=== PATIENT | male | born 1955 | race Caucasian/White ===

== ENCOUNTER 2023-07-23 12:24 | Observation (INO) | payer OTHER, MEDICARE, SELFPAY ==
[2023-07-23] VITALS (8 sets, daily range): BP systolic 114–172; BP diastolic 63–91; PULSE 67–80; RESP 16–20; TEMP 36.4–36.8; O2SAT 95–98; BMI 24.4; BMI 25.0
--- NOTE | 2023-07-23 12:41 | ECG_ITS ---
[facility] Test Date: 2023-07-23 Pat Name: ELSA RUTHERFORD Department: Room: - Gender: Male [employer]: : 1955 Requested By: YOANA MARI Order Number: [id number] Reading MD: SHILOH PATTERSON Measurements Intervals [place] Rate: 59 P: 52 IA: 160 QRS: 37 QRSD: 106 T: 73 QT: 430 QTc: 430 Interpretive Statements 1100 Sinus rhythm 4068 Nonspecific Twave abnormality 9130 borderline ECG No previous ECG available for comparison Electronically Signed On 07-24-2023 6:55:44 EST by SHILOH PATTERSON
--- NOTE | 2023-07-23 12:42 | ED_ITS ---
HPI - Abdominal Pain General Chief Complaint: Abdominal Pain Stated Complaint: CONSTIPATION Time Seen by Provider: 07/23/23 12:26 Source: patient Mode of arrival: walk-in History of Present Illness HPI narrative: 68-year-old male presents for abdominal pain. He thinks he may be getting another small bowel obstruction. Symptoms began within the last half a day and had a small bowel movement this morning. He is nauseous but has had no vomiting or fever. His pain is moderate and continuous. Related Data Home Medications Medication Instructions Recorded Confirmed gabapentin 300 mg capsule 300 mg PO Q12H 07/23/23 07/23/23 lisinopril 5 mg tablet 5 mg PO DAILY 07/23/23 07/23/23 metoprolol succinate 25 mg 25 mg PO DAILY 07/23/23 07/23/23 tablet,extended release 24 hr pantoprazole 20 mg tablet,delayed 20 mg PO DAILY 07/23/23 07/23/23 release ranolazine 500 mg tablet,extended 500 mg PO Q12H 07/23/23 07/23/23 release,12 hr sitagliptin phosphate 100 mg 100 mg PO DAILY 07/23/23 07/23/23 tablet (Januvia) tamsulosin 0.4 mg capsule 0.4 mg PO Q24H 07/23/23 07/23/23 venlafaxine 150 mg 150 mg PO DAILY 07/23/23 07/23/23 capsule,extended release 24 hr Allergies Allergy/AdvReac Type Severity Reaction Status Date / Time hydromorphone [From Dilaudid] AdvReac Unknown Anaphylaxis Verified 07/23/23 12:33 Review of Systems ROS Narrative A ten point review of systems is negative except as noted above. Exam Narrative Exam Narrative: Nurses note and vital signs reviewed and patient is not hypoxic. General: The patient appears well and in no apparent distress. Patient is resting comfortably on cart. Skin: Warm, dry, no pallor noted. There is no rash noted. Head: Normocephalic, atraumatic Eye: Normal conjunctiva, no drainage Ears, Nose, Mouth, and Throat: oral mucosa is moist. Nares patent. Cardiovascular: Regular Rate and Rhythm Respiratory: Patient is in no distress, no accessory muscle use, lungs are clear to auscultation, no wheezing, rales or rhonchi Back: non-tender GI: bowel sounds are hypoactive. He has numerous old healed surgical scars present. He has mild diffuse tenderness. Musculoskeletal: The patient has no evidence of calf tenderness, no pitting edema, symmetrical pulses noted bilaterally Neurological: A&O, normal speech Psychiatric: Cooperative Constitutional Vital Signs, click to edit/add: Last Vital Signs Temp 97.8 F 07/23/23 12:27 Pulse 67 07/23/23 12:27 Resp 16 07/23/23 12:27 BP 172/91 H 07/23/23 12:27 Pulse Ox 98 07/23/23 12:27 O2 Del Method Room Air 07/23/23 12:27 Course Vital Signs Vital signs: Vital Signs Temperature 97.8 F 07/23/23 12:27 Pulse Rate 67 07/23/23 12:27 Respiratory Rate 16 07/23/23 12:27 Blood Pressure 172/91 H 07/23/23 12:27 Pulse Oximetry 98 07/23/23 12:27 Oxygen Delivery Method Room Air 07/23/23 12:27 Temperature 97.8 F 07/23/23 12:27 Pulse Rate 67 07/23/23 12:27 Respiratory Rate 16 07/23/23 12:27 Blood Pressure 172/91 H 07/23/23 12:27 Pulse Oximetry 98 07/23/23 12:27 Oxygen Delivery Method Room Air 07/23/23 12:27 MDM - Abdominal Pain MDM Narrative Medical decision making narrative: abnormal CAT scan is noted with small bowel fluid-filled and dilated but no definite obstruction or stricture. I've spoken to Dr. Dunn and the patient is being admitted for observation. Treatment diagnosis and disposition were discussed with the patient and his . Differential Diagnosis Differential diagnosis: Likely abdominal pain, constipation, diverticulitis, gastroenteritis, pancreatitis and small bowel obstruction Lab Data Attestation: I reviewed the patient's lab results. Labs: Lab Results 07/23/23 Range/Units 12:41 WBC 9.1 (4.0-11.0) 10^3/uL RBC 5.08 (4.70-6.10) 10^6/uL Hgb 14.3 (14.0-18.0) g/dL Hct 43.7 (42.0-54.0) % MCV 86.0 (80.0-94.0) fL MCH 28.1 (25.9-34.0) pg MCHC 32.7 (29.9-35.2) g/dL RDW 13.0 (11.0-15.0) % Plt Count 140 L (150-450) 10^3/uL MPV 9.9 (9.5-13.5) fL Neut % (Auto) 84.4 H (43.0-75.0) % Lymph % (Auto) 8.3 L (20.5-60.0) % Garrard % (Auto) 6.2 (1.7-12.0) % Eos % (Auto) 0.8 L (0.9-7.0) % Baso % (Auto) 0.1 L (0.2-2.0) % Neut # (Auto) 7.7 H (1.4-6.5) 10^3/uL Lymph # (Auto) 0.8 L (1.2-3.8) 10^3/uL Garrard # (Auto) 0.6 (0.3-0.8) 10^3/uL Eos # (Auto) 0.1 (0.0-0.7) 10^3/uL Baso # (Auto) 0.0 (0.0-0.1) 10^3/uL Abs Immat Gran (auto) 0.02 (0.00-0.03) 10^3/uL Imm/Tot Granulo (auto) 0.2 (0.0-0.5) % Sodium 133 L (136-145) mmol/L Potassium 4.2 (3.5-5.1) mmol/L Chloride 96 L (98-107) mmol/L Carbon Dioxide 29.4 (21.0-32.0) mmol/L Anion Gap 11.8 BUN 14.0 (7.0-18.0) mg/dL Creatinine 1.21 (0.70-1.30) mg/dL Est GFR ( Amer) >60 (>=60) Est GFR (Non-Af Amer) 60 (>=60) BUN/Creatinine Ratio 11.6 Glucose 198 H (74-106) mg/dL Calcium 9.6 (8.5-10.1) mg/dL Total Bilirubin 0.6 (0.2-1.0) mg/dL Direct Bilirubin 0.1 (0.0-0.2) mg/dL AST 39 H (15-37) U/L ALT 31 (16-63) U/L Alkaline Phosphatase 60 (46-116) U/L Total Protein 7.8 (6.4-8.2) g/dL Albumin 4.1 (3.4-5.0) g/dL Globulin 3.7 g/dL Albumin/Globulin Ratio 1.1 Amylase 46 (25-115) U/L Lipase 35.0 (16.0-77.0) U/L Imaging Data CT scan - abdomen: Radiologist's impression: Procedure: CT abdomen pelvis w con EXAMINATION: CT abdomen pelvis w con HISTORY: diffuse abdominal pain, possible bowel obstruction COMPARISON: CT abdomen pelvis 01/03/2023 TECHNIQUE: Axial, Coronal, and Sagittal images were obtained without and/or with IV contrast as indicated by examination type. Dose reduction techniques were achieved by using automated exposure control and/or adjustment of mA and/or kV according to patient size and/or use of iterative reconstruction technique. FINDINGS: LUNG BASES: Stable trainee shaped opacity within posterior left lung base suspected represent scarring or atelectasis. LIVER: Stable small cysts or hemangiomas. No enlargement, atrophy, suspicious density, or significant focal lesion. BILIARY: Cholecystectomy. PANCREAS: No lesion, fluid collection, or abnormal duct dilatation. Partial pancreatectomy; no appreciable body or tail. SPLEEN: No enlargement or focal lesion. ADRENALS: No mass or enlargement. KIDNEYS: Stable small hypodense lesion within right and left kidney suspected represent cysts. Multiple nonobstructing stones bilaterally. BOWEL/MESENTERY: Fluid-filled distended loops of mid and distal small bowel up to point of anastomosis with the proximal transverse colon; no appreciable obstruction or stricture at site of anastomosis. No abnormal bowel wall thickening or appreciable mass. No free air or free fluid. AORTA/VASCULAR: Atherosclerotic disease. No aneurysm or dissection. RETROPERITONEUM: No mass or adenopathy. LYMPH NODES: No adenopathy. URINARY BLADDER: Mild circumferential wall thickening, likely muscular hypertrophy. PELVIC ORGANS: No visible mass. Pelvic organs appropriate for patient age. ABDOMINAL WALL: No mass or hernia. BONES: No bony lesion or fracture. Moderate disc space narrowing L4-5. OTHER: Negative. IMPRESSION: 1. Abnormal dilation of mid and distal small bowel which is fluid-filled. This was seen on prior studies well, and it extends to its anastomosis with the proximal transverse colon. No identifiable reason for change in caliber at the anastomosis. Electronically authenticated by: SHAUNA REYES Date: 07/23/2023 14:43 Discharge Plan Discharge Chief Complaint: Abdominal Pain Time of Disposition Decision: 16:11 Prescriptions / Home Meds: No Action gabapentin 300 mg capsule 300 mg PO Q12H lisinopril 5 mg tablet 5 mg PO DAILY metoprolol succinate 25 mg tablet extended release 24 hr 25 mg PO DAILY ranolazine 500 mg tablet extended release 12 hr 500 mg PO Q12H Januvia 100 mg tablet 100 mg PO DAILY tamsulosin 0.4 mg capsule 0.4 mg PO Q24H venlafaxine 150 mg capsule,extended release 24hr 150 mg PO DAILY pantoprazole 20 mg tablet,delayed release (DR/EC) 20 mg PO DAILY
[2023-07-23 12:50] LABS: Basophils Percent Auto 0.1 % (0.2-2.0); Eosinophils Absolute Auto 0.1 10^3/uL (0.0-0.7); Eosinophils Percent Auto 0.8 % (0.9-7.0); Hematocrit 43.7 % (42.0-54.0); Hemoglobin 14.3 g/dL (14.0-18.0); Immature Granulocytes Abs Auto 0.02 10^3/uL (0.00-0.03); Immature Granulocytes Pct Auto 0.2 % (0.0-0.5); Lymphocytes Absolute Auto 0.8 10^3/uL (1.2-3.8); Lymphocytes Percent Auto 8.3 % (20.5-60.0); Mean Corpuscular HGB Conc 32.7 g/dL (29.9-35.2); Mean Corpuscular Hemoglobin 28.1 pg (25.9-34.0); Mean Platelet Volume 9.9 fL (9.5-13.5); Monocytes Absolute Auto 0.6 10^3/uL (0.3-0.8); Monocytes Percent Auto 6.2 % (1.7-12.0); Neutrophils Absolute Auto 7.7 10^3/uL (1.4-6.5); Neutrophils Percent Auto 84.4 % (43.0-75.0); Platelet Count 140 10^3/uL (150-450); Red Blood Count 5.08 10^6/uL (4.70-6.10); White Blood Count 9.1 10^3/uL (4.0-11.0)
[2023-07-23 13:04] LABS: Alanine Aminotransferase 31 U/L (16-63); Albumin Globulin Ratio 1.1; Albumin Level 4.1 g/dL (3.4-5.0); Alkaline Phosphatase 60 U/L (46-116); Amylase 46 U/L (25-115); Anion Gap 11.8; Aspartate Amino Transferase 39 U/L (15-37); BUN Creatinine Ratio 11.6; Bilirubin Direct 0.1 mg/dL (0.0-0.2); Bilirubin Total 0.6 mg/dL (0.2-1.0); Calcium 9.6 mg/dL (8.5-10.1); Carbon Dioxide 29.4 mmol/L (21.0-32.0); Chloride 96 mmol/L (98-107); Estimated GFR (African America >60 (>=60); Estimated GFR (Non-African Ame 60 (>=60); Globulin 3.7 g/dL; Glucose 198 mg/dL (74-106); Potassium 4.2 mmol/L (3.5-5.1); Sodium 133 mmol/L (136-145); Total Protein 7.8 g/dL (6.4-8.2)
[2023-07-23] MEDS: ONDANSETRON PF 4 MG/2 ML VIAL IV ×3 (13:07→19:33)
[2023-07-23] MEDS: MORPHINE SULFATE 4 MG/ML VIAL IV ×2 (13:07→15:12)
[2023-07-23] MEDS: 0.9 % SODIUM CHLORIDE 500 ML IV (13:07)
[2023-07-23] MEDS: 0.9 % SODIUM CHLORIDE 1,000 ML 125 ML IV (16:01)
--- NOTE | 2023-07-23 16:13 | PM.HP ---
H&P: HPI History of Present Illness Chief complaint: CONSTIPATION ADB PAIN ABNORMAL CT SCAN Narrative: Patient is a 68 y.o White male with past medical history of Type 2 diabetes, non-insulin dependent, GERD, HTN, Depression, BPH, and diabetic neuropathy who presents with 2 day history of abdominal pain. He has history of bowel obstructions. He had a Gallbladder removal and colon resection in the past with anastomosis. He did have small BM this morning. Some nausea, no vomiting or fever. CT scan showed dilated Bowel but no definite obstruction. Dr. Dunn of was notified and recommended admission for observation, pain control, NPO and IVF. Patient will be admitted to [facility] for further plan of care. At the time of admission exam he notes diffuse abdominal pain, some nausea, no fevers or chills, no n/v. Review of Systems ROS Narrative ROS: a complete review of systems were reviewed with patient and are positive as below or listed in History of Chief Complaint. General: no fever, chills, night sweats Head: no headache, trauma, visual changes, nausea or vomiting Skin: no reported rashes, itching or sores Eyes: no blurriness of vision Ears: no reported hearing loss, vertigo, earache, or tinnitus Throat: no sore throat, hoarseness, swelling of neck, or tongue pain Heart: no chest pain Lungs: no shortness of breath or cough GI: no diarrhea or vomiting but nausea Urinary: no urinary urgency, frequency or pain Neuro: no numbness or tingling HEM: no bleeding issues or bruising ENDO: no thyroid problems Psych: no anxiety or depression PFSH PFSH Medical History BPH (benign prostatic hyperplasia) ?N40.0 - Benign prostatic hyperplasia without lower urinary tract symptoms (ICD-10) Diabetic neuropathic arthropathy ?E11.610 - Type 2 diabetes mellitus with diabetic neuropathic arthropathy (ICD-10) GERD (gastroesophageal reflux disease) ?K21.9 - Gastro-esophageal reflux disease without esophagitis (ICD-10) Hypertension ?I10 - Essential (primary) hypertension (ICD-10) Type 2 diabetes mellitus ?E11.9 - Type 2 diabetes mellitus without complications (ICD-10) Surgical History (Updated 07/23/23 @ 17:00 by Amy Espinoza, [employer]) H/O heart bypass surgery ?Z95.1 - Presence of aortocoronary bypass graft (ICD-10) History of bowel resection ?Z90.49 - Acquired absence of other specified parts of digestive tract (ICD-10) Meds Home Medications and Allergies Home Medications Medication Instructions Recorded Confirmed Type atorvastatin 10 mg tablet (Lipitor) 10 mg PO QPM 07/23/23 07/23/23 History ferrous sulfate 325 mg (65 mg 325 mg PO DAILY 07/23/23 07/23/23 History iron) tablet (FeroSul) gabapentin 300 mg capsule 300 mg PO Q12H 07/23/23 07/23/23 History insulin degludec 200 unit/mL (3 40 unit subcut DAILY 07/23/23 07/23/23 History mL) subcutaneous pen (Tresiba FlexTouch U-200 insulin) isosorbide mononitrate 60 mg 60 mg PO DAILY 07/23/23 07/23/23 History tablet,extended release 24 hr lisinopril 5 mg tablet 5 mg PO DAILY 07/23/23 07/23/23 History metformin 1,000 mg tablet 1,000 mg PO BID 07/23/23 07/23/23 History metoprolol succinate 25 mg 25 mg PO DAILY 07/23/23 07/23/23 History tablet,extended release 24 hr pantoprazole 20 mg tablet,delayed 20 mg PO DAILY 07/23/23 07/23/23 History release polyethylene glycol 3350 17 gram 17 g PO DAILY 07/23/23 07/23/23 History oral powder packet (Miralax) ranolazine 500 mg tablet,extended 500 mg PO Q12H 07/23/23 07/23/23 History release,12 hr sitagliptin phosphate 100 mg 100 mg PO DAILY 07/23/23 07/23/23 History tablet (Januvia) sucralfate 1 gram tablet (Carafate) 1 g PO ACHS 07/23/23 07/23/23 History tamsulosin 0.4 mg capsule 0.4 mg PO Q24H 07/23/23 07/23/23 History venlafaxine 150 mg 150 mg PO DAILY 07/23/23 07/23/23 History capsule,extended release 24 hr Allergies Allergy/AdvReac Type Severity Reaction Status Date / Time hydromorphone [From Dilaudid] AdvReac Unknown Anaphylaxis Verified 07/23/23 12:33 Exam Narrative Exam Narrative: General: Patient is alert, and oriented to person, place and time with normal affect, proper hygiene Skin: no visible rashes, or ulcers Head: atraumatic, acephalic Eyes: PERRLA, no nystagmus present, conjunctiva clear, no scleral icterus Ears: normal gross auditory acuity Nose: symmetric, no discharge, no maxillary or frontal sinus tenderness Mouth/Throat: no erythema, exudate, or tonsillar enlargement, normal dentition Neck: no masses palpated, normal thyroid, no JVD or audible carotid bruits Heart: Normal rate and rhythm, holosystolic murmur no rubs or gallops Lungs: no audible wheezes, crackles and normal breath sounds all lung goodson Abdomen: diminished bowel sounds but present x 4 quadrants, mild distension, incisional/reducible hernia Musculoskeletal: no swelling bilateral lower extremities Neuro: CN II-X grossly intact Constitutional Vital Signs, click to edit/add: Last Vital Signs Temp 97.8 F 07/23/23 12:27 Pulse 67 07/23/23 12:27 Resp 16 07/23/23 12:27 BP 172/91 H 07/23/23 12:27 Pulse Ox 98 07/23/23 12:27 O2 Del Method Room Air 07/23/23 12:27 Results Labs Labs: Short CBC 07/23/23 Range/Units 12:41 WBC 9.1 (4.0-11.0) 10^3/uL Hgb 14.3 (14.0-18.0) g/dL Hct 43.7 (42.0-54.0) % Plt Count 140 L (150-450) 10^3/uL BMP 07/23/23 12:41 Sodium 133 L Potassium 4.2 Chloride 96 L Carbon Dioxide 29.4 BUN 14.0 Creatinine 1.21 Glucose 198 H Calcium 9.6 Liver Function 07/23/23 Range/Units 12:41 Total Bilirubin 0.6 (0.2-1.0) mg/dL Direct Bilirubin 0.1 (0.0-0.2) mg/dL AST 39 H (15-37) U/L ALT 31 (16-63) U/L Alkaline Phosphatase 60 (46-116) U/L Albumin 4.1 (3.4-5.0) g/dL Assessment and Plan Assessment and Plan (1) Intestinal adhesions with partial obstruction: Assessment and Plan: dilated bowel seen on CT, history of abdominal surgery, WBC's normal; NPO, IVF with NS @125, pain control but narcotics can slow functioning; may benefit from prokinetic agent like Reglan in the future, consult General Surgery. No need for NG unless vomiting occurs. (2) Abdominal pain: Assessment and Plan: see #1 (3) Hypertension: Assessment and Plan: resume home medications (4) Type 2 diabetes mellitus: Assessment and Plan: SSI, monitor glucose 6 hours (5) Diabetic neuropathic arthropathy: Assessment and Plan: continue gabapentin (6) GERD (gastroesophageal reflux disease): Assessment and Plan: continue protonix (7) BPH (benign prostatic hyperplasia): Assessment and Plan: continue flomax Plan patient is a full code lovenox for dvt prophylaxis patient is observation status and is not expected to stay more than 2 midnights
[2023-07-23 17:05] LABS: Bilirubin Urine NEGATIVE (NEGATIVE); Blood Urine NEGATIVE (NEGATIVE); Clarity Urine CLEAR (CLEAR); Color Urine YELLOW (YELLOW); Glucose Urine UA NEGATIVE (NEGATIVE); Ketones Urine NEGATIVE (NEGATIVE); Leukocyte Esterase Urine NEGATIVE (NEGATIVE); Nitrite Urine NEGATIVE (NEGATIVE); Protein Urine NEGATIVE (NEG/TRACE); Urobilinogen Urine 0.2 EU/dL (0.2-1.0); pH Urine 5.5 (5.0-9.0)
[2023-07-23 17:15] LABS: Bacteria Urine NONE SEEN #/HPF (NONE SEEN); Cast Seen? NONE SEEN #/LPF (NONE SEEN); Crystals Seen? None Seen #/HPF (None Seen); Mucus Urine NONE SEEN (NONE SEEN); RBC Urine NONE SEEN #/HPF (0-2); Squamous Epithelial Cell Urine RARE #/LPF (NONE/RARE); WBC Urine NONE SEEN #/HPF (NONE SEEN)
[2023-07-23 18:11] LABS: Glucometer 194 mg/dL (74-106)
[2023-07-23] MEDS: MORPHINE SULFATE 2 MG/ML SYRINGE IV (19:34)
[2023-07-23] MEDS: ENOXAPARIN SODIUM 40 MG/0.4 ML SYRINGE SUBQ (22:07)
[2023-07-23] MEDS: PANTOPRAZOLE SODIUM 40 MG VIAL IV (22:08)
[2023-07-24] VITALS (11 sets, daily range): BP systolic 111–117; BP diastolic 61–75; PULSE 73–101; RESP 18; TEMP 36.6–36.8; O2SAT 90–93
[2023-07-24 00:04] LABS: Glucometer 186 mg/dL (74-106)
--- NOTE | 2023-07-24 04:06 | PC.NURSE ---
Patient had a medium loose BM with large amount of undigested corn noted. Strong odor. pain level was a 0-10 and no nausea reported after BM
[2023-07-24 05:39] LABS: Alanine Aminotransferase 95 U/L (16-63); Albumin Globulin Ratio 0.9; Albumin Level 3.2 g/dL (3.4-5.0); Alkaline Phosphatase 65 U/L (46-116); Anion Gap 13.2; Aspartate Amino Transferase 60 U/L (15-37); Bilirubin Total 0.8 mg/dL (0.2-1.0); Calcium 8.6 mg/dL (8.5-10.1); Carbon Dioxide 26.9 mmol/L (21.0-32.0); Chloride 99 mmol/L (98-107); Estimated GFR (African America >60 (>=60); Estimated GFR (Non-African Ame >60 (>=60); Globulin 3.5 g/dL; Glucose 189 mg/dL (74-106); Magnesium 1.6 mg/dL (1.8-2.4); Potassium 4.1 mmol/L (3.5-5.1); Sodium 135 mmol/L (136-145); Total Protein 6.7 g/dL (6.4-8.2)
[2023-07-24 05:47] LABS: Basophils Percent Auto 0.3 % (0.2-2.0); Eosinophils Absolute Auto 0.1 10^3/uL (0.0-0.7); Eosinophils Percent Auto 2.1 % (0.9-7.0); Hematocrit 42.3 % (42.0-54.0); Hemoglobin 13.9 g/dL (14.0-18.0); Lymphocytes Absolute Auto 0.3 10^3/uL (1.2-3.8); Mean Corpuscular HGB Conc 32.9 g/dL (29.9-35.2); Mean Corpuscular Hemoglobin 28.4 pg (25.9-34.0); Mean Corpuscular Volume 86.5 fL (80.0-94.0); Mean Platelet Volume 10.5 fL (9.5-13.5); Monocytes Absolute Auto 0.6 10^3/uL (0.3-0.8); Monocytes Percent Auto 18.2 % (1.7-12.0); Neutrophils Absolute Auto 2.4 10^3/uL (1.4-6.5); Neutrophils Percent Auto 71.4 % (43.0-75.0); Platelet Count 127 10^3/uL (150-450); Red Blood Count 4.89 10^6/uL (4.70-6.10); Red Cell Distribution Width 13.2 % (11.0-15.0); White Blood Count 3.4 10^3/uL (4.0-11.0)
[2023-07-24 06:21] LABS: Glucometer 176 mg/dL (74-106)
--- NOTE | 2023-07-24 07:04 | PM.GSCN ---
History of Present Illness Consult details Consult date: 07/24/23 Reason for consult: abdominal pain Requesting physician: Franklin Madera Narrative: Zach Espinoza is a 68-year-old male seen on the [facility] floor for abdominal pain, nausea, and vomiting. Patient presented to the Emergency Department on 07/23 due to abdominal pain and nausea. The pain started on the morning of the and progressively got worse requiring him to seek treatment. Patient states these symptoms started in the right lower quadrant and spread throughout the entire abdomen. The pain is continuous and progressed quickly. He describes it as a tightness/pressure and rated it a 10/10 upon arrival to the Emergency Department. Patient has experienced these symptoms before, as he has had multiple small bowel obstructions in the past. Today, patient feels a lot better. His abdominal pain has almost completely subsided but he still feels some soreness. He vomited multiple times late last night which helped reduce his pain. Patient has an extensive history of multiple abdominal surgeries. He stated back in 2012 he had a gallbladder leak/rupture which resulted in multiple surgeries and an extensive hospital stay. He said these procedures were performed by Dr. Umanzor at [facility]. Review of Systems ROS Status of ROS 10 or more systems reviewed and unremarkable except as noted in history and below [facility] Medical History BPH (benign prostatic hyperplasia) ?N40.0 - Benign prostatic hyperplasia without lower urinary tract symptoms (ICD-10) Diabetic neuropathic arthropathy ?E11.610 - Type 2 diabetes mellitus with diabetic neuropathic arthropathy (ICD-10) GERD (gastroesophageal reflux disease) ?K21.9 - Gastro-esophageal reflux disease without esophagitis (ICD-10) Hypertension ?I10 - Essential (primary) hypertension (ICD-10) Type 2 diabetes mellitus ?E11.9 - Type 2 diabetes mellitus without complications (ICD-10) Surgical History H/O heart bypass surgery ?Z95.1 - Presence of aortocoronary bypass graft (ICD-10) History of bowel resection ?Z90.49 - Acquired absence of other specified parts of digestive tract (ICD-10) Hx of cholecystectomy ?Z90.49 - Acquired absence of other specified parts of digestive tract (ICD-10) Family History Father Family history of CHF (congestive heart failure) Family history of COPD (chronic obstructive pulmonary disease) Family history of cancer Family history of hypertension Grandfather Family history of diabetes mellitus Family history of myocardial infarction Mother Family history of hypertension Family history of stroke Social History Within the past year, how often did you have a drink containing alcohol: 4 or more times a week Within the past year, how many standard drinks containing alcohol did you have on a typical day: 1 or 2 Within the past year, how often did you have six or more drinks on one occasion: never Total score: 0 Score interpretation: Questions 2 and 3 are 0. It can be assumed that the patient's drinking is below the recommended limits. However, please confirm the accuracy of the patient's alcohol intake over the last few months. 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 Known occupational exposures/hazards: No Highest level of school completed/degree received: high school graduate Do you want help with school or training: No Are you now , , , , never or living with a partner: In a typical week, how many times do you talk on the telephone with family, friends, or neighbors: 3 or more times per week How often do you get together with friends or relatives: 3 or more times per week How often do you attend judaism or anabaptist services: never Do you belong to any clubs or organizations such as judaism groups unions, fraternal or athletic groups, or school groups: no Total score: 2 Score interpretation: A score of greater than or equal to 2 indicates the lowest level of social isolation. Little interest or pleasure in doing things: not at all Feeling down, depressed, or hopeless: not at all Feel stressed/tense/nervous/anxious/difficulty sleeping: not at all Due to disability, difficulty making decisions: No Do you think of yourself as: straight/heterosexual Gender Identity: male Meds Home Medications and Allergies Home Medications Medication Instructions Recorded Confirmed Type atorvastatin 10 mg tablet (Lipitor) 10 mg PO QPM 07/23/23 07/23/23 History ferrous sulfate 325 mg (65 mg 325 mg PO DAILY 07/23/23 07/23/23 History iron) tablet (FeroSul) gabapentin 300 mg capsule 300 mg PO Q12H 07/23/23 07/23/23 History insulin degludec 200 unit/mL (3 40 unit subcut DAILY 07/23/23 07/23/23 History mL) subcutaneous pen (Tresiba FlexTouch U-200 insulin) isosorbide mononitrate 60 mg 60 mg PO DAILY 07/23/23 07/23/23 History tablet,extended release 24 hr lisinopril 5 mg tablet 5 mg PO DAILY 07/23/23 07/23/23 History metformin 1,000 mg tablet 1,000 mg PO BID 07/23/23 07/23/23 History metoprolol succinate 25 mg 25 mg PO DAILY 07/23/23 07/23/23 History tablet,extended release 24 hr pantoprazole 20 mg tablet,delayed 20 mg PO DAILY 07/23/23 07/23/23 History release polyethylene glycol 3350 17 gram 17 g PO DAILY 07/23/23 07/23/23 History oral powder packet (Miralax) ranolazine 500 mg tablet,extended 500 mg PO Q12H 07/23/23 07/23/23 History release,12 hr sitagliptin phosphate 100 mg 100 mg PO DAILY 07/23/23 07/23/23 History tablet (Januvia) sucralfate 1 gram tablet (Carafate) 1 g PO ACHS 07/23/23 07/23/23 History tamsulosin 0.4 mg capsule 0.4 mg PO Q24H 07/23/23 07/23/23 History venlafaxine 150 mg 150 mg PO DAILY 07/23/23 07/23/23 History capsule,extended release 24 hr Allergies Allergy/AdvReac Type Severity Reaction Status Date / Time hydromorphone [From Dilaudid] AdvReac Unknown Anaphylaxis Verified 07/23/23 12:33 Exam Constitutional Vital Signs, click to edit/add: Last Vital Signs Temp 97.8 F 07/24/23 05:09 Pulse 97 H 07/24/23 05:09 Resp 18 07/24/23 05:09 BP 111/75 07/24/23 05:09 Pulse Ox 93 L 07/24/23 05:09 O2 Del Method Room Air 07/24/23 05:09 Respiratory Common normals: normal respiratory effort and clear to auscultation bilaterally Cardio Common normals: regular rate and regular rhythm Heart sounds: murmur GI Common normals: soft to palpation Auscultation: hypoactive bowel sounds (x4) Palpation: tender Results Labs Labs: Abnormal lab results 07/23/23 07/23/23 07/24/23 Range/Units 12:41 18:10 00:02 WBC (4.0-11.0) 10^3/uL Hgb (14.0-18.0) g/dL Plt Count 140 L (150-450) 10^3/uL Neut % (Auto) 84.4 H (43.0-75.0) % Lymph % (Auto) 8.3 L (20.5-60.0) % [place] % (Auto) (1.7-12.0) % Eos % (Auto) 0.8 L (0.9-7.0) % Baso % (Auto) 0.1 L (0.2-2.0) % Neut # (Auto) 7.7 H (1.4-6.5) 10^3/uL Lymph # (Auto) 0.8 L (1.2-3.8) 10^3/uL Sodium 133 L (136-145) mmol/L Chloride 96 L (98-107) mmol/L BUN (7.0-18.0) mg/dL Glucose 198 H (74-106) mg/dL Magnesium (1.8-2.4) mg/dL AST 39 H (15-37) U/L ALT (16-63) U/L Albumin (3.4-5.0) g/dL POC Glucose 194 H 186 H (74-106) mg/dL 07/24/23 07/24/23 Range/Units 04:51 06:17 WBC 3.4 L (4.0-11.0) 10^3/uL Hgb 13.9 L (14.0-18.0) g/dL Plt Count 127 L (150-450) 10^3/uL Neut % (Auto) (43.0-75.0) % Lymph % (Auto) 8.0 L (20.5-60.0) % [place] % (Auto) 18.2 H (1.7-12.0) % Eos % (Auto) (0.9-7.0) % Baso % (Auto) (0.2-2.0) % Neut # (Auto) (1.4-6.5) 10^3/uL Lymph # (Auto) 0.3 L (1.2-3.8) 10^3/uL Sodium 135 L (136-145) mmol/L [place] (98-107) mmol/L BUN 20.0 H (7.0-18.0) mg/dL Glucose 189 H (74-106) mg/dL Magnesium 1.6 L (1.8-2.4) mg/dL AST 60 H (15-37) U/L ALT 95 H (16-63) U/L Albumin 3.2 L (3.4-5.0) g/dL POC Glucose 176 H (74-106) mg/dL Diabetes panel 07/23/23 07/24/23 Range/Units 12:41 04:51 Sodium 133 L 135 L (136-145) mmol/L Potassium 4.2 4.1 (3.5-5.1) mmol/L Chloride 96 L 99 (98-107) mmol/L Carbon Dioxide 29.4 26.9 (21.0-32.0) mmol/L BUN 14.0 20.0 H (7.0-18.0) mg/dL Creatinine 1.21 1.11 (0.70-1.30) mg/dL Glucose 198 H 189 H (74-106) mg/dL Calcium 9.6 8.6 (8.5-10.1) mg/dL AST 39 H 60 H (15-37) U/L ALT 31 95 H (16-63) U/L Alkaline Phosphatase 60 65 (46-116) U/L Total Protein 7.8 6.7 (6.4-8.2) g/dL Albumin 4.1 3.2 L (3.4-5.0) g/dL Calcium panel 07/23/23 07/24/23 Range/Units 12:41 04:51 Calcium 9.6 8.6 (8.5-10.1) mg/dL Albumin 4.1 3.2 L (3.4-5.0) g/dL Pituitary panel 07/23/23 07/24/23 Range/Units 12:41 04:51 Sodium 133 L 135 L (136-145) mmol/L Potassium 4.2 4.1 (3.5-5.1) mmol/L Chloride 96 L 99 (98-107) mmol/L Carbon Dioxide 29.4 26.9 (21.0-32.0) mmol/L BUN 14.0 20.0 H (7.0-18.0) mg/dL Creatinine 1.21 1.11 (0.70-1.30) mg/dL Glucose 198 H 189 H (74-106) mg/dL Calcium 9.6 8.6 (8.5-10.1) mg/dL Adrenal panel 07/23/23 07/24/23 Range/Units 12:41 04:51 Sodium 133 L 135 L (136-145) mmol/L Potassium 4.2 4.1 (3.5-5.1) mmol/L Chloride 96 L 99 (98-107) mmol/L Carbon Dioxide 29.4 26.9 (21.0-32.0) mmol/L BUN 14.0 20.0 H (7.0-18.0) mg/dL Creatinine 1.21 1.11 (0.70-1.30) mg/dL Glucose 198 H 189 H (74-106) mg/dL Calcium 9.6 8.6 (8.5-10.1) mg/dL Total Bilirubin 0.6 0.8 (0.2-1.0) mg/dL AST 39 H 60 H (15-37) U/L ALT 31 95 H (16-63) U/L Alkaline Phosphatase 60 65 (46-116) U/L Total Protein 7.8 6.7 (6.4-8.2) g/dL Albumin 4.1 3.2 L (3.4-5.0) g/dL All other labs normal. Imaging Abdominal x-ray: report reviewed Abdomen CT scan report/results: report reviewed Assessment and Plan Assessment and Plan (1) Intestinal adhesions with partial obstruction: (2) Abdominal pain: (3) Hypertension: (4) Type 2 diabetes mellitus: (5) Diabetic neuropathic arthropathy: (6) GERD (gastroesophageal reflux disease): (7) BPH (benign prostatic hyperplasia): Plan Clinically, patient appears well no distress. Order small bowel series to investigate if obstruction is present.
--- NOTE | 2023-07-24 07:19 | FL_ITS ---
[address] [address] Patient Name: ELSA RUTHERFORD MRN: [id number] date: 1955 Sex: M Assigned Patient Location: [place] Current Patient Location: [place] Accession/Order Number: [id number] Exam Date: 07/24/2023 08:00 Report Date: 07/24/2023 10:06 At the request of: MARTA MARTINEZ Procedure: FL small bowel EXAM: EXAMINATION: FL small bowel HISTORY: abdominal pain COMPARISON: 07/23/2023 FLUOROSCOPY TIME: Fluoroscopy was not utilized TECHNIQUE: Small bowel series was performed in the usual manner. [employer] abdominal radiograph was performed. Standard level fluoroscopic mode of operation utilized. FINDINGS: DUODENUM: Normal. No ulceration or diverticulum. JEJUNUM: Normal. Normal motility. No obstruction or visible lesion. ILEUM: Normal. Normal motility. No obstruction or visible lesion. OTHER: Right nephrolithiasis measuring up to 10 mm in the lower pole. Degenerative changes of the spine and hips. Small bowel transit time of 30 minutes FL/FL small bowel IMPRESSION: Normal exam with a nonobstructive bowel gas pattern Electronically authenticated by: MARY LOPES Date: 07/24/2023 10:06
[2023-07-24] MEDS: 0.9 % SODIUM CHLORIDE 1,000 ML 125 ML IV (08:17)
--- NOTE | 2023-07-24 09:12 | CM.NOTE ---
Medicare Outpatient Observation Notice discussed with pt, pt verbalizes understanding and signs paper. Original given to pt and copy placed on pt's chart.
--- NOTE | 2023-07-24 09:21 | PM.PN ---
Progress Note: Subjective Subjective Interval history: The Patient is feeling much improved this morning. He had 2 episodes of vomiting and 2 BM's this morning. Had small bowel follow through and was normal today. He is eager to start eating, no fevers or chills. abdominal pain is improved. Exam Narrative Exam Narrative: General: Patient is alert, and oriented to person, place and time with normal affect, proper hygiene Skin: no visible rashes, or ulcers Head: atraumatic, acephalic Heart: Normal rate and rhythm, holosystolic murmur no rubs or gallops Lungs: no audible wheezes, crackles and normal breath sounds all lung [place]son Abdomen: audible bowel sounds x 4 quadrants, no distension, incisional/reducible hernia Musculoskeletal: no swelling bilateral lower extremities Neuro: CN II-X grossly intact Constitutional Vital Signs, click to edit/add: Last Vital Signs Temp 97.8 F 07/24/23 05:09 Pulse 90 07/24/23 07:58 Resp 18 07/24/23 05:09 BP 111/75 07/24/23 05:09 Pulse Ox 93 L 07/24/23 05:09 O2 Del Method Room Air 07/24/23 05:09 Progress Note: Objective Labs Labs: Short CBC 07/23/23 07/24/23 Range/Units 12:41 04:51 WBC 9.1 3.4 L (4.0-11.0) 10^3/uL Hgb 14.3 13.9 L (14.0-18.0) g/dL Hct 43.7 42.3 (42.0-54.0) % Plt Count 140 L 127 L (150-450) 10^3/uL BMP 07/23/23 07/24/23 12:41 04:51 Sodium 133 L 135 L Potassium 4.2 4.1 Chloride 96 L 99 Carbon Dioxide 29.4 26.9 BUN 14.0 20.0 H Creatinine 1.21 1.11 Glucose 198 H 189 H Calcium 9.6 8.6 Liver Function 07/23/23 07/24/23 Range/Units 12:41 04:51 Total Bilirubin 0.6 0.8 (0.2-1.0) mg/dL Direct Bilirubin 0.1 (0.0-0.2) mg/dL AST 39 H 60 H (15-37) U/L ALT 31 95 H (16-63) U/L Alkaline Phosphatase 60 65 (46-116) U/L Albumin 4.1 3.2 L (3.4-5.0) g/dL Urine 07/23/23 Range/Units 16:49 Urine Color Yellow (YELLOW) Urine Clarity Clear (CLEAR) Urine pH 5.5 (5.0-9.0) Ur Specific [place] 1.010 (1.005-1.025) Urine Protein Negative (NEG/TRACE) mg/dL Urine Glucose (UA) Negative (NEGATIVE) mg/dL Progress Note: A&P Assessment and Plan (1) Intestinal adhesions with partial obstruction: Assessment and Plan: dilated bowel seen on CT, history of abdominal surgery, WBC's normal; consult General Surgery. symptoms improved with small bowel follow through study today, had a few BM's, will advance diet and may discharge home this evening. (2) Abdominal pain: Assessment and Plan: improved. (3) Hypertension: Assessment and Plan: resume home medications (4) Type 2 diabetes mellitus: Assessment and Plan: SSI, monitor glucose 6 hours (5) Diabetic neuropathic arthropathy: Assessment and Plan: continue gabapentin (6) GERD (gastroesophageal reflux disease): Assessment and Plan: continue protonix (7) BPH (benign prostatic hyperplasia): Assessment and Plan: continue flomax Plan patient is a full code lovenox for dvt prophylaxis patient is observation status and is not expected to stay more than 2 midnights
--- NOTE | 2023-07-24 10:51 | CM.NOTE ---
Rounds made with Dr. Zafar, will advance pt diet today.
[2023-07-24] MEDS: TAMSULOSIN HCL 0.4 MG CAPSULE PO (12:10)
[2023-07-24] MEDS: RANOLAZINE 500 MG TAB.ER.12H PO (12:10)
[2023-07-24] MEDS: LISINOPRIL 5 MG TABLET PO (12:10)
[2023-07-24] MEDS: ISOSORBIDE MONONITRATE 60 MG TAB.ER.24H PO (12:10)
[2023-07-24] MEDS: VENLAFAXINE HCL ER 150 MG CAPSULE PO (12:10)
[2023-07-24] MEDS: METOPROLOL SUCCINATE 25 MG TAB.ER.24H PO (12:10)
[2023-07-24] MEDS: GABAPENTIN 300 MG CAPSULE PO (12:10)
--- NOTE | 2023-07-24 16:40 | PM.DS1 ---
DS: Providers Provider Date of admission: 07/23/23 16:41 Primary care physician: Nikunj Ireland MD Admitting clinician: Emili Zafar Consults: 07/23/23 15:59 Consult to General Surgeon Routine Consulting Provider: Donato Dunn Reason for consultation: partial SBO Has provider been notified: Yes Occupational Therapy Eval and Treat Routine Reason for consultation: weakness Has provider been notified: No Physical Therapy Eval and Treat Routine Reason for consultation: weakness Has provider been notified: No Attending physician on discharge: Emili Zafar DS: Diagnosis Discharge Diagnosis (1) Intestinal adhesions with partial obstruction: (2) Abdominal pain: (3) Hypertension: (4) Type 2 diabetes mellitus: (5) Diabetic neuropathic arthropathy: (6) GERD (gastroesophageal reflux disease): (7) BPH (benign prostatic hyperplasia): DS: Summary Hospital Course Hospital Course: dilated bowel seen on CT, history of abdominal surgery, WBC's normal; NPO, IVF with NS @125, pain control but narcotics can slow functioning; consult General Surgery. No need for NG. Patient had small bowel follow through study, started passing stool. Feels much better. Normal study. advanced diet and doing great. Discharge home tonight. close follow up with PCP. Return to ER with worsening symptoms. Status at Discharge Functional status at discharge: independent ambulation Overall status at discharge: patient is back to baseline Time Spent with Patient Time attestation: Total time spent providing and/or coordinating discharge services: Time spent: less than 30 minutes Exam Narrative Exam Narrative: No changes to discharge exam from the progress note dated 07/24/23 Constitutional Vital Signs, click to edit/add: Last Vital Signs Temp 98.2 F 07/24/23 14:15 Pulse 84 07/24/23 16:24 Resp 18 07/24/23 14:15 BP 117/61 07/24/23 14:15 Pulse Ox 90 L 07/24/23 14:15 O2 Del Method Room Air 07/24/23 14:15 DS: Data Data Completed and Pending Labs on day of discharge: Labs from last 24 hours 07/24/23 07/24/23 07/24/23 06:17 04:51 00:02 WBC 3.4 L RBC 4.89 Hgb 13.9 L Hct 42.3 MCV 86.5 MCH 28.4 MCHC 32.9 RDW 13.2 Plt Count 127 L MPV 10.5 Neut % (Auto) 71.4 Lymph % (Auto) 8.0 L [place] % (Auto) 18.2 H Eos % (Auto) 2.1 Baso % (Auto) 0.3 Neut # (Auto) 2.4 Lymph # (Auto) 0.3 L [place] # (Auto) 0.6 Eos # (Auto) 0.1 Baso # (Auto) 0.0 Abs Immat Gran (auto) 0.00 Imm/Tot Granulo (auto) 0.0 Sodium 135 L Potassium 4.1 Chloride 99 Carbon Dioxide 26.9 Anion Gap 13.2 BUN 20.0 H Creatinine 1.11 Est GFR ( Amer) >60 Est GFR (Non-Af Amer) >60 BUN/Creatinine Ratio 18.0 Glucose 189 H Calcium 8.6 Magnesium 1.6 L Total Bilirubin 0.8 AST 60 H ALT 95 H Alkaline Phosphatase 65 Total Protein 6.7 Albumin 3.2 L Globulin 3.5 Albumin/Globulin Ratio 0.9 Urine Color Urine Clarity Urine pH Ur Specific [place] Urine Protein Urine Glucose (UA) Urine Ketones Urine Occult Blood Urine Nitrite Urine Bilirubin Urine Urobilinogen Ur Leukocyte Esterase Urine RBC Urine WBC Ur Squamous Epith Cells Urine Crystals Urine Bacteria Urine Casts Urine Mucus POC Glucose 176 H 186 H 07/23/23 07/23/23 18:10 16:49 WBC RBC Hgb Hct MCV MCH MCHC RDW Plt Count MPV Neut % (Auto) Lymph % (Auto) [place] % (Auto) Eos % (Auto) Baso % (Auto) Neut # (Auto) Lymph # (Auto) [place] # (Auto) Eos # (Auto) Baso # (Auto) Abs Immat Gran (auto) Imm/Tot Granulo (auto) Sodium Potassium Chloride Carbon Dioxide Anion Gap BUN Creatinine Est GFR ( Amer) Est GFR (Non-Af Amer) BUN/Creatinine Ratio Glucose Calcium Magnesium Total Bilirubin AST ALT Alkaline Phosphatase Total Protein Albumin Globulin Albumin/Globulin Ratio Urine Color Yellow Urine Clarity Clear Urine pH 5.5 Ur Specific [place] 1.010 Urine Protein Negative Urine Glucose (UA) Negative Urine Ketones Negative Urine Occult Blood Negative Urine Nitrite Negative Urine Bilirubin Negative Urine Urobilinogen 0.2 Ur Leukocyte Esterase Negative Urine RBC None seen Urine WBC None seen Ur Squamous Epith Cells Rare Urine Crystals None seen Urine Bacteria None seen Urine Casts None seen Urine Mucus None seen POC Glucose 194 H Discharge Plan Discharge Disposition: (FBC OBS) Home, Self-Care Condition: Good Discharge Medications: Continued gabapentin 300 mg capsule 300 mg PO Q12H lisinopril 5 mg tablet 5 mg PO DAILY metoprolol succinate 25 mg tablet extended release 24 hr 25 mg PO DAILY ranolazine 500 mg tablet extended release 12 hr 500 mg PO Q12H Januvia 100 mg tablet 100 mg PO DAILY tamsulosin 0.4 mg capsule 0.4 mg PO Q24H venlafaxine 150 mg capsule,extended release 24hr 150 mg PO DAILY pantoprazole 20 mg tablet,delayed release (DR/EC) 20 mg PO DAILY insulin degludec [Tresiba FlexTouch U-200] 200 unit/mL (3 mL) insulin pen 40 unit subcut DAILY atorvastatin [Lipitor] 10 mg tablet 10 mg PO QPM metformin 1,000 mg tablet 1,000 mg PO BID ferrous sulfate [FeroSul] 325 mg (65 mg iron) tablet 325 mg PO DAILY sucralfate [Carafate] 1 gram tablet 1 g PO ACHS polyethylene glycol 3350 [Miralax] 17 gram powder in packet 17 g PO DAILY isosorbide mononitrate 60 mg tablet extended release 24 hr 60 mg PO DAILY Activity: increase activity as tolerated Diet: advance to your usual diet Follow Up Appointments: follow up with pcp 5-7 days
--- NOTE | 2023-07-25 12:16 | CM.DCFOLLOWU ---
Person spoke with: Yolanda-stated patient was out running an errand How are you feeling? he has been doing ok and easing back into foods How is your pain? none Did you understand your discharge instructions? yes Do you have any questions about your discharge instructions? no Were you given any prescriptions at discharge? n/a Were you able to get your prescriptions filled? n/a Do you understand how to take your medications as ordered? yes Do you have any questions about your follow up appointment and do you plan to keep your follow up appointment? No. Has a follow up appointment with Dr. Ireland 07/31/2023 Is there anything else that you would like to discuss? no Questions/Comments/Concerns/Other:
== END 2023-07-24 17:45 | disposition home or self-care (01) ==
LOC: ER 16:13 → MS 17:01
PROVIDERS: Admitting Provider Family Medicine; Emergency Provider Emergency Medicine; PCP Family Medicine; Visit Provider Internal Medicine
DX: K56.51 Intestinal adhesions [bands], with partial obstruction (principal); R10.9 Unspecified abdominal pain; I10 Essential (primary) hypertension; E11.610 Type 2 diabetes mellitus with diabetic neuropathic arthropathy; K21.9 Gastro-esophageal reflux disease without esophagitis; N40.0 Benign prostatic hyperplasia without lower urinary tract symptoms; Z79.899 Other long term (current) drug therapy; Z90.49 Acquired absence of other specified parts of digestive tract; Z95.1 Presence of aortocoronary bypass graft; Z79.84 Long term (current) use of oral hypoglycemic drugs; Z79.4 Long term (current) use of insulin
CPT/HCPCS: 36415; 74177; 74250; 80048; 80053; 80076; 81001; 82150; 82948; 83690; 83735; 85025; 93005; 96372; 96374; 96375; 96376; 97165; 99285; G0378; Q9963; Q9967

== ENCOUNTER 2023-12-08 03:10 | Inpatient (IN) | payer MEDICARE, SELFPAY ==
[2023-12-08] VITALS (13 sets, daily range): BP systolic 131–202; BP diastolic 69–100; PULSE 69–77; TEMP 36.3–36.6; O2SAT 91–96; BMI 25.1; BMI 24.9
--- NOTE | 2023-12-08 03:19 | CT_ITS ---
The [address] [address] Patient Name: ELSA RUTHERFORD MRN: [id number] date: 1955 Sex: M Assigned Patient Location: ER Current Patient Location: ER Accession/Order Number: [id number] Exam Date: 12/08/2023 04:25 Report Date: 12/08/2023 05:09 At the request of: NIGEL DIAZ Procedure: CT abdomen pelvis w con CT OF THE ABDOMEN AND PELVIS WITH CONTRAST: 12/08/2023 4:25 AM EDT CLINICAL HISTORY: Lower abdominal pain. History of previous bowel obstruction. COMPARISONS: CT abdomen and pelvis with contrast 07/23/2023 TECHNIQUE: Thin section axial CT images were obtained from the lung bases to the pubis symphysis. This CT exam was performed using one or more of the following dose reduction techniques: Automated exposure control, adjustment of the mA and/or kV according to patient size, or use of iterative reconstruction technique. Thin section coronal and sagittal images were reconstructed from the axial data set. All images were reviewed and interpreted. CONTRAST: 100 mL Omnipaque 300 IV. FINDINGS: LUNG BASES: Dependent bibasilar atelectasis greater on the left. Cardiac chambers are normal in size. Mitral and aortic valvular calcifications are suggested. No basilar pleural fluid. Normal GE junction. Gastric fluid otherwise normal stomach. LIVER: A simple inferior right hepatic lobe cyst measures almost 1.5 cm x 1.4 cm. Mean attenuation values less than 4 Hounsfield units postcontrast consistent with a simple cyst. No other liver lesion. Moderate to severe diffuse hepatic steatosis. Normal portal vein enhancement. GALLBLADDER: Not visualized. Presumed surgically absent. Correlate with history. BILIARY TREE: No ductal dilatation. PANCREAS: Head and uncinate process of pancreas are visualized. No duct dilation and region. The body and tail are either atrophied or absent. There is some linear stranding along the ventral margin of the SMV. SPLEEN: Normal appearance of the spleen. No splenomegaly, mass or cyst. Trace of stranding and fluid along the inferior margin. There is some prominent veins at the hilum. Gastrosplenic varices suggested. ADRENALS: Normal. KIDNEYS: Stable nonobstructing calculi in mid pole calyx right kidney, too noted, larger more lateral measures 6 mm more medial 4 mm. Stable simple cortical cyst right kidney less than 1 cm. Stable large right lower pole nonobstructing calculus measuring 7 mm. No right hydronephrosis or ureteral calculus. There is a persistent mildly complex cyst with overlying cortical scarring at lower pole left kidney. Unchanged from 07/23/2023 measuring 2.1 cm. There are some tiny scattered cortical cysts at upper pole unchanged. Punctate calculus anterior mid upper pole calyx left kidney measuring 1 mm. URINARY BLADDER: Grossly unremarkable. PELVIC STRUCTURES: Unremarkable. BOWEL: Stomach is distended with fluid and debris. Changes of prior right hemicolectomy with ileocolic anastomosis in the right upper quadrant. There is recurrent at least partial if not early complete small bowel obstruction multiple dilated air-fluid filled loops of small bowel throughout the abdomen centrally and extending into the pelvis. More prominent distention of the bowel loops in the right upper quadrant. There is some stranding along the mesentery with mesenteric inflammation and vascular engorgement in this area. Trace fluid along the right paracolic gutter. Exact cause of obstruction and clear obstruction not clearly identified with suspected seizure related given extensive postoperative changes in the right upper quadrant. It appears to be somewhere in the region of the anastomosis where the bowel loops coalesce and are matted together. There is some fecalization of small bowel loops in the right lower quadrant consistent with suspected complete obstruction. Distal large bowel loops are decompressed and unremarkable other than some scattered diverticulosis. No acute colitis. APPENDIX: Surgically absent resected along with right hemicolectomy. LYMPH NODES: No pathologically enlarged lymph nodes identified. PERITONEUM: No intraperitoneal free air. No free intraperitoneal fluid. MESENTERY: Unremarkable. RETROPERITONEUM: The retroperitoneum is unremarkable. AORTA: Normal aorta and iliac arteries. Scattered atherosclerotic calcific plaque throughout the wall of the aorta. BODY WALL: No body wall mass. OSSEOUS STRUCTURES: No destructive osseous lesion or displaced fracture. CT/CT abdomen pelvis w con IMPRESSION: 1. Recurrent small bowel obstruction presumably from adhesions right upper quadrant with multiple dilated air and fluid-filled small bowel loops throughout the mid and right lower quadrant of abdomen. Maximum dilation of bowel at the right lower quadrant. Recommend NG tube placement and surgical consult and follow-up. Gastric distention with debris. 2. Changes of previous right hemicolectomy and ileocolic anastomosis the right upper quadrant. 3. Stable nonobstructing calculi right kidney with stable scattered cysts. 4. Complex cyst in the lower pole left kidney with overlying cortical scarring again noted. Scattered punctate nonobstructing left renal calculi. No hydronephrosis. Electronically authenticated by: ALENA TALBERT Date: 12/08/2023 05:09
--- NOTE | 2023-12-08 03:19 | ED.ABDPAIN1 ---
HPI - Abdominal Pain General Chief Complaint: Abdominal Pain Stated Complaint: Nausea Time Seen by Provider: 12/08/23 03:16 History of Present Illness HPI narrative: 68-year-old male presents for abdominal pain. It is across the mid abdomen and he thinks he might have a bowel obstruction, he has had them previously. No fever. He has not been vomiting or having diarrhea. The pain is moderate and continuous. Related Data Home Medications ?Medication ?Instructions ?Recorded ?Confirmed atorvastatin 10 mg tablet (Lipitor) 10 mg PO QPM 07/23/23 12/08/23 ferrous sulfate 325 mg (65 mg 325 mg PO DAILY 07/23/23 12/08/23 iron) tablet (FeroSul) gabapentin 300 mg capsule 300 mg PO Q12H 07/23/23 12/08/23 insulin degludec 200 unit/mL (3 40 unit subcut DAILY 07/23/23 12/08/23 mL) subcutaneous pen (Tresiba FlexTouch U-200 insulin) isosorbide mononitrate 60 mg 60 mg PO DAILY 07/23/23 12/08/23 tablet,extended release 24 hr metformin 1,000 mg tablet 1,000 mg PO BID 07/23/23 12/08/23 metoprolol succinate 25 mg 25 mg PO DAILY 07/23/23 12/08/23 tablet,extended release 24 hr pantoprazole 20 mg tablet,delayed 20 mg PO Q12H 07/23/23 12/08/23 release polyethylene glycol 3350 17 gram 17 g PO DAILY 07/23/23 12/08/23 oral powder packet (Miralax) ranolazine 500 mg tablet,extended 500 mg PO Q12H 07/23/23 12/08/23 release,12 hr sitagliptin phosphate 100 mg 100 mg PO DAILY 07/23/23 12/08/23 tablet (Januvia) sucralfate 1 gram tablet (Carafate) 1 g PO ACHS 07/23/23 12/08/23 tamsulosin 0.4 mg capsule 0.4 mg PO Q24H 07/23/23 12/08/23 venlafaxine 150 mg 150 mg PO DAILY 07/23/23 12/08/23 capsule,extended release 24 hr losartan 50 mg tablet mg 12/08/23 naproxen 500 mg tablet mg 12/08/23 Allergies Allergy/AdvReac Type Severity Reaction Status Date / Time dronabinol [From Marinol] Allergy Severe Hallucinati Verified 12/08/23 03:29 ng hydromorphone [From Dilaudid] AdvReac Unknown Anaphylaxis Verified 12/08/23 03:29 Review of Systems ROS Narrative A ten point review of systems is negative except as noted above. [facility] Medical History (Updated 12/08/23 @ 05:27 by Franklin Madera MD) BPH (benign prostatic hyperplasia) ?N40.0 - Benign prostatic hyperplasia without lower urinary tract symptoms (ICD-10) GERD (gastroesophageal reflux disease) ?K21.9 - Gastro-esophageal reflux disease without esophagitis (ICD-10) Diabetic neuropathic arthropathy ?E11.610 - Type 2 diabetes mellitus with diabetic neuropathic arthropathy (ICD-10) Type 2 diabetes mellitus ?E11.9 - Type 2 diabetes mellitus without complications (ICD-10) Hypertension ?I10 - Essential (primary) hypertension (ICD-10) Surgical History H/O heart bypass surgery ?Z95.1 - Presence of aortocoronary bypass graft (ICD-10) History of bowel resection ?Z90.49 - Acquired absence of other specified parts of digestive tract (ICD-10) Hx of cholecystectomy ?Z90.49 - Acquired absence of other specified parts of digestive tract (ICD-10) Family History Father Family history of CHF (congestive heart failure) Family history of COPD (chronic obstructive pulmonary disease) Family history of cancer Family history of hypertension Grandfather Family history of diabetes mellitus Family history of myocardial infarction Mother Family history of hypertension Family history of stroke Social History Within the past year, how often did you have a drink containing alcohol: 4 or more times a week Within the past year, how many standard drinks containing alcohol did you have on a typical day: 1 or 2 Within the past year, how often did you have six or more drinks on one occasion: never Total score: 0 Score interpretation: Questions 2 and 3 are 0. It can be assumed that the patient's drinking is below the recommended limits. However, please confirm the accuracy of the patient's alcohol intake over the last few months. 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 Known occupational exposures/hazards: No Highest level of school completed/degree received: high school graduate Do you want help with school or training: No Are you now , , , , never or living with a partner: In a typical week, how many times do you talk on the telephone with family, friends, or neighbors: 3 or more times per week How often do you get together with friends or relatives: 3 or more times per week How often do you attend bahai or congregation services: never Do you belong to any clubs or organizations such as bahai groups unions, fraternal or athletic groups, or school groups: no Total score: 2 Score interpretation: A score of greater than or equal to 2 indicates the lowest level of social isolation. Little interest or pleasure in doing things: not at all Feeling down, depressed, or hopeless: not at all Feel stressed/tense/nervous/anxious/difficulty sleeping: not at all Due to disability, difficulty making decisions: No Do you think of yourself as: straight/heterosexual Gender Identity: male Exam Narrative Exam Narrative: Nurses note and vital signs reviewed and patient is not hypoxic. General: The patient appears well and in no apparent distress. Patient is resting comfortably on cart. Skin: Warm, dry, no pallor noted. There is no rash noted. Head: Normocephalic, atraumatic Eye: Normal conjunctiva, no drainage Ears, Nose, Mouth, and Throat: oral mucosa is moist. Nares patent. Cardiovascular: Regular Rate and Rhythm Respiratory: Patient is in no distress, no accessory muscle use, lungs are clear to auscultation, no wheezing, rales or rhonchi Back: non-tender GI: Bowel sounds are increased, she has some mild tenderness but no distention. Remote vertical midline scar present, well-healed Musculoskeletal: The patient has no evidence of calf tenderness, no pitting edema, symmetrical pulses noted bilaterally Neurological: A&O, normal speech Psychiatric: Cooperative Constitutional Vital Signs, click to edit/add: Last Vital Signs Temp 97.6 F 12/08/23 03:15 Pulse 69 12/08/23 03:15 Resp 17 12/08/23 03:15 BP 169/97 H 12/08/23 03:15 Pulse Ox 96 12/08/23 03:54 O2 Del Method Room Air 12/08/23 03:54 Course Vital Signs Vital signs: Vital Signs Temperature 97.6 F 12/08/23 03:15 Pulse Rate 69 12/08/23 03:15 Respiratory Rate 17 12/08/23 03:15 Blood Pressure 169/97 H 12/08/23 03:15 Pulse Oximetry 96 12/08/23 03:15 Oxygen Delivery Method Room Air 12/08/23 03:15 Temperature 97.6 F 12/08/23 03:15 Pulse Rate 69 12/08/23 03:15 Respiratory Rate 17 12/08/23 03:15 Blood Pressure 169/97 H 12/08/23 03:15 Pulse Oximetry 96 12/08/23 03:54 Oxygen Delivery Method Room Air 12/08/23 03:54 MDM - Abdominal Pain MDM Narrative Medical decision making narrative: Small bowel obstruction identified on the CAT scan. NG tube ordered and he is being admitted. Findings were discussed with the patient. Differential Diagnosis Differential diagnosis: Likely abdominal pain, constipation, diverticulitis, gastroenteritis, pancreatitis and small bowel obstruction Lab Data Attestation: I reviewed the patient's lab results. Labs: Lab Results 12/08/23 Range/Units 03:40 WBC 6.5 (4.0-11.0) 10^3/uL RBC 4.64 L (4.70-6.10) 10^6/uL Hgb 13.1 L (14.0-18.0) g/dL Hct 39.4 L (42.0-54.0) % MCV 84.9 (80.0-94.0) fL MCH 28.2 (25.9-34.0) pg MCHC 33.2 (29.9-35.2) g/dL RDW 13.0 (11.0-15.0) % Plt Count 114 L (150-450) 10^3/uL MPV 10.4 (9.5-13.5) fL Neut % (Auto) 79.6 H (43.0-75.0) % Lymph % (Auto) 10.3 L (20.5-60.0) % [place] % (Auto) 6.8 (1.7-12.0) % Eos % (Auto) 2.5 (0.9-7.0) % Baso % (Auto) 0.3 (0.2-2.0) % Neut # (Auto) 5.2 (1.4-6.5) 10^3/uL Lymph # (Auto) 0.7 L (1.2-3.8) 10^3/uL [place] # (Auto) 0.4 (0.3-0.8) 10^3/uL Eos # (Auto) 0.2 (0.0-0.7) 10^3/uL Baso # (Auto) 0.0 (0.0-0.1) 10^3/uL Abs Immat Gran (auto) 0.03 (0.00-0.03) 10^3/uL Imm/Tot Granulo (auto) 0.5 (0.0-0.5) % Sodium 136 (136-145) mmol/L Potassium 4.0 (3.5-5.1) mmol/L Chloride 99 (98-107) mmol/L Carbon Dioxide 29.1 (21.0-32.0) mmol/L Anion Gap 11.9 BUN 12.0 (7.0-18.0) mg/dL Creatinine 0.98 (0.70-1.30) mg/dL Est GFR ( Amer) >60 (>=60) Est GFR (Non-Af Amer) >60 (>=60) BUN/Creatinine Ratio 12.2 Glucose 268 H (74-106) mg/dL Calcium 9.0 (8.5-10.1) mg/dL Total Bilirubin 0.6 (0.2-1.0) mg/dL Direct Bilirubin 0.2 (0.0-0.2) mg/dL AST 15 (15-37) U/L ALT 22 (16-63) U/L Alkaline Phosphatase 61 (46-116) U/L Total Protein 6.6 (6.4-8.2) g/dL Albumin 3.7 (3.4-5.0) g/dL Globulin 2.9 g/dL Albumin/Globulin Ratio 1.3 Amylase 36 (25-115) U/L Lipase 72.0 (16.0-77.0) U/L Imaging Data CT scan - abdomen: Radiologist's impression: ITS Impressions Abdomen/Pelvis CT 12/08/23 03:19 IMPRESSION: 1. Recurrent small bowel obstruction presumably from adhesions right upper quadrant with multiple dilated air and fluid-filled small bowel loops throughout the mid and right lower quadrant of abdomen. Maximum dilation of bowel at the right lower quadrant. Recommend NG tube placement and surgical consult and follow-up. Gastric distention with debris. 2. Changes of previous right hemicolectomy and ileocolic anastomosis the right upper quadrant. 3. Stable nonobstructing calculi right kidney with stable scattered cysts. 4. Complex cyst in the lower pole left kidney with overlying cortical scarring again noted. Scattered punctate nonobstructing left renal calculi. No hydronephrosis. Electronically authenticated by: ALENA TALBERT Date: 12/08/2023 05:09 Discharge Plan Discharge Chief Complaint: Abdominal Pain Clinical Impression: Small bowel obstruction Patient Disposition: Admitted As Inpatient Time of Disposition Decision: 05:27 Condition: Good
--- OUTSIDE RECORDS SUMMARY | 2023-12-08 03:23 | XMS_ITS | CCD ---
Author Organization [facility] Care Team Providers Care Administrative Secretary Name Role Phone COOPERRIDER II, JATIN H Unavailable Unavailabl e COOPERRIDER II, JATIN H Unavailable Unavailguzman e Nikunj Mari Unavailable Unavailable Unavailable PERICO ADAM Admitting Unavailable PERICO ADAM Attending Unavailable NIKUNJ MAIR Referring Unavailable KAMALJIT, NIKUNJ Primary Care Unavailable PERICO ADAM Admitting Unavailable PERICO ADAM Attending Unavailable NIKUNJ MARI Referring Unavailable NIKUNJ MARI Primary Care Unavailable ESE KELLER Admitting Unavailable NIKUNJ MARI Primary Care Unavailable SELF, REFERRED Referring Unavailable ASHLEE ARMIJO Attending Unavailable NEHEMIAS LINCOLN Admitting Unavailable KAMALJIT, NIKUNJ Primary Care Unavailable VINCENT DIAZ Referring Unavailable LAZARO PICKARD Attending Unavailable LAZARO PICKARD Attending Unavailable LAZARO PICKARD Admitting Unavailable LAZARO PICKARD Referring Unavailable KOURTNEY ., DR MILLAN Consulting Unavailable KAMALJIT, DR NIKUNJ Fuentes Attending Unavailable KAMALJIT, DR NIKUNJ Fuentes Primary Care Unavailable KAMALJIT, DR NIKUNJ Fuentes Admitting Unavailable KAMALJIT, DR NIKUNJ Fuentes Consulting Unavailable GRECHNY ., JUAN MIGUEL MOCK Consulting Unavailguzman e RYLAN YADAV Consulting Unavailable MARY RODRIGUEZ Consulting Unavailable GRISEL LOU Consulting Unavailable MARTA COLEMAN Consulting Unavailable TAMLYArnold .NATO Consulting Unavailable SHAIKH Lincoln ROMAN Attending Unavailable SHAIKH Lincoln ROMAN Admitting Unavailable AMY, DR SHAUNA Avalos Consulting Unavailable KAMALJIT, DR NIKUNJ Fuentes Primary Care Unavailable MARKER ., DR NAIDU Consulting Unavailable NILL .DR LOZANO Consulting Unavailable SHAIKH Lincoln ROMAN Consulting Unavailable CRISTAL MI Consulting Unavailable CHANO ALFARO Consulting Unavailab MONTY Canchola Consulting Unavailable MELISSA ., ROBBY Consulting Unavailable CLARIBEL, LYLY Consulting Unavailable CONSTANTINO HILL Consulting Unavailable RASTESE, JESSE Consulting Unavailable KAMALJIT, DR NIKUNJ Fuentes Primary Care Unavailable TAIWO, DR DESTINY Doyle Attending Unavailguzman MARAVILLA, DR DESTINY Doyle Consulting Unavailguzman MARAVILLA, DR DESTINY Doyle Admitting UnavailMARY Ng Consulting Unavailable Marta ZULUAGA Attending Unavailable Nikunj Mari MD Primary Care Provider NISH POLLACK Attending Unavailable Nikunj Mari MD Primary Care Provider LEO CHAVARRIA Attending Unavailable NIKUNJ MARI Primary Care UnavailFred Nettles Attending Unavailable Fred Chao Admitting Unavailable Nikunj Mari Primary Care Unavailable Allergies Allergy Classification Reported Allergen(s) Allergy Type Date of Onset Reaction(s) Facility (2 sources) HYDROmorphone; Translations: [HYDROMORPHONE (BULK)] Drug Allergy 06-19-20 17 [facility] Repository (7 sources) tetrahydrocannabi nol; Translations: [DRONABINOL] Drug Allergy 08-27-20 14 Hallucinations , Unknown [facility] Repository (6 sources) dronabinol; Translations: [Marinol] Drug Allergy [facility] [address] DO Work Phone: (9 sources) HYDROmorphone; Translations: [Dilaudid] Drug Allergy 06-19-20 17 Anaphylaxis, Unknown [facility] DO Work Phone: (2 sources) dronabinol Drug Allergy 10-04-19 14 [facility] Repository (3 sources) HYDROmorphone; Translations: [HYDROMORPHONE] Drug Allergy 12-21-19 16 [facility] Rep[facility] (1 source) HYDROmorphone Drug Allergy 12-28-19 16 [facility] Repository (2 sources) Angiotensin-conve rting enzyme inhibitor agent; Translations: [JACKI INHIBITORS] Drug Intolerance 11-06-19 24 [facility] Work Phone: (1 source) HYDROmorphone Drug Allergy 11-18-19 [facility] Repository Medications Current Medications Medication Drug Class(es) Dates Sig (Normalized) Sig (Original) ascorbic acid 500 mg oral tablet (8 sources) Vitamin C take 1 tablet by mouth once daily ascorbic acid (Vitamin C) 500 mg tablet Take 1 tablet (500 mg) by mouth once daily. 0 Active aspirin 81 mg delayed release oral tablet (7 sources) Platelet Aggregation Inhibitor, Nonsteroidal Anti-inflammatory Drug take 1 tablet by mouth once daily aspirin 81 mg EC tablet Take 1 tablet (81 mg) by mouth once daily. 0 Active atorvastatin 10 mg oral tablet (9 sources) HMG-CoA Reductase Inhibitor Start: 08-08-2023 atorvastatin (Lipitor) 10 MG tablet Indications: Dyslipidemia (CMS/HCC) TAKE 1 TABLET AT BEDTIME 90 tablet 3 08/08/2023 Active cholecalciferol 0.05 mg oral tablet (7 sources) Vitamin D Start: 01-20-2023 take 1 tablet by mouth once daily Vitamin D3 50 mcg (2,000 unit) tablet Take 1 tablet (2,000 Units) by mouth once daily. 0 01/20/2023 Active take 1 tablet by mouth once miller y Vitamin D3 50 MCG (2000 UT) Oral Tablet Take 1 tablet daily Quantity: 0 Refills: 0 Ordered: 11-Oct-2021 DO Active docosahexaenoic acid 120 mg / eicosapentaenoic acid 180 mg oral capsule (2 sources) take 1 capsule by mouth twice daily omega-3 (Fish Oil) 1000 MG capsule omega-3 acid ethyl esters 1 gram capsule TAKE 1 CAPSULE BY MOUTH TWICE A DAY 0 Active ferrous sulfate 325 mg oral tablet (9 sources) End: take 1 tablet by mouth once daily ferrous sulfate, 325 mg ferrous sulfate, tablet Take 1 tablet by mouth once daily. 0 Active folic acid 0.4 mg oral tablet (7 sources) take 1 tablet by mouth once daily folic acid (Folvite) 400 mcg tablet Take 1 tablet (0.4 mg) by mouth once daily. 0 Active gabapentin 300 mg oral capsule (9 sources) Anti-epileptic Agent take 1 capsule by mouth twice daily gabapentin (Neurontin) 300 mg capsule Take 1 capsule (300 mg) by mouth 2 times a day. 0 Active insulin degludec 100 unt/ml injectable solution (7 sources) Insulin Analog insulin degludec (Tresiba U-100 Insulin) 100 unit/mL injection Inject under the skin. As directed. 0 Active Tresiba 100 UNIT /ML Subcutaneous Solution as directed Quantity: 0 Refills: 0 Ordered: 11-Oct-2021 DO Active 24 hr isosorbide mononitrate 60 mg extended release oral tablet (8 sources) Nitrate Vasodilator Start: 11-05-2023 take 1 tablet by mouth once daily isosorbide mononitrate ER (Imdur) 60 mg 24 hr tablet Indications: Atherosclerosis of coronary artery bypass graft(s) without angina pectoris TAKE 1 TABLET BY MOUTH EVERY DAY 90 tablet 3 11/05/2023 Active Start: 11-09-2021 take 1 tablet by edil th once daily Isosorbide Mononitrate ER 60 MG Oral Tablet Extended Release 24 Hour TAKE 1 TABLET BY MOUTH EVERY DAY Quantity: 90 Refills: 3 Ordered: 27-Aug-2022 Laura Ferrer Start : 09-Nov-2021 Active Start: 10-11-2021 take 1 tablet by edil th once daily Isosorbide Mononitrate ER 30 MG Oral Tablet Extended Release 24 Hour TAKE 1 TABLET DAILY DIRECTED. Quantity: 30 Refills: 6 Ordered: 11-Oct-2021 Laura Ferrer Start : 11-Oct-2021 Active lisinopril 5 mg oral tablet (9 sources) Angiotensin Converting Enzyme Inhibitor Start: 10-07-2023 End: 11-06-2023 lisinopril 5 MG tablet Indications: Benign essential hypertension (CMS/HCC) TAKE 1 TABLET DAILY 90 tablet 3 10/07/2023 Active losartan potassium 50 mg oral tablet (4 sources) Angiotensin 2 Receptor Michael Start: 11-06-2023 take 1 tablet by mouth once daily losartan (Cozaar) 50 mg tablet Indications: Essential hypertension Take 1 tablet (50 mg) by mouth once daily. 90 tablet 3 11/06/2023 Active Start: 08-21-2023 End: 11-06-2023 take 1 tablet by mouth in the morning losartan (Cozaar) 25 MG tablet Indications: Benign essential hypertension (CMS/HCC) Take 1 tablet (25 mg) by mouth in the morning. 90 tablet 3 08/21/2023 Active magnesium oxide 400 mg oral capsule (7 sources) take 1 capsule by mouth once daily magnesium oxide 400 mg magnesium capsule Take 1 capsule (400 mg) by mouth once daily. 0 Active meclizine hydrochloride 12.5 mg oral tablet (7 sources) Antiemetic take 1 tablet by mouth three times daily as needed meclizine (Antivert) 12.5 mg tablet Take 1 tablet (12.5 mg) by mouth 3 times a day as needed. 0 Active metFORMIN hydrochloride 1000 mg oral tablet (9 sources) Biguanide Start: 08-08-2023 metFORMIN (Glucophage) 1000 MG tablet Indications: Type 2 diabetes mellitus without complication, with long-term current use of insulin ([facility]) TAKE 1 TABLET TWICE A DAY 180 tablet 3 08/08/2023 Active take 1 tablet by edil th every twelve hours metFORMIN (Glucophage) 1,000 mg tablet T kamlesh 1 tablet (1,000 mg) by mouth every 12 hours. 0 Active take 1 tablet by mouth once miller y metFORMIN HCl - 1000 MG Oral Tablet TAKE 1 TABLET EVERY 12 HOURS DAILY. Quantity: 0 Refills: 0 Ordered: 11-Oct-2021 DO Active 24 hr metoprolol succinate 25 mg extended release oral tablet (7 sources) beta-Adrenergic Michael take 1 tablet by mouth once daily Toprol XL 25 mg 24 hr tablet Take 1 tablet (25 mg) by mouth once daily. 0 Active multivit-min/ferrous fumarate (MULTI VITAMIN ORAL) (1 source) take 1 tablet by mouth once daily multivit-min/ferrous fumarate (MULTI VITAMIN ORAL) Take 1 tablet by mouth once daily. 0 Active nitroglycerin 0.4 mg sublingual tablet (7 sources) Nitrate Vasodilator Start: 10-11-19 nitroglycerin (Nitrostat) 0.[address] 1 tablet (0.4 mg) under the tongue every 5 minutes if needed for chest pain (Report to the ER or call 911 after third dose.). 0 10/11/2021 Active omega-3 fatty acids-fish oil (One-Per-Day Naoma-3) 684-1,200 mg capsule (1 source) omega-3 fatty acids-fish oil (One-Per-Day Naoma-3) 684-1,200 mg capsule Take 1 capsule (1,200 mg) by mouth 2 times a day. 0 Active pantoprazole 20 mg delayed release oral tablet (9 sources) Proton Pump Inhibitor take 1 tablet by mouth twice daily pantoprazole (ProtoNix) 20 mg EC tablet Take 1 tablet (20 mg) by mouth 2 times a day. 0 Active take 2 tablets by mouth once dannielle ly pantoprazole (ProtoNix) 20 MG EC tablet pantoprazole 20 mg tablet,delayed release Take 2 tablets by mouth daily 0 Active 12 hr ranolazine 500 mg extended release oral tablet (9 sources) Anti-anginal take 1 tablet by mouth every twelve hours Ranexa 500 mg 12 hr tablet Take 1 tablet (500 mg) by mouth every 12 hours. 0 Active SITagliptin 100 mg oral tablet (9 sources) Dipeptidyl Peptidase 4 Inhibitor take 1 tablet by mouth once daily Januvia 100 mg tablet Take 1 tablet (100 mg) by mouth once daily. 0 Active sucralfate 1000 mg oral tablet (9 sources) Aluminum Complex take 1 tablet by mouth every twelve hours sucralfate (Carafate) 1 gram tablet Take 1 tablet (1 g) by mouth every 12 hours. 0 Active take 1 tablet by mouth four time s daily sucralfate (Carafate) 1 g tablet sucralfate 1 gram tablet TAKE 1 TABLET BY MOUTH FOUR TIMES A DAY 0 Active take 1 tablet by mouth once miller y Sucralfate 1 GM Oral Tablet TAKE 1 TABLET EVERY 12 HOURS DAILY. Quantity: 0 Refills: 0 Ordered: 11-Oct-2021 DO Active tamsulosin hydrochloride 0.4 mg oral capsule (9 sources) alpha-Adrenergic Michael Start: 08-16-2023 tamsu losin (Flomax) 0.4 MG 24 hr capsule Indications: BPH without urinary obstruction TAKE 1 CAPSULE DAILY 90 capsule 3 08/16/2023 Active 24 hr venlafaxine 75 mg extended release oral capsule (11 sources) Serotonin and Norepinephrine Reuptake Inhibitor Start: 09-10-2023 venlafaxine XR (Effexor XR) 75 MG 24 hr capsule Indications: Mild recurrent major depression (HCC) (CMS/HCC) TAKE 1 CAPSULE DAILY 90 capsule 3 09/10/2023 Active Start: 08-16-2023 venlafaxine XR (Effexor XR) 150 MG 24 hr capsule Indications: Mild recurrent major depression (HCC) (CMS/HCC) TAKE 1 CAPSULE DAILY 90 capsule 3 08/16/2023 Active vit A/vit C/vit E/zinc/coppe r (PRESERVISION AREDS ORAL) (1 source) take 1 tablet by edil th once daily at bedtime vit A/vit C/vit E/zinc/copper (PRESERVISION AREDS ORAL) Take 1 tablet by mouth once daily at bedtime. 0 Active Completed/Discontinued Medications Medication Drug Class(es) Dates Sig (Normalized) Sig (Original) Multi Vitamin Oral Tablet (6 sources) take 1 tablet by edil th once daily Multi Vitamin Oral Tablet TAKE 1 TABLET DAILY. Quantity: 0 Refills: 0 Ordered: 11-Oct-2021 DO Active Naoma 3 CAPS (6 sources) Naoma 3 CAPS Maxwell e 1 capsule twice daily Quantity: 0 Refills: 0 Ordered: 11-Oct-2021 DO Active Vitamin B Complex TABS (6 sources) Vitamin B Comple x TABS TAKE 1 TABLET DAILY. Quantity: 0 Refills: 0 Ordered: 11-Oct-2021 DO Active Problems Active Problems Problem Classification Problem Date Documented Da te Episodic/Chronic Abdominal pain (3 sources) Unspecified abdominal pain; Translations: [UNSPECIFIED ABDOMINAL PAIN] Onset: 3 Episodic Calculus of urinary tract (2 sources) Calculus of kidney; Translations: [Personal history of urinary calculi] Onset: 3 Episodic Cardiac dysrhythmias (1 source) Unspecified atrial fibrillation; Translations: [UNSPECIFIED ATRIAL FIBRILLATION] Onset: 3 Chronic Complication of device; implant or graft (10 sources) Arteriosclerosis of coronary artery bypass graft; Translations: [Coronary atherosclerosis of unspecified bypass graft] Onset: 4 11-06-2023 Chronic Coronary atherosclerosis and other heart disease (2 sources) Atherosclerotic heart disease of tangirnaq coronary artery without angina pectoris; Translations: [Old myocardial infarction] Onset: 3 Chronic Coronary atherosclerosis and other heart disease (5 sources) Presence of aortocoronary bypass graft; Translations: [Coronary angioplasty status] Onset: 3 Episodic Deficiency and other anemia (1 source) Other pancytopenia; Translations: [OTHER PANCYTOPENIA] Onset: 3 Chronic Deficiency and other anemia (7 sources) Anemia; Translations: [Anemia, unspecified] Onset: 4 11-04-2023 Episodic Deficiency and other anemia (1 source) Iron deficiency anemia, unspecified; Translations: [IRON DEFICIENCY ANEMIA UNSPECIFIED] Onset: 3 Episodic Diabetes mellitus with complications (1 source) Type 2 diabetes mellitus with diabetic neuropathy, unspecified; Translations: [TYPE 2 DM W/DIABETIC NEUROPATHY UNS] Onset: 3 Chronic Diabetes mellitus without complication (11 sources) Diabetes mellitus; Translations: [Diabetes mellitus without mention of complication, type II or unspecified type, not stated as uncontrolled] Onset: 3 11-06-2023 Chronic Disorders of lipid metabolism (12 sources) Hyperlipidemia; Translations: [Other and unspecified hyperlipidemia] Onset: 3 11-06-2023 Chronic Esophageal disorders (8 sources) Gastroesophageal reflux disease; Translations: [Esophageal reflux] Onset: 3 11-04-2023 Chronic Essential hypertension (13 sources) Essential hypertension; Translations: [Unspecified essential hypertension] Onset: 3 08-21-2023 Chronic Gastrointestinal hemorrhage (7 sources) Gastrointestinal hemorrhage; Translations: [Hemorrhage of gastrointestinal tract, unspecified] Onset: 4 11-04-2023 Episodic Heart valve disorders (13 sources) Aortic valve stenosis; Translations: [Aortic valve disorders] Onset: 4 11-04-2023 Chronic Hyperplasia of prostate (2 sources) Benign prostatic hypertrophy without outflow obstruction; Translations: [Benign prostatic hyperplasia without lower urinary tract symptoms] Onset: 3 08-16-2023 Chronic Intestinal obstruction without hernia (10 sources) Unspecified intestinal obstruction, unspecified as to partial versus complete obstruction; Translations: [Intestinal adhesions [bands], unspecified as to partial versus complete obstruction] Onset: 2 Episodic Malaise and fatigue (7 sources) Fatigue; Translations: [Other malaise and fatigue] Onset: 4 11-04-2023 Episodic Mood disorders (2 sources) Recurrent major depressive episodes, mild ; Translations: [Major depressive disorder, recurrent, mild] Onset: 3 08-16-2023 Chronic Mood disorders (1 source) Mood disorders; Translations: [DEPRESSION UNSPECIFIED] Onset: 3 Other aftercare (1 source) retirement (current) use of aspirin; Translations: [FCI 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 ASPIRIN] Onset: 3 Episodic Other aftercare (1 source) Other chcf (current) drug therapy; Translations: [OTH FCI CURRENT DRUG THERAPY] Onset: 3 Episodic Other aftercare (1 source) retirement (current) use of insulin; 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] Onset: 3 Episodic Other aftercare (1 source) retirement (current) use of oral hypoglycemic drugs; Translations: [ASSET PROTECTION ASSOCIATE USE ORAL HYPOGLYCEMIC DX] Onset: 3 Episodic Other and unspecified benign neoplasm (2 sources) Benign neoplasm of soft tissue; Translations: [Melanocytic nevi, unspecified] 10-21-2023 Episodic Other liver diseases (1 source) Abnormal levels of other serum enzymes; Translations: [ABNORMAL LEVELS OTHER SERUM ENZYMES] Onset: 3 Episodic Other lower respiratory disease (7 sources) Dyspnea on exertion; Translations: [Other respiratory abnormalities] Onset: 4 11-04-2023 Episodic Other nutritional; endocrine; and metabolic disorders (1 source) Hypomagnesemia; Translations: [HYPOMAGNESEMIA] Onset: 3 Chronic Other nutritional; endocrine; and metabolic disorders (5 sources) Body mass index 25-29 - overweight; Translations: [Body Mass Index 26.0-26.9, adult] Episodic Other nutritional; endocrine; and metabolic disorders (6 sources) Overweight; Translations: [Overweight] Episodic Other nutritional; endocrine; and metabolic disorders (9 sources) Overweight in adulthood with body mass index of 25 or more but less than 30; Translations: [Overweight] Onset: 4 11-06-2023 Episodic Other nutritional; endocrine; and metabolic disorders (2 sources) Body mass index (BMI) 25.0-25.9, adult; Translations: [Body mass index (BMI) 25.0-25.9, adult] Onset: 4 Episodic Other screening for suspected conditions (not mental disorders or infectious disease) (16 sources) Echocardiogram abnormal; Translations: [Nonspecific (abnormal) findings on radiological and other examination of other intrathoracic organs] Onset: 4 11-06-2023 Episodic Other skin disorders (2 sources) Seborrheic keratosis; Translations: [Other seborrheic keratosis] 10-21-2023 Episodic Other skin disorders (2 sources) Lentiginosis; Translations: [Other melanin hyperpigmentation] 10-21-2023 Episodic Other skin disorders (2 sources) Actinic keratosis; Translations: [Actinic keratosis] 10-21-2023 Episodic Other skin disorders (2 sources) Inflamed seborrheic keratosis; Translations: [Inflamed seborrheic keratosis] 10-21-2023 Episodic Residual codes; unclassified (1 source) Acquired absence of other specified parts of digestive tract; Translations: [ACQ ABSENCE OTH PART DIGESTV TRACT] Onset: 3 Episodic Unclassified (1 source) ACIDOSIS UNSPECIFIED; Translations: [ACIDOSIS UNSPECIFIED] Onset: 3 Unclassified (1 source) CONTACT W/AND (SUSP) EXPOS COVID-19; Translations: [CONTACT W/AND (SUSP) EXPOS COVID-19] Onset: 3 Unclassified (1 source) Pain in right shoulder; Translations: [Pain in right shoulder] Onset: 4 Viral infection (2 sources) Verruca vulgaris; Translations: [Other viral warts] 10-21-2023 Episodic Past or Other Problems Problem Classification Problem Date Documented Da te Episodic/Chronic Blindness and vision defects (1 source) Hypermetropia, bilateral; Translations: [Hypermetropia, bilateral] Onset: 09-12-2017 Episodic Medical examination/evaluation (1 source) Encounter for general adult medical examination without abnormal findings; Translations: [Encounter for general adult medical examination without abnormal findings] Onset: 06-19-2017 Episodic Unclassified (6 sources) Never smoked tobacco; Translations: [Never a smoker] Unclassified (1 source) Onset: 11-06-2023 11-06-2023 Results Test Name Value Interpretation Reference Range Facility XR shoulder RT min 2V*on XR shoulder RT min 2V* [facility] [place] [address] XRay Report Signed Patient: Elsa Espinoza MR#: [id number] : 1955 Acct:[id number] Age/Sex: 68 / M ADM Date: 11/18/23 Loc: [facility] Room: Type: [facility] Attending Dr: Fred Chao DO Copies to: Fred Chao DO Ordering Provider: Fred Chao DO Date of Service: 11/18/23 XR/XR shoulder RT min 2V*: M25.511 - Pain in right shoulder RIGHT SHOULDER - - 4 views CLINICAL HISTORY: Right anterolateral shoulder pain for one month COMPARISON: None FINDINGS: Minimal degenerative change without acute bony process. XR/XR shoulder RT min 2V* IMPRESSION: MINIMAL DEGENERATIVE CHANGE OF THE RIGHT SHOULDER WITHOUT ACUTE BONY PROCESS. Impression dictated by: Amaury Deshpande Jr., AloOElinor11/18/2023 4:35 PM Dictation Location: [place] [address] Transcribed By: [facility] 11/18/23 163 Dictated By: Amaury Deshpande Jr, DO 11/18/23 163 Signed By: 11/18/23 1635 [facility] No Panel Informationon 10-21 [facility] Consultation Noteon 01-11-20 Consultation Note [id number]:[id number] [facility] CBC AUTO DIFFon 01-05-2023 BASO # 0.0 103/ul Normal 0.0-0.1 [facility] Comment on above: Performed By: #### C VDTBH #### [facility] [address] [place] [address] Dr. Miladys Samuel Basophils/100 WBC (Bld) 0.6 % Normal 0.2-2.0 [facility] Comment on above: Performed By: #### C VDTBH #### [facility] [address] [place] [address] Dr. Miladys Samuel EO # 0.2 103/ul Normal 0.0-0.7 [facility] Comment on above: Performed By: #### C VDTBH #### [facility] [address] [place] [address] Dr. Miladys Samuel Eosinophils/100 WBC (Bld) 4.2 % Normal 0.9-7.0 [facility] Comment on above: Performed By: #### C VDTBH #### [facility] [address] [place] [address] Dr. Miladys Samuel Erythrocyte distribution width (RBC) [Ratio] 13.5 % Normal 11.0-15.0 [facility] Comment on above: Performed By: #### C VDTBH #### [facility] [address] [place] [address] Dr. Miladys Samuel Hematocrit (Bld) [Volume fraction] 40.0 % Critically low 42.0-54.0 [facility] Comment on above: Performed By: #### C VDTBH #### [facility] [address] [place] [address] Dr. Miladys Samuel Hemoglobin (Bld) [Mass/Vol] 12.9 g/dL Critically low 14.0-18.0 [facility] Comment on above: Performed By: #### C VDTBH #### [facility] [address] [place] [address] Dr. Miladys Samuel IG # 0.01 10e3/ul Normal 0.00-0.03 [facility] Comment on above: Performed By: #### C VDTBH #### [facility] [address] [place] [address] Dr. Miladys Samuel IG % 0.3 % Normal 0.0-0.5 [facility] Comment on above: Performed By: #### C VDTBH #### [facility] [address] [place] [address] Dr. Miladys Samuel LYMPH # 0.7 103/ul Critically low 1.2-3.8 [facility] Comment on above: Performed By: #### C VDTBH #### [facility] [address] [place] [address] Dr. Miladys Samuel Lymphocytes/100 WBC (Bld) 19.5 % Critically low 20.5-60.0 [facility] Comment on above: Performed By: #### C VDTBH #### [facility] [address] [place] [address] Dr. Miladys Samuel MANUAL DIFF REQ NO Normal [facility] Comment on above: Performed By: #### C VDTBH #### [facility] [address] [place] [address] Dr. Miladys Samuel MCH (RBC) [Entitic mass] 27.6 pg Normal 25.9-34.0 [facility] Comment on above: Performed By: #### C VDTBH #### [facility] [address] [place] [address] Dr. Miladys Samuel MCHC (RBC) [Mass/Vol] 32.3 g/dL Normal 29.9-35.2 [facility] Comment on above: Performed By: #### C VDTBH #### [facility] [address] [place] [address] Dr. Miladys Samuel MCV (RBC) [Entitic vol] 85.7 fL Normal 80.0-94.0 [facility] Comment on above: Performed By: #### C VDTBH #### [facility] [address] [place] [address] Dr. Miladys Samuel MONO # 0.4 103/ul Normal 0.3-0.8 [facility] Comment on above: Performed By: #### C VDTBH #### [facility] [address] [place] [address] Dr. Miladys Samuel Monocytes/100 WBC (Bld) 10.3 % Normal 1.7-12.0 [facility] Comment on above: Performed By: #### C VDTBH #### [facility] [address] [place] [address] Dr. Miladys Samuel NEUT # 2.3 103/ul Normal 1.4-6.5 [facility] Comment on above: Performed By: #### C VDTBH #### [facility] [address] [place] [address] Dr. Miladys Samuel Neutrophils/100 WBC (Bld) 65.1 % Normal 43.0-75.0 [facility] Comment on above: Performed By: #### C VDTBH #### [facility] [address] [address] [address] Miladys Samuel Platelet mean volume (Bld) [Entitic vol] 10.1 fL Normal 9.5-13.5 [facility] Comment on above: Performed By: #### C VDTBH #### [facility] [address] [address] [address] Miladys Samuel PLT 103 103/ul Critically low 150-450 [facility] Comment on above: Performed By: #### C VDTBH #### [facility] [address] [address] [address] Miladys Samuel RBC 4.67 106/ul Critically low 4.70-6.10 [facility] Comment on above: Performed By: #### C VDTBH #### [facility] [address] [place] [address] Dr. Miladys Samuel WBC 3.6 103/ul Critically low 4.0-11.0 [facility] Comment on above: Performed By: #### C VDTBH #### [facility] [address] [place] [address] Dr. Miladys Samuel GLYCOHEMOGLOBIN A1Con 2022 ADA RECOMMENDATION SEE BELOW Normal [facility] Comment on above: Result Comment: ADA RECOMMENDED LIMIT 4.0 - 6.0 ADA THERAPEUTIC TARGET < 7.0 ACTION SUGGESTED > 7.0 Performed By: #### C VDTBH #### [facility] [address] [address] [address] Miladys Samuel Glucose [Mass/Vol] 194 mg/dL Normal [facility] Comment on above: Performed By: #### C VDTBH #### [facility] [address] [address] [address] Miladys Samuel HbA1c (Bld) [Mass fraction] 8.4 % Critically high 4.5-6.2 [facility] Comment on above: Performed By: #### C VDTBH #### [facility] [address] [address] [address] Miladys Samuel MAGNESIUMon 01-05-2023 Magnesium [Mass/Vol] 1.8 mg/dL Normal 1.8-2.4 [facility] Comment on above: Performed By: #### A MY #### [facility] [address] [place] [address] Dr. Miladys Samuel POINT OF CARE GLUCOSEon 12-09 Glucose [Mass/Vol] 253 mg/dL Critically high 74-106 [facility] Comment on above: Performed By: #### A MY #### [facility] [address] [place] [address] Dr. Miladys Samuel PROF CHEM 8 (BAS METB)on Anion gap [Moles/Vol] 9.1 mmol/L Normal [facility] Comment on above: Performed By: #### A MY #### [facility] [address] [place] [address] Dr. Miladys Samuel Calcium [Mass/Vol] 8.2 mg/dL Critically low 8.5-10.1 [facility] Comment on above: Performed By: #### A MY #### [facility] [address] [place] [address] Dr. Miladys Samuel Chloride [Moles/Vol] 106 mmol/L Normal 98-107 [facility] Comment on above: Performed By: #### A MY #### [facility] [address] [place] [address] Dr. Miladys Samuel CO2 [Moles/Vol] 30.1 mmol/L Normal 21.0-32.0 [facility] Comment on above: Performed By: #### A MY #### [facility] [address] [place] [address] Dr. Miladys Samuel Creatinine [Mass/Vol] 1.00 mg/dL Normal 0.70-1.30 [facility] Comment on above: Performed By: #### A MY #### [facility] [address] [place] [address] Dr. Miladys Samuel EGFR-AF TAIWANESE >60 Normal >=60 [facility] Comment on above: Performed By: #### A MY #### [facility] [address] [place] [address] Dr. Miladys Samuel EGFR-NON AF TAIWANESE >60 Normal >=60 [facility] Comment on above: Performed By: #### A MY #### [facility] [address] [address] [address] Miladys Samuel Glucose [Mass/Vol] 117 mg/dL Critically high 74-106 [facility] Comment on above: Performed By: #### A MY #### [facility] [address] [address] [address] Miladys Samuel Potassium [Moles/Vol] 4.2 mmol/L Normal 3.5-5.1 [facility] Comment on above: Performed By: #### A MY #### [facility] [address] [address] [address] Miladys Samuel Sodium [Moles/Vol] 141 mmol/L Normal 136-145 [facility] Comment on above: Performed By: #### A MY #### [facility] [address] [address] [address] Miladys Samuel Urea nitrogen [Mass/Vol] 9.0 mg/dL Normal 7.0-18.0 [facility] Comment on above: Performed By: #### A MY #### [facility] [address] [address] [address] Miladys Samuel Urea nitrogen/Creatinine [Mass ratio] 9.0 mg/mg Normal [facility] Comment on above: Performed By: #### A MY #### [facility] [address] [address] [address] Miladys Samuel XR ABD FLAT UP_PA Bird 01-05 XR ABD FLAT UP_PA CH EXAM: XR ABD FLAT UP_PA CH 01/05/2023. HISTORY: Abdominal pain. Small bowel obstruction COMPARISON: CT scan abdomen and pelvis 01/03/2023 and small bowel follow-through 01/04/2023. TECHNIQUE: Upright view of the chest and 2 views of the abdomen were obtained. FINDINGS: CHEST: The tip of a nasogastric tube projects in the mid thoracic esophagus. Median sternotomy wires are noted. Elevation of the left hemidiaphragm is again seen. There again appears to be subsegmental atelectasis in the left lung base. The lungs otherwise appear clear. No congestive heart failure or pleural effusion is seen. No pneumothorax. ABDOMEN: There are multiple enterotomy suture row is again seen in the right side of the abdomen. There are multiple renal calculi are again seen bilaterally. There has been interval passage of contrast from the bowel since the prior study. There is a single persistent distended air-filled loop of small bowel in the left side of the mid abdomen measuring partially 3.5 cm in diameter. No other dilated air-filled loops of small bowel are seen. There is air within the transverse colon and the rectosigmoid region. IMPRESSION: 1. There has been interval passage of contrast from the bowel and there is now only a single loop of moderately distended air-filled loop of small bowel in the left side of the mid abdomen compatible with an improving/resolving partial small bowel obstruction. 2. The tip of a nasogastric tube projects in the expected location of the mid thoracic esophagus. This should be advanced approximately 30 cm to position the sidehole of the tube into the body of the stomach if clinically indicated. 3. Persistent mild subsegmental atelectasis and mild elevation of the left hemidiaphragm. Electronically authenticated by: MONTY CHANEL Date: 2023-01-05 07:10 Normal [facility] CBC AUTO DIFFon 01-04-2023 BASO # 0.0 103/ul Normal 0.0-0.1 [facility] Comment on above: Performed By: #### L ACT #### [facility] [address] [place] [address] Dr. Miladys Samuel Basophils/100 WBC (Bld) 0.3 % Normal 0.2-2.0 [facility] Comment on above: Performed By: #### L ACT #### [facility] [address] [address] [address] Miladys Samuel EO # 0.1 103/ul Normal 0.0-0.7 [facility] Comment on above: Performed By: #### L ACT #### [facility] [address] [place] [address] Dr. Miladys Samuel Eosinophils/100 WBC (Bld) 0.9 % Normal 0.9-7.0 [facility] Comment on above: Performed By: #### L ACT #### [facility] [address] [address] [address] Miladys Samuel Erythrocyte distribution width (RBC) [Ratio] 13.7 % Normal 11.0-15.0 [facility] Comment on above: Performed By: #### L ACT #### [facility] [address] [address] [address] Miladys Samuel Hematocrit (Bld) [Volume fraction] 41.2 % Critically low 42.0-54.0 [facility] Comment on above: Performed By: #### L ACT #### [facility] [address] [place] [address] Dr. Miladys Samuel Hemoglobin (Bld) [Mass/Vol] 13.7 g/dL Critically low 14.0-18.0 [facility] Comment on above: Performed By: #### L ACT #### [facility] [address] [place] [address] Dr. Miladys Samuel IG # 0.02 10e3/ul Normal 0.00-0.03 [facility] Comment on above: Performed By: #### L ACT #### [facility] [address] [place] [address] Dr. Miladys Samuel IG % 0.3 % Normal 0.0-0.5 [facility] Comment on above: Performed By: #### L ACT #### [facility] [address] [place] [address] Dr. Miladys Samuel LYMPH # 0.6 103/ul Critically low 1.2-3.8 [facility] Comment on above: Performed By: #### L ACT #### [facility] [address] [place] [address] Dr. Miladys Samuel Lymphocytes/100 WBC (Bld) 9.9 % Critically low 20.5-60.0 [facility] Comment on above: Performed By: #### L ACT #### [facility] [address] [place] [address] Dr. Miladys Samuel MANUAL DIFF REQ NO Normal [facility] Comment on above: Performed By: #### L ACT #### [facility] [address] [place], [place] [id number] Dr. Miladys Samuel MCH (RBC) [Entitic mass] 28.0 pg Normal 25.9-34.0 [facility] Comment on above: Performed By: #### L ACT #### [facility] [address] [place] [address] Dr. Miladys Samuel MCHC (RBC) [Mass/Vol] 33.3 g/dL Normal 29.9-35.2 [facility] Comment on above: Performed By: #### L ACT #### [facility] [address] [place] [address] Dr. Miladys Samuel MCV (RBC) [Entitic vol] 84.1 fL Normal 80.0-94.0 [facility] Comment on above: Performed By: #### L ACT #### [facility] [address] [place] [address] Dr. Miladys Samuel MONO # 0.6 103/ul Normal 0.3-0.8 [facility] Comment on above: Performed By: #### L ACT #### [facility] [address] [place] [address] Dr. Miladys Samuel Monocytes/100 WBC (Bld) 9.3 % Normal 1.7-12.0 [facility] Comment on above: Performed By: #### L ACT #### [facility] [address] [place] [address] Dr. Miladys Samuel NEUT # 5.1 103/ul Normal 1.4-6.5 [facility] Comment on above: Performed By: #### L ACT #### [facility] [address] [place] [address] Dr. Miladys Samuel Neutrophils/100 WBC (Bld) 79.3 % Critically high 43.0-75.0 [facility] Comment on above: Performed By: #### L ACT #### [facility] [address] [place] [address] Dr. Miladys Samuel Platelet mean volume (Bld) [Entitic vol] 9.9 fL Normal 9.5-13.5 [facility] Comment on above: Performed By: #### L ACT #### [facility] [address] [address] [address] Miladys Samuel PLT 126 103/ul Critically low 150-450 [facility] Comment on above: Performed By: #### L ACT #### [facility] [address] [address] [address] Miladys Samuel RBC 4.90 106/ul Normal 4.70-6.10 [facility] Comment on above: Performed By: #### L ACT #### [facility] [address] [address] [address] Miladys Samuel WBC 6.5 103/ul Normal 4.0-11.0 [facility] Comment on above: Performed By: #### L ACT #### [facility] [address] [address] [address] Miladys Samuel MAGNESIUMon 01-04-2023 Magnesium [Mass/Vol] 2.6 mg/dL Critically high 1.8-2.4 [facility] Comment on above: Performed By: #### M OTTONIEL Doyle, PHOS ####[facility] [address] [address]DrElinor Samuel PHOSPHORUSon 01-04-2023 Phosphate [Mass/Vol] 5.5 mg/dL Critically high 2.6-4.7 [facility] Comment on above: Performed By: #### M Yanira BMP, PHOS ####[facility] [address] [address]DrElinor Samuel POINT OF CARE GLUCOSEon 12-09 Glucose [Mass/Vol] 167 mg/dL Critically high 74-106 [facility] Comment on above: Performed By: #### P OCGLUC ####[facility] [address] [address]Dr[address] Miladys Samuel Glucose [Mass/Vol] 118 mg/dL Critically high 74-106 [facility] Comment on above: Performed By: #### P OCGLUC ####[facility] [address] [address]DrElinor Samuel PROF CHEM 8 (BAS METB)on Anion gap [Moles/Vol] 15.7 mmol/L Normal [facility] Comment on above: Performed By: #### OTTONIEL Blanco, PHOS ####[facility] [address] [address]Dr. Miladys Samuel Calcium [Mass/Vol] 8.8 mg/dL Normal 8.5-10.1 [facility] Comment on above: Performed By: #### OTTONIEL Blanco, PHOS ####[facility] [address] [address]Dr. Miladys Samuel Chloride [Moles/Vol] 99 mmol/L Normal 98-107 [facility] Comment on above: Performed By: #### OTTONIEL Blanco, PHOS ####[facility] [address] [place], [place] [address]Dr. Miladys Samuel CO2 [Moles/Vol] 28.8 mmol/L Normal 21.0-32.0 [facility] Comment on above: Performed By: #### OTTONIEL Blanco, PHOS ####[facility] [address] [place], [place] [address]Dr. Miladys Samuel Creatinine [Mass/Vol] 0.98 mg/dL Normal 0.70-1.30 [facility] Comment on above: Performed By: #### OTTONIEL Blanco, PHOS ####[facility] [address] [place], [place] [address]Dr. Miladys Samuel EGFR-AF TAIWANESE >60 Normal >=60 [facility] Comment on above: Performed By: #### OTTONIEL Blanco, PHOS ####[facility] [address] [address]Dr. Miladys Samuel EGFR-NON AF TAIWANESE >60 Normal >=60 [facility] Comment on above: Performed By: #### OTTONIEL Blanco, PHOS ####[facility] [address] [address]Dr. Miladys Samuel Glucose [Mass/Vol] 153 mg/dL Critically high 74-106 [facility] Comment on above: Performed By: #### OTTONIEL Blanco, PHOS ####[facility] [address] [id number]. Miladys Samuel Potassium [Moles/Vol] 4.5 mmol/L Normal 3.5-5.1 [facility] Comment on above: Performed By: #### M OTTONIEL Doyle, PHOS ####[facility] [address] [id number]. Miladys Samuel Sodium [Moles/Vol] 139 mmol/L Normal 136-145 [facility] Comment on above: Performed By: #### OTTONIEL Blanco, PHOS ####[facility] [address] [place], [place] [address]Fs. Miladys Samuel Urea nitrogen [Mass/Vol] 15.0 mg/dL Normal 7.0-18.0 [facility] Comment on above: Performed By: #### OTTONIEL Blanco, PHOS ####[facility] [address] [address]Dr. Miladys Samuel Urea nitrogen/Creatinine [Mass ratio] 15.3 mg/mg Normal [facility] Comment on above: Performed By: #### OTTONIEL Blanco, PHOS ####[facility] [address] [id number]. Miladys Samuel XR ABD FLAT UP_PA Bird 01-04 XR ABD FLAT UP_PA CH EXAMINATION: XR ABD FLAT UP_PA CH HISTORY: Small bowel obstruction COMPARISON: XR KUB 01/03/2023, XR abdomen with PA chest 09/09/2018 FINDINGS: LUNGS: Chronic elevation of left hemidiaphragm. No convincing infiltrates. MEDIASTINUM: No abnormal widening. BOWEL GAS PATTERN: Air and fluid-filled mildly distended loops of small bowel within the abdomen and pelvis. Bowel sutures within lower right abdomen. FREE AIR: None. CALCIFICATIONS: Bilateral kidney stones. BONES: No fracture or visible bone lesion. OTHER: Oral contrast from prior CT study within bladder. IMPRESSION: 1. Ileus versus distal small bowel bowel obstruction; ileus is favored. Electronically authenticated by: SHAUNA REYES Date: 2023-01-04 08:37 Normal [facility] XR KUB 1 VIEWon 01-04-2023 XR KUB 1 VIEW EXAM: XR KUB 1 VIEW HISTORY: Small bowel obstruction COMPARISON: CT abdomen pelvis 01/03/2023 TECHNIQUE: Single frontal view abdominal x-ray FINDINGS: Enteric tube distal tip at the gastric cardia. The sidehole is above the diaphragm at the lower esophagus, above the gastric body by at least 6 cm. Contrast within the bilateral renal collecting pelvic system. Bilateral renal calculi are seen by prior exam. No dilated small bowel silhouettes or air-fluid levels. IMPRESSION: Enteric tube as above. No dilated small bowel silhouette or air-fluid levels by current radiographic exam although abdominal x-ray is not sensitive to detect and evaluate for fluid filled small bowel obstruction. Electronically authenticated by: CRISTAL MI Date: 2023-01-04 00:40 Normal [facility] XR SMALL BOWELon 01-04-2023 XR SMALL BOWEL EXAM: XR SMALL BOWEL HISTORY: Small bowel obstruction COMPARISON: 01/04/2023 TECHNIQUE: 3 views of the abdomen FINDINGS and impression: Oral contrast is seen in the small and large bowel loops and the rectum. Small bowel loops are dilated measuring up to 3.6 cm. No significant change in the extent of the dilatation. Findings are likely representing ileus. Continued follow-up to evaluate stability. Electronically authenticated by: JESSE VO Date: 2023-01-04 17:36 Normal [facility] CBC AUTO DIFFon 01-03-2023 BASO # 0.0 103/ul Normal 0.0-0.1 [facility] Comment on above: Performed By: #### C BC ####[facility] [address] [id number]. Miladys Samuel Basophils/100 WBC (Bld) 0.1 % Critically low 0.2-2.0 [facility] Comment on above: Performed By: #### C BC ####[facility] [address] [id number]. Miladys Samuel EO # 0.0 103/ul Normal 0.0-0.7 [facility] Comment on above: Performed By: #### C BC ####[facility] [address] [id number]. Miladys Samuel Eosinophils/100 WBC (Bld) 0.5 % Critically low 0.9-7.0 [facility] Comment on above: Performed By: #### C BC ####[facility] [address] [address]Dr. Miladys Samuel Erythrocyte distribution width (RBC) [Ratio] 13.3 % Normal 11.0-15.0 [facility] Comment on above: Performed By: #### C BC ####[facility] [address] [place], [place] [address]Dr. Miladys Samuel Hematocrit (Bld) [Volume fraction] 41.3 % Critically low 42.0-54.0 [facility] Comment on above: Performed By: #### C BC ####[facility] [address] [place], [place] [address]Dr. Miladys Samuel Hemoglobin (Bld) [Mass/Vol] 13.8 g/dL Critically low 14.0-18.0 [facility] Comment on above: Performed By: #### C BC ####[facility] [address] [place], [place] [address]Dr. Miladys Samuel IG # 0.03 10e3/ul Normal 0.00-0.03 [facility] Comment on above: Performed By: #### C BC ####[facility] [address] [place], [place] [address]Dr. Miladys Samuel IG % 0.4 % Normal 0.0-0.5 [facility] Comment on above: Performed By: #### C BC ####[facility] [address] [place], [place] [address]Dr. Miladys Samuel LYMPH # 0.7 103/ul Critically low 1.2-3.8 [facility] Comment on above: Performed By: #### C BC ####[facility] [address] [place], [place] [address]Dr. Miladys Samuel Lymphocytes/100 WBC (Bld) 9.2 % Critically low 20.5-60.0 [facility] Comment on above: Performed By: #### C BC ####[facility] [address] [place], [place] [address]Dr. Miladys Samuel MANUAL DIFF REQ NO Normal [facility] Comment on above: Performed By: #### C BC ####[facility] [address] [id number]. Miladys Jimmie MCH (RBC) [Entitic mass] 27.9 pg Normal 25.9-34.0 [facility] Comment on above: Performed By: #### C BC ####[facility] [address] [address]Dr. Miladys Jimmie MCHC (RBC) [Mass/Vol] 33.4 g/dL Normal 29.9-35.2 [facility] Comment on above: Performed By: #### C BC ####[facility] [address] [address]Dr. Miladys Jimmie MCV (RBC) [Entitic vol] 83.6 fL Normal 80.0-94.0 [facility] Comment on above: Performed By: #### C BC ####[facility] [address] [place], [place] [address]Dr. Miladys Samuel MONO # 0.4 103/ul Normal 0.3-0.8 [facility] Comment on above: Performed By: #### C BC ####[facility] [address] [place], [place] [address]Dr. Cecilleearnest Samuel Monocytes/100 WBC (Bld) 5.7 % Normal 1.7-12.0 [facility] Comment on above: Performed By: #### C BC ####[facility] [address] [place], [place] [address]Dr. Cecilleearnest Jimmie NEUT # 6.5 103/ul Normal 1.4-6.5 [facility] Comment on above: Performed By: #### C BC ####[facility] [address] [place], [place] [id number]. Miladys Samuel Neutrophils/100 WBC (Bld) 84.1 % Critically high 43.0-75.0 [facility] Comment on above: Performed By: #### C BC ####[facility] [address] [place], [place] [address]Dr. Miladys Samuel Platelet mean volume (Bld) [Entitic vol] 9.9 fL Normal 9.5-13.5 [facility] Comment on above: Performed By: #### C BC ####[facility] [address] [place], [place] [address]Ph. Miladys Samuel PLT 130 103/ul Critically low 150-450 [facility] Comment on above: Performed By: #### C BC ####[facility] [address] [place], [place] [address]Ab. Miladys Samuel RBC 4.94 106/ul Normal 4.70-6.10 [facility] Comment on above: Performed By: #### C BC ####[facility] [address] [place], [place] [address]Xo. Miladys Samuel WBC 7.7 103/ul Normal 4.0-11.0 [facility] Comment on above: Performed By: #### C BC ####[facility] [address] [place], [place] [address]Rq. Mil[address] Samuel CT ABD/PELV W CONon 01-04-20 CT ABD/PELV W CON EXAMINATION: CT ABDO MEN AND PELVIS WITH IV CONTRAST CLINICAL HISTORY: Right lower quadrant pain and tenderness, with nausea. TECHNIQUE: CT of the abdomen and pelvis was performed using standard technique, scanning from just above the dome of the diaphragm to the symphysis pubis. All CT scans at this facility use dose modulation, iterative reconstruction, and/or weight based dosing when appropriate to reduce radiation dose to as low as reasonably achievable. Contrast: IV: 100 ml of Omnipaque 300 COMPARISON: CT abdomen and pelvis 11/02/2022. RESULT: Liver: Liver demonstrates homogenous attenuation. Unchanged 12 mm x 10 mm inferior right hepatic lobe simple cyst. Biliary: No bile duct dilation. Gallbladder is absent. Spleen: No mass. No splenomegaly. Pancreas: No mass or duct dilation. Adrenals: No mass. Kidneys: Multiple bilateral simple renal cysts the largest in the left inferior pole measures 13 mm. Multiple bilateral nonobstructing renal calculi largest in the right inferior pole measures 11 mm and the largest in the left inferior pole measures 4 mm. No hydronephrosis. GI tract: Small hiatal hernia. The stomach is otherwise unremarkable. Status post partial colectomy with colocolic anastomosis. Multiple fluid-filled dilated small bowel loops measuring up to 4.1 cm, with transition point near an anastomosis. No pneumoperitoneum or drainable fluid collection to suggest viscus perforation. Moderate colonic stool. Lymph nodes: No abdominal or pelvic lymphadenopathy. Mesentery/Peritoneum: Stable mesenteric soft tissue stranding around the right paracolic region (series 5 image 42), unchanged since 2021. Trace ascites in the right lower quadrant (series 3 image 85). No pneumoperitoneum or drainable fluid collection. Retroperitoneum: No mass. Vasculature: The celiac axis and SMA are patent. The portal vein and branches, splenic vein, SMV, and hepatic veins are patent. Abdominal aortic atherosclerotic disease without aneurysm. Pelvis: No mass, ascites or fluid collection. Urinary bladder is unremarkable. Bones/Soft Tissues: Degenerative changes. Lower thorax: Bibasilar atelectasis, worse on the left. IMPRESSION: 1. Status post partial colectomy with colocolic anastomosis. Multiple dilated small bowel loops measuring up to 4.1 cm, with transition point about the anastomosis compatible with small bowel obstruction. No pneumoperitoneum or drainable fluid collection. 2. Multiple bilateral nonobstructing renal calculi. Electronically authenticated by: CONSTANTINO HILL Date: 2023-01-03 21:05 Normal [facility] LIPASEon 01-03-2023 Lipase [Catalytic activity/Vol] 80.0 U/L Normal 73.0-393.0 [facility] Comment on above: Performed By: #### C VDTBH #### [facility] [address] [address] [address] Miladys Samuel LIVER PROFILEon 01-03-2023 Albumin [Mass/Vol] 4.1 g/dL Normal 3.4-5.0 [facility] Comment on above: Performed By: #### C VDTBH #### [facility] [address], [place] [address] Dr. Miladys Samuel Albumin/Globulin [Mass ratio] 1.3 {ratio} Normal [facility] Comment on above: Performed By: #### C VDTBH #### [facility] [address], [place] [address] Dr. Miladys Samuel ALP [Catalytic activity/Vol] 61 U/L Normal 46-116 [facility] Comment on above: Performed By: #### C VDTBH #### [facility] [address] [address] [address] Miladys Samuel ALT [Catalytic activity/Vol] 35 U/L Normal 16-63 [facility] Comment on above: Performed By: #### C VDTBH #### [facility] [address] [address] [address] Miladys Samuel AST [Catalytic activity/Vol] 28 U/L Normal 15-37 [facility] Comment on above: Performed By: #### C VDTBH #### [facility] [address] [address] [address] Miladys Samuel BILI, CONJUGATED 0.1 mg/dL Normal 0.0-0.2 [facility] Comment on above: Performed By: #### C VDTBH #### [facility] [address] [address] [address] Miladys Samuel Bilirubin [Mass/Vol] 0.5 mg/dL Normal 0.2-1.0 [facility] Comment on above: Performed By: #### C VDTBH #### [facility] [address] [address] [address] Miladys Samuel Globulin (S) [Mass/Vol] 3.2 g/dL Normal [facility] Comment on above: Performed By: #### C VDTBH #### [facility] [address] [address] [address] Miladys Samuel Protein [Mass/Vol] 7.3 g/dL Normal 6.4-8.2 [facility] Comment on above: Performed By: #### C VDTBH #### [facility] [address] [address] [address] Miladys Samuel MAGNESIUMon 01-03-2023 Magnesium [Mass/Vol] 1.4 mg/dL Critically low 1.8-2.4 [facility] Comment on above: Performed By: #### M G ####[facility] [address] [address]Dr. Miladys Samuel PROF CHEM 8 (BAS METB)on Anion gap [Moles/Vol] 12.9 mmol/L Normal [facility] Comment on above: Performed By: #### C VDTBH #### [facility] [address] [place] [address] Dr. Miladys Samuel Calcium [Mass/Vol] 9.7 mg/dL Normal 8.5-10.1 [facility] Comment on above: Performed By: #### C VDTBH #### [facility] [address] [place] [address] Dr. Miladys Samuel Chloride [Moles/Vol] 99 mmol/L Normal 98-107 [facility] Comment on above: Performed By: #### C VDTBH #### [facility] [address] [place] [address] Dr. Miladys Samuel CO2 [Moles/Vol] 28.3 mmol/L Normal 21.0-32.0 [facility] Comment on above: Performed By: #### C VDTBH #### [facility] [address] [place] [address] Dr. Miladys Samuel Creatinine [Mass/Vol] 1.10 mg/dL Normal 0.70-1.30 [facility] Comment on above: Performed By: #### C VDTBH #### [facility] [address] [place] [address] Dr. Miladys Samuel EGFR-AF TAIWANESE >60 Normal >=60 [facility] Comment on above: Performed By: #### C VDTBH #### [facility] [address] [place] [address] Dr. Miladys Samuel EGFR-NON AF TAIWANESE >60 Normal >=60 [facility] Comment on above: Performed By: #### C VDTBH #### [facility] [address] [place] [address] Dr. Miladys Samuel Glucose [Mass/Vol] 155 mg/dL Critically high 74-106 [facility] Comment on above: Performed By: #### C VDTBH #### [facility] [address] [place] [address] Dr. Miladys Samuel Potassium [Moles/Vol] 4.2 mmol/L Normal 3.5-5.1 [facility] Comment on above: Performed By: #### C VDTBH #### [facility] [address] [place] [address] Dr. Miladys Samuel Sodium [Moles/Vol] 136 mmol/L Normal 136-145 [facility] Comment on above: Performed By: #### C VDTBH #### [facility] [address] [place] [address] Dr. Miladys Samuel Urea nitrogen [Mass/Vol] 13.0 mg/dL Normal 7.0-18.0 [facility] Comment on above: Performed By: #### C VDTBH #### [facility] [address] [place] [address] Dr. Miladys Samuel Urea nitrogen/Creatinine [Mass ratio] 11.8 mg/mg Normal [facility] Comment on above: Performed By: #### C VDTBH #### [facility] [address] [place] [address] Dr. Miladys Samuel PROTIMEon 01-03-2023 INR Coag (PPP) [Relative time] 1.04 {INR} Normal [facility] Comment on above: Performed By: #### P TT, PT #### [facility] [address] [place] [address] Dr. Miladys Samuel INR GUIDELINES SEE BELOW Normal [facility] Comment on above: Result Comment: BRITTA RED INR: 2.0 - 3.0 CONDITIONS NOT LISTED BELOW 2.5 - 3.5 FOR PROSTHETIC HEART VALVE REPLACEMENT 2.5 - 3.5 RECURRENT THROMBOSIS Performed By: #### P TT, PT #### [facility] [address] [place] [address] Dr. Miladys Samuel PT Coag (PPP) [Time] 11.0 s Normal 9.0-11.6 [facility] Comment on above: Performed By: #### P TT, PT #### [facility] [address] [place] [address] Dr. Miladys Samuel PTTon 01-03-2023 aPTT Coag (Bld) [Time] 28.3 s Normal 22.3-36.2 [facility] Comment on above: Performed By: #### P TT, PT #### [facility] [address] [place] [address] Dr. Miladys Samuel TROPONIN, HIGH SENSITIVITYon 01-03-2023 HSTROP 8.0 pg/mL Normal 4.0-76.1 [facility] Comment on above: Result Comment: CUT- OFF POINTS HAVE BEEN ESTABLISHED BASED ON THE FOURTH UNIVERSAL DEFINITIONS OF MYOCARDIAL INFARCTION. THE UPPER REFERENCE LIMIT (URL) OF TROPONIN, DEFINED THE 99TH PERCENTILE OF cTnI DISTRIBUTION IN A REFERENCE POPULATION, HAS BEEN CONFIRMED THE DECISION THRESHOLD FOR RI DIAGNOSIS. Performed By: #### C VDTBH #### [facility] [address] [place] [address] Dr. Miladys Samuel AMYLASEon 11-04-2022 Amylase [Catalytic activity/Vol] 28 U/L Normal 25-115 [facility] Comment on above: Performed By: #### L IPA, NOHELIA #### [facility] [address] [place] [address] Dr. Miladys Samuel CBC AUTO DIFFon 11-04-2022 BASO # 0.0 103/ul Normal 0.0-0.1 [facility] Comment on above: Performed By: #### C VDTBH #### [facility] [address] [place] [address] Dr. Miladys Samuel Basophils/100 WBC (Bld) 0.2 % Normal 0.2-2.0 [facility] Comment on above: Performed By: #### C VDTBH #### [facility] [address] [place] [address] Dr. Miladys Samuel EO # 0.1 103/ul Normal 0.0-0.7 [facility] Comment on above: Performed By: #### C VDTBH #### [facility] [address] [place] [address] Dr. Miladys Samuel Eosinophils/100 WBC (Bld) 2.0 % Normal 0.9-7.0 [facility] Comment on above: Performed By: #### C VDTBH #### [facility] [address] [place] [address] Dr. Miladys Samuel Erythrocyte distribution width (RBC) [Ratio] 14.4 % Normal 11.0-15.0 [facility] Comment on above: Performed By: #### C VDTBH #### [facility] [address] [place] [address] Dr. Miladys Samuel Hematocrit (Bld) [Volume fraction] 42.0 % Normal 42.0-54.0 [facility] Comment on above: Performed By: #### C VDTBH #### [facility] [address] [place] [address] Dr. Miladys Samuel Hemoglobin (Bld) [Mass/Vol] 14.0 g/dL Normal 14.0-18.0 [facility] Comment on above: Performed By: #### C VDTBH #### [facility] [address] [place] [address] Dr. Miladys Samuel IG # 0.03 10e3/ul Normal 0.00-0.03 [facility] Comment on above: Performed By: #### C VDTBH #### [facility] [address] [place] [address] Dr. Miladys Samuel IG % 0.5 % Normal 0.0-0.5 [facility] Comment on above: Performed By: #### C VDTBH #### [facility] [address] [place] [address] Dr. Miladys Samuel LYMPH # 0.6 103/ul Critically low 1.2-3.8 [facility] Comment on above: Performed By: #### C VDTBH #### [facility] [address] [place] [address] Dr. Miladys Samuel Lymphocytes/100 WBC (Bld) 10.2 % Critically low 20.5-60.0 [facility] Comment on above: Performed By: #### C VDTBH #### [facility] [address] [place] [address] Dr. Miladys Samuel MANUAL DIFF REQ NO Normal [facility] Comment on above: Performed By: #### C VDTBH #### [facility] [address] [place] [address] Dr. Miladys Samuel MCH (RBC) [Entitic mass] 27.8 pg Normal 25.9-34.0 [facility] Comment on above: Performed By: #### C VDTBH #### [facility] [address] [place] [address] Dr. Miladys Samuel MCHC (RBC) [Mass/Vol] 33.3 g/dL Normal 29.9-35.2 [facility] Comment on above: Performed By: #### C VDTBH #### [facility] [address] [place] [address] Dr. Miladys Samuel MCV (RBC) [Entitic vol] 83.3 fL Normal 80.0-94.0 [facility] Comment on above: Performed By: #### C VDTBH #### [facility] [address] [place] [address] Dr. Miladys Samuel MONO # 0.5 103/ul Normal 0.3-0.8 [facility] Comment on above: Performed By: #### C VDTBH #### [facility] [address] [place] [address] Dr. Miladys Samuel Monocytes/100 WBC (Bld) 8.0 % Normal 1.7-12.0 [facility] Comment on above: Performed By: #### C VDTBH #### [facility] [address] [place] [address] Dr. Miladys Samuel NEUT # 4.8 103/ul Normal 1.4-6.5 [facility] Comment on above: Performed By: #### C VDTBH #### [facility] [address] [place] [address] Dr. Miladys Samuel Neutrophils/100 WBC (Bld) 79.1 % Critically high 43.0-75.0 [facility] Comment on above: Performed By: #### C VDTBH #### [facility] [address] [place] [address] Dr. Miladys Samuel Platelet mean volume (Bld) [Entitic vol] 9.8 fL Normal 9.5-13.5 [facility] Comment on above: Performed By: #### C VDTBH #### [facility] [address] [address] [address] Miladys Samuel PLT 111 103/ul Critically low 150-450 [facility] Comment on above: Performed By: #### C VDTBH #### [facility] [address] [address] [address] Miladys Samuel RBC 5.04 106/ul Normal 4.70-6.10 [facility] Comment on above: Performed By: #### C VDTBH #### [facility] [address] [address] [address] Miladys Samuel WBC 6.0 103/ul Normal 4.0-11.0 [facility] Comment on above: Performed By: #### C VDTBH #### [facility] [address] [place] [address] Dr. Miladys Samuel LIPASEon 11-04-2022 Lipase [Catalytic activity/Vol] 73.0 U/L Normal 73.0-393.0 [facility] Comment on above: Performed By: #### L IPA, NOHELIA ####[facility] [address] [place], [place] [address]Dr. Miladys Samuel POINT OF CARE GLUCOSEon 10-11 Glucose [Mass/Vol] 222 mg/dL Critically high 74-106 [facility] Comment on above: Performed By: #### A MY #### [facility] [address] [address] [address] Miladys Samuel PROF 14(COMP METB)on 023 Albumin [Mass/Vol] 3.7 g/dL Normal 3.4-5.0 [facility] Comment on above: Performed By: #### C MP ####[facility] [address] [address]Dr. Miladys Samuel Albumin/Globulin [Mass ratio] 1.4 {ratio} Normal [facility] Comment on above: Performed By: #### C MP ####[facility] [address] [address]Dr. Miladys Samuel ALP [Catalytic activity/Vol] 77 U/L Normal 46-116 [facility] Comment on above: Performed By: #### C MP ####[facility] [address] [id number]. Miladys Smauel ALT [Catalytic activity/Vol] 116 U/L Critically high 16-63 [facility] Comment on above: Performed By: #### C MP ####[facility] [address] [id number]. Miladys Samuel Anion gap [Moles/Vol] 14.1 mmol/L Normal [facility] Comment on above: Performed By: #### C MP ####[facility] [address] [address]Dr. Miladys Samuel AST [Catalytic activity/Vol] 54 U/L Critically high 15-37 [facility] Comment on above: Performed By: #### C MP ####[facility] [address] [place], [place] [address]Dr. Miladys Samuel Bilirubin [Mass/Vol] 0.6 mg/dL Normal 0.2-1.0 [facility] Comment on above: Performed By: #### C MP ####[facility] [address] [place], [place] [address]Dr. Miladys Samuel Calcium [Mass/Vol] 8.8 mg/dL Normal 8.5-10.1 [facility] Comment on above: Performed By: #### C MP ####[facility] [address] [place], [place] [address]Dr. Miladys Samuel Chloride [Moles/Vol] 101 mmol/L Normal 98-107 [facility] Comment on above: Performed By: #### C MP ####[facility] [address] [id number]. Miladys Samuel CO2 [Moles/Vol] 27.8 mmol/L Normal 21.0-32.0 [facility] Comment on above: Performed By: #### C MP ####[facility] [address] [place], [place] [address]Dr. Miladys Samuel Creatinine [Mass/Vol] 0.79 mg/dL Normal 0.70-1.30 [facility] Comment on above: Performed By: #### C MP ####[facility] [address] [address]Dr. Miladys Jimmie EGFR-AF TAIWANESE >60 Normal >=60 [facility] Comment on above: Performed By: #### C MP ####[facility] [address] [id number]. Miladys Jimmie EGFR-NON AF TAIWANESE >60 Normal >=60 [facility] Comment on above: Performed By: #### C MP ####[facility] [address] [id number]. Miladys Jimmie Globulin (S) [Mass/Vol] 2.7 g/dL Normal [facility] Comment on above: Performed By: #### C MP ####[facility] [address] [address]Dr. Cecilleearnest Jimmie Glucose [Mass/Vol] 153 mg/dL Critically high 74-106 [facility] Comment on above: Performed By: #### C MP ####[facility] [address] [id number]. Miladys Jimmie Potassium [Moles/Vol] 3.9 mmol/L Normal 3.5-5.1 [facility] Comment on above: Performed By: #### C MP ####[facility] [address] [address]. Cecilleearnest Jimmie Protein [Mass/Vol] 6.4 g/dL Normal 6.4-8.2 [facility] Comment on above: Performed By: #### C MP ####[facility] [address] [id number]. Cecilleearnest Samuel Sodium [Moles/Vol] 139 mmol/L Normal 136-145 [facility] Comment on above: Performed By: #### C MP ####[facility] [address] [address]Dr. Miladys Samuel Urea nitrogen [Mass/Vol] 9.0 mg/dL Normal 7.0-18.0 [facility] Comment on above: Performed By: #### C MP ####[facility] [address] [id number]. Miladys Samuel Urea nitrogen/Creatinine [Mass ratio] 11.4 mg/mg Normal [facility] Comment on above: Performed By: #### C MP ####[facility] [address] [id number]. Miladys Samuel XR KUB 1 VIEWon 11-04-2022 XR KUB 1 VIEW EXAM: XR KUB 1 VIEW HISTORY: Intestinal obstruction COMPARISON: 11/02/2022 and before TECHNIQUE: Supine views of the abdomen and pelvis. FINDINGS: NG tube again seen with the sidehole near the level of the GE junction and tip over the fundus. Essentially stable bowel gas pattern, with gas seen in nondistended colon and some gas in small bowel loops. Anastomotic sutures noted on the right. Several bilateral renal calculi, largest 6.7 mm in the inferior right kidney. Visualized osseous structures appear grossly unchanged. Residual contrast seen in the bladder. IMPRESSION: 1. NG tube again seen with the sidehole near the level of the GE junction and tip over the fundus. Recommend advancement. 2. Essentially stable nonspecific bowel gas pattern. 3. Renal calculi. Electronically authenticated by: MARTA COLEMAN Date: 2022-11-04 02:22 Normal [facility] AMYLASEon 11-03-2022 Amylase [Catalytic activity/Vol] 31 U/L Normal 25-115 [facility] Comment on above: Performed By: #### A MY #### [facility] [address] [place] [address] Dr. Miladys Samuel CBC AUTO DIFFon 11-03-2022 BASO # 0.0 103/ul Normal 0.0-0.1 [facility] Comment on above: Performed By: #### A MY #### [facility] [address] [place] [address] Dr. Miladys Samuel Basophils/100 WBC (Bld) 0.2 % Normal 0.2-2.0 [facility] Comment on above: Performed By: #### A MY #### [facility] [address] [place] [address] Dr. Miladys Samuel EO # 0.1 103/ul Normal 0.0-0.7 [facility] Comment on above: Performed By: #### A MY #### [facility] [address] [place] [address] Dr. Miladys Samuel Eosinophils/100 WBC (Bld) 1.5 % Normal 0.9-7.0 [facility] Comment on above: Performed By: #### A MY #### [facility] [address] [place] [address] Dr. Miladys Samuel Erythrocyte distribution width (RBC) [Ratio] 14.0 % Normal 11.0-15.0 [facility] Comment on above: Performed By: #### A MY #### [facility] [address] [place] [address] Dr. Miladys Samuel Hematocrit (Bld) [Volume fraction] 40.0 % Critically low 42.0-54.0 [facility] Comment on above: Performed By: #### A MY #### [facility] [address] [place] [address] Dr. Miladys Samuel Hemoglobin (Bld) [Mass/Vol] 13.4 g/dL Critically low 14.0-18.0 [facility] Comment on above: Performed By: #### A MY #### [facility] [address] [place] [address] Dr. Miladys Samuel IG # 0.02 10e3/ul Normal 0.00-0.03 [facility] Comment on above: Performed By: #### A MY #### [facility] [address] [place] [address] Dr. Miladys Samuel IG % 0.4 % Normal 0.0-0.5 [facility] Comment on above: Performed By: #### A MY #### [facility] [address] [place] [address] Dr. Miladys Samuel LYMPH # 0.8 103/ul Critically low 1.2-3.8 [facility] Comment on above: Performed By: #### A MY #### [facility] [address] [place] [address] Dr. Miladys Samuel Lymphocytes/100 WBC (Bld) 14.2 % Critically low 20.5-60.0 [facility] Comment on above: Performed By: #### A MY #### [facility] [address] [place] [address] Dr. Miladys Samuel MANUAL DIFF REQ NO Normal [facility] Comment on above: Performed By: #### A MY #### [facility] [address] [place] [address] Dr. Miladys Samuel MCH (RBC) [Entitic mass] 27.7 pg Normal 25.9-34.0 [facility] Comment on above: Performed By: #### A MY #### [facility] [address] [place] [address] Dr. Miladys Samuel MCHC (RBC) [Mass/Vol] 33.5 g/dL Normal 29.9-35.2 [facility] Comment on above: Performed By: #### A MY #### [facility] [address] [place] [address] Dr. Miladys Samuel MCV (RBC) [Entitic vol] 82.6 fL Normal 80.0-94.0 [facility] Comment on above: Performed By: #### A MY #### [facility] [address] [place] [address] Dr. Miladys Samuel MONO # 0.6 103/ul Normal 0.3-0.8 [facility] Comment on above: Performed By: #### A MY #### [facility] [address] [place] [address] Dr. Miladys Samuel Monocytes/100 WBC (Bld) 10.9 % Normal 1.7-12.0 [facility] Comment on above: Performed By: #### A MY #### [facility] [address] [place] [address] Dr. Miladys Samuel NEUT # 3.9 103/ul Normal 1.4-6.5 [facility] Comment on above: Performed By: #### A MY #### [facility] [address] [place] [address] Dr. Miladys Samuel Neutrophils/100 WBC (Bld) 72.8 % Normal 43.0-75.0 [facility] Comment on above: Performed By: #### A MY #### [facility] [address] [address] [address] Miladys Samuel Platelet mean volume (Bld) [Entitic vol] 9.6 fL Normal 9.5-13.5 [facility] Comment on above: Performed By: #### A MY #### [facility] [address] [address] [address] Miladys Samuel PLT 121 103/ul Critically low 150-450 [facility] Comment on above: Performed By: #### A MY #### [facility] [address] [address] [address] Miladys Samuel RBC 4.84 106/ul Normal 4.70-6.10 [facility] Comment on above: Performed By: #### A MY #### [facility] [address] [address] [address] Miladys Samuel WBC 5.3 103/ul Normal 4.0-11.0 [facility] Comment on above: Performed By: #### A MY #### [facility] Laboratory [address] [place] [address] Dr. Miladys Samuel ER URINE PROFILEon 3 Bilirubin Ql (U) Negative Normal NEGATIVE [facility] Comment on above: Performed By: #### SAUMEL RODRIGUEZRO ####[facility] [address] [address]DrElinor Samuel Clarity (U) CLEAR Normal CLEAR [facility] Comment on above: Performed By: #### SAMUEL RODRIGUEZRO ####[facility] [address] [address]DrElinor Samuel Color (U) YELLOW Normal YELLOW [facility] Comment on above: Performed By: #### SAMUEL RODRIGUEZRO ####[facility] [address] [address]DrElinor Samuel ERURAMONAD A micrscopic examina tion will be performed if indicated. Normal [facility] Comment on above: Performed By: #### GUIDO RODRIGUEZ ####[facility] [address] [address]Dr. Miladys Samuel Glucose Ql (U) Negative Normal NEGATIVE [facility] Comment on above: Performed By: #### GUIDO RODRIGUEZ ####[facility] [address]aduchc[address] [address]Dr. Miladys Samuel Hemoglobin Ql (U) LARGE Abnormal NEGATIVE [facility] Comment on above: Performed By: #### GUIDO RODRIGUEZ ####[facility] [address] [place], [place] [address]Dr. Miladys Samuel Ketones Ql (U) TRACE Abnormal NEGATIVE [facility] Comment on above: Performed By: #### GUIDO RODRIGUEZ ####[facility] Oor[address]mys[address] [place], [place] [address]Dr. Miladys Samuel LEUKOCYTES Negative Normal NEGATIVE [facility] Comment on above: Performed By: #### GUIDO RODRIGUEZ ####[facility] [address] [place], [place] [address]Dr. Miladys Samuel Nitrite Ql (U) Negative Normal NEGATIVE [facility] Comment on above: Performed By: #### GUIDO RODRIGUEZ ####[facility] [address] [place], [place] [address]Dr. Miladys Samuel pH (U) 6.0 [pH] Normal 5-9 [facility] Comment on above: Performed By: #### GUIDO RODRIGUEZ ####[facility] Aardduaykw[address] [place], [place] [address]Dr. Miladys Samuel SPEC GRAVITY 1.010 Normal 1.005-<=1.0 25 [facility] Comment on above: Performed By: #### GUIDO RODRIGUEZ ####[facility] Ng[address]xfsy[address] [place], [place] [address]Dr. Miladys Samuel UA PROTEIN Negative Normal NEGATIVE/ TRACE [facility] Comment on above: Performed By: #### GUIDO RODRIGUEZ ####[facility] Dbvzgmtpso[address] [place], [place] [address]Dr. Miladys Samuel UR MICRO IND INDICATED Normal [facility] Comment on above: Performed By: #### E GUIDO FORRESTER ####[facility] [address] [address]Dr. Miladys Samuel Urobilinogen Qn (U) 0.2 {Kathie'U}/dL Normal 0.2 - 1. 0 [facility] Comment on above: Performed By: #### E SAMUEL FORRESTERRO ####[facility] [address] [address]Dr. Miladys Samuel LACTATE/LACTIC ACIDon 2022 Lactate [Moles/Vol] 1.9 mmol/L Normal 0.4-1.9 [facility] Comment on above: Performed By: #### A MY #### [facility] Laboratory [address] [place] [address] Dr. Miladys Samuel LIPASEon 11-03-2022 Lipase [Catalytic activity/Vol] 106.0 U/L Normal 73.0-393.0 [facility] Comment on above: Performed By: #### A MY #### [facility] Laboratory [address] [place] [address] Dr. Miladys Samuel POINT OF CARE GLUCOSEon 10-11 Glucose [Mass/Vol] 190 mg/dL Critically high [address] [place] [address] Comment on above: Performed By: #### L ACT #### [facility] Laboratory [address] [place] [address] Dr. Miladys Samuel Glucose [Mass/Vol] 115 mg/dL Critically high -106 [facility] Comment on above: Performed By: #### P OCGLUC ####[facility] [address] [address]Dr. Miladys Samuel Glucose [Mass/Vol] 134 mg/dL Critically high -106 [facility] Comment on above: Performed By: #### P OCGLUC #### [facility] Laboratory [address] [place] [address] Dr. Miladys Samuel Glucose [Mass/Vol] 153 mg/dL Critically high -106 [facility] Comment on above: Performed By: #### P OCGLUC ####[facility] [address]gstt[address] [address]Dr. Miladys aSmuel PROF CHEM 8 (BAS METB)on Anion gap [Moles/Vol] 11.0 mmol/L Normal [facility] Comment on above: Performed By: #### B MP ####[facility] [address]rhuw[address] [address]Dr. Miladys Samuel Calcium [Mass/Vol] 8.5 mg/dL Normal 8.5-10.1 [facility] Comment on above: Performed By: #### B MP ####[facility] [address]howdss[address] [place], [place] [address]Dr. Miladys Samuel Chloride [Moles/Vol] 101 mmol/L Normal 98-107 [facility] Comment on above: Performed By: #### B MP ####[facility] Cfxgnsra[address] [place], [place] [address]Dr. Miladys Samuel CO2 [Moles/Vol] 31.3 mmol/L Normal 21.0-32.0 [facility] Comment on above: Performed By: #### B MP ####[facility] Ltohyktkjy[address] [place], [place] [address]Dr. Miladys Samuel Creatinine [Mass/Vol] 0.95 mg/dL Normal 0.70-1.30 [facility] Comment on above: Performed By: #### B MP ####[facility] Bosgfrc[address] [place], [place] [address]Dr. Miladys Samuel EGFR-AF TAIWANESE >60 Normal >=60 [facility] Comment on above: Performed By: #### B MP ####[facility] I[address]tuvqyer[address] [place], [place] [address]Dr. Miladys Samuel EGFR-NON AF TAIWANESE >60 Normal >=60 [facility] Comment on above: Performed By: #### B MP ####[facility] [address]uxv[address]lymc[address] [place], [place] [address]Dr. Miladys Samuel Glucose [Mass/Vol] 140 mg/dL Critically high 74-106 [facility] Comment on above: Performed By: #### B MP ####[facility] [address] [address]Dr. Miladys Samuel Potassium [Moles/Vol] 4.3 mmol/L Normal 3.5-5.1 [facility] Comment on above: Performed By: #### B MP ####[facility] [address]lamnxee[address] [address]Dr. Miladys Samuel Sodium [Moles/Vol] 139 mmol/L Normal 136-145 [facility] Comment on above: Performed By: #### B MP ####[facility] Xcdkulgmul[address] [place], [place] [address]Dr. Miladys Samuel Urea nitrogen [Mass/Vol] 12.0 mg/dL Normal 7.0-18.0 [facility] Comment on above: Performed By: #### B MP ####[facility] Bzjpx[address] [place], [place] [address]Dr. Miladys Samuel Urea nitrogen/Creatinine [Mass ratio] 12.6 mg/mg Normal [facility] Comment on above: Performed By: #### B MP ####[facility] Qhw[address]ortbni[address] [place], [place] [address]Dr. Miladys Samuel URINE MICROSCOPIC ONLYon BACTERIA TRACE Abnormal NONE SEEN [facility] Comment on above: Performed By: #### SAMUEL RODRIGUEZRO ####[facility] [address] [place], [place] [address]Dr. Miladys Samuel Bacteria identified Cx Nom (U) NOT INDICATED Normal [facility] Comment on above: Performed By: #### SAMUEL RODRIGUEZRO ####[facility] [address] [place], [place] [address]Dr. Miladys Samuel CAST NONE SEEN Normal NONE SEEN [facility] Comment on above: Performed By: #### SAMUEL RODRIGUEZRO ####[facility] Yfobcuobji[address] [place], [place] [address]Dr. Miladys Samuel Crystals LM Nom (Urine sed) NONE SEEN Normal NONE SEEN [facility] Comment on above: Performed By: #### SAMUEL RODRIGUEZRO ####[facility] [address] [address]Dr. Miladys Samuel Epithelial cells LM Ql (Urine sed) RARE Normal NONE SEEN /RARE [facility] Comment on above: Performed By: #### GUIDO RODRIGUEZ ####[facility] [address] [address]Dr. Miladys Samuel MUCOUS NONE SEEN Normal NONE SEEN [facility] Comment on above: Performed By: #### GUIDO RODRIGUEZ ####[facility] [address] [address]Dr. Miladys Samuel RBC 2-5 Abnormal 0-2 [facility] Comment on above: Performed By: #### GUIDO RODRIGUEZ ####[facility] [address] [address]Dr. Miladys Samuel WBC 0-2 Abnormal NONE SEEN [facility] Comment on above: Performed By: #### GUIDO RODRIGUEZ ####[facility] [address] [address]Dr. Miladys Samuel XR KUB 1 VIEWon 11-03-2022 XR KUB 1 VIEW EXAM: XR KUB 1 VIEW HISTORY: Enteric tube placement COMPARISON: 8:31 PM x-ray TECHNIQUE: Single view FINDINGS: IMPRESSION: Enteric tube is visualized with tip below the diaphragm. The sidehole is at the level of the GE junction. Tube needs to be advanced. Again demonstrated is contrast within the stomach and renal collecting systems. Electronically authenticated by: MARY RODRIGUEZ Date: 2022-11-02 22:41 Normal [facility] CBC AUTO DIFFon 11-02-2022 BASO # 0.0 103/ul Normal 0.0-0.1 [facility] Comment on above: Performed By: #### C VDTB #### [facility] Laboratory [address] [address] [address] Miladys Samuel Basophils/100 WBC (Bld) 0.3 % Normal 0.2-2.0 [facility] Comment on above: Performed By: #### C VDTBH #### [facility] [address] [address] [address] Miladys Samuel EO # 0.1 103/ul Normal 0.0-0.7 [facility] Comment on above: Performed By: #### C VDTBH #### [facility] Laboratory [address] [place] [address] Dr. Miladys Samuel Eosinophils/100 WBC (Bld) 1.8 % Normal 0.9-7.0 [facility] Comment on above: Performed By: #### C VDTBH #### [facility] [address] [place] [address] Dr. Miladys Samuel Erythrocyte distribution width (RBC) [Ratio] 14.0 % Normal 11.0-15.0 [facility] Comment on above: Performed By: #### C VDTBH #### [facility] Laboratory [address] [place] [address] Dr. Miladys Samuel Hematocrit (Bld) [Volume fraction] 44.1 % Normal 42.0-54.0 [facility] Comment on above: Performed By: #### C VDTB #### [facility] [address] [place] [address] Dr. Miladys Samuel Hemoglobin (Bld) [Mass/Vol] 14.6 g/dL Normal 14.0-18.0 [facility] Comment on above: Performed By: #### C VDTBH #### [facility] [address] [place] [address] Dr. Miladys Samuel IG # 0.02 10e3/ul Normal 0.00-0.03 [facility] Comment on above: Performed By: #### C VDTBH #### [facility] [address] [place] [address] Dr. Miladys Samuel IG % 0.3 % Normal 0.0-0.5 [facility] Comment on above: Performed By: #### C VDTBH #### [facility] [address] [place] [address] Dr. Miladys Samuel LYMPH # 1.2 103/ul Normal 1.2-3.8 [facility] Comment on above: Performed By: #### C VDTBH #### [facility] Laboratory [address] [place] [address] Dr. Miladys Samuel Lymphocytes/100 WBC (Bld) 16.1 % Critically low 20.5-60.0 [facility] Comment on above: Performed By: #### C VDTBH #### [facility] [address] [place] [address] Dr. Miladys Samuel MANUAL DIFF REQ NO Normal [facility] Comment on above: Performed By: #### C VDTBH #### [facility] [address] [place] [address] Dr. Miladys Samuel MCH (RBC) [Entitic mass] 27.3 pg Normal 25.9-34.0 [facility] Comment on above: Performed By: #### C VDTBH #### [facility] [address] [place] [address] Dr. Miladys Samuel MCHC (RBC) [Mass/Vol] 33.1 g/dL Normal 29.9-35.2 [facility] Comment on above: Performed By: #### C VDTBH #### [facility] [address] [place] [address] Dr. Miladys Samuel MCV (RBC) [Entitic vol] 82.4 fL Normal 80.0-94.0 [facility] Comment on above: Performed By: #### C VDTBH #### [facility] [address] [place] [address] Dr. Miladys Samuel MONO # 0.4 103/ul Normal 0.3-0.8 [facility] Comment on above: Performed By: #### C VDTBH #### [facility] [address] [place] [address] Dr. Miladys Samuel Monocytes/100 WBC (Bld) 5.3 % Normal 1.7-12.0 [facility] Comment on above: Performed By: #### C VDTBH #### [facility] [address] [place] [address] Dr. Miladys Samuel NEUT # 5.8 103/ul Normal 1.4-6.5 [facility] Comment on above: Performed By: #### C VDTBH #### [facility] Laboratory [address] [place], [place] [address] Dr. Miladys Samuel Neutrophils/100 WBC (Bld) 76.2 % Critically high 43.0-75.0 [facility] Comment on above: Performed By: #### C VDTBH #### [facility] [address] [place] [address] Dr. Miladys Samuel Platelet mean volume (Bld) [Entitic vol] 10.0 fL Normal 9.5-13.5 [facility] Comment on above: Performed By: #### C VDTBH #### [facility] [address] [place] [address] Dr. Miladys Samuel PLT 160 103/ul Normal 150-450 [facility] Comment on above: Performed By: #### C VDTBH #### [facility] [address] [place] [address] Dr. Miladys Samuel RBC 5.35 106/ul Normal 4.70-6.10 [facility] Comment on above: Performed By: #### C VDTBH #### [facility] [address] [place] [address] Dr. Miladys Samuel WBC 7.6 103/ul Normal 4.0-11.0 [facility] Comment on above: Performed By: #### C VDTBH #### [facility] [address] [place] [address] ABD/PELV W CONon 11-02-[address] ABD/PELV W CON CT ABDOMEN AND PELVI S WITH CONTRAST: INDICATION: Intestinal obstruction. COMPARISON: 08/18/2022. TECHNIQUE:Multiple thin section transaxial slices were acquired through the abdomen and pelvis with intravenous contrast. Coronal and sagittal reconstructed images were reviewed. Oral contrastWas not administered. FINDINGS: LOWER CHEST: There is chronic scarring or atelectasis in the lung bases, left greater than right. LIVER: There is similar hypodensities in the anterior liver. There is a stable hepatic cyst in the right lobe measuring 1.9 cm. GALLBLADDER AND BILIARY SYSTEM: No obvious ductal dilation. The gallbladder is absent. SPLEEN: The spleen is unremarkable. PANCREAS: There is stable atrophy of the body and tail of the pancreas. ADRENAL GLANDS: The adrenal glands are unremarkable. KIDNEYS AND URETERS: There is no hydronephrosis of the kidneys.There are nonobstructive bilateral intrarenal calculi. There are several tiny hypodensities in the kidneys are too small to optimally characterize. There is a stable cortical cyst in the left kidney. The ureters are within normal limits without obstructing urologic calcifications. VASCULATURE: There is atherosclerotic plaque abdominal aorta without aneurysm. PERITONEUM/RETROPERITONEUM : There is edema traversing along each paracolic gutter, right greater than left. There is some mesenteric fluid. This is located in the right mid to lower abdomen. There is no free intraperitoneal air. LYMPH NODES: No suspicious lymphadenopathy. GASTROINTESTINAL TRACT: There are abnormally distended small bowel loops in the right abdomen concerning for developing small bowel obstruction. A potential transition point may be in the anterior right mid abdomen with beaking of the small bowel based on series 3 image 81.The colonic bowel loops are decompressed. There are postsurgical changes from right hemicolectomy. BLADDER: The urinary bladder is unremarkable. REPRODUCTIVE SYSTEM: Reproductive system is unremarkable. BODY WALL: There are postsurgical changes along the anterior abdominal wall. BONES: Osseous structures are unremarkable. IMPRESSION: 1. Abnormally distended small bowel loops in the right abdomen concerning for a small bowel obstruction. Possible transition point may be in the anterior right mid abdomen as discussed above. 2. Additional stable chronic/postsurgical findings elsewhere as discussed above. Electronically authenticated by: RYLAN YADAV Date: 2022-11-02 19:32 Normal [facility] Covid-19 PCR (CVDTBH)on 10-11 SARS-CoV-2 (COVID-19) RNA FELY+probe Ql (Unsp spec) Not detected Normal NOT DETECTED [facility] Comment on above: Result Comment: When diagnostic testing is negative, the possibility of a false negative should be considered in the context of a patient's recent exposures and the presence of clinical signs and symptoms consistent with SARS-CoV-2. This test is not yet approved or cleared by the [place] FDA. When there are no FDA-approved or cleared tests available, and other criteria are met, FDA can make tests available under an emergency access mechanism called an Emergency Use Authorization (EUA). The EUA for this test is supported by the Speed of Health and Human Service's declaration that circumstances exist to justify the emergency use of in vitro diagnostics for the detection and/or diagnosis of the virus that causes COVID-19. This EUA will remain in effect for the duration of the COVID-19 declaration justifying emergency of IVDs, unless it is terminated or revoked by the FDA (after which the test may no longer be used). Performed By: #### C VDTB #### [facility] [address] [place] [address] Dr. Miladys Samuel LACTATE/LACTIC ACIDon 2022 Lactate [Moles/Vol] 3.1 mmol/L Critically high 0.4-1.9 [facility] Comment on above: Performed By: #### L ACT ####[facility] [address] [address]Dr. Miladys Samuel Lactate [Moles/Vol] 3.0 mmol/L Critically high 0.4-1.9 [facility] Comment on above: Performed By: #### L ACT #### [facility] Laboratory [address] [place] [address] Dr. Miladys Samuel LIPASEon 11-02-2022 Lipase [Catalytic activity/Vol] 573.0 U/L Critically high 73.0-393.0 [facility] Comment on above: Performed By: #### A MY #### [facility] [address] [place] [address] Dr. Miladys Samuel PROF 14(COMP METB)on 023 Albumin [Mass/Vol] 4.2 g/dL Normal 3.4-5.0 [facility] Comment on above: Performed By: #### A MY #### [facility] [address] [place] [address] Dr. Miladys Samuel Albumin/Globulin [Mass ratio] 1.3 {ratio} Normal [facility] Comment on above: Performed By: #### A MY #### [facility] [address] [place] [address] Dr. Miladys Samuel ALP [Catalytic activity/Vol] 65 U/L Normal 46-116 [facility] Comment on above: Performed By: #### A MY #### [facility] [address] [place] [address] Dr. Miladys Samuel ALT [Catalytic activity/Vol] 37 U/L Normal 16-63 [facility] Comment on above: Performed By: #### A MY #### [facility] [address] [place] [address] Dr. Miladys Samuel Anion gap [Moles/Vol] 12.6 mmol/L Normal [facility] Comment on above: Performed By: #### A MY #### [facility] [address] [address] [address] Miladys Samuel AST [Catalytic activity/Vol] 45 U/L Critically high 15-37 [facility] Comment on above: Performed By: #### A MY #### [facility] [address] [place] [address] Dr. Miladys Samuel Bilirubin [Mass/Vol] 0.5 mg/dL Normal 0.2-1.0 [facility] Comment on above: Performed By: #### A MY #### [facility] [address] [place] [address] Dr. Miladys Samuel Calcium [Mass/Vol] 9.5 mg/dL Normal 8.5-10.1 [facility] Comment on above: Performed By: #### A MY #### [facility] [address] [place] [address] Dr. Miladys Samuel Chloride [Moles/Vol] 98 mmol/L Normal 98-107 [facility] Comment on above: Performed By: #### A MY #### [facility] [address] [place] [address] Dr. Miladys Samuel CO2 [Moles/Vol] 29.9 mmol/L Normal 21.0-32.0 [facility] Comment on above: Performed By: #### A MY #### [facility] [address] [place] [address] Dr. Miladys Samuel Creatinine [Mass/Vol] 0.97 mg/dL Normal 0.70-1.30 [facility] Comment on above: Performed By: #### A MY #### [facility] [address] [place] [address] Dr. Miladys Samuel EGFR-AF TAIWANESE >60 Normal >=60 [facility] Comment on above: Performed By: #### A MY #### [facility] [address] [address] [address] Miladys Samuel EGFR-NON AF TAIWANESE >60 Normal >=60 [facility] Comment on above: Performed By: #### A MY #### [facility] [address] [place] [address] Dr. Miladys Samuel Globulin (S) [Mass/Vol] 3.2 g/dL Normal [facility] Comment on above: Performed By: #### A MY #### [facility] [address] [place] [address] Dr. Miladys Samuel Glucose [Mass/Vol] 154 mg/dL Critically high 74-106 [facility] Comment on above: Performed By: #### A MY #### [facility] [address] [place] [address] Dr. Miladys Samuel Potassium [Moles/Vol] 4.5 mmol/L Normal 3.5-5.1 [facility] Comment on above: Performed By: #### A MY #### [facility] [address] [place] [address] Dr. Miladys Samuel Protein [Mass/Vol] 7.4 g/dL Normal 6.4-8.2 [facility] Comment on above: Performed By: #### A MY #### [facility] [address] [place] [address] Dr. Miladys Samuel Sodium [Moles/Vol] 136 mmol/L Normal 136-145 [facility] Comment on above: Performed By: #### A MY #### [facility] [address] [place] [address] Dr. Miladys Samuel Urea nitrogen [Mass/Vol] 7.0 mg/dL Normal 7.0-18.0 [facility] Comment on above: Performed By: #### A MY #### [facility] [address] [place] [address] Dr. Miladys Samuel Urea nitrogen/Creatinine [Mass ratio] 7.2 mg/mg Normal [facility] Comment on above: Performed By: #### A MY #### [facility] [address] [place], [place] [address] Dr. Miladys Samuel PROTIMEon 11-02-2022 INR Coag (PPP) [Relative time] 1.02 {INR} Normal [facility] Comment on above: Performed By: #### P TT, PT ####[facility] [address] [id number]. Miladys Samuel INR GUIDELINES SEE BELOW Normal [facility] Comment on above: Result Comment: BRITTA RED INR: 2.0 - 3.0 CONDITIONS NOT LISTED BELOW 2.5 - 3.5 FOR PROSTHETIC HEART VALVE REPLACEMENT 2.5 - 3.5 RECURRENT THROMBOSIS Performed By: #### P TT, PT ####[facility] [address] [address]DrElinor Samuel PT Coag (PPP) [Time] 10.8 s Normal 9.0-11.6 [facility] Comment on above: Performed By: #### P TT, PT ####[facility] [address] [address]Dr. Miladys Samuel PTTon 11-02-2022 aPTT Coag (Bld) [Time] 24.6 s Normal 22.3-36.2 [facility] Comment on above: Performed By: #### P TT, PT ####[facility] [address] [address]Dr. Miladys Samuel XR KUB 1 VIEWon 11-02-2022 XR KUB 1 VIEW EXAM: XR KUB 1 VIEW HISTORY: Enteric tube placement COMPARISON: Abdomen and pelvic CT earlier in the day TECHNIQUE: Single view FINDINGS: IMPRESSION: Bowel gas pattern no gross free peritoneal air. Contrast within the bladder, renal collecting system and stomach. No visualized enteric tube. Electronically authenticated by: MARY RODRIGUEZ Date: 2022-11-02 21:33 Normal [facility] 30on 08-20-2022 30 The patient is Moder ately Stable - Low risk of patient condition declining or worsening The patient's goals for the shift include comfort The clinical goals for the shift include comfort Over the shift, the patient did not make progress toward the following goals. Barriers to progression include pain. Recommendations to address these barriers include goo pain relief. Normal [facility] BASIC METABOLIC PANELon 12- Anion gap [Moles/Vol] 3 mmol/L Low 7-20 [facility] Comment on above: Performed By: #### L [id number] #### [facility] ([facility]) [address] [place] [address] Calcium [Mass/Vol] 8.0 mg/dL Low 8.6-10.3 [facility] Comment on above: Performed By: #### L [id number] #### [facility] ([facility]) [address] [place] [address] Chloride [Moles/Vol] 101 mmol/L Normal 98-107 [facility] Comment on above: Performed By: #### L [id number] #### [facility] ([facility]) [address] [place] [address] CO2 [Moles/Vol] 33 mmol/L High 21-31 [facility] Comment on above: Performed By: #### L [id number] #### [facility] ([facility]) [address] [place] [address] Creatinine [Mass/Vol] 0.83 mg/dL Normal 0.70-1.30 [facility] Comment on above: Performed By: #### L [id number] #### [facility] ([facility]) [address] [place] [address] GLOMERULAR FILTRATION RATE ML/MIN/1.73 SQ M.PREDICTED 91.7 mL/min/1.73m*2 Normal >60.0 [facility] Comment on above: Result Comment: The [facility]???s estimated glomerular filtration rate (eGFR) will no longer include consideration of race in its calculation. The National Kidney Foundation???s eGFR Task Force developed new recommendations for the estimation of the glomerular filtration rate in the [place] They recommend immediate implementation of the new equation refit without the race variable in all laboratories because the calculation does not include race. In addition to not including race in the calculation and reporting, it included diversity in its development, and has acceptable performance characteristics and potential consequences that do not disproportionately affect any one group of individuals. Performed By: #### L [id number] #### [facility] ([facility]) [address] [place] [address] Glucose [Mass/Vol] 163 mg/dL High 70-100 [facility] Comment on above: Performed By: #### L [id number] #### [facility] ([facility]) [address] [place] [address] Potassium [Moles/Vol] 3.9 mmol/L Normal 3.5-5.1 [facility] Comment on above: Performed By: #### L [id number] #### [facility] ([facility]) [address] [place] [address] Sodium [Moles/Vol] 137 mmol/L Normal 136-145 [facility] Comment on above: Performed By: #### L [id number] #### [facility] ([facility]) [address] [place] [address] Urea nitrogen [Mass/Vol] 14 mg/dL Normal 7-25 [facility] Comment on above: Performed By: #### L [id number] #### [facility] ([facility]) [address] [place] [address] UREA NITROGEN/CREATININE (MASS RATIO) IN SER/PLAS 16.87 Normal [facility] Comment on above: Performed By: #### L [id number] #### [facility] ([facility]) [address] [place] [address] CBC WITH AUTO DIFFERENTIALon 08-20-2022 ERYTHROCYTE DISTRIBUTION WIDTH (RATIO) STANDARD DEVIATION 43.4 Normal [facility] Comment on above: Performed By: #### L [id number] #### [facility] ([facility]) [address] [place] [address] Erythrocyte distribution width (RBC) [Ratio] 13.6 % Normal 11.5-15.0 [facility] Comment on above: Performed By: #### L [id number] #### [facility] ([facility]) [address] [place] [address] ERYTHROCYTE MEAN CORPUSCULAR HEMOGLOBIN CONCENTRATION (G/DL) BY AUTOMATED 32.5 g/dL Normal 32.0-35.0 [facility] Comment on above: Performed By: #### L [id number] #### [facility] ([facility]) [address] [place] [address] Hematocrit (Bld) [Volume fraction] 36.0 % Low 39.0-55.0 [facility] Comment on above: Performed By: #### L [id number] #### [facility] ([facility]) [address] [place] [place] [address] Hemoglobin (Bld) [Mass/Vol] 11.7 g/dL Low 13.0-17.0 [facility] Comment on above: Performed By: #### L [id number] #### [facility] ([facility]) [address] [place] [place] [address] MCH (RBC) [Entitic mass] 28.3 pg Normal 27.0-33.0 [facility] Comment on above: Performed By: #### L [id number] #### [facility] ([facility]) [address] [place] [address] MCV (RBC) [Entitic vol] 87.2 fL Normal 82.0-98.0 [facility] Comment on above: Performed By: #### L [id number] #### [facility] ([facility]) [address] [place] [address] NRBC (PER 100 WBCS) BY AUTOMATED COUNT 0.0 % Normal 0.0-0.0 [facility] Comment on above: Performed By: #### L [id number] #### [facility] ([facility]) [address] [place] [place] [address] PLATELETS (10*3/UL) IN BLOOD AUTOMATED COUNT 98 10*3/uL Low 150-400 [facility] Comment on above: Performed By: #### L [id number] #### [facility] [address] [place] [address] RBC (Bld) [#/Vol] 4.13 10*6/uL Low 4.20-5.70 [facility] Comment on above: Performed By: #### L [id number] #### [facility] ([facility]) [address] [place] [address] WBC (Bld) [#/Vol] 3.69 10*3/uL Low 4.00-10.60 [facility] Comment on above: Performed By: #### L [id number] #### [facility] ([facility]) [address] [place] [address] DSon 08-20-2022 DS ------ -- Attestation signed by Lazaro Pickard MD at 09/03/2022 6:07 PM Attending Physician Statement I have discussed the case, including pertinent history and exam findings with Dr. Covarrubias, surgical processor and have personally seen the patient. I agree with the assessment, plan and orders as documented. [phone] pager [phone] phone -- [facility] General Surgery DISCHARGE SUMMARY Admission Admitted 08/18/2022 for bowel obstruction Discharge Diagnosis SBO (small bowel obstruction) ([facility]) Discharge Disposition Home or Self Care Discharge Medications Your medication list START taking these medications Instructions Last Dose Given Next Dose Due acetaminophen 325 mg tablet Commonly known as: Tylenol Take 1.5 tablets (487.5 mg) by mouth every 6 (six) hours if needed for mild pain (1-3 pain score) or moderate pain (4-7 pain score) for up to 5 days. CONTINUE taking these medications Instructions Last Dose Given Next Dose Due aspirin 81 mg EC tablet atorvastatin 10 mg tablet Commonly known as: Lipitor B complex-vitamin C-folic acid 1 mg capsule Commonly known as: Nephrocaps D3-5000 125 MCG (5000 UT) capsule Generic drug: cholecalciferol ferrous sulfate 325 (65 Fe) MG tablet folic acid 1 mg tablet Commonly known as: Folvite gabapentin 300 mg capsule Commonly known as: Neurontin ibuprofen 800 mg tablet isosorbide mononitrate ER 60 mg 24 hr tablet Commonly known as: Imdur lisinopril 5 mg tablet magnesium oxide 400 mg tablet Commonly known as: Mag-Ox metFORMIN (MOD) 1,000 mg 24 hr tablet Commonly known as: Glumetza metoprolol succinate XL 25 mg 24 hr tablet Commonly known as: Toprol-XL multivitamin tablet multivitamin with minerals tablet naproxen 250 mg tablet Commonly known as: Naprosyn [facility] ORAL omega-3 acid ethyl esters 1 gram capsule Commonly known as: Lovaza ondansetron 4 mg tablet Commonly known as: Zofran pantoprazole 20 mg EC tablet Commonly known as: ProtoNix ranolazine 500 mg 12 hr tablet Commonly known as: Ranexa SITagliptin phosphate 100 mg tablet Commonly known as: Januvia sucralfate 1 gram tablet Commonly known as: Carafate TAMSULOSIN ORAL Tresiba FlexTouch U-200 200 unit/mL (3 mL) injection Generic drug: insulin degludec venlafaxine XR 150 mg 24 hr capsule Commonly known as: Effexor-XR Where to Get Your Medications You can get these medications from any pharmacy Bring a paper prescription for each of these medications acetaminophen 325 mg tablet Activity Showering instructions: Okay for showering Diet Low fiber diet until follow-up Allergies Hydromorphone, Dronabinol, and Hydromorphone (bulk) Hospital Course Elsa Espinoza is a 67 y.o. male w/ PMH of h/o CAD s/p CABG, DM, HTN, HLD, pancreatitis who presents to [facility] as a transfer from [facility] for evaluation of SBO on 08/18. CT abdomen and pelvis revealed moderate to high-grade small bowel obstruction just proximal to the level of the ileocolic anastomosis in the right anterior abdomen. On admission, patient was managed conservatively with NPO, IVF, pain/antiemetic control, and NGT placement. On inpatient day 2, patient's NGT was clamped and he was started on CLD. NGT was eventually removed. On IP 3, patient had multiple bowel movements and was tolerating a regular diet. He did not have any abdominal pain. Patient was discharged on 08/20 to home with follow-up with Dr. Pickard in 1 week. Pertinent Physical Exam At Time of Discharge Physical Exam General Appearance: Awake, Alert & Oriented x3, No Acute Distress Neck: Trachea Midline, No jugular venous distension Pulmonary: Unlabored breathing on room air. No expiratory wheeze. Cardiac: Regular rate Abdomen: Soft, non-tender, minimally distension, no guarding, no rebound tenderness Extremity: No edema Bilateral Upper and lower Extremities Skin: warm and dry without rash Eyes: no scleral icterus Lines, Drains, Tubes: NG tube removed, PIV Lab Results Labs Reviewed BASIC METABOLIC PANEL - Abnormal Result Value Sodium 138 Potassium 4.4 Chloride 99 CO2 31 BUN 16 Creatinine 0.91 Glucose 139 (*) Calcium 8.9 Anion Gap 8 eGFR 87.5 BUN/Creatinine Ratio 17.58 MAGNESIUM - Abnormal Magnesium 1.6 (*) CBC WITH AUTO DIFFERENTIAL - Abnormal Auto WBC 5.95 RBC 5.04 Hemoglobin 14.5 Hematocrit 43.3 MCV 85.9 MCH 28.8 MCHC 33.5 RDW 14.0 Neutrophils Relative 84.9 (*) Lymphocytes Relative 6.7 (*) Monocytes Relative 7.7 Eosinophils Relative 0.2 Basophils Relative 0.2 Neutrophils Absolute 5.05 Lymphocytes Absolute 0.40 (*) Monocytes Absolute 0.46 Eosinophils Absolute 0.01 Basophils Absolute 0.01 Platel (more content not included)... Normal [facility] MAGNESIUMon 08-20-2022 Magnesium [Mass/Vol] 1.9 mg/dL Normal 1.9-2.7 [facility] Comment on above: Performed By: #### L [id number] #### [facility] ([facility]) [address] [place] [address] MANUAL DIFFERENTIALon 2021 BASOPHILS (10*3/UL) IN BLOOD BY CALCULATION 0.01 10*3/uL Normal [facility] Comment on above: Performed By: #### L [id number] #### [facility] ([facility]) [address] [place] [address] BASOPHILS/100 LEUKOCYTES IN BLOOD BY AUTOMATED COUNT 0.3 % Normal 0.0-1.0 [facility] Comment on above: Performed By: #### L [id number] #### [facility] ([facility]) [address] [place] [address] EOSINOPHILS (10*3/UL) IN BLOOD BY CALCULATION 0.13 10*3/uL Normal [facility] Comment on above: Performed By: #### L [id number] #### [facility] ([facility]) [address] [place] [address] EOSINOPHILS/100 LEUKOCYTES IN BLOOD BY AUTOMATED COUNT 3.5 % Normal 0.0-6.0 [facility] Comment on above: Performed By: #### L [id number] #### [facility] ([facility]) [address] [place] [address] IMMATURE GRANULOCYTES (10*3/UL) IN BLOOD BY CALCULATION 0.01 Normal [facility] Comment on above: Performed By: #### L [id number] #### [facility] ([facility]) [address] [place] [address] IMMATURE GRANULOCYTES/100 LEUKOCYTES IN BLOOD BY AUTOMATED COUNT 0.3 % Normal 0.0-1.0 [facility] Comment on above: Performed By: #### L [id number] #### [facility] ([facility]) [address] [place] [address] LYMPHOCYTES (10*3/UL) IN BLOOD BY CALCULATION 0.41 10*3/uL Low 1.20-4.00 [facility] Comment on above: Performed By: #### L [id number] #### [facility] ([facility]) [address] [place] [address] LYMPHOCYTES/100 LEUKOCYTES IN BLOOD BY AUTOMATED COUNT 11.1 % Low 20.0-45.0 [facility] Comment on above: Performed By: #### L [id number] #### [facility] [address] [place] [address] MONOCYTES (10*3/UL) IN BLOOD BY CALCUATION 0.44 10*3/uL Normal [facility] Comment on above: Performed By: #### L [id number] #### [facility] [address] [place] [address] MONOCYTES/100 LEUKOCYTES IN BLOOD BY AUTOMATED COUNT 11.9 % Normal 5.0-12.0 [facility] Comment on above: Performed By: #### L [id number] #### [facility] ([facility]) [address] [place] [address] NEUTROPHILS (10*3/UL) IN BLOOD BY CALCULATION 2.7 10*3/uL Normal 1.6-7.6 [facility] Comment on above: Performed By: #### L [id number] #### [facility] ([facility]) [address] [place] [address] NEUTROPHILS/100 LEUKOCYTES IN BLOOD BY AUTOMATED COUNT 72.9 % High 40.0-72.0 [facility] Comment on above: Performed By: #### L [id number] #### [facility] ([facility] [address] [place] [address] PHOSPHORUSon 08-20-2022 Magnesium [Mass/Vol] 1.8 mg/dL Low 2.5-5.0 [facility] Comment on above: Performed By: #### L [id number] #### [facility] ([facility] [address] [place] [address] 30on 08-19-2022 30 The patient is Moder ately Stable - Low risk of patient condition declining or worsening Problem: Pain - Adult Goal: Verbalizes/displays adequate comfort level or baseline comfort level Outcome: Progressing Problem: Safety - Adult Goal: Free from fall injury Outcome: Progressing Problem: Discharge Planning Goal: Discharge to home or other facility with appropriate resources Outcome: Progressing Problem: Chronic Conditions and Co-morbidities Goal: Patient's chronic conditions and co-morbidity symptoms are monitored and maintained or improved Outcome: Progressing The patient's goals for the shift include comfort The clinical goals for the shift include comfort Normal [facility] 30 Problem: Pain - Adul t Goal: Verbalizes/displays adequate comfort level or baseline comfort level Outcome: Progressing Problem: Safety - Adult Goal: Free from fall injury Outcome: Progressing Problem: Chronic Conditions and Co-morbidities Goal: Patient's chronic conditions and co-morbidity symptoms are monitored and maintained or improved Outcome: Progressing The patient is Moderately Stable - Low risk of patient condition declining or worsening The patient's goals for the shift include comfort The clinical goals for the shift include comfort Over the shift, the patient did not make progress toward the following goals. Barriers to progression include nausea. Recommendations to address these barriers include monitor I&O, manage nausea. Normal [facility] BASIC METABOLIC PANELon 12-1 Anion gap [Moles/Vol] 8 mmol/L Normal 7-20 [facility] Comment on above: Performed By: #### L [id number] ####[facility] ([facility])[address] [place] [address] Calcium [Mass/Vol] 8.9 mg/dL Normal 8.6-10.3 [facility] Comment on above: Performed By: #### L [id number] ####[facility] (BEAKER)[address] [place] [address] Chloride [Moles/Vol] 99 mmol/L Normal 98-107 [facility] Comment on above: Performed By: #### L [id number] ####[facility] (BEAKER)[address] [place] [address] CO2 [Moles/Vol] 31 mmol/L Normal 21-31 [facility] Comment on above: Performed By: #### L [id number] ####[facility] (BEAKER)[address] [place] [address] Creatinine [Mass/Vol] 0.91 mg/dL Normal 0.70-1.30 [facility] Comment on above: Performed By: #### L [id number] ####[facility] ([facility])[address] [place] [address] GLOMERULAR FILTRATION RATE ML/MIN/1.73 SQ M.PREDICTED 87.5 mL/min/1.73m*2 Normal >60.0 [facility] Comment on above: Result Comment: The [facility]???s estimated glomerular filtration rate (eGFR) will no longer include consideration of race in its calculation. The National Kidney Foundation???s eGFR Task Force developed new recommendations for the estimation of the glomerular filtration rate in the [place] They recommend immediate implementation of the new equation refit without the race variable in all laboratories because the calculation does not include race. In addition to not including race in the calculation and reporting, it included diversity in its development, and has acceptable performance characteristics and potential consequences that do not disproportionately affect any one group of individuals. Performed By: #### L [id number] ####[facility] ([facility])[address] [place] [address] Glucose [Mass/Vol] 139 mg/dL High 70-100 [facility] Comment on above: Performed By: #### L [id number] ####[facility] ([facility])[address] [place] [address] Potassium [Moles/Vol] 4.4 mmol/L Normal 3.5-5.1 [facility] Comment on above: Performed By: #### L [id number] ####[facility] ([facility])[address] [place] [address] Sodium [Moles/Vol] 138 mmol/L Normal 136-145 [facility] Comment on above: Performed By: #### L [id number] ####[facility] ([facility] [place] [address] Urea nitrogen [Mass/Vol] 16 mg/dL Normal 7-25 [facility] Comment on above: Performed By: #### L [id number] ####[facility] ([facility])[address] [place] [address] UREA NITROGEN/CREATININE (MASS RATIO) IN SER/PLAS 17.58 Normal [facility] Comment on above: Performed By: #### L [id number] ####[facility] ([facility]ER)[address] [place] [address] CBC WITH AUTO DIFFERENTIALon 08-19-2022 Basophils (Bld) [#/Vol] 0.01 10*3/uL Normal 0.00-0.20 [facility] Comment on above: Performed By: #### L [id number] ####[facility] ([facility]AKER)[address] [place] [address] Basophils/100 WBC (Bld) 0.2 % Normal 0.0-1.0 [facility] Comment on above: Performed By: #### L [id number] ####[facility] (BEAKER)[address] [place] [address] Eosinophils (Bld) [#/Vol] 0.01 10*3/uL Normal 0.00-0.50 [facility] Comment on above: Performed By: #### L [id number] ####[facility] (BEAKER)[address] [place] [address] Eosinophils/100 WBC (Bld) 0.2 % Normal 0.0-6.0 [facility] Comment on above: Performed By: #### L [id number] ####[facility] (BEAKER)[address] [place] [address] ERYTHROCYTE DISTRIBUTION WIDTH (RATIO) STANDARD DEVIATION 43.2 Normal [facility] Comment on above: Performed By: #### L [id number] ####[facility] (BEAKER)[address] [place] [address] Erythrocyte distribution width (RBC) [Ratio] 14.0 % Normal 11.5-15.0 [facility] Comment on above: Performed By: #### L [id number] ####[facility] (BEAKER)[address] [place] [address] ERYTHROCYTE MEAN CORPUSCULAR HEMOGLOBIN CONCENTRATION (G/DL) BY AUTOMATED 33.5 g/dL Normal 32.0-35.0 [facility] Comment on above: Performed By: #### L [id number] ####[facility] (BEAKER)[address] [place] [address] Hematocrit (Bld) [Volume fraction] 43.3 % Normal 39.0-55.0 [facility] Comment on above: Performed By: #### L [id number] ####[facility] (BEAKER)[address] [place] [address] Hemoglobin (Bld) [Mass/Vol] 14.5 g/dL Normal 13.0-17.0 [facility] Comment on above: Performed By: #### L [id number] ####[facility] (BEAKER)[address] [place] [address] Immature granulocytes (Bld) [#/Vol] 0.02 10*3/uL Normal 0.00-0.20 [facility] Comment on above: Performed By: #### L [id number] ####[facility] (BEAKER)[address] [place] [address] Immature granulocytes/100 WBC (Bld) 0.3 % Normal 0.0-1.0 [facility] Comment on above: Performed By: #### L [id number] ####[facility] (BEAKER)[address] [place] [address] Lymphocytes (Bld) [#/Vol] 0.40 10*3/uL Low 1.20-4.00 [facility] Comment on above: Performed By: #### L [id number] ####[facility] (BEAKER)[address] [place] [address] Lymphocytes/100 WBC (Bld) 6.7 % Low 20.0-45.0 [facility] Comment on above: Performed By: #### L [id number] ####[facility] (BEAKER)[address] [place] [address] MCH (RBC) [Entitic mass] 28.8 pg Normal 27.0-33.0 [facility] Comment on above: Performed By: #### L [id number] ####[facility] (BEAKER)[address] [place] [address] MCV (RBC) [Entitic vol] 85.9 fL Normal 82.0-98.0 [facility] Comment on above: Performed By: #### L [id number] ####[facility] [place] [address] Monocytes (Bld) [#/Vol] 0.46 10*3/uL Normal 0.10-1.00 [facility] Comment on above: Performed By: #### L [id number] ####[facility] ([facility])[address] [place] [address] Monocytes/100 WBC (Bld) 7.7 % Normal 5.0-12.0 [facility] Comment on above: Performed By: #### L [id number] ####[facility] ([facility])[address] [place] [address] Neutrophils (Bld) [#/Vol] 5.05 10*3/uL Normal 1.60-7.60 [facility] Comment on above: Performed By: #### L [id number] ####[facility] ([facility])[address] [place] [address] Neutrophils/100 WBC (Bld) 84.9 % High 40.0-72.0 [facility] Comment on above: Performed By: #### L [id number] ####[facility] ([facility])[address] [place] [address] NRBC (PER 100 WBCS) BY AUTOMATED COUNT 0.0 % Normal 0.0-0.0 [facility] Comment on above: Performed By: #### L [id number] ####[facility] [place] [address] PLATELETS (10*3/UL) IN BLOOD AUTOMATED COUNT 134 10*3/uL Low 150-400 [facility] Comment on above: Performed By: #### L [id number] ####[facility] ([facility] [place] [address] RBC (Bld) [#/Vol] 5.04 10*6/uL Normal 4.20-5.70 [facility] Comment on above: Performed By: #### L [id number] ####[facility] (BEAKER)[address] [place] [address] WBC (Bld) [#/Vol] 5.95 10*3/uL Normal 4.00-10.60 [facility] Comment on above: Performed By: #### L [id number] ####[facility] ([facility])[address] [place] [address] MAGNESIUMon 08-19-2022 Magnesium [Mass/Vol] 1.6 mg/dL Low 1.9-2.7 [facility] Comment on above: Performed By: #### L [id number] #### [facility] ([facility]) [address] [place] [address] PHOSPHORUSon 08-19-2022 Magnesium [Mass/Vol] 4.7 mg/dL Normal 2.5-5.0 [facility] Comment on above: Performed By: #### L [id number] #### [facility] ([facility]) [address] [place] [address] CBC AUTO DIFFon 08-18-2022 BASO # 0.0 103/ul Normal 0.0-0.1 [facility] Comment on above: Performed By: #### C VDTBH #### [facility] [address] [place] [address] Dr. Miladys Samuel Basophils/100 WBC (Bld) 0.2 % Normal 0.2-2.0 [facility] Comment on above: Performed By: #### C VDTBH #### [facility] [address] [address] [address] Miladys Samuel EO # 0.1 103/ul Normal 0.0-0.7 [facility] Comment on above: Performed By: #### C VDTBH #### [facility] [address] [place] [address] Dr. Miladys Samuel Eosinophils/100 WBC (Bld) 1.2 % Normal 0.9-7.0 [facility] Comment on above: Performed By: #### C VDTBH #### [facility] [address] [place] [address] Dr. Miladys Samuel Erythrocyte distribution width (RBC) [Ratio] 13.5 % Normal 11.0-15.0 [facility] Comment on above: Performed By: #### C VDTBH #### [facility] [address] [place] [address] Dr. Miladys Samuel Hematocrit (Bld) [Volume fraction] 46.0 % Normal 42.0-54.0 [facility] Comment on above: Performed By: #### C VDTBH #### [facility] [address] [place] [address] Dr. Miladys Samuel Hemoglobin (Bld) [Mass/Vol] 15.3 g/dL Normal 14.0-18.0 [facility] Comment on above: Performed By: #### C VDTBH #### [facility] [address] [place] [address] Dr. Miladys Samuel IG # 0.02 10e3/ul Normal 0.00-0.03 [facility] Comment on above: Performed By: #### C VDTBH #### [facility] [address] [place] [address] Dr. Miladys Samuel IG % 0.2 % Normal 0.0-0.5 [facility] Comment on above: Performed By: #### C VDTBH #### [facility] [address] [place] [address] Dr. Miladys Samuel LYMPH # 0.7 103/ul Critically low 1.2-3.8 [facility] Comment on above: Performed By: #### C VDTBH #### [facility] [address] [place] [address] Dr. Miladys Samuel Lymphocytes/100 WBC (Bld) 8.0 % Critically low 20.5-60.0 [facility] Comment on above: Performed By: #### C VDTBH #### [facility] [address] [place] [address] Dr. Miladys Samuel MANUAL DIFF REQ NO Normal [facility] Comment on above: Performed By: #### C VDTBH #### [facility] [address] [address] [address] Miladys Samuel MCH (RBC) [Entitic mass] 27.9 pg Normal 25.9-34.0 [facility] Comment on above: Performed By: #### C VDTBH #### [facility] [address] [address] [address] Miladys Samuel MCHC (RBC) [Mass/Vol] 33.3 g/dL Normal 29.9-35.2 [facility] Comment on above: Performed By: #### C VDTBH #### [facility] [address] [place] [address] Dr. Miladys Samuel MCV (RBC) [Entitic vol] 83.9 fL Normal 80.0-94.0 [facility] Comment on above: Performed By: #### C VDTBH #### [facility] [address] [place] [address] Dr. Miladys Samuel MONO # 0.5 103/ul Normal 0.3-0.8 [facility] Comment on above: Performed By: #### C VDTBH #### [facility] [address] [address] [address] Miladys Samuel Monocytes/100 WBC (Bld) 5.5 % Normal 1.7-12.0 [facility] Comment on above: Performed By: #### C VDTBH #### [facility] [address] [place] [address] Dr. Miladys Samuel NEUT # 7.1 103/ul Critically high 1.4-6.5 [facility] Comment on above: Performed By: #### C VDTBH #### [facility] [address] [address] [address] Miladys Samuel Neutrophils/100 WBC (Bld) 84.9 % Critically high 43.0-75.0 [facility] Comment on above: Performed By: #### C VDTBH #### [facility] [address] [place] [address] Dr. Miladys Samuel Platelet mean volume (Bld) [Entitic vol] 10.1 fL Normal 9.5-13.5 [facility] Comment on above: Performed By: #### C VDTBH #### [facility] [address] [place], [place] [address] Dr. Miladys Samuel PLT 154 103/ul Normal 150-450 [facility] Comment on above: Performed By: #### C VDTBH #### [facility] [address] [place], [place] [address] Dr. Miladys Samuel RBC 5.48 106/ul Normal 4.70-6.10 [facility] Comment on above: Performed By: #### C VDTBH #### [facility] [address] [place], [place] [address] Dr. Miladys Samuel WBC 8.4 103/ul Normal 4.0-11.0 [facility] Comment on above: Performed By: #### C VDTBH #### [facility] [address] [place], [place] [address] ABD/PELV W CONon 08-18-[address] ABD/PELV W CON CT ABD/PELV W CON CLINICAL: Generalized abdominal pain for 2 days. Concern for possible bowel obstruction. Prior history of surgery for obstruction per prior radiographic report COMPARISON: 06/14/2021 and 12/17/2020 TECHNIQUE: High-resolution axial images were obtained from diaphragms to pubic symphysis after administration of IV contrast. Dose reduction: mA and/or kV are were adjusted by automated exposure control software based upon patients height and weight. FINDINGS: Lung bases show pleural based densities consistent with atelectasis or scarring, most prominent at the posterior left base and similar to 06/14/2021. No significant pleural effusion. The liver shows a benign-appearing cyst of 1.5 cm at the inferomedial right hepatic lobe. Gallbladder is absent. No acute biliary obstruction is seen. Spleen is unremarkable. As on the prior study, there is atrophy of the pancreatic body and tail with mild associated pancreatic ductal dilation up to 3 mm, not significantly changed. Adrenal glands are unremarkable. Both kidneys show punctate nonobstructing calculi in the renal sinuses, largest on the right measuring 8 mm, with additional low density renal cortical lesions consistent with cysts. A septated cyst of 2.1 cm in the mid left renal cortex is not significantly changed. No hydroureteronephrosis, urinary bladder or ureteral calculus on either side. Consistent with clinical suspicion and similar to the prior study of 06/14/2021, there are dilated small bowel loops extending from the jejunum to what appears to be an ileocolic anastomosis in the anterior right abdomen status post right hemicolectomy, with relative decompression of the large bowel distal to the anastomosis. Focal narrowing of the distal small bowel just proximal to the anastomosis is seen on axial series 4 image 84, and there is fecalization of small bowel contents proximal to this level, consistent with delayed transit. Small bowel loops show mucosal enhancement and mild thickening with surrounding edema and a small amount of fluid along the central mesenteric peritoneal reflections. Right lower quadrant bowel loops are dilated up to 4 cm. No evidence of loculated fluid collection to indicate an abscess. Prior right-sided iliacus abscess seen on the study of 06/14/2021 no longer shows a central fluid component, however there is asymmetric thickening of the iliacus muscle at this level (series 4 image 104). Osseous structures show no acute traumatic or destructive lesion. IMPRESSION: 1. Findings consistent with moderate to high-grade small bowel obstruction just proximal to the level of the ileocolic anastomosis in the right anterior abdomen. There is focal narrowing of the bowel just proximal to the anastomosis (axial series 4 image 84) in a location similar to prior study of 06/14/2021, which may reflect an adhesion in this location. The upstream small bowel loops are dilated up to 4 cm and show edematous mucosa and fecalization of small bowel contents, with surrounding fluid and induration in the central mesentery. 2. No evidence of free air or extraluminal gas to indicate perforation. No loculated fluid collection to indicate an abscess. Prior right iliacus abscess seen on the study of 06/14/2021 now shows thickening of the iliacus muscle and adjacent peritoneal reflections without discrete fluid collection. 3. Stable atrophy of the pancreatic tail with mild distal pancreatic ductal dilation. Stable benign-appearing hepatic cyst. Stable nonobstructing renal calculi and benign-appearing renal cysts. Electronically authenticated by: MARY HOGAN Date: 2022-08-18 12:02 Normal [facility] EDNURSon 08-18-2022 EDNURS Pt here from [facility] for SBO. Pt has IV. Normal [facility] EDPROVon 08-18-2022 EDPROV [facility] [id number] EMERGENCY DEPARTMENT ENCOUNTER CHIEF COMPLAINT Chief Complaint Patient presents with Abdominal Pain GI Problem HISTORY OF PRESENT ILLNESS 67 y/o male with a h/o CAD s/p CABG, DM, HTN, HLD, pancreatitis presents to the ED as a transfer from [facility] for evaluation of SBO. Pt reports he began having diffuse abd pain last night. Pt denies nausea, vomiting, diarrhea. Pt reports his last BM was around 1999 last night. Pt denies fevers, chills, CP, SOB. Pt admits to h/o prior SBO and many abdominal surgeries. REVIEW OF SYSTEMS Review of Systems Constitutional: Negative for chills and fever. HENT: Negative for congestion and sore throat. Eyes: Negative for redness. Respiratory: Negative for cough and shortness of breath. Cardiovascular: Negative for chest pain and palpitations. Gastrointestinal: Negative for abdominal pain, diarrhea, nausea and vomiting. Genitourinary: Negative for dysuria and frequency. Musculoskeletal: Negative for back pain and neck pain. Skin: Negative for rash. Neurological: Negative for syncope and headaches. Psychiatric/Behavioral: Negative for confusion and hallucinations. All other systems reviewed and are negative. PAST MEDICAL HISTORY has no past medical history on file. SURGICAL HISTORY has a past surgical history that includes CT guided percutaneous peritoneal or retroperitoneal fluid collection drainage (08/22/2018). CURRENT MEDICATIONS Previous Medications No medications on file ALLERGIES is allergic to hydromorphone, dronabinol, and hydromorphone (bulk). FAMILY HISTORY has no family status information on file. family history is not on file. SOCIAL HISTORY reports that he has never smoked. He has never used smokeless tobacco. He reports current alcohol use. He reports that he does not use drugs. PHYSICIAL EXAM INITIAL VITALS: height is 1.803 m (5' 11 ) and weight is 77.1 kg (170 lb). His temperature is 36.8 ???C (98.2 ???F). His blood pressure is 135/71 and his pulse is 68. His respiration is 18 and oxygen saturation is 93%. Physical Exam Vitals reviewed. Constitutional: General: He is not in acute distress. Appearance: Normal appearance. He is not ill-appearing or toxic-appearing. HENT: Head: Normocephalic and atraumatic. Mouth/Throat: Mouth: Mucous membranes are moist. Eyes: Conjunctiva/sclera: Conjunctivae normal. Cardiovascular: Rate and Rhythm: Normal rate and regular rhythm. Heart sounds: Normal heart sounds. Pulmonary: Effort: Pulmonary effort is normal. No respiratory distress. Breath sounds: Normal breath sounds. Chest: Chest wall: No tenderness. Abdominal: General: Bowel sounds are decreased. Palpations: Abdomen is soft. Tenderness: There is abdominal tenderness (diffusely). Musculoskeletal: General: No tenderness. Normal range of motion. Cervical back: Normal range of motion and neck supple. No tenderness. Skin: General: Skin is warm and dry. Neurological: General: No focal deficit present. Mental Status: He is alert and oriented to person, place, and time. Gait: Gait is intact. Gait normal. Psychiatric: Mood and Affect: Mood normal. Behavior: Behavior normal. DIAGNOSTIC RESULTS EKG: Not indicated RADIOLOGY: Reviewed CTAP from OSH LABS: Reviewed labs from OSH Labs Reviewed LACTIC ACID WITH 4 HOUR REFLEX POCT SARS COV2 ANTIGEN EMERGENCY DEPARMENT COURSE Vitals: Vitals: 08/18/22 1710 08/18/22 1725 08/18/22 1857 08/18/22 1927 BP: 124/66 129/69 131/70 135/71 BP Location: Patient Position: Pulse: Resp: Temp: SpO2: 95% 97% 95% 93% Weight: Height: BP: 135/71, Temp: 36.8 ???C (98.2 ???F), , Heart Rate: 68, Resp: 18 ED Course as of 08/18/222021 Sat Aug 18, 2022 1610 Sent by [facility] [place] [facility] accepted by Dr. Pickard for general surgery admission. [WS] 5448 Reviewed records sent with patient from outside facility. CT abdomen and pelvis revealed moderate to high-grade small bowel obstruction just proximal to the level of the ileocolic anastomosis in the right anterior abdomen, no free air or extraluminal gas to indicate perforation. Lipase within normal limits. CMP with slightly elevated ALT and AST. CBC unremarkable. [JS] 1797 Discussed the case with gen surg who will evaluate the pt [JS] 1757 Surg reports they will be admitting the pt [JS] ED Course User Index [JS] JUAN MIGUEL Ramos [WS] Leo Allred MD Diagnoses as of 08/18/222021 SBO (small bowel obstruction) (CMS/HCC) CONSULTS: General surgery PROCEDURES: NG tube placement per RN DIFFERENTIAL DIAGNOSIS / MDM / DISPOSITION / PLAN This patient is a 67-year-old male who presented to the emergency department as a transfer from outside hospital for small bowel obstruction. This patient was accepted in transfer by general surgeon Dr. Pickard. Labs and imag (more content not included)... Normal [facility] EDPROV HPI Chief Complaint Patient presents with Abdominal Pain GI Problem Patient sent by [facility] for admission to general surgery for SBO. Pt accepted by Dr. Pickard [place] Coma Scale Score: 15 Patient History History reviewed. No pertinent past medical history. Past Surgical History: Procedure Laterality Date CT GUIDED PERCUTANEOUS PERITONEAL OR RETROPERITONEAL FLUID COLLECTION DRAINAGE 08/22/2018 CT GUIDED PERCUTANEOUS PERITONEAL OR RETROPERITONEAL FLUID COLLECTION DRAINAGE VARMA CONVERSION No family history on file. Social History Tobacco Use Smoking status: Never Smokeless tobacco: Never Vaping Use Vaping Use: Never used Substance Use Topics Alcohol use: Yes Drug use: Never Review of Systems Review of Systems Constitutional: Negative. HENT: Negative. Eyes: Negative. Respiratory: Negative. Cardiovascular: Negative. Gastrointestinal: Positive for abdominal pain, nausea and vomiting. Endocrine: Negative. Genitourinary: Negative. Musculoskeletal: Negative. Skin: Negative. Allergic/Immunologic: Negative. Neurological: Negative. Hematological: Negative. Psychiatric/Behavioral: Negative. All other systems reviewed and are negative. Physical Exam ED Triage Vitals [08/18/22 1605] Temp Heart Rate Resp BP 36.8 ???C (98.2 ???F) 68 18 112/63 SpO2 Temp src Heart Rate Source Patient Position 97 % -- Monitor Sitting BP Location FiO2 (%) Left arm -- Physical Exam Constitutional: Appearance: He is well-developed. HENT: Head: Normocephalic and atraumatic. Nose: Nose normal. Mouth/Throat: Mouth: Mucous membranes are moist. Eyes: Conjunctiva/sclera: Conjunctivae normal. Pupils: Pupils are equal, round, and reactive to light. Neck: Thyroid: No thyromegaly. Vascular: No JVD. Cardiovascular: Rate and Rhythm: Normal rate and regular rhythm. Pulmonary: Effort: Pulmonary effort is normal. Breath sounds: Normal breath sounds. Abdominal: Palpations: Abdomen is soft. Tenderness: There is abdominal tenderness. Musculoskeletal: General: Normal range of motion. Cervical back: Normal range of motion and neck supple. Skin: General: Skin is warm. Neurological: General: No focal deficit present. Mental Status: He is alert and oriented to person, place, and time. Mental status is at baseline. Procedures ED Course & MDM ED Course as of 08/20/22 0958 Sat Aug 18, 2022 1610 Sent by [facility] accepted by Dr. Pickard for general surgery admission. [WS] 1628 Reviewed records sent with patient from outside facility. CT abdomen and pelvis revealed moderate to high-grade small bowel obstruction just proximal to the level of the ileocolic anastomosis in the right anterior abdomen, no free air or extraluminal gas to indicate perforation. Lipase within normal limits. CMP with slightly elevated ALT and AST. CBC unremarkable. [JS] 1629 Discussed the case with gen surg who will evaluate the pt [JS] 1757 Surg reports they will be admitting the pt [JS] ED Course User Index [JS] JUAN MIGUEL Ramos [WS] Leo Allred MD Diagnoses as of 08/20/22957 SBO (small bowel obstruction) ([facility]) [facility] Attestion Leo Allred MD 08/20/22958 Normal [facility] HPon 08-18-2022 ------ -- Attestation signed by Lazaro Pickard MD at 08/22/2022 1:27 PM Attending Physician Statement I have discussed the case, including pertinent history and exam findings with Dr. Covarrubias, surgical processor and have personally seen the patient. I agree with the assessment, plan and orders as documented. [phone] pager [phone] phone -- [facility] General Surgery HISTORY & PHYSICAL Reason for Admission: SBO History of Present Illness: Elsa Espinoza is a 67 y.o. male w/ PMH of h/o CAD s/p CABG, DM, HTN, HLD, pancreatitis who presents to [facility] as a transfer from [facility] for evaluation of SBO. atient has a surgical history of cholecystectomy, appendectomy, CABG, small bowel resection w/ ileosotomy, and subsequent ileostomy reversal. Patient has had multiple prior episodes of SBO most recently 2 years ago which was managed non-conservatively. This episode began late last night. Patient states that he was having loose stools and passing gas yesterday night. He denies any nausea or vomiting. He was tolerating a diet yesterday night. CT abdomen and pelvis revealed moderate to high-grade small bowel obstruction just proximal to the level of the ileocolic anastomosis in the right anterior abdomen. Review of Systems Constitutional: Negative for chills and fever. Respiratory: Negative for chest tightness and shortness of breath. Cardiovascular: Negative for chest pain. Gastrointestinal: Positive for abdominal pain. Negative for abdominal distention, constipation, diarrhea, nausea and vomiting. Genitourinary: Negative for difficulty urinating. Musculoskeletal: Negative for arthralgias and myalgias. Skin: Negative. Neurological: Negative for dizziness and headaches. Hematological: Negative. Psychiatric/Behavioral: Negative for agitation and confusion. History reviewed. No pertinent past medical history. Past Surgical History: Procedure Laterality Date CT GUIDED PERCUTANEOUS PERITONEAL OR RETROPERITONEAL FLUID COLLECTION DRAINAGE 08/22/2018 CT GUIDED PERCUTANEOUS PERITONEAL OR RETROPERITONEAL FLUID COLLECTION DRAINAGE VARMA CONVERSION Allergies Allergen Reactions Hydromorphone Anaphylaxis Dronabinol Hallucinations and Other Other reaction(s): Mental Status Change Confused Hydromorphone (Bulk) Other reaction(s): Other: See Comments Patient says he coded Current Facility-Administered Medications: [START ON 08/19/2022] enoxaparin (Lovenox) syringe 40 mg, 40 mg, subcutaneous, Daily, JUAN MIGUEL Patel lactated Ringer's infusion, 100 mL/hr, intravenous, Continuous, JUAN MIGUEL Patel ondansetron ODT (Zofran-ODT) disintegrating tablet 4 mg, 4 mg, oral, q8h PRN OR ondansetron HCl (PF) (Zofran) injection 4 mg, 4 mg, intravenous, q6h PRN, JUAN MIGUEL Patel [COMPLETED] Insert peripheral IV, , , Once AND [COMPLETED] Saline lock IV, , , Once AND sodium chloride flush 10 mL, 10 mL, intravenous, q8h PRN, JUAN MIGUEL Patel No current outpatient medications on file. Social History Socioeconomic History Marital status: Spouse name: Not on file Number of children: Not on file Years of education: Not on file Highest education level: Not on file Occupational History Not on file Tobacco Use Smoking status: Never Smokeless tobacco: Never Vaping Use Vaping Use: Never used Substance and Sexual Activity Alcohol use: Yes Drug use: Never Sexual activity: Not on file Other Topics Concern Not on file Social History Narrative Not on file Social Determinants of Health Financial Resource Strain: Not on file Food Insecurity: Not on file Transportation Needs: Not on file Physical Activity: Not on file Stress: Not on file Social Connections: Not on file Intimate Partner Violence: Not on file Housing Stability: Not on file No family history on file. Physical Exam Constitutional: General: He is not in acute distress. HENT: Head: Normocephalic and atraumatic. Eyes: Conjunctiva/sclera: Conjunctivae normal. Cardiovascular: Rate and Rhythm: Normal rate and regular rhythm. Pulses: Normal pulses. Pulmonary: Effort: Pulmonary effort is normal. No respiratory distress. Abdominal: General: Abdomen is flat. There is no distension. Palpations: Abdomen is soft. Tenderness: There is abdominal tenderness. Musculoskeletal: General: Normal range of motion. Skin: General: Skin is warm and dry. Neurological: General: No focal deficit present. Mental Status: He is alert and oriented to person, place, and time. Psychiatric: Mood and Affect: Mood normal. Behavior: Behavior normal. Vital Signs: Blood pressure 135/71, pulse 68, temperature 36.8 ???C (98.2 ???F), resp. rate 18, hei (more content not included)... Normal [facility] LACTIC ACID WITH 4 HOUR REFL EXon 08-18-2022 LACTATE (MMOL/L) IN SER/PLAS 1.0 mmol/L Normal 0.5-2.2 [facility] Comment on above: Performed By: #### L [id number] #### [facility] ([facility]) [address] [place] [address] LIPASEon 08-18-2022 Lipase [Catalytic activity/Vol] 290.0 U/L Normal 73.0-393.0 [facility] Comment on above: Performed By: #### A MY #### [facility] [address] [place] [address] Dr. Miladys Samuel PROF 14(COMP METB)on 022 Albumin [Mass/Vol] 4.2 g/dL Normal 3.4-5.0 [facility] Comment on above: Performed By: #### C VDTBH #### [facility] [address] [place] [address] Dr. Miladys Samuel Albumin/Globulin [Mass ratio] 1.2 {ratio} Normal [facility] Comment on above: Performed By: #### C VDTBH #### [facility] [address] [place] [address] Dr. Miladys Samuel ALP [Catalytic activity/Vol] 82 U/L Normal 46-116 [facility] Comment on above: Performed By: #### C VDTBH #### [facility] [address] [place] [address] Dr. Miladys Samuel ALT [Catalytic activity/Vol] 75 U/L Critically high 16-63 [facility] Comment on above: Performed By: #### C VDTBH #### [facility] [address] [place] [address] Dr. Miladys Samuel Anion gap [Moles/Vol] 10.9 mmol/L Normal [facility] Comment on above: Performed By: #### C VDTBH #### [facility] [address] [address] [address] Miladys Samuel AST [Catalytic activity/Vol] 116 U/L Critically high 15-37 [facility] Comment on above: Performed By: #### C VDTBH #### [facility] [address] [place] [address] Dr. Miladys Samuel Bilirubin [Mass/Vol] 0.7 mg/dL Normal 0.2-1.0 [facility] Comment on above: Performed By: #### C VDTBH #### [facility] [address] [place] [address] Dr. Miladys Samuel Calcium [Mass/Vol] 9.5 mg/dL Normal 8.5-10.1 [facility] Comment on above: Performed By: #### C VDTBH #### [facility] [address] [place] [address] Dr. Miladys Samuel Chloride [Moles/Vol] 98 mmol/L Normal 98-107 [facility] Comment on above: Performed By: #### C VDTBH #### [facility] [address] [place] [address] Dr. Miladys Samuel CO2 [Moles/Vol] 31.4 mmol/L Normal 21.0-32.0 [facility] Comment on above: Performed By: #### C VDTBH #### [facility] [address] [place] [address] Dr. Miladys Samuel Creatinine [Mass/Vol] 1.04 mg/dL Normal 0.70-1.30 [facility] Comment on above: Performed By: #### C VDTBH #### [facility] [address] [place] [address] Dr. Miladys Samuel EGFR-AF TAIWANESE >60 Normal >=60 [facility] Comment on above: Performed By: #### C VDTBH #### [facility] [address] [place] [address] Dr. Miladys Samuel EGFR-NON AF TAIWANESE >60 Normal >=60 [facility] Comment on above: Performed By: #### C VDTBH #### [facility] [address] [place] [address] Dr. Miladys Samuel Globulin (S) [Mass/Vol] 3.5 g/dL Normal [facility] Comment on above: Performed By: #### C VDTBH #### [facility] [address] [place] [address] Dr. Miladys Samuel Glucose [Mass/Vol] 181 mg/dL Critically high 74-106 [facility] Comment on above: Performed By: #### C VDTBH #### [facility] [address] [place] [address] Dr. Miladys Samuel Potassium [Moles/Vol] 4.3 mmol/L Normal 3.5-5.1 [facility] Comment on above: Performed By: #### C VDTBH #### [facility] [address] [place] [address] Dr. Miladys Samuel Protein [Mass/Vol] 7.7 g/dL Normal 6.4-8.2 [facility] Comment on above: Performed By: #### C VDTBH #### [facility] [address] [place] [address] Dr. Miladys Samuel Sodium [Moles/Vol] 136 mmol/L Normal 136-145 [facility] Comment on above: Performed By: #### C VDTBH #### [facility] [address] [place] [address] Dr. Miladys Samuel Urea nitrogen [Mass/Vol] 15.0 mg/dL Normal 7.0-18.0 [facility] Comment on above: Performed By: #### C VDTBH #### [facility] [address] [place] [address] Dr. Miladys Samuel Urea nitrogen/Creatinine [Mass ratio] 14.4 mg/mg Normal [facility] Comment on above: Performed By: #### C VDTBH #### [facility] [address] [place] [address] Dr. Miladys Samuel XR Knee Complete Left*on XR Knee Complete Left* HISTORY: Log versus left knee. Generalized pain and swelling. COMPARISON: None RESULT: No acute fracture. No dislocation. No distinct joint effusion. Joint spaces appear maintained. Nonspecific soft tissue edema. Diffuse vascular calcifications. Extensive surgical clips in the medial soft tissues. No other significant abnormality. IMPRESSION: No acute osseous findings. Report reported and signed by Justo Vidal on 02/08/2022 1442 Normal [facility] - Chemistry and C hemistry - challengeon 11-14-2021 Cholesterol [Mass/Vol] 118\S\118 below low threshold 140-200 [facility] 250 DO Work Phone: Comment on above: Chol less than 200 m g/dl low risk Chol 201-239 mg/dl borderline risk Chol 240 mg/dl and greater high risk Cholesterol in LDL [Mass/Vol] 65\S\65 Normal 0-100 [facility] 250 DO Work Phone: Comment on above: LDL ATP III CLASSIFI CATION LDL less than 100 mg/dL Optimal LDL 100-129 mg/dL Near or above optimal LDL 130-159 mg/dL Borderline high LDL 160-189 mg/dL High LDL greater than 189 mg/dL Very high Laboratory - Microbiology an d Antimicrobial susceptibilityon 11-14-2021 SARS-CoV-2 (COVID-19) RNA FELY+probe Ql (Unsp spec) [facility] 250 DO Work Phone: No Panel Informationon 11-14 39.3\S\39.3 above high threshold 25.1-36.5 [facility] 250 DO Work Phone: Comment on above: PERFORMED BY:[place] [address] [address] [place], [place] [phone] MEDICAL DIRECTORJORDANA THACKER M.D. 1.0\S\1.0 Normal [facility] 250 DO Work Phone: Comment on above: INR Therapeutic Rang e A) Pre- and Peroperative OAT started two weeks before surgery. NOT HIP SURGERY: 1.5 - 2.5 HIP SURGERY: 2 - 3 B) Primary and secondary prevention of venous THROMBOSIS: 2 - 3 C) Active venous thrombosis, pulmonary embolism and prevention of recurrent venous thrombosis: 2 - 3 D) Prevention of arterial thromboembolism including patients with mechanical heart valves: 3 - 4.5 11.5\S\11.5 Normal 9.0-12.9 [facility] 250 DO Work Phone: [phone] 0.0\S\0.0 Normal 0-0.5 [facility] 250 DO Work Phone: [phone] Comment on above: PERFORMED BY:[place] [address] [address] [place], [place] [phone] MEDICAL DIRECTORJORDANA THACKER M.D. 0.2\S\0.2 Normal 0.0-0.45 [facility] 250 DO Work Phone: [phone] 0.4\S\0.4 Normal 0.0-0.8 [facility] 250 DO Work Phone: [phone] 0.7\S\0.7 below low threshold 1.00-4.8 [facility] 250 DO Work Phone: 2.5\S\2.5 Normal 1.8-7.7 [facility] 250 DO Work Phone: 0.6\S\0.6 Normal . [facility] 250 DO Work Phone: 4.5\S\4.5 Normal . [facility] 250 DO Work Phone: 10.0\S\10.0 Normal . [facility] 250 DO Work Phone: 18.3\S\18.3 Normal . [facility] 250 DO Work Phone: 66.6\S\66.6 Normal . [facility] 250 DO Work Phone: 7.5\S\7.5 Normal 6.6-10.1 [facility] 250 DO Work Phone: 185\S\185 Normal 150-450 [facility] 250 DO Work Phone: [phone] 14.7\S\14.7 Normal 12.0-14.8 [facility] 250 DO Work Phone: 32.4\S\32.4 below low threshold 32.5-35.6 [facility] 250 DO Work Phone: 26.0\S\26.0 below low threshold 27.5-35.2 [facility] 250 DO Work Phone: [phone] 80.3\S\80.3 below low threshold 83.5-101 [facility] 250 DO Work Phone: [phone] 34.2\S\34.2 below low threshold 38.8-50.0 [facility] 250 DO Work Phone: 11.1\S\11.1 below low threshold 13.0-17.0 [facility] 250 DO Work Phone: 4.26\S\4.26 Normal 3.90-5.60 [facility] Catia y 250 DO Work Phone: 3.7\S\3.7 below low threshold 4.1-10.5 [facility] Heart[facility] y 250 DO Work Phone: 27.9\S\27.9 Normal 22.0-30.0 [facility] 250 DO Work Phone: [phone] 101\S\101 Normal 95-114 [facility] 250 DO Work Phone: 4.4\S\4.4 Normal 3.5-5.1 [facility] 250 DO Work Phone: [phone] 138\S\138 Normal 136-146 [facility] marino 250 DO Work Phone: [phone] 6\S\6 below low threshold 9-23 [place] Sandra marino 250 DO Work Phone: > 60 Normal Darren Melendez 250 DO Work Phone: Comment on above: GFR estimated refere nce range: According to KDOQI guidelines, <60 ml/min/1.73m2 is sufficient to diagnose a patient with chronic kidney disease. 0.99\S\0.99 Normal 0.64-1.27 [facility] Melendez 250 DO Work Phone: 3.3\S\3.3 Normal <5.0 Darren Melendez 250 DO Work Phone: Comment on above: PERFORMED BY:[place] [address] [address] [place], [place] [phone] MEDICAL DIRECTORJORDANA THACKER M.D. 17\S\17 Normal [facility] Catia Monreal DO Work Phone: 86\S\86 Normal 35-149 [facility] [place] Catia Monreal DO Work Phone: Comment on above: TRIG ATP III CLASSIF ICATION TRIG less than 150 mg/dL Normal TRIG 150-199 mg/dL Borderline high TRIG 200-500 mg/dL High TRIG greater than 500 mg/dL Very high Standard traceable to the Center for Disease Conrtrol and Prevention (CDC) test method. 36\S\36 Normal 29-71 [facility] Catia Monreal DO Work Phone: Comment on above: HDL CHOL ATP-III CLA SSIFICATION Cardiovascular Risk HDL > or equal to 60 mg/dL LOW HDL < 40 mg/dL HIGH Negative Normal Negative [place] [place] Catia Monreal DO Work Phone: Comment on above: This is a duplicate Daphnie SARS Antigen (ESTELA) result to be used for statistical tracking purpose only.PERFORMED BY:[place] [address] [address] [place], [place] [phone] MEDICAL DIRECTORJORDANA THACKER M.D. CT ABDOMEN AND PELVIS W ORAL CONTRASTon 11-09-2021 CT ABDOMEN AND PELVIS W ORAL CONTRAST [facility] Department of Radiology [address] [place] [id number] Patient Name: ELSA ESPINOZA : 1955 Sex: M Age: Race: White Pt. Location: 85 Patient Status: O Ordered Date: 11/07/2021 3:05:00 PM Completed Date: 11/09/2021 12:18 PM Requesting Provider: LAZARO PICKARD Attending Provider: LAZARO PICKARD Report Copy To: NIKUNJ MARI Signs & Symptoms: R10.31 Right lower quadrant pain I10 History: [place] needs to come early to drink Comments: Exam: CT ABDOMEN AND PELVIS W ORAL CONTRAST CT ABDOMEN AND PELVIS W ORAL CONTRAST 11/09/2021 12:18 PM CLINICAL INDICATIONS: R10.31 Right lower quadrant pain I10 TECHNOLOGIST COMMENTS: Right lower quadrant pain and rt sided pouching QUESTION FOR THE RADIOLOGIST: PROTOCOL: Axial CT images of the abdomen and pelvis were obtained without IV contrast. TECHNIQUE: Multidetector CT axial slices of the abdomen and pelvis without IV contrast. Multiplanar reformats were performed and viewed on a separate workstation and reviewed to further define anatomy and possible pathology. All CT scans at this facility use dose modulation, iterative reconstruction, and/or weight based dosing when appropriate to reduce radiation dose to as low as reasonably achievable COMPARISON: CT abdomen and pelvis February 07, 2021. FINDINGS: Scarring present in the left lower lobe unchanged. A small cyst is noted in segment 5 of the liver, unchanged. Spleen, and adrenals appear unremarkable. The gallbladder is absent. The pancreas is atrophic and unchanged from the prior study. Nonobstructing calculi noted in both kidneys. Interval development of left-sided hydronephrosis and left hydroureter with a 4 mm calculus present at the left UVJ. The seminal vesicles and prostate appear unremarkable. Oral contrast is reached the ileum. Wire anastomotic suture line noted in the mid to distal ileum. Subcutaneous scarring appreciated in the right lateral anterior abdominal wall. No free intraperitoneal air or free fluid identified. The aorta is diffusely calcified but nonaneurysmal. No retroperitoneal adenopathy or hematoma. The study viewed at bone window shows the presence of sternotomy wires. No acute or aggressive bony lesions identified. IMPRESSION: 1. Bilateral nonobstructive renal calculi. 2. 4 mm obstructing calculus at the left UVJ with resultant left-sided hydronephrosis and hydroureter. 3. Small hepatic cyst, absent gallbladder. 4. Anastomotic suture line in mid to distal ileum. 5. Subcutaneous scarring overlying the right lateral anterior abdominal wall. Electronically signed: Cristal Fernandes. Transcribed by: [email or web address], User Resident: Electronically Signed by: CRISTAL FERNANDES @ 11/09/2021 01:09 PM Normal [facility] CARDIAC STRESS/REST INJE CTIONon 11-06-2021 [facility] CARDIAC STRESS/REST INJECTION Patient Name: ELSA ESPINOZA STUDY: MYOCARDIAL PERFUSION STRESS TEST WITH EXERCISE CONVERTED TO LEXISCAN Performing facility: [facility], [address] [place] [address], [address], [place], [place] [address] Provider: Ivanna Chavarria DO, [facility] PCP: Dr. 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 HISTORY: Gender: M; Age: 66 y/o ; Height: 180.34 cm; Weight: 82.1097828 kg. HIGH CHOLESTEROL; DIABETES; HTN; MILD ; FATIGE. Denies smoking. S/P PTCA CABG on 2001. COMPARISON: No comparison. ACCESSION NUMBER(S): [id number]; [id number]; [id number] ORDERING CLINICIAN: LAURA BALDERAS TECHNIQUE: ONE DAY protocol. Stress injection: Date: 11/06/2021, 35.7 mCi of Myoview IV at 20 seconds after rapid injection of Lexiscan. Rest injection: Date: 11/06/2021, 10.4 mCi of Myoview IV at rest. The patient had a rapid injection of 0.4mg of Lexiscan IV over 10 seconds. Imaging was performed by gated tomographic technique. STRESS TEST DATA: Resting heart rate was 69 BPM. Resting blood pressure was 142/88 mmHg. The patient exercised using a Chon exercise protocol. 7:44 minutes exercised. 78% of MPHR achieved for age. 9.6 METS achieved. Maximum heart rate was 121 BPM. Maximum blood pressure was 166/88 mmHg. DTS -3. TREADMILL TEST TERMINATED DUE TO: FATUGUE. Test converted to Lexiscan. TEST TERMINATED DUE TO: Protocol completed. FINDINGS: STRESS TEST RESULTS: Resting electrocardiogram revealed normal sinus rhythm. There were significant ischemic ECG changes. Consistent with exercise-induced ischemia There were no dysrhythmias. The patient did not have chest pains/symptoms during the procedure. There was a normal recovery phase. Patient did not achieve 85% HR so test was immediately converted to Lexiscan. LEXISCAN INFUSION: The patient had a rapid injection of 0.4 mg of Lexiscan IV over 10 seconds. Resting electrocardiogram revealed normal sinus rhythm nonspecific ST-T changes. The patient had no significant ECG changes with maximal stress. The patient did not have chest pains/symptoms during the procedure. There was a normal recovery phase. There were no significant dysrhythmias. IMAGING RESULTS: Image quality was good. Rest and stress tomographic images were reviewed and revealed abnormal perfusion. There was evidence of perfusion abnormality with moderate area of moderate which is reversible on rest images consistent with anterior ischemia. There was no evidence myocardial infarction . There was not left ventricular dilatation with stress. Overall left ventricular systolic function appeared to be normal. LVEF was 58%. TID is 1.23 and is normal. There were no evidence of attenuation artifact. IMPRESSION: Abnormal Lexiscan Myoview cardiac perfusion stress test. Moderate anterior myocardial ischemia by perfusion imaging. No myocardial infarction by perfusion imaging. Normal left ventricular systolic function. Left ventricular ejection fraction 58 %. No previous study available for comparison. 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) 2001 CABG March 2017: PCI/PALMA to SVG- [id number] HONG-LAD patent Radial-dRCA patent SVG-Diag CLIENT SPECIALIST March [address] depression at 10 METs (treated conservatively) Essential hypertension (401.9) (I10) optimal in office monitors at home Hyperlipidemia (272.4) (E78.5) Moderate intensity statin Aug 2021 LDL 79, HDL 47 Mild aortic stenosis (424.1) (I35.0) Apr 2021 Echo Mild peak 21 mean 12 +MERIDA, no dizziness or angina Echocardiogram abnormal (793.2) (R93.1) Apr 2021 Echo LVEF 55-60% Mild Diabetes mellitus (250.00) (E11.9) On statin/JACKI reports 'good' control Overweight with body mass index (BMI) of 25 to 25.9 in adult (278.02,V85.21) (E66.3,Z68.25) Reviewed the merits of healthy lifestyle choices on overall cardiovascular health. 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 : MERIDA, fatigue Start: Nitroglycerin 0.4 MG Sublingual Tablet Sublingual; PLACE 1 TABLET UNDER THE TONGUE EVERY 5 MINUTES FOR UP TO 3 DOSES NEEDED FOR CHEST PAIN.CALL 911 IF PAIN PERSISTS Patient Instructions Please bring all medicines, vitamins, and herbal supplements with you when you come to the office. Prescriptions will not be filled unless you are compliant with your follow up appointments or have a follow up appointment scheduled as per instruction of your physician. Refills should be requested at the time of your visit. PLAN: Through informed decision making process incorporating patients unique circumstances, the following treatment plan will be initiated: 1. Prescription drug management of cardiovascular medication for efficacy, adherence to treatment, side effect assessment and polypharmacy. Current treatment clinically warranted and to continue with following modifications: - Add imdur 30mg po daily - NTG sl as needed 2. Treadmill MPI (MERIDA, change in exercise capacity) 3. Return for follow-up; in the interim, contact the office if new symptoms arise. Dr. Chavarria after testing Encourage healthy lifestyle choices including: - Heart Health Diet: eat plenty of nutrient-rich foods (fruits and veggies, whole grains, lean poultry and fish). Avoid saturated fats, trans fats and excess sodium and sugar. - Get at least 150 minutes per week of moderate-intensity aerobic activity. Brisk walking (at least 2.5 miles per hour), water aerobics, gardening, biking slower than 10 miles per hours. Any amount of movement is better than none. The simplest way to get moving and improve your health is to start walking. It's free, easy and can be done just about anywhere, even in place. Even if you have been sedentary for years, today is the day you can begin to make healthy changes in your life. Chief Complaint I am getting more SOB ELSA ESPINOZA is being seen for dyspnea. Patient is ambulatory with steady gait. Accompanied by his . Last evaluated in clinic by Dr. Chavarria March 2021. Compared to last cardiovascular evaluation, patient reports increasing MERIDA over last 2 months, increased fatigue and change in exercise capacity and functional capacity Patient denies any hospitalizations since last office follow-up. No COVID. Prior to 2016 PCI: no real chest pain, 'feel bad' No NTG use Had labs in Aug 2021 without anemia (had MERIDA at that time) History of Present Illness The patient states he has been generally stable since the last visit. Comorbid Illnesses: diabetes mellitus, hypertension and hyperlipidemia. Symptoms: denies chest pain at rest, denies exertional chest pain, worsened dyspnea, worsened fatigue, worsened exercise intolerance, denies palpitations, denies edema, denies orthopnea, denies dizziness and denies orthostatic dizziness. Associated symptoms: no syncope. His symptoms limit his activities. Disease Monitoring: The patient has had a stable weight. Medications: the patient is adherent with his medication regimen. He denies medication side effects. 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 Normal [facility] Tobacco Screening.on 022 Fall risk assessment a) No falls within the last year [facility] 250 DO Work Phone: Tobacco use status CPHS b) No [facility] 250 DO Work Phone: Basic Metabolic Panelon 12- Anion gap [Moles/Vol] 17 mmol/L Normal 12-20 [facility] Comment on above: Result Comment: Lyndsey wadsworthive 09/14/2019 reference range changed. Performed By: #### L IPD, CBCAD, HEP, TSH, VITD, BMP #### [facility] [address] [place], [place] [id number] Calcium [Mass/Vol] 9.9 mg/dL Normal 8.6-10.2 [facility] Comment on above: Performed By: #### L IPD, CBCAD, HEP, TSH, VITD, BMP #### [facility] [address] [place], [place] [id number] Chloride [Moles/Vol] 101 mmol/L Normal 98-107 [facility] Specialist Comment on above: Performed By: #### L IPD, CBCAD, HEP, TSH, VITD, BMP #### [facility] [address] [place], [place] [id number] CO2 [Moles/Vol] 28 mmol/L Normal 20-31 [facility] Comment on above: Performed By: #### L IPD, CBCAD, HEP, TSH, VITD, BMP #### [facility] [address] [place], [place] [id number] Creatinine [Mass/Vol] 0.9 mg/dL Normal 0.7-1.4 [facility] Comment on above: Performed By: #### L IPD, CBCAD, HEP, TSH, VITD, BMP #### [facility] [address] [place], [place] [id number] eGFRAA 107 mL/min/1.73m2 Normal >60 [facility] Specialist Comment on above: Performed By: #### L IPD, CBCAD, HEP, TSH, VITD, BMP #### [facility] [address] [place], [place] [id number] eGFRNAA 88 mL/min/1.73m2 Normal >60 [facility] Comment on above: Performed By: #### L IPD, CBCAD, HEP, TSH, VITD, BMP #### [facility] [address] [place], [place] [id number] Glucose [Mass/Vol] 116 mg/dL High 65-99 [facility] [place] [facility] Comment on above: Result Comment: For FASTING Glucose --- ADA reference ranges: Normal 65-99 mg/dl Prediabetes 100-125 Diabetes >/= 126 Performed By: #### L IPD, CBCAD, HEP, TSH, VITD, BMP #### [facility] [address] [place], [place] [id number] Potassium [Moles/Vol] 4.2 mmol/L Normal 3.5-5.5 [facility] Comment on above: Performed By: #### L IPD, CBCAD, HEP, TSH, VITD, BMP #### [facility] [address] [place], [place] [id number] Sodium [Moles/Vol] 142 mmol/L Normal 135-146 [facility] [place] [facility] Tender Comment on above: Performed By: #### L IPD, CBCAD, HEP, TSH, VITD, BMP #### [facility] [address] [place], [place] [id number] Urea nitrogen [Mass/Vol] 11 mg/dL Normal 7-25 [facility] Comment on above: Performed By: #### L IPD, CBCAD, HEP, TSH, VITD, BMP #### [facility] [address] [place], [place] [id number] Complete Blood Count with Au to Diffon 08-25-2021 Basophils (Bld) [#/Vol] 0.02 10*3/uL Normal 0.00-0.20 [facility] Comment on above: Performed By: #### L IPD, CBCAD, HEP, TSH, VITD, BMP #### [facility] [address] [place], [place] [id number] Basophils/100 WBC (Bld) 0.4 % Normal [facility] Specialist Comment on above: Performed By: #### L IPD, CBCAD, HEP, TSH, VITD, BMP #### [facility] [address] [place], [place] [id number] Eosinophils (Bld) [#/Vol] 0.16 10*3/uL Normal 0.02-0.50 [facility] Specialist Comment on above: Performed By: #### L IPD, CBCAD, HEP, TSH, VITD, BMP #### [facility] [address] [place], [place] [id number] Eosinophils/100 WBC (Bld) 3.4 % Normal [facility] Comment on above: Performed By: #### L IPD, CBCAD, HEP, TSH, VITD, BMP #### [facility] [address] [place], [place] [id number] Erythrocyte distribution width (RBC) [Ratio] 13.7 % Normal 11.0-15.0 [facility] Specialist Comment on above: Performed By: #### L IPD, CBCAD, HEP, TSH, VITD, BMP #### [facility] [address] [place], [place] [id number] Hematocrit (Bld) [Volume fraction] 42.5 % Normal 38.5-50.0 [facility] Specialist Comment on above: Performed By: #### L IPD, CBCAD, HEP, TSH, VITD, BMP #### [facility] [address] [place] [place], [place] [id number] Hemoglobin (Bld) [Mass/Vol] 13.7 g/dL Normal 13.0-17.1 [facility] Specialist Comment on above: Performed By: #### L IPD, CBCAD, HEP, TSH, VITD, BMP #### [facility] [address] [place], [place] [id number] Lymphocytes (Bld) [#/Vol] 1.1 10*3/uL Normal 0.9-3.9 [facility] Specialist Comment on above: Performed By: #### L IPD, CBCAD, HEP, TSH, VITD, BMP #### [facility] [address] [place], [place] [id number] Lymphocytes/100 WBC (Bld) 23.9 % Normal [facility] Specialist Comment on above: Performed By: #### L IPD, CBCAD, HEP, TSH, VITD, BMP #### [facility] [address] [place], [place] [id number] MCH (RBC) [Entitic mass] 27.5 pg Normal 27.0-33.0 [facility] Specialist Comment on above: Performed By: #### L IPD, CBCAD, HEP, TSH, VITD, BMP #### [facility] [address] [place], [place] [id number] MCHC (RBC) [Mass/Vol] 32.2 g/dL Normal 32.0-36.0 [facility] Specialist Comment on above: Performed By: #### L IPD, CBCAD, HEP, TSH, VITD, BMP #### [facility] [address] [place], [place] [id number] MCV (RBC) [Entitic vol] 85 fL Normal 80-100 [facility] Specialist Comment on above: Performed By: #### L IPD, CBCAD, HEP, TSH, VITD, BMP #### [facility] [address] [place], [place] [id number] Monocytes (Bld) [#/Vol] 0.5 10*3/uL Normal 0.2-0.9 [facility] Specialist Comment on above: Performed By: #### L IPD, CBCAD, HEP, TSH, VITD, BMP #### [facility] [address] [place], [place] [id number] Monocytes/100 WBC (Bld) 10.7 % Normal [facility] Comment on above: Performed By: #### L IPD, CBCAD, HEP, TSH, VITD, BMP #### [facility] [address] [place], [place] [id number] Neutrophils (Bld) [#/Vol] 2.9 10*3/uL Normal 1.5-7.8 [facility] Comment on above: Performed By: #### L IPD, CBCAD, HEP, TSH, VITD, BMP #### [facility] [address] [place], [place] [id number] Neutrophils/100 WBC (Bld) 61.2 % Normal [facility] Comment on above: Performed By: #### L IPD, CBCAD, HEP, TSH, VITD, BMP #### [facility] [address] [place], [place] [id number] Platelet mean volume (Bld) [Entitic vol] 10.30 fL Normal 7.50-12.50 [facility] Specialist Comment on above: Performed By: #### L IPD, CBCAD, HEP, TSH, VITD, BMP #### [facility] [address] [place], [place] [id number] Platelets (Bld) [#/Vol] 157 10*3/uL Normal 140-400 [facility] Specialist Comment on above: Performed By: #### L IPD, CBCAD, HEP, TSH, VITD, BMP #### [facility] [address] [place], [place] [id number] RBC (Bld) [#/Vol] 4.98 10*6/uL Normal 4.20-5.80 [facility] Specialist Comment on above: Performed By: #### L IPD, CBCAD, HEP, TSH, VITD, BMP #### [facility] [address] [place], [place] [id number] RDW-SD 42.2 fL Normal 37.0-50.0 [facility] Specialist Comment on above: Performed By: #### L IPD, CBCAD, HEP, TSH, VITD, BMP #### [facility] [address] [place], [place] [id number] WBC (Bld) [#/Vol] 4.8 10*3/uL Normal 3.8-11.0 [facility] [place] [facility] Comment on above: Performed By: #### L IPD, CBCAD, HEP, TSH, VITD, BMP #### [facility] [address] [place], [place] [id number] Hemoglobin A1Con 08-25-2021 EAG 208.73 Normal [facility] Specialist Comment on above: Performed By: #### A 1C #### [facility] [address] [place], [place] [id number] HbA1c (Bld) [Mass fraction] 8.9 % High 4.0-6.0 [facility] Comment on above: Performed By: #### A 1C #### [facility] [address] [place], [place] [id number] Hepatic Function Panelon Albumin [Mass/Vol] 4.7 g/dL Normal 3.6-5.[address] [facility] [employer] Comment on above: Performed By: #### L IPD, CBCAD, HEP, TSH, VITD, BMP #### [facility] [address] [place], [place] [id number] Albumin/Globulin [Mass ratio] 2.2 {ratio} Normal 1.0-2.5 [facility] [employer] Comment on above: Performed By: #### L IPD, CBCAD, HEP, TSH, VITD, BMP #### [facility] [address] [place], [place] [id number] ALP [Catalytic activity/Vol] 60 U/L Normal 40-129 [facility] [employer] Comment on above: Performed By: #### L IPD, CBCAD, HEP, TSH, VITD, BMP #### [facility] [address] [place], [place] [id number] ALT [Catalytic activity/Vol] 20 U/L Normal 9-46 [facility] Comment on above: Result Comment: 08/09 Female reference range changed. Performed By: #### L IPD, CBCAD, HEP, TSH, VITD, BMP #### [facility] [address] [place], [place] [id number] AST [Catalytic activity/Vol] 24 U/L Normal 10-40 [facility] [employer] Comment on above: Performed By: #### L IPD, CBCAD, HEP, TSH, VITD, BMP #### [facility] [address] [place], [place] [id number] Bilirubin [Mass/Vol] 0.48 mg/dL Normal 0.30-1.20 [facility] Comment on above: Performed By: #### L IPD, CBCAD, HEP, TSH, VITD, BMP #### [facility] [address] [place], [place] [id number] DBIL <0.2 Normal [facility] Comment on above: Result Comment: Refe rence range change 07/26/2017. Prior reference range 0.1-0.3 mg/dL. Performed By: #### L IPD, CBCAD, HEP, TSH, VITD, BMP #### [facility] [address] [place], [place] [id number] Globulin (S) [Mass/Vol] 2.1 g/dL Normal 1.9-3.7 [facility] Comment on above: Performed By: #### L IPD, CBCAD, HEP, TSH, VITD, BMP #### [facility] [address] [place], [place] [id number] Protein [Mass/Vol] 6.8 g/dL Normal 6.1-8.1 [facility] Comment on above: Performed By: #### L IPD, CBCAD, HEP, TSH, VITD, BMP #### [facility] [address] [place], [place] [id number] Lipid Panelon 08-25-2021 Cholesterol [Mass/Vol] 172 mg/dL Normal 125-200 [facility] Specialist Comment on above: Result Comment: Low risk < 200mg/dL Borderline risk 201-239 mg/dl High risk > or equal to 240 Performed By: #### L IPD, CBCAD, HEP, TSH, VITD, BMP #### [facility] [address] [place], [place] [id number] Cholesterol in HDL [Mass/Vol] 47 mg/dL Normal >40 [facility] Comment on above: Result Comment: High Cardiovascular Risk HDL <40 mg/dL Low Cardiovascular Risk HDL > or equal to 60 mg/dl Performed By: #### L IPD, CBCAD, HEP, TSH, VITD, BMP #### [facility] [address] [place], [place] [id number] Cholesterol in LDL [Mass/Vol] 79 mg/dL Normal [facility] Specialist Comment on above: Result Comment: LDL ATP III CLASSIFICATION LDL less than 100 mg/dl Optimal LDL 100-129 mg/dl Near or above optimal LDL 130-159 Borderline high LDL 160-189 High LDL greater than 189 mg/dl Very High Performed By: #### L IPD, CBCAD, HEP, TSH, VITD, BMP #### [facility] [address] [place], [place] [id number] Cholesterol in VLDL [Mass/Vol] 46 mg/dL Normal [facility] Comment on above: Performed By: #### L IPD, CBCAD, HEP, TSH, VITD, BMP #### [facility] [address] [place], [place] [id number] Cholesterol.total/C holesterol in HDL [Mass ratio] 4 {ratio} Normal [facility] Comment on above: Performed By: #### L IPD, CBCAD, HEP, TSH, VITD, BMP #### [facility] [address] [place], [place] [id number] Triglyceride [Mass/Vol] 231 mg/dL High 30-150 [facility] Specialist Comment on above: Result Comment: TRIG ATPIII CLASSIFICATIONS TRIG less than 150 mg/dl Normal TRIG 150-199 mg/dl Borderline High TRIG 200-500 mg/dl High TRIG greather than 500 mg/dl Very High Performed By: #### L IPD, CBCAD, HEP, TSH, VITD, BMP #### [facility] [address] [place], [place] [id number] Prostatic Specific Antigen, Totalon 08-25-2021 TPSA 1.270 ng/mL Normal <4.000 [facility] Specialist Comment on above: Result Comment: PSA Test Method: ECLIA/Alda e 601 Performed By: #### P SA #### [facility] [address] [place], [place] [id number] TSHon 08-25-2021 TSH 1.520 uIU/mL Normal 0.400-4.500 [facility] Specialist Comment on above: Performed By: #### L IPD, CBCAD, HEP, TSH, VITD, BMP #### [facility] [address] [place], [place] [id number] Vitamin D 25-OHon 08-25-2021 VIT D 25 OH 22 ng/ml Low >29 [facility] [employer] Comment on above: Result Comment: Anayeli min D Status Deficiency <20 ng/mL Insufficiency 20-29 ng/mL Optimal 30-100 ng/mL Possible Toxicity >=150 ng/mL Performed By: #### L IPD, CBCAD, HEP, TSH, VITD, BMP #### [facility] [address] [place], [place] [id number] Echocardiogramon 05-03-[address], [address], [place] [address] TRANSTHORACIC ECHOCARDIOGRAM REPORT Patient Name: ELSA Evangelina Physician: [id number] Leo ESPINOZA MD Study Date: 05/03/2021 Referring [id number] LEO CHAVARRIA Physician: MRN/PID: [id number] PCP: Nikunj Mari Accession/Order#: [id number] Department [facility] Location: Date of : 1955 Fellow: Gender: M Nurse: Admit Date: Senior Gis Analyst: Jamila Obrien RD, [facility] Height: 180.34 cm CC Report to: Weight: 84.82 kg Study Type: Echocardiogram BSA: 2.05 m2 Blood Pressure: 156 /80 mmHg Diagnosis/ICD: I35.0-Nonrheumatic aortic (valve) stenosis Indication: CAD, Diabetes, HTN, Hyperlipidemia, RI and PTCA-2017, CABG Procedure/CPT: Echo Complete w Full [id number] Study Detail: The following Echo studies were performed: 2D, M-Mode, Doppler and color flow. PHYSICIAN INTERPRETATION: Left Ventricle: The left ventricular systolic function is normal, with an estimated ejection fraction of 55-60%. There are no regional wall motion abnormalities. The left ventricular cavity size is normal. Spectral Doppler shows a normal pattern of left ventricular diastolic filling. Left Atrium: The left atrium is mildly dilated. Right Ventricle: The right ventricle is slightly enlarged. There is normal right ventricular global systolic function. Right Atrium: The right atrium is normal in size. Aortic Valve: The aortic valve is trileaflet. There is evidence of mild aortic valve stenosis. There is no evidence of aortic valve regurgitation. The peak instantaneous gradient of the aortic valve is 21.5 mmHg. The mean gradient of the aortic valve is 12.0 mmHg. Mitral Valve: The mitral valve is normal in structure. There is trace mitral valve regurgitation. Tricuspid Valve: The tricuspid valve is structurally normal. There is trace tricuspid regurgitation. Pulmonic Valve: The pulmonic valve is not well visualized. There is trace pulmonic valve regurgitation. Pericardium: There is no pericardial effusion noted. Aorta: The aortic root is normal. CONCLUSIONS: 1. The left ventricular systolic function is normal with a 55-60% estimated ejection fraction. 2. Mild aortic valve stenosis. QUANTITATIVE DATA SUMMARY: 2D MEASUREMENTS: Normal Ranges: Ao Root d: 3.70 cm (2.0-3.7cm) LAs: 4.10 cm (2.7-4.0cm) RVIDd: 3.60 cm (0.9-3.6cm) IVSd: 1.10 cm (0.6-1.1cm) LVPWd: 1.00 cm (0.6-1.1cm) LVIDd: 5.80 cm (3.9-5.9cm) LVIDs: 3.90 cm LV Mass Index: 121.2 g/m2 LV % FS 32.8 % LV SYSTOLIC FUNCTION BY 2D PLANIMETRY (MOD): Normal Ranges: EF-A4C View: 53.7 % (>55%) LV DIASTOLIC FUNCTION: Normal Ranges: MV Peak E: 0.90 m/s (0.7-1.2 m/s) MV Peak A: 1.08 m/s (0.42-0.7 m/s) E/A Ratio: 0.83 (1.0-2.2) MV lateral e' 0.08 m/s MV medial e' 0.07 m/s E/e' Ratio: 10.60 (<8.0) MITRAL VALVE: Normal Ranges: MV Vmax: 1.11 m/s (<1.3m/s) MV peak P.9 mmHg (<5mmHg) MV mean P.0 mmHg (<48mmHg) MITRAL INSUFFICIENCY: Normal Ranges: MR Vmax: 441.00 cm/s AORTIC VALVE: Normal Ranges: AoV Vmax: 2.32 m/s (<1.7m/s) AoV Peak P.5 mmHg (<20mmHg) AoV Mean P.0 mmHg (1.7-11.5mmHg) LVOT Max Kyler: 0.78 m/s (<1.1m/s) AoV VTI: 50.30 cm (18-25cm) LVOT VTI: 15.70 cm LVOT Diameter: 2.30 cm (1.8-2.4cm) AoV Area, VTI: 1.30 cm2 (2.5-5.5cm2) AoV Area,Vmax: 1.39 cm2 (2.5-4.5cm2) AoV Dimensionless Index: 0.31 PULMONIC VALVE: Normal Ranges: PV Max Kyler: 0.6 m/s (0.6-0.9m/s) PV Max P.6 mmHg [id number] Leo Graves MD Electronically signed on 05/04/2021 at 6:20:39 PM Final Normal [facility] 04-18-2021 ALT [Catalytic activity/Vol] 24 U/L Normal 9-46 [facility] Comment on above: Result Comment: NO C OLLECTION DATE RECEIVED. WE HAVE USED THE DATE THE SPECIMEN WAS RECEIVED BY THIS LABORATORY THE COLLECTION DATE. IF THIS IS INCORRECT, PLEASE CONTACT CLIENT SERVICES. PHONE NUMBER: [phone] Performed By: #### 0 90, 380, 53722 #### [facility] [place] [id number] Electroencephalographic Technician: Ck Jarvis MD [place] 04-18-2021 AST [Catalytic activity/Vol] 26 U/L Normal 10-35 [facility] Comment on above: Performed By: #### 8 24, 281, 06345 #### [facility] [address] Electroencephalographic Technician: Ck Jarvis MD LIPID PANEL WITH REFLEX TO D IRECT LDLon 04-18-2021 Cholesterol [Mass/Vol] 151 mg/dL Normal <200 [facility] Comment on above: Order Comment: FASTI NG: UNKNOWN Performed By: #### 8 00, 372, 51112 #### [facility] [place] [address] Electroencephalographic Technician: Ck Jarvis MD Cholesterol in HDL [Mass/Vol] 40 mg/dL Normal > OR = 40 [facility] Comment on above: Order Comment: FASTI NG: UNKNOWN Performed By: #### 8 , 82, 88651 #### [facility] [place] [address] Electroencephalographic Technician: Ck Jarvis MD Cholesterol in LDL [Mass/Vol] 80 mg/dL Normal [facility] Comment on above: Order Comment: FASTI NG: UNKNOWN Result Comment: Refe rence range: <100 Desirable range <100 mg/dL for primary prevention; <70 mg/dL for patients with CHD or diabetic patients with > or = 2 CHD risk factors. LDL-C is now calculated using the Wang calculation, which is a validated novel method providing better accuracy than the Friedewald equation in the estimation of LDL-C. Ramy HERNANDEZ et al. GENIA. 2013;310(19): 2507-3348 (http://education.PredictionIO.GenArts/faq/FSE855) Performed By: #### 8 , 82, 41009 #### [facility] [place] [address] Electroencephalographic Technician: Ck Jarvis MD Cholesterol.total/C holesterol in HDL [Mass ratio] 3.8 {ratio} Normal <5.0 [facility] Comment on above: Order Comment: FASTI NG: UNKNOWN Performed By: #### 8 , 82, 88950 #### [facility] [place] [address] Electroencephalographic Technician: Ck Jarvis MD NON HDL CHOLESTEROL 111 mg/dL (calc) Normal <130 [facility] Comment on above: Order Comment: FASTI NG: UNKNOWN Result Comment: For patients with diabetes plus 1 major ASCVD risk factor, treating to a non-HDL-C goal of <100 mg/dL (LDL-C of <70 mg/dL) is considered a therapeutic option. Performed By: #### 8 , 822, 58445 #### [facility] [address], [address] [place] [address] Electroencephalographic Technician: Ck Jarvis MD Triglyceride [Mass/Vol] 216 mg/dL High <150 [facility] Comment on above: Order Comment: FASTI NG: UNKNOWN Result Comment: If a non-fasting specimen was collected, consider repeat triglyceride testing on a fasting specimen if clinically indicated. Yumiko et al. J. of Clin. Lipidol. 2015;9:129-169. Performed By: #### 8 23, 822, 35588 #### [facility] [address], [address] [place] [address] Electroencephalographic Technician: Ck Jarvis MD RENALon 03-20-2021 RENAL [facility] Department of Radiology [address] [place] [id number] Patient Name: ELSA ESPINOZA : 1955 Sex: M Age: Race: White Pt. Location: [facility] Patient Status: D Ordered Date: 03/01/2021 9:55:00 AM Completed Date: 03/20/2021 04:00 PM Requesting Provider: PERICO ADAM Attending Provider: PERICO ADAM Report Copy To: Signs & Symptoms: N13.30 Unspecified hydronephrosis I10 History: [place] [address] / per cigna/ passed med nec *er Comments: Exam: US RENAL US RENAL 03/20/2021 4:00 PM SIGNS AND SYMPTOMS: N13.30 Unspecified hydronephrosis I10 TECHNOLOGIST COMMENTS: hydronephrosis QUESTION FOR THE RADIOLOGIST: TECHNIQUE: Limited retroperitoneal ultrasound. COMPARISON: CT abdomen and pelvis February 07, 2021. Renal ultrasound November 09, 2013. FINDINGS: The right kidney measures 13.8 x 6.5 x 6.2 cm and the left kidney 13.9 x 6.5 x 5.4 cm. Echogenic foci with twinkle artifact were present bilaterally. Small cysts are noted in the right kidney, the largest measuring 1.2 x 1.1 x 1.1 cm. A cyst is present in the left lower pole measuring 4.1 x 4.2 x 4.3 cm. The bladder initially contained 150 mL of urine which diminished to 11 mL post void. A cyst was noted in the liver measuring 1.9 x 1.5 x 1.9 cm. IMPRESSION: * Bilateral renal calculi redemonstrated. * Cyst noted in the left lower pole. No hydronephrosis appreciated. * Insignificant post void bladder residual. * Hepatic cysts redemonstrated. Electronically signed: Cristal Fernandes. Transcribed by: [email or web address], User Resident: Electronically Signed by: CRISTAL FERNANDES @ 03/21/2021 06:44 AM Normal [facility] *URINE CULTUREon 02-07-2021 *URINE CULTURE Clinical Report: (D) Specimen/Source: URINE/CLEAN VOID URINE Collected: 02/07/2021 20:35 Status: Final Last Updated: 02/10/2021 08:00 CULT RES (Final) <10,000 Cfu/Ml No Significant Growth Normal [facility] Comment on above: Performed By: #### 3 0339 #### [facility] [address] [place] [address], [facility] BASIC METABOLIC PANELon 06-0 Calcium [Mass/Vol] 9.4 mg/dL Normal 8.6-10.3 [facility] Comment on above: Performed By: #### 0 0071 #### [facility] [address] [place] [address], [facility] Chloride [Moles/Vol] 96 mmol/L Low 98-107 [facility] Comment on above: Performed By: #### 0 0071 #### [facility] [address] [place] [address], [facility] CO2 [Moles/Vol] 28 mmol/L Normal 21-31 [facility] Comment on above: Performed By: #### 0 0071 #### [facility] [address] [place] [address], [facility] Creatinine [Mass/Vol] 0.87 mg/dL Normal 0.70-1.30 [facility] Comment on above: Performed By: #### 0 0071 #### [facility] [address] [place] [address], [facility] GFR/1.73 sq M.predicted among blacks MDRD (S/P/Bld) [Vol rate/Area] mL/min/{1.73_m2} Normal >60 [facility] Comment on above: Performed By: #### 0 0071 #### [facility] [address] [facility] [place] [address], [facility] GFR/1.73 sq M.predicted among non-blacks MDRD (S/P/Bld) [Vol rate/Area] mL/min/{1.73_m2} Normal >60 [facility] Comment on above: Performed By: #### 0 0071 #### [facility] [address] [place] [address], [facility] Glucose [Mass/Vol] 220 mg/dL High 70-100 [facility] Comment on above: Performed By: #### 0 0071 #### [facility] [address] [place] [address], [facility] Potassium [Moles/Vol] 4.1 mmol/L Normal 3.5-5.1 [facility] Comment on above: Performed By: #### 0 0071 #### [facility] [address] Sodium [Moles/Vol] 135 mmol/L Low 136-145 [facility] Comment on above: Performed By: #### 0 0071 #### [facility] [address] Urea nitrogen [Mass/Vol] 9 mg/dL Normal 7-25 [facility] Comment on above: Performed By: #### 0 0071 #### [facility] [address] CBC W/DIFFon 02-07-2021 ABS IMM GRANS 0.0 10*3/uL Normal 0.0-0.2 [facility] Comment on above: Performed By: #### 5 3 #### [facility] [address] ABS NEUTROPHILS 3.1 10*3/uL Normal 1.6-7.6 [facility] Comment on above: Performed By: #### 5 102 #### [facility] [address] Basophils (Bld) [#/Vol] 0.0 10*3/uL Normal 0.0-0.2 [facility] Comment on above: Performed By: #### 5 102 #### [facility] [address] Basophils/100 WBC (Bld) 0.4 % Normal 0.0-1.0 [facility] Comment on above: Performed By: #### 5 102 #### [facility] [address] [place] [address], [facility] Eosinophils (Bld) [#/Vol] 0.1 10*3/uL Normal 0.0-0.5 [facility] Comment on above: Performed By: #### 5 102 #### [facility] [address] [place] [address], [facility] Eosinophils/100 WBC (Bld) 2.2 % Normal 0.0-6.0 [facility] Comment on above: Performed By: #### 5 0103 #### [facility] [address] [facility]. [address] Erythrocyte distribution width (RBC) [Ratio] 15.0 % Normal 11.5-15.0 [facility] Comment on above: Performed By: #### 5 0103 #### [facility] [address] [facility]. [address] Hematocrit (Bld) [Volume fraction] 40.2 % Normal 39.0-50.0 [facility] Comment on above: Performed By: #### 5 0103 #### [facility] [address] [facility]. [address] Hemoglobin (Bld) [Mass/Vol] 13.0 g/dL Normal 13.0-17.0 [facility] Comment on above: Performed By: #### 5 0103 #### [facility] [address] IMMATURE GRANS 0.4 % Normal 0.0-1.0 [facility] Comment on above: Performed By: #### 5 0103 #### [facility] [address] [facility] [place] [address], [facility] Lymphocytes (Bld) [#/Vol] 0.9 10*3/uL Low 1.2-4.0 [facility] Comment on above: Performed By: #### 5 0103 #### [facility] [address] [place] [address], [facility] Lymphocytes/100 WBC (Bld) 19.9 % Low 20.0-45.0 [facility] Comment on above: Performed By: #### 5 3 #### [facility] [address] [place] [address], [facility] MCH (RBC) [Entitic mass] 25.9 pg Low 27.0-33.0 [facility] Comment on above: Performed By: #### 5 0103 #### [facility] [address] [place] [address], [facility] MCHC (RBC) [Mass/Vol] 32.3 g/dL Normal 32.0-35.0 [facility] Comment on above: Performed By: #### 0103 #### [facility] [address] [place] [address], [facility] MCV (RBC) [Entitic vol] 80.2 fL Low 82.0-98.0 [facility] Comment on above: Performed By: #### 102 #### [facility] [address] [place] [address], [facility] Monocytes (Bld) [#/Vol] 0.5 10*3/uL Normal 0.1-1.0 [facility] Comment on above: Performed By: #### 5 102 #### [facility] [address] [place] [address], [facility] MONOS 10.3 % Normal 5.0-12.0 [facility] Comment on above: Performed By: #### 5 102 #### [facility] [address] [place] [address], [facility] Neutrophils/100 WBC (Bld) 66.8 % Normal 40.0-72.0 [facility] Comment on above: Performed By: #### 102 #### [facility] [address] [place] [address], [facility] Nucleated RBC/100 WBC (Bld) [Ratio] 0 % Normal 0-0 [facility] Comment on above: Performed By: #### 102 #### [facility] [address] [place] [address], [facility] PLAT CNT 147 10*3/uL Low 150-400 [facility] Comment on above: Performed By: #### 5 0103 #### [facility] [address] [facility] [place] [address], [facility] RBC (Bld) [#/Vol] 5.01 10*6/uL Normal 4.20-5.70 [facility] Comment on above: Performed By: #### 5 0103 #### [facility] [address] [place] [address], [facility] WBC (Bld) [#/Vol] 4.58 10*3/uL Normal 4.00-10.60 [facility] Comment on above: Performed By: #### 5 0103 #### [facility] [address] [place] [address], [facility] CT ABDOMEN AND PELVIS WO CON TRASTon 02-07-2021 CT ABDOMEN AND PELVIS WO CONTRAST [facility] Department of Radiology [address] [place] [id number] Patient Name: ELSA ESPINOZA : 1955 Sex: M Age: Race: White Pt. Location: [facility] Patient Status: E Ordered Date: 02/07/2021 9:25:00 PM Completed Date: 02/07/2021 09:51 PM Requesting Provider: ASHLEE ARMIJO Attending Provider: ESE KELLER Report Copy To: Signs & Symptoms: Abnormal Bleeding History: See Comments Comments: Renal Stones Exam: CT ABDOMEN AND PELVIS WO CONTRAST CT ABDOMEN AND PELVIS WO CONTRAST 02/07/2021 9:52 PM CLINICAL INDICATIONS: Abnormal Bleeding TECHNOLOGIST COMMENTS: pt states having blood in urine x 2 days and hx of kidney stones QUESTION FOR THE RADIOLOGIST: Renal Stones PROTOCOL: Axial CT images of the abdomen and pelvis were obtained without IV contrast. TECHNIQUE: Multidetector CT axial slices of the without IV contrast. Multiplanar reformats were performed and viewed on a separate workstation and reviewed to further define anatomy and possible pathology. All CT scans at this facility use dose modulation, iterative reconstruction, and/or weight based dosing when appropriate to reduce radiation dose to as low as reasonably achievable COMPARISON: 10/29/2018 FINDINGS: CT abdomen: Previously seen 3 mm stone lower pole the left kidney has migrated to the UPJ causing low-grade hydronephrosis. Additional nonobstructing stones upper pole left kidney up to 2 mm, upper, mid and lower pole right kidney, largest stone lower pole right kidney 6 mm. No free air or free fluid. No enlarged abdominal lymph nodes. Minimal scarring lung bases again noted. Absent gallbladder. Stable 1.5 cm cyst in the posterior segment right liver lobe. No enlarged lymph nodes. No abdominal aortic aneurysm. CT PELVIS: Intact anastomosis from right hemicolectomy. Moderate amount of stool throughout the colon without bowel obstruction. No free fluid. No enlarged pelvic or inguinal lymph nodes. No osseous lesions. IMPRESSION: Low-grade left hydronephrosis from a 3 mm UPJ stone. Bilateral nephrolithiasis. Electronically signed: Shauna Green. Transcribed by: [email or web address], User Resident: Electronically Signed by: SHAUNA GREEN @ 02/07/2021 10:10 PM Normal [facility] Comment on above: Order Comment: Renal Stones URINALYSIS REFLEXon 02-08-20 21 Appearance (U) CLOUDY Abnormal CLEAR [facility] Comment on above: Order Comment: Crite farhan for reflexing a culture was not met. Please call the lab at [phone] within 24 hours of collection time if culture is needed Performed By: #### 3 0965 #### [address] [place] [address], [facility] Bilirubin Ql (U) Negative Normal NEGATIVE [facility] Comment on above: Order Comment: Crite farhan for reflexing a culture was not met. Please call the lab at 7668 within 24 hours of collection time if culture is needed Performed By: #### 3 0965 #### [facility] [address] [facility] [place] [address], [facility] Color (U) MARA Abnormal YELLOW [facility] Comment on above: Order Comment: Crite farhan for reflexing a culture was not met. Please call the lab at 7668 within 24 hours of collection time if culture is needed Performed By: #### 3 0965 #### [facility] [address] [facility] [place] [address], [facility] EPIS NONE SEEN Normal FEW,OCC,NON E SEEN [facility] Comment on above: Order Comment: Crite farhan for reflexing a culture was not met. Please call the lab at 7668 within 24 hours of collection time if culture is needed Performed By: #### 3 0965 #### [facility] [address] [facility] [place] [address], [facility] Glucose Ql (U) >=500 Abnormal NEGATIVE [facility] Comment on above: Order Comment: Crite farhan for reflexing a culture was not met. Please call the lab at 7668 within 24 hours of collection time if culture is needed Performed By: #### 3 0965 #### [facility] [address] [facility] [place] [address], [facility] Hemoglobin Ql (U) LARGE Abnormal NEGATIVE [facility] Comment on above: Order Comment: Crite farhan for reflexing a culture was not met. Please call the lab at 7668 within 24 hours of collection time if culture is needed Performed By: #### 3 0965 #### [facility] [address] [facility] [place] [address], [facility] KETONE Negative Normal NEGATIVE [facility] Comment on above: Order Comment: Crite farhan for reflexing a culture was not met. Please call the lab at 7668 within 24 hours of collection time if culture is needed Performed By: #### 3 0965 #### [facility] [address] [facility] [address], [facility] LEUK SUSU Negative Normal NEGATIVE [facility] Comment on above: Order Comment: Crite farhan for reflexing a culture was not met. Please call the lab at 7668 within 24 hours of collection time if culture is needed Performed By: #### 3 0965 #### [facility] [address] [facility] [place] [address], [facility] Nitrite Ql (U) Negative Normal NEGATIVE [facility] Comment on above: Order Comment: Crite farhan for reflexing a culture was not met. Please call the lab at 7668 within 24 hours of collection time if culture is needed Performed By: #### 3 0965 #### [place] [address], [facility] pH (U) 7.0 [pH] Normal 5.0-8.0 [facility] Comment on above: Order Comment: Crite farhan for reflexing a culture was not met. Please call the lab at 7668 within 24 hours of collection time if culture is needed Performed By: #### 3 0965 #### [facility] [address] [facility] [place] [address], [facility] Protein Ql (U) 30 mg/dL Abnormal NEGATIVE [facility] Comment on above: Order Comment: Crite farhan for reflexing a culture was not met. Please call the lab at 7668 within 24 hours of collection time if culture is needed Performed By: #### 3 0965 #### [facility] [address] [facility] [place] [address], [facility] RBC (U) [#/Vol] /uL Abnormal NONE SEEN [facility] Comment on above: Order Comment: Crite farhan for reflexing a culture was not met. Please call the lab at 7668 within 24 hours of collection time if culture is needed Performed By: #### 3 0965 #### [facility] [address] [place] [address], [facility] SPEC GRAV 1.023 High 1.015-1.020 [facility] Comment on above: Order Comment: Crite farhan for reflexing a culture was not met. Please call the lab at 7668 within 24 hours of collection time if culture is needed Performed By: #### 3 0965 #### [facility] [address] [place] [address], [facility] WBC UA NONE SEEN Normal NONE SEEN [facility] Comment on above: Order Comment: Crite farhan for reflexing a culture was not met. Please call the lab at 7668 within 24 hours of collection time if culture is needed Performed By: #### 3 0965 #### [facility] [address] [place] [address], [facility] *ENTERIC BACTERIAL DNA PANEL on 12-18-2020 *ENTERIC BACTERIAL DNA PANEL Clinical Report: (D) Specimen: STOOL Collected: 12/18/2020 11:45 Status: Final Last Updated: 12/19/2020 13:34 Shigella (Final) Negative Campy (Final) Negative Vibrio (Final) Negative ETEC (Final) Negative ShigaTox (Final) Negative SALM (Final) Negative Plesiom (Final) Negative Yersinia (Final) Negative Normal [facility] Comment on above: Performed By: #### 3 1598 #### [facility] [address] [facility] [place] [address], [facility] BASIC METABOLIC PANELon 12-08 Calcium [Mass/Vol] 8.5 mg/dL Low 8.6-10.3 [facility] Comment on above: Order Comment: No: D o not add to previous draw Performed By: #### 1 69, 12735 #### [facility] [address] [place] [address], [place] Chloride [Moles/Vol] 102 mmol/L Normal 98-107 [facility] Comment on above: Order Comment: No: D o not add to previous draw Performed By: #### 1 69, [id number] #### [facility] [address] [place] [address], [place] CO2 [Moles/Vol] 29 mmol/L Normal 21-31 [facility] Comment on above: Order Comment: No: D o not add to previous draw Performed By: #### 1 69, 02705 #### [facility] [address] [place] [address], [place] Creatinine [Mass/Vol] 1.01 mg/dL Normal 0.70-1.30 [facility] Comment on above: Order Comment: No: D o not add to previous draw Performed By: #### 1 69, 48102 #### [facility] [address] [place] [address], [place] GFR/1.73 sq M.predicted among blacks MDRD (S/P/Bld) [Vol rate/Area] mL/min/{1.73_m2} Normal >60 [facility] Comment on above: Order Comment: No: D o not add to previous draw Performed By: #### 1 69, 07945 #### [facility] [address] [place] [address], [place] GFR/1.73 sq M.predicted among non-blacks MDRD (S/P/Bld) [Vol rate/Area] mL/min/{1.73_m2} Normal >60 [facility] Comment on above: Order Comment: No: D o not add to previous draw Performed By: #### 1 69, 29030 #### [facility] [address] [place] [address], [place] Glucose [Mass/Vol] 168 mg/dL High 70-100 [facility] Comment on above: Order Comment: No: D o not add to previous draw Performed By: #### 1 69, 92773 #### [facility] [address] [place] [address], [place] Potassium [Moles/Vol] 3.8 mmol/L Normal 3.5-5.1 [facility] Comment on above: Order Comment: No: D o not add to previous draw Performed By: #### 1 69, 69128 #### [facility] [address] [place] [address], [facility] Sodium [Moles/Vol] 140 mmol/L Normal 136-145 [facility] Comment on above: Order Comment: No: D o not add to previous draw Performed By: #### 1 69, 30036 #### [facility] [address] [place] [address], [facility] Urea nitrogen [Mass/Vol] 19 mg/dL Normal 7-25 [facility] Comment on above: Order Comment: No: D o not add to previous draw Performed By: #### 1 69, 40359 #### [facility] [address] [place] [address], [facility] CBC COMPLETE BLOOD COUNTon 0 - Erythrocyte distribution width (RBC) [Ratio] 15.0 % Normal 11.5-15.0 [facility] Comment on above: Order Comment: No: D o not add to previous draw Performed By: #### 5 0608 #### [facility] [address] [place] [address], [facility] Hematocrit (Bld) [Volume fraction] 40.8 % Normal 39.0-50.0 [facility] Comment on above: Order Comment: No: D o not add to previous draw Performed By: #### 5 0608 #### [facility] [address] [place] [address], [facility] Hemoglobin (Bld) [Mass/Vol] 12.7 g/dL Low 13.0-17.0 [facility] Comment on above: Order Comment: No: D o not add to previous draw Performed By: #### 5 0608 #### [facility] [address] [place] [address], [facility] MCH (RBC) [Entitic mass] 25.4 pg Low 27.0-33.0 [facility] Comment on above: Order Comment: No: D o not add to previous draw Performed By: #### 5 0608 #### [facility] [address] [place] [address], [facility] MCHC (RBC) [Mass/Vol] 31.1 g/dL Low 32.0-35.0 [facility] Comment on above: Order Comment: No: D o not add to previous draw Performed By: #### 5 0608 #### [facility] [address] [place] [address], [facility] MCV (RBC) [Entitic vol] 81.6 fL Low 82.0-98.0 [facility] Comment on above: Order Comment: No: D o not add to previous draw Performed By: #### 5 0608 #### [facility] [address] [place] [address], [facility] Nucleated RBC/100 WBC (Bld) [Ratio] 0 % Normal 0-0 [facility] Comment on above: Order Comment: No: D o not add to previous draw Performed By: #### 5 0608 #### [facility] [address] [place] [address], [facility] PLAT CNT 130 10*3/uL Low 150-400 [facility] Comment on above: Order Comment: No: D o not add to previous draw Performed By: #### 5 0608 #### [facility] [address] [place] [id number], [facility] RBC (Bld) [#/Vol] 5.00 10*6/uL Normal 4.20-5.70 [facility] Comment on above: Order Comment: No: D o not add to previous draw Performed By: #### 5 0608 #### [facility] [address] [place] [id number], [facility] WBC (Bld) [#/Vol] 4.18 10*3/uL Normal 4.00-10.60 [facility] Comment on above: Order Comment: No: D o not add to previous draw Performed By: #### 5 0608 #### [facility] [address] [place] [address], [facility] MAGNESIUM BLOODon 12-18-2020 Magnesium [Mass/Vol] 1.8 mg/dL Low 1.9-2.7 [facility] Comment on above: Order Comment: No: D o not add to previous draw Performed By: #### 1 0070, 28945 #### [facility] [address] POC GLUCOSE EDon 12-18-2020 Glucose [Mass/Vol] 174 mg/dL High 70-100 [facility] Comment on above: Performed By: #### 0 0071 #### [facility] [address] [facility] [place] [address], [facility] Glucose [Mass/Vol] 134 mg/dL High 70-100 [facility] Comment on above: Performed By: #### 0 0071 #### [facility] [address] [facility]. [address] POC SARS COV2 ANTIGEN NEGATI VEon 12-17-2020 POC SARS COV2 ANTIGEN NEG Negative Normal NEGATIVE [facility] Comment on above: Result Comment: Nega tive Results are presumptive and confirmation with a molecular assay, if necessary, for patient management may be performed. Negative results do not rule out SARS-CoV-2 infection and should not be used as the sole basis for treatment or patient management decisions, including infection control decisions. Negative results should be considered in the context of a patient?s recent exposures, history and the presence of clinical signs and symptoms consistent with COVID-19. The [employer] COVID-19 Antigen test is a lateral flow immunochromatographic assay intended for the qualitative detection of the nucleocapsid protein antigen from SARS-CoV-2 in nasopharyngeal or anterior nasal swab specimens directly collected from individuals suspected of COVID-19 by their healthcare provider within five days of symptom onset. Testing is limited to laboratories certified under the Clinical Laboratory Improvement Amendments of 1988 (CLIA), 42 U.S.C. ???262a, that meet the requirements to perform moderate, high or waved complexity tests. This test is authorized for use at the Point of Care (POC), i.e., in patient care settings operating under a CLIA Certificate of Waiver, Certificate of Compliance, or Certificate of Accreditation. Performed By: #### 3 1944 #### [facility] [place] [address], [facility] HOSPon 06-19-2017 HOSP Office Visit OPHT (OPTMAN) ELSA ESPINOZA ([id number]) 1955 [facility] Time Provider Ambjkgzxxk48/11/17 1:00 PM JATIN RICHMOND II During your visit today, we recorded the following information about you:Jatin Richmond II, OD 06/19/2017 3:09 PM SignedASSESSMENT/PLAN:1. Disability examination - ICD9: V68.01, ICD10: Z02.71 (primary diagnosis)Patient understands that today's examination is for purposes of disabilitydetermination only. Patient will continue all ongoing care with previouslyestablished care givers.2. 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 Visual field loss following cerebrovascular accident - ICD9: 438.7, ICD10:I69.398, H54.7Inferior optic nerve pallor OU corresponds to bilateral superior field loss.Foveal sparing both eyes.4. Controlled type 2 diabetes mellitus without complication, without long-termcurrent use of insulin (HCC) - ICD9: 250.00, ICD10: E11.9Examination shows no ocular diabetic complications today.5. Vitreous floaters of both eyes - ICD9: 379.24, ICD10: H43.393Vitreal floaters stable both eyes. Retinas flat and intact with no apparentretinal tear or traction.6. Hyperopia, bilateral - ICD9: 367.0, ICD10: H52.037. Regular astigmatism, bilateral - ICD9: 367.21, ICD10: H52.2238. Presbyopia - ICD9: 367.4, ICD10: H52.4Glasses power stable.I have confirmed and edited as necessary the relevant ophthalmic history,review of systems, surgical history, and ophthalmological examination findingsas obtained by the ophthalmic technical staff. I have seen and examinedElsa Espinoza. I have discussed the examination findings and diagnosis withthe patient and/or the patient's family. I have also reviewed and agree withthe assessment and plan as stated above and agree with all its relevantcomponents. I gave the patient the opportunity to ask questions about thefindings, diagnosis, and treatment options.Jatin Richmond, II, ODReferring Provider: SELF [200]Allergies As of Date: 06/19/2017 Noted Allergy ReactionDILAUDID (HYDROMORPHONE (BULK)) 06/19/2017 14 - Other: See Comments Comments: Patient says he codedMARINOL (DRONABINOL) 06/19/2017 1 - Mental Status Change Comments: ConfusedDate Reviewed: 06/19/2017Reviewed by: Jatin Richmond II - Fully AssessedReason for Visit: Vision Loss [2068] Cmt: [place] Disability Exam Diabetes [34]Reason For Visit History RecordedPrimary Visit Diagnosis:Disability examination [Z02.71] Other Visit Diagnoses: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 [H47.013] Visual field loss following cerebrovascular accident [I69.398, H54.7] Controlled type 2 diabetes mellitus without complication, without long-term current use of insulin (HCC) [E11.9] Vitreous floaters of both eyes [H43.393] Hyperopia, bilateral [H52.03] Regular astigmatism, bilateral [H52.223] Presbyopia [H52.4]Order(s):VISUAL FIELD 30-2 OU (BOTH EYES) [[id number]] Order #: [id number]: 1 VISUAL FIELD WRIGHT OU (BOTH EYES) [[id number]] Order #: [id number]: 1 OCT OPTIC NERVE CIRRUS OU (BOTH EYES) [[id number]] Order #: [id number]: 1Prescriptions as of 06/19/2017 Sig: ATORVASTATIN 10 MG TABLET CLOPIDOGREL 75 MG TABLET MECLIZINE 25 MG TABLET EFFEXOR ORAL Take by mouth. LISINOPRIL ORAL Take by mouth. JANUVIA ORAL Take by mouth. TAMSULOSIN ORAL Take by mouth. SUPER B COMPLEX ORAL Take by mouth. LENKA MULTIVITAMIN FOR MEN ORAL Take by mouth. CINNAMON ORAL Take by mouth. RANEXA ORAL Take by mouth. METFORMIN ORAL Take by mouth. OMEGA 3 ORAL Take by mouth. METOPROLOL SUCCINATE ORAL Take by mouth. PANTOPRAZOLE 40 MG TABLET,DEL* MAGNESIUM ORAL Take by mouth. FOLIC ACID ORAL Take by mouth. IRON ORAL Take by mouth. LUTEIN ORAL Take by mouth. PROBIOTIC ORAL Take by mouth. 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 Disability examination - ICD9: V68.01, ICD10: Z02.71 (primarydiagnosis)Patient understands that today's examination is for purposes of disabilitydetermination only. Patient will continue all ongoing care withpreviously established care givers.2. 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 Visual field loss following cerebrovascular accident - ICD9: 438.7,ICD10: I69.398, H54.7Inferior optic nerve pallor OU corresponds to bilateral superior fieldloss. Foveal sparing both eyes.4. Controlled type 2 diabetes mellitus without complication, withoutlong-term current use of insulin (HCC) - ICD9: 250.00, ICD10: E11.9Examination shows no ocular diabetic complications today.5. Vitreous floaters of both eyes - ICD9: 379.24, ICD10: H43.393Vitreal floaters stable both eyes. Retinas flat and intact with noapparent retinal tear or traction.6. Hyperopia, bilateral - ICD9: 367.0, ICD10: H52.037. Regular astigmatism, bilateral - ICD9: 367.21, ICD10: H52.2238. Presbyopia - ICD9: 367.4, ICD10: H52.4Glasses power stable.I have confirmed and edited as necessary the relevant ophthalmic history,review of systems, surgical history, and ophthalmological examinationfindings as obtained by the ophthalmic technical staff. I have seen andexamined Elsa Espinoza. I have discussed the examination findings anddiagnosis with the patient and/or the patient's family. I have alsoreviewed and agree with the assessment and plan as stated above and agreewith all its relevant components. I gave the patient the opportunity toask questions about the findings, diagnosis, and treatment options.Jatin Richmond, II, OD Normal [facility] Vital Signs Date Time Vital Sign Value Performing Clinician Facility 11-06-2023 10:45-0500 Body height 180.3 cm Leo Chavarria DO Work Phone: [facility] 11-06-2023 10:45-0500 Body mass index (BMI) [Ratio] 25.52 kg/m2 Leo Chavarria DO Work Phone: [facility] 11-06-2023 10:45-0500 Body weight 83.01 kg Leo Chavarria DO Work Phone: [facility] 11-06-2023 10:45-0500 Diastolic blood pressure 94 mm[Hg] Leo Chavarria DO Work Phone: [facility] 11-06-2023 10:45-0500 Heart rate 78 /min Leo Chavarria DO Work Phone: [facility] 11-06-2023 10:45-0500 Systolic blood pressure 160 mm[Hg] Leo Chavarria DO Work Phone: [facility] 11-06-2021 07:30-0500 58 1 Nikunj A Naderer Work Phone: [facility] [place] Work Phone: Comment on above: [id number] 10-11-2021 09:12-0500 Body height 180.34 cm Nikunj Fuentes Naderer Work Phone: [facility] 250 DO Work Phone: 10-11-2021 09:12-0500 Body mass index (BMI) [Ratio] 25.38 kg/m2 Nikunj Fuentes Naderer Work Phone: [facility] 250 DO Work Phone: 10-11-2021 09:12-0500 Body surface area Derived from formula 2.03 m2 Nikunj Fuentes Naderer Work Phone: [facility] 250 DO Work Phone: 10-11-2021 09:12-0500 Body weight 82.56 kg Nikunj Fuentes Naderer Work Phone: [facility] 250 DO Work Phone: 10-11-2021 09:12-0500 Diastolic blood pressure 74 mm[Hg] Nikunj Fuentes Naderer Work Phone: [facility] 250 DO Work Phone: 10-11-2021 09:12-0500 Heart rate 65 /min Nikunj Fuentes Naderer Work Phone: [facility] 250 DO Work Phone: 10-11-2021 09:12-0500 Systolic blood pressure 134 mm[Hg] Nikunj A Naderer Work Phone: [facility] 250 DO Work Phone: Encounters Encounter Date Encounter Type Care Provider Facility Start: 11-18-2023 End: 11-18-2023 ambulatory Fred Chao Facility:[facility] Start: 11-06-2023 End: 11-06-2023 ambulatory [facility] Start: 11-06-2023 End: 11-06-2023 Office outpatient visit 25 minutes Leo Niyah Deon DO Work Phone: [facility] Comment on above: Echocardiogram abnor mal; Essential hypertension; 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; History of PTCA; Mixed hyperlipidemia; S/P CABG (coronary artery bypass graft); Small bowel obstruction ([facility]); BMI 25.0-25.9,adult; Type 2 diabetes mellitus without complication, without long-term current use of insulin ([facility]) Start: 10-21-2023 End: 10-21-2023 ambulatory NISH POLLACK Not Available Start: 10-21-2023 End: 10-21-2023 Office outpatient new 30 minutes Nish Pollack 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-FAMILY SERVICE WORKER Work Phone: [facility] Comment on above: Seborrheic keratosis ; Lentigines; Nevus; Actinic keratosis; Common wart; Inflamed seborrheic keratosis Start: 01-08-2023 ambulatory Marta ZULUAGA Facility:[facility] Betancourt Start: 01-04-2023 End: 01-05-2023 ambulatory Marta ZULUAGA Facility:CD:[id number] Start: 01-04-2023 End: 01-05-2023 Evaluation and management of inpatient SHAIKH Lincoln ABEL Facility:H1 Start: 11-03-2022 End: 11-04-[address] MONTY OCONNELL . Facility:H1 Start: 08-27-2022 Rx Renewal Nikunj Mari Work Phone: [facility] 250 DO Work Phone: Start: 08-19-2022 [facility] Start: 08-18-2022 End: 08-20-2022 [facility] Start: 08-18-2022 End: 08-18-[address] NIKUNJ MARI Facility:H1 Start: 11-20-2021 Chart Update Nikunj A Naderer Work Phone: [facility] 250 DO Work Phone: Start: 11-15-2021 [facility], Provider: Leo Chavarria, Status: Pen, Time: 1:00 PM Nikunj Fuentes Naderer Work Phone: [facility] 250 DO Work Phone: Start: 11-09-2021 Telephone encounter Nikunj Fuentes Nad erer Work Phone: [facility] 250 DO Work Phone: Start: 11-06-2021 Chart Update Nikunj Fuentes Naderer Work Phone: [facility] 250 DO Work Phone: Start: 11-06-2021 Patient encounter procedure Nikunj Fuentes Naderer Work Phone: [facility] Work Phone: Start: 10-25-2021 AUDIT Nikunj A Naderer Work Phone: [facility] 250 DO Work Phone: Start: 03-20-2021 End: 03-21-2021 ambulatory AHMED EL-LEOPOLDOWAHRY Facility:[facility] Start: 03-09-2021 End: 04-03-2021 [facility] Start: 02-07-2021 End: 02-08-2021 Emergency department patient visit ESE KELLER Facility:[facility] Start: 12-17-2020 End: 12-18-2020 Evaluation and management of inpatient SILASJESSICA SALAZAR Facility:[facility] Start: 09-12-2017 End: 09-13-2017 [facility]ulatory [facility] Start: 06-19-2017 End: 06-20-2017 Ambulatory [facility] Procedures Date Procedure Procedure Detail Performing Clinician Start: 11-06-2023 Lipid panel LEO DUMONT Start: 11-04-2023 History of coronary artery bypass grafting S/P CABG (coronary artery bypass graft) Leo Deon WATTS Work Phone: Start: 11-04-2023 History of percutane ous transluminal coronary angioplasty History of PTCA Leo Rolonelie WATTS Work Phone: Start: 10-21-2023 End: 10-21-2023 CRYOTHERAPY SKIN LESION Nish Pollack 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-FAMILY SERVICE WORKER Work Phone: Appendectomy Nikunj Fuentes Naderer Work Phone: Cardiac catheterization Nikunj Alfredo Naderer Work Phone: Cholecystectomy Nikunj Daleyer er Work Phone: Colonoscopy Nikunj Alfredo Naderer Work Phone: Comment on above: [id number] Mary Rodriguez kes; Coronary artery bypa ss graft Nikunj A Naderer Work Phone: History of coronary artery bypass grafting S/P CABG (coronary artery bypass graft) Nikunj Alfredo Naderer Work Phone: Comment on above: 2001 x5; History of coronary artery bypass grafting S/P CABG (coronary artery bypass graft) Leo Niyah Chavarria DO Work Phone: History of percutane ous transluminal coronary angioplasty History of PTCA Nikunj Alfredo Naderer Work Phone: History of percutane ous transluminal coronary angioplasty History of PTCA Leo Chavarria DO Work Phone: Operation on colon Nikunj Fuentes Na derer Work Phone: Plan of Treatment Date Care Activity Detail Author Start: 07-31-2025 Glaucoma screening Diabetes: R etinopathy Screening [facility] Start: 10-22-2024 End: 10-22-2024 Patient encounter procedure 10/22/2024 10:25 AM EST Office Visit [facility] [address] [place] [phone] Nish Pollack APRN-FAMILY SERVICE WORKER [address] [place] [address] [facility] Start: 10-22-2024 End: 10-22-2024 Patient encounter procedure 10/22/2024 9:10 AM EST Office Visit [facility] [address] [place] [address] [address] [place] [phone] Leo Chavarria, DO [address] [facility] [address] [place] [address] [facility] Start: 01-09-2024 End: 01-09-2024 Clinical Support 01/09/2024 8:30 AM EDT Clinical Support [address] [phone] [facility] Start: 01-08-2024 End: 01-08-2024 Patient encounter procedure 01/08/2024 7:00 AM EDT Office Visit [facility] [address] [place] [phone] Nikunj Mari MD [address] [place] [address] [facility] Start: 11-06-2023 End: 11-06-2024 Lipid 1996 panel - Serum or Plasma Lipid Panel Lab Routine Mixed hyperlipidemia Expected: 11/06/2023 (Approximate), Expires: 11/06/2024 [facility] Work Phone: Comment on above: Expected: 11/06/2023 (Approximate), Expires: 11/06/2024 Start: 05-10-2023 Influenza vaccination Influenza Vacc ine (#1) [facility] Start: 04-04-2022 FUV, Provider: Leo Chavarria, Status: Pen, Time: 9:00 AM [facility]UV, Provider: Leo Chavarria, Status: Pen, Time: 9:00 AM [facility] 250 DO Work Phone: Start: 11-23-2021 Hemoglobin A1c measurement Diabetes: Hemoglobin A1C [facility] Start: 11-13-2021 FUV, Provider: Leo Chavarria, Status: Pen, Time: 10:20 AM FUV, Provider: Leo Chavarria, Status: Pen, Time: 10:20 AM [facility] 250 DO Work Phone: Start: 11-06-2021 STRESS NUC, Provider : [place] CAMPOSI NUCLEAR 01,[id number], Status: Pen, Time: 7:30 AM STRESS NUC, Provider: [place] HHVI NUCLEAR 01,[id number], Status: Pen, Time: 7:30 AM [facility] 250 DO Work Phone: Start: 11-16-2018 Screening for malign ant neoplasm of colon [facility] Start: 09-09-2014 Pneumococcal Vaccine : 65+ Years (2 - PCV) Pneumococcal Vaccine: 65+ Years (2 - PCV) [facility] Start: 2006 Zoster Vaccines (1 o f 2) Zoster Vaccines (1 of 2) [facility] Start: 1978 DTaP/Tdap/Td Vaccine s (1 - Tdap) DTaP/Tdap/Td Vaccines (1 - Tdap) [facility] Start: 1975 Urine screening for protein Diabetes: Urine Protein Screening [facility] Start: 1974 Hepatitis C screening Hepatitis C Sc [facility] Start: 1966 Diabetic foot examination Diabetes: Foot Exam [facility] Start: 1966 Glaucoma screening Diabetes: R etinopathy Screening [facility] Start: 1962 Pneumococcal Vaccine : 65+ Years (1 - PCV) Pneumococcal Vaccine: 65+ Years (1 - PCV) [facility] Start: 1956 COVID-19 Vaccine (#1) COVID-19 Vacci ne (#1) [facility] Start: 1956 Hemoglobin A1c measurement Diabetes: Hemoglobin A1C [facility] Start: 1956 Lipid panel Lipid Panel [facility] Start: 1956 Medicare Annual Wellness Visit Medicare Annual Wellness Visit (AWV) [facility] Start: 1956 Screening for malign ant neoplasm of colon [facility] Immunizations Immunization Date Immunization Notes Care Provider Fa cility 06-05-2022 influenza virus vacc ine, unspecified formulation Nish Pollack 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-[facility] Work Phone: [facility] 06-15-2021 influenza, high dose seasonal, preservative-free Nikunj A Naderer Work Phone: [facility] [employer] DO Work Phone: 07-31-2020 Influenza, injectabl e, Madin Kamla Canine Kidney, preservative free, quadrivalent Nikunj A Naderer [facility] Work Phone: 06-09-2020 influenza virus vacc ine, unspecified formulation Nikunj A Naderer Work [facility] Work Phone: 07-06-2019 Influenza, injectabl e, Madin Kamla Canine Kidney, preservative free, quadrivalent Nikunj A Naderer Work Phone: [facility] Work Phone: 06-09-2019 influenza virus vacc ine, unspecified formulation Nikunj A Naderer [facility] Work Phone: 06-09-2018 influenza virus vacc ine, unspecified formulation [facility]unj A Naderer [facility] Work Phone: 06-25-2017 influenza virus vacc ine, unspecified formulation Nikunj A Naderer [facility] Work Phone: 06-09-2017 influenza, injectabl e, quadrivalent, preservative free Nikunj A Naderer Work Phone: [facility] Work Phone: 06-09-2016 influenza virus vacc ine, unspecified formulation Nikunj A Naderer Work Phone: [facility] 250 DO Work Phone: 09-09-2013 pneumococcal polysaccharide vaccine, 23 valent Nikunj Mari Work Phone: [facility] 250 DO Work Phone: Payers Date Payer Category Payer Self-pay 2023 Unknown [id number] 2019 Medicare [id number] 2016 Unknown 2016 Unknown [id number] 1959 Medicare [id number] 1959 Unknown [id number] 1956 Unknown [id number] 2.16.8 [id number] 1956 Unknown [id number] 2.16.8 [id number] 1956 Unknown [id number] 2.16.8 [id number] 1956 Unknown [id number] 2.16.8 [id number] 1956 Unknown [id number] 2.16.84 [id number] 1956 Unknown [id number] 2.16.84 [id number] 1956 Unknown [id number] 2.16.84 [id number] 1956 Unknown [id number] 2.16.8 [id number] 1956 Unknown [id number] 2.16.8 [id number] 1956 Unknown [id number] 2.16.84 [id number] 1956 Unknown [id number] 2.16.8 [id number] Private Health Insurance [id number] Unknown [id number] 2.16.8 [id number] Social History Date Type Detail Facility Start: 10-21-2023 End: 11-06-2023 No illicit drug use No illicit drug use [facility] 250 DO Work Phone: Comment on above: 1 cup of coffee miller y and 1-2 20oz pop; 1 beer every night; Start: 07-10-2023 End: 11-04-2023 Tobacco smoking status NJIS Never smoked tobacco [facility] Start: 10-21-2023 Alcohol intake Lifetime non-d barry (finding) [facility] Start: 10-21-2023 End: 11-06-2023 Tobacco use panel [facility] Start: 07-10-2023 Alcohol Comment caffeine: 1-2 cups per day [facility] Start: 1955 Sex Assigned At Not on file N [facility] Start: 11-06-2023 Alcohol intake Ex-drinker (finding) [facility] Work Phone: Start: 10-27-2023 End: 11-06-2023 Exposure to SARS-CoV-2 (event) Not sure [facility] Clinical Notes 12-19-2020 to 11-06-2023 Leo Chavarria DO - 11/06/2023 10:30 AM ESTPatient InstructionsNish Pollack, MARIELLE-MARY LOU - 10/21/2023 9:50 AM EST Note Date & Type Note Facility 11-06-2023 History of Present illness Narrative Subjective Elsa Espinoza is a 68 y.o. male Chief Complaint Annual Exam 68-year-old gentleman here for follow-up and doing well. He was recently evaluated at [facility] for small bowel obstruction. He historically had complicated multiple bowel surgeries in the remote past now with residual scar tissue leading to multiple SBO's within the last couple years he has been stable for the last 6 months. Last time I saw him was November 2021 for elective heart catheterization. He has a history of CABG; SVG to the RCA, sequential SVG to the first and second OM and a HONG to the LAD were patent the SVG to the diagonal was occluded and he has normal left ventricular function. He has no current angina, heart failure or nitrate usage or hospitalizations. He is slightly hypertensive on today's exam. He has underlying diabetes, essential hypertension and hyperlipidemia the above-mentioned ASHD with revascularization and previous pancreatitis complicated by bowel surgeries and SBO's. Will continue current therapies obtain appropriate laboratories, follow-up with blood pressure check, see him again in 1 year Review of Systems All other systems reviewed and are negative. Vitals: 11/06/23 1045 BP: (!) 160/94 BP Location: Left arm Patient Position: Sitting Pulse: 78 Weight: 83 kg (183 lb) Height: 1.803 m (5' 11 ) Objective Physical Exam Constitutional: Appearance: Normal appearance. HENT: Nose: Nose normal. Neck: Vascular: No carotid bruit. Cardiovascular: Rate and Rhythm: Normal rate. Pulses: Normal pulses. Heart sounds: Normal heart sounds. Pulmonary: Effort: Pulmonary effort is normal. Abdominal: General: Bowel sounds are normal. Palpations: Abdomen is soft. Musculoskeletal: General: Normal range of motion. Cervical back: Normal range of motion. Right lower leg: No edema. Left lower leg: No edema. Skin: General: Skin is warm and dry. Neurological: General: No focal deficit present. Mental Status: He is alert. Psychiatric: Mood and Affect: Mood normal. Behavior: Behavior normal. Thought Content: Thought content normal. Judgment: Judgment normal. Allergies Jacki inhibitors, Dronabinol, and Hydromorphone Current Medications Current Outpatient Medications: ascorbic acid (Vitamin C) 500 mg tablet, Take 1 tablet (500 mg) by mouth once daily., Disp: , Rfl: ascorbic acid (Vitamin C) 500 mg tablet, Take 1 tablet (500 mg) by mouth once daily., Disp: , Rfl: aspirin 81 mg EC tablet, Take 1 tablet (81 mg) by mouth once daily., Disp: , Rfl: Effexor XR 150 mg 24 hr capsule, Take 1 capsule (150 mg) by mouth once daily., Disp: , Rfl: ferrous sulfate, 325 mg ferrous sulfate, tablet, Take 1 tablet by mouth once daily., Disp: , Rfl: folic acid (Folvite) 400 mcg tablet, Take 1 tablet (0.4 mg) by mouth once daily., Disp: , Rfl: gabapentin (Neurontin) 300 mg capsule, Take 1 capsule (300 mg) by mouth 2 times a day., Disp: , Rfl: insulin degludec (Tresiba U-100 Insulin) 100 unit/mL injection, Inject under the skin. As directed., Disp: , Rfl: isosorbide mononitrate ER (Imdur) 60 mg 24 hr tablet, TAKE 1 TABLET BY MOUTH EVERY DAY, Disp: 90 tablet, Rfl: 3 isosorbide mononitrate ER (Imdur) 60 mg 24 hr tablet, Take 1 tablet (60 mg) by mouth once daily., Disp: , Rfl: Januvia 100 mg tablet, Take 1 tablet (100 mg) by mouth once daily., Disp: , Rfl: Lipitor 10 mg tablet, Take 1 tablet (10 mg) by mouth once daily at bedtime., Disp: , Rfl: losartan (Cozaar) 25 mg tablet, Take 1 tablet (25 mg) by mouth once daily., Disp: , Rfl: magnesium oxide 400 mg magnesium capsule, Take 1 capsule (400 mg) by mouth once daily., Disp: , Rfl: meclizine (Antivert) 12.5 mg tablet, Take 1 tablet (12.5 mg) by mouth 3 times a day as needed., Disp: , Rfl: metFORMIN (Glucophage) 1,000 mg tablet, Take 1 tablet (1,000 mg) by mouth every 12 hours., Disp: , Rfl: multivit-min/ferrous fumarate (MULTI VITAMIN ORAL), Take 1 tablet by mouth once daily., Disp: , Rfl: nitroglycerin (Nitrostat) 0.4 mg SL tablet, Place 1 tablet (0.4 mg) under the tongue every 5 minutes if needed for chest pain (Report to the ER or call 911 after third dose.)., Disp: , Rfl: omega-3 fatty acids-fish oil (One-Per-Day Naoma-3) 684-1,200 mg capsule, Take 1 capsule (1,200 mg) by mouth 2 times a day., Disp: , Rfl: pantoprazole (ProtoNix) 20 mg EC tablet, Take 1 tablet (20 mg) by mouth 2 times a day., Disp: , Rfl: Ranexa 500 mg 12 hr tablet, Take 1 tablet (500 mg) by mouth every 12 hours., Disp: , Rfl: sucralfate (Carafate) 1 gram tablet, Take 1 tablet (1 g) by mouth every 12 hours., Disp: , Rfl: tamsulosin (Flomax) 0.4 mg 24 hr capsule, Take 1 capsule (0.4 mg) by mouth once daily., Disp: , Rfl: Toprol XL 25 mg 24 hr tablet, Take 1 tablet (25 mg) by mouth once daily., Disp: , Rfl: vit A/vit C/vit E/zinc/copper (PRESERVISION AREDS ORAL), Take 1 tablet by mouth once daily at bedtime., Disp: , Rfl: Vitamin D3 50 mcg (2,000 unit) tablet, Take 1 tablet (2,000 Units) by mouth once daily., Disp: , Rfl: Assessment/Plan 1. Echocardiogram abnormal 2. Essential hypertension 3. 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 4. History of PTCA 5. Mixed hyperlipidemia 6. S/P CABG (coronary artery bypass graft) 7. Small bowel obstruction (CMS/HCC) 8. BMI 25.0-25.9,adult 9. Type 2 diabetes mellitus without complication, without long-term current use of insulin (CMS/HCC) Scribe Attestation By signing my name below, I, Ignacio Mederos LPN attest that this documentation has been prepared under the direction and in the presence of Leo Chavarria DO. Provider Attestation - Scribe documentation All medical record entries made by the Scribe were at my direction and personally dictated by me. I have reviewed the chart and agree that the record accurately reflects my personal performance of the history, physical exam, discussion and plan. documented in this encounter [facility] Work Phone: 11-06-2023 Instructions Anjali Hicks LPN - 11/06/2023 10:30 AM EST Please bring all medicines, vitamins, and herbal supplements with you when you come to the office. Prescriptions will not be filled unless you are compliant with your follow up appointments or have a follow up appointment scheduled as per instruction of your physician. Refills should be requested at the time of your visit. BMI was above normal measurement. Current weight: 83 kg (183 lb) Weight change since last visit (-) denotes wt loss 1 lbs Weight loss needed to achieve BMI 25: 4.1 Lbs Weight loss needed to achieve BMI 30: -31.6 Lbs Provided instructions on dietary changes Provided instructions on exercise. documented in this encounter [facility] Work Phone: 10-21-2023 History of Present illness Narrative Skin Check Location: Patient requests a skin examination from the waist up Dermatologic history: no history of skin cancer, no history of atypical moles, no family history of melanoma Last visit: New patient Lesion(s) Location: Back Duration: Years Quality: Denies itch, bleeding, and drainage Modifying factors: None Associated symptoms: Rough bump Treatments: None All pertinent medical history, medications, and allergies were reviewed. General Exam: alert , oriented to person, place, and time , normal affect, well appearing, Accompanied by spouse A complete skin exam was offered, pt declined. Areas not examined despite medical recommendation: From the waist down Scalp, Examined Head, Face Examined Neck Examined Chest Examined Back Examined Abdomen Examined Right arm Examined Left arm Examined Hands Examined Digits,nails: Examined 1. Seborrheic keratosis Stuck on verrucous, variably pigmented papules and plaques. Patient was counseled regarding these benign growths. Removal is normally not necessary, but they may be removed if they are symptomatic or for cosmetic reasons. 2. Lentigines Scattered engel macules in sun-exposed areas. The patient was informed that lentigines are benign pigmented lesions that occur on sun-exposed and sun-damaged skin. No treatment is necessary. Recommended regular use of broad spectrum sunscreen SPF 30 or higher 3. Nevus Engel to brown macules and papules with similar morphologic features Counseled regarding these benign growths. Rarely a nevus can develop into malignant melanoma, so any changing nevi should be promptly re-evaluated 4. Actinic keratosis (15) Left Preauricular Area, Left Presybeterian, Mid Frontal Scalp, Mid Lower Vermilion Lip (3), Mid Occipital Scalp (3), Mid Parietal Scalp (4), Right Inferior [place], Right Mid [place] Erythematous scaly papules Patient was counseled regarding these sun-induced growths that can develop into squamous cell carcinoma if left untreated. Discussed treatment with cryotherapy. It was emphasized that any treated lesions that fail to resolve should be re-evaluated. Cryotherapy performed today; see procedure note Diagnosis: Actinic keratosis Indication: Precancerous Location: see skin exam Consent: Verbal consent was obtained and risks were discussed, including, but not limited to risks of scarring, darker or range aid pigmentary changes, recurrence, incomplete removal and infection. Method: Liquid nitrogen was used to treat the lesion(s) with two 5-10 second freeze-thaw cycles. Number of lesions treated: 15 Post-procedure instructions: Instructions were given orally and in writing. The office will be contacted if the lesion fails to resolve despite treatment, or if a side effect develops such as abnormal crusting, scabbing, redness or tenderness Cryotherapy, skin lesion - Left Preauricular Area, Left Presybeterian, Mid Frontal Scalp, Mid Lower Vermilion Lip (3), Mid Occipital Scalp (3), Mid Parietal Scalp (4), Right Inferior [place], Right Mid [place] 5. Common wart Left [place] Middle 5th Finger Erythematous verrucous papule Patient and/or family member was counseled regarding warts. Treatment options were discussed including cryotherapy, micha antigen injections, and topical Cantharidin. It was explained that it typically requires multiple treatments before the wart(s) completely resolve. The importance of following up every 3-4 weeks was emphasized. Encouraged OTC wart removers in between appointments to hasten resolution. Declines treatment. 6. Inflamed seborrheic keratosis Right Upper Back Inflamed seborrheic keratoses: pink and brown stuck on verrucous scaly papule with surrounding erythema and bloody crust. The patient was informed that symptomatic seborrheic keratoses are benign growths that become inflamed, itchy, tender, traumatized, caught on clothing, or bleed. Symptomatic lesions can be treated with cryotherapy or curretage. Thicker lesions treated with cryotherapy may require more than one treatment. The patient was instructed to notify the office if abnormal redness or tenderness develops at the treatment site. Cryotherapy today, see procedure note. Diagnosis: Inflamed seborrheic keratosis Indication: Inflamed Consent: Verbal consent was obtained and risks were discussed, including, but not limited to risks of scarring, darker or range aid pigmentary changes, recurrence, incomplete removal and infection. Method: Liquid nitrogen was used to treat the lesion(s) with two 5-10 second freeze-thaw cycles Number of lesions treated: 1 Post-procedure instructions: Instructions were given orally and in writing. The office will be contacted if the lesion fails to resolve despite treatment, or if a side effect develops such as abnormal crusting, scabbing, redness or tenderness Cryotherapy, skin lesion - Right Upper Back Next Visit: 1 year, skin check documented in this encounter [facility] 11-03-2022 Note CONSULTATION CONSULTATION DATE: 01/04/2023 REASON FOR CONSULTATION: Partial small bowel obstruction. HISTORY OF PRESENT ILLNESS: Patient is a 67-year-old male, who presented to the emergency room with a one day history of abdominal bloating, pain and nausea. No emesis. He has an extensive history of previous abdominal surgeries, which began in 2012, with gallstone pancreatitis. Sounds like this was a severe case of pancreatitis, resulting in necrosis of the right colon. He did end up requiring a right hemicolectomy with ileostomy, as well as cholecystectomy. Had a prolonged course at [facility] by Dr. Pickard with temporary tracheostomy. In 2014, he underwent reversal of the ileostomy. He has had multiple episodes of small bowel obstructions since that time, including several in 2017, one in 2020, last one was in October. These have all resolved with conservative management with NG decompression and bowel rest. He did have an NG tube placed last night, after CT scan reveal dilated loops of small bowel, up to the area of hi ileocolic anastomosis. He had no free fluid or free air. He does report resolution of his pain this morning. Has had no pain medication overnight. Has had some bilious drainage from the NG tube. He is passing flatus. Denies any nausea. Patient's laboratory values were unremarkable as well. PAST MEDICAL HISTORY: Patient's past medical history is also significant for coronary disease. He has had open heart surgery in 2002, as well as angioplasty with stenting in 2017. He does have type 2 diabetes, hypertension, hypercholesterolemia and history of nephrolithiasis. ALLERGIES: He does report sensitivities to Dilaudid and Marinol, which causes confusion. HOME MEDICATIONS: Include aspirin 81 mg a day, pravastatin, vitamins, ferrous sulfate, folic acid, Neurontin, insulin, isosorbide mononitrate, lisinopril, magnesium oxide, metformin, metoprolol, pantoprazole, Ranexa, Januvia, Carafate, venlafaxine. PAST SURGICAL HISTORY: As noted in the HPI. REVIEW OF SYSTEMS: Ten system review of systems is negative for recent weight loss or weight gain. Denies increased fatigue or light-headedness. Has had no earache or tinnitus. No sinus congestion. No sore throat or hoarseness. No chest pain, palpitations or syncope. No chronic cough, shortness of breath or hemoptysis. He has had the abdominal pain, bloating and nausea. No vomiting. No change in bowel habits. No melena, hematochezia or bright red blood per rectum. No dysuria, frequency, urgency or hematuria. No headaches, seizures or tremors. No easy bruising or bleeding. No heat or cold intolerance. No polydipsia, polyphagia or polyuria. PHYSICAL EXAM: VITAL SIGNS: He is afebrile. Blood pressure is 130/70. Pulse is 67 and regular. Respiratory rate is 18. O2 saturation is 95% on room air. GENERAL: He currently denies pain. HEENT: Normocephalic, atraumatic. Sclerae anicteric. Conjunctiva not injected. Oral mucosa is moist, without lesions. He does have an NG tube in place. NECK: Supple. There is well healed tracheostomy scar. No adenopathy. LUNGS: Clear bilaterally. CARDIAC EXAM: Regular rhythm and rate without appreciable murmurs, rubs or gallops. ABDOMEN: Soft. There are some hypoactive bowel sounds. It is non-distended. There are multiple well healed scars, including a wide midline scar. It is non- tender. There are no masses, hepatosplenomegaly or hernias appreciated. No CVA tenderness. SKIN: Warm and dry without lesions, rashes or ulcers. NEURO EXAM: Non-focal. Non-lateralized. Patient is awake, alert, oriented with appropriate affect. LABORATORY VALUES: Unremarkable. IMAGING: CT scan images were personally reviewed. ASSESSMENT: That of a 67-year-old male with multiple previous abdominal surgeries, now with recurrent small bowel obstruction with dilated loops of small bowel with air/fluid levels in the distal small bowel. Patient appears to be improving with conservative management. RECOMMENDATIONS: I would recommend continued bowel rest and NG tube decompression. Will repeat acute abdominal series today. He may require a small bowel follow through via the NG tube, in order to assess for patency of the small bowel or degree of obstruction at the anastomosis. Currently, there is no indication for any surgical intervention. Thank you for allowing me to participate in his care. I would be happy to follow along with you during his hospital course. CC: Nikunj Mari M.D. [facility] 08-20-2022 Note SW met with pt and h is at bedside. Pt states he is feeling well and hoping to go home today. He states he is independent has no dme or HHC needs at home. His will transport him home. Patient denies any discharge needs. [facility] 08-20-2022 Note Attestation signed by Georgi Harvey MD at 09/19/2022 3:04 PM Teaching Physician's Revisions: None I reviewed the patient's events and examined the patient. I viewed the relevant imaging and reviewed recent laboratory results. Co-morbidities addressed and medications reconciled. The plan of care reviewed with the team. I agree with the findings and the plan of care as documented in the note with the following points of emphasis: Patient condition serious at the time of examination on 2021. Georgi Harvey MD PhD Is a 67-year-old male who presented with a small bowel obstruction, past medical history include coronary artery disease s/p CABG, diabetes mellitus, hypertension, hyperlipidemia, pancreatitis, patient was treated conservatively with NG suction and IV fluid hydration and n.p.o. and he improved clinically, he had 4 bowel movements yesterday and tolerated clear liquids well will advance to regular diet, will replete electrolytes and magnesium, give pain and antiemetics medications, patient given incentive spirometry ambulated and out of bed, Lovenox for DVT prophylaxis and plan for discharge [facility] General Surgery DAILY PROGRESS NOTE Subjective No acute events overnight. Tolerated CLD well. Patient states they had 4 bowel movements yesterday. No issues ambulating. Objective Vitals: Vitals: 08/19/222034 BP: 120/66 Pulse: 72 Resp: 16 Temp: 36.6 ???C (97.8 ???F) SpO2: 94% I/O last 3 completed shifts: In: 2781.7 (34.1 mL/kg) [P.O.:1050; I.V.:1731.7 (21.2 mL/kg)] Out: 850 (10.4 mL/kg) [Urine:425 (0.1 mL/kg/hr); Emesis/NG output:425] Weight: 81.5 kg No intake/output data recorded. Physical Exam General Appearance: Awake, Alert & Oriented x3, No Acute Distress Neck: Trachea Midline, No jugular venous distension Pulmonary: Unlabored breathing on room air. No expiratory wheeze. Cardiac: Regular rate Abdomen: Soft, non-tender, minimally distension, no guarding, no rebound tenderness Extremity: No edema Bilateral Upper and lower Extremities Skin: warm and dry without rash Eyes: no scleral icterus Lines, Drains, Tubes: NG tube removed yesterday Labs: Results from last 7 days Lab Units 08/19/22 0432 WBC AUTO 10*3/uL 5.95 HEMOGLOBIN g/dL 14.5 HEMATOCRIT % 43.3 PLATELETS AUTO 10*3/uL 134* Results from last 7 days Lab Units 08/19/22 0432 SODIUM mmol/L 138 POTASSIUM mmol/L 4.4 CO2 mmol/L 31 BUN mg/dL 16 CREATININE mg/dL 0.91 Medications: atorvastatin, 10 mg, oral, Nightly enoxaparin, 40 mg, subcutaneous, Daily gabapentin, 300 mg, oral, BID isosorbide mononitrate ER, 60 mg, oral, Daily magnesium sulfate, 4 g, intravenous, Once metoprolol succinate XL, 25 mg, oral, Nightly pantoprazole, 20 mg, oral, BID ranolazine, 500 mg, oral, BID tamsulosin, 0.4 mg, oral, Daily venlafaxine XR, 150 mg, oral, Daily lactated Ringer's, 100 mL/hr, Last Rate: 100 mL/hr (08/20/22 0456) Imaging: XR abdomen 1 view Narrative: HISTORY: NG tube placement TECHNIQUE: A portable supine view the abdomen was obtained. COMPARISON: 12/25/2017. FINDINGS: There is nasogastric place with its tip in the stomach. There are dilated loops of small bowel in the left upper abdomen with a paucity of gas in the more distal small bowel raising the possibility of a small bowel obstruction. No free peritoneal air is seen. There are now slightly renal calculi. There is partial demonstration of contrast material in the urinary bladder the source of which is uncertain. Impression: 1. Nasogastric tube in stomach. 2. Gaseous distended loops of small bowel left aspect of the abdomen with a paucity of gas distally suggestive of a mid small bowel obstruction. 3. Nonobstructing right renal calculi. Electronically signed: Mary Bobo. Assessment/Plan Elsa Espinoza is a 67 y.o.male with PMH of h/o CAD s/p CABG, DM, HTN, HLD, pancreatitis who presents to [facility] as a transfer from [facility] for evaluation of SBO. Advance to regular diet today Replete electrolytes to keep K>4 and Mg>2; Mg bolus given this morning Pain and antiemetic control Incentive spirometry Ambulate/OOB DVT ppx: Lovenox Possible discharge if tolerates regular diet well Alfonso Covarrubias MD General Surgery PGY1 Vince Sweeney [address] 08-19-2022 Note Attestation signed by Lazaro Pickard MD at 08/23/2022 12:10 PM Attending Physician Statement I have discussed the case, including pertinent history and exam findings with Dr. Covarrubias, surgical processor and have personally seen the patient. I agree with the assessment, plan and orders as documented. [phone] pager [phone] phone [facility] General Surgery DAILY PROGRESS NOTE Subjective No acute overnight event. Patient does not feel bloated. His pain has improved. He has not passed gas or had a bowel movement. Ambulating with no problems. No leukocytosis. Objective Vitals: Vitals: 08/18/22 2137 BP: 154/83 Pulse: 71 Resp: 18 Temp: 36.5 ???C (97.7 ???F) SpO2: 94% I/O last 3 completed shifts: In: 1800 (22.5 mL/kg) [I.V.:800 (10 mL/kg); IV Piggyback:1000] Out: 850 (10.6 mL/kg) [Urine:425 (0.1 mL/kg/hr); Emesis/NG output:425] Weight: 80.1 kg No intake/output data recorded. Physical Exam General Appearance: AAOx3, NAD Neck: trachea midline, no JVD Pulmonary: good respiratory effort on RA, no audible wheezing Cardiac: RRR Abdomen: soft, non-distended, non-tender, no guarding, no rebound tenderness Extremity: no edema bilateral upper and lower extremities Skin: warm and dry without rash Eyes: no scleral icterus Lines, Drains, Tubes: NGT in place with 425 ml of bilious output overnight Labs: Results from last 7 days Lab Units 08/19/22 0432 WBC AUTO 10*3/uL 5.95 HEMOGLOBIN g/dL 14.5 HEMATOCRIT % 43.3 PLATELETS AUTO 10*3/uL 134* Results from last 7 days Lab Units 08/19/22 0432 SODIUM mmol/L 138 POTASSIUM mmol/L 4.4 CO2 mmol/L 31 BUN mg/dL 16 CREATININE mg/dL 0.91 Medications: atorvastatin, 10 mg, oral, Nightly enoxaparin, 40 mg, subcutaneous, Daily gabapentin, 300 mg, oral, BID isosorbide mononitrate ER, 60 mg, oral, Daily metoprolol succinate XL, 25 mg, oral, Nightly pantoprazole, 20 mg, oral, BID ranolazine, 500 mg, oral, BID tamsulosin, 0.4 mg, oral, Daily venlafaxine XR, 150 mg, oral, Daily lactated Ringer's, 100 mL/hr, Last Rate: 100 mL/hr (08/19/22 0658) Imaging: XR abdomen 1 view Narrative: HISTORY: NG tube placement TECHNIQUE: A portable supine view the abdomen was obtained. COMPARISON: 12/25/2017. FINDINGS: There is nasogastric place with its tip in the stomach. There are dilated loops of small bowel in the left upper abdomen with a paucity of gas in the more distal small bowel raising the possibility of a small bowel obstruction. No free peritoneal air is seen. There are now slightly renal calculi. There is partial demonstration of contrast material in the urinary bladder the source of which is uncertain. Impression: 1. Nasogastric tube in stomach. 2. Gaseous distended loops of small bowel left aspect of the abdomen with a paucity of gas distally suggestive of a mid small bowel obstruction. 3. Nonobstructing right renal calculi. Electronically signed: Mary Bobo. Assessment/Plan Elsa Espinoza is a 67 y.o.male with PMH of h/o CAD s/p CABG, DM, HTN, HLD, pancreatitis who presents to [facility] as a transfer from [facility] for evaluation of SBO. Patient with abdominal pain and concern for SBO on CT. No distention noted. States that pain is improving. Continue NPO Continue NGT to LIS, possible clamping trial later today Continue IVF Pain and antiemetic control Replete electrolytes to keep K>4 and Mg>2 Incentive spirometry Ambulate/OOB DVT ppx: Lovenox Alfonso Covarrubias MD General Surgery Resident, PGY-8 I can be reached via [email or web address] [id number] [facility] 08-19-2022 Note You WILDER [facility] 12-19-2020 Note MR#: [id number] I [facility] Pt. Name: Elsa Espinoza Admitted: 12/17/2020 Discharged: 12/18/2020 Date of : 1955 Physician: Lazaro Pickard M.D. DISCHARGE SUMMARY PRINCIPAL DIAGNOSIS: Small bowel obstruction. SECONDARY DIAGNOSES: Coronary artery disease, status post coronary artery bypass grafting in 2001, diabetes. HOSPITAL COURSE: The patient is a 65-year-old male, who presented to [facility] for complaints of increased abdominal pain with nausea. CT abdomen and pelvis showed a high-grade partial versus complete bowel obstruction. He was transferred to [facility] for further evaluation by Dr. Pickard, who has done multiple abdominal surgeries on the patient. NG was placed at [facility] and had 300 mL of bilious drainage out. The patient overnight had multiple bowel movements. NG tube was discontinued on the . He was tolerating clear liquid diet. He was discharged with instructions to increase diet as tolerated and to follow up with Dr. Pickard in 10 to 14 days. The patient agreed on discharge instructions and was discharged in stable condition. Electronically Signed by: Lazaro Pickard M.D. 12/19/2020 11:25 A ___ Lazaro Pickard M.D. I personally saw this patient on the day of the encounter, performed the boggs portion(s) of the service and participated in the management and confirm the resident's documentation. Please note there may be an additional personal documentation from me. Date Dict: 12/18/2020/02:27 P/Gloria Resendez, FAMILY SERVICE WORKER Date Trans: 12/18/2020 10:36 P/renetta [id number] cc: Nikunj Mari M.D. [address] [place] [id number] [facility] Evaluation note Diagnosis Seborrheic keratosis Lentigines Nevus Benign neoplasm of skin, site unspecified Actinic keratosis Common wart Other specified viral warts Inflamed seborrheic keratosis documented in this encounter [facility] Diagnosis Echocardiogram abnormal Nonspecific (abnormal) findings on radiological and other examination of other intrathoracic organs Essential hypertension Unspecified essential hypertension 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 History of PTCA Postsurgical percutaneous transluminal coronary angioplasty status Mixed hyperlipidemia S/P CABG (coronary artery bypass graft) Postsurgical aortocoronary bypass status Small bowel obstruction (CMS/HCC) Unspecified intestinal obstruction BMI 25.0-25.9,adult Type 2 diabetes mellitus without complication, without long-term current use of insulin (CMS/HCC) documented in this encounter [facility] Work Phone: Reason for referral (narrative)* Consultation (Routine) - Authorized Specialty Diagnoses / Procedures Referred By Contac t Referred To Contact Cardiology Diagnoses Essential hypertension Procedures Follow Up In Cardiology Leo Chavarria DO [address] [facility] [address], [place] [id number] Referral ID Status Reason Start Date Expiration Date V isits Requested Visits Authorized [id number] Authorized 11/06/2023 11/05/2024 1 1 * Consultation (Routine) - Authorized Specialty Diagnoses / Procedures Referred By Contac t Referred To Contact Cardiology Diagnoses 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 Procedures Follow Up In Cardiology Leo Chavarria DO [address] [facility] [address], [address] [address] Leo Chavarria DO [address] [facility] [address], [address] [address] Referral ID Status Reason Start Date Expiration Date V isits Requested Visits Authorized [id number] Authorized 11/06/2023 11/05/2024 1 1 [facility] Work Phone: Summary Purpose Family History No Family History Records FoundUnknown Family Member Name Dates Details Family history of cardiac pa cemaker: Mother(V17.49, Z82.49) Status:Active Family history of myocardial infarction: Father(V17.3, Z82.49) Status:Active Unknown Family Member Name Dates Details Family history of myocardial infarction: Father(V17.3, Z82.49) Status:Active Family history of cardiac pa cemaker: Mother(V17.49, Z82.49) Status:Active Unknown Family Member Name Dates Details Family history of myocardial infarction: Father(V17.3, Z82.49) Status:Active Family history of cardiac pa cemaker: Mother(V17.49, Z82.49) Status:Active Unknown Family Member Name Dates Details Family history of myocardial infarction: Father(V17.3, Z82.49) Status:Active Family history of cardiac pa cemaker: Mother(V17.49, Z82.49) Status:Active Unknown Family Member Name Dates Details Family history of myocardial infarction: Father(V17.3, Z82.49) Status:Active Family history of cardiac pa cemaker: Mother(V17.49, Z82.49) Status:Active Unknown Family Member Name Dates Details Family history of cardiac pa cemaker: Mother(V17.49, Z82.49) Status:Active Family history of myocardial infarction: Father(V17.3, Z82.49) Status:Active Advance Directives No Advanced Directives Records FoundNo Advanced Directives Records FoundNo Advanced Directives Records FoundNo Advanced Directives Records FoundNo Advanced Directives Records FoundNo Advanced Directives Records FoundNo Advanced Directives Records FoundNo Advanced Directives Records FoundNo Advanced Directives Records FoundNo Advanced Directives Records FoundNo Advanced Directives Records FoundNo Advanced Directives Records Found Additional Source Comments INFORMATION SOURCE (unrecogn ized section and content) DATE CREATED AUTHOR 03/04/2018 [facility] DATE CREATED AUTHOR AUTHOR'S ORGANIZ ATION 07/09/2021 [facility] DATE CREATED AUTHOR AUTHOR'S ORGANIZ ATION 10/12/2021 [facility] DATE CREATED AUTHOR AUTHOR'S ORGANIZ ATION 11/13/2021 [facility] DATE CREATED AUTHOR AUTHOR'S ORGANIZ ATION 11/22/2021 [facility] DATE CREATED AUTHOR AUTHOR'S ORGANIZ ATION 02/09/2022 [facility] DATE CREATED AUTHOR AUTHOR'S ORGANIZ ATION 09/20/2022 [facility] DATE CREATED AUTHOR AUTHOR'S ORGANIZ ATION 01/11/2023 [facility] DATE CREATED AUTHOR AUTHOR'S ORGANIZ ATION 01/16/2023 [facility] DATE CREATED AUTHOR AUTHOR'S ORGANIZ ATION 10/22/2023 [facility] d[facility] Specialists EPIC DATE CREATED AUTHOR AUTHOR'S ORGANIZ ATION 11/09/2023 [facility] DATE CREATED AUTHOR AUTHOR'S ORGANIZ ATION 11/22/2023 [facility] (unrecognized sect ion and content) No Status Records FoundNo Status Records FoundNo Status Records FoundNo Status Records FoundNo Status Records FoundNo Status Records FoundNo Status Records FoundNo Status Records FoundNo Status Records FoundNo Status Records FoundNo Status Records Found Care Teams (unrecognized sec tion and content) Administrative Secretary Relationship Specialty Start Date End Date Nikunj Mari MD [address] [place] [address] PCP - General Cardiology 01/18/23 Administrative Secretary Relationship Specialty Start Date End Date Nikunj Mari MD PCP - General 03/22/20 Reason for Visit (unrecogniz ed section and content) Reason Comments Annual Exam FOR RECORDS PERTAINING TO PATIENTS WHO ARE OR HAVE BEEN ENROLLED IN A CHEMICAL DEPENDENCY/SUBSTANCEABUSE PROGRAM, SOME INFORMATION MAY BE OMITTED. This clinical summary was aggregated from multiple sources. Caution should be exercised in using it in the provision of clinical care. This summary normalizes information from multiple sources, and as a consequence, information in this document may materially change the coding, format and clinical context of patient data. In addition, data may be omitted in some cases. CLINICAL DECISIONS SHOULD BE BASED ON THE PRIMARY CLINICAL RECORDS. [facility]. provides no warranty or guarantee of the accuracy or completeness of information in this document.
[2023-12-08 03:51] LABS: Basophils Percent Auto 0.3 % (0.2-2.0); Eosinophils Absolute Auto 0.2 10^3/uL (0.0-0.7); Eosinophils Percent Auto 2.5 % (0.9-7.0); Hematocrit 39.4 % (42.0-54.0); Hemoglobin 13.1 g/dL (14.0-18.0); Immature Granulocytes Abs Auto 0.03 10^3/uL (0.00-0.03); Immature Granulocytes Pct Auto 0.5 % (0.0-0.5); Lymphocytes Absolute Auto 0.7 10^3/uL (1.2-3.8); Lymphocytes Percent Auto 10.3 % (20.5-60.0); Mean Corpuscular HGB Conc 33.2 g/dL (29.9-35.2); Mean Corpuscular Hemoglobin 28.2 pg (25.9-34.0); Mean Corpuscular Volume 84.9 fL (80.0-94.0); Mean Platelet Volume 10.4 fL (9.5-13.5); Monocytes Absolute Auto 0.4 10^3/uL (0.3-0.8); Monocytes Percent Auto 6.8 % (1.7-12.0); Neutrophils Absolute Auto 5.2 10^3/uL (1.4-6.5); Neutrophils Percent Auto 79.6 % (43.0-75.0); Platelet Count 114 10^3/uL (150-450); Red Blood Count 4.64 10^6/uL (4.70-6.10); White Blood Count 6.5 10^3/uL (4.0-11.0)
[2023-12-08 04:13] LABS: Alanine Aminotransferase 22 U/L (16-63); Albumin Globulin Ratio 1.3; Albumin Level 3.7 g/dL (3.4-5.0); Alkaline Phosphatase 61 U/L (46-116); Amylase 36 U/L (25-115); Anion Gap 11.9; Aspartate Amino Transferase 15 U/L (15-37); BUN Creatinine Ratio 12.2; Bilirubin Direct 0.2 mg/dL (0.0-0.2); Bilirubin Total 0.6 mg/dL (0.2-1.0); Carbon Dioxide 29.1 mmol/L (21.0-32.0); Chloride 99 mmol/L (98-107); Estimated GFR (African America >60 (>=60); Estimated GFR (Non-African Ame >60 (>=60); Globulin 2.9 g/dL; Glucose 268 mg/dL (74-106); Sodium 136 mmol/L (136-145); Total Protein 6.6 g/dL (6.4-8.2)
--- NOTE | 2023-12-08 05:37 | XR_ITS ---
The [address] [address] Patient Name: ELSA RUTHERFORD MRN: [id number] date: 1955 Sex: M Assigned Patient Location: ER Current Patient Location: ED.MAIN Accession/Order Number: [id number] Exam Date: 12/08/2023 05:45 Report Date: 12/08/2023 06:19 At the request of: NIGEL DIAZ Procedure: XR chest 1V EXAM: XR chest 1V HISTORY: Nasogastric tube placement. COMPARISON: CT abdomen/pelvis dated 12/08/2023. TECHNIQUE: AP view of the chest and upper abdomen. FINDINGS: Esophageal tube extending into the stomach with the distal tip within the region of the gastric fundus. Sternotomy wires. Mild enlargement of the cardiac silhouette. Mild atheromatous calcification at the aortic arch. Low lung volumes with mild elevation of the left hemidiaphragm. Atelectatic densities at the left lung base. XR/XR chest 1V IMPRESSION: The esophageal tube extending into the stomach with the distal tip within the region of the gastric fundus. Low lung volumes with mild elevation of the left hemidiaphragm and atelectatic density at the left lung base. Electronically authenticated by: ZOLTAN CAMP Date: 12/08/2023 06:19
--- NOTE | 2023-12-08 05:37 | PC.NURSE ---
16f ng tube placed at 55 in left nare pt tolerated well
[2023-12-08] MEDS: MORPHINE SULFATE 4 MG/ML VIAL IV (05:41)
--- NOTE | 2023-12-08 05:50 | PC.NURSE ---
xray obtained to verify placement of ng tube
--- NOTE | 2023-12-08 06:10 | PC.NURSE ---
report called to tamika BEE
--- OUTSIDE RECORDS SUMMARY | 2023-12-08 06:27 | XMS_ITS | CCD ---
Author Organization [facility] Care Team Providers Care Supervisor Cytogenetic Laboratory Name Role Phone COOPERRIDER II, JATIN H Unavailable Unavailabl e COOPERRIDER II, JATIN H Unavailable Unavailguzman e Nikunj Mari Unavailable Unavailable Unavailable PERICO ADAM Admitting Unavailable PERICO ADAM Attending Unavailable NIKUNJ MARI Referring Unavailable KAMALJIT, NIKUNJ Primary Care Unavailable [...] Lincoln ROMAN Admitting Unavailable AMY, DR SHAUNA [employer] Consulting Unavailable KAMALJIT, DR NIKUNJ Fuentes Primary [...] Unavailable Nikunj Mari MD Primary Care Provider [phone] NISH POLLACK Attending Unavailable Nikunj Mari MD Primary Care Provider LEO CHAVARRIA Attending Unavailable NIKUNJ MARI Primary Care UnavailFred Nettles Attending Unavailable Fred Chao Admitting Unavailable Nikunj Mari Primary Care Unavailable Allergies Allergy Classification Reported Allergen(s) Allergy Type Date of Onset Reaction(s) Facility (2 sources) HYDROmorphone; Translations: [HYDROMORPHONE (BULK)] Drug Allergy 06-19-20 17 [facility] Repository (7 sources) tetrahydrocannabi nol; Translations: [DRONABINOL] Drug Allergy 08-27-20 14 Hallucinations , Unknown [facility] Repository (6 sources) dronabinol; Translations: [Marinol] Drug Allergy [facility] [place] [facility] DO Work Phone: (9 sources) HYDROmorphone; Translations: [Dilaudid] Drug Allergy 06-19-20 17 Anaphylaxis, Unknown [facility] [facility] 250 DO Work Phone: (2 sources) dronabinol Drug Allergy 10-04-[address] [facility] Repository (3 sources) HYDROmorphone; Translations: [HYDROMORPHONE] Drug Allergy 12-21-[address] [facility] Repository (1 source) HYDROmorphone Drug Allergy 12-28-19 16 [facility] Repository (2 sources) Angiotensin-conve rting enzyme inhibitor agent; Translations: [JACKI INHIBITORS] Drug Intolerance 11-06-19 24 [facility] Work Phone: (1 source) HYDROmorphone Drug Allergy 11-18-19 [facility] Repository Medications Current Medications Medication Drug [...] complication, with long-term current use of insulin ([facility]) TAKE 1 TABLET TWICE A DAY 180 [...] 10/11/2021 Active omega-3 fatty acids-fish oil (One-Per-Day Melrude-3) 684-1,200 mg capsule (1 source) omega-3 fatty acids-fish oil (One-Per-Day Melrude-3) 684-1,200 mg capsule Take 1 capsule (1,200 [...] 0 Refills: 0 Ordered: 11-Oct-2021 DO Active Melrude 3 CAPS (6 sources) Melrude 3 CAPS Maxwell e 1 capsule twice [...] disease (2 sources) Atherosclerotic heart disease of [place] coronary artery without angina pectoris; Translations: [Old [...] UNSPECIFIED] Onset: 3 Other aftercare (1 source) alf (current) use of aspirin; Translations: [SENIOR LIVING 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 ASPIRIN] Onset: 3 Episodic Other aftercare (1 source) Other nursing home (current) drug therapy; Translations: [OTH SENIOR LIVING CURRENT DRUG THERAPY] Onset: 3 Episodic Other aftercare (1 source) alf (current) use of insulin; Translations: [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 INSULIN] Onset: 3 Episodic Other aftercare (1 source) alf (current) use of oral hypoglycemic drugs; Translations: [TRIAGE TECHNICIAN USE ORAL HYPOGLYCEMIC DX] Onset: 3 Episodic [...] min 2V*on XR shoulder RT min 2V* [facility] [place] [address] XRay Report Signed Patient: Elsa Espinoza MR#: [id number] : 1955 Acct:[id number] Age/Sex: 68 / M ADM Date: 11/18/23 Loc: [facility] Room: Type: [facility] Attending Dr: Fred Chao DO Copies to: [...] Deshpande Jr., AloOElinor11/18/2023 4:35 PM Dictation Location: [place] [address] Transcribed By: [facility] 11/18/23 163 Dictated By: Amaury Deshpande Jr, DO 11/18/23 163 Signed By: 11/18/23 1635 [facility] No Panel Informationon 10-21 [facility] Consultation Noteon 01-11-20 Consultation Note [id number]:127 Normal [facility] CBC AUTO DIFFon 01-05-2023 BASO # 0.0 103/ul Normal 0.0-0.1 [facility] Comment on above: Performed By: #### C VDTBH #### [facility] [address] [place] [address] Dr. Miladys Samuel Basophils/100 WBC (Bld) 0.6 % Normal 0.2-2.0 [facility] Comment on above: Performed By: #### C VDTBH #### [facility] [address] [place] [address] Dr. Miladys Samuel EO # 0.2 103/ul Normal 0.0-0.7 [facility] Comment on above: Performed By: #### C VDTBH #### [facility] [address] [place] [address] Dr. Miladys Samuel Eosinophils/100 WBC (Bld) 4.2 % Normal 0.9-7.0 [facility] Comment on above: Performed By: #### C VDTBH #### [facility] [address] [place] [address] Dr. Miladys Samuel Erythrocyte distribution width (RBC) [Ratio] 13.5 % Normal 11.0-15.0 [facility] Comment on above: Performed By: #### C VDTBH #### [facility] [address] [place] [address] Dr. Miladys Samuel Hematocrit (Bld) [Volume fraction] 40.0 % Critically low 42.0-54.0 [facility] Comment on above: Performed By: #### C VDTBH #### [facility] [address] [place] [address] Dr. Miladys Samuel Hemoglobin (Bld) [Mass/Vol] 12.9 g/dL Critically low 14.0-18.0 [facility] Comment on above: Performed By: #### C VDTBH #### [facility] [address] [place] [address] Dr. Miladys Samuel IG # 0.01 10e3/ul Normal 0.00-0.03 [facility] Comment on above: Performed By: #### C VDTBH #### [facility] [address] [place] [address] Dr. Miladys Samuel IG % 0.3 % Normal 0.0-0.5 [facility] Comment on above: Performed By: #### C VDTBH #### [facility] [address] [place] [address] Dr. Miladys Samuel LYMPH # 0.7 103/ul Critically low 1.2-3.8 [facility] Comment on above: Performed By: #### C VDTBH #### [facility] [address] [place] [address] Dr. Miladys Samuel Lymphocytes/100 WBC (Bld) 19.5 % Critically low 20.5-60.0 [facility] Comment on above: Performed By: #### C VDTBH #### [facility] [address] [place] [address] Dr. Miladys Samuel MANUAL DIFF REQ NO Normal [facility] Comment on above: Performed By: #### C VDTBH #### [facility] [address] [place] [address] Dr. Miladys Samuel MCH (RBC) [Entitic mass] 27.6 pg Normal 25.9-34.0 [facility] Comment on above: Performed By: #### C VDTBH #### [facility] [address] [place] [address] Dr. Miladys Samuel MCHC (RBC) [Mass/Vol] 32.3 g/dL Normal 29.9-35.2 [facility] Comment on above: Performed By: #### C VDTBH #### [facility] [address] [place] [address] Dr. Miladys Samuel MCV (RBC) [Entitic vol] 85.7 fL Normal 80.0-94.0 [facility] Comment on above: Performed By: #### C VDTBH #### [facility] [address] [place] [address] Dr. Miladys Samuel MONO # 0.4 103/ul Normal 0.3-0.8 [facility] Comment on above: Performed By: #### C VDTBH #### [facility] [address] [place] [address] Dr. Miladys Samuel Monocytes/100 WBC (Bld) 10.3 % Normal 1.7-12.0 [facility] Comment on above: Performed By: #### C VDTBH #### [facility] [address] [place] [address] Dr. Miladys Samuel NEUT # 2.3 103/ul Normal 1.4-6.5 [facility] Comment on above: Performed By: #### C VDTBH #### [facility] [address] [place] [address] Dr. Miladys Samuel Neutrophils/100 WBC (Bld) 65.1 % Normal 43.0-75.0 [facility] Comment on above: Performed By: #### C VDTBH #### [facility] [address] [address] [address] Miladys Samuel Platelet mean volume (Bld) [Entitic vol] 10.1 fL Normal 9.5-13.5 [facility] Comment on above: Performed By: #### C VDTBH #### [facility] [address] [address] [address] Miladys Samuel PLT 103 103/ul Critically low 150-450 [facility] Comment on above: Performed By: #### C VDTBH #### [facility] [address] [address] [address] Miladys Samuel RBC 4.67 106/ul Critically low 4.70-6.10 [facility] Comment on above: Performed By: #### C VDTBH #### [facility] [address] [place] [address] Dr. Miladys Samuel WBC 3.6 103/ul Critically low 4.0-11.0 [facility] Comment on above: Performed By: #### C VDTBH #### [facility] [address] [place] [address] Dr. Miladys Samuel GLYCOHEMOGLOBIN A1Con 2022 ADA RECOMMENDATION SEE BELOW Normal [facility] Comment on above: Result Comment: ADA RECOMMENDED LIMIT 4.0 - 6.0 ADA THERAPEUTIC TARGET < 7.0 ACTION SUGGESTED > 7.0 Performed By: #### C VDTBH #### [facility] [address] [address] [address] Miladys Samuel Glucose [Mass/Vol] 194 mg/dL Normal [facility] Comment on above: Performed By: #### C VDTBH #### [facility] [address] [address] [address] Miladys Samuel HbA1c (Bld) [Mass fraction] 8.4 % Critically high 4.5-6.2 [facility] Comment on above: Performed By: #### C VDTBH #### [facility] [address] [address] [address] Miladys Samuel MAGNESIUMon 01-05-2023 Magnesium [Mass/Vol] 1.8 mg/dL Normal 1.8-2.4 [facility] Comment on above: Performed By: #### A MY #### [facility] [address] [place] [address] Dr. Miladys Samuel POINT OF CARE GLUCOSEon 12-09 Glucose [Mass/Vol] 253 mg/dL Critically high 74-106 T [facility] [place] Comment on above: Performed By: #### A MY #### [facility] [address] [place] [address] Dr. Miladys Samuel PROF CHEM 8 (BAS METB)on Anion gap [Moles/Vol] 9.1 mmol/L Normal [facility] Comment on above: Performed By: #### A MY #### [facility] [address] [place] [address] Dr. Miladys Samuel Calcium [Mass/Vol] 8.2 mg/dL Critically low 8.5-10.1 Th [facility] Comment on above: Performed By: #### A MY #### [facility] [address] [place] [address] Dr. Miladys Samuel Chloride [Moles/Vol] 106 mmol/L Normal 98-107 [facility] Comment on above: Performed By: #### A MY #### [facility] [address] [place] [address] Dr. Miladys Samuel CO2 [Moles/Vol] 30.1 mmol/L Normal 21.0-32.0 [facility] Comment on above: Performed By: #### A MY #### [facility] [address] [place] [address] Dr. Miladys Samuel Creatinine [Mass/Vol] 1.00 mg/dL Normal 0.70-1.30 [facility] Comment on above: Performed By: #### A MY #### [facility] [address] [place] [address] Dr. Miladys Samuel EGFR-AF MALAYSIAN >60 Normal >=60 [facility] Comment on above: Performed By: #### A MY #### [facility] [address] [place] [address] Dr. Miladys Samuel EGFR-NON AF MALAYSIAN >60 Normal >=60 [facility] Comment on above: Performed By: #### A MY #### [facility] [address] [address] [address] Miladys Samuel Glucose [Mass/Vol] 117 mg/dL Critically high 74-106 T [facility] [place] Comment on above: Performed By: #### A MY #### [facility] [address] [address] [address] Miladys Samuel Potassium [Moles/Vol] 4.2 mmol/L Normal 3.5-5.1 [facility] Comment on above: Performed By: #### A MY #### [facility] [address] [address] [address] Miladys Samuel Sodium [Moles/Vol] 141 mmol/L Normal 136-145 [facility] Comment on above: Performed By: #### A MY #### [facility] [address] [address] [address] Miladys Samuel Urea nitrogen [Mass/Vol] 9.0 mg/dL Normal 7.0-18.0 [facility] Comment on above: Performed By: #### A MY #### [facility] [address] [address] [address] Miladys Samuel Urea nitrogen/Creatinine [Mass ratio] 9.0 mg/mg Normal [facility] Comment on above: Performed By: #### A MY #### [facility] [address] [address] [address] Miladys Samuel XR ABD FLAT UP_PA [...] MONTY CHANEL Date: 2023-01-05 07:10 Normal [facility] CBC AUTO DIFFon 01-04-2023 BASO # 0.0 103/ul Normal 0.0-0.1 [facility] Comment on above: Performed By: #### L ACT #### [facility] [address] [place] [address] Dr. Miladys Samuel Basophils/100 WBC (Bld) 0.3 % Normal 0.2-2.0 [facility] Comment on above: Performed By: #### L ACT #### [facility] [address] [address] [address] Miladys Samuel EO # 0.1 103/ul Normal 0.0-0.7 [facility] Comment on above: Performed By: #### L ACT #### [facility] [address] [place] [address] Dr. Miladys Samuel Eosinophils/100 WBC (Bld) 0.9 % Normal 0.9-7.0 [facility] Comment on above: Performed By: #### L ACT #### [facility] [address] [address] [address] Miladys Samuel Erythrocyte distribution width (RBC) [Ratio] 13.7 % Normal 11.0-15.0 [facility] Comment on above: Performed By: #### L ACT #### [facility] [address] [address] [address] Miladys Samuel Hematocrit (Bld) [Volume fraction] 41.2 % Critically low 42.0-54.0 [facility] Comment on above: Performed By: #### L ACT #### [facility] [address] [place] [address] Dr. Miladys Samuel Hemoglobin (Bld) [Mass/Vol] 13.7 g/dL Critically low 14.0-18.0 [facility] Comment on above: Performed By: #### L ACT #### [facility] [address] [place] [address] Dr. Miladys Samuel IG # 0.02 10e3/ul Normal 0.00-0.03 [facility] Comment on above: Performed By: #### L ACT #### [facility] [address] [place] [address] Dr. Miladys Samuel IG % 0.3 % Normal 0.0-0.5 [facility] Comment on above: Performed By: #### L ACT #### [facility] [address] [place] [address] Dr. Miladys Samuel LYMPH # 0.6 103/ul Critically low 1.2-3.8 [facility] Comment on above: Performed By: #### L ACT #### [facility] [address] [place] [address] Dr. Miladys Samuel Lymphocytes/100 WBC (Bld) 9.9 % Critically low 20.5-60.0 [facility] Comment on above: Performed By: #### L ACT #### [facility] [address] [place] [address] Dr. Miladys Samuel MANUAL DIFF REQ NO Normal [facility] Comment on above: Performed By: #### L ACT #### [facility] [address] [place], [place] [id number] Dr. Miladys Samuel MCH (RBC) [Entitic mass] 28.0 pg Normal 25.9-34.0 [facility] Comment on above: Performed By: #### L ACT #### [facility] [address] [place] [address] Dr. Miladys Samuel MCHC (RBC) [Mass/Vol] 33.3 g/dL Normal 29.9-35.2 [facility] Comment on above: Performed By: #### L ACT #### [facility] [address] [place] [address] Dr. Miladys Samuel MCV (RBC) [Entitic vol] 84.1 fL Normal 80.0-94.0 [facility] Comment on above: Performed By: #### L ACT #### [facility] [address] [place] [address] Dr. Miladys Samuel MONO # 0.6 103/ul Normal 0.3-0.8 [facility] Comment on above: Performed By: #### L ACT #### [facility] [address] [place] [address] Dr. Miladys Samuel Monocytes/100 WBC (Bld) 9.3 % Normal 1.7-12.0 [facility] Comment on above: Performed By: #### L ACT #### [facility] [address] [place] [address] Dr. Miladys Samuel NEUT # 5.1 103/ul Normal 1.4-6.5 [facility] Comment on above: Performed By: #### L ACT #### [facility] [address] [place] [address] Dr. Miladys Samuel Neutrophils/100 WBC (Bld) 79.3 % Critically high 43.0-75.0 [facility] Comment on above: Performed By: #### L ACT #### [facility] [address] [place] [address] Dr. Miladys Samuel Platelet mean volume (Bld) [Entitic vol] 9.9 fL Normal 9.5-13.5 [facility] Comment on above: Performed By: #### L ACT #### [facility] [address] [address] [address] Miladys Samuel PLT 126 103/ul Critically low 150-450 [facility] Comment on above: Performed By: #### L ACT #### [facility] [address] [address] [address] Miladys Samuel RBC 4.90 106/ul Normal 4.70-6.10 [facility] Comment on above: Performed By: #### L ACT #### [facility] [address] [address] [address] Miladys Samuel WBC 6.5 103/ul Normal 4.0-11.0 [facility] Comment on above: Performed By: #### L ACT #### [facility] [address] [address] [address] Miladys Samuel MAGNESIUMon 01-04-2023 Magnesium [Mass/Vol] 2.6 mg/dL Critically high 1.8-2.4 [facility] Comment on above: Performed By: #### M OTTONIEL Doyle, PHOS ####[facility] [address] [place] [address]DrElinor Samuel PHOSPHORUSon 01-04-2023 Phosphate [Mass/Vol] 5.5 mg/dL Critically high 2.6-4.7 [facility] Comment on above: Performed By: #### M Yanira BMP, PHOS ####[facility] [address] [place] [address]DrElinor Samuel POINT OF CARE GLUCOSEon 12-09 Glucose [Mass/Vol] 167 mg/dL Critically high 74-106 [facility] Comment on above: Performed By: #### P OCGLUC ####[facility] [address] [place] [address]Dr. Miladys Samuel Glucose [Mass/Vol] 118 mg/dL Critically high 74-106 [facility] Comment on above: Performed By: #### P OCGLUC ####[facility] [address] [place] [address]DrElinor Samuel PROF CHEM 8 (BAS METB)on Anion gap [Moles/Vol] 15.7 mmol/L Normal [facility] Comment on above: Performed By: #### OTTONIEL Blanco, PHOS ####[facility] [address] [place] [address]Dr. Miladys Samuel Calcium [Mass/Vol] 8.8 mg/dL Normal 8.5-10.1 [facility] Comment on above: Performed By: #### OTTONIEL Blanco, PHOS ####[facility] [address] [place] [address]Dr. Miladys Samuel Chloride [Moles/Vol] 99 mmol/L Normal 98-107 [facility] Comment on above: Performed By: #### OTTONIEL Blanco, PHOS ####[facility] [address] [place], [place] [address]Dr. Miladys Samuel CO2 [Moles/Vol] 28.8 mmol/L Normal 21.0-32.0 [facility] Comment on above: Performed By: #### OTTONIEL Blanco, PHOS ####[facility] [address] [place], [place] [address]Dr. Miladys Samuel Creatinine [Mass/Vol] 0.98 mg/dL Normal 0.70-1.30 [facility] Comment on above: Performed By: #### OTTONIEL Blanco, PHOS ####[facility] [address] [place], [place] [address]Dr. Miladys Samuel EGFR-AF MALAYSIAN >60 Normal >=60 [facility] Comment on above: Performed By: #### OTTONIEL Blanco, PHOS ####[facility] [address] [place] [address]Dr. Miladys Samuel EGFR-NON AF MALAYSIAN >60 Normal >=60 [facility] Comment on above: Performed By: #### OTTONIEL Blanco, PHOS ####[facility] [address] [place] [address]Dr. Miladys Samuel Glucose [Mass/Vol] 153 mg/dL Critically high 74-106 T [facility] [place] Comment on above: Performed By: #### OTTONIEL Blanco, PHOS ####[facility] [address] [place] [id number]. Miladys Samuel Potassium [Moles/Vol] 4.5 mmol/L Normal 3.5-5.1 [facility] Comment on above: Performed By: #### M OTTONIEL Doyle, PHOS ####[facility] [address] [place] [id number]. Miladys Samuel Sodium [Moles/Vol] 139 mmol/L Normal 136-145 [facility] Comment on above: Performed By: #### OTTONIEL Blanco, PHOS ####[facility] [address] [place], [place] [address]Zb. Miladys Samuel Urea nitrogen [Mass/Vol] 15.0 mg/dL Normal 7.0-18.0 [facility] Comment on above: Performed By: #### OTTONIEL Blanco, PHOS ####[facility] [address] [address]Dr. Miladys Samuel Urea nitrogen/Creatinine [Mass ratio] 15.3 mg/mg Normal [facility] Comment on above: Performed By: #### OTTONIEL Blanco, PHOS ####[facility] [address] [place] [id number]. Miladys Samuel XR ABD FLAT UP_PA Bird [...] SHAUNA REYES Date: 2023-01-04 08:37 Normal [facility] XR KUB 1 VIEWon 01-04-2023 XR KUB [...] CRISTAL MI Date: 2023-01-04 00:40 Normal [facility] XR SMALL BOWELon 01-04-2023 XR SMALL BOWEL [...] JESSE VO Date: 2023-01-04 17:36 Normal [facility] CBC AUTO DIFFon 01-03-2023 BASO # 0.0 103/ul Normal 0.0-0.1 [facility] Comment on above: Performed By: #### C BC ####[facility] [address] [place] [id number]. Miladys Samuel Basophils/100 WBC (Bld) 0.1 % Critically low 0.2-2.0 [facility] Comment on above: Performed By: #### C BC ####[facility] [address] [place] [id number]. Miladys Samuel EO # 0.0 103/ul Normal 0.0-0.7 [facility] Comment on above: Performed By: #### C BC ####[facility] [address] [place] [id number]. Miladys Samuel Eosinophils/100 WBC (Bld) 0.5 % Critically low 0.9-7.0 [facility] Comment on above: Performed By: #### C BC ####[facility] [address] [place] [address]Dr. Miladys Samuel Erythrocyte distribution width (RBC) [Ratio] 13.3 % Normal 11.0-15.0 [facility] Comment on above: Performed By: #### C BC ####[facility] [address] [place], [place] [address]Dr. Miladys Samuel Hematocrit (Bld) [Volume fraction] 41.3 % Critically low 42.0-54.0 [facility] Comment on above: Performed By: #### C BC ####[facility] [address] [place], [place] [address]Dr. Miladys Samuel Hemoglobin (Bld) [Mass/Vol] 13.8 g/dL Critically low 14.0-18.0 [facility] Comment on above: Performed By: #### C BC ####[facility] [address] [place], [place] [address]Dr. Miladys Samuel IG # 0.03 10e3/ul Normal 0.00-0.03 [facility] Comment on above: Performed By: #### C BC ####[facility] [address] [place], [place] [address]Dr. Miladys Samuel IG % 0.4 % Normal 0.0-0.5 [facility] Comment on above: Performed By: #### C BC ####[facility] [address] [place], [place] [address]Dr. Miladys Samuel LYMPH # 0.7 103/ul Critically low 1.2-3.8 [facility] Comment on above: Performed By: #### C BC ####[facility] [address] [place], [place] [address]Dr. Miladys Samuel Lymphocytes/100 WBC (Bld) 9.2 % Critically low 20.5-60.0 [facility] Comment on above: Performed By: #### C BC ####[facility] [address] [place], [place] [address]Dr. Miladys Samuel MANUAL DIFF REQ NO Normal [facility] Comment on above: Performed By: #### C BC ####[facility] [address] [place] [id number]. Miladys Jimmie MCH (RBC) [Entitic mass] 27.9 pg Normal 25.9-34.0 [facility] Comment on above: Performed By: #### C BC ####[facility] [address] [address]Dr. Miladys Jimmie MCHC (RBC) [Mass/Vol] 33.4 g/dL Normal 29.9-35.2 [facility] Comment on above: Performed By: #### C BC ####[facility] [address] [address]Dr. Miladys Jimmie MCV (RBC) [Entitic vol] 83.6 fL Normal 80.0-94.0 [facility] Comment on above: Performed By: #### C BC ####[facility] [address] [place], [place] [address]Dr. Miladys Samuel MONO # 0.4 103/ul Normal 0.3-0.8 [facility] Comment on above: Performed By: #### C BC ####[facility] Clhygtkvq[address] [place], [place] [address]Dr. Cecilleearnest Samuel Monocytes/100 WBC (Bld) 5.7 % Normal 1.7-12.0 [facility] Comment on above: Performed By: #### C BC ####[facility] [address]av[address] [place], [place] [address]Dr. Cecilleearnest Jimmie NEUT # 6.5 103/ul Normal 1.4-6.5 [facility] Comment on above: Performed By: #### C BC ####[facility] [address] [place], [place] [address]Dr. Miladys Samuel Neutrophils/100 WBC (Bld) 84.1 % Critically high 43.0-75.0 [facility] Comment on above: Performed By: #### C BC ####[facility] [address] [place], [place] [address]Dr. Miladys Samuel Platelet mean volume (Bld) [Entitic vol] 9.9 fL Normal 9.5-13.5 [facility] Comment on above: Performed By: #### C BC ####[facility] [address] [place], [place] [address]Gv. Miladys Samuel PLT 130 103/ul Critically low 150-450 [facility] Comment on above: Performed By: #### C BC ####[facility] [address] [place], [place] [address]Pu. Miladys Samuel RBC 4.94 106/ul Normal 4.70-6.10 [facility] Comment on above: Performed By: #### C BC ####[facility] [address] [place], [place] [address]Rq. Miladys Samuel WBC 7.7 103/ul Normal 4.0-11.0 [facility] Comment on above: Performed By: #### C BC ####[facility] [address] [place], [place] [address] ABD/PELV W CONon 01-04-20 [...] by: CONSTANTINO HILL Date: 2023-01-03 21:05 Normal [facility] LIPASEon 01-03-2023 Lipase [Catalytic activity/Vol] 80.0 U/L Normal 73.0-393.0 [facility] Comment on above: Performed By: #### C VDTBH #### [facility] [address] [address] [address] Miladys Samuel LIVER PROFILEon 01-03-2023 Albumin [Mass/Vol] 4.1 g/dL Normal 3.4-5.0 [facility] Comment on above: Performed By: #### C VDTBH #### [facility] [address] [place], [place] [address] Dr. Miladys Samuel Albumin/Globulin [Mass ratio] 1.3 {ratio} Normal [facility] Comment on above: Performed By: #### C VDTBH #### [facility] [address] [place], [place] [address] Dr. Miladys Samuel ALP [Catalytic activity/Vol] 61 U/L Normal 46-116 [facility] Comment on above: Performed By: #### C VDTBH #### [facility] [address] [address] [address] Miladys Samuel ALT [Catalytic activity/Vol] 35 U/L Normal 16-63 [facility] Comment on above: Performed By: #### C VDTBH #### [facility] [address] [address] [address] Miladys Samuel AST [Catalytic activity/Vol] 28 U/L Normal 15-37 [facility] Comment on above: Performed By: #### C VDTBH #### [facility] [address] [address] [address] Miladys Samuel BILI, CONJUGATED 0.1 mg/dL Normal 0.0-0.2 [facility] Comment on above: Performed By: #### C VDTBH #### [facility] [address] [address] [address] Miladys Samuel Bilirubin [Mass/Vol] 0.5 mg/dL Normal 0.2-1.0 [facility] Comment on above: Performed By: #### C VDTBH #### [facility] [address] [address] [address] Miladys Samuel Globulin (S) [Mass/Vol] 3.2 g/dL Normal [facility] Comment on above: Performed By: #### C VDTBH #### [facility] [address] [address] [address] Miladys Samuel Protein [Mass/Vol] 7.3 g/dL Normal 6.4-8.2 [facility] Comment on above: Performed By: #### C VDTBH #### [facility] [address] [address] [address] Miladys Samuel MAGNESIUMon 01-03-2023 Magnesium [Mass/Vol] 1.4 mg/dL Critically low 1.8-2.4 [facility] Comment on above: Performed By: #### M G ####[facility] [address] [address]Dr. Miladys Samuel PROF CHEM 8 (BAS METB)on Anion gap [Moles/Vol] 12.9 mmol/L Normal [facility] Comment on above: Performed By: #### C VDTBH #### [facility] [address] [place] [address] Dr. Miladys Samuel Calcium [Mass/Vol] 9.7 mg/dL Normal 8.5-10.1 [facility] Comment on above: Performed By: #### C VDTBH #### [facility] [address] [place] [address] Dr. Miladys Samuel Chloride [Moles/Vol] 99 mmol/L Normal 98-107 [facility] Comment on above: Performed By: #### C VDTBH #### [facility] [address] [place] [address] Dr. Miladys Samuel CO2 [Moles/Vol] 28.3 mmol/L Normal 21.0-32.0 [facility] Comment on above: Performed By: #### C VDTBH #### [facility] [address] [place] [address] Dr. Miladys Samuel Creatinine [Mass/Vol] 1.10 mg/dL Normal 0.70-1.30 [facility] Comment on above: Performed By: #### C VDTBH #### [facility] [address] [place] [address] Dr. Miladys Samuel EGFR-AF MALAYSIAN >60 Normal >=60 [facility] Comment on above: Performed By: #### C VDTBH #### [facility] [address] [place] [address] Dr. Miladys Samuel EGFR-NON AF MALAYSIAN >60 Normal >=60 [facility] Comment on above: Performed By: #### C VDTBH #### [facility] [address] [place] [address] Dr. Miladys Samuel Glucose [Mass/Vol] 155 mg/dL Critically high 74-106 T [facility] [place] Comment on above: Performed By: #### C VDTBH #### [facility] [address] [place] [address] Dr. Miladys Samuel Potassium [Moles/Vol] 4.2 mmol/L Normal 3.5-5.1 [facility] Comment on above: Performed By: #### C VDTBH #### [facility] [address] [place] [address] Dr. Miladys Samuel Sodium [Moles/Vol] 136 mmol/L Normal 136-145 [facility] Comment on above: Performed By: #### C VDTBH #### [facility] [address] [place] [address] Dr. Miladys Smauel Urea nitrogen [Mass/Vol] 13.0 mg/dL Normal 7.0-18.0 [facility] Comment on above: Performed By: #### C VDTBH #### [facility] [address] [place] [address] Dr. Miladys Samuel Urea nitrogen/Creatinine [Mass ratio] 11.8 mg/mg Normal [facility] Comment on above: Performed By: #### C VDTBH #### [facility] [address] [place] [address] Dr. Miladys Samuel PROTIMEon 01-03-2023 INR Coag (PPP) [Relative time] 1.04 {INR} Normal [facility] Comment on above: Performed By: #### P TT, PT #### [facility] [address] [place] [address] Dr. Miladys Samuel INR GUIDELINES SEE BELOW Normal [facility] Comment on above: Result Comment: BRITTA RED INR: 2.0 - 3.0 CONDITIONS NOT LISTED BELOW 2.5 - 3.5 FOR PROSTHETIC HEART VALVE REPLACEMENT 2.5 - 3.5 RECURRENT THROMBOSIS Performed By: #### P TT, PT #### [facility] [address] [place] [address] Dr. Miladys Samuel PT Coag (PPP) [Time] 11.0 s Normal 9.0-11.6 [facility] Comment on above: Performed By: #### P TT, PT #### [facility] [address] [place] [address] Dr. Miladys Samuel PTTon 01-03-2023 aPTT Coag (Bld) [Time] 28.3 s Normal 22.3-36.2 [facility] Comment on above: Performed By: #### P TT, PT #### [facility] [address] [place] [address] Dr. Miladys Samuel TROPONIN, HIGH SENSITIVITYon 01-03-2023 HSTROP 8.0 pg/mL Normal 4.0-76.1 [facility] Comment on above: Result Comment: CUT- OFF POINTS HAVE BEEN ESTABLISHED BASED ON THE FOURTH UNIVERSAL DEFINITIONS OF MYOCARDIAL INFARCTION. THE UPPER REFERENCE LIMIT (URL) OF TROPONIN, DEFINED THE 99TH PERCENTILE OF cTnI DISTRIBUTION IN A REFERENCE POPULATION, HAS BEEN CONFIRMED THE DECISION THRESHOLD FOR [place] DIAGNOSIS. Performed By: #### C VDTBH #### [facility] [address] [place] [address] Dr. Miladys Samuel AMYLASEon 11-04-2022 Amylase [Catalytic activity/Vol] 28 U/L Normal 25-115 [facility] Comment on above: Performed By: #### L IPA, NOHELIA #### [facility] [address] [place] [address] Dr. Miladys Samuel CBC AUTO DIFFon 11-04-2022 BASO # 0.0 103/ul Normal 0.0-0.1 [facility] Comment on above: Performed By: #### C VDTBH #### [facility] [address] [place] [address] Dr. Miladys Samuel Basophils/100 WBC (Bld) 0.2 % Normal 0.2-2.0 [facility] Comment on above: Performed By: #### C VDTBH #### [facility] [address] [place] [address] Dr. Miladys Samuel EO # 0.1 103/ul Normal 0.0-0.7 [facility] Comment on above: Performed By: #### C VDTBH #### [facility] [address] [place] [address] Dr. Miladys Samuel Eosinophils/100 WBC (Bld) 2.0 % Normal 0.9-7.0 [facility] Comment on above: Performed By: #### C VDTBH #### [facility] [address] [place] [address] Dr. Miladys Samuel Erythrocyte distribution width (RBC) [Ratio] 14.4 % Normal 11.0-15.0 [facility] Comment on above: Performed By: #### C VDTBH #### [facility] [address] [place] [address] Dr. Miladys Samuel Hematocrit (Bld) [Volume fraction] 42.0 % Normal 42.0-54.0 [facility] Comment on above: Performed By: #### C VDTBH #### [facility] [address] [place] [address] Dr. Miladys Samuel Hemoglobin (Bld) [Mass/Vol] 14.0 g/dL Normal 14.0-18.0 [facility] Comment on above: Performed By: #### C VDTBH #### [facility] [address] [place] [address] Dr. Miladys Samuel IG # 0.03 10e3/ul Normal 0.00-0.03 [facility] Comment on above: Performed By: #### C VDTBH #### [facility] [address] [place] [address] Dr. Miladys Samuel IG % 0.5 % Normal 0.0-0.5 [facility] Comment on above: Performed By: #### C VDTBH #### [facility] [address] [place] [address] Dr. Miladys Samuel LYMPH # 0.6 103/ul Critically low 1.2-3.8 [facility] Comment on above: Performed By: #### C VDTBH #### [facility] [address] [place] [address] Dr. Miladys Samuel Lymphocytes/100 WBC (Bld) 10.2 % Critically low 20.5-60.0 [facility] Comment on above: Performed By: #### C VDTBH #### [facility] [address] [place] [address] Dr. Miladys Samuel MANUAL DIFF REQ NO Normal [facility] Comment on above: Performed By: #### C VDTBH #### [facility] [address] [place] [address] Dr. Miladys Samuel MCH (RBC) [Entitic mass] 27.8 pg Normal 25.9-34.0 [facility] Comment on above: Performed By: #### C VDTBH #### [facility] [address] [place] [address] Dr. Miladys Samuel MCHC (RBC) [Mass/Vol] 33.3 g/dL Normal 29.9-35.2 [facility] Comment on above: Performed By: #### C VDTBH #### [facility] [address] [place] [address] Dr. Miladys Samuel MCV (RBC) [Entitic vol] 83.3 fL Normal 80.0-94.0 [facility] Comment on above: Performed By: #### C VDTBH #### [facility] [address] [place] [address] Dr. Miladys Samuel MONO # 0.5 103/ul Normal 0.3-0.8 [facility] Comment on above: Performed By: #### C VDTBH #### [facility] [address] [place] [address] Dr. Miladys Samuel Monocytes/100 WBC (Bld) 8.0 % Normal 1.7-12.0 [facility] Comment on above: Performed By: #### C VDTBH #### [facility] [address] [place] [address] Dr. Miladys Samuel NEUT # 4.8 103/ul Normal 1.4-6.5 [facility] Comment on above: Performed By: #### C VDTBH #### [facility] [address] [place] [address] Dr. Miladys Samuel Neutrophils/100 WBC (Bld) 79.1 % Critically high 43.0-75.0 [facility] Comment on above: Performed By: #### C VDTBH #### [facility] [address] [place] [address] Dr. Miladys Samuel Platelet mean volume (Bld) [Entitic vol] 9.8 fL Normal 9.5-13.5 [facility] Comment on above: Performed By: #### C VDTBH #### [facility] [address] [address] [address] Miladys Samuel PLT 111 103/ul Critically low 150-450 [facility] Comment on above: Performed By: #### C VDTBH #### [facility] [address] [address] [address] Miladys Samuel RBC 5.04 106/ul Normal 4.70-6.10 [facility] Comment on above: Performed By: #### C VDTBH #### [facility] [address] [address] [address] Miladys Samuel WBC 6.0 103/ul Normal 4.0-11.0 [facility] Comment on above: Performed By: #### C VDTBH #### [facility] [address] [place] [address] Dr. Miladys Samuel LIPASEon 11-04-2022 Lipase [Catalytic activity/Vol] 73.0 U/L Normal 73.0-393.0 [facility] Comment on above: Performed By: #### L IPA, NOHELIA ####[facility] [address] [place], [place] [address]Dr. Miladys Samuel POINT OF CARE GLUCOSEon 10-11 Glucose [Mass/Vol] 222 mg/dL Critically high 74-106 T [facility] [place] Comment on above: Performed By: #### A MY #### [facility] [address] [address] [address] Miladys Samuel PROF 14(COMP METB)on 023 Albumin [Mass/Vol] 3.7 g/dL Normal 3.4-5.0 [facility] Comment on above: Performed By: #### C MP ####[facility] [address] [address]Dr. Miladys Samuel Albumin/Globulin [Mass ratio] 1.4 {ratio} Normal [facility] Comment on above: Performed By: #### C MP ####[facility] [address] [address]Dr. Miladys Samuel ALP [Catalytic activity/Vol] 77 U/L Normal 46-116 [facility] Comment on above: Performed By: #### C MP ####[facility] [address] [address]Dr. Miladys Samuel ALT [Catalytic activity/Vol] 116 U/L Critically high 16-63 [facility] Comment on above: Performed By: #### C MP ####[facility] [address] [place] [address]Dr. Miladys Samuel Anion gap [Moles/Vol] 14.1 mmol/L Normal [facility] Comment on above: Performed By: #### C MP ####[facility] [address] [address]Dr. Miladys Samuel AST [Catalytic activity/Vol] 54 U/L Critically high 15-37 [facility] Comment on above: Performed By: #### C MP ####[facility] [address] [place], [place] [address]Dr. Miladys Samuel Bilirubin [Mass/Vol] 0.6 mg/dL Normal 0.2-1.0 [facility] Comment on above: Performed By: #### C MP ####[facility] [address] [place], [place] [address]Dr. Miladys Samuel Calcium [Mass/Vol] 8.8 mg/dL Normal 8.5-10.1 [facility] Comment on above: Performed By: #### C MP ####[facility] [address] [place], [place] [address]Dr. Miladys Samuel Chloride [Moles/Vol] 101 mmol/L Normal 98-107 [facility] Comment on above: Performed By: #### C MP ####[facility] [address] [address]Dr. Miladys Samuel CO2 [Moles/Vol] 27.8 mmol/L Normal 21.0-32.0 [facility] Comment on above: Performed By: #### C MP ####[facility] [address] [place], [place] [address]Dr. Miladys Samuel Creatinine [Mass/Vol] 0.79 mg/dL Normal 0.70-1.30 [facility] Comment on above: Performed By: #### C MP ####[facility] [address] [address]Dr. Miladys Jimmie EGFR-AF MALAYSIAN >60 Normal >=60 [facility] Comment on above: Performed By: #### C MP ####[facility] [address] [address]Dr. Miladys Jimmie EGFR-NON AF MALAYSIAN >60 Normal >=60 [facility] Comment on above: Performed By: #### C MP ####[facility] [address] [id number]. Miladys Jimmie Globulin (S) [Mass/Vol] 2.7 g/dL Normal [facility] Comment on above: Performed By: #### C MP ####[facility] [address] [address]Dr. Cecilleearnest Jimmie Glucose [Mass/Vol] 153 mg/dL Critically high 74-106 [facility] Comment on above: Performed By: #### C MP ####[facility] [address] [address]Dr. Miladys Jimmie Potassium [Moles/Vol] 3.9 mmol/L Normal 3.5-5.1 [facility] Comment on above: Performed By: #### C MP ####[facility] [address] [address]Dr. Cecilleearnest Jimmie Protein [Mass/Vol] 6.4 g/dL Normal 6.4-8.2 [facility] Comment on above: Performed By: #### C MP ####[facility] [address] [id number]. Cecilleearnest Samuel Sodium [Moles/Vol] 139 mmol/L Normal 136-145 [facility] Comment on above: Performed By: #### C MP ####[facility] [address] [address]Dr. Miladys Samuel Urea nitrogen [Mass/Vol] 9.0 mg/dL Normal 7.0-18.0 [facility] Comment on above: Performed By: #### C MP ####[facility] [address] [place] [id number]. Miladys Samuel Urea nitrogen/Creatinine [Mass ratio] 11.4 mg/mg Normal [facility] Comment on above: Performed By: #### C MP ####[facility] [address] [place] [id number]. Miladys Samuel XR KUB 1 VIEWon 11-04-2022 [...] MARTA COLEMAN Date: 2022-11-04 02:22 Normal [facility] AMYLASEon 11-03-2022 Amylase [Catalytic activity/Vol] 31 U/L Normal 25-115 [facility] Comment on above: Performed By: #### A MY #### [facility] [address] [place] [address] Dr. Miladys Samuel CBC AUTO DIFFon 11-03-2022 BASO # 0.0 103/ul Normal 0.0-0.1 [facility] Comment on above: Performed By: #### A MY #### [facility] [address] [place] [address] Dr. Miladys Samuel Basophils/100 WBC (Bld) 0.2 % Normal 0.2-2.0 [facility] Comment on above: Performed By: #### A MY #### [facility] [address] [place] [address] Dr. Miladys Samuel EO # 0.1 103/ul Normal 0.0-0.7 [facility] Comment on above: Performed By: #### A MY #### [facility] [address] [place] [address] Dr. Miladys Samuel Eosinophils/100 WBC (Bld) 1.5 % Normal 0.9-7.0 [facility] Comment on above: Performed By: #### A MY #### [facility] [address] [place] [address] Dr. Miladys Samuel Erythrocyte distribution width (RBC) [Ratio] 14.0 % Normal 11.0-15.0 [facility] Comment on above: Performed By: #### A MY #### [facility] [address] [place] [address] Dr. Miladys Samuel Hematocrit (Bld) [Volume fraction] 40.0 % Critically low 42.0-54.0 [facility] Comment on above: Performed By: #### A MY #### [facility] [address] [place] [address] Dr. Miladys Samuel Hemoglobin (Bld) [Mass/Vol] 13.4 g/dL Critically low 14.0-18.0 [facility] Comment on above: Performed By: #### A MY #### [facility] [address] [place] [address] Dr. Miladys Samuel IG # 0.02 10e3/ul Normal 0.00-0.03 [facility] Comment on above: Performed By: #### A MY #### [facility] [address] [place] [address] Dr. Miladys Samuel IG % 0.4 % Normal 0.0-0.5 [facility] Comment on above: Performed By: #### A MY #### [facility] [address] [place] [address] Dr. Miladys Samuel LYMPH # 0.8 103/ul Critically low 1.2-3.8 [facility] Comment on above: Performed By: #### A MY #### [facility] [address] [place] [address] Dr. Miladys Samuel Lymphocytes/100 WBC (Bld) 14.2 % Critically low 20.5-60.0 [facility] Comment on above: Performed By: #### A MY #### [facility] [address] [place] [address] Dr. Miladys Samuel MANUAL DIFF REQ NO Normal [facility] Comment on above: Performed By: #### A MY #### [facility] [address] [place] [address] Dr. Miladys Samuel MCH (RBC) [Entitic mass] 27.7 pg Normal 25.9-34.0 [facility] Comment on above: Performed By: #### A MY #### [facility] [address] [place] [address] Dr. Miladys Samuel MCHC (RBC) [Mass/Vol] 33.5 g/dL Normal 29.9-35.2 [facility] Comment on above: Performed By: #### A MY #### [facility] [address] [place] [address] Dr. Miladys Samuel MCV (RBC) [Entitic vol] 82.6 fL Normal 80.0-94.0 [facility] Comment on above: Performed By: #### A MY #### [facility] [address] [place] [address] Dr. Miladys Samuel MONO # 0.6 103/ul Normal 0.3-0.8 [facility] Comment on above: Performed By: #### A MY #### [facility] [address] [place] [address] Dr. Miladys Samuel Monocytes/100 WBC (Bld) 10.9 % Normal 1.7-12.0 [facility] Comment on above: Performed By: #### A MY #### [facility] [address] [place] [address] Dr. Miladys Samuel NEUT # 3.9 103/ul Normal 1.4-6.5 [facility] Comment on above: Performed By: #### A MY #### [facility] [address] [place] [address] Dr. Miladys Samuel Neutrophils/100 WBC (Bld) 72.8 % Normal 43.0-75.0 [facility] Comment on above: Performed By: #### A MY #### [facility] [address] [address] [address] Miladys Samuel Platelet mean volume (Bld) [Entitic vol] 9.6 fL Normal 9.5-13.5 [facility] Comment on above: Performed By: #### A MY #### [facility] [address] [address] [address] Miladys Samuel PLT 121 103/ul Critically low 150-450 [facility] Comment on above: Performed By: #### A MY #### [facility] [address] [address] [address] Miladys Samuel RBC 4.84 106/ul Normal 4.70-6.10 [facility] Comment on above: Performed By: #### A MY #### [facility] [address] [address] [address] Miladys Samuel WBC 5.3 103/ul Normal 4.0-11.0 [facility] Comment on above: Performed By: #### A MY #### [facility] [address] [place] [address] Dr. Miladys Samuel ER URINE PROFILEon 3 Bilirubin Ql (U) Negative Normal NEGATIVE [facility] Comment on above: Performed By: #### SAMUEL RODRIGUEZRO ####[facility] [address] [address]DrElinor Samuel Clarity (U) CLEAR Normal CLEAR [facility] Comment on above: Performed By: #### SAMUEL RODRIGUEZRO ####[facility] [address] [address]DrElinor Samuel Color (U) YELLOW Normal YELLOW [facility] Comment on above: Performed By: #### SAMUEL RODRIGUEZRO ####[facility] [address] [address]DrElinor Samuel ERURAMONAD A micrscopic examina tion will be performed if indicated. Normal [facility] Comment on above: Performed By: #### GUIDO RODRIGUEZ ####[facility] [address] [address]Dr. Miladys Samuel Glucose Ql (U) Negative Normal NEGATIVE [facility] Comment on above: Performed By: #### GUIDO RODRIGUEZ ####[facility] [address] [address]Dr. Miladys Samuel Hemoglobin Ql (U) LARGE Abnormal NEGATIVE [facility] Comment on above: Performed By: #### GUIDO RODRIGUEZ ####[facility] Tluzwpnatz[address] [place], [place] [address]Dr. Miladys Samuel Ketones Ql (U) TRACE Abnormal NEGATIVE [facility] Comment on above: Performed By: #### GUIDO RODRIGUEZ ####[facility] [address]sfq[address] [place], [place] [address]Dr. Miladys Samuel LEUKOCYTES Negative Normal NEGATIVE [facility] Comment on above: Performed By: #### GUIDO RODRIGUEZ ####[facility] Gkpduvkmlz[address] [place], [place] [address]Dr. Miladys Samuel Nitrite Ql (U) Negative Normal NEGATIVE [facility] Comment on above: Performed By: #### GUIDO RODRIGUEZ ####[facility] Ajiogxkdgm[address] [place], [place] [address]Dr. Miladys Samuel pH (U) 6.0 [pH] Normal 5-9 [facility] Comment on above: Performed By: #### GUIDO RODRIGUEZ ####[facility] Zlnmcneqxe[address] [place], [place] [address]Dr. Miladys Samuel SPEC GRAVITY 1.010 Normal 1.005-<=1.0 25 [facility] Comment on above: Performed By: #### GUIDO RODRIGUEZ ####[facility] Ceitdmespi[address] [place], [place] [address]Dr. Miladys Samuel UA PROTEIN Negative Normal NEGATIVE/ TRACE [facility] Comment on above: Performed By: #### GUIDO RODRIGUEZ ####[facility] Edppuumnpt[address] [place], [place] [address]Dr. Miladys Samuel UR MICRO IND INDICATED Normal [facility] Comment on above: Performed By: #### E GUIDO FORRESTER ####[facility] [address] [address]Dr. Miladys Samuel Urobilinogen Qn (U) 0.2 {Kathie'U}/dL Normal 0.2 - 1. 0 [facility] Comment on above: Performed By: #### E SAMUEL FORRESTERRO ####[facility] [address] [address]Dr. Miladys Samuel LACTATE/LACTIC ACIDon 2022 Lactate [Moles/Vol] 1.9 mmol/L Normal 0.4-1.9 [facility] Comment on above: Performed By: #### A MY #### [facility] [address] [place] [address] Dr. Miladys Samuel LIPASEon 11-03-2022 Lipase [Catalytic activity/Vol] 106.0 U/L Normal 73.0-393.0 [facility] Comment on above: Performed By: #### A MY #### [facility] [address] [place] [address] Dr. Miladys Samuel POINT OF CARE GLUCOSEon 10-11 Glucose [Mass/Vol] 190 mg/dL Critically high [address] [place] [address] Comment on above: Performed By: #### L ACT #### [facility] [address] [place] [address] Dr. Miladys Samuel Glucose [Mass/Vol] 115 mg/dL Critically high -106 [facility] Comment on above: Performed By: #### P OCGLUC ####[facility] [address] [address]Dr. Miladys Samuel Glucose [Mass/Vol] 134 mg/dL Critically high -106 [facility] Comment on above: Performed By: #### P OCGLUC #### [facility] [address] [place] [address] Dr. Miladys Samuel Glucose [Mass/Vol] 153 mg/dL Critically high -106 [facility] Comment on above: Performed By: #### P OCGLUC ####[facility] [address] [address]Dr. Miladys Samuel PROF CHEM 8 (BAS METB)on Anion gap [Moles/Vol] 11.0 mmol/L Normal [facility] Comment on above: Performed By: #### B MP ####[facility] [address] [address]Dr. Miladys Samuel Calcium [Mass/Vol] 8.5 mg/dL Normal 8.5-10.1 [facility] Comment on above: Performed By: #### B MP ####[facility] Quqoihktdk[address] [place], [place] [address]Dr. Miladys Samuel Chloride [Moles/Vol] 101 mmol/L Normal 98-107 [facility] Comment on above: Performed By: #### B MP ####[facility] Y[address]vzxtvxe[address] [place], [place] [address]Dr. Miladys Samuel CO2 [Moles/Vol] 31.3 mmol/L Normal 21.0-32.0 [facility] Comment on above: Performed By: #### B MP ####[facility] Fekyxomsbk[address] [place], [place] [address]Dr. Miladys Samuel Creatinine [Mass/Vol] 0.95 mg/dL Normal 0.70-1.30 [facility] Comment on above: Performed By: #### B MP ####[facility] Nbxfqysmet[address] [place], [place] [address]Dr. Miladys Samuel EGFR-AF MALAYSIAN >60 Normal >=60 [facility] Comment on above: Performed By: #### B MP ####[facility] Fiknbumacj[address] [place], [place] [address]Dr. Miladys Samuel EGFR-NON AF MALAYSIAN >60 Normal >=60 [facility] Comment on above: Performed By: #### B MP ####[facility] Gpfymndein[address] [place], [place] [address]Dr. Miladys Samuel Glucose [Mass/Vol] 140 mg/dL Critically high 74-106 [facility] Comment on above: Performed By: #### B MP ####[facility] [address] [address]Dr. Miladys Samuel Potassium [Moles/Vol] 4.3 mmol/L Normal 3.5-5.1 [facility] Comment on above: Performed By: #### B MP ####[facility] [address] [address]Dr. Miladys Samuel Sodium [Moles/Vol] 139 mmol/L Normal 136-145 [facility] Comment on above: Performed By: #### B MP ####[facility] [address]rs[address]dyuhye[address] [place], [place] [address]Dr. Miladys Samuel Urea nitrogen [Mass/Vol] 12.0 mg/dL Normal 7.0-18.0 [facility] Comment on above: Performed By: #### B MP ####[facility] [address]fal[address] [place], [place] [address]Dr. Miladys Samuel Urea nitrogen/Creatinine [Mass ratio] 12.6 mg/mg Normal [facility] Comment on above: Performed By: #### B MP ####[facility] Fsamnrkvov[address] [place], [place] [address]Dr. Miladys Samuel URINE MICROSCOPIC ONLYon BACTERIA TRACE Abnormal NONE SEEN [facility] Comment on above: Performed By: #### SAMUEL RODRIGUEZRO ####[facility] Cnarsqxdwo[address] [place], [place] [address]Dr. Miladys Samuel Bacteria identified Cx Nom (U) NOT INDICATED Normal [facility] Comment on above: Performed By: #### SAMUEL RODRIGUEZRO ####[facility] W[address]pxsgdhy[address] [place], [place] [address]Dr. Miladys Samuel CAST NONE SEEN Normal NONE SEEN [facility] Comment on above: Performed By: #### SAMUEL RODRIGUEZRO ####[facility] Mbewmjemsg[address] [place], [place] [address]Dr. Miladys Samuel Crystals LM Nom (Urine sed) NONE SEEN Normal NONE SEEN [facility] Comment on above: Performed By: #### SAMUEL RODRIGUEZRO ####[facility] [address] [address]Dr. Miladys Samuel Epithelial cells LM Ql (Urine sed) RARE Normal NONE SEEN /RARE [facility] Comment on above: Performed By: #### GUIDO RODRIGUEZ ####[facility] [address] [address]Dr. Miladys Samuel MUCOUS NONE SEEN Normal NONE SEEN [facility] Comment on above: Performed By: #### UGIDO RODRIGUEZ ####[facility] [address] [address]Dr. Miladys Samuel RBC 2-5 Abnormal 0-2 [facility] Comment on above: Performed By: #### GUIDO RODRIGUEZ ####[facility] [address] [address]Dr. Miladys Samuel WBC 0-2 Abnormal NONE SEEN [facility] Comment on above: Performed By: #### GUIDO RODRIGUEZ ####[facility] [address] [address]Dr. Miladys Samuel XR KUB 1 VIEWon 11-03-2022 [...] MARY RODRIGUEZ Date: 2022-11-02 22:41 Normal [facility] CBC AUTO DIFFon 11-02-2022 BASO # 0.0 103/ul Normal 0.0-0.1 [facility] Comment on above: Performed By: #### C VDTB #### [facility] [address] [address] [address] Miladys Samuel Basophils/100 WBC (Bld) 0.3 % Normal 0.2-2.0 [facility] Comment on above: Performed By: #### C VDTBH #### [facility] [address] [address] [address] Miladys Samuel EO # 0.1 103/ul Normal 0.0-0.7 [facility] Comment on above: Performed By: #### C VDTBH #### [facility] [address] [place] [address] Dr. Miladys Samuel Eosinophils/100 WBC (Bld) 1.8 % Normal 0.9-7.0 [facility] Comment on above: Performed By: #### C VDTBH #### [facility] [address] [place] [address] Dr. Miladys Samuel Erythrocyte distribution width (RBC) [Ratio] 14.0 % Normal 11.0-15.0 [facility] Comment on above: Performed By: #### C VDTBH #### [facility] [address] [place] [address] Dr. Miladys Samuel Hematocrit (Bld) [Volume fraction] 44.1 % Normal 42.0-54.0 [facility] Comment on above: Performed By: #### C VDTB #### [facility] [address] [place] [address] Dr. Miladys Samuel Hemoglobin (Bld) [Mass/Vol] 14.6 g/dL Normal 14.0-18.0 [facility] Comment on above: Performed By: #### C VDTBH #### [facility] [address] [place] [address] Dr. Miladys Samuel IG # 0.02 10e3/ul Normal 0.00-0.03 [facility] Comment on above: Performed By: #### C VDTBH #### [facility] [address] [place] [address] Dr. Miladys Samuel IG % 0.3 % Normal 0.0-0.5 [facility] Comment on above: Performed By: #### C VDTBH #### [facility] [address] [place] [address] Dr. Miladys Samuel LYMPH # 1.2 103/ul Normal 1.2-3.8 [facility] Comment on above: Performed By: #### C VDTBH #### [facility] [address] [place] [address] Dr. Miladys Samuel Lymphocytes/100 WBC (Bld) 16.1 % Critically low 20.5-60.0 [facility] Comment on above: Performed By: #### C VDTBH #### [facility] [address] [place] [address] Dr. Miladys Samuel MANUAL DIFF REQ NO Normal [facility] Comment on above: Performed By: #### C VDTBH #### [facility] [address] [place] [address] Dr. Miladys Samuel MCH (RBC) [Entitic mass] 27.3 pg Normal 25.9-34.0 [facility] Comment on above: Performed By: #### C VDTBH #### [facility] [address] [place] [address] Dr. Miladys Samuel MCHC (RBC) [Mass/Vol] 33.1 g/dL Normal 29.9-35.2 [facility] Comment on above: Performed By: #### C VDTBH #### [facility] [address] [place] [address] Dr. Miladys Samuel MCV (RBC) [Entitic vol] 82.4 fL Normal 80.0-94.0 [facility] Comment on above: Performed By: #### C VDTBH #### [facility] [address] [place] [address] Dr. Miladys Samuel MONO # 0.4 103/ul Normal 0.3-0.8 [facility] Comment on above: Performed By: #### C VDTBH #### [facility] [address] [place] [address] Dr. Miladys Samuel Monocytes/100 WBC (Bld) 5.3 % Normal 1.7-12.0 [facility] Comment on above: Performed By: #### C VDTBH #### [facility] [address] [place] [address] Dr. Miladys Samuel NEUT # 5.8 103/ul Normal 1.4-6.5 [facility] Comment on above: Performed By: #### C VDTBH #### [facility] [address] [place], [place] [address] Dr. Miladys Samuel Neutrophils/100 WBC (Bld) 76.2 % Critically high 43.0-75.0 [facility] Comment on above: Performed By: #### C VDTBH #### [facility] [address] [place] [address] Dr. Miladys Samuel Platelet mean volume (Bld) [Entitic vol] 10.0 fL Normal 9.5-13.5 [facility] Comment on above: Performed By: #### C VDTBH #### [facility] [address] [place] [address] Dr. Miladys Samuel PLT 160 103/ul Normal 150-450 [facility] Comment on above: Performed By: #### C VDTBH #### [facility] [address] [place] [address] Dr. Miladys Samuel RBC 5.35 106/ul Normal 4.70-6.10 [facility] Comment on above: Performed By: #### C VDTBH #### [facility] [address] [place] [address] Dr. Miladys Samuel WBC 7.6 103/ul Normal 4.0-11.0 [facility] Comment on above: Performed By: #### C VDTBH #### [facility] [address] [place] [address] ABD/PELV W CONon [...] RYLAN YADAV Date: 2022-11-02 19:32 Normal [facility] Covid-19 PCR (CVDTBH)on 10-11 SARS-CoV-2 (COVID-19) RNA FELY+probe Ql (Unsp spec) Not detected Normal NOT DETECTED [facility] Comment on above: Result Comment: When diagnostic [...] for this test is supported by the [place] of Health and Human Service's declaration that [...] used). Performed By: #### C VDTB #### [facility] [address] [place] [address] Dr. Miladys Samuel LACTATE/LACTIC ACIDon 2022 Lactate [Moles/Vol] 3.1 mmol/L Critically high 0.4-1.9 [facility] Comment on above: Performed By: #### L ACT ####[facility] [address] [address]Dr. Miladys Samuel Lactate [Moles/Vol] 3.0 mmol/L Critically high 0.4-1.9 [facility] Comment on above: Performed By: #### L ACT #### [facility] [address] [place] [address] Dr. Miladys Samuel LIPASEon 11-02-2022 Lipase [Catalytic activity/Vol] 573.0 U/L Critically high 73.0-393.0 [facility] Comment on above: Performed By: #### A MY #### [facility] [address] [place] [address] Dr. Miladys Samuel PROF 14(COMP METB)on 023 Albumin [Mass/Vol] 4.2 g/dL Normal 3.4-5.0 [facility] Comment on above: Performed By: #### A MY #### [facility] [address] [place] [address] Dr. Miladys Samuel Albumin/Globulin [Mass ratio] 1.3 {ratio} Normal [facility] Comment on above: Performed By: #### A MY #### [facility] [address] [place] [address] Dr. Miladys Samuel ALP [Catalytic activity/Vol] 65 U/L Normal 46-116 [facility] Comment on above: Performed By: #### A MY #### [facility] [address] [place] [address] Dr. Miladys Samuel ALT [Catalytic activity/Vol] 37 U/L Normal 16-63 [facility] Comment on above: Performed By: #### A MY #### [facility] [address] [place] [address] Dr. Miladys Samuel Anion gap [Moles/Vol] 12.6 mmol/L Normal [facility] Comment on above: Performed By: #### A MY #### [facility] [address] [address] [address] Miladys Samuel AST [Catalytic activity/Vol] 45 U/L Critically high 15-37 [facility] Comment on above: Performed By: #### A MY #### [facility] [address] [place] [address] Dr. Miladys Samuel Bilirubin [Mass/Vol] 0.5 mg/dL Normal 0.2-1.0 [facility] Comment on above: Performed By: #### A MY #### [facility] [address] [place] [address] Dr. Miladys Samuel Calcium [Mass/Vol] 9.5 mg/dL Normal 8.5-10.1 [facility] Comment on above: Performed By: #### A MY #### [facility] [address] [place] [address] Dr. Miladys Samuel Chloride [Moles/Vol] 98 mmol/L Normal 98-107 [facility] Comment on above: Performed By: #### A MY #### [facility] [address] [place] [address] Dr. Miladys Samuel CO2 [Moles/Vol] 29.9 mmol/L Normal 21.0-32.0 [facility] Comment on above: Performed By: #### A MY #### [facility] [address] [place] [address] Dr. Miladys Samuel Creatinine [Mass/Vol] 0.97 mg/dL Normal 0.70-1.30 [facility] Comment on above: Performed By: #### A MY #### [facility] [address] [place] [address] Dr. Miladys Samuel EGFR-AF MALAYSIAN >60 Normal >=60 [facility] Comment on above: Performed By: #### A MY #### [facility] [address] [address] [address] Miladys Samuel EGFR-NON AF MALAYSIAN >60 Normal >=60 [facility] Comment on above: Performed By: #### A MY #### [facility] [address] [place] [address] Dr. Miladys Samuel Globulin (S) [Mass/Vol] 3.2 g/dL Normal [facility] Comment on above: Performed By: #### A MY #### [facility] [address] [place] [address] Dr. Miladys Samuel Glucose [Mass/Vol] 154 mg/dL Critically high 74-106 [facility] [place] Comment on above: Performed By: #### A MY #### [facility] [address] [place] [address] Dr. Miladys Samuel Potassium [Moles/Vol] 4.5 mmol/L Normal 3.5-5.1 [facility] Comment on above: Performed By: #### A MY #### [facility] [address] [place] [address] Dr. Miladys Samuel Protein [Mass/Vol] 7.4 g/dL Normal 6.4-8.2 [facility] Comment on above: Performed By: #### A MY #### [facility] [address] [place] [address] Dr. Miladys Samuel Sodium [Moles/Vol] 136 mmol/L Normal 136-145 [facility] Comment on above: Performed By: #### A MY #### [facility] [address] [place] [address] Dr. Miladys Samuel Urea nitrogen [Mass/Vol] 7.0 mg/dL Normal 7.0-18.0 [facility] Comment on above: Performed By: #### A MY #### [facility] [address] [place] [address] Dr. Miladys Samuel Urea nitrogen/Creatinine [Mass ratio] 7.2 mg/mg Normal [facility] Comment on above: Performed By: #### A MY #### [facility] [address] [place], [place] [address] Dr. Miladys Samuel PROTIMEon 11-02-2022 INR Coag (PPP) [Relative time] 1.02 {INR} Normal [facility] Comment on above: Performed By: #### P TT, PT ####[facility] [address] [id number]. Miladys Samuel INR GUIDELINES SEE BELOW Normal [facility] Comment on above: Result Comment: BRITTA RED INR: 2.0 - 3.0 CONDITIONS NOT LISTED BELOW 2.5 - 3.5 FOR PROSTHETIC HEART VALVE REPLACEMENT 2.5 - 3.5 RECURRENT THROMBOSIS Performed By: #### P TT, PT ####[facility] [address] [address]DrElinor Samuel PT Coag (PPP) [Time] 10.8 s Normal 9.0-11.6 [facility] Comment on above: Performed By: #### P TT, PT ####[facility] [address] [address]Dr. Miladys Samuel PTTon 11-02-2022 aPTT Coag (Bld) [Time] 24.6 s Normal 22.3-36.2 [facility] Comment on above: Performed By: #### P TT, PT ####[facility] [address] [address]Dr. Miladys Samuel XR KUB 1 VIEWon 11-02-2022 [...] MARY RODRIGUEZ Date: 2022-11-02 21:33 Normal [facility] 30on 08-20-2022 30 The patient is Moder ately Stable - Low risk of patient condition declining or worsening The patient's goals for the shift include comfort The clinical goals for the shift include comfort Over the shift, the patient did not make progress toward the following goals. Barriers to progression include pain. Recommendations to address these barriers include goo pain relief. Normal [facility] BASIC METABOLIC PANELon 12- Anion gap [Moles/Vol] 3 mmol/L Low 7-20 [facility] Comment on above: Performed By: #### L [id number] #### [facility] ([facility]) [address] [place] [address] Calcium [Mass/Vol] 8.0 mg/dL Low 8.6-10.3 [facility] Comment on above: Performed By: #### L [id number] #### [facility] ([facility]) [address] [place] [address] Chloride [Moles/Vol] 101 mmol/L Normal 98-107 [facility] Comment on above: Performed By: #### L [id number] #### [facility] ([facility]) [address] [place] [address] CO2 [Moles/Vol] 33 mmol/L High 21-31 [facility] Comment on above: Performed By: #### L [id number] #### [facility] ([facility]) [address] [place] [address] Creatinine [Mass/Vol] 0.83 mg/dL Normal 0.70-1.30 [facility] Comment on above: Performed By: #### L [id number] #### [facility] ([facility]) [address] [place] [address] GLOMERULAR FILTRATION RATE ML/MIN/1.73 SQ M.PREDICTED 91.7 mL/min/1.73m*2 Normal >60.0 [facility] Comment on above: Result Comment: The [facility]???s estimated glomerular filtration rate (eGFR) will no [...] group of individuals. Performed By: #### L [id number] #### [facility] ([facility]) [address] [place] [address] Glucose [Mass/Vol] 163 mg/dL High 70-100 [facility] Comment on above: Performed By: #### L [id number] #### [facility] ([facility]) [address] [place] [address] Potassium [Moles/Vol] 3.9 mmol/L Normal 3.5-5.1 [facility] Comment on above: Performed By: #### L [id number] #### [facility] ([facility]) [address] [place] [address] Sodium [Moles/Vol] 137 mmol/L Normal 136-145 [facility] Comment on above: Performed By: #### L [id number] #### [facility] ([facility]) [address] [place] [address] Urea nitrogen [Mass/Vol] 14 mg/dL Normal 7-25 [facility] Comment on above: Performed By: #### L [id number] #### [facility] ([facility]) [address] [place] [address] UREA NITROGEN/CREATININE (MASS RATIO) IN SER/PLAS 16.[address] [facility] Comment on above: Performed By: #### L [id number] #### [facility] ([facility]) [address] [place] [address] CBC WITH AUTO DIFFERENTIALon 08-20-2022 ERYTHROCYTE DISTRIBUTION WIDTH (RATIO) STANDARD DEVIATION 43.[address] [facility] Comment on above: Performed By: #### L [id number] #### [facility] ([facility]) [address] [place] [address] Erythrocyte distribution width (RBC) [Ratio] 13.6 % Normal 11.5-15.0 [facility] Comment on above: Performed By: #### L [id number] #### [facility] ([facility]ER) [address] [place] [address] ERYTHROCYTE MEAN CORPUSCULAR HEMOGLOBIN CONCENTRATION (G/DL) BY AUTOMATED 32.5 g/dL Normal 32.0-35.0 [facility] Comment on above: Performed By: #### L [id number] #### [facility] ([facility]) [address] [place] [address] Hematocrit (Bld) [Volume fraction] 36.0 % Low 39.0-55.0 [facility] Comment on above: Performed By: #### L [id number] #### [facility] ([facility]) [address] [place] [address] Hemoglobin (Bld) [Mass/Vol] 11.7 g/dL Low 13.0-17.0 [facility] Comment on above: Performed By: #### L [id number] #### [facility] ([facility]) [address] [place] [address] MCH (RBC) [Entitic mass] 28.3 pg Normal 27.0-33.0 [facility] [facility] Comment on above: Performed By: #### L [id number] #### [facility] ([facility]) [address] [place] [address] MCV (RBC) [Entitic vol] 87.2 fL Normal 82.0-98.0 [facility] Comment on above: Performed By: #### L [id number] #### [facility] ([facility]) [address] [place] [address] NRBC (PER 100 WBCS) BY AUTOMATED COUNT 0.0 % Normal 0.0-0.0 [facility] Comment on above: Performed By: #### L [id number] #### [facility] ([facility]) [address] [address] PLATELETS (10*3/UL) IN BLOOD AUTOMATED COUNT 98 10*3/uL Low 150-400 [facility] Comment on above: Performed By: #### L [id number] #### [facility] ([facility] [address] [place] [address] RBC (Bld) [#/Vol] 4.13 10*6/uL Low 4.20-5.70 [facility] Comment on above: Performed By: #### L [id number] #### [facility] ([facility]) [address] [place] [address] WBC (Bld) [#/Vol] 3.69 10*3/uL Low 4.00-10.60 [facility] Comment on above: Performed By: #### L [id number] #### [facility] ([facility]) [address] [place] [address] DSon 08-20-2022 DS ------ -- Attestation signed by Lazaro Pickard MD at 09/03/2022 6:07 PM Attending Physician Statement I have discussed the case, including pertinent history and exam findings with Dr. Covarrubias, surgical nurse and have personally seen the patient. I agree with the assessment, plan and orders as documented. [phone] pager [phone] phone -- [facility] DISCHARGE SUMMARY Admission Admitted 08/18/2022 for bowel obstruction Discharge Diagnosis SBO (small bowel obstruction) ([facility] Discharge Disposition Home or Self Care Discharge [...] DM, HTN, HLD, pancreatitis who presents to [facility] as a transfer from [facility] for evaluation of SBO on 08/18. [...] 0.01 Platel (more content not included)... Normal [facility] MAGNESIUMon 08-20-2022 Magnesium [Mass/Vol] 1.9 mg/dL Normal 1.9-2.7 [facility] Comment on above: Performed By: #### L [id number] #### [facility] ([facility]) [address] [place] [address] MANUAL DIFFERENTIALon 2021 BASOPHILS (10*3/UL) IN BLOOD BY CALCULATION 0.01 10*3/uL Normal [facility] Comment on above: Performed By: #### L [id number] #### [facility] ([facility]) [address] [place] [address] BASOPHILS/100 LEUKOCYTES IN BLOOD BY AUTOMATED COUNT 0.3 % Normal 0.0-1.0 [facility] Comment on above: Performed By: #### L [id number] #### [facility] ([facility]) [address] [place] [address] EOSINOPHILS (10*3/UL) IN BLOOD BY CALCULATION 0.13 10*3/uL Normal [facility] Comment on above: Performed By: #### L [id number] #### [facility] ([facility]) [address] [place] [address] EOSINOPHILS/100 LEUKOCYTES IN BLOOD BY AUTOMATED COUNT 3.5 % Normal 0.0-6.0 [facility] Comment on above: Performed By: #### L [id number] #### [facility] ([facility]) [address] [place] [address] IMMATURE GRANULOCYTES (10*3/UL) IN BLOOD BY CALCULATION 0.[address] [facility] Comment on above: Performed By: #### L [id number] #### [facility] ([facility]) [address] [place] [address] IMMATURE GRANULOCYTES/100 LEUKOCYTES IN BLOOD BY AUTOMATED COUNT 0.3 % Normal 0.0-1.0 [facility] Comment on above: Performed By: #### L [id number] #### [facility] ([facility]) [address] [place] [address] LYMPHOCYTES (10*3/UL) IN BLOOD BY CALCULATION 0.41 10*3/uL Low 1.20-4.00 [facility] Comment on above: Performed By: #### L [id number] #### [facility] ([facility]) [address] [place] [address] LYMPHOCYTES/100 LEUKOCYTES IN BLOOD BY AUTOMATED COUNT 11.1 % Low 20.0-45.0 [facility] Comment on above: Performed By: #### L [id number] #### [facility] ([facility] [address] [place] [address] MONOCYTES (10*3/UL) IN BLOOD BY CALCUATION 0.44 10*3/uL Normal [facility] Comment on above: Performed By: #### L [id number] #### [facility] ([facility] [address] [place] [address] MONOCYTES/100 LEUKOCYTES IN BLOOD BY AUTOMATED COUNT 11.9 % Normal 5.0-12.0 [facility] Comment on above: Performed By: #### L [id number] #### [facility] ([facility]) [address] [place] [address] NEUTROPHILS (10*3/UL) IN BLOOD BY CALCULATION 2.7 10*3/uL Normal 1.6-7.6 [facility] Comment on above: Performed By: #### L [id number] #### [facility] ([facility]) [address] [place] [address] NEUTROPHILS/100 LEUKOCYTES IN BLOOD BY AUTOMATED COUNT 72.9 % High 40.0-72.0 [facility] Comment on above: Performed By: #### L [id number] #### [facility] ([facility] [address] [place] [address] PHOSPHORUSon 08-20-2022 Magnesium [Mass/Vol] 1.8 mg/dL Low 2.5-5.0 [facility] Comment on above: Performed By: #### L [id number] #### [facility] ([facility] [address] [place] [address] 30on 08-19-2022 30 The patient is Moder [...] goals for the shift include comfort Normal [facility] 30 Problem: Pain - Adul t Goal: [...] barriers include monitor I&O, manage nausea. Normal [facility] BASIC METABOLIC PANELon 12-1 Anion gap [Moles/Vol] 8 mmol/L Normal 7-20 [facility] Comment on above: Performed By: #### L [id number] ####[facility] ([facility])[address] [place] [address] Calcium [Mass/Vol] 8.9 mg/dL Normal 8.6-10.3 [facility] Comment on above: Performed By: #### L [id number] ####[facility] ([facility])[address] [place] [address] Chloride [Moles/Vol] 99 mmol/L Normal 98-107 [facility] Comment on above: Performed By: #### L [id number] ####[facility] ([facility])[address] [place] [address] CO2 [Moles/Vol] 31 mmol/L Normal 21-31 [facility] Comment on above: Performed By: #### L [id number] ####[facility] ([facility])[address] [place] [address] Creatinine [Mass/Vol] 0.91 mg/dL Normal 0.70-1.30 [facility] Comment on above: Performed By: #### L [id number] ####[facility] ([facility])[address] [place] [address] GLOMERULAR FILTRATION RATE ML/MIN/1.73 SQ M.PREDICTED 87.5 mL/min/1.73m*2 Normal >60.0 [facility] Comment on above: Result Comment: The [facility]???s estimated glomerular filtration rate (eGFR) will no [...] of individuals. Performed By: #### L [id number] ####[facility] ([facility])[address] [place] [address] Glucose [Mass/Vol] 139 mg/dL High 70-100 [facility] Comment on above: Performed By: #### L [id number] ####[facility] ([facility])[address] [place] [address] Potassium [Moles/Vol] 4.4 mmol/L Normal 3.5-5.1 [facility] Comment on above: Performed By: #### L [id number] ####[facility] ([facility])[address] [place] [address] Sodium [Moles/Vol] 138 mmol/L Normal 136-145 [facility] Comment on above: Performed By: #### L [id number] ####[facility] ([facility] [place] [address] Urea nitrogen [Mass/Vol] 16 mg/dL Normal 7-25 [facility] Comment on above: Performed By: #### L [id number] ####[facility] ([facility])[address] [place] [address] UREA NITROGEN/CREATININE (MASS RATIO) IN SER/PLAS 17.[address] [facility] Comment on above: Performed By: #### L [id number] ####[facility] ([facility])[address] [place] [address] CBC WITH AUTO DIFFERENTIALon 08-19-2022 Basophils (Bld) [#/Vol] 0.01 10*3/uL Normal 0.00-0.20 [facility] Comment on above: Performed By: #### L [id number] ####[facility] ([facility])[address] [place] [address] Basophils/100 WBC (Bld) 0.2 % Normal 0.0-1.0 [facility] Comment on above: Performed By: #### L [id number] ####[facility] ([facility])[address] [place] [address] Eosinophils (Bld) [#/Vol] 0.01 10*3/uL Normal 0.00-0.50 [facility] Comment on above: Performed By: #### L [id number] ####[facility] ([facility])[address] [place] [address] Eosinophils/100 WBC (Bld) 0.2 % Normal 0.0-6.0 [facility] Comment on above: Performed By: #### L [id number] ####[facility] ([facility])[address] [place] [address] ERYTHROCYTE DISTRIBUTION WIDTH (RATIO) STANDARD DEVIATION 43.[address] [facility] Comment on above: Performed By: #### L [id number] ####[facility] ([facility])[address] [place] [address] Erythrocyte distribution width (RBC) [Ratio] 14.0 % Normal 11.5-15.0 [facility] Comment on above: Performed By: #### L [id number] ####[facility] ([facility])[address] [place] [address] ERYTHROCYTE MEAN CORPUSCULAR HEMOGLOBIN CONCENTRATION (G/DL) BY AUTOMATED 33.5 g/dL Normal 32.0-35.0 [facility] Comment on above: Performed By: #### L [id number] ####[facility] ([facility])[address] [place] [address] Hematocrit (Bld) [Volume fraction] 43.3 % Normal 39.0-55.0 [facility] Comment on above: Performed By: #### L [id number] ####[facility] ([facility])[address] [place] [address] Hemoglobin (Bld) [Mass/Vol] 14.5 g/dL Normal 13.0-17.0 [facility] Comment on above: Performed By: #### L [id number] ####[facility] ([facility])[address] [place] [address] Immature granulocytes (Bld) [#/Vol] 0.02 10*3/uL Normal 0.00-0.20 [facility] Comment on above: Performed By: #### L [id number] ####[facility] ([facility])[address] [place] [address] Immature granulocytes/100 WBC (Bld) 0.3 % Normal 0.0-1.0 [facility] Comment on above: Performed By: #### L [id number] ####[facility] ([facility])[address] [place] [address] Lymphocytes (Bld) [#/Vol] 0.40 10*3/uL Low 1.20-4.00 [facility] Comment on above: Performed By: #### L [id number] ####[facility] ([facility])[address] [place] [address] Lymphocytes/100 WBC (Bld) 6.7 % Low 20.0-45.0 [facility] Comment on above: Performed By: #### L [id number] ####[facility] ([facility])[address] [place] [address] MCH (RBC) [Entitic mass] 28.8 pg Normal 27.0-33.0 [facility] Comment on above: Performed By: #### L [id number] ####[facility] ([facility])[address] [place] [address] MCV (RBC) [Entitic vol] 85.9 fL Normal 82.0-98.0 [facility] Comment on above: Performed By: #### L [id number] ####[facility] ([facility] [place] [address] Monocytes (Bld) [#/Vol] 0.46 10*3/uL Normal 0.10-1.00 [facility] Comment on above: Performed By: #### L [id number] ####[facility] ([facility])[address] [place] [address] Monocytes/100 WBC (Bld) 7.7 % Normal 5.0-12.0 [facility] Comment on above: Performed By: #### L [id number] ####[facility] ([facility])[address] [place] [address] Neutrophils (Bld) [#/Vol] 5.05 10*3/uL Normal 1.60-7.60 [facility] Comment on above: Performed By: #### L [id number] ####[facility] ([facility])[address] [place] [address] Neutrophils/100 WBC (Bld) 84.9 % High 40.0-72.0 [facility] Comment on above: Performed By: #### L [id number] ####[facility] ([facility])[address] [place] [address] NRBC (PER 100 WBCS) BY AUTOMATED COUNT 0.0 % Normal 0.0-0.0 [facility] Comment on above: Performed By: #### L [id number] ####[facility] ([facility] [place] [address] PLATELETS (10*3/UL) IN BLOOD AUTOMATED COUNT 134 10*3/uL Low 150-400 [facility] Comment on above: Performed By: #### L [id number] ####[facility] ([facility] [place] [address] RBC (Bld) [#/Vol] 5.04 10*6/uL Normal 4.20-5.70 [facility] Comment on above: Performed By: #### L [id number] ####[facility] ([facility])[address] [place] [address] WBC (Bld) [#/Vol] 5.95 10*3/uL Normal 4.00-10.60 [facility] Comment on above: Performed By: #### L [id number] ####[facility] ([facility])[address] [place] [address] MAGNESIUMon 08-19-2022 Magnesium [Mass/Vol] 1.6 mg/dL Low 1.9-2.7 [facility] Comment on above: Performed By: #### L [id number] #### [facility] ([facility]) [address] [place] [address] PHOSPHORUSon 08-19-2022 Magnesium [Mass/Vol] 4.7 mg/dL Normal 2.5-5.0 [facility] Comment on above: Performed By: #### L [id number] #### [facility] ([facility]) [address] [place] [address] CBC AUTO DIFFon 08-18-2022 BASO # 0.0 103/ul Normal 0.0-0.1 [facility] Comment on above: Performed By: #### C VDTBH #### [facility] [address] [place] [address] Dr. Miladys Samuel Basophils/100 WBC (Bld) 0.2 % Normal 0.2-2.0 [facility] Comment on above: Performed By: #### C VDTBH #### [facility] [address] [place] [address] [address] Miladys Samuel EO # 0.1 103/ul Normal 0.0-0.7 [facility] Comment on above: Performed By: #### C VDTBH #### [facility] [address] [place] [address] Dr. Miladys Samuel Eosinophils/100 WBC (Bld) 1.2 % Normal 0.9-7.0 [facility] Comment on above: Performed By: #### C VDTBH #### [facility] [address] [place] [address] Dr. Miladys Samuel Erythrocyte distribution width (RBC) [Ratio] 13.5 % Normal 11.0-15.0 [facility] Comment on above: Performed By: #### C VDTBH #### [facility] [address] [place] [address] Dr. Miladys Samuel Hematocrit (Bld) [Volume fraction] 46.0 % Normal 42.0-54.0 [facility] Comment on above: Performed By: #### C VDTBH #### [facility] [address] [place] [address] Dr. Miladys Samuel Hemoglobin (Bld) [Mass/Vol] 15.3 g/dL Normal 14.0-18.0 [facility] Comment on above: Performed By: #### C VDTBH #### [facility] [address] [place] [address] Dr. Miladys Samuel IG # 0.02 10e3/ul Normal 0.00-0.03 [facility] Comment on above: Performed By: #### C VDTBH #### [facility] [address] [place] [address] Dr. Miladys Samuel IG % 0.2 % Normal 0.0-0.5 [facility] Comment on above: Performed By: #### C VDTBH #### [facility] [address] [place] [address] Dr. Miladys Samuel LYMPH # 0.7 103/ul Critically low 1.2-3.8 [facility] Comment on above: Performed By: #### C VDTBH #### [facility] [address] [place] [address] Dr. Miladys Samuel Lymphocytes/100 WBC (Bld) 8.0 % Critically low 20.5-60.0 [facility] Comment on above: Performed By: #### C VDTBH #### [facility] [address] [place] [address] Dr. Miladys Samuel MANUAL DIFF REQ NO Normal [facility] Comment on above: Performed By: #### C VDTBH #### [facility] [address] [address] [address] Miladys Samuel MCH (RBC) [Entitic mass] 27.9 pg Normal 25.9-34.0 [facility] Comment on above: Performed By: #### C VDTBH #### [facility] [address] [address] [address] Miladys Samuel MCHC (RBC) [Mass/Vol] 33.3 g/dL Normal 29.9-35.2 [facility] Comment on above: Performed By: #### C VDTBH #### [facility] [address] [place] [address] Dr. Miladys Samuel MCV (RBC) [Entitic vol] 83.9 fL Normal 80.0-94.0 [facility] Comment on above: Performed By: #### C VDTBH #### [facility] [address] [place] [address] Dr. Miladys Samuel MONO # 0.5 103/ul Normal 0.3-0.8 [facility] Comment on above: Performed By: #### C VDTBH #### [facility] [address] [address] [address] Miladys Samuel Monocytes/100 WBC (Bld) 5.5 % Normal 1.7-12.0 [facility] Comment on above: Performed By: #### C VDTBH #### [facility] [address] [place] [address] Dr. Miladys Samuel NEUT # 7.1 103/ul Critically high 1.4-6.5 [facility] Comment on above: Performed By: #### C VDTBH #### [facility] [address] [address] [address] Miladys Samuel Neutrophils/100 WBC (Bld) 84.9 % Critically high 43.0-75.0 [facility] Comment on above: Performed By: #### C VDTBH #### [facility] [address] [place] [address] Dr. Miladys Samuel Platelet mean volume (Bld) [Entitic vol] 10.1 fL Normal 9.5-13.5 [facility] Comment on above: Performed By: #### C VDTBH #### [facility] [address] [place], [place] [address] Dr. Miladys Samuel PLT 154 103/ul Normal 150-450 [facility] Comment on above: Performed By: #### C VDTBH #### [facility] [address] [place], [place] [address] Dr. Miladys Samuel RBC 5.48 106/ul Normal 4.70-6.10 [facility] Comment on above: Performed By: #### C VDTBH #### [facility] [address] [place], [place] [address] Dr. Miladys Samuel WBC 8.4 103/ul Normal 4.0-11.0 [facility] Comment on above: Performed By: #### C VDTBH #### [facility] [address] [place], [place] [address] ABD/PELV W CONon [...] MARY HOGAN Date: 2022-08-18 12:02 Normal [facility] EDNURSon 08-18-2022 EDNURS Pt here from [place] for SBO. Pt has IV. Normal [facility] EDPROVon 08-18-[address] [facility] Fe [facility] [id number] EMERGENCY DEPARTMENT ENCOUNTER CHIEF COMPLAINT Chief Complaint Patient presents with Abdominal Pain GI Problem HISTORY OF PRESENT ILLNESS 67 y/o male with a h/o CAD s/p CABG, DM, HTN, HLD, pancreatitis presents to the ED as a transfer from [facility] for evaluation of SBO. Pt reports [...] Sat Aug 18, 2022 1610 Sent by [facility] accepted by Dr. Pickard for general surgery admission. [WS] [id number] Reviewed records sent with patient from outside facility. CT abdomen and pelvis revealed moderate to high-grade small bowel obstruction just proximal to the level of the ileocolic anastomosis in the right anterior abdomen, no free air or extraluminal gas to indicate perforation. Lipase within normal limits. CMP with slightly elevated ALT and AST. CBC unremarkable. [JS] [id number] Discussed the case with gen surg who [...] and imag (more content not included)... Normal [facility] EDPROV HPI Chief Complaint Patient presents with Abdominal Pain GI Problem Patient sent by [facility] for admission to general surgery for SBO. Pt accepted by Dr. Pickard [place] Coma Scale Score: 15 Patient History History [...] Sat Aug 18, 2022 1610 Sent by [facility] accepted by Dr. Pickard [...] as of 08/20/22957 SBO (small bowel obstruction) ([facility] Attestion Leo Allred MD 08/20/[address] [facility] HPon 08-18-2022 ------ -- Attestation signed by Lazaro Pickard MD at 08/22/2022 1:27 PM Attending Physician Statement I have discussed the case, including pertinent history and exam findings with Dr. Covarrubias, surgical nurse and have personally seen the patient. I agree with the assessment, plan and orders as documented. [phone] pager [phone] phone -- [facility] HISTORY & PHYSICAL Reason for Admission: SBO History of Present Illness: Elsa Espinoza is a 67 y.o. male w/ PMH of h/o CAD s/p CABG, DM, HTN, HLD, pancreatitis who presents to [facility] as a transfer from [facility] for evaluation of SBO. atient has [...] 19, hei (more content not included)... Normal [facility] LACTIC ACID WITH 4 HOUR REFL EXon 08-18-2022 LACTATE (MMOL/L) IN SER/PLAS 1.0 mmol/L Normal 0.5-2.2 [facility] Comment on above: Performed By: #### L [id number] #### [facility] ([facility]) [address] [place] [address] LIPASEon 08-18-2022 Lipase [Catalytic activity/Vol] 290.0 U/L Normal 73.0-393.0 [facility] Comment on above: Performed By: #### A MY #### [facility] [address] [place] [address] Dr. Miladys Samuel PROF 14(COMP METB)on 022 Albumin [Mass/Vol] 4.2 g/dL Normal 3.4-5.0 [facility] Comment on above: Performed By: #### C VDTBH #### [facility] [address] [place] [address] Dr. Miladys Samuel Albumin/Globulin [Mass ratio] 1.2 {ratio} Normal [facility] Comment on above: Performed By: #### C VDTBH #### [facility] [address] [place] [address] Dr. Miladys Samuel ALP [Catalytic activity/Vol] 82 U/L Normal 46-116 [facility] Comment on above: Performed By: #### C VDTBH #### [facility] [address] [place] [address] Dr. Miladys Samuel ALT [Catalytic activity/Vol] 75 U/L Critically high 16-63 [facility] Comment on above: Performed By: #### C VDTBH #### [facility] [address] [place] [address] Dr. Miladys Samuel Anion gap [Moles/Vol] 10.9 mmol/L Normal [facility] Comment on above: Performed By: #### C VDTBH #### [facility] [address] [address] [address] Miladys Samuel AST [Catalytic activity/Vol] 116 U/L Critically high 15-37 [facility] Comment on above: Performed By: #### C VDTBH #### [facility] [address] [place] [address] Dr. Miladys Samuel Bilirubin [Mass/Vol] 0.7 mg/dL Normal 0.2-1.0 [facility] Comment on above: Performed By: #### C VDTBH #### [facility] [address] [place] [address] Dr. Miladys Samuel Calcium [Mass/Vol] 9.5 mg/dL Normal 8.5-10.1 [facility] Comment on above: Performed By: #### C VDTBH #### [facility] [address] [place] [address] Dr. Miladys Samuel Chloride [Moles/Vol] 98 mmol/L Normal 98-107 [facility] Comment on above: Performed By: #### C VDTBH #### [facility] [address] [place] [address] Dr. Miladys Samuel CO2 [Moles/Vol] 31.4 mmol/L Normal 21.0-32.0 [facility] Comment on above: Performed By: #### C VDTBH #### [facility] [address] [place] [address] Dr. Miladys Samuel Creatinine [Mass/Vol] 1.04 mg/dL Normal 0.70-1.30 [facility] Comment on above: Performed By: #### C VDTBH #### [facility] [address] [place] [address] Dr. Miladys Samuel EGFR-AF MALAYSIAN >60 Normal >=60 [facility] Comment on above: Performed By: #### C VDTBH #### [facility] [address] [place] [address] Dr. Miladys Samuel EGFR-NON AF MALAYSIAN >60 Normal >=60 [facility] Comment on above: Performed By: #### C VDTBH #### [facility] [address] [place] [address] Dr. Miladys Samuel Globulin (S) [Mass/Vol] 3.5 g/dL Normal [facility] Comment on above: Performed By: #### C VDTBH #### [facility] [address] [place] [address] Dr. Miladys Samuel Glucose [Mass/Vol] 181 mg/dL Critically high 74-106 T [facility] Comment on above: Performed By: #### C VDTBH #### [facility] [address] [place] [address] Dr. Miladys Samuel Potassium [Moles/Vol] 4.3 mmol/L Normal 3.5-5.1 [facility] Comment on above: Performed By: #### C VDTBH #### [facility] [address] [place] [address] Dr. Miladys Samuel Protein [Mass/Vol] 7.7 g/dL Normal 6.4-8.2 [facility] Comment on above: Performed By: #### C VDTBH #### [facility] [address] [place] [address] Dr. Miladys Samuel Sodium [Moles/Vol] 136 mmol/L Normal 136-145 [facility] Comment on above: Performed By: #### C VDTBH #### [facility] [address] [place] [address] Dr. Miladys Samuel Urea nitrogen [Mass/Vol] 15.0 mg/dL Normal 7.0-18.0 [facility] Comment on above: Performed By: #### C VDTBH #### [facility] [address] [place] [address] Dr. Miladys Samuel Urea nitrogen/Creatinine [Mass ratio] 14.4 mg/mg Normal [facility] Comment on above: Performed By: #### C VDTBH #### [facility] [address] [place] [address] Dr. Miladys Samuel XR Knee Complete Left*on [...] by Justo Vidal on 02/08/2022 1442 Normal [facility] Assistant Laboratory - Chemistry and C hemistry - challengeon 11-14-2021 Cholesterol [Mass/Vol] 118\S\118 below low threshold 140-200 [facility] 250 DO Work Phone: Comment on above: Chol less than 200 m g/dl low risk Chol 201-239 mg/dl borderline risk Chol 240 mg/dl and greater high risk Cholesterol in LDL [Mass/Vol] 65\S\65 Normal 0-100 [facility] 250 DO Work Phone: Comment on above: LDL ATP III CLASSIFI CATION LDL less than 100 mg/dL Optimal LDL 100-129 mg/dL Near or above optimal LDL 130-159 mg/dL Borderline high LDL 160-189 mg/dL High LDL greater than 189 mg/dL Very high Laboratory - Microbiology an d Antimicrobial susceptibilityon 11-14-2021 SARS-CoV-2 (COVID-19) RNA FELY+probe Ql (Unsp spec) [facility] 250 DO Work Phone: No Panel Informationon 11-14 39.3\S\39.3 above high threshold 25.1-36.5 [facility] 250 DO Work Phone: Comment on above: PERFORMED BY:[address] [place] [address] [address] [place], [place] [phone] MEDICAL DIRECTORJORDANA THACKER M.D. 1.0\S\1.0 Normal [facility] 250 DO Work Phone: Comment on above: [...] valves: 3 - 4.5 11.5\S\11.5 Normal 9.0-12.9 [facility] 250 DO Work Phone: [phone] 0.0\S\0.0 Normal 0-0.5 [facility] 250 DO Work Phone: [phone] Comment on above: PERFORMED BY:[address] [address] [address] [place], [place] [phone] MEDICAL DIRECTORJORDANA THACKER M.D. 0.2\S\0.2 Normal 0.0-0.45 [facility] 250 DO Work Phone: [phone] 0.4\S\0.4 Normal 0.0-0.8 [facility] 250 DO Work Phone: [phone] 0.7\S\0.7 below low threshold 1.00-4.8 [facility] 250 DO Work Phone: 2.5\S\2.5 Normal 1.8-7.7 [facility] 250 DO Work Phone: 0.6\S\0.6 Normal . [facility] 250 DO Work Phone: 4.5\S\4.5 Normal . [facility] 250 DO Work Phone: 10.0\S\10.0 Normal . [facility] 250 DO Work Phone: 18.3\S\18.3 Normal . [facility] 250 DO Work Phone: 66.6\S\66.6 Normal . [facility] 250 DO Work Phone: 7.5\S\7.5 Normal 6.6-10.1 [facility] 250 DO Work Phone: 185\S\185 Normal 150-450 [facility] 250 DO Work Phone: [phone] 14.7\S\14.7 Normal 12.0-14.8 [facility] 250 DO Work Phone: 32.4\S\32.4 below low threshold 32.5-35.6 [facility] 250 DO Work Phone: 26.0\S\26.0 below low threshold 27.5-35.2 [facility] 250 DO Work Phone: [phone] 80.3\S\80.3 below low threshold 83.5-101 [facility] 250 DO Work Phone: [phone] 34.2\S\34.2 below low threshold 38.8-50.0 [facility] 250 DO Work Phone: 11.1\S\11.1 below low threshold 13.0-17.0 [facility] 250 DO Work Phone: 4.26\S\4.26 Normal 3.90-5.60 [facility] 250 DO Work Phone: 3.7\S\3.7 below low threshold 4.1-10.5 [facility] 250 DO Work Phone: 27.9\S\27.9 Normal 22.0-30.0 [facility] 250 DO Work Phone: [phone] 101\S\101 Normal 95-114 [facility] 250 DO Work Phone: 4.4\S\4.4 Normal 3.5-5.1 [facility] 250 DO Work Phone: [phone] 138\S\138 Normal 136-146 [facility] marino 250 DO Work Phone: [phone] 6\S\6 below low threshold 9-23 [facility] Sandra marino 250 DO Work Phone: > 60 Normal Darren Melendez 250 DO Work Phone: Comment on above: GFR estimated refere nce range: According to KDOQI guidelines, <60 ml/min/1.73m2 is sufficient to diagnose a patient with chronic kidney disease. 0.99\S\0.99 Normal 0.64-1.27 [facility] Melendez 250 DO Work Phone: 3.3\S\3.3 Normal <5.0 Darren Melendez 250 DO Work Phone: Comment on above: PERFORMED BY:[address] [place] [address] [address] [place], [place] [phone] MEDICAL DIRECTORJORDANA THACKER M.D. 17\S\17 Normal [facility] Catia Monreal DO Work Phone: 86\S\86 Normal 35-149 [facility] [place] Catia Monreal DO Work Phone: Comment on above: TRIG ATP III CLASSIF ICATION TRIG less than 150 mg/dL Normal TRIG 150-199 mg/dL Borderline high TRIG 200-500 mg/dL High TRIG greater than 500 mg/dL Very high Standard traceable to the Center for Disease Conrtrol and Prevention (CDC) test method. 36\S\36 Normal 29-71 [facility] Catia Monreal DO Work Phone: Comment on above: HDL CHOL ATP-III CLA SSIFICATION Cardiovascular Risk HDL > or equal to 60 mg/dL LOW HDL < 40 mg/dL HIGH Negative Normal Negative [facility] [place] Catia Monreal DO Work Phone: Comment on above: This is a duplicate Daphnie SARS Antigen (ESTELA) result to be used for statistical tracking purpose only.PERFORMED BY:[place] [place] [address] [place], [place] [phone] MEDICAL DIRECTORJORDANA THACKER M.D. CT ABDOMEN AND PELVIS W ORAL CONTRASTon 11-09-2021 CT ABDOMEN AND PELVIS W ORAL CONTRAST [facility] Department of Radiology [address] [place] [id number] Patient Name: ELSA ESPINOZA : 1955 Sex: M Age: Race: White Pt. Location: 85 Patient Status: O Ordered Date: 11/07/2021 3:05:00 PM Completed Date: 11/09/2021 12:18 PM Requesting Provider: LAZARO PICKARD Attending Provider: LAZARO PICKARD Report Copy To: NIKUNJ MARI Signs & Symptoms: R10.31 Right lower quadrant pain I10 History: [place] needs to come early to drink Comments: [...] wall. Electronically signed: Cristal Fernandes. Transcribed by: [email or web address], User Resident: Electronically Signed by: CRISTAL FERNANDES @ 11/09/2021 01:09 PM Normal [facility] CARDIAC STRESS/REST INJE CTIONon 11-06-2021 [facility] CARDIAC STRESS/REST INJECTION Patient Name: ELSA ESPINOZA STUDY: MYOCARDIAL PERFUSION STRESS TEST WITH EXERCISE CONVERTED TO LEXISCAN Performing facility: [facility], [address] [place] [address], [address], [place], [place] [address] Provider: Ivanna Chavarria DO, [facility] PCP: Dr. MARI Supervising provider: Ivanna Graves MD, [facility] INDICATION: AORTIC STENOSIS; ATHEROSCLEROSIS OF CABG OF [place] HEART WITHOUT ANGINA PECTORIS; MERIDA; ESSENTIAL HTN; HYPERLIPIDEMIA. HISTORY: Gender: M; Age: 66 y/o ; Height: 180.34 cm; Weight: 82.0609205 kg. HIGH CHOLESTEROL; DIABETES; HTN; MILD ; FATIGE. Denies smoking. S/P PTCA CABG on 2001. COMPARISON: No comparison. ACCESSION NUMBER(S): [id number]; [id number]; [id number] ORDERING CLINICIAN: LAURA BALDERAS TECHNIQUE: ONE DAY [...] Electronically signed by: AVERY LEMON MD Normal [facility] No Panel Informationon 11-06 Normal [facility] 250 DO Work Phone: Office Visit (Cardiology)on 10-11-2021 Follow-up visit Diagnoses/Problems Assessed Dyspnea on exertion (786.09) (R06.00) 2 month progressive worsening with change in exercise capacity Comfortable at rest No pulmonary history Atherosclerosis of coronary artery bypass graft of [place] heart without angina pectoris (414.05) (I25.810) 2001 CABG March 2017: PCI/PALMA to SVG- [id number] HONG-LAD patent Radial-dRCA patent SVG-Diag NEMATOLOGIST March [address] depression [...] Atherosclerosis of coronary artery bypass graft of [place] heart without angina pectoris, Dyspnea on exertion [...] Atherosclerosis of coronary artery bypass graft of [place] heart without angina pectoris (414.05) (I25.810) BMI 26.0-26.9,adult (V85.22) (Z68.26) Diabetes mellitus (250.00) (E11.9) Essential hypertension (401.9) (I10) Fatigue (780.79) (R53.83) GERD (gastroesophageal reflux disease) (530.81 (more content not included)... Normal [employer] Tobacco Screening.on 022 Fall risk assessment a) No falls within the last year [facility] 250 DO Work Phone: Tobacco use status CPHS b) No [facility] 250 DO Work Phone: Basic Metabolic Panelon 12- Anion gap [Moles/Vol] 17 mmol/L Normal 12-20 [facility] Comment on above: Result Comment: Lyndsey wadsworthive 09/14/2019 reference range changed. Performed By: #### L IPD, CBCAD, HEP, TSH, VITD, BMP #### [facility] [address], [place] [id number] Calcium [Mass/Vol] 9.9 mg/dL Normal 8.6-10.2 [facility] Comment on above: Performed By: #### L IPD, CBCAD, HEP, TSH, VITD, BMP #### [facility] [address], [place] [id number] Chloride [Moles/Vol] 101 mmol/L Normal 98-107 [facility] Comment on above: Performed By: #### L IPD, CBCAD, HEP, TSH, VITD, BMP #### [facility] [address], [place] [id number] CO2 [Moles/Vol] 28 mmol/L Normal 20-31 [facility] Comment on above: Performed By: #### L IPD, CBCAD, HEP, TSH, VITD, BMP #### [facility] [address], [place] [id number] Creatinine [Mass/Vol] 0.9 mg/dL Normal 0.7-1.4 [facility] Comment on above: Performed By: #### L IPD, CBCAD, HEP, TSH, VITD, BMP #### [facility] [address], [place] [id number] eGFRAA 107 mL/min/1.73m2 Normal >60 [facility] Specialist Comment on above: Performed By: #### L IPD, CBCAD, HEP, TSH, VITD, BMP #### [facility] [address], [place] [id number] eGFRNAA 88 mL/min/1.73m2 Normal >60 [facility] Comment on above: Performed By: #### L IPD, CBCAD, HEP, TSH, VITD, BMP #### [facility] [address], [place] [id number] Glucose [Mass/Vol] 116 mg/dL High 65-99 [facility] [place] [facility] Assistant Comment on above: Result Comment: For FASTING Glucose --- ADA reference ranges: Normal 65-99 mg/dl Prediabetes 100-125 Diabetes >/= 126 Performed By: #### L IPD, CBCAD, HEP, TSH, VITD, BMP #### [facility] [address], [place] [id number] Potassium [Moles/Vol] 4.2 mmol/L Normal 3.5-5.5 [facility] Comment on above: Performed By: #### L IPD, CBCAD, HEP, TSH, VITD, BMP #### [facility] [address], [place] [id number] Sodium [Moles/Vol] 142 mmol/L Normal 135-146 Gamaliel cason [place] [facility] Assistant Comment on above: Performed By: #### L IPD, CBCAD, HEP, TSH, VITD, BMP #### [facility] [address], [place] [id number] Urea nitrogen [Mass/Vol] 11 mg/dL Normal 7-25 [facility] Comment on above: Performed By: #### L IPD, CBCAD, HEP, TSH, VITD, BMP #### [facility] [address], [place] [id number] Complete Blood Count with Au to Diffon 08-25-2021 Basophils (Bld) [#/Vol] 0.02 10*3/uL Normal 0.00-0.20 [facility] Comment on above: Performed By: #### L IPD, CBCAD, HEP, TSH, VITD, BMP #### [facility] [address], [place] [id number] Basophils/100 WBC (Bld) 0.4 % Normal [facility] Comment on above: Performed By: #### L IPD, CBCAD, HEP, TSH, VITD, BMP #### [facility] [address], [place] [id number] Eosinophils (Bld) [#/Vol] 0.16 10*3/uL Normal 0.02-0.50 [facility] Comment on above: Performed By: #### L IPD, CBCAD, HEP, TSH, VITD, BMP #### [facility] [address], [place] [id number] Eosinophils/100 WBC (Bld) 3.4 % Normal [facility] Comment on above: Performed By: #### L IPD, CBCAD, HEP, TSH, VITD, BMP #### [facility] [address], [place] [id number] Erythrocyte distribution width (RBC) [Ratio] 13.7 % Normal 11.0-15.0 [facility] Comment on above: Performed By: #### L IPD, CBCAD, HEP, TSH, VITD, BMP #### [facility] [address], [place] [id number] Hematocrit (Bld) [Volume fraction] 42.5 % Normal 38.5-50.0 [facility] Comment on above: Performed By: #### L IPD, CBCAD, HEP, TSH, VITD, BMP #### [facility] [address], [place] [id number] Hemoglobin (Bld) [Mass/Vol] 13.7 g/dL Normal 13.0-17.1 [facility] Comment on above: Performed By: #### L IPD, CBCAD, HEP, TSH, VITD, BMP #### [facility] [address], [place] [id number] Lymphocytes (Bld) [#/Vol] 1.1 10*3/uL Normal 0.9-3.9 [facility] Comment on above: Performed By: #### L IPD, CBCAD, HEP, TSH, VITD, BMP #### [facility] [address], [place] [id number] Lymphocytes/100 WBC (Bld) 23.9 % Normal [facility] Comment on above: Performed By: #### L IPD, CBCAD, HEP, TSH, VITD, BMP #### [facility] [address], [place] [id number] MCH (RBC) [Entitic mass] 27.5 pg Normal 27.0-33.0 [facility] Comment on above: Performed By: #### L IPD, CBCAD, HEP, TSH, VITD, BMP #### [facility] [address], [place] [id number] MCHC (RBC) [Mass/Vol] 32.2 g/dL Normal 32.0-36.0 [facility] Comment on above: Performed By: #### L IPD, CBCAD, HEP, TSH, VITD, BMP #### [facility] [address], [place] [id number] MCV (RBC) [Entitic vol] 85 fL Normal 80-100 [facility] Comment on above: Performed By: #### L IPD, CBCAD, HEP, TSH, VITD, BMP #### [facility] [address], [place] [id number] Monocytes (Bld) [#/Vol] 0.5 10*3/uL Normal 0.2-0.9 [facility] Comment on above: Performed By: #### L IPD, CBCAD, HEP, TSH, VITD, BMP #### [facility] [address], [place] [id number] Monocytes/100 WBC (Bld) 10.7 % Normal [facility] Comment on above: Performed By: #### L IPD, CBCAD, HEP, TSH, VITD, BMP #### [facility] [address], [place] [id number] Neutrophils (Bld) [#/Vol] 2.9 10*3/uL Normal 1.5-7.8 [facility] Comment on above: Performed By: #### L IPD, CBCAD, HEP, TSH, VITD, BMP #### [facility] [address], [place] [id number] Neutrophils/100 WBC (Bld) 61.2 % Normal [facility] Comment on above: Performed By: #### L IPD, CBCAD, HEP, TSH, VITD, BMP #### [facility] [address], [place] [id number] Platelet mean volume (Bld) [Entitic vol] 10.30 fL Normal 7.50-12.50 [facility] Comment on above: Performed By: #### L IPD, CBCAD, HEP, TSH, VITD, BMP #### [facility] [address], [place] [id number] Platelets (Bld) [#/Vol] 157 10*3/uL Normal 140-400 [facility] Comment on above: Performed By: #### L IPD, CBCAD, HEP, TSH, VITD, BMP #### [facility] [address], [place] [id number] RBC (Bld) [#/Vol] 4.98 10*6/uL Normal 4.20-5.80 [facility] Specialist Comment on above: Performed By: #### L IPD, CBCAD, HEP, TSH, VITD, BMP #### [facility] [address], [place] [id number] RDW-SD 42.2 fL Normal 37.0-50.0 [facility] Comment on above: Performed By: #### L IPD, CBCAD, HEP, TSH, VITD, BMP #### [facility] [address], [place] [id number] WBC (Bld) [#/Vol] 4.8 10*3/uL Normal 3.8-11.0 [facility]iel rn [place] [facility] Assistant Comment on above: Performed By: #### L IPD, CBCAD, HEP, TSH, VITD, BMP #### [facility] [address], [place] [id number] Hemoglobin A1Con 08-25-2021 EAG 208.73 Normal [facility] Comment on above: Performed By: #### A 1C #### [facility] [address], [place] [id number] HbA1c (Bld) [Mass fraction] 8.9 % High 4.0-6.0 [facility] Comment on above: Performed By: #### A 1C #### [facility] [address], [place] [id number] Hepatic Function Panelon Albumin [Mass/Vol] 4.7 g/dL Normal 3.6-5.1 [facility] Assistant Comment on above: Performed By: #### L IPD, CBCAD, HEP, TSH, VITD, BMP #### [facility] [address], [place] [id number] Albumin/Globulin [Mass ratio] 2.2 {ratio} Normal 1.0-2.5 [facility] Comment on above: Performed By: #### L IPD, CBCAD, HEP, TSH, VITD, BMP #### [facility] [address], [place] [id number] ALP [Catalytic activity/Vol] 60 U/L Normal 40-129 [facility] Comment on above: Performed By: #### L IPD, CBCAD, HEP, TSH, VITD, BMP #### [facility] [address], [place] [id number] ALT [Catalytic activity/Vol] 20 U/L Normal 9-46 [facility] Comment on above: Result Comment: 08/09 Female reference range changed. Performed By: #### L IPD, CBCAD, HEP, TSH, VITD, BMP #### [facility] [address], [place] [id number] AST [Catalytic activity/Vol] 24 U/L Normal 10-40 [facility] Comment on above: Performed By: #### L IPD, CBCAD, HEP, TSH, VITD, BMP #### [facility] [address], [place] [id number] Bilirubin [Mass/Vol] 0.48 mg/dL Normal 0.30-1.20 [facility] Comment on above: Performed By: #### L IPD, CBCAD, HEP, TSH, VITD, BMP #### [facility] [address], [place] [id number] DBIL <0.2 Normal [facility] Comment on above: Result Comment: Refe rence range change 07/26/2017. Prior reference range 0.1-0.3 mg/dL. Performed By: #### L IPD, CBCAD, HEP, TSH, VITD, BMP #### [facility] [address], [place] [id number] Globulin (S) [Mass/Vol] 2.1 g/dL Normal 1.9-3.7 [facility] Comment on above: Performed By: #### L IPD, CBCAD, HEP, TSH, VITD, BMP #### [facility] [address], [place] [id number] Protein [Mass/Vol] 6.8 g/dL Normal 6.1-8.1 [facility] Comment on above: Performed By: #### L IPD, CBCAD, HEP, TSH, VITD, BMP #### [facility] [address], [place] [id number] Lipid Panelon 08-25-2021 Cholesterol [Mass/Vol] 172 mg/dL Normal 125-200 [facility] Comment on above: Result Comment: Low risk < 200mg/dL Borderline risk 201-239 mg/dl High risk > or equal to 240 Performed By: #### L IPD, CBCAD, HEP, TSH, VITD, BMP #### [facility] [address], [place] [id number] Cholesterol in HDL [Mass/Vol] 47 mg/dL Normal >40 [facility] Comment on above: Result Comment: High Cardiovascular Risk HDL <40 mg/dL Low Cardiovascular Risk HDL > or equal to 60 mg/dl Performed By: #### L IPD, CBCAD, HEP, TSH, VITD, BMP #### [facility] [address], [place] [id number] Cholesterol in LDL [Mass/Vol] 79 mg/dL Normal [facility] Comment on above: Result Comment: LDL ATP III CLASSIFICATION LDL less than 100 mg/dl Optimal LDL 100-129 mg/dl Near or above optimal LDL 130-159 Borderline high LDL 160-189 High LDL greater than 189 mg/dl Very High Performed By: #### L IPD, CBCAD, HEP, TSH, VITD, BMP #### [facility] [address], [place] [id number] Cholesterol in VLDL [Mass/Vol] 46 mg/dL Normal [facility] Comment on above: Performed By: #### L IPD, CBCAD, HEP, TSH, VITD, BMP #### [facility] [address], [place] [id number] Cholesterol.total/C holesterol in HDL [Mass ratio] 4 {ratio} Normal [facility] Comment on above: Performed By: #### L IPD, CBCAD, HEP, TSH, VITD, BMP #### [facility] [address], [place] [id number] Triglyceride [Mass/Vol] 231 mg/dL High 30-150 [facility] Comment on above: Result Comment: TRIG ATPIII CLASSIFICATIONS TRIG less than 150 mg/dl Normal TRIG 150-199 mg/dl Borderline High TRIG 200-500 mg/dl High TRIG greather than 500 mg/dl Very High Performed By: #### L IPD, CBCAD, HEP, TSH, VITD, BMP #### [facility] [address], [place] [id number] Prostatic Specific Antigen, Totalon 08-25-2021 TPSA 1.270 ng/mL Normal <4.000 [facility] Comment on above: Result Comment: PSA Test Method: ECLIA/Alda e 601 Performed By: #### P SA #### [facility] [address], [place] [id number] TSHon 08-25-2021 TSH 1.520 uIU/mL Normal 0.400-4.500 [facility] Specialist Comment on above: Performed By: #### L IPD, CBCAD, HEP, TSH, VITD, BMP #### [facility] [address], [place] [id number] Vitamin D 25-OHon 08-25-2021 VIT D 25 OH 22 ng/ml Low >29 [facility] Comment on above: Result Comment: Anayeli min D Status Deficiency <20 ng/mL Insufficiency 20-29 ng/mL Optimal 30-100 ng/mL Possible Toxicity >=150 ng/mL Performed By: #### L IPD, CBCAD, HEP, TSH, VITD, BMP #### [facility] [address], [place] [id number] Echocardiogramon 05-03-[address], [address], [place] [address] TRANSTHORACIC ECHOCARDIOGRAM REPORT Patient Name: ELSA Evangelina Physician: [id number] Leo ESPINOZA MD Study Date: 05/03/2021 Referring [id number] LEO CHAVARRIA Physician: MRN/PID: [id number] PCP: Nikunj Mari Accession/Order#: [id number] Department [facility] Location: Date of : 1955 Fellow: Gender: M Nurse: Admit Date: Lawn Specialist: Jamila Obrien [address], [facility] Height: 180.34 cm CC Report to: Weight: 84.82 kg Study Type: Echocardiogram BSA: 2.05 m2 Blood Pressure: 156 /80 mmHg Diagnosis/ICD: I35.0-Nonrheumatic aortic (valve) stenosis Indication: CAD, Diabetes, HTN, Hyperlipidemia, [place] and PTCA-2017, CABG Procedure/CPT: Echo Complete w Full [id number] Study Detail: The following Echo studies were [...] 0.6 m/s (0.6-0.9m/s) PV Max P.6 mmHg [id number] Leo Graves MD Electronically signed on 05/04/2021 at 6:20:39 PM Final Normal [facility] 04-18-2021 ALT [Catalytic activity/Vol] 24 U/L Normal 9-46 [facility] Comment on above: Result Comment: NO C OLLECTION DATE RECEIVED. WE HAVE USED THE DATE THE SPECIMEN WAS RECEIVED BY THIS LABORATORY THE COLLECTION DATE. IF THIS IS INCORRECT, PLEASE CONTACT CLIENT SERVICES. PHONE NUMBER: [phone] Performed By: #### 2 36, 908, [id number] #### [facility] [place] [id number] Clinical Quality Analyst: Ck Jarvis MD [place] 04-18-2021 AST [Catalytic activity/Vol] 26 U/L Normal 10-35 [facility] Comment on above: Performed By: #### 8 10, 957, [id number] #### [facility] [address] Clinical Quality Analyst: Ck Jarvis MD LIPID PANEL WITH REFLEX TO D IRECT LDLon 04-18-2021 Cholesterol [Mass/Vol] 151 mg/dL Normal <200 [facility] Comment on above: Order Comment: FASTI NG: UNKNOWN Performed By: #### 8 55, 482, 83826 #### [facility] [place] [address] Clinical Quality Analyst: Ck Jarvis MD Cholesterol in HDL [Mass/Vol] 40 mg/dL Normal > OR = 40 [facility] Comment on above: Order Comment: FASTI NG: UNKNOWN Performed By: #### 8 , 82, 25224 #### [facility] [place] [address] Clinical Quality Analyst: Ck Jarvis MD Cholesterol in LDL [Mass/Vol] [...] LDL-C. Ramy HERNANDEZ et al. GENIA. 2013;310(19): 0809-7929 (http://[email or web address]/faq/[email or web address]) Performed By: #### 8 , 82, 82644 #### [facility] [place] [address] Clinical Quality Analyst: Ck Jarvis MD Cholesterol.total/C holesterol in HDL [Mass ratio] 3.8 {ratio} Normal <5.0 [facility] Comment on above: Order Comment: FASTI NG: UNKNOWN Performed By: #### 8 , 82, 56485 #### [facility] [place] [address] Clinical Quality Analyst: Ck Jarvis MD NON HDL CHOLESTEROL 111 mg/dL (calc) Normal <130 [facility] Comment on above: Order Comment: FASTI NG: UNKNOWN Result Comment: For patients with diabetes plus 1 major ASCVD risk factor, treating to a non-HDL-C goal of <100 mg/dL (LDL-C of <70 mg/dL) is considered a therapeutic option. Performed By: #### 8 , 822, 24429 #### [facility] [address], [address] [place] [address] Clinical Quality Analyst: Ck Jarvis MD Triglyceride [Mass/Vol] 216 mg/dL High <150 [facility] Comment on above: Order Comment: FASTI NG: UNKNOWN Result Comment: If a non-fasting specimen was collected, consider repeat triglyceride testing on a fasting specimen if clinically indicated. Yumiko et al. J. of Clin. Lipidol. 2015;9:129-169. Performed By: #### 8 23, 822, 21188 #### [facility] [address], [address] [place] [address] Clinical Quality Analyst: Ck Jarvis MD RENALon 03-20-[address] [facility] Department of Radiology [address] [place] [id number] Patient Name: ELSA ESPINOZA : 1955 Sex: M Age: Race: White Pt. Location: Count includes the [facility] Patient Status: D Ordered Date: 03/01/2021 9:55:00 AM Completed Date: 03/20/2021 04:00 PM Requesting Provider: PERICO ADAM Attending Provider: PERICO ADAM Report Copy To: Signs & Symptoms: N13.30 Unspecified hydronephrosis I10 History: [place] [facility] [place] [id number] / per cigna/ passed med nec *er [...] redemonstrated. Electronically signed: Cristal Fernandes. Transcribed by: [email or web address], User Resident: Electronically Signed by: CRISTAL FERNANDES @ 03/21/2021 06:[address] [facility] *URINE CULTUREon 02-07-2021 *URINE CULTURE Clinical Report: (D) Specimen/Source: URINE/CLEAN VOID URINE Collected: 02/07/2021 20:35 Status: Final Last Updated: 02/10/2021 08:00 CULT RES (Final) <10,000 Cfu/Ml No Significant Growth Normal [facility] Comment on above: Performed By: #### 3 0339 #### [facility] [address] [place] [address], [facility] BASIC METABOLIC PANELon 06-0 Calcium [Mass/Vol] 9.4 mg/dL Normal 8.6-10.[address] [facility] Comment on above: Performed By: #### 0 0071 #### [facility] [address] [place] [address], [facility] Chloride [Moles/Vol] 96 mmol/L Low 98-[address] [facility] Comment on above: Performed By: #### 0 0071 #### [facility] [address] [place] [address], [facility] CO2 [Moles/Vol] 28 mmol/L Normal 21-[address] [facility] Comment on above: Performed By: #### 0 0071 #### [facility] [address] [place] [address], [facility] Creatinine [Mass/Vol] 0.87 mg/dL Normal 0.70-1.[address] [facility] Comment on above: Performed By: #### 0 0071 #### [facility] [address] [facility] [place] [address], [facility] GFR/1.73 sq M.predicted among blacks MDRD (S/P/Bld) [Vol rate/Area] mL/min/{1.73_m2} Normal >[address] [facility] Comment on above: Performed By: #### 0 0071 #### [facility] [address] [facility] [address], [facility] GFR/1.73 sq M.predicted among non-blacks MDRD (S/P/Bld) [Vol rate/Area] mL/min/{1.73_m2} Normal >[address] [facility] Comment on above: Performed By: #### 0 0071 #### [facility] [address] [place] [address], [facility] Glucose [Mass/Vol] 220 mg/dL High 70-[address] [facility] Comment on above: Performed By: #### 0 0071 #### [facility] [address] [place] [address], [facility] Potassium [Moles/Vol] 4.1 mmol/L Normal 3.5-5.[address] [facility] Comment on above: Performed By: #### 0 0071 #### [facility] [address] Sodium [Moles/Vol] 135 mmol/L Low 136-[address] [facility] Comment on above: Performed By: #### 0 0071 #### [facility] [address] Urea nitrogen [Mass/Vol] 9 mg/dL Normal 7-[address] [facility] Comment on above: Performed By: #### 0 0071 #### [facility] [address] CBC W/DIFFon 02-07-2021 ABS IMM GRANS 0.0 10*3/uL Normal 0.0-0.[address] [facility] Comment on above: Performed By: #### 5 3 #### [facility] [address] ABS NEUTROPHILS 3.1 10*3/uL Normal 1.6-7.[address] [facility] Comment on above: Performed By: #### 5 102 #### [facility] [address] Basophils (Bld) [#/Vol] 0.0 10*3/uL Normal 0.0-0.[address] [facility] Comment on above: Performed By: #### 5 102 #### [facility] [address] Basophils/100 WBC (Bld) 0.4 % Normal 0.0-1.[address] [facility] Comment on above: Performed By: #### 5 102 #### [facility] [address] [place] [address], [facility] Eosinophils (Bld) [#/Vol] 0.1 10*3/uL Normal 0.0-0.[address] [facility] Comment on above: Performed By: #### 5 102 #### [facility] [address] [place] [address], [facility] Eosinophils/100 WBC (Bld) 2.2 % Normal 0.0-6.[address] [facility] Comment on above: Performed By: #### 5 0103 #### [facility] [address] [facility]. [address] Erythrocyte distribution width (RBC) [Ratio] 15.0 % Normal 11.5-15.[address] [facility] Comment on above: Performed By: #### 5 0103 #### [facility] [address] [facility]. [address] Hematocrit (Bld) [Volume fraction] 40.2 % Normal 39.0-50.[address] [facility] Comment on above: Performed By: #### 5 0103 #### [facility] [address] [facility]. [address] Hemoglobin (Bld) [Mass/Vol] 13.0 g/dL Normal 13.0-17.[address] [facility] Comment on above: Performed By: #### 5 0103 #### [facility] [address] IMMATURE GRANS 0.4 % Normal 0.0-1.[address] [facility] Comment on above: Performed By: #### 5 0103 #### [facility] [address] [facility] [place] [address], [facility] Lymphocytes (Bld) [#/Vol] 0.9 10*3/uL Low 1.2-4.[address] [facility] Comment on above: Performed By: #### 5 0103 #### [facility] [address] [place] [address], [facility] Lymphocytes/100 WBC (Bld) 19.9 % Low 20.0-45.[address] [facility] Comment on above: Performed By: #### 5 3 #### [facility] [address] [facility] [place] [address], [facility] MCH (RBC) [Entitic mass] 25.9 pg Low 27.0-33.[address] [facility] Comment on above: Performed By: #### 5 0103 #### [facility] [address] [place] [address], [facility] MCHC (RBC) [Mass/Vol] 32.3 g/dL Normal 32.0-35.[address] [facility] Comment on above: Performed By: #### 0103 #### [facility] [address] [place] [address], [facility] MCV (RBC) [Entitic vol] 80.2 fL Low 82.0-98.[address] [facility] Comment on above: Performed By: #### 102 #### [facility] [address] [place] [address], [facility] Monocytes (Bld) [#/Vol] 0.5 10*3/uL Normal 0.1-1.[address] [facility] Comment on above: Performed By: #### 5 102 #### [facility] [address] [place] [address], [facility] MONOS 10.3 % Normal 5.0-12.[address] [facility] Comment on above: Performed By: #### 5 102 #### [facility] [address] [place] [address], [facility] Neutrophils/100 WBC (Bld) 66.8 % Normal 40.0-72.[address] [facility] Comment on above: Performed By: #### 102 #### [facility] [address] [place] [address], [facility] Nucleated RBC/100 WBC (Bld) [Ratio] 0 % Normal 0-[address] [facility] Comment on above: Performed By: #### 102 #### [facility] [address] [facility] [place] [address], [facility] PLAT CNT 147 10*3/uL Low 150-[address] [facility] Comment on above: Performed By: #### 5 0103 #### [facility] [address] [facility] [place] [address], [facility] RBC (Bld) [#/Vol] 5.01 10*6/uL Normal 4.20-5.[address] [facility] Comment on above: Performed By: #### 5 0103 #### [facility] [address] [facility] [place] [address], [facility] WBC (Bld) [#/Vol] 4.58 10*3/uL Normal 4.00-10.[address] [facility] Comment on above: Performed By: #### 5 0103 #### [facility] [address] [place] [address], [facility] CT ABDOMEN AND PELVIS WO CON TRASTon 02-07-2021 CT ABDOMEN AND PELVIS WO CONTRAST [facility] Department of Radiology [address] [place] [id number] Patient Name: ELSA ESPINOZA : 1955 Sex: M Age: Race: White Pt. Location: [facility] Patient Status: E Ordered Date: 02/07/2021 9:25:00 [...] nephrolithiasis. Electronically signed: Shauna Green. Transcribed by: [email or web address], User Resident: Electronically Signed by: SHAUNA GREEN @ 02/07/2021 10:[address] [facility] Comment on above: Order Comment: Renal Stones URINALYSIS REFLEXon 02-08-20 21 Appearance (U) CLOUDY Abnormal CLEAR [facility] Comment on above: Order Comment: Crite farhan for reflexing a culture was not met. Please call the lab at [phone] within 24 hours of collection time if culture is needed Performed By: #### 3 0965 #### [address] [place] [place] [address], [facility] Bilirubin Ql (U) Negative Normal NEGATIVE [facility] Comment on above: Order Comment: Crite farhan for reflexing a culture was not met. Please call the lab at [phone] within 24 hours of collection time if culture is needed Performed By: #### 3 0965 #### [facility] [address] [facility] [place] [address], [facility] Color (U) MARA Abnormal YELLOW [facility] Comment on above: Order Comment: Crite farhan for reflexing a culture was not met. Please call the lab at [phone] within 24 hours of collection time if culture is needed Performed By: #### 3 0965 #### [facility] [address] [facility] [place] [address], [facility] EPIS NONE SEEN Normal FEW,OCC,NON E SEEN [facility] Comment on above: Order Comment: Crite farhan for reflexing a culture was not met. Please call the lab at [phone] within 24 hours of collection time if culture is needed Performed By: #### 3 0965 #### [facility] [address] [facility] [place] [address], [facility] Glucose Ql (U) >=[address] [facility] Comment on above: Order Comment: Crite farhan for reflexing a culture was not met. Please call the lab at [phone] within 24 hours of collection time if culture is needed Performed By: #### 3 0965 #### [facility] [address] [facility] [place] [address], [facility] Hemoglobin Ql (U) LARGE Abnormal NEGATIVE [facility] Comment on above: Order Comment: Crite farhan for reflexing a culture was not met. Please call the lab at [phone] within 24 hours of collection time if culture is needed Performed By: #### 3 0965 #### [facility] [address] [facility] [place] [address], [facility] KETONE Negative Normal NEGATIVE [facility] Comment on above: Order Comment: Crite farhan for reflexing a culture was not met. Please call the lab at [phone] within 24 hours of collection time if culture is needed Performed By: #### 3 0965 #### [facility] [address] [facility] [place] [address], [facility] LEUK SUSU Negative Normal NEGATIVE [facility] Comment on above: Order Comment: Crite farhan for reflexing a culture was not met. Please call the lab at [phone] within 24 hours of collection time if culture is needed Performed By: #### 3 0965 #### [facility] [address] [facility] [place] [address], [facility] Nitrite Ql (U) Negative Normal NEGATIVE [facility] Comment on above: Order Comment: Crite farhan for reflexing a culture was not met. Please call the lab at [phone] within 24 hours of collection time if culture is needed Performed By: #### 3 0965 #### [place] [address], [facility] pH (U) 7.0 [pH] Normal 5.0-8.[address] [facility] Comment on above: Order Comment: Crite farhan for reflexing a culture was not met. Please call the lab at [phone] within 24 hours of collection time if culture is needed Performed By: #### 3 0965 #### [facility] [address] [facility] [place] [address], [facility] Protein Ql (U) 30 mg/dL Abnormal NEGATIVE [facility] Comment on above: Order Comment: Crite farhan for reflexing a culture was not met. Please call the lab at [phone] within 24 hours of collection time if culture is needed Performed By: #### 3 0965 #### [facility] [address] [facility] [place] [address], [facility] RBC (U) [#/Vol] /uL Abnormal NONE SEEN [facility] Comment on above: Order Comment: Crite farhan for reflexing a culture was not met. Please call the lab at [phone] within 24 hours of collection time if culture is needed Performed By: #### 3 0965 #### [facility] [address] [place] [address], [facility] SPEC GRAV 1.023 High 1.015-1.[address] [facility] Comment on above: Order Comment: Crite farhan for reflexing a culture was not met. Please call the lab at [phone] within 24 hours of collection time if culture is needed Performed By: #### 3 0965 #### [facility] [address] [place] [address], [facility] WBC UA NONE SEEN Normal NONE SEEN [facility] Comment on above: Order Comment: Crite farhan for reflexing a culture was not met. Please call the lab at [phone] within 24 hours of collection time if culture is needed Performed By: #### 3 0965 #### [facility] [address] [facility] [place] [address], [facility] *ENTERIC BACTERIAL DNA PANEL on 12-18-2020 *ENTERIC BACTERIAL DNA PANEL Clinical Report: (D) Specimen: STOOL Collected: 12/18/2020 11:45 Status: Final Last Updated: 12/19/2020 13:34 Shigella (Final) Negative Campy (Final) Negative Vibrio (Final) Negative ETEC (Final) Negative ShigaTox (Final) Negative SALM (Final) Negative Plesiom (Final) Negative Yersinia (Final) Negative Normal [facility] Comment on above: Performed By: #### 3 1598 #### [facility] [address] [facility] [place] [address], [facility] BASIC METABOLIC PANELon 12-08 Calcium [Mass/Vol] 8.5 mg/dL Low 8.6-10.[address] [facility] Comment on above: Order Comment: No: D o not add to previous draw Performed By: #### 1 69, 36483 #### [facility] [address] [place] [address], [place] Chloride [Moles/Vol] 102 mmol/L Normal 98-[address] [facility] Comment on above: Order Comment: No: D o not add to previous draw Performed By: #### 1 69, [address]07[address] #### [facility] [address] [place] [address], [place] CO2 [Moles/Vol] 29 mmol/L Normal 21-[address] [facility] Comment on above: Order Comment: No: D o not add to previous draw Performed By: #### 1 69, 83180 #### [facility] [address] [place] [address], [place] Creatinine [Mass/Vol] 1.01 mg/dL Normal 0.70-1.[address] [facility] Comment on above: Order Comment: No: D o not add to previous draw Performed By: #### 1 69, 92418 #### [facility] [address] [place] [address], [place] GFR/1.73 sq M.predicted among blacks MDRD (S/P/Bld) [Vol rate/Area] mL/min/{1.73_m2} Normal >[address] [facility] Comment on above: Order Comment: No: D o not add to previous draw Performed By: #### 1 69, 61090 #### [facility] [address] [place] [address], [place] GFR/1.73 sq M.predicted among non-blacks MDRD (S/P/Bld) [Vol rate/Area] mL/min/{1.73_m2} Normal >[address] [facility] Comment on above: Order Comment: No: D o not add to previous draw Performed By: #### 1 69, 89887 #### [facility] [address] [place] [address], [place] Glucose [Mass/Vol] 168 mg/dL High 70-[address] [facility] Comment on above: Order Comment: No: D o not add to previous draw Performed By: #### 1 69, 41833 #### [facility] [address] [place] [address], [place] Potassium [Moles/Vol] 3.8 mmol/L Normal 3.5-5.[address] [facility] Comment on above: Order Comment: No: D o not add to previous draw Performed By: #### 1 69, 22388 #### [facility] [address] [place] [address], [facility] Sodium [Moles/Vol] 140 mmol/L Normal 136-[address] [facility] Comment on above: Order Comment: No: D o not add to previous draw Performed By: #### 1 69, 69163 #### [facility] [address] [place] [address], [facility] Urea nitrogen [Mass/Vol] 19 mg/dL Normal 7-[address] [facility] Comment on above: Order Comment: No: D o not add to previous draw Performed By: #### 1 69, 46085 #### [facility] [address] [place] [address], [facility] CBC COMPLETE BLOOD COUNTon 0 - Erythrocyte distribution width (RBC) [Ratio] 15.0 % Normal 11.5-15.[address] [facility] Comment on above: Order Comment: No: D o not add to previous draw Performed By: #### 5 0608 #### [facility] [address] [place] [address], [facility] Hematocrit (Bld) [Volume fraction] 40.8 % Normal 39.0-50.[address] [facility] Comment on above: Order Comment: No: D o not add to previous draw Performed By: #### 5 0608 #### [facility] [address] [place] [address], [facility] Hemoglobin (Bld) [Mass/Vol] 12.7 g/dL Low 13.0-17.[address] [facility] Comment on above: Order Comment: No: D o not add to previous draw Performed By: #### 5 0608 #### [facility] [address] [place] [address], [facility] MCH (RBC) [Entitic mass] 25.4 pg Low 27.0-33.[address] [facility] Comment on above: Order Comment: No: D o not add to previous draw Performed By: #### 5 0608 #### [facility] [address] [place] [address], [facility] MCHC (RBC) [Mass/Vol] 31.1 g/dL Low 32.0-35.[address] [facility] Comment on above: Order Comment: No: D o not add to previous draw Performed By: #### 5 0608 #### [facility] [address] [place] [address], [facility] MCV (RBC) [Entitic vol] 81.6 fL Low 82.0-98.[address] [facility] Comment on above: Order Comment: No: D o not add to previous draw Performed By: #### 5 0608 #### [facility] [address] [facility] [place] [address], [facility] Nucleated RBC/100 WBC (Bld) [Ratio] 0 % Normal 0-[address] [facility] Comment on above: Order Comment: No: D o not add to previous draw Performed By: #### 5 0608 #### [facility] [address] [place] [address], [facility] PLAT CNT 130 10*3/uL Low 150-[address] [facility] Comment on above: Order Comment: No: D o not add to previous draw Performed By: #### 5 0608 #### [facility] [address] [facility] [place] [id number], [facility] RBC (Bld) [#/Vol] 5.00 10*6/uL Normal 4.20-5.[address] [facility] Comment on above: Order Comment: No: D o not add to previous draw Performed By: #### 5 0608 #### [facility] [address] [place] [id number], [facility] WBC (Bld) [#/Vol] 4.18 10*3/uL Normal 4.00-10.[address] [facility] Comment on above: Order Comment: No: D o not add to previous draw Performed By: #### 5 0608 #### [facility] [address] [facility] [place] [address], [facility] MAGNESIUM BLOODon 12-18-2020 Magnesium [Mass/Vol] 1.8 mg/dL Low 1.9-2.[address] [facility] Comment on above: Order Comment: No: D o not add to previous draw Performed By: #### 1 0070, [id number] #### [facility] [address] [facility] POC GLUCOSE EDon 12-18-2020 Glucose [Mass/Vol] 174 mg/dL High 70-[address] [facility] Comment on above: Performed By: #### 0 0071 #### [facility] [address] [facility] [place] [address], [facility] Glucose [Mass/Vol] 134 mg/dL High 70-[address] [facility] Comment on above: Performed By: #### 0 0071 #### [facility] [address] [facility]. [address] POC SARS COV2 ANTIGEN NEGATI VEon 12-17-2020 POC SARS COV2 ANTIGEN NEG Negative Normal NEGATIVE [facility] Comment on above: Result Comment: Nega tive [...] Accreditation. Performed By: #### 3 1944 #### [facility] [place] [address], [facility] HOSPon 06-19-2017 HOSP Office Visit OPHT (OPTMAN) ELSA ESPINOZA ([id number]) 1955 [facility] Time Provider [id number]/11/17 1:00 PM JATIN RICHMOND II During your [...] AssessedReason for Visit: Vision Loss [2068] Cmt: [place] Disability Exam Diabetes [34]Reason For Visit History [...] Presbyopia [H52.4]Order(s):VISUAL FIELD 30-2 OU (BOTH EYES) [7165816] Order #: [id number]: 1 VISUAL FIELD WRIGHT OU (BOTH EYES) [[id number]] Order #: [id number]: 1 OCT OPTIC NERVE CIRRUS OU (BOTH EYES) [[id number]] Order #: [id number]: 1Prescriptions as of 06/19/2017 Sig: ATORVASTATIN 10 [...] JATIN RICHMOND II OD on 06/19/17 Normal [facility] PROGRESSon 06-19-2017 PROGRESS HNO ID: [id number] thor: Jatin Richmond IIService: (none)Author Type: OPTOMETRISTType: [...] and treatment options.Jatin Richmond, II, OD Normal [facility] Vital Signs Date Time Vital Sign Value Performing Clinician Facility 11-06-2023 10:45-0500 Body height 180.3 cm Leo Chavarria DO Work Phone: [facility] 11-06-2023 10:45-0500 Body mass index (BMI) [Ratio] 25.52 kg/m2 Leo Chavarria DO Work Phone: [facility] 11-06-2023 10:45-0500 Body weight 83.01 kg Leo Chavarria DO Work Phone: [facility] 11-06-2023 10:45-0500 Diastolic blood pressure 94 mm[Hg] Leo Chavarria DO Work Phone: [facility] 11-06-2023 10:45-0500 Heart rate 78 /min Leo Chavarria DO Work Phone: [facility] 11-06-2023 10:45-0500 Systolic blood pressure 160 mm[Hg] Leo Chavarria DO Work Phone: [facility] 11-06-2021 07:30-0500 58 1 Nikunj A Naderer Work Phone: [facility] Work Phone: Comment on above: [id number] 10-11-2021 09:12-0500 Body height 180.34 cm Nikunj Fuentes Naderer Work Phone: [facility] [address] DO Work Phone: 10-11-2021 09:12-0500 Body mass index (BMI) [Ratio] 25.38 kg/m2 Nikunj Fuentes Naderer Work Phone: [facility] [facility] DO Work Phone: 10-11-2021 09:12-0500 Body surface area Derived from formula 2.03 m2 Nikunj Fuentes Naderer Work Phone: [facility] [facility] DO Work Phone: 10-11-2021 09:12-0500 Body weight 82.56 kg Nikunj Fuentes Naderer Work Phone: [facility] [facility] DO Work Phone: 10-11-2021 09:12-0500 Diastolic blood pressure 74 mm[Hg] Nikunj Fuentes Naderer Work Phone: [facility] [facility] DO Work Phone: 10-11-2021 09:12-0500 Heart rate 65 /min Nikunj Fuentes Naderer Work Phone: [facility] [facility] DO Work Phone: 10-11-2021 09:12-0500 Systolic blood pressure 134 mm[Hg] Nikunj A Naderer Work Phone: [facility] [facility] DO Work Phone: Encounters Encounter Date Encounter Type Care Provider Facility Start: 11-18-2023 End: 11-18-2023 ambulatory Fred Chao Facility:[facility] Start: 11-06-2023 End: 11-06-2023 ambulatory [facility] Start: 11-06-2023 End: 11-06-2023 Office outpatient visit 25 minutes Leo Niyah Deon DO Work Phone: [facility] Comment on above: Echocardiogram abnor mal; Essential hypertension; Atherosclerosis of coronary artery bypass graft of [place] heart without angina pectoris; History of PTCA; Mixed hyperlipidemia; S/P CABG (coronary artery bypass graft); Small bowel obstruction ([facility] BMI 25.0-25.9,adult; Type 2 diabetes mellitus without complication, without long-term current use of insulin ([facility]) Start: 10-21-2023 End: 10-21-2023 ambulatory NISH POLLACK Not Available Start: 10-21-2023 End: 10-21-2023 Office outpatient new 30 minutes Nish Pollack BLADE CHANGER-COMMUNITY SPORTS COORDINATOR Work Phone: [facility] Comment on above: Seborrheic keratosis ; Lentigines; Nevus; Actinic keratosis; Common wart; Inflamed seborrheic keratosis Start: 01-08-2023 ambulatory Marta ZUULAGA Facility:[facility]anc[facility] Start: 01-04-2023 End: 01-05-2023 ambulatory Marta ZULUAGA Facility:CD:[id number] Start: 01-04-2023 End: 01-05-2023 Evaluation and management of inpatient SHAIKH Lincoln ABEL Facility:[facility] Start: 11-03-2022 End: 11-04-[address] MONTY OCONNELL . Facility:[facility] Start: 08-27-2022 Rx Renewal Nikunj Mari Work Phone: [facility] 250 DO Work Phone: Start: 08-19-2022 [facility] Start: 08-18-2022 End: 08-20-2022 [facility] Start: 08-18-2022 End: 08-18-[address] NIKUNJ MARI Facility:[facility] Start: 11-20-2021 Chart Update Nikunj A Naderer Work Phone: [facility] [facility] DO Work Phone: Start: 11-15-[address] [facility], Provider: Leo Chavarria, Status: Pen, Time: 1:00 PM Nikunj Fuentes Naderer Work Phone: [facility] [facility] DO Work Phone: Start: 11-09-2021 Telephone encounter Nikunj Fuentes Nad erer Work Phone: [facility] [facility] DO Work Phone: Start: 11-06-2021 Chart Update Nikunj Fuentes Naderer Work Phone: [facility] [facility] DO Work Phone: Start: 11-06-2021 Patient encounter procedure Nikunj Fuentes Naderer Work Phone: [facility] Work Phone: Start: 10-25-2021 AUDIT Nikunj A Naderer Work Phone: [facility] [facility] DO Work Phone: Start: 03-20-2021 End: 03-21-2021 ambulatory AHMED EL-LEOPOLDOWAHRY Facility:[facility] Start: 03-09-2021 End: 04-03-2021 [facility] Start: 02-07-2021 End: 02-08-2021 Emergency department patient visit ESE KELLER Facility:[facility] Start: 12-17-2020 End: 12-18-2020 Evaluation and management of inpatient SILASJESSICA SALAZAR Facility:[facility] Start: 09-12-2017 End: 09-13-2017 [facility] Start: 06-19-2017 End: 06-20-2017 Ambulatory [facility] Procedures Date Procedure Procedure Detail Performing Clinician Start: 11-06-2023 Lipid panel LEO DUMONT Start: 11-04-2023 History of coronary artery bypass grafting S/P CABG (coronary artery bypass graft) Leo Deon WATTS Work Phone: Start: 11-04-2023 History of percutane ous transluminal coronary angioplasty History of PTCA Leo Rolonelie WATTS Work Phone: Start: 10-21-2023 End: 10-21-2023 CRYOTHERAPY SKIN LESION Nish Pollack BLADE CHANGER-COMMUNITY SPORTS COORDINATOR Work Phone: Appendectomy Nikunj Fuentes Naderer Work Phone: Cardiac catheterization Nikunj Alfredo Naderer Work Phone: Cholecystectomy Nikunj Daleyer er Work Phone: Colonoscopy Nikunj Alfredo Naderer Work Phone: Comment on above: [id number] Mary Rodriguez kes; Coronary artery bypa ss [...] [address] [place] [id number] Nish Pollack APRN-COMMUNITY SPORTS COORDINATOR [address] [place] [address] [facility] Start: 10-22-2024 End: 10-22-2024 Patient encounter procedure 10/22/2024 9:10 AM EST Office Visit [facility] [address] [place] [address] [address] [place] [phone] Leo Chavarria, DO [address] [facility] [address] [place] [address] [facility] Start: 01-09-2024 End: 01-09-2024 Clinical Support 01/09/2024 8:30 AM EDT Clinical Support [address] [address] [facility] Start: 01-08-2024 End: 01-08-2024 Patient encounter procedure 01/08/2024 7:00 AM EDT Office Visit [facility] [address] [place] [id number] Nikunj Mari MD [address] [place] [address] [facility] Start: 11-06-2023 End: 11-06-2024 Lipid 1996 panel - Serum or Plasma Lipid Panel Lab Routine Mixed hyperlipidemia Expected: 11/06/2023 (Approximate), Expires: 11/06/2024 [facility] Work Phone: Comment on above: Expected: 11/06/2023 (Approximate), Expires: 11/06/2024 Start: 05-10-2023 Influenza vaccination Influenza Vacc ine (#1) [facility] Start: 04-04-2022 FUV, Provider: Leo Chavarria, Status: Pen, Time: 9:00 AM FUV, Provider: Leo Chavarria, Status: Pen, Time: 9:00 AM [facility] [facility] DO Work Phone: Start: 11-23-2021 Hemoglobin A1c measurement Diabetes: Hemoglobin A1C [facility] Start: 11-13-2021 FUV, Provider: Leo Chavarria, Status: Pen, Time: 10:20 AM FUV, Provider: Leo Chavarria, Status: Pen, Time: 10:20 AM [facility] [place] [facility] DO Work Phone: Start: 11-06-2021 STRESS NUC, Provider : [place] CAMPOSI NUCLEAR 01,[id number], Status: Pen, Time: 7:30 AM STRESS NUC, Provider: [place] HHVI NUCLEAR 01,[id number], Status: Pen, Time: 7:30 AM [facility] [place] [facility] DO Work Phone: Start: 11-16-2018 Screening for malign ant neoplasm of colon [facility] Start: 09-09-2014 Pneumococcal Vaccine : 65+ Years (2 - PCV) Pneumococcal Vaccine: 65+ Years (2 - PCV) [facility] Start: 2006 Zoster Vaccines (1 o f 2) Zoster Vaccines (1 of 2) [facility] Start: 1978 DTaP/Tdap/Td Vaccine s (1 - Tdap) DTaP/Tdap/Td Vaccines (1 - Tdap) [facility] Start: 1975 Urine screening for protein Diabetes: Urine Protein Screening [facility] Start: 1974 Hepatitis C screening Hepatitis C Sc [facility] Start: 1966 Diabetic foot examination Diabetes: Foot Exam [facility] Start: 1966 Glaucoma screening Diabetes: R etinopathy Screening [facility] Start: 1962 Pneumococcal Vaccine : 65+ Years (1 - PCV) Pneumococcal Vaccine: 65+ Years (1 - PCV) [facility] Start: 1956 COVID-19 Vaccine (#1) COVID-19 Vacci ne (#1) [facility] Start: 1956 Hemoglobin A1c measurement Diabetes: Hemoglobin A1C [facility] Start: 1956 Lipid panel Lipid Panel [facility] Start: 1955 Medicare Annual Wellness Visit Medicare Annual Wellness Visit (AWV) [facility] Start: 1955 Screening for malign ant neoplasm of colon [facility] Immunizations Immunization Date Immunization Notes Care Provider Fa cility 06-05-2022 influenza virus vacc ine, unspecified formulation Nish Pollack BLADE CHANGER-[facility] Work Phone: [facility] 06-15-2021 influenza, high dose seasonal, preservative-free Nikunj A Naderer Work Phone: [facility] [employer] DO Work Phone: 07-31-2020 Influenza, injectabl e, Madin Kamla Canine Kidney, preservative free, quadrivalent Nikunj A Naderer [facility] Work Phone: 06-09-2020 influenza virus vacc ine, unspecified formulation Nikunj A Naderer [facility] Work Phone: 07-06-2019 Influenza, injectabl e, Madin Kamla Canine Kidney, preservative free, quadrivalent Nikunj A Naderer Work Phone: [facility] Work Phone: 06-09-2019 influenza virus vacc ine, unspecified formulation Nikunj A Naderer Work Phone: [facility] [facility] Work Phone: 06-09-2018 influenza virus vacc ine, unspecified formulation Nikunj A Naderer Work Phone: [facility] Work Phone: 06-25-2017 influenza virus vacc ine, unspecified formulation Nikunj A Naderer [facility]: [facility] Work Phone: 06-09-2017 influenza, injectabl e, quadrivalent, preservative free Nikunj A Naderer Work Phone: [facility] [facility] DO Work Phone: 06-09-2016 influenza virus vacc ine, unspecified formulation Nikunj A Naderer Work Phone: [facility] 250 DO Work Phone: 09-09-2013 pneumococcal polysaccharide vaccine, 23 valent Nikunj Mari Work Phone: [facility] 250 DO Work Phone: Payers Date Payer Category Payer Self-pay 2023 Unknown [id number] 2019 Medicare [id number] 2016 Unknown 2016 Unknown [id number] 1959 Medicare [id number] 1959 Unknown [id number] 1956 Unknown [id number] 2.16.8 [id number] 1956 Unknown [id number] 2.16.8 [id number] 1956 Unknown [id number] 2.16.8 [id number] 1956 Unknown [id number] 2.16.8 [id number] 1956 Unknown [id number] 2.16.84 [id number] 1956 Unknown [id number] 2.16.84 [id number] 1956 Unknown [id number] 2.16.84 [id number] 1956 Unknown [id number] 2.16.8 [id number] 1956 Unknown [id number] 2.16.8 [id number] 1956 Unknown [id number] 2.16.84 [id number] 1956 Unknown [id number] 2.16.8 [id number] Private Health Insurance [id number] Unknown [id number] 2.16.8 [id number] Social History Date Type Detail Facility Start: 10-21-2023 End: 11-06-2023 No illicit drug use No illicit drug use [facility] [facility] DO Work Phone: Comment on above: 1 cup of coffee miller y and 1-2 20oz pop; 1 beer every night; Start: 07-10-2023 End: 11-04-2023 Tobacco smoking status CTIS Never smoked tobacco [facility] Start: 10-21-2023 Alcohol intake Lifetime non-d barry (finding) [facility] Start: 10-21-2023 End: 11-06-2023 Tobacco use panel [facility] Start: 07-10-2023 Alcohol Comment caffeine: 1-2 cups per day [facility] Start: 1955 Sex Assigned At Not on file N [facility] Start: 11-06-2023 Alcohol intake Ex-drinker (finding) [facility] Work Phone: Start: 10-27-2023 End: 11-06-2023 Exposure to SARS-CoV-2 (event) Not sure [facility] Clinical Notes 12-19-2020 to 11-06-2023 Leo Chavarria DO - 11/06/2023 10:30 AM ESTPatient InstructionsNish Pollack, MARIELLE-MARY LOU - 10/21/2023 9:50 AM EST Note Date & Type Note Facility 11-06-2023 History of Present illness Narrative Subjective Elsa Espinoza is a 68 y.o. male Chief Complaint Annual Exam 68-year-old gentleman here for follow-up and doing well. He was recently evaluated at [place] for small bowel obstruction. He historically had [...] , Rfl: omega-3 fatty acids-fish oil (One-Per-Day Melrude-3) 684-1,200 mg capsule, Take 1 capsule (1,200 [...] Atherosclerosis of coronary artery bypass graft of [place] heart without angina pectoris 4. History of [...] discussion and plan. documented in this encounter [facility] Work Phone: 11-06-2023 Instructions Anjali Hicks LPN [...] instructions on exercise. documented in this encounter [facility] Work Phone: 10-21-2023 History of Present illness [...] sunscreen SPF 30 or higher 3. Nevus Engle to brown macules and papules with similar morphologic features Counseled regarding these benign growths. Rarely a nevus can develop into malignant melanoma, so any changing nevi should be promptly re-evaluated 4. Actinic keratosis (15) Left Preauricular Area, Left Protestant, Mid Frontal Scalp, Mid Lower Vermilion Lip (3), Mid Occipital Scalp (3), Mid Parietal Scalp (4), Right Inferior Manheim, Right Mid Manheim Erythematous scaly papules Patient was counseled regarding [...] limited to risks of scarring, darker or instructional technology teacher pigmentary changes, recurrence, incomplete removal and infection. [...] skin lesion - Left Preauricular Area, Left Protestant, Mid Frontal Scalp, Mid Lower Vermilion Lip (3), Mid Occipital Scalp (3), Mid Parietal Scalp (4), Right Inferior Manheim, Right Mid Manheim 5. Common wart Left [place] Middle 5th [...] limited to risks of scarring, darker or instructional technology teacher pigmentary changes, recurrence, incomplete removal and infection. [...] year, skin check documented in this encounter [facility] 11-03-2022 Note CONSULTATION CONSULTATION DATE: 01/04/2023 REASON [...] as cholecystectomy. Had a prolonged course at [facility] by Dr. Pickard with temporary tracheostomy. [...] hospital course. CC: Nikunj Mari M.D. [facility] 08-20-2022 Note SW met with pt and h is at bedside. Pt states he is feeling well and hoping to go home today. He states he is independent has no dme or HHC needs at home. His will transport him home. Patient denies any discharge needs. [facility] 08-20-2022 Note Attestation signed by Georgi Harvey [...] for DVT prophylaxis and plan for discharge [facility] DAILY PROGRESS NOTE Subjective No [...] DM, HTN, HLD, pancreatitis who presents to [facility] as a transfer from [facility] for evaluation of SBO. Advance to regular diet today Replete electrolytes to keep K>4 and Mg>2; Mg bolus given this morning Pain and antiemetic control Incentive spirometry Ambulate/OOB DVT ppx: Lovenox Possible discharge if tolerates regular diet well Alfonso Covarrubias MD General Surgery PGY1 Vince Sweeney [address] 08-19-2022 Note Attestation signed by Lazaro Pickard MD at 08/23/2022 12:10 PM Attending Physician Statement I have discussed the case, including pertinent history and exam findings with Dr. Covarrubias, surgical nurse and have personally seen the patient. I agree with the assessment, plan and orders as documented. [phone] pager [phone] phone [facility] DA[facility] PROGRESS NOTE Subjective No [...] DM, HTN, HLD, pancreatitis who presents to [facility] as a transfer from [facility] for evaluation of SBO. Patient with abdominal pain and concern for SBO on CT. No distention noted. States that pain is improving. Continue NPO Continue NGT to LIS, possible clamping trial later today Continue IVF Pain and antiemetic control Replete electrolytes to keep K>4 and Mg>2 Incentive spirometry Ambulate/OOB DVT ppx: Lovenox Alfonso oCvarrubias MD General Surgery Resident, PGY-9 I can be reached via [employer] Liaison 6a6c [facility] 08-19-[address] [facility] 12-19-2020 Note MR#: [id number] [facility] Pt. Name: Elsa Espinoza Admitted: 12/17/2020 Discharged: 12/18/2020 Date of : 1955 Physician: Lazaro Pickard M.D. DISCHARGE SUMMARY PRINCIPAL DIAGNOSIS: Small bowel obstruction. SECONDARY DIAGNOSES: Coronary artery disease, status post coronary artery bypass grafting in 2001, diabetes. HOSPITAL COURSE: The patient is a 65-year-old male, who presented to [facility] for complaints of increased abdominal pain with nausea. CT abdomen and pelvis showed a high-grade partial versus complete bowel obstruction. He was transferred to [facility] Department for further evaluation by Dr. Pickard, who has done multiple abdominal surgeries on the patient. NG was placed at [facility] and had 300 mL of bilious drainage [...] from me. Date Dict: 12/18/2020/02:27 P/Gloria Resendez, COMMUNITY SPORTS COORDINATOR Date Trans: 12/18/2020 10:36 P/renetta [id number] cc: Nikunj Mari M.D. [address] [place] [address] [facility] Evaluation note Diagnosis Seborrheic keratosis Lentigines Nevus Benign neoplasm of skin, site unspecified Actinic keratosis Common wart Other specified viral warts Inflamed seborrheic keratosis documented in this encounter [facility] Diagnosis Echocardiogram abnormal Nonspecific (abnormal) findings on radiological and other examination of other intrathoracic organs Essential hypertension Unspecified essential hypertension Atherosclerosis of coronary artery bypass graft of [place] heart without angina pectoris History of PTCA Postsurgical percutaneous transluminal coronary angioplasty status Mixed hyperlipidemia S/P CABG (coronary artery bypass graft) Postsurgical aortocoronary bypass status Small bowel obstruction (CMS/HCC) Unspecified intestinal obstruction BMI 25.0-25.9,adult Type 2 diabetes mellitus without complication, without long-term current use of insulin (CMS/HCC) documented in this encounter [facility] Work Phone: Reason for referral (narrative)* Consultation (Routine) - Authorized Specialty Diagnoses / Procedures Referred By Contac t Referred To Contact Cardiology Diagnoses Essential hypertension Procedures Follow Up In Cardiology Leo Chavarria DO [address] [facility], [place] [id number] Referral ID Status Reason Start Date Expiration Date V isits Requested Visits Authorized [id number] Authorized 11/06/2023 11/05/2024 1 1 * Consultation (Routine) - Authorized Specialty Diagnoses / Procedures Referred By Contac t Referred To Contact Cardiology Diagnoses Atherosclerosis of coronary artery bypass graft of [place] heart without angina pectoris Procedures Follow Up In Cardiology Leo Chavarria DO [address] [facility], [address] [address] Leo Chavarria DO [address] [facility], [address] [address] Referral ID Status Reason Start Date Expiration Date V isits Requested Visits Authorized [id number] Authorized 11/06/2023 11/05/2024 1 1 [facility] Work Phone: Summary Purpose Family History No [...] section and content) DATE CREATED AUTHOR 03/04/2018 [facility] DATE CREATED AUTHOR AUTHOR'S ORGANIZ ATION 07/09/2021 [facility] DATE CREATED AUTHOR AUTHOR'S ORGANIZ ATION 10/12/2021 [employer] DATE CREATED AUTHOR AUTHOR'S ORGANIZ ATION 11/13/2021 [facility] DATE CREATED AUTHOR AUTHOR'S ORGANIZ ATION 11/22/2021 [facility] DATE CREATED AUTHOR AUTHOR'S ORGANIZ ATION 02/09/2022 [facility] dical Specialist DATE CREATED AUTHOR AUTHOR'S ORGANIZ ATION 09/20/2022 [facility] DATE CREATED AUTHOR AUTHOR'S ORGANIZ ATION 01/11/2023 [facility] DATE CREATED AUTHOR AUTHOR'S ORGANIZ ATION 01/16/2023 [facility] DATE CREATED AUTHOR AUTHOR'S ORGANIZ ATION 10/22/2023 [facility] dical Specialists EPIC DATE CREATED AUTHOR AUTHOR'S ORGANIZ ATION 11/09/2023 [facility] DATE CREATED AUTHOR AUTHOR'S ORGANIZ ATION 11/22/2023 [facility] (unrecognized sect ion and content) No Status Records FoundNo Status Records FoundNo Status Records FoundNo Status Records FoundNo Status Records FoundNo Status Records FoundNo Status Records FoundNo Status Records FoundNo Status Records FoundNo Status Records FoundNo Status Records Found Care Teams (unrecognized sec tion and content) Supervisor Cytogenetic Laboratory Relationship Specialty Start Date End Date Nikunj Mari MD [address] [place] [address] PCP - General Cardiology 01/18/23 Supervisor Cytogenetic Laboratory Relationship Specialty Start Date End Date Nikunj [...] BE BASED ON THE PRIMARY CLINICAL RECORDS. [facility]. provides no warranty or guarantee of the accuracy or completeness of information in this document.
[2023-12-08 07:28] LABS: Glucometer 250 mg/dL (74-106)
[2023-12-08] MEDS: 0.9 % SODIUM CHLORIDE 1,000 ML 75 ML IV (08:58)
[2023-12-08] MEDS: KETOROLAC TROMETHAMINE 30 MG/ML VIAL IVP ×3 (09:03→21:34)
--- NOTE | 2023-12-08 10:01 | PM.GSCN ---
History of Present Illness Consult details Consult date: 12/08/23 Reason for consult: abdominal pain Narrative: 68 yo M admitted for SBO. Pt had onset of abd pain mid day yesterday into the late night. The pt has been admitted before with similar pain. He denies any emesis and last BM was around 11 pm last night. He has not been passing any flatus since. He had extensive abdominal surgery [place] [address] Umanzor in 2012 for what sounds like a gallstone ileus requiring a right hemicolectomy and a prolonged hospital stay. He has had SBOs that have resolved with conservative measures multiples times since 2012 and has not required any surgeries since then. He denies any current f/c/n/v. He states he is feeling much better since the NGT was placed. He's had about 400-500ml out since placement. Review of Systems ROS Status of ROS 10 or more systems reviewed and unremarkable except as noted in history and below [facility] Medical History (Updated 12/08/23 @ 05:27 by Franklin Madera MD) BPH (benign prostatic hyperplasia) ?N40.0 - Benign prostatic hyperplasia without lower urinary tract symptoms (ICD-10) GERD (gastroesophageal reflux disease) ?K21.9 - Gastro-esophageal reflux disease without esophagitis (ICD-10) Diabetic neuropathic arthropathy ?E11.610 - Type 2 diabetes mellitus with diabetic neuropathic arthropathy (ICD-10) Type 2 diabetes mellitus ?E11.9 - Type 2 diabetes mellitus without complications (ICD-10) Hypertension ?I10 - Essential (primary) hypertension (ICD-10) Surgical History H/O heart bypass surgery ?Z95.1 - Presence of aortocoronary bypass graft (ICD-10) History of bowel resection ?Z90.49 - Acquired absence of other specified parts of digestive tract (ICD-10) Hx of cholecystectomy ?Z90.49 - Acquired absence of other specified parts of digestive tract (ICD-10) Family History Father Family history of CHF (congestive heart failure) Family history of COPD (chronic obstructive pulmonary disease) Family history of cancer Family history of hypertension Grandfather Family history of diabetes mellitus Family history of myocardial infarction Mother Family history of hypertension Family history of stroke Social History Within the past year, how often did you have a drink containing alcohol: 4 or more times a week Within the past year, how many standard drinks containing alcohol did you have on a typical day: 1 or 2 Within the past year, how often did you have six or more drinks on one occasion: never Total score: 0 Score interpretation: Questions 2 and 3 are 0. It can be assumed that the patient's drinking is below the recommended limits. However, please confirm the accuracy of the patient's alcohol intake over the last few months. 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 Known occupational exposures/hazards: No Highest level of school completed/degree received: high school graduate Do you want help with school or training: No Are you now , , , , never or living with a partner: In a typical week, how many times do you talk on the telephone with family, friends, or neighbors: 3 or more times per week How often do you get together with friends or relatives: 3 or more times per week How often do you attend shinto or jew services: never Do you belong to any clubs or organizations such as shinto groups unions, fraternal or athletic groups, or school groups: no Total score: 2 Score interpretation: A score of greater than or equal to 2 indicates the lowest level of social isolation. Little interest or pleasure in doing things: not at all Feeling down, depressed, or hopeless: not at all Feel stressed/tense/nervous/anxious/difficulty sleeping: not at all Due to disability, difficulty making decisions: No Do you think of yourself as: straight/heterosexual Gender Identity: male Meds Home Medications and Allergies Home Medications ?Medication ?Instructions ?Recorded ?Confirmed ?Type atorvastatin 10 mg tablet (Lipitor) 10 mg PO QPM 07/23/23 12/08/23 History ferrous sulfate 325 mg (65 mg 325 mg PO DAILY 07/23/23 12/08/23 History iron) tablet (FeroSul) gabapentin 300 mg capsule 300 mg PO Q12H 07/23/23 12/08/23 History isosorbide mononitrate 60 mg 60 mg PO DAILY 07/23/23 12/08/23 History tablet,extended release 24 hr metformin 1,000 mg tablet 1,000 mg PO BID 07/23/23 12/08/23 History metoprolol succinate 25 mg 25 mg PO DAILY 07/23/23 12/08/23 History tablet,extended release 24 hr pantoprazole 20 mg tablet,delayed 20 mg PO Q12H 07/23/23 12/08/23 History release polyethylene glycol 3350 17 gram 17 g PO DAILY 07/23/23 12/08/23 History oral powder packet (Miralax) ranolazine 500 mg tablet,extended 500 mg PO Q12H 07/23/23 12/08/23 History release,12 hr sucralfate 1 gram tablet (Carafate) 1 g PO ACHS 07/23/23 12/08/23 History tamsulosin 0.4 mg capsule 0.4 mg PO Q24H 07/23/23 12/08/23 History venlafaxine 150 mg 150 mg PO DAILY 07/23/23 12/08/23 History capsule,extended release 24 hr insulin degludec 200 unit/mL (3 40 unit subcut .QD 12/08/23 12/08/23 History mL) subcutaneous pen (Tresiba FlexTouch U-200 insulin) lisinopril 5 mg tablet 5 mg PO DAILY 12/08/23 12/08/23 History losartan 50 mg tablet 50 mg PO .QD 12/08/23 12/08/23 History naproxen 500 mg tablet 500 mg PO BID 12/08/23 12/08/23 History sitagliptin phosphate 100 mg 100 mg PO .QD 12/08/23 12/08/23 History tablet (Januvia) Allergies Allergy/AdvReac Type Severity Reaction Status Date / Time dronabinol [From Marinol] Allergy Severe Hallucinati Verified 12/08/23 03:29 ng hydromorphone [From Dilaudid] AdvReac Unknown Anaphylaxis Verified 12/08/23 03:29 Exam Constitutional Vital Signs, click to edit/add: Last Vital Signs Temp 97.8 F 12/08/23 06:30 Pulse 72 12/08/23 06:30 Resp 18 12/08/23 06:30 BP 178/85 H 12/08/23 06:30 Pulse Ox 92 L 12/08/23 06:30 O2 Del Method Room Air 12/08/23 06:30 Common normals: no apparent distress, average body habitus and oriented x3 HENMT Common normals: normocephalic Head and scalp: normal to inspection Eye Common normals: PERRL and EOMs intact bilaterally Respiratory Common normals: normal respiratory effort and no retractions GI Common normals: soft to palpation and non-tender Palpation: guarding and rigid Other: scars consitent with Sx HX, no pain to palpation, non peritoneal Extremity Common normals: normal to inspection Neuro Common normals: oriented x3 Speech: speech normal Psych Appearance: grossly normal and well kempt Results Labs Labs: Abnormal lab results 12/08/23 12/08/23 Range/Units 03:40 07:26 RBC 4.64 L (4.70-6.10) 10^6/uL Hgb 13.1 L (14.0-18.0) g/dL Hct 39.4 L (42.0-54.0) % Plt Count 114 L (150-450) 10^3/uL Neut % (Auto) 79.6 H (43.0-75.0) % Lymph % (Auto) 10.3 L (20.5-60.0) % Lymph # (Auto) 0.7 L (1.2-3.8) 10^3/uL Glucose 268 H (74-106) mg/dL POC Glucose 250 H (74-106) mg/dL Diabetes panel 12/08/23 Range/Units 03:40 Sodium 136 (136-145) mmol/L Potassium 4.0 (3.5-5.1) mmol/L Chloride 99 (98-107) mmol/L Carbon Dioxide 29.1 (21.0-32.0) mmol/L BUN 12.0 (7.0-18.0) mg/dL Creatinine 0.98 (0.70-1.30) mg/dL Glucose 268 H (74-106) mg/dL Calcium 9.0 (8.5-10.1) mg/dL AST 15 (15-37) U/L ALT 22 (16-63) U/L Alkaline Phosphatase 61 (46-116) U/L Total Protein 6.6 (6.4-8.2) g/dL Albumin 3.7 (3.4-5.0) g/dL Calcium panel 12/08/23 Range/Units 03:40 Calcium 9.0 (8.5-10.1) mg/dL Albumin 3.7 (3.4-5.0) g/dL Pituitary panel 12/08/23 Range/Units 03:40 Sodium 136 (136-145) mmol/L Potassium 4.0 (3.5-5.1) mmol/L Chloride 99 (98-107) mmol/L Carbon Dioxide 29.1 (21.0-32.0) mmol/L BUN 12.0 (7.0-18.0) mg/dL Creatinine 0.98 (0.70-1.30) mg/dL Glucose 268 H (74-106) mg/dL Calcium 9.0 (8.5-10.1) mg/dL Adrenal panel 12/08/23 Range/Units 03:40 Sodium 136 (136-145) mmol/L Potassium 4.0 (3.5-5.1) mmol/L Chloride 99 (98-107) mmol/L Carbon Dioxide 29.1 (21.0-32.0) mmol/L BUN 12.0 (7.0-18.0) mg/dL Creatinine 0.98 (0.70-1.30) mg/dL Glucose 268 H (74-106) mg/dL Calcium 9.0 (8.5-10.1) mg/dL Total Bilirubin 0.6 (0.2-1.0) mg/dL AST 15 (15-37) U/L ALT 22 (16-63) U/L Alkaline Phosphatase 61 (46-116) U/L Total Protein 6.6 (6.4-8.2) g/dL Albumin 3.7 (3.4-5.0) g/dL All other labs normal. Assessment and Plan Assessment and Plan (1) Small bowel obstruction: Plan NGT LIWS, monitor for bowel function, ok for seldom ice chips Encourage ambulation, ok to clamp NGT for walking Goal K 4.0, Mg 2.0, continue IVF hydration KUB tomorrow am (12/08)
[2023-12-08 10:08] LABS: Magnesium 1.6 mg/dL (1.8-2.4)
[2023-12-08 10:16] LABS: Lactate/Lactic Acid 2.1 mmol/L (0.4-2.0)
[2023-12-08] MEDS: PANTOPRAZOLE SODIUM 40 MG VIAL IV (10:28)
[2023-12-08 11:25] LABS: Lactate/Lactic Acid 2.3 mmol/L (0.4-2.0)
[2023-12-08 11:38] LABS: Glucometer 225 mg/dL (74-106)
--- NOTE | 2023-12-08 12:30 | P.HP_ITS ---
HPI H&P: HPI History of Present Illness Chief complaint: Nausea Narrative: Patient presented to the emergency room with increasing abdominal pain. He has a history of bowel obstruction in the past. In the emergency room the CT scan did confirm this. NG tube was placed. Admitted for same. When I saw patient up on the medical surgical floor, his pain is improved, he did receive Toradol. Opioid HPI Opioid Management Most Recent Opioid Data: Last Pain Scale 1 12/08/23 10:25 Last Pain Assessment 12/08/23 13:00 Last ED Pain Assessment 12/08/23 03:55 Last MAR Pain Assessment 12/08/23 10:25 Last ORT Total Score 0 12/08/23 06:30 Last ORT Risk Category Low Risk 12/08/23 06:30 PFSH PFSH Medical History (Updated 12/08/23 @ 05:27 by Franklin Madera MD) BPH (benign prostatic hyperplasia) ?N40.0 - Benign prostatic hyperplasia without lower urinary tract symptoms (ICD-10) GERD (gastroesophageal reflux disease) ?K21.9 - Gastro-esophageal reflux disease without esophagitis (ICD-10) Diabetic neuropathic arthropathy ?E11.610 - Type 2 diabetes mellitus with diabetic neuropathic arthropathy (ICD-10) Type 2 diabetes mellitus ?E11.9 - Type 2 diabetes mellitus without complications (ICD-10) Hypertension ?I10 - Essential (primary) hypertension (ICD-10) Surgical History H/O heart bypass surgery ?Z95.1 - Presence of aortocoronary bypass graft (ICD-10) History of bowel resection ?Z90.49 - Acquired absence of other specified parts of digestive tract (ICD- 10) Hx of cholecystectomy ?Z90.49 - Acquired absence of other specified parts of digestive tract (ICD- 10) Family History Father Family history of CHF (congestive heart failure) Family history of COPD (chronic obstructive pulmonary disease) Family history of cancer Family history of hypertension Grandfather Family history of diabetes mellitus Family history of myocardial infarction Mother Family history of hypertension Family history of stroke Social History Within the past year, how often did you have a drink containing alcohol: 4 or more times a week Within the past year, how many standard drinks containing alcohol did you have on a typical day: 1 or 2 Within the past year, how often did you have six or more drinks on one occasion: never Total score: 0 Score interpretation: Questions 2 and 3 are 0. It can be assumed that the patient's drinking is below the recommended limits. However, please confirm the accuracy of the patient's alcohol intake over the last few months. 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 Known occupational exposures/hazards: No Highest level of school completed/degree received: high school graduate Do you want help with school or training: No Are you now , , , , never or living with a partner: In a typical week, how many times do you talk on the telephone with family, friends, or neighbors: 3 or more times per week How often do you get together with friends or relatives: 3 or more times per week How often do you attend moravian or cheondoism services: never Do you belong to any clubs or organizations such as moravian groups unions, [employer] or athletic groups, or school groups: no Total score: 2 Score interpretation: A score of greater than or equal to 2 indicates the lowest level of social isolation. Little interest or pleasure in doing things: not at all Feeling down, depressed, or hopeless: not at all Feel stressed/tense/nervous/anxious/difficulty sleeping: not at all Due to disability, difficulty making decisions: No Do you think of yourself as: straight/heterosexual Gender Identity: male Meds Home Medications and Allergies Home Medications ?Medication ?Instructions ?Recorded ?Confirmed ?Type atorvastatin 10 mg tablet (Lipitor) 10 mg PO QPM 07/23/23 12/08/23 History ferrous sulfate 325 mg (65 mg 325 mg PO DAILY 07/23/23 12/08/23 History iron) tablet (FeroSul) gabapentin 300 mg capsule 300 mg PO Q12H 07/23/23 12/08/23 History isosorbide mononitrate 60 mg 60 mg PO DAILY 07/23/23 12/08/23 History tablet,extended release 24 hr metformin 1,000 mg tablet 1,000 mg PO BID 07/23/23 12/08/23 History metoprolol succinate 25 mg 25 mg PO DAILY 07/23/23 12/08/23 History tablet,extended release 24 hr pantoprazole 20 mg tablet,delayed 20 mg PO Q12H 07/23/23 12/08/23 History release polyethylene glycol 3350 17 gram 17 g PO DAILY 07/23/23 12/08/23 History oral powder packet (Miralax) ranolazine 500 mg tablet,extended 500 mg PO Q12H 07/23/23 12/08/23 History release,12 hr sucralfate 1 gram tablet (Carafate) 1 g PO ACHS 07/23/23 12/08/23 History tamsulosin 0.4 mg capsule 0.4 mg PO Q24H 07/23/23 12/08/23 History venlafaxine 150 mg 150 mg PO DAILY 07/23/23 12/08/23 History capsule,extended release 24 hr insulin degludec 200 unit/mL (3 40 unit subcut .QD 12/08/23 12/08/23 History mL) subcutaneous pen (Tresiba FlexTouch U-200 insulin) lisinopril 5 mg tablet 5 mg PO DAILY 12/08/23 12/08/23 History losartan 50 mg tablet 50 mg PO .QD 12/08/23 12/08/23 History naproxen 500 mg tablet 500 mg PO BID 12/08/23 12/08/23 History sitagliptin phosphate 100 mg 100 mg PO .QD 12/08/23 12/08/23 History tablet (Januvia) Allergies Allergy/AdvReac Type Severity Reaction Status Date / Time dronabinol [From Marinol] Allergy Severe Hallucinati Verified 12/08/23 03:29 ng hydromorphone [From Dilaudid] AdvReac Unknown Anaphylaxis Verified 12/08/23 03:29 Exam Constitutional Vital Signs, click to edit/add: Last Vital Signs Temp 97.8 F 12/08/23 06:30 Pulse 77 12/08/23 11:34 Resp 20 12/08/23 11:34 BP 172/85 H 12/08/23 11:34 Pulse Ox 95 12/08/23 11:42 O2 Del Method Room Air 12/08/23 11:42 Documenting provider has reviewed patient's vital signs: yes Common normals: no apparent distress Chest Common normals: inspection of chest normal Respiratory Common normals: normal respiratory effort and no retractions Cardio Common normals: regular rate and regular rhythm GI Common normals: negative for soft to palpation Palpation: firm and guarding; no rebound tenderness present Results Labs Labs: Short CBC 12/08/23 Range/Units 03:40 WBC 6.5 (4.0-11.0) 10^3/uL Hgb 13.1 L (14.0-18.0) g/dL Hct 39.4 L (42.0-54.0) % Plt Count 114 L (150-450) 10^3/uL BMP 12/08/23 03:40 Sodium 136 Potassium 4.0 Chloride 99 Carbon Dioxide 29.1 BUN 12.0 Creatinine 0.98 Glucose 268 H Calcium 9.0 Liver Function 12/08/23 Range/Units 03:40 Total Bilirubin 0.6 (0.2-1.0) mg/dL Direct Bilirubin 0.2 (0.0-0.2) mg/dL AST 15 (15-37) U/L ALT 22 (16-63) U/L Alkaline Phosphatase 61 (46-116) U/L Albumin 3.7 (3.4-5.0) g/dL Assessment and Plan Assessment and Plan (1) Small bowel obstruction: Plan Uncontrolled hypertension, uncontrolled diabetes, positive lactate, thrombocythemia, left shift on his white blood cell count consistent with possible acute abdomen. This is secondary to small bowel obstruction. Unable to get extensive fluid resuscitation secondary to fluid overload in the past. Continue with current fluid resuscitation, adjust oral medications to IV and topical. Start IV antibiotics. Check acute abdominal series in a.m. Uncontrolled hypertension with a history of coronary artery disease-secondary to above-will use topical nitrates and IV Vasotec. As well as as needed hydralazine Insulin-dependent diabetes mellitus-insulin sliding scale. Hypomagnesemia-we will supplement once taking oral Iron deficiency anemia-monitor daily Thrombocytopenia likely secondary to stress reaction secondary to the above GERD-IV Protonix Inpatient criteria: Patient admitted inpatient status. Patient with small bowel obstruction. Patient highly likely to have a 2 midnight stay for medically necessary treatment for small bowel obstruction with possible acute abdomen with positive lactate and left shift on blood cell count consistent with bacterial process.
[2023-12-08] MEDS: ENALAPRILAT DIHYDRATE 1.25 MG/ML VIAL IV (13:49)
[2023-12-08] MEDS: MAGNESIUM SULFATE IN WATER 2 GM/50 ML PREMIX IV (13:49)
[2023-12-08] MEDS: METOPROLOL TARTRATE 5 MG/5 ML VIAL IVP ×2 (15:01→21:34)
[2023-12-08] MEDS: PIPERACILLIN SODIUM/TAZOBACTAM 3.375 GM in 0.9 % SODIUM CHLORIDE 50 ML IV ×2 (15:25→21:33)
[2023-12-08] MEDS: NITROGLYCERIN 2% 1 GRAM PACKET 1 GM TD (15:26)
[2023-12-08 17:03] LABS: Glucometer 172 mg/dL (74-106)
[2023-12-08 20:32] LABS: Glucometer 189 mg/dL (74-106)
--- NOTE | 2023-12-08 20:55 | PC.NURSE ---
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 Asking about pain meds, if its too early. pt states that he has abd pain #2-3 on scale. Pt made aware that he will be due to have pain meds in about 35-40 min. Pt's primary nurse also aware
[2023-12-08] MEDS: ONDANSETRON PF 4 MG/2 ML VIAL IV (21:42)
[2023-12-09] VITALS (8 sets, daily range): BP systolic 113–150; BP diastolic 63–80; PULSE 67–75; TEMP 36.4–37; O2SAT 92–96
[2023-12-09] MEDS: 0.9 % SODIUM CHLORIDE 1,000 ML 75 ML IV ×3 (01:45→15:51)
[2023-12-09] MEDS: PIPERACILLIN SODIUM/TAZOBACTAM 3.375 GM in 0.9 % SODIUM CHLORIDE 50 ML IV (05:21)
[2023-12-09] MEDS: METOPROLOL TARTRATE 5 MG/5 ML VIAL IVP (05:22)
--- NOTE | 2023-12-09 06:00 | XR_ITS ---
The [address] [address] Patient Name: ELSA RUTHERFORD MRN: [id number] date: 1955 Sex: M Assigned Patient Location: [place] Current Patient Location: [place] Accession/Order Number: [id number] Exam Date: 12/09/2023 06:15 Report Date: 12/09/2023 07:45 At the request of: MONTY OCONNELL Procedure: XR abdomen min 2V EXAM: XR ABDOMEN MIN 2V 12/09/2023 COMPARISON STUDY: CT of the abdomen and pelvis 12/08/2023. FINDINGS: A total of 2 images were obtained. HISTORY: SBO. XR/XR abdomen min 2V IMPRESSION: 1. Prior median sternotomy presumably from CABG. Bibasilar atelectatic/fibrotic opacities are asymmetrically greater toward the left. 2. NG tube extends below the diaphragm with the tip in the distribution of the proximal gastric lumen. 3. Suture material overlapping right abdomen from prior partial bowel resection noted. Subcentimeter bilateral renal calculi are identified. One of the larger stones at the inferior pole of the right kidney for example measures 8 mm superior to inferior. 4. On the upright image there are scattered air-fluid levels within bowel segments about the abdomen and pelvis. No obvious free air. Increased haziness about the abdomen and pelvis related to known ascites noted. 5. There is abnormal similar distention of the small bowel raising concern for persistent partial small bowel obstruction and/or ileus. There is a small volume of gas within the large bowel more distally which has partially collapsed appearance. 6. Changes from atherosclerosis with peripheral vascular arterial disease. The osseous structures are stable. Electronically authenticated by: CHATA STERLING Date: 12/09/2023 07:45
[2023-12-09 06:55] LABS: Basophils Percent Auto 0.3 % (0.2-2.0); Eosinophils Absolute Auto 0.1 10^3/uL (0.0-0.7); Eosinophils Percent Auto 3.7 % (0.9-7.0); Hematocrit 43.2 % (42.0-54.0); Hemoglobin 13.9 g/dL (14.0-18.0); Immature Granulocytes Abs Auto 0.01 10^3/uL (0.00-0.03); Immature Granulocytes Pct Auto 0.3 % (0.0-0.5); Lymphocytes Absolute Auto 0.3 10^3/uL (1.2-3.8); Lymphocytes Percent Auto 8.8 % (20.5-60.0); Mean Corpuscular HGB Conc 32.2 g/dL (29.9-35.2); Mean Corpuscular Hemoglobin 27.9 pg (25.9-34.0); Mean Corpuscular Volume 86.7 fL (80.0-94.0); Mean Platelet Volume 10.7 fL (9.5-13.5); Monocytes Absolute Auto 0.6 10^3/uL (0.3-0.8); Monocytes Percent Auto 15.2 % (1.7-12.0); Neutrophils Absolute Auto 2.7 10^3/uL (1.4-6.5); Neutrophils Percent Auto 71.7 % (43.0-75.0); Platelet Count 125 10^3/uL (150-450); Red Blood Count 4.98 10^6/uL (4.70-6.10); Red Cell Distribution Width 13.4 % (11.0-15.0); White Blood Count 3.8 10^3/uL (4.0-11.0)
[2023-12-09 06:56] LABS: Alanine Aminotransferase 124 U/L (16-63); Albumin Level 3.2 g/dL (3.4-5.0); Alkaline Phosphatase 98 U/L (46-116); Anion Gap 11.7; Aspartate Amino Transferase 70 U/L (15-37); Bilirubin Total 0.7 mg/dL (0.2-1.0); Calcium 8.5 mg/dL (8.5-10.1); Carbon Dioxide 29.6 mmol/L (21.0-32.0); Chloride 101 mmol/L (98-107); Estimated GFR (African America >60 (>=60); Estimated GFR (Non-African Ame 57 (>=60); Globulin 3.2 g/dL; Glucose 213 mg/dL (74-106); Potassium 4.3 mmol/L (3.5-5.1); Sodium 138 mmol/L (136-145); Total Protein 6.4 g/dL (6.4-8.2)
--- NOTE | 2023-12-09 08:19 | FL_ITS ---
The [address] [address] Patient Name: ELSA RUTHERFORD MRN: [id number] date: 1955 Sex: M Assigned Patient Location: [place] Current Patient Location: [place] Accession/Order Number: [id number] Exam Date: 12/09/2023 12:05 Report Date: 12/09/2023 12:52 At the request of: AMARIS KNOWLES Procedure: FL small bowel follow through EXAMINATION: FL small bowel follow through HISTORY: SBO COMPARISON: XR abdomen 12/09/2023 TECHNIQUE: Small bowel series was performed in the usual manner. No eviscerator abdominal radiograph was performed. Standard level fluoroscopic mode of operation utilized. FINDINGS: At 1 hour, oral contrast has passed through the entire small bowel and colon and is present within the rectum. No abnormal bowel dilation or obstruction. FL/FL small bowel follow through IMPRESSION: 1. Oral contrast has passed through the entire bowel within 1 hour. No obstruction or ileus. Electronically authenticated by: SHAUNA REYES Date: 12/09/2023 12:52
--- NOTE | 2023-12-09 08:25 | PM.GSPN ---
Progress Note: A&P Assessment and Plan (1) Small bowel obstruction: Assessment and Plan: SBFT negative, contrast reached the colon, no concerns for complete SBO at this time Can remove NGT after trial of sips of clears Encourage ambulation goal K+ 4.0, Mg 2 Adv to CLD and if doing well FLD later this PM or in am. Pt to remain on FLD for next couple days. Pt to f/u with Dr. Umanzor. Ok for d/c if tolerates PO intake Subjective Subjective Interval history: Pt with 1650 NGT/emesis output. Had one episode of emesis overnight. Had 2 BMs overnight. Had another BM this morning. He states that he is feeling well and no nausea. He has had all of the contrast for the small bowel follow-through and has not gotten nauseous. The NG tube has been clamped since approximately 9 AM. X-ray was at bedside taking an image and I reviewed them he has contrast to his colon and rectum, no concerns for small bowel obstruction at this time. I told him that we will remove the NG tube and see how he does with clears. He is to advance slowly to full liquids and home by either late tonight or early tomorrow a.m. if continues to do well. I discussed with him and his he should follow-up with Dr. Umanzor here soon given the extensive surgeries had with him. Exam Constitutional Vital Signs, click to edit/add: Last Vital Signs Temp 98.6 F 12/09/23 08:06 Pulse 67 12/09/23 08:06 Resp 16 12/09/23 08:06 BP 150/77 H 12/09/23 08:06 Pulse Ox 95 12/09/23 08:06 O2 Del Method Room Air 12/09/23 08:06 Common normals: no apparent distress and oriented x3 HENMT Common normals: normocephalic Head and scalp: normal to inspection Cardio Common normals: regular rate and regular rhythm GI Common normals: soft to palpation and non-tender Inspection: normal to inspection Palpation: guarding and rigid Extremity Common normals: normal to inspection and full ROM Neuro Common normals: oriented x3 Speech: speech normal Psych Appearance: grossly normal
--- NOTE | 2023-12-09 09:33 | CM.NOTE ---
Rounds made with Dr. Maxwell, general surgery consult today for further recommendations.
--- NOTE | 2023-12-09 10:09 | P.PN_ITS ---
Exam Constitutional Vital Signs, click to edit/add: Last Vital Signs Temp 98.6 F 12/09/23 08:06 Pulse 67 12/09/23 08:06 Resp 16 12/09/23 08:06 BP 150/77 H 12/09/23 08:06 Pulse Ox 95 12/09/23 08:06 O2 Del Method Room Air 12/09/23 08:06 Progress Note: Objective Labs Labs: Short CBC 12/09/23 Range/Units 06:27 WBC 3.8 L (4.0-11.0) 10^3/uL Hgb 13.9 L (14.0-18.0) g/dL Hct 43.2 (42.0-54.0) % Plt Count 125 L (150-450) 10^3/uL BMP 12/09/23 06:27 Sodium 138 Potassium 4.3 Chloride 101 Carbon Dioxide 29.6 BUN 24.0 H Creatinine 1.26 Glucose 213 H Calcium 8.5 Liver Function 12/09/23 Range/Units 06:27 Total Bilirubin 0.7 (0.2-1.0) mg/dL AST 70 H (15-37) U/L ALT 124 H (16-63) U/L Alkaline Phosphatase 98 (46-116) U/L Albumin 3.2 L (3.4-5.0) g/dL Progress Note: A&P Assessment and Plan (1) Small bowel obstruction: Plan Uncontrolled hypertension, uncontrolled diabetes, positive lactate, thrombocythemia, left shift on his white blood cell count consistent with possible acute abdomen. This is secondary to small bowel obstruction. Unable to get extensive fluid resuscitation secondary to fluid overload in the past. Continue with current fluid resuscitation, adjust oral medications to IV and topical. Start IV antibiotics. Check acute abdominal series in a.m. Uncontrolled hypertension with a history of coronary artery disease-secondary to above-will use topical nitrates and IV Vasotec. As well as as needed hydralazine Insulin-dependent diabetes mellitus-insulin sliding scale. Hypomagnesemia-we will supplement once taking oral Iron deficiency anemia-monitor daily Thrombocytopenia likely secondary to stress reaction secondary to the above GERD-IV Protonix Inpatient criteria: Patient admitted inpatient status. Patient with small bowel obstruction. Patient highly likely to have a 2 midnight stay for medically necessary treatment for small bowel obstruction with possible acute abdomen with positive lactate and left shift on blood cell count consistent with bacterial process.
[2023-12-09] MEDS: ENALAPRILAT DIHYDRATE 1.25 MG/ML VIAL IV (10:20)
[2023-12-09] MEDS: PANTOPRAZOLE SODIUM 40 MG VIAL IV (10:21)
[2023-12-09 12:00] LABS: Glucometer 185 mg/dL (74-106)
[2023-12-09 16:21] LABS: Glucometer 252 mg/dL (74-106)
[2023-12-09] MEDS: SUCRALFATE 1 GM TABLET PO (17:19)
--- NOTE | 2023-12-09 20:37 | P.DS_ITS ---
DS: Providers Provider Date of admission: 12/08/23 06:21 Primary care physician: Nikunj Ireland MD Consults: 12/08/23 06:13 Consult to General Surgeon Routine Consulting Provider: Isacc Ramirez Reason for consultation: SBO 12/08/23 09:31 Consult to Pharmacy Routine Consulting Provider: Reason for consultation: Please [place] me when Med Rec is Updated Has provider been notified: No Occupational Therapy Eval and Treat Routine Reason for consultation: Only if needed for Rehab Has provider been notified: No Physical Therapy Eval and Treat Routine Reason for consultation: Eval and Treat Has provider been notified: No DS: Diagnosis Discharge Diagnosis (1) Small bowel obstruction: Plan Uncontrolled hypertension, uncontrolled diabetes, positive lactate, thrombocythemia, left shift on his white blood cell count consistent with possible acute abdomen. This is secondary to small bowel obstruction. Unable to get extensive fluid resuscitation secondary to fluid overload in the past. Continue with current fluid resuscitation, adjust oral medications to IV and topical. Start IV antibiotics. Check acute abdominal series in a.m. Uncontrolled hypertension with a history of coronary artery disease-secondary to above-will use topical nitrates and IV Vasotec. As well as as needed hydralazine Insulin-dependent diabetes mellitus-insulin sliding scale. Hypomagnesemia-we will supplement once taking oral Iron deficiency anemia-monitor daily Thrombocytopenia likely secondary to stress reaction secondary to the above GERD-IV Protonix Inpatient criteria: Patient admitted inpatient status. Patient with small bowel obstruction. Patient highly likely to have a 2 midnight stay for medically necessary treatment for small bowel obstruction with possible acute abdomen with positive lactate and left shift on blood cell count consistent with bacterial process. DS: Summary Hospital Course Hospital Course: Patient was admitted with nausea and vomiting, has a history of small bowel obstruction, CT scan confirmed a small bowel obstruction. Patient was placed n.p.o., NG placed with suction, he did well over the first night. But then this morning had emesis. Check placement and acute abdominal series was still showed some air-fluid levels but NG tube is in the superior portion of the stomach. The NG tube was advanced with good increasing drainage of fluids. NG tube was clamped, with no increase in fluid after clamping NG tube was removed, his diet was advanced slowly. Although it was recommended that he stay 1 additional day to make sure the small bowel obstruction was not going to recur or ileus which she would be at high risk for, patient felt improved enough to the point that he can be discharged home. Medications see list. Follow-up with his PCP within the next week. Follow-up with surgery for possible further evaluation for recurrence of his small bowel obstructions. Time Spent with Patient Time attestation: Total time spent providing and/or coordinating discharge services: Exam Constitutional Vital Signs, click to edit/add: Last Vital Signs Temp 98.4 F 12/09/23 16:23 Pulse 75 12/09/23 16:23 Resp 16 12/09/23 16:23 BP 150/80 H 12/09/23 16:23 Pulse Ox 94 L 12/09/23 16:23 O2 Del Method Room Air 12/09/23 14:00 Documenting provider has reviewed patient's vital signs: yes Common normals: no apparent distress Chest Common normals: inspection of chest normal Respiratory Common normals: normal respiratory effort and no retractions Cardio Common normals: regular rate and regular rhythm GI Common normals: soft to palpation Palpation: not firm (Much improved from admission), no guarding and no rebound tenderness present DS: Data Data Completed and Pending Labs on day of discharge: Labs from last 24 hours 12/09/23 12/09/23 12/09/23 16:20 12:00 06:27 WBC 3.8 L RBC 4.98 Hgb 13.9 L Hct 43.2 MCV 86.7 MCH 27.9 MCHC 32.2 RDW 13.4 Plt Count 125 L MPV 10.7 Neut % (Auto) 71.7 Lymph % (Auto) 8.8 L [place] % (Auto) 15.2 H Eos % (Auto) 3.7 Baso % (Auto) 0.3 Neut # (Auto) 2.7 Lymph # (Auto) 0.3 L [place] # (Auto) 0.6 Eos # (Auto) 0.1 Baso # (Auto) 0.0 Abs Immat Gran (auto) 0.01 Imm/Tot Granulo (auto) 0.3 Sodium 138 Potassium 4.3 Chloride 101 Carbon Dioxide 29.6 Anion Gap 11.7 BUN 24.0 H Creatinine 1.26 Est GFR ( Amer) >60 Est GFR (Non-Af Amer) 57 L BUN/Creatinine Ratio 19.0 Glucose 213 H Calcium 8.5 Total Bilirubin 0.7 AST 70 H ALT 124 H Alkaline Phosphatase 98 Total Protein 6.4 Albumin 3.2 L Globulin 3.2 Albumin/Globulin Ratio 1.0 POC Glucose 252 H 185 H Discharge Plan Discharge Disposition: Home, Self-Care Condition: Good Discharge Medications: Continued gabapentin 300 mg capsule 300 mg PO Q12H metoprolol succinate 25 mg tablet extended release 24 hr 25 mg PO DAILY ranolazine 500 mg tablet extended release 12 hr 500 mg PO Q12H tamsulosin 0.4 mg capsule 0.4 mg PO Q24H venlafaxine 150 mg capsule,extended release 24hr 150 mg PO DAILY pantoprazole 20 mg tablet,delayed release (DR/EC) 20 mg PO Q12H atorvastatin [Lipitor] 10 mg tablet 10 mg PO QPM metformin 1,000 mg tablet 1,000 mg PO BID ferrous sulfate [FeroSul] 325 mg (65 mg iron) tablet 325 mg PO DAILY sucralfate [Carafate] 1 gram tablet 1 g PO ACHS polyethylene glycol 3350 [Miralax] 17 gram powder in packet 17 g PO DAILY isosorbide mononitrate 60 mg tablet extended release 24 hr 60 mg PO DAILY losartan 50 mg tablet 50 mg PO .QD naproxen 500 mg tablet 500 mg PO BID insulin degludec [Tresiba FlexTouch U-200] 200 unit/mL (3 mL) insulin pen 40 unit SUBCUT .QD Januvia 100 mg tablet 100 mg PO .QD lisinopril 5 mg tablet 5 mg PO DAILY Activity: increase activity as tolerated Diet: advance to your usual diet Diet Detail: Full liquid Print Language: Wolof Patient Instructions: Barium Enema (DC), Acute Nausea and Vomiting (DC), Bowel Obstruction (DC), Full Liquid Diet (DC) Forms: Portal Instructions Follow Up Appointments: Call Dr. Mix for follow up tomorrow Discharge Date/Time: 12/09/23 18:50 Discharge location: home
--- NOTE | 2023-12-10 15:48 | CM.DCFOLLOWU ---
1st attempt. No answer
--- NOTE | 2023-12-12 14:38 | CM.DCFOLLOWU ---
12/11- 2nd attempt. No answer
== END 2023-12-09 18:50 | disposition home or self-care (01) | DRG 390 ==
LOC: ER 05:27 → MS 06:24
PROVIDERS: Admitting Provider Family Medicine; Emergency Provider Emergency Medicine; PCP Family Medicine; Visit Provider Family Medicine
DX: K56.609 Unspecified intestinal obstruction, unspecified as to partial versus complete obstruction (principal); I10 Essential (primary) hypertension; E11.65 Type 2 diabetes mellitus with hyperglycemia; D75.839 Thrombocytosis, unspecified; E83.42 Hypomagnesemia; D50.9 Iron deficiency anemia, unspecified; I25.10 Atherosclerotic heart disease of native coronary artery without angina pectoris; K21.9 Gastro-esophageal reflux disease without esophagitis; E11.610 Type 2 diabetes mellitus with diabetic neuropathic arthropathy; N40.0 Benign prostatic hyperplasia without lower urinary tract symptoms; Z79.899 Other long term (current) drug therapy; Z79.4 Long term (current) use of insulin; Z90.49 Acquired absence of other specified parts of digestive tract; Z95.1 Presence of aortocoronary bypass graft; Z87.19 Personal history of other diseases of the digestive system; Z79.84 Long term (current) use of oral hypoglycemic drugs; Z79.1 Long term (current) use of non-steroidal anti-inflammatories (NSAID); Z88.5 Allergy status to narcotic agent; Z88.8 Allergy status to other drugs, medicaments and biological substances
CPT/HCPCS: 36415; 71045; 74019; 74177; 74248; 80048; 80053; 80076; 82150; 82948; 83605; 83690; 83735; 85025; 94667; 94668; 94761; 96365; 96366; 96367; 96375; 96376; 97165; 99285; Q9963; Q9967

== ENCOUNTER 2024-02-06 19:33 | Inpatient (IN) | payer MEDICARE, OTHER, SELFPAY ==
[2024-02-06] VITALS (23 sets, daily range): BP systolic 130–159; BP diastolic 74–90; PULSE 68–78; TEMP 36.4–36.6; O2SAT 92–98; BMI 24.4; BMI 24.1
--- NOTE | 2024-02-06 19:46 | ED.ABDPAIN1 ---
Documented by User: JUAN MIGUEL Ruiz 02/06/24 20:59 HPI - Abdominal Pain General Chief Complaint: Abdominal Pain Stated Complaint: poss bowel obstruction Time Seen by Provider: 02/06/24 19:34 Source: patient and family Mode of arrival: walk-in Limitations: no limitations History of Present Illness HPI narrative: And is a 68-year-old male with a history of recurrent small bowel obstructions presents to the ER with concern he may be developing another obstruction. Pain began today, generalized in the central abdomen. He denies fevers, chills, vomiting. He did feel nauseous earlier today. He had a small bowel movement this morning. He was last treated for a small bowel obstruction in November of this year. He was treated conservatively at this facility. He has not required surgery for recurrent bowel obstructions. He initially had surgery with Dr. Umanzor at [facility] about 9 years ago. He had a cholecystectomy with right hemicolectomy and adhesion removal 1 year later. He has not had any abdominal surgeries since that time. He denies urinary symptoms or flank pain. Related Data Home Medications ?Medication ?Instructions ?Recorded ?Confirmed atorvastatin 10 mg tablet (Lipitor) 10 mg PO QPM 07/23/23 12/08/23 ferrous sulfate 325 mg (65 mg 325 mg PO DAILY 07/23/23 12/08/23 iron) tablet (FeroSul) gabapentin 300 mg capsule 300 mg PO Q12H 07/23/23 02/06/24 isosorbide mononitrate 60 mg 60 mg PO DAILY 07/23/23 02/06/24 tablet,extended release 24 hr metformin 1,000 mg tablet 1,000 mg PO BID 07/23/23 02/06/24 metoprolol succinate 25 mg 25 mg PO DAILY 07/23/23 02/06/24 tablet,extended release 24 hr pantoprazole 20 mg tablet,delayed 20 mg PO Q12H 07/23/23 02/06/24 release polyethylene glycol 3350 17 gram 17 g PO DAILY 07/23/23 02/06/24 oral powder packet (Miralax) ranolazine 500 mg tablet,extended 500 mg PO Q12H 07/23/23 02/06/24 release,12 hr sucralfate 1 gram tablet (Carafate) 1 g PO ACHS 07/23/23 02/06/24 tamsulosin 0.4 mg capsule 0.4 mg PO Q24H 07/23/23 02/06/24 venlafaxine 150 mg 150 mg PO DAILY 07/23/23 02/06/24 capsule,extended release 24 hr insulin degludec 200 unit/mL (3 40 unit subcut .QD 12/08/23 02/06/24 mL) subcutaneous pen (Tresiba FlexTouch U-200 insulin) lisinopril 5 mg tablet 5 mg PO DAILY 12/08/23 02/06/24 losartan 50 mg tablet 50 mg PO .QD 12/08/23 02/06/24 naproxen 500 mg tablet 500 mg PO BID 12/08/23 02/06/24 sitagliptin phosphate 100 mg 100 mg PO .QD 12/08/23 02/06/24 tablet (Januvia) Allergies Allergy/AdvReac Type Severity Reaction Status Date / Time dronabinol [From Marinol] Allergy Severe Hallucinati Verified 02/06/24 19:43 ng hydromorphone [From Dilaudid] AdvReac Unknown Anaphylaxis Verified 02/06/24 19:43 Review of Systems ROS Constitutional Denies: fever or chills Ears, nose, mouth, and throat Denies: throat pain or nasal congestion Respiratory Denies: shortness of breath Gastrointestinal Reports: abdominal pain and nausea; Denies: vomiting or diarrhea Genitourinary Denies: painful urination Musculoskeletal Denies: back pain Integumentary/Breast Denies: rash Neurological Denies: headache Hematologic/Lymphatic Denies: easy bruising or easy bleeding [facility] Medical History (Updated 02/06/24 @ 22:20 by Franklin Madera MD) Small bowel obstruction ?K56.609 - Unspecified intestinal obstruction, unspecified as to partial versus complete obstruction (ICD-10) BPH (benign prostatic hyperplasia) ?N40.0 - Benign prostatic hyperplasia without lower urinary tract symptoms (ICD-10) GERD (gastroesophageal reflux disease) ?K21.9 - Gastro-esophageal reflux disease without esophagitis (ICD-10) Diabetic neuropathic arthropathy ?E11.610 - Type 2 diabetes mellitus with diabetic neuropathic arthropathy (ICD-10) Type 2 diabetes mellitus ?E11.9 - Type 2 diabetes mellitus without complications (ICD-10) Hypertension ?I10 - Essential (primary) hypertension (ICD-10) Surgical History H/O heart bypass surgery ?Z95.1 - Presence of aortocoronary bypass graft (ICD-10) History of bowel resection ?Z90.49 - Acquired absence of other specified parts of digestive tract (ICD-10) Hx of cholecystectomy ?Z90.49 - Acquired absence of other specified parts of digestive tract (ICD-10) Family History Father Family history of CHF (congestive heart failure) Family history of COPD (chronic obstructive pulmonary disease) Family history of cancer Family history of hypertension Grandfather Family history of diabetes mellitus Family history of myocardial infarction Mother Family history of hypertension Family history of stroke Social History Within the past year, how often did you have a drink containing alcohol: 4 or more times a week Within the past year, how many standard drinks containing alcohol did you have on a typical day: 1 or 2 Within the past year, how often did you have six or more drinks on one occasion: never Total score: 0 Score interpretation: Questions 2 and 3 are 0. It can be assumed that the patient's drinking is below the recommended limits. However, please confirm the accuracy of the patient's alcohol intake over the last few months. 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 Known occupational exposures/hazards: No Highest level of school completed/degree received: high school graduate Do you want help with school or training: No Are you now , , , , never or living with a partner: In a typical week, how many times do you talk on the telephone with family, friends, or neighbors: 3 or more times per week How often do you get together with friends or relatives: 3 or more times per week How often do you attend anabaptist or roman catholic services: never Do you belong to any clubs or organizations such as anabaptist groups unions, fraternal or athletic groups, or school groups: no Total score: 2 Score interpretation: A score of greater than or equal to 2 indicates the lowest level of social isolation. Little interest or pleasure in doing things: not at all Feeling down, depressed, or hopeless: not at all Feel stressed/tense/nervous/anxious/difficulty sleeping: not at all Due to disability, difficulty making decisions: No Do you think of yourself as: straight/heterosexual Gender Identity: male Exam Narrative Exam Narrative: Gen.: Awake, alert, in no distress Head: Normocephalic, atraumatic ENT: Moist mucous membranes Respiratory: No respiratory distress, lungs clear bilaterally Cardio: Regular rate and rhythm Gastrointestinal: Abdomen is soft, nondistended, diffusely minimally tender to palpation with well-healed surgical incision of the midline low abdomen. Extremities: Moves extremities equally Psych: Normal mood and affect Neuro: No focal neuro deficit Skin: Warm, dry, intact Constitutional Vital Signs, click to edit/add: Last Vital Signs Temp 97.5 F L 02/06/24 19:39 Pulse 68 02/06/24 19:39 Resp 16 02/06/24 19:39 BP 152/90 H 02/06/24 22:09 Pulse Ox 95 02/06/24 22:10 O2 Del Method Room Air 02/06/24 19:39 Course Vital Signs Vital signs: Vital Signs Temperature 97.5 F L 02/06/24 19:39 Pulse Rate 68 02/06/24 19:39 Respiratory Rate 16 02/06/24 19:39 Blood Pressure 157/89 H 02/06/24 19:39 Pulse Oximetry 97 02/06/24 19:39 Oxygen Delivery Method Room Air 02/06/24 19:39 Temperature 97.5 F L 02/06/24 19:39 Pulse Rate 68 02/06/24 19:39 Respiratory Rate 16 02/06/24 19:39 Blood Pressure 152/90 H 02/06/24 22:09 Pulse Oximetry 95 02/06/24 22:10 Oxygen Delivery Method Room Air 02/06/24 19:39 MDM - Abdominal Pain MDM Narrative Medical decision making narrative: 2100: Patient was medicated with IV fluids, Toradol, Zofran. Vital signs are stable in the ER. Laboratory studies were obtained, urine specimen obtained and patient was found to have elevated lipase. CT of the abdomen and pelvis with IV contrast is pending. Case is turned over to attending physician at this time for disposition. Medical Records Attestation: I reviewed the patient's medical records. Lab Data Attestation: I reviewed the patient's lab results. Labs: Lab Results 02/06/24 02/06/24 02/06/24 Range/Units 19:44 21:14 21:36 WBC 8.0 (4.0-11.0) 10^3/uL RBC 5.26 (4.70-6.10) 10^6/uL Hgb 14.4 (14.0-18.0) g/dL Hct 44.3 (42.0-54.0) % MCV 84.2 (80.0-94.0) fL MCH 27.4 (25.9-34.0) pg MCHC 32.5 (29.9-35.2) g/dL RDW 13.2 (11.0-15.0) % Plt Count 133 L (150-450) 10^3/uL MPV 9.7 (9.5-13.5) fL Neut % (Auto) 79.5 H (43.0-75.0) % Lymph % (Auto) 13.2 L (20.5-60.0) % [place] % (Auto) 5.5 (1.7-12.0) % Eos % (Auto) 1.5 (0.9-7.0) % Baso % (Auto) 0.2 (0.2-2.0) % Neut # (Auto) 6.4 (1.4-6.5) 10^3/uL Lymph # (Auto) 1.1 L (1.2-3.8) 10^3/uL [place] # (Auto) 0.4 (0.3-0.8) 10^3/uL Eos # (Auto) 0.1 (0.0-0.7) 10^3/uL Baso # (Auto) 0.0 (0.0-0.1) 10^3/uL Abs Immat Gran (auto) 0.01 (0.00-0.03) 10^3/uL Imm/Tot Granulo (auto) 0.1 (0.0-0.5) % Sodium 133 L (136-145) mmol/L Potassium 4.0 (3.5-5.1) mmol/L Chloride 95 L (98-107) mmol/L Carbon Dioxide 29.1 (21.0-32.0) mmol/L Anion Gap 12.9 BUN 10.0 (7.0-18.0) mg/dL Creatinine 1.02 (0.70-1.30) mg/dL Est GFR ( Amer) >60 (>=60) Est GFR (Non-Af Amer) >60 (>=60) BUN/Creatinine Ratio 9.8 Glucose 198 H (74-106) mg/dL Lactate 2.6 H* 1.9 (0.4-2.0) mmol/L Calcium 9.2 (8.5-10.1) mg/dL Total Bilirubin 0.5 (0.2-1.0) mg/dL AST 31 (15-37) U/L ALT 32 (16-63) U/L Alkaline Phosphatase 69 (46-116) U/L Total Protein 7.4 (6.4-8.2) g/dL Albumin 4.0 (3.4-5.0) g/dL Globulin 3.4 g/dL Albumin/Globulin Ratio 1.2 Lipase 502.0 H (16.0-77.0) U/L Urine Color Yellow (YELLOW) Urine Clarity Clear (CLEAR) Urine pH 5.5 (5.0-9.0) Ur Specific [place] 1.020 (1.005-1.025) Urine Protein Trace (NEG/TRACE) mg/dL Urine Glucose (UA) Negative (NEGATIVE) mg/dL Urine Ketones Trace A (NEGATIVE) mg/dL Urine Occult Blood Negative (NEGATIVE) Urine Nitrite Negative (NEGATIVE) Urine Bilirubin Negative (NEGATIVE) Urine Urobilinogen 0.2 (0.2-1.0) EU/dL Ur Leukocyte Esterase Negative (NEGATIVE) Imaging Data CT scan - abdomen: Radiologist's impression: ITS Impressions Abdomen/Pelvis CT 02/06/24 20:25 IMPRESSION: 1. Dilation of the small bowel loops of the right lower quadrant, consistent with small bowel obstruction. The small bowel bowel loops are dilated up to 3.4 cm. 2. Right hemicolectomy. 3. Nonobstructive stones of the bilateral kidneys. 4. Cholecystectomy. Electronically authenticated by: LISA WORRELL Date: 02/06/2024 22:11 Discharge Plan Discharge Chief Complaint: Abdominal Pain Clinical Impression: Small bowel obstruction Patient Disposition: Admitted As Inpatient Time of Disposition Decision: 22:20 Condition: Good Documented by User: Franklin Madera MD 02/06/24 22:31 HPI - Abdominal Pain General Chief Complaint: Abdominal Pain Stated Complaint: poss bowel obstruction Time Seen by Provider: 02/06/24 19:34 Related Data Home Medications ?Medication ?Instructions ?Recorded ?Confirmed atorvastatin 10 mg tablet (Lipitor) 10 mg PO QPM 07/23/23 12/08/23 ferrous sulfate 325 mg (65 mg 325 mg PO DAILY 07/23/23 12/08/23 iron) tablet (FeroSul) gabapentin 300 mg capsule 300 mg PO Q12H 07/23/23 02/06/24 isosorbide mononitrate 60 mg 60 mg PO DAILY 07/23/23 02/06/24 tablet,extended release 24 hr metformin 1,000 mg tablet 1,000 mg PO BID 07/23/23 02/06/24 metoprolol succinate 25 mg 25 mg PO DAILY 07/23/23 02/06/24 tablet,extended release 24 hr pantoprazole 20 mg tablet,delayed 20 mg PO Q12H 07/23/23 02/06/24 release polyethylene glycol 3350 17 gram 17 g PO DAILY 07/23/23 02/06/24 oral powder packet (Miralax) ranolazine 500 mg tablet,extended 500 mg PO Q12H 07/23/23 02/06/24 release,12 hr sucralfate 1 gram tablet (Carafate) 1 g PO ACHS 07/23/23 02/06/24 tamsulosin 0.4 mg capsule 0.4 mg PO Q24H 07/23/23 02/06/24 venlafaxine 150 mg 150 mg PO DAILY 07/23/23 02/06/24 capsule,extended release 24 hr insulin degludec 200 unit/mL (3 40 unit subcut .QD 12/08/23 02/06/24 mL) subcutaneous pen (Tresiba FlexTouch U-200 insulin) lisinopril 5 mg tablet 5 mg PO DAILY 12/08/23 02/06/24 losartan 50 mg tablet 50 mg PO .QD 12/08/23 02/06/24 naproxen 500 mg tablet 500 mg PO BID 12/08/23 02/06/24 sitagliptin phosphate 100 mg 100 mg PO .QD 12/08/23 02/06/24 tablet (Januvia) Allergies Allergy/AdvReac Type Severity Reaction Status Date / Time dronabinol [From Marinol] Allergy Severe Hallucinati Verified 02/06/24 19:43 ng hydromorphone [From Dilaudid] AdvReac Unknown Anaphylaxis Verified 02/06/24 19:43 [facility] Medical History (Updated 02/06/24 @ 22:20 by Franklin Madera MD) Small bowel obstruction ?K56.609 - Unspecified intestinal obstruction, unspecified as to partial versus complete obstruction (ICD-10) BPH (benign prostatic hyperplasia) ?N40.0 - Benign prostatic hyperplasia without lower urinary tract symptoms (ICD-10) GERD (gastroesophageal reflux disease) ?K21.9 - Gastro-esophageal reflux disease without esophagitis (ICD-10) Diabetic neuropathic arthropathy ?E11.610 - Type 2 diabetes mellitus with diabetic neuropathic arthropathy (ICD-10) Type 2 diabetes mellitus ?E11.9 - Type 2 diabetes mellitus without complications (ICD-10) Hypertension ?I10 - Essential (primary) hypertension (ICD-10) Surgical History H/O heart bypass surgery ?Z95.1 - Presence of aortocoronary bypass graft (ICD-10) History of bowel resection ?Z90.49 - Acquired absence of other specified parts of digestive tract (ICD-10) Hx of cholecystectomy ?Z90.49 - Acquired absence of other specified parts of digestive tract (ICD-10) Family History Father Family history of CHF (congestive heart failure) Family history of COPD (chronic obstructive pulmonary disease) Family history of cancer Family history of hypertension Grandfather Family history of diabetes mellitus Family history of myocardial infarction Mother Family history of hypertension Family history of stroke Social History Within the past year, how often did you have a drink containing alcohol: 4 or more times a week Within the past year, how many standard drinks containing alcohol did you have on a typical day: 1 or 2 Within the past year, how often did you have six or more drinks on one occasion: never Total score: 0 Score interpretation: Questions 2 and 3 are 0. It can be assumed that the patient's drinking is below the recommended limits. However, please confirm the accuracy of the patient's alcohol intake over the last few months. 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 Known occupational exposures/hazards: No Highest level of school completed/degree received: high school graduate Do you want help with school or training: No Are you now , , , , never or living with a partner: In a typical week, how many times do you talk on the telephone with family, friends, or neighbors: 3 or more times per week How often do you get together with friends or relatives: 3 or more times per week How often do you attend anabaptist or roman catholic services: never Do you belong to any clubs or organizations such as anabaptist groups unions, [employer] or athletic groups, or school groups: no Total score: 2 Score interpretation: A score of greater than or equal to 2 indicates the lowest level of social isolation. Little interest or pleasure in doing things: not at all Feeling down, depressed, or hopeless: not at all Feel stressed/tense/nervous/anxious/difficulty sleeping: not at all Due to disability, difficulty making decisions: No Do you think of yourself as: straight/heterosexual Gender Identity: male Exam Constitutional Vital Signs, click to edit/add: Last Vital Signs Temp 97.5 F L 02/06/24 19:39 Pulse 68 02/06/24 19:39 Resp 16 02/06/24 19:39 BP 152/90 H 02/06/24 22:09 Pulse Ox 95 02/06/24 22:10 O2 Del Method Room Air 02/06/24 19:39 Course Vital Signs Vital signs: Vital Signs Temperature 97.5 F L 02/06/24 19:39 Pulse Rate 68 02/06/24 19:39 Respiratory Rate 16 02/06/24 19:39 Blood Pressure 157/89 H 02/06/24 19:39 Pulse Oximetry 97 02/06/24 19:39 Oxygen Delivery Method Room Air 02/06/24 19:39 Temperature 97.5 F L 02/06/24 19:39 Pulse Rate 68 02/06/24 19:39 Respiratory Rate 16 02/06/24 19:39 Blood Pressure 152/90 H 02/06/24 22:09 Pulse Oximetry 95 02/06/24 22:10 Oxygen Delivery Method Room Air 02/06/24 19:39 MDM - Abdominal Pain MDM Narrative Medical decision making narrative: 2100: Patient was medicated with IV fluids, Toradol, Zofran. Vital signs are stable in the ER. Laboratory studies were obtained, urine specimen obtained and patient was found to have elevated lipase. CT of the abdomen and pelvis with IV contrast is pending. Case is turned over to attending physician at this time for disposition. JK 10:30pm CT scan shows small bowel obstruction. Case discussed with Dr. Ramirez. Option was given to the patient to be transferred to [facility] where his surgeon Dr. Umanzor is. The patient does not want to be transferred and prefers to be admitted here. Initially he did not want to have the NG tube placed but then change his mind and is willing to have it placed. Findings are discussed with the patient and his . Patient also has incidental noted elevated lipase of 502. Differential Diagnosis Differential diagnosis: Likely abdominal pain, constipation, diverticulitis, gastroenteritis, pancreatitis and small bowel obstruction Lab Data Labs: Lab Results 02/06/24 02/06/24 02/06/24 Range/Units 19:44 21:14 21:36 WBC 8.0 (4.0-11.0) 10^3/uL RBC 5.26 (4.70-6.10) 10^6/uL Hgb 14.4 (14.0-18.0) g/dL Hct 44.3 (42.0-54.0) % MCV 84.2 (80.0-94.0) fL MCH 27.4 (25.9-34.0) pg MCHC 32.5 (29.9-35.2) g/dL RDW 13.2 (11.0-15.0) % Plt Count 133 L (150-450) 10^3/uL MPV 9.7 (9.5-13.5) fL Neut % (Auto) 79.5 H (43.0-75.0) % Lymph % (Auto) 13.2 L (20.5-60.0) % [place] % (Auto) 5.5 (1.7-12.0) % Eos % (Auto) 1.5 (0.9-7.0) % Baso % (Auto) 0.2 (0.2-2.0) % Neut # (Auto) 6.4 (1.4-6.5) 10^3/uL Lymph # (Auto) 1.1 L (1.2-3.8) 10^3/uL [place] # (Auto) 0.4 (0.3-0.8) 10^3/uL Eos # (Auto) 0.1 (0.0-0.7) 10^3/uL Baso # (Auto) 0.0 (0.0-0.1) 10^3/uL Abs Immat Gran (auto) 0.01 (0.00-0.03) 10^3/uL Imm/Tot Granulo (auto) 0.1 (0.0-0.5) % Sodium 133 L (136-145) mmol/L Potassium 4.0 (3.5-5.1) mmol/L Chloride 95 L (98-107) mmol/L Carbon Dioxide 29.1 (21.0-32.0) mmol/L Anion Gap 12.9 BUN 10.0 (7.0-18.0) mg/dL Creatinine 1.02 (0.70-1.30) mg/dL Est GFR ( Amer) >60 (>=60) Est GFR (Non-Af Amer) >60 (>=60) BUN/Creatinine Ratio 9.8 Glucose 198 H (74-106) mg/dL Lactate 2.6 H* 1.9 (0.4-2.0) mmol/L Calcium 9.2 (8.5-10.1) mg/dL Total Bilirubin 0.5 (0.2-1.0) mg/dL AST 31 (15-37) U/L ALT 32 (16-63) U/L Alkaline Phosphatase 69 (46-116) U/L Total Protein 7.4 (6.4-8.2) g/dL Albumin 4.0 (3.4-5.0) g/dL Globulin 3.4 g/dL Albumin/Globulin Ratio 1.2 Lipase 502.0 H (16.0-77.0) U/L Urine Color Yellow (YELLOW) Urine Clarity Clear (CLEAR) Urine pH 5.5 (5.0-9.0) Ur Specific [place] 1.020 (1.005-1.025) Urine Protein Trace (NEG/TRACE) mg/dL Urine Glucose (UA) Negative (NEGATIVE) mg/dL Urine Ketones Trace A (NEGATIVE) mg/dL Urine Occult Blood Negative (NEGATIVE) Urine Nitrite Negative (NEGATIVE) Urine Bilirubin Negative (NEGATIVE) Urine Urobilinogen 0.2 (0.2-1.0) EU/dL Ur Leukocyte Esterase Negative (NEGATIVE) Imaging Data CT scan - abdomen: Radiologist's impression: ITS Impressions Abdomen/Pelvis CT 02/06/24 20:25
[2024-02-06 19:56] LABS: Basophils Percent Auto 0.2 % (0.2-2.0); Eosinophils Absolute Auto 0.1 10^3/uL (0.0-0.7); Eosinophils Percent Auto 1.5 % (0.9-7.0); Hematocrit 44.3 % (42.0-54.0); Hemoglobin 14.4 g/dL (14.0-18.0); Immature Granulocytes Abs Auto 0.01 10^3/uL (0.00-0.03); Immature Granulocytes Pct Auto 0.1 % (0.0-0.5); Lymphocytes Absolute Auto 1.1 10^3/uL (1.2-3.8); Lymphocytes Percent Auto 13.2 % (20.5-60.0); Mean Corpuscular HGB Conc 32.5 g/dL (29.9-35.2); Mean Corpuscular Hemoglobin 27.4 pg (25.9-34.0); Mean Corpuscular Volume 84.2 fL (80.0-94.0); Mean Platelet Volume 9.7 fL (9.5-13.5); Monocytes Absolute Auto 0.4 10^3/uL (0.3-0.8); Monocytes Percent Auto 5.5 % (1.7-12.0); Neutrophils Absolute Auto 6.4 10^3/uL (1.4-6.5); Neutrophils Percent Auto 79.5 % (43.0-75.0); Platelet Count 133 10^3/uL (150-450); Red Blood Count 5.26 10^6/uL (4.70-6.10); Red Cell Distribution Width 13.2 % (11.0-15.0)
[2024-02-06] MEDS: 0.9 % SODIUM CHLORIDE 1,000 ML 1000 ML IV (20:01)
[2024-02-06] MEDS: KETOROLAC TROMETHAMINE 30 MG/ML VIAL IVP (20:02)
[2024-02-06] MEDS: ONDANSETRON PF 4 MG/2 ML VIAL IV ×2 (20:03→22:06)
[2024-02-06 20:20] LABS: Alanine Aminotransferase 32 U/L (16-63); Albumin Globulin Ratio 1.2; Alkaline Phosphatase 69 U/L (46-116); Anion Gap 12.9; Aspartate Amino Transferase 31 U/L (15-37); BUN Creatinine Ratio 9.8; Bilirubin Total 0.5 mg/dL (0.2-1.0); Calcium 9.2 mg/dL (8.5-10.1); Carbon Dioxide 29.1 mmol/L (21.0-32.0); Chloride 95 mmol/L (98-107); Estimated GFR (African America >60 (>=60); Estimated GFR (Non-African Ame >60 (>=60); Globulin 3.4 g/dL; Glucose 198 mg/dL (74-106); Sodium 133 mmol/L (136-145); Total Protein 7.4 g/dL (6.4-8.2)
[2024-02-06 20:21] LABS: Lactate/Lactic Acid 2.6 mmol/L (0.4-2.0)
--- NOTE | 2024-02-06 20:25 | CT_ITS ---
[address] [place], [place] [address] Patient Name: ELSA RUTHERFORD MRN: [id number] date: 1955 Sex: M Assigned Patient Location: ER Current Patient Location: .[facility] Accession/Order Number: [id number] Exam Date: 02/06/2024 20:34 Report Date: 02/06/2024 22:11 At the request of: NISH MULLINS Procedure: CT abdomen pelvis w con EXAM: CT abdomen pelvis w con HISTORY: small bowel obstruction COMPARISON: 12/08/2023 TECHNIQUE: Dose reduction techniques were achieved by using automated exposure control and/or adjustment of mA and/or kV according to patient size and/or use of iterative reconstruction technique. CT abdomen pelvis with contrast. FINDINGS: Mild plate like atelectasis of the left lung base. Mild platelike atelectasis of the right lung base. Cyst of the inferior aspect of the right lobe of liver measuring 1.7 x 1.6 cm (). Spleen is normal. Adrenal glands are normal. Distal esophagus, stomach and duodenum are normal. Pancreatic head and pancreatic neck are normal. The pancreatic body and tail are surgically resected or atrophic. Nonobstructive calculi of the bilateral kidneys. No hydronephrosis. No hydroureter. No bladder stones. No focal bladder wall thickening. No colonic dilation. No pericolonic fat stranding. Right hemicolectomy. Ileocolic anastomosis. Dilation of the small bowel at the right lower quadrant, consistent with small bowel obstruction. Small bowel is dilated up to 3.4 cm. No retroperitoneal, pelvic or inguinal adenopathy. Small left fat-containing inguinal hernia. Cholecystectomy. Mild degeneration of the bilateral sacroiliac joints. Mild degeneration of the L4-L5 disc space. Moderate degeneration at the L4-L5 facet joints. Vertebral body height is preserved. No acute osseous abnormality. CT/CT abdomen pelvis w con IMPRESSION: 1. Dilation of the small bowel loops of the right lower quadrant, consistent with small bowel obstruction. The small bowel bowel loops are dilated up to 3.4 cm. 2. Right hemicolectomy. 3. Nonobstructive stones of the bilateral kidneys. 4. Cholecystectomy. Electronically authenticated by: LISA WORRELL Date: 02/06/2024 22:11
[2024-02-06 21:28] LABS: Bilirubin Urine NEGATIVE (NEGATIVE); Blood Urine NEGATIVE (NEGATIVE); Clarity Urine CLEAR (CLEAR); Color Urine YELLOW (YELLOW); Glucose Urine UA NEGATIVE (NEGATIVE); Ketones Urine TRACE mg/dL (NEGATIVE); Leukocyte Esterase Urine NEGATIVE (NEGATIVE); Nitrite Urine NEGATIVE (NEGATIVE); Protein Urine TRACE mg/dL (NEG/TRACE); Urine Microscopic Indicated NO; Urobilinogen Urine 0.2 EU/dL (0.2-1.0); pH Urine 5.5 (5.0-9.0)
[2024-02-06 21:58] LABS: Lactate/Lactic Acid 1.9 mmol/L (0.4-2.0)
[2024-02-06] MEDS: 0.9 % SODIUM CHLORIDE 1,000 ML 125 ML IV (23:10)
--- OUTSIDE RECORDS SUMMARY | 2024-02-06 23:14 | XMS_ITS | CCD ---
Author Organization [facility] ion [facility] Care Team Providers Care Flower Grower Name Role Phone COOPERRIDER II, JATIN H [...] ARMIJO Attending Unavailable NEHEMIAS LINCOLN Admitting Unavailable FLORINEREBailey, NIKUNJ Primary Care Unavailable VINCENT DIAZ Referring Unavailable LAZARO PICKARD Attending Unavailable LAZARO PICKARD Attending Unavailable DELIA PICKARDIN Admitting Unavailable DELIA PICKARDIN Referring Unavailable KOURTNEY ., DR MILLAN Consulting Unavailable NADAUSTYN, DR NIKUNJ Fuentes Attending Unavailable NADEREBailey, DR NIKUNJ Fuentes Primary Care Unavailable NADEREBailey, DR NIKUNJ Fuentes Admitting Unavailable NADEREBailey, DR NIKUNJ Fuentes Consulting Unavailable GRECHNY ., JUAN MIGUEL MOCK Consulting Unavailabl e RYLAN YADAV Consulting Unavailable MARY RODRIGUEZ Consulting Unavailable GRISEL LOU Consulting Unavailable MARTA COLEMAN Consulting Unavailable JAMEY .NATO Consulting Unavailable ABEL, DE PAZ H Attending Unavailable ABEL, DE PAZ H Admitting Unavailable AMY, DR SHAUNA Avalos Consulting Unavailable NADAUSTYN, DR NIKUNJ Fuentes Primary Care Unavailable MARKER ., DR NAIDU Consulting Unavailable NILL ., DR LOZANO Consulting Unavailable FAWWAD, DE PAZ H Consulting Unavailable CRISTAL MI Consulting Unavailable CHANO ALFARO Consulting Unavailab MONTY Canchola Consulting Unavailable MELISSA ., ROBBY Consulting Unavailable CLARIBEL, LYLY Consulting Unavailable SERGIO, CONSTANTINO Consulting Unavailable JESSE VO Consulting Unavailable KAMALJIT, DR NIKUNJ Fuentes Primary Care Unavailable TAIWO, DR DESTINY Doyle Attending Unavailabl e TAIWO, DR DESTINY Doyle Consulting Unavailabl e TAIWO, DR DESTINY Doyle Admitting Unavailabl e MARY HOGAN Consulting Unavailable Marta ZULUAGA Attending Unavailable Kamaljit GARSIA, Nikunj Primary Care Provider Nikunj Mari MD Primary Care Provider Fred Chao Attending Unavailable Fred Chao Admitting Unavailable Nikunj Mari Primary Care Unavailable LEO CHAVARRIA Attending Unavailable NIKUNJ MARI Primary Care UnavailLEO Hess Referring Unavailable NIKUNJ MARI Primary Care UnavailNISH Paez Attending Unavailable NIKUNJ MARI Attending Unavailable Allergies Allergy Classification Reported Allergen(s) Allergy Type Date of Onset Reaction(s) Facility (2 sources) HYDROmorphone; Translations: [HYDROMORPHONE (BULK)] Drug Allergy 06-19-20 17 [facility] Repository (7 sources) tetrahydrocannabi nol; Translations: [DRONABINOL] Drug Allergy 08-27-20 14 Hallucinations , Unknown [facility] Repository (6 sources) dronabinol; Translations: [Marinol] Drug Allergy [facility] [employer] [address] DO Work Phone: (9 sources) HYDROmorphone; Translations: [Dilaudid] Drug Allergy 06-19-20 17 Anaphylaxis, Unknown [facility] [employer] [address] DO Work Phone: (2 sources) dronabinol Drug Allergy 10-04-19 14 [facility] Repository (3 sources) HYDROmorphone; Translations: [HYDROMORPHONE] Drug Allergy 12-21-19 16 [facility] Repository (1 source) HYDROmorphone Drug Allergy 12-28-19 16 [facility] Repository (2 sources) Angiotensin-conve rting enzyme inhibitor agent; Translations: [JACKI INHIBITORS] Drug Intolerance 11-06-19 24 [place] Work Phone: (1 source) HYDROmorphone Drug Allergy 11-18-19 [facility] Repository Medications Current Medications Medication Drug [...] complication, with long-term current use of insulin (CMS/HCC) TAKE 1 TABLET TWICE A DAY 180 [...] 10/11/2021 Active omega-3 fatty acids-fish oil (One-Per-Day Quincy-3) 684-1,200 mg capsule (1 source) omega-3 fatty acids-fish oil (One-Per-Day Quincy-3) 684-1,200 mg capsule Take 1 capsule (1,200 [...] 0 Refills: 0 Ordered: 11-Oct-2021 DO Active Quincy 3 CAPS (6 sources) Quincy 3 CAPS Maxwell e 1 capsule twice [...] disease (2 sources) 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; Translations: [Old [...] UNSPECIFIED] Onset: 3 Other aftercare (1 source) emt intermediate (current) use of aspirin; Translations: [CARE HOME 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 ASPIRIN] Onset: 3 Episodic Other aftercare (1 source) Other fdc (current) drug therapy; Translations: [OTH CARE HOME CURRENT DRUG THERAPY] Onset: 3 Episodic Other aftercare (1 source) jail (current) use of insulin; Translations: [CARE HOME 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 INSULIN] Onset: 3 Episodic Other aftercare (1 source) jail (current) use of oral hypoglycemic drugs; Translations: [CARE HOME USE ORAL HYPOGLYCEMIC DX] Onset: 3 Episodic [...] Test Name Value Interpretation Reference Range Facility LIPID PANEL, STANDARDon 04-0 Cholesterol [Mass/Vol] 149 mg/dL Normal <200 [facility] Comment on above: Order Comment: FASTI NG:YES FASTING: YES Performed By: #### 7 600 #### [facility] [address], [address] [place] [address] Gun Fertilizer: Ck Jarvis MD Cholesterol in HDL [Mass/Vol] 44 mg/dL Normal > OR = 40 [facility] Comment on above: Order Comment: FASTI NG:YES FASTING: YES Performed By: #### 7 600 #### [facility] [address], [address] [place] [address] Gun Fertilizer: Ck Jarvis MD Cholesterol in LDL [Mass/Vol] 77 mg/dL Normal [facility] Comment on above: Order Comment: FASTI NG:YES FASTING: YES Result Comment: Refe rence range: <100 Desirable range <100 mg/dL for primary prevention; <70 mg/dL for patients with CHD or diabetic patients with > or = 2 CHD risk factors. LDL-C is now calculated using the Wang calculation, which is a validated novel method providing better accuracy than the Friedewald equation in the estimation of LDL-C. Ramy HERNANDEZ et al. GENIA. 2013;310(19): 9389-8009 (http://education.Tellme.[employer]/faq/NNT561) Performed By: #### 7 600 #### [facility] [address], [address] [place] [address] Gun Fertilizer: Ck Jarvis MD Cholesterol.total/C holesterol in HDL [Mass ratio] 3.4 {ratio} Normal <5.0 [facility] Comment on above: Order Comment: FASTI NG:YES FASTING: YES Performed By: #### 7 600 #### [facility] [address], [address] [place] [address] Gun Fertilizer: Ck Jarvis MD NON HDL CHOLESTEROL 105 mg/dL (calc) Normal <130 [facility] Comment on above: Order Comment: FASTI NG:YES FASTING: YES Result Comment: For patients with diabetes plus 1 major ASCVD risk factor, treating to a non-HDL-C goal of <100 mg/dL (LDL-C of <70 mg/dL) is considered a therapeutic option. Your request to have a duplicate copy faxed has been acknowledged. Queued to: [phone] Performed By: #### 7 600 #### [facility] [address], [address] [place] [address] Gun Fertilizer: Ck Jarvis MD Triglyceride [Mass/Vol] 189 mg/dL High <150 [facility] Comment on above: Order Comment: FASTI NG:YES FASTING: YES Performed By: #### 7 600 #### [facility] [address], [address] [place] [phone] Gun Fertilizer: Ck Jarvis MD XR shoulder RT min 2V*on XR shoulder RT min 2V* [facility] Main [place] [address] [place] [address] XRay Report Signed Patient: Elsa Espinoza MR#: [id number] : 1955 Acct:[id number] Age/Sex: 68 / M ADM Date: 11/18/23 Loc: [facility] Room: Type: [facility] Attending Dr: Fred Chao DO Copies [...] PROCESS. Impression dictated by: Amaury Deshpande Jr., DElinorOElinor11/18/2023 4:35 PM Dictation Location: [place] [address] Transcribed By: [facility] 11/18/23 163 Dictated By: Amaury Deshpande Jr, DO 11/18/23 163 Signed By: 11/18/23 1635 [facility] No Panel Informationon 10-21 [facility] Consultation Noteon 01-11-20 Consultation Note [id number]:[id number] [facility] CBC AUTO DIFFon 01-05-2023 BASO # 0.0 103/ul Normal 0.0-0.1 [facility] Comment on above: Performed By: #### C VDTBH #### [facility] [address] [place] [address] Dr. Miladys Samuel Basophils/100 WBC (Bld) 0.6 % Normal 0.2-2.0 [facility] Comment on above: Performed By: #### C VDTBH #### [facility] [address] [place] [address] Dr. Miladys Samuel EO # 0.2 103/ul Normal 0.0-0.7 [facility] Comment on above: Performed By: #### C VDTBH #### [facility] [address] [place] [address] Dr. Miladys Samuel Eosinophils/100 WBC (Bld) 4.2 % Normal 0.9-7.0 [facility] Comment on above: Performed By: #### C VDTBH #### [facility] [address] [place] [address] Dr. Miladys Samuel Erythrocyte distribution width (RBC) [Ratio] 13.5 % Normal 11.0-15.0 [facility] Comment on above: Performed By: #### C VDTBH #### [facility] [address] [place] [address] Dr. Miladys Samuel Hematocrit (Bld) [Volume fraction] 40.0 % Critically low 42.0-54.0 [facility] Comment on above: Performed By: #### C VDTBH #### [facility] [address] [place] [address] Dr. Miladys Samuel Hemoglobin (Bld) [Mass/Vol] 12.9 g/dL Critically low 14.0-18.0 [facility] Comment on above: Performed By: #### C VDTBH #### [facility] [address] [place] [address] Dr. Miladys Samuel IG # 0.01 10e3/ul Normal 0.00-0.03 [facility] Comment on above: Performed By: #### C VDTBH #### [facility] [address] [place] [address] [address] Miladys Samuel IG % 0.3 % Normal 0.0-0.5 [facility] Comment on above: Performed By: #### C VDTBH #### [facility] [address] [place] [address] [address] Miladys Samuel LYMPH # 0.7 103/ul Critically low 1.2-3.8 [facility] Comment on above: Performed By: #### C VDTBH #### [facility] [address] [place] [address] [address] Miladys Samuel Lymphocytes/100 WBC (Bld) 19.5 % Critically low 20.5-60.0 [facility] Comment on above: Performed By: #### C VDTBH #### [facility] [address] [place] [address] Dr. Miladys Samuel MANUAL DIFF REQ NO Normal The [facility] Comment on above: Performed By: #### C VDTBH #### [facility] [address] [place] [address] Dr. Miladys Samuel MCH (RBC) [Entitic mass] 27.6 pg Normal 25.9-34.0 [facility] Comment on above: Performed By: #### C VDTBH #### [facility] [address] [place] [address] Dr. Miladys Samuel MCHC (RBC) [Mass/Vol] 32.3 g/dL Normal 29.9-35.2 [facility] Comment on above: Performed By: #### C VDTBH #### [facility] [address] [place] [address] Dr. Miladys Samuel MCV (RBC) [Entitic vol] 85.7 fL Normal 80.0-94.0 [facility] Comment on above: Performed By: #### C VDTBH #### [facility] [address] [place] [address] Dr. Miladys Samuel MONO # 0.4 103/ul Normal 0.3-0.8 [facility] Comment on above: Performed By: #### C VDTBH #### [facility] [address] [place] [address] [address] Miladys Samuel Monocytes/100 WBC (Bld) 10.3 % Normal 1.7-12.0 [facility] Comment on above: Performed By: #### C VDTBH #### [facility] [address] [place] [address] [address] Miladys Samuel NEUT # 2.3 103/ul Normal 1.4-6.5 [facility] Comment on above: Performed By: #### C VDTBH #### [facility] [address] [place] [address] [address] Miladys Samuel Neutrophils/100 WBC (Bld) 65.1 % Normal 43.0-75.0 [facility] Comment on above: Performed By: #### C VDTBH #### [facility] [address] [place] [address] Dr. Miladys Samuel Platelet mean volume (Bld) [Entitic vol] 10.1 fL Normal 9.5-13.5 [facility] Comment on above: Performed By: #### C VDTBH #### [facility] [address] [place] [address] [address] Miladys Samuel PLT 103 103/ul Critically low 150-450 [facility] Comment on above: Performed By: #### C VDTBH #### [facility] [address] [place] [address] Dr. Miladys Samuel RBC 4.67 106/ul Critically low 4.70-6.10 [facility] Comment on above: Performed By: #### C VDTBH #### [facility] [address] [place] [address] Dr. Miladys Samuel WBC 3.6 103/ul Critically low 4.0-11.0 [facility] Comment on above: Performed By: #### C VDTBH #### [facility] [address] [place] [address] Dr. Miladys Samuel GLYCOHEMOGLOBIN A1Con 2022 ADA RECOMMENDATION SEE BELOW Normal [facility] Comment on above: Result Comment: ADA RECOMMENDED LIMIT 4.0 - 6.0 ADA THERAPEUTIC TARGET < 7.0 ACTION SUGGESTED > 7.0 Performed By: #### C VDTBH #### [facility] [address] [place] [address] Dr. Miladys Samuel Glucose [Mass/Vol] 194 mg/dL Normal [facility] Comment on above: Performed By: #### C VDTBH #### [facility] [address] [place] [address] Dr. Miladys Samuel HbA1c (Bld) [Mass fraction] 8.4 % Critically high 4.5-6.2 [facility] Comment on above: Performed By: #### C VDTBH #### [facility] [address] [place] [address] Dr. Miladys Samuel MAGNESIUMon 01-05-2023 Magnesium [Mass/Vol] 1.8 mg/dL Normal 1.8-2.4 [facility] Comment on above: Performed By: #### A MY #### [facility] [address] [place] [address] Dr. Miladys Samuel POINT OF CARE GLUCOSEon 12-09 Glucose [Mass/Vol] 253 mg/dL Critically high 74-106 [facility] Comment on above: Performed By: #### A MY #### [facility] [address] [place] [address] Dr. Miladys Samuel PROF CHEM 8 (BAS METB)on Anion gap [Moles/Vol] 9.1 mmol/L Normal [facility] Comment on above: Performed By: #### A MY #### [facility] [address] [place] [address] Dr. Miladys Samuel Calcium [Mass/Vol] 8.2 mg/dL Critically low 8.5-10.1 [facility] Comment on above: Performed By: #### A MY #### [facility] [address] [place] [address] Dr. Miladys Samuel Chloride [Moles/Vol] 106 mmol/L Normal 98-107 [facility] Comment on above: Performed By: #### A MY #### [facility] [address] [place] [address] [address] Miladys Samuel CO2 [Moles/Vol] 30.1 mmol/L Normal 21.0-32.0 [facility] Comment on above: Performed By: #### A MY #### [facility] [address] [place] [address] Dr. Miladys Samuel Creatinine [Mass/Vol] 1.00 mg/dL Normal 0.70-1.30 [facility] Comment on above: Performed By: #### A MY #### [facility] [address] [place] [address] Dr. Miladys Samuel EGFR-AF [place] ISLANDER >60 Normal >=60 [facility] Comment on above: Performed By: #### A MY #### [facility] [address] [place] [address] Dr. Miladys Samuel EGFR-NON AF [place]ER >60 Normal >=60 [facility] Comment on above: Performed By: #### A MY #### [facility] [address] [place] [address] [address] Miladys Samuel Glucose [Mass/Vol] 117 mg/dL Critically high 74-106 T [facility] Comment on above: Performed By: #### A MY #### [facility] [address] [place] [address] Dr. Miladys Samuel Potassium [Moles/Vol] 4.2 mmol/L Normal 3.5-5.1 [facility] Comment on above: Performed By: #### A MY #### [facility] [address] [place] [address] [address] Miladys Samuel Sodium [Moles/Vol] 141 mmol/L Normal 136-145 [facility] Comment on above: Performed By: #### A MY #### [facility] [address] [place] [address] Dr. Miladys Samuel Urea nitrogen [Mass/Vol] 9.0 mg/dL Normal 7.0-18.0 [facility] Comment on above: Performed By: #### A MY #### [facility] [address] [place] [address] Dr. Miladys Samuel Urea nitrogen/Creatinine [Mass ratio] 9.0 mg/mg Normal [facility] Comment on above: Performed By: #### A MY #### [facility] [address] [place] [address] Dr. Miladys Samuel XR ABD FLAT UP_PA [...] MONTY CHANEL Date: 2023-01-05 07:10 Normal [facility] CBC AUTO DIFFon 01-04-2023 BASO # 0.0 103/ul Normal 0.0-0.1 [facility] Comment on above: Performed By: #### L ACT #### [facility] [address] [place] [address] [address] Miladys Samuel Basophils/100 WBC (Bld) 0.3 % Normal 0.2-2.0 [facility] Comment on above: Performed By: #### L ACT #### [facility] [address] [place] [address] Dr. Miladys Samuel EO # 0.1 103/ul Normal 0.0-0.7 [facility] Comment on above: Performed By: #### L ACT #### [facility] [address] [place] [address] Dr. Miladys Samuel Eosinophils/100 WBC (Bld) 0.9 % Normal 0.9-7.0 [facility] Comment on above: Performed By: #### L ACT #### [facility] [address] [place] [address] Dr. Miladys Samuel Erythrocyte distribution width (RBC) [Ratio] 13.7 % Normal 11.0-15.0 [facility] Comment on above: Performed By: #### L ACT #### [facility] [address] [place] [address] Dr. Miladys Samuel Hematocrit (Bld) [Volume fraction] 41.2 % Critically low 42.0-54.0 [facility] Comment on above: Performed By: #### L ACT #### [facility] [address] [place] [address] Dr. Miladys Samuel Hemoglobin (Bld) [Mass/Vol] 13.7 g/dL Critically low 14.0-18.0 [facility] Comment on above: Performed By: #### L ACT #### [facility] [address] [place] [address] Dr. Miladys Samuel IG # 0.02 10e3/ul Normal 0.00-0.03 [facility] Comment on above: Performed By: #### L ACT #### [facility] [address] [place] [address] Dr. Miladys Samuel IG % 0.3 % Normal 0.0-0.5 [facility] Comment on above: Performed By: #### L ACT #### [facility] [address] [place] [address] [address] Miladys Samuel LYMPH # 0.6 103/ul Critically low 1.2-3.8 [facility] Comment on above: Performed By: #### L ACT #### [facility] [address] [place] [address] Dr. Miladys Samuel Lymphocytes/100 WBC (Bld) 9.9 % Critically low 20.5-60.0 [facility] Comment on above: Performed By: #### L ACT #### [facility] [address] [place] [address] Dr. Miladys Samuel MANUAL DIFF REQ NO Normal [facility] Comment on above: Performed By: #### L ACT #### [facility] [address] [place] [address] Dr. Miladys Samuel MCH (RBC) [Entitic mass] 28.0 pg Normal 25.9-34.0 [facility] Comment on above: Performed By: #### L ACT #### [facility] [address] [place] [address] Dr. Miladys Samuel MCHC (RBC) [Mass/Vol] 33.3 g/dL Normal 29.9-35.2 [facility] Comment on above: Performed By: #### L ACT #### [facility] [address] [place] [address] Dr. Miladys Samuel MCV (RBC) [Entitic vol] 84.1 fL Normal 80.0-94.0 [facility] Comment on above: Performed By: #### L ACT #### [facility] [address] [place] [address] Dr. Miladys Samuel MONO # 0.6 103/ul Normal 0.3-0.8 [facility] Comment on above: Performed By: #### L ACT #### [facility] [address] [place] [address] Dr. Miladys Samuel Monocytes/100 WBC (Bld) 9.3 % Normal 1.7-12.0 [facility] Comment on above: Performed By: #### L ACT #### [facility] [address] [place] [address] [address] Miladys Samuel NEUT # 5.1 103/ul Normal 1.4-6.5 [facility] Comment on above: Performed By: #### L ACT #### [facility] [address] [place] [address] [address] Miladys Samuel Neutrophils/100 WBC (Bld) 79.3 % Critically high 43.0-75.0 [facility] Comment on above: Performed By: #### L ACT #### [facility] [address] [place] [address] [address] Miladys Samuel Platelet mean volume (Bld) [Entitic vol] 9.9 fL Normal 9.5-13.5 [facility] Comment on above: Performed By: #### L ACT #### [facility] [address] [place] [address] [address] Miladys Samuel PLT 126 103/ul Critically low 150-450 [facility] Comment on above: Performed By: #### L ACT #### [facility] [address] [place] [address] [address] Miladys Samuel RBC 4.90 106/ul Normal 4.70-6.10 [facility] Comment on above: Performed By: #### L ACT #### [facility] [address] [place] [address] [address] Miladys Samuel WBC 6.5 103/ul Normal 4.0-11.0 [facility] Comment on above: Performed By: #### L ACT #### [facility] [address] [place] [address] [address] Miladys aSmuel MAGNESIUMon 01-04-2023 Magnesium [Mass/Vol] 2.6 mg/dL Critically high 1.8-2.4 [facility] Comment on above: Performed By: #### M G, BMP, PHOS ####[facility] [address] [place] [address]Dr. Miladys Samuel PHOSPHORUSon 01-04-2023 Phosphate [Mass/Vol] 5.5 mg/dL Critically high 2.6-4.7 [facility] Comment on above: Performed By: #### OTTONIEL Blanco, PHOS ####[facility] [address] [place] [address]Dr. Miladys Samuel POINT OF CARE GLUCOSEon 12-09 Glucose [Mass/Vol] 167 mg/dL Critically high 74-106 [facility] Comment on above: Performed By: #### P OCGLUC ####[facility] [address] [place] [address]Dr. Miladys Samuel Glucose [Mass/Vol] 118 mg/dL Critically high 74-106 [facility] Comment on above: Performed By: #### P OCGLUC ####[facility] [address] [place] [address] [place], [place] [address]Dr. Cecilleearnest Samuel PROF CHEM 8 (BAS METB)on Anion gap [Moles/Vol] 15.7 mmol/L Normal [facility] Comment on above: Performed By: #### OTTONIEL Blanco, PHOS ####[facility] [address] [place], [place] [address]Dr. Miladys Samuel Calcium [Mass/Vol] 8.8 mg/dL Normal 8.5-10.1 [facility] Comment on above: Performed By: #### OTTONIEL Blanco, PHOS ####[facility] [address] [place] [address]Dr. Miladys Samuel Chloride [Moles/Vol] 99 mmol/L Normal 98-107 [facility] Comment on above: Performed By: #### OTTONIEL Blanco, PHOS ####[facility] [address] [place] [address]Dr. Cecilleearnest Samuel CO2 [Moles/Vol] 28.8 mmol/L Normal 21.0-32.0 [facility] Comment on above: Performed By: #### OTTONIEL Blanco, PHOS ####[facility] [address] [place] [address]Dr. Miladys Samuel Creatinine [Mass/Vol] 0.98 mg/dL Normal 0.70-1.30 [facility] Comment on above: Performed By: #### OTTONIEL Blanco, PHOS ####[facility] [address] [place] [id number]. Miladys Samuel EGFR-AF [place]ER >60 Normal >=60 [facility] Comment on above: Performed By: #### M OTTONIEL Doyle, PHOS ####[facility] [address] [place] [id number]. Miladys Samuel EGFR-NON AF [place]ER >60 Normal >=60 [facility] Comment on above: Performed By: #### M OTTONIEL Doyle, PHOS ####[facility] [address] [place] [id number]. Cecilleearnest Samuel Glucose [Mass/Vol] 153 mg/dL Critically high 74-106 [facility] Comment on above: Performed By: #### OTTONIEL Blanco, PHOS ####[facility] [address] [place] [address]Dr. Miladys Samuel Potassium [Moles/Vol] 4.5 mmol/L Normal 3.5-5.1 [facility] Comment on above: Performed By: #### OTTONIEL Blanco, PHOS ####[facility] [address] [place] [address]Dr. Miladys Samuel Sodium [Moles/Vol] 139 mmol/L Normal 136-145 [facility] Comment on above: Performed By: #### OTTONIEL Blanco, PHOS ####[facility] [address] [place] [address]Dr. Miladys Jimmie Urea nitrogen [Mass/Vol] 15.0 mg/dL Normal 7.0-18.0 [facility] Comment on above: Performed By: #### OTTONIEL Blanco, PHOS ####[facility] [address] [place] [address]Dr. Cecilleearnest Jimmie Urea nitrogen/Creatinine [Mass ratio] 15.3 mg/mg Normal [facility] Comment on above: Performed By: #### M OTTONIEL Doyle, PHOS ####[facility] [address]fr[address] [place] [address]Dr. Cecilleearnest Samuel XR ABD FLAT UP_PA Bird 01-04 [...] SHAUNA REYES Date: 2023-01-04 08:37 Normal [facility] XR KUB 1 VIEWon 01-04-2023 XR KUB [...] CRISTAL MI Date: 2023-01-04 00:40 Normal [facility] XR SMALL BOWELon 01-04-2023 XR SMALL BOWEL [...] JESSE VO Date: 2023-01-04 17:36 Normal [facility] CBC AUTO DIFFon 01-03-2023 BASO # 0.0 103/ul Normal 0.0-0.1 [facility] Comment on above: Performed By: #### C BC ####[facility] [address] [place] [address]Dr. Miladys Jimmie Basophils/100 WBC (Bld) 0.1 % Critically low 0.2-2.0 [facility] Comment on above: Performed By: #### C BC ####[facility] [address]czy[address] [place], [place] [address]Dr. Miladys Samuel EO # 0.0 103/ul Normal 0.0-0.7 [facility] Comment on above: Performed By: #### C BC ####[facility] [address] [place], [place] [address]Dr. Cecilleearnest Samuel Eosinophils/100 WBC (Bld) 0.5 % Critically low 0.9-7.0 [facility] Comment on above: Performed By: #### C BC ####[facility] [address] [place], [place] [address]Dr. Cecilleearnest Samuel Erythrocyte distribution width (RBC) [Ratio] 13.3 % Normal 11.0-15.0 [facility] Comment on above: Performed By: #### C BC ####[facility] [address]ml[address] [place], [place] [address]Dr. Miladys Samuel Hematocrit (Bld) [Volume fraction] 41.3 % Critically low 42.0-54.0 [facility] Comment on above: Performed By: #### C BC ####[facility] R[address] [place], [place] [address]Dr. Miladys Jimmie Hemoglobin (Bld) [Mass/Vol] 13.8 g/dL Critically low 14.0-18.0 [facility] Comment on above: Performed By: #### C BC ####[facility] [address] [place], [place] [address]Dr. Miladys Samuel IG # 0.03 10e3/ul Normal 0.00-0.03 [facility] Comment on above: Performed By: #### C BC ####[facility] Qbmp[address] [place], [place] [address]Dr. Miladys Samuel IG % 0.4 % Normal 0.0-0.5 [facility] Comment on above: Performed By: #### C BC ####[facility] [address]qexxxfm[address] [place] [address]Dr. Cecilleearnest Jimmie LYMPH # 0.7 103/ul Critically low 1.2-3.8 [facility] Comment on above: Performed By: #### C BC ####[facility] [address] [place] [address]Dr. Miladys Samuel Lymphocytes/100 WBC (Bld) 9.2 % Critically low 20.5-60.0 [facility] Comment on above: Performed By: #### C BC ####[facility] Got[address]saro[address] [place] [address]Dr. Miladys Samuel MANUAL DIFF REQ NO Normal [facility] Comment on above: Performed By: #### C BC ####[facility] [address]ubrhdmf[address] [place] [address]Dr. Miladys Samuel MCH (RBC) [Entitic mass] 27.9 pg Normal 25.9-34.0 [facility] Comment on above: Performed By: #### C BC ####[facility] [address]ts[address] [place], [place] [address]Dr. Cecilleearnest Samuel MCHC (RBC) [Mass/Vol] 33.4 g/dL Normal 29.9-35.2 [facility] Comment on above: Performed By: #### C BC ####[facility] [address]cgrpb[address] [place] [address]Dr. Miladys Samuel MCV (RBC) [Entitic vol] 83.6 fL Normal 80.0-94.0 [facility] Comment on above: Performed By: #### C BC ####[facility] Swcs[address] [place], [place] [address]Dr. Miladys Samuel MONO # 0.4 103/ul Normal 0.3-0.8 [facility] Comment on above: Performed By: #### C BC ####[facility] [address] [place] [address]Dr. Miladys Samuel Monocytes/100 WBC (Bld) 5.7 % Normal 1.7-12.0 [facility] Comment on above: Performed By: #### C BC ####[facility] [address] [place] [address]Dr. Miladys Samuel NEUT # 6.5 103/ul Normal 1.4-6.5 [facility] Comment on above: Performed By: #### C BC ####[facility] [address] [place] [address]Dr. Miladys Samuel Neutrophils/100 WBC (Bld) 84.1 % Critically high 43.0-75.0 [facility] Comment on above: Performed By: #### C BC ####[facility] [address] [place] [address]Dr. Miladys Samuel Platelet mean volume (Bld) [Entitic vol] 9.9 fL Normal 9.5-13.5 [facility] Comment on above: Performed By: #### C BC ####[facility] [address] [place] [address]Dr. Miladys Samuel PLT 130 103/ul Critically low 150-450 [facility] Comment on above: Performed By: #### C BC ####[facility] [address] [place] [address]Dr. Miladys Samuel RBC 4.94 106/ul Normal 4.70-6.10 [facility] Comment on above: Performed By: #### C BC ####[facility] [address] [place] [address]Dr. Miladys Samuel WBC 7.7 103/ul Normal 4.0-11.0 [facility] Comment on above: Performed By: #### C BC ####[facility] [address] [place] [address]. Milad[address] CT ABD/PELV W CONon 01-04-20 [...] by: CONSTANTINO HILL Date: 2023-01-03 21:05 Normal [facility] LIPASEon 01-03-2023 Lipase [Catalytic activity/Vol] 80.0 U/L Normal 73.0-393.0 [facility] Comment on above: Performed By: #### C VDTBH #### [facility] [address] [place] [address] Dr. Miladys Samuel LIVER PROFILEon 01-03-2023 Albumin [Mass/Vol] 4.1 g/dL Normal 3.4-5.0 [facility] Comment on above: Performed By: #### C VDTBH #### [facility] [address] [place] [address] Dr. Miladys Samuel Albumin/Globulin [Mass ratio] 1.3 {ratio} Normal [facility] Comment on above: Performed By: #### C VDTBH #### [facility] [address] [place] [address] Dr. Miladys Samuel ALP [Catalytic activity/Vol] 61 U/L Normal 46-116 [facility] Comment on above: Performed By: #### C VDTBH #### [facility] [address] [place] [address] Dr. Miladys Samuel ALT [Catalytic activity/Vol] 35 U/L Normal 16-63 [facility] Comment on above: Performed By: #### C VDTBH #### [facility] [address] [place] [address] Dr. Miladys Samuel AST [Catalytic activity/Vol] 28 U/L Normal 15-37 [facility] Comment on above: Performed By: #### C VDTBH #### [facility] [address] [place] [address] Dr. Miladys Samuel BILI, CONJUGATED 0.1 mg/dL Normal 0.0-0.2 [facility] Comment on above: Performed By: #### C VDTBH #### [facility] [address] [place] [address] Dr. Miladys Samuel Bilirubin [Mass/Vol] 0.5 mg/dL Normal 0.2-1.0 [facility] Comment on above: Performed By: #### C VDTBH #### [facility] [address] [place] [address] Dr. Miladys Samuel Globulin (S) [Mass/Vol] 3.2 g/dL Normal [facility] Comment on above: Performed By: #### C VDTBH #### [facility] [address] [address] [address] Miladys Samuel Protein [Mass/Vol] 7.3 g/dL Normal 6.4-8.2 [facility] Comment on above: Performed By: #### C VDTBH #### [facility] [address] [address] [address] Miladys Samuel MAGNESIUMon 01-03-2023 Magnesium [Mass/Vol] 1.4 mg/dL Critically low 1.8-2.4 [facility] Comment on above: Performed By: #### M G ####[facility] [address] [place] [address]Dr. Miladys Samuel PROF CHEM 8 (BAS METB)on Anion gap [Moles/Vol] 12.9 mmol/L Normal [facility] Comment on above: Performed By: #### C VDTBH #### [facility] [address] [place] [address] Dr. Miladys Samuel Calcium [Mass/Vol] 9.7 mg/dL Normal 8.5-10.1 [facility] Comment on above: Performed By: #### C VDTBH #### [facility] [address] [place] [address] Dr. Miladys Samuel Chloride [Moles/Vol] 99 mmol/L Normal 98-107 [facility] Comment on above: Performed By: #### C VDTBH #### [facility] [address] [place] [address] Dr. Miladys Samuel CO2 [Moles/Vol] 28.3 mmol/L Normal 21.0-32.0 [facility] Comment on above: Performed By: #### C VDTBH #### [facility] [address] [place] [address] Dr. Miladys Samuel Creatinine [Mass/Vol] 1.10 mg/dL Normal 0.70-1.30 [facility] Comment on above: Performed By: #### C VDTBH #### [facility] [address] [address] [address] Miladys Samuel EGFR-AF [place] ISLANDER >60 Normal >=60 [facility] Comment on above: Performed By: #### C VDTBH #### [facility] [address] [address] [address] Miladys Samuel EGFR-NON AF [place]ER >60 Normal >=60 [facility] Comment on above: Performed By: #### C VDTBH #### [facility] [address] [address] [address] Miladys Samuel Glucose [Mass/Vol] 155 mg/dL Critically high 74-106 [facility] Comment on above: Performed By: #### C VDTBH #### [facility] [address] [place] [address] Dr. Miladys Samuel Potassium [Moles/Vol] 4.2 mmol/L Normal 3.5-5.1 [facility] Comment on above: Performed By: #### C VDTBH #### [facility] [address] [address] [address] Miladys Samuel Sodium [Moles/Vol] 136 mmol/L Normal 136-145 [facility] Comment on above: Performed By: #### C VDTBH #### [facility] [address] [place] [address] Dr. Miladys Samuel Urea nitrogen [Mass/Vol] 13.0 mg/dL Normal 7.0-18.0 [facility] Comment on above: Performed By: #### C VDTBH #### [facility] [address] [place] [address] Dr. Miladys Samuel Urea nitrogen/Creatinine [Mass ratio] 11.8 mg/mg Normal [facility] Comment on above: Performed By: #### C VDTBH #### [facility] [address] [address] [address] Miladys Samuel PROTIMEon 01-03-2023 INR Coag (PPP) [Relative time] 1.04 {INR} Normal [facility] Comment on above: Performed By: #### P TT, PT #### [facility] [address] [place] [address] Dr. Miladys Samuel INR GUIDELINES SEE BELOW Normal [facility] Comment on above: Result Comment: BRITTA RED INR: 2.0 - 3.0 CONDITIONS NOT LISTED BELOW 2.5 - 3.5 FOR PROSTHETIC HEART VALVE REPLACEMENT 2.5 - 3.5 RECURRENT THROMBOSIS Performed By: #### P TT, PT #### [facility] [address] [place] [address] Dr. Miladys Samuel PT Coag (PPP) [Time] 11.0 s Normal 9.0-11.6 [facility] Comment on above: Performed By: #### P TT, PT #### [facility] [address] [place] [address] Dr. Miladys Samuel PTTon 01-03-2023 aPTT Coag (Bld) [Time] 28.3 s Normal 22.3-36.2 [facility] Comment on above: Performed By: #### P TT, PT #### [facility] [address] [place] [address] Dr. Miladys Samuel TROPONIN, HIGH SENSITIVITYon 01-03-2023 HSTROP 8.0 pg/mL Normal 4.0-76.1 [facility] Comment on above: Result Comment: CUT- OFF POINTS HAVE BEEN ESTABLISHED BASED ON THE FOURTH UNIVERSAL DEFINITIONS OF MYOCARDIAL INFARCTION. THE UPPER REFERENCE LIMIT (URL) OF TROPONIN, DEFINED THE 99TH PERCENTILE OF cTnI DISTRIBUTION IN A REFERENCE POPULATION, HAS BEEN CONFIRMED THE DECISION THRESHOLD FOR MA DIAGNOSIS. Performed By: #### C VDTBH #### [facility] [address] [place] [address] Dr. Miladys Samuel AMYLASEon 11-04-2022 Amylase [Catalytic activity/Vol] 28 U/L Normal 25-115 [facility] Comment on above: Performed By: #### L IPA, NOHELIA #### [facility] [address] [place] [address] Dr. Miladys Samuel CBC AUTO DIFFon 11-04-2022 BASO # 0.0 103/ul Normal 0.0-0.1 [facility] Comment on above: Performed By: #### C VDTBH #### [facility] [address] [place] [address] Dr. Miladys Samuel Basophils/100 WBC (Bld) 0.2 % Normal 0.2-2.0 [facility] Comment on above: Performed By: #### C VDTBH #### [facility] [address] [place] [address] Dr. Miladys Samuel EO # 0.1 103/ul Normal 0.0-0.7 [facility] Comment on above: Performed By: #### C VDTBH #### [facility] [address] [place] [address] Dr. Miladys Samuel Eosinophils/100 WBC (Bld) 2.0 % Normal 0.9-7.0 [facility] Comment on above: Performed By: #### C VDTBH #### [facility] [address] [place] [address] Dr. Miladys Samuel Erythrocyte distribution width (RBC) [Ratio] 14.4 % Normal 11.0-15.0 [facility] Comment on above: Performed By: #### C VDTBH #### [facility] [address] [place] [address] Dr. Miladys Samuel Hematocrit (Bld) [Volume fraction] 42.0 % Normal 42.0-54.0 [facility] Comment on above: Performed By: #### C VDTBH #### [facility] [address] [place] [address] Dr. Miladys Samuel Hemoglobin (Bld) [Mass/Vol] 14.0 g/dL Normal 14.0-18.0 [facility] Comment on above: Performed By: #### C VDTBH #### [facility] [address] [place] [address] Dr. Miladys Samuel IG # 0.03 10e3/ul Normal 0.00-0.03 [facility] Comment on above: Performed By: #### C VDTBH #### [facility] [address] [place] [address] Dr. Miladys Samuel IG % 0.5 % Normal 0.0-0.5 [facility] Comment on above: Performed By: #### C VDTBH #### [facility] [address] [address] [address] Miladys Samuel LYMPH # 0.6 103/ul Critically low 1.2-3.8 [facility] Comment on above: Performed By: #### C VDTBH #### [facility] [address] [address] [address] Miladys Samuel Lymphocytes/100 WBC (Bld) 10.2 % Critically low 20.5-60.0 [facility] Comment on above: Performed By: #### C VDTBH #### [facility] [address] [address] [address] Miladys Samuel MANUAL DIFF REQ NO Normal [facility] Comment on above: Performed By: #### C VDTBH #### [facility] [address] [place] [address] Dr. Miladys Samuel MCH (RBC) [Entitic mass] 27.8 pg Normal 25.9-34.0 [facility] Comment on above: Performed By: #### C VDTBH #### [facility] [address] [place] [address] Dr. Miladys Samuel MCHC (RBC) [Mass/Vol] 33.3 g/dL Normal 29.9-35.2 [facility] Comment on above: Performed By: #### C VDTBH #### [facility] [address] [place] [address] Dr. Miladys Samuel MCV (RBC) [Entitic vol] 83.3 fL Normal 80.0-94.0 [facility] Comment on above: Performed By: #### C VDTBH #### [facility] [address] [place] [address] Dr. Miladys Samuel MONO # 0.5 103/ul Normal 0.3-0.8 [facility] Comment on above: Performed By: #### C VDTBH #### [facility] [address] [place] [address] Dr. Miladys Samuel Monocytes/100 WBC (Bld) 8.0 % Normal 1.7-12.0 [facility] Comment on above: Performed By: #### C VDTBH #### [facility] [address] [address] [address] Miladys Samuel NEUT # 4.8 103/ul Normal 1.4-6.5 [facility] Comment on above: Performed By: #### C VDTBH #### [facility] [address] [address] [address] Miladys Samuel Neutrophils/100 WBC (Bld) 79.1 % Critically high 43.0-75.0 [facility] Comment on above: Performed By: #### C VDTBH #### [facility] [address] [address] [address] Miladys Samuel Platelet mean volume (Bld) [Entitic vol] 9.8 fL Normal 9.5-13.5 [facility] Comment on above: Performed By: #### C VDTBH #### [facility] [address] [address] [address] Miladys Samuel PLT 111 103/ul Critically low 150-450 [facility] Comment on above: Performed By: #### C VDTBH #### [facility] [address] [address] [address] Miladys Samuel RBC 5.04 106/ul Normal 4.70-6.10 [facility] Comment on above: Performed By: #### C VDTBH #### [facility] [address] [address] [address] Miladys Samuel WBC 6.0 103/ul Normal 4.0-11.0 [facility] Comment on above: Performed By: #### C VDTBH #### [facility] [address] [address] [address] Miladys Samuel LIPASEon 11-04-2022 Lipase [Catalytic activity/Vol] 73.0 U/L Normal 73.0-393.0 [facility] Comment on above: Performed By: #### L IPA, NOHELIA ####[facility] [address] [place] [address]Dr. Miladys Samuel POINT OF CARE GLUCOSEon 10-11 Glucose [Mass/Vol] 222 mg/dL Critically high 74-106 T [facility] Comment on above: Performed By: #### A MY #### [facility] [address] [address] [address] Miladys Samuel PROF 14(COMP METB)on 023 Albumin [Mass/Vol] 3.7 g/dL Normal 3.4-5.0 [facility] Comment on above: Performed By: #### C MP ####[facility] [address] [place] [address]Dr. Miladys Samuel Albumin/Globulin [Mass ratio] 1.4 {ratio} Normal [facility] Comment on above: Performed By: #### C MP ####[facility] [address] [place] [address]Dr. Miladys Samuel ALP [Catalytic activity/Vol] 77 U/L Normal 46-116 [facility] Comment on above: Performed By: #### C MP ####[facility] [address] [place] [address]Dr. Miladys Samuel ALT [Catalytic activity/Vol] 116 U/L Critically high 16-63 [facility] Comment on above: Performed By: #### C MP ####[facility] [address] [place] [address]DrElinor Samuel Anion gap [Moles/Vol] 14.1 mmol/L Normal [facility] Comment on above: Performed By: #### C MP ####[facility] [address] [place] [address]Dr. Miladys Samuel AST [Catalytic activity/Vol] 54 U/L Critically high 15-37 [facility] Comment on above: Performed By: #### C MP ####[facility] [address] [place] [address]DrElinor Samuel Bilirubin [Mass/Vol] 0.6 mg/dL Normal 0.2-1.0 [facility] Comment on above: Performed By: #### C MP ####[facility] [address] [place] [address]DrElinor Samuel Calcium [Mass/Vol] 8.8 mg/dL Normal 8.5-10.1 [facility] Comment on above: Performed By: #### C MP ####[facility] [address] [place] [address]Dr. Miladys Samuel Chloride [Moles/Vol] 101 mmol/L Normal 98-107 [facility] Comment on above: Performed By: #### C MP ####[facility] [address] [place] [address]Dr. Miladys Samuel CO2 [Moles/Vol] 27.8 mmol/L Normal 21.0-32.0 [facility] Comment on above: Performed By: #### C MP ####[facility] [address] [place], [place] [address]Dr. Miladys Jimmie Creatinine [Mass/Vol] 0.79 mg/dL Normal 0.70-1.30 [facility] Comment on above: Performed By: #### C MP ####[facility] [address] [place], [place] [address]Dr. Miladys Samuel EGFR-AF [place]LANDER >60 Normal >=60 [facility] Comment on above: Performed By: #### C MP ####[facility] [address] [place], [place] [address]Dr. Miladys Jimmie EGFR-NON AF [place]ER >60 Normal >=60 [facility] Comment on above: Performed By: #### C MP ####[facility] [address] [place] [address]Dr. Miladys Jimmie Globulin (S) [Mass/Vol] 2.7 g/dL Normal [facility] Comment on above: Performed By: #### C MP ####[facility] [address] [place] [address]Dr. Miladys Jimmie Glucose [Mass/Vol] 153 mg/dL Critically high 74-106 [facility] Comment on above: Performed By: #### C MP ####[facility] [address] [place] [address]Dr. Cecilleearnest Samuel Potassium [Moles/Vol] 3.9 mmol/L Normal 3.5-5.1 [facility] Comment on above: Performed By: #### C MP ####[facility] [address] [place], [place] [address]Ii. Miladys Samuel Protein [Mass/Vol] 6.4 g/dL Normal 6.4-8.2 [facility] Comment on above: Performed By: #### C MP ####[facility] [address] [place], [place] [address]Bm. Miladys Samuel Sodium [Moles/Vol] 139 mmol/L Normal 136-145 [facility] Comment on above: Performed By: #### C MP ####[facility] [address] [place], [place] [address]Iw. Miladys Samuel Urea nitrogen [Mass/Vol] 9.0 mg/dL Normal 7.0-18.0 [facility] Comment on above: Performed By: #### C MP ####[facility] [address] [place] [id number]. Miladys Samuel Urea nitrogen/Creatinine [Mass ratio] 11.4 mg/mg Normal [facility] Comment on above: Performed By: #### C MP ####[facility] [address] [place] [id number]. Miladys Samuel XR KUB 1 VIEWon 11-04-2022 [...] MARTA COLEMAN Date: 2022-11-04 02:22 Normal [facility] AMYLASEon 11-03-2022 Amylase [Catalytic activity/Vol] 31 U/L Normal 25-115 [facility] Comment on above: Performed By: #### A MY #### [facility] [address] [place] [address] Dr. Miladys Samuel CBC AUTO DIFFon 11-03-2022 BASO # 0.0 103/ul Normal 0.0-0.1 [facility] Comment on above: Performed By: #### A MY #### [facility] [address] [place] [address] Dr. Miladys Samuel Basophils/100 WBC (Bld) 0.2 % Normal 0.2-2.0 [facility] Comment on above: Performed By: #### A MY #### [facility] [address] [place] [address] Dr. Miladys Samuel EO # 0.1 103/ul Normal 0.0-0.7 [facility] Comment on above: Performed By: #### A MY #### [facility] [address] [place] [address] Dr. Miladys Samuel Eosinophils/100 WBC (Bld) 1.5 % Normal 0.9-7.0 [facility] Comment on above: Performed By: #### A MY #### [facility] [address] [place] [address] Dr. Miladys Samuel Erythrocyte distribution width (RBC) [Ratio] 14.0 % Normal 11.0-15.0 [facility] Comment on above: Performed By: #### A MY #### [facility] [address] [place] [address] Dr. Miladys aSmuel Hematocrit (Bld) [Volume fraction] 40.0 % Critically low 42.0-54.0 [facility] Comment on above: Performed By: #### A MY #### [facility] [address] [place] [address] Dr. Miladys Samuel Hemoglobin (Bld) [Mass/Vol] 13.4 g/dL Critically low 14.0-18.0 [facility] Comment on above: Performed By: #### A MY #### [facility] [address] [place] [address] Dr. Miladys Samuel IG # 0.02 10e3/ul Normal 0.00-0.03 [facility] Comment on above: Performed By: #### A MY #### [facility] [address] [place] [address] Dr. Milayds Samuel IG % 0.4 % Normal 0.0-0.5 [facility] Comment on above: Performed By: #### A MY #### [facility] [address] [place] [address] Dr. Miladys Samuel LYMPH # 0.8 103/ul Critically low 1.2-3.8 [facility] Comment on above: Performed By: #### A MY #### [facility] [address] [place] [address] Dr. Miladys Samuel Lymphocytes/100 WBC (Bld) 14.2 % Critically low 20.5-60.0 [facility] Comment on above: Performed By: #### A MY #### [facility] [address] [place] [address] Dr. Miladys Samuel MANUAL DIFF REQ NO Normal [facility] Comment on above: Performed By: #### A MY #### [facility] [address] [place] [address] Dr. Miladys Samuel MCH (RBC) [Entitic mass] 27.7 pg Normal 25.9-34.0 [facility] Comment on above: Performed By: #### A MY #### [facility] [address] [place] [address] Dr. Miladys Samuel MCHC (RBC) [Mass/Vol] 33.5 g/dL Normal 29.9-35.2 [facility] Comment on above: Performed By: #### A MY #### [facility] [address] [place] [address] Dr. Miladys Samuel MCV (RBC) [Entitic vol] 82.6 fL Normal 80.0-94.0 [facility] Comment on above: Performed By: #### A MY #### [facility] [address] [place] [address] Dr. Miladys Samuel MONO # 0.6 103/ul Normal 0.3-0.8 [facility] Comment on above: Performed By: #### A MY #### [facility] [address] [place] [address] Dr. Miladys Samuel Monocytes/100 WBC (Bld) 10.9 % Normal 1.7-12.0 [facility] Comment on above: Performed By: #### A MY #### [facility] [address] [place] [address] Dr. Miladys Samuel NEUT # 3.9 103/ul Normal 1.4-6.5 [facility] Comment on above: Performed By: #### A MY #### [facility] [address] [place] [address] Dr. Miladys Samuel Neutrophils/100 WBC (Bld) 72.8 % Normal 43.0-75.0 [facility] Comment on above: Performed By: #### A MY #### [facility] [address] [place] [address] Dr. Miladys Samuel Platelet mean volume (Bld) [Entitic vol] 9.6 fL Normal 9.5-13.5 [facility] Comment on above: Performed By: #### A MY #### [facility] [address] [place] [address] Dr. Miladys Samuel PLT 121 103/ul Critically low 150-450 [facility] Comment on above: Performed By: #### A MY #### [facility] [address] [place] [address] Dr. Miladys Samuel RBC 4.84 106/ul Normal 4.70-6.10 [facility] Comment on above: Performed By: #### A MY #### [facility] [address] [place] [address] Dr. Miladys Samuel WBC 5.3 103/ul Normal 4.0-11.0 [facility] Comment on above: Performed By: #### A MY #### [facility] [address] [place] [address] Dr. Miladys Samuel ER URINE PROFILEon 3 Bilirubin Ql (U) Negative Normal NEGATIVE [facility] Comment on above: Performed By: #### KIRK RODRIGUEZICRO ####[facility] [address] [place] [address]Dr. Miladys Samuel Clarity (U) CLEAR Normal CLEAR [facility] Comment on above: Performed By: #### SAMUEL RODRIGUEZRO ####[facility] [address] [place] [address]Dr. Miladys Samuel Color (U) YELLOW Normal YELLOW [facility] Comment on above: Performed By: #### KIRK RODRIGUEZICRO ####[facility] [address] [place] [address]Dr. Miladys Samuel ERUAHD A micrscopic examina tion will be performed if indicated. Normal [facility] Comment on above: Performed By: #### SAMUEL RODRIGUEZRO ####[facility] [address] [place], [place] [address]Dr. Miladys Samuel Glucose Ql (U) Negative Normal NEGATIVE [facility] Comment on above: Performed By: #### KIRK RODRIGUEZICRO ####[facility] [address] [place], [place] [address]Dr. Miladys Samuel Hemoglobin Ql (U) LARGE Abnormal NEGATIVE [facility] Comment on above: Performed By: #### KIRK RODRIGUEZICRO ####[facility] [address] [place] [address]Dr. Miladys Samuel Ketones Ql (U) TRACE Abnormal NEGATIVE [facility] Comment on above: Performed By: #### KIRK RODRIGUEZICRO ####[facility] [address] [place] [address]Dr. Miladys Samuel LEUKOCYTES Negative Normal NEGATIVE [facility] Comment on above: Performed By: #### SAMUEL RODRIGUEZRO ####[facility] [address] [place] [address]Dr. Miladys Samuel Nitrite Ql (U) Negative Normal NEGATIVE [facility] Comment on above: Performed By: #### SAMUEL RODRIGUEZRO ####[facility] [address] [place] [address]Dr. Miladys Samuel pH (U) 6.0 [pH] Normal 5-9 [facility] Comment on above: Performed By: #### GUIDO RODRIGUEZ ####[facility] [address] [place] [address]Dr. Miladys Samuel SPEC GRAVITY 1.010 Normal 1.005-<=1.0 25 [facility] Comment on above: Performed By: #### GUIDO RODRIGUEZ ####[facility] [address] [address]Dr. Miladys Samuel UA PROTEIN Negative Normal NEGATIVE/ TRACE [facility] Comment on above: Performed By: #### GUIDO RODRIGUEZ ####[facility] L[address] [place], [place] [address]Dr. Miladys Samuel UR MICRO IND INDICATED Normal [facility] Comment on above: Performed By: #### GUIDO RODRIGUEZ ####[facility] [address] [place] [address]Dr. Miladys Samuel Urobilinogen Qn (U) 0.2 {Kathie'U}/dL Normal 0.2 - 1. 0 [facility] Comment on above: Performed By: #### GUIDO RODRIGUEZ ####[facility] [address] [place], [place] [address]Dr. Miladys Samuel LACTATE/LACTIC ACIDon 2022 Lactate [Moles/Vol] 1.9 mmol/L Normal 0.4-1.9 [facility] Comment on above: Performed By: #### A MY #### [facility] [address] [address] [address] Miladys Samuel LIPASEon 11-03-2022 Lipase [Catalytic activity/Vol] 106.0 U/L Normal 73.0-393.0 [facility] Comment on above: Performed By: #### A MY #### [facility] [address] [address] [address] Miladys Samuel POINT OF CARE GLUCOSEon 10-11 Glucose [Mass/Vol] 190 mg/dL Critically high 74-106 [facility] on above: Performed By: #### L ACT #### [facility] [address] [address] [address] Miladys Samuel Glucose [Mass/Vol] 115 mg/dL Critically high -106 [facility] Comment on above: Performed By: #### P OCGLUC ####[facility] [address] [place] [id number]. Miladys Samuel Glucose [Mass/Vol] 134 mg/dL Critically high -106 [facility] Comment on above: Performed By: #### P OCGLUC #### [facility] [address] [address] [address] Miladys Samuel Glucose [Mass/Vol] 153 mg/dL Critically high -106 [facility] Comment on above: Performed By: #### P OCGLUC ####[facility] [address] [place] [address]Dr. Miladys Samuel PROF CHEM 8 (BAS METB)on Anion gap [Moles/Vol] 11.0 mmol/L Normal [facility] Comment on above: Performed By: #### B MP ####[facility] [address] [place], [place] [address]DrElinor Samuel Calcium [Mass/Vol] 8.5 mg/dL Normal 8.5-10.1 [facility] Comment on above: Performed By: #### B MP ####[facility] [address] [place] [address]DrElinor Samuel Chloride [Moles/Vol] 101 mmol/L Normal 98-107 [facility] Comment on above: Performed By: #### B MP ####[facility] [address] [place] [id number] Samuel CO2 [Moles/Vol] 31.3 mmol/L Normal 21.0-32.0 [facility] Comment on above: Performed By: #### B MP ####[facility] [address] [place] [id number] Samuel Creatinine [Mass/Vol] 0.95 mg/dL Normal 0.70-1.30 [facility] Comment on above: Performed By: #### B MP ####[facility] [address] [place] [id number]. Miladys Jimmie EGFR-AF [place]ER >60 Normal >=60 [facility] Comment on above: Performed By: #### B MP ####[facility] [address] [place] [id number]. Miladys Jimmie EGFR-NON AF [place] >60 Normal >=60 [facility] Comment on above: Performed By: #### B MP ####[facility] [address] [place] [id number]. Cecilleearnest Jimmie Glucose [Mass/Vol] 140 mg/dL Critically high 74-106 [facility] Comment on above: Performed By: #### B MP ####[facility] [address] [place] [id number]. Cecilleearnest Jimmie Potassium [Moles/Vol] 4.3 mmol/L Normal 3.5-5.1 [facility] Comment on above: Performed By: #### B MP ####[facility] [address] [place] [id number]. Cecilleearnest Jimmie Sodium [Moles/Vol] 139 mmol/L Normal 136-145 [facility] Comment on above: Performed By: #### B MP ####[facility] [address] [place] [id number]. Cecilleearnest Jimmie Urea nitrogen [Mass/Vol] 12.0 mg/dL Normal 7.0-18.0 [facility] Comment on above: Performed By: #### B MP ####[facility] [address] [place] [id number]. Miladys Samuel Urea nitrogen/Creatinine [Mass ratio] 12.6 mg/mg Normal [facility] Comment on above: Performed By: #### B MP ####[facility] [address] [place] [id number]. Cecilleearnest Jimmie URINE MICROSCOPIC ONLYon BACTERIA TRACE Abnormal NONE SEEN [facility] Comment on above: Performed By: #### E RUR, UMICRO ####[facility] [address] [place], [place] [address]Dr. Miladys Samuel Bacteria identified Cx Nom (U) NOT INDICATED Normal [facility] Comment on above: Performed By: #### SAMUEL RODRIGUEZRO ####[facility] [address] [place] [address]Dr. Miladys Samuel CAST NONE SEEN Normal NONE SEEN [facility] Comment on above: Performed By: #### SAMUEL RODRIGUEZRO ####[facility] [address] [place], [place] [address]Dr. Miladys Samuel Crystals LM Nom (Urine sed) NONE SEEN Normal NONE SEEN [facility] Comment on above: Performed By: #### SAMUEL RODRIGUEZRO ####[facility] [address] [place], [place] [address]Dr. Miladys Samuel Epithelial cells LM Ql (Urine sed) RARE Normal NONE SEEN /RARE [facility] Comment on above: Performed By: #### SAMUEL RODRIGUEZRO ####[facility] [address] [place], [place] [address]Dr. Miladys Samuel MUCOUS NONE SEEN Normal NONE SEEN [facility] Comment on above: Performed By: #### SAMUEL RDORIGUEZRO ####[facility] [address] [place], [place] [address]Dr. Miladys Samuel RBC 2-5 Abnormal 0-2 [facility] Comment on above: Performed By: #### SAMUEL RODRIGUEZRO ####[facility] [address] [place], [place] [address]Dr. Miladys Samuel WBC 0-2 Abnormal NONE SEEN [facility] Comment on above: Performed By: #### SAMUEL RODRIGUEZRO ####[facility] [address] [place], [place] [address]Dr. Miladys Samuel XR KUB 1 VIEWon 11-03-2022 [...] MARY RODRIGUEZ Date: 2022-11-02 22:41 Normal [facility] CBC AUTO DIFFon 11-02-2022 BASO # 0.0 103/ul Normal 0.0-0.1 [facility] Comment on above: Performed By: #### C VDTBH #### [facility] [address] [place] [address] Dr. Miladys Samuel Basophils/100 WBC (Bld) 0.3 % Normal 0.2-2.0 [facility] Comment on above: Performed By: #### C VDTBH #### [facility] [address] [place] [address] Dr. Miladys Samuel EO # 0.1 103/ul Normal 0.0-0.7 [facility] Comment on above: Performed By: #### C VDTBH #### [facility] [address] [place] [address] Dr. Miladys Samuel Eosinophils/100 WBC (Bld) 1.8 % Normal 0.9-7.0 [facility] Comment on above: Performed By: #### C VDTBH #### [facility] [address] [place] [address] Dr. Miladys Samuel Erythrocyte distribution width (RBC) [Ratio] 14.0 % Normal 11.0-15.0 [facility] Comment on above: Performed By: #### C VDTBH #### [facility] [address] [place] [address] Dr. Miladys Samuel Hematocrit (Bld) [Volume fraction] 44.1 % Normal 42.0-54.0 [facility] Comment on above: Performed By: #### C VDTBH #### [facility] [address] [place] [address] Dr. Miladys Samuel Hemoglobin (Bld) [Mass/Vol] 14.6 g/dL Normal 14.0-18.0 [facility] Comment on above: Performed By: #### C VDTBH #### [facility] [address] [address] [address] Miladys Samuel IG # 0.02 10e3/ul Normal 0.00-0.03 [facility] Comment on above: Performed By: #### C VDTBH #### [facility] [address] [address] [address] Miladys Samuel IG % 0.3 % Normal 0.0-0.5 [facility] Comment on above: Performed By: #### C VDTBH #### [facility] [address] [place] [address] Dr. Miladys Samuel LYMPH # 1.2 103/ul Normal 1.2-3.8 [facility] Comment on above: Performed By: #### C VDTBH #### [facility] [address] [place] [address] Dr. Miladys Samuel Lymphocytes/100 WBC (Bld) 16.1 % Critically low 20.5-60.0 [facility] Comment on above: Performed By: #### C VDTBH #### [facility] [address] [place] [address] Dr. Miladys Samuel MANUAL DIFF REQ NO Normal [facility] Comment on above: Performed By: #### C VDTBH #### [facility] [address] [place] [address] Dr. Miladys Samuel MCH (RBC) [Entitic mass] 27.3 pg Normal 25.9-34.0 [facility] Comment on above: Performed By: #### C VDTBH #### [facility] [address] [place] [address] Dr. Miladys Samuel MCHC (RBC) [Mass/Vol] 33.1 g/dL Normal 29.9-35.2 [facility] Comment on above: Performed By: #### C VDTBH #### [facility] [address] [place] [address] Dr. Miladys Samuel MCV (RBC) [Entitic vol] 82.4 fL Normal 80.0-94.0 [facility] Comment on above: Performed By: #### C VDTB #### [facility] [address] [place] [address] Dr. Miladys Samuel MONO # 0.4 103/ul Normal 0.3-0.8 [facility] Comment on above: Performed By: #### C VDTBH #### [facility] [address] [place] [address] Dr. Miladys Samuel Monocytes/100 WBC (Bld) 5.3 % Normal 1.7-12.0 [facility] Comment on above: Performed By: #### C VDTBH #### [facility] [address] [place] [address] Dr. Miladys Samuel NEUT # 5.8 103/ul Normal 1.4-6.5 [facility] Comment on above: Performed By: #### C VDTB #### [facility] [address] [place] [address] Dr. Miladys Samuel Neutrophils/100 WBC (Bld) 76.2 % Critically high 43.0-75.0 [facility] Comment on above: Performed By: #### C VDTB #### [facility] [address] [place] [address] Dr. Miladys Samuel Platelet mean volume (Bld) [Entitic vol] 10.0 fL Normal 9.5-13.5 [facility] Comment on above: Performed By: #### C VDTBH #### [facility] [address] [place] [address] Dr. Miladys Samuel PLT 160 103/ul Normal 150-450 [facility] Comment on above: Performed By: #### C VDTBH #### [facility] [address] [place] [address] Dr. Miladys Samuel RBC 5.35 106/ul Normal 4.70-6.10 [facility] Comment on above: Performed By: #### C VDTBH #### [facility] [address] [place] [address] Dr. Miladys Samuel WBC 7.6 103/ul Normal 4.0-11.0 [facility] Comment on above: Performed By: #### C VDTBH #### [facility] [id number] Miladys Samuel CT ABD/PELV W CONon [...] RYLAN YADAV Date: 2022-11-02 19:32 Normal [facility] Covid-19 PCR (CVDTBH)on 10-11 SARS-CoV-2 (COVID-19) RNA FELY+probe Ql (Unsp spec) Not detected Normal NOT DETECTED [facility] Comment on above: Result Comment: When diagnostic [...] for this test is supported by the Supervisor Lathing of Health and Human Service's declaration that [...] longer be used). Performed By: #### C VDTBH #### [facility] [address] [place] [address] Dr. Miladys Samuel LACTATE/LACTIC ACIDon 2022 Lactate [Moles/Vol] 3.1 mmol/L Critically high 0.4-1.9 [facility] Comment on above: Performed By: #### L ACT ####[facility] [address] [place] [address]Dr. Miladys Samuel Lactate [Moles/Vol] 3.0 mmol/L Critically high 0.4-1.9 [facility] Comment on above: Performed By: #### L ACT #### [facility] [address] [place] [address] Dr. Miladys Samuel LIPASEon 11-02-2022 Lipase [Catalytic activity/Vol] 573.0 U/L Critically high 73.0-393.0 [facility] Comment on above: Performed By: #### A MY #### [facility] [address] [place] [address] Dr. Miladys Samuel PROF 14(COMP METB)on 023 Albumin [Mass/Vol] 4.2 g/dL Normal 3.4-5.0 [facility] Comment on above: Performed By: #### A MY #### [facility] [address] [address] [address] Miladys Samuel Albumin/Globulin [Mass ratio] 1.3 {ratio} Normal [facility] Comment on above: Performed By: #### A MY #### [facility] [address] [address] [address] Miladys Samuel ALP [Catalytic activity/Vol] 65 U/L Normal 46-116 [facility] Comment on above: Performed By: #### A MY #### [facility] [address] [place] [address] Dr. Miladys Samuel ALT [Catalytic activity/Vol] 37 U/L Normal 16-63 [facility] Comment on above: Performed By: #### A MY #### [facility] [address] [address] [address] Miladys Samuel Anion gap [Moles/Vol] 12.6 mmol/L Normal [facility] Comment on above: Performed By: #### A MY #### [facility] [address] [place] [address] Dr. Miladys Samuel AST [Catalytic activity/Vol] 45 U/L Critically high 15-37 [facility] Comment on above: Performed By: #### A MY #### [facility] [address] [address] [address] Miladys Samuel Bilirubin [Mass/Vol] 0.5 mg/dL Normal 0.2-1.0 [facility] Comment on above: Performed By: #### A MY #### [facility] [address] [place] [address] Dr. Miladys Samuel Calcium [Mass/Vol] 9.5 mg/dL Normal 8.5-10.1 [facility] Comment on above: Performed By: #### A MY #### [facility] [address] [place] [address] Dr. Miladys Samuel Chloride [Moles/Vol] 98 mmol/L Normal 98-107 [facility] Comment on above: Performed By: #### A MY #### [facility] [address] [place] [address] Dr. Miladys Samuel CO2 [Moles/Vol] 29.9 mmol/L Normal 21.0-32.0 [facility] Comment on above: Performed By: #### A MY #### [facility] [address] [address] [address] Miladys Samuel Creatinine [Mass/Vol] 0.97 mg/dL Normal 0.70-1.30 [facility] Comment on above: Performed By: #### A MY #### [facility] [address] [place] [address] Dr. Miladys Samuel EGFR-AF [place] >60 Normal >=60 [facility] Comment on above: Performed By: #### A MY #### [facility] [address] [place] [address] Dr. Miladys Samuel EGFR-NON AF [place] >60 Normal >=60 [facility] Comment on above: Performed By: #### A MY #### [facility] [address] [place] [address] Dr. Miladys Samuel Globulin (S) [Mass/Vol] 3.2 g/dL Normal [facility] Comment on above: Performed By: #### A MY #### [facility] [address] [place] [address] Dr. Miladys Samuel Glucose [Mass/Vol] 154 mg/dL Critically high 74-106 [facility] Comment on above: Performed By: #### A MY #### [facility] [address] [place] [address] Dr. Miladys Samuel Potassium [Moles/Vol] 4.5 mmol/L Normal 3.5-5.1 [facility] Comment on above: Performed By: #### A MY #### [facility] [address] [place] [address] Dr. Miladys Samuel Protein [Mass/Vol] 7.4 g/dL Normal 6.4-8.2 [facility] Comment on above: Performed By: #### A MY #### [facility] [address] [address] [address] Miladys Samuel Sodium [Moles/Vol] 136 mmol/L Normal 136-145 [facility] Comment on above: Performed By: #### A MY #### [facility] [address] [address] [address] Miladys Samuel Urea nitrogen [Mass/Vol] 7.0 mg/dL Normal 7.0-18.0 [facility] Comment on above: Performed By: #### A MY #### [facility] [address] [address] [address] Miladys Samuel Urea nitrogen/Creatinine [Mass ratio] 7.2 mg/mg Normal [facility] Comment on above: Performed By: #### A MY #### [facility] [address] [address] [address] Miladys Samuel PROTIMEon 11-02-2022 INR Coag (PPP) [Relative time] 1.02 {INR} Normal [facility] Comment on above: Performed By: #### P TT, PT ####[facility] [address] [place], [place] [address]Dr. Miladys Samuel INR GUIDELINES SEE BELOW Normal [facility] Comment on above: Result Comment: BRITTA RED INR: 2.0 - 3.0 CONDITIONS NOT LISTED BELOW 2.5 - 3.5 FOR PROSTHETIC HEART VALVE REPLACEMENT 2.5 - 3.5 RECURRENT THROMBOSIS Performed By: #### P TT, PT ####[facility] [address] [place], [place] [address]DrElinor Samuel PT Coag (PPP) [Time] 10.8 s Normal 9.0-11.6 [facility] Comment on above: Performed By: #### P TT, PT ####[facility] [address] [place], [place] [address]DrElinor Samuel PTTon 11-02-2022 aPTT Coag (Bld) [Time] 24.6 s Normal 22.3-36.2 [facility] Comment on above: Performed By: #### P TT, PT ####[facility] [address] [place], [place] [address]AuElinor Samuel XR KUB 1 VIEWon 11-02-2022 XR KUB 1 VIEW EXAM: XR KUB 1 VIEW HISTORY: Enteric tube placement COMPARISON: Abdomen and pelvic CT earlier in the day TECHNIQUE: Single view FINDINGS: IMPRESSION: Bowel gas pattern no gross free peritoneal air. Contrast within the bladder, renal collecting system and stomach. No visualized enteric tube. Electronically authenticated by: MARY RODRIGUEZ Date: 2022-11-02 21:33 Normal [facility] 30on 08-20-2022 30 The patient is Moder ately Stable - Low risk of patient condition declining or worsening The patient's goals for the shift include comfort The clinical goals for the shift include comfort Over the shift, the patient did not make progress toward the following goals. Barriers to progression include pain. Recommendations to address these barriers include goo pain relief. Normal [facility] BASIC METABOLIC PANELon 08-09 Anion gap [Moles/Vol] 3 mmol/L Low 7-20 [facility] Comment on above: Performed By: #### L [id number] #### [facility] (AKER) [address] [place] [address] Calcium [Mass/Vol] 8.0 mg/dL Low 8.6-10.3 [facility] Comment on above: Performed By: #### L [id number] #### [facility] ([facility]) [address] [place] [address] Chloride [Moles/Vol] 101 mmol/L Normal 98-107 [facility] Comment on above: Performed By: #### L [id number] #### [facility] (BEAKER) [address] [place] [address] CO2 [Moles/Vol] 33 mmol/L High 21-31 [facility] Comment on above: Performed By: #### L [id number] #### [facility] ([facility]) [address] [place] [address] Creatinine [Mass/Vol] 0.83 mg/dL Normal 0.70-1.30 [facility] Comment on above: Performed By: #### L [id number] #### [facility] ([facility]) [address] [place] [address] GLOMERULAR FILTRATION RATE ML/MIN/1.73 SQ M.PREDICTED 91.7 mL/min/1.73m*2 Normal >60.0 [facility] Comment on above: Result Comment: The [facility]???s estimated glomerular filtration rate (eGFR) will no [...] group of individuals. Performed By: #### L [id number] #### [facility] ([facility]) [address] [place] [address] Glucose [Mass/Vol] 163 mg/dL High 70-100 [facility] Comment on above: Performed By: #### L [id number] #### [facility] ([facility]) [address] [place] [address] Potassium [Moles/Vol] 3.9 mmol/L Normal 3.5-5.1 [facility] Comment on above: Performed By: #### L [id number] #### [facility] ([facility]) [address] [place] [address] Sodium [Moles/Vol] 137 mmol/L Normal 136-145 [facility] Comment on above: Performed By: #### L [id number] #### [facility] ([facility]) [address] [place] [address] Urea nitrogen [Mass/Vol] 14 mg/dL Normal 7-25 [facility] Comment on above: Performed By: #### L [id number] #### [facility] ([facility]) [address] [place] [address] UREA NITROGEN/CREATININE (MASS RATIO) IN SER/PLAS 16.87 Normal [facility] Comment on above: Performed By: #### L [id number] #### [facility] ([facility]) [address] [place] [address] CBC WITH AUTO DIFFERENTIALon 08-20-2022 ERYTHROCYTE DISTRIBUTION WIDTH (RATIO) STANDARD DEVIATION 43.4 Normal [facility] Comment on above: Performed By: #### L [id number] #### [facility] ([facility]) [address] [place] [address] Erythrocyte distribution width (RBC) [Ratio] 13.6 % Normal 11.5-15.0 [facility] Comment on above: Performed By: #### L [id number] #### [facility] ([facility]) [address] [place] [address] ERYTHROCYTE MEAN CORPUSCULAR HEMOGLOBIN CONCENTRATION (G/DL) BY AUTOMATED 32.5 g/dL Normal 32.0-35.0 [facility] Comment on above: Performed By: #### L [id number] #### [facility] ([facility]) [address] [place] [address] Hematocrit (Bld) [Volume fraction] 36.0 % Low 39.0-55.0 [facility] Comment on above: Performed By: #### L [id number] #### [facility] ([facility]) [address] [place] [address] Hemoglobin (Bld) [Mass/Vol] 11.7 g/dL Low 13.0-17.0 [facility] Comment on above: Performed By: #### L [id number] #### [facility] ([facility]) [address] [place] [address] MCH (RBC) [Entitic mass] 28.3 pg Normal 27.0-33.0 [facility] Comment on above: Performed By: #### L [id number] #### [facility] ([facility]) [address] [place] [address] MCV (RBC) [Entitic vol] 87.2 fL Normal 82.0-98.0 [facility] Comment on above: Performed By: #### L [id number] #### [facility] ([facility]) [address] [place] [address] NRBC (PER 100 WBCS) BY AUTOMATED COUNT 0.0 % Normal 0.0-0.0 [facility] Comment on above: Performed By: #### L [id number] #### [facility] ([facility]) [address] [place] [address] PLATELETS (10*3/UL) IN BLOOD AUTOMATED COUNT 98 10*3/uL Low 150-400 [facility] Comment on above: Performed By: #### L [id number] #### [facility] ([facility]) [address] [place] [address] RBC (Bld) [#/Vol] 4.13 10*6/uL Low 4.20-5.70 [facility] Comment on above: Performed By: #### L [id number] #### [facility] ([facility]) [address] [place] [address] WBC (Bld) [#/Vol] 3.69 10*3/uL Low 4.00-10.60 [facility] Comment on above: Performed By: #### L [id number] #### [facility] ([facility]) [address] [place] [address] DSon 08-20-2022 DS ------ -- Attestation signed by Lazaro Pickard MD at 09/03/2022 6:07 PM Attending Physician Statement I have discussed the case, including pertinent history and exam findings with Dr. Covarrubias, certified surgical tech/first assistant and have personally seen the patient. I agree with the assessment, plan and orders as documented. [phone] pager [phone] phone -- [facility] General Surgery DISCHARGE SUMMARY Admission Admitted 08/18/2022 for bowel obstruction Discharge Diagnosis SBO (small bowel obstruction) ([facility]) Discharge Disposition Home or Self [...] Hydromorphone, Dronabinol, and Hydromorphone (bulk) Hospital Course Esla Espinoza is a 67 y.o. male w/ PMH of h/o CAD s/p CABG, DM, HTN, HLD, pancreatitis who presents to [facility] as a transfer from [facility] for evaluation of SBO on 08/18. [...] 0.01 Platel (more content not included)... Normal [facility] MAGNESIUMon 08-20-2022 Magnesium [Mass/Vol] 1.9 mg/dL Normal 1.9-2.7 [facility] Comment on above: Performed By: #### L [id number] #### [facility] ([facility]) [address] [place] [address] MANUAL DIFFERENTIALon 2021 BASOPHILS (10*3/UL) IN BLOOD BY CALCULATION 0.01 10*3/uL Normal [facility] Comment on above: Performed By: #### L [id number] #### [facility] (BEAKER) [address] [place] [address] BASOPHILS/100 LEUKOCYTES IN BLOOD BY AUTOMATED COUNT 0.3 % Normal 0.0-1.0 [facility] Comment on above: Performed By: #### L [id number] #### [facility] ([facility]AK[facility]) [address] [place] [address] EOSINOPHILS (10*3/UL) IN BLOOD BY CALCULATION 0.13 10*3/uL Normal [facility] Comment on above: Performed By: #### L [id number] #### [facility] (BEAKER) [address] [place] [address] EOSINOPHILS/100 LEUKOCYTES IN BLOOD BY AUTOMATED COUNT 3.5 % Normal 0.0-6.0 [facility] Comment on above: Performed By: #### L [id number] #### [facility] (BE[facility]ER) [address] [place] [address] IMMATURE GRANULOCYTES (10*3/UL) IN BLOOD BY CALCULATION 0.01 Normal [facility] Comment on above: Performed By: #### L [id number] #### [facility] ([facility]) [address] [place] [address] IMMATURE GRANULOCYTES/100 LEUKOCYTES IN BLOOD BY AUTOMATED COUNT 0.3 % Normal 0.0-1.0 [facility] Comment on above: Performed By: #### L [id number] #### [facility] ([facility]) [address] [place] [address] LYMPHOCYTES (10*3/UL) IN BLOOD BY CALCULATION 0.41 10*3/uL Low 1.20-4.00 [facility] Comment on above: Performed By: #### L [id number] #### [facility] ([facility]) [address] [place] [address] LYMPHOCYTES/100 LEUKOCYTES IN BLOOD BY AUTOMATED COUNT 11.1 % Low 20.0-45.0 [facility] Comment on above: Performed By: #### L [id number] #### [facility] ([facility]) [address] [place] [address] MONOCYTES (10*3/UL) IN BLOOD BY CALCUATION 0.44 10*3/uL Normal [facility] Comment on above: Performed By: #### L [id number] #### [facility] ([facility]) [address] [place] [address] MONOCYTES/100 LEUKOCYTES IN BLOOD BY AUTOMATED COUNT 11.9 % Normal 5.0-12.0 [facility] Comment on above: Performed By: #### L [id number] #### [facility] ([facility]) [address] [place] [address] NEUTROPHILS (10*3/UL) IN BLOOD BY CALCULATION 2.7 10*3/uL Normal 1.6-7.6 [facility] Comment on above: Performed By: #### L [id number] #### [facility] ([facility]) [address] [place] [address] NEUTROPHILS/100 LEUKOCYTES IN BLOOD BY AUTOMATED COUNT 72.9 % High 40.0-72.0 [facility] Comment on above: Performed By: #### L [id number] #### [facility] [address] [place] [address] PHOSPHORUSon 08-20-2022 Magnesium [Mass/Vol] 1.8 mg/dL Low 2.5-5.0 [facility] Comment on above: Performed By: #### L [id number] #### [facility] ([facility]) [address] [place] [address] 30on 08-19-2022 30 The patient is Moder [...] goals for the shift include comfort Normal [facility] 30 Problem: Pain - Adul t Goal: [...] barriers include monitor I&O, manage nausea. Normal [facility] BASIC METABOLIC PANELon 08-09 Anion gap [Moles/Vol] 8 mmol/L Normal 7-20 [facility] Comment on above: Performed By: #### L [id number] ####[facility] ([facility])[address] [place] [address] Calcium [Mass/Vol] 8.9 mg/dL Normal 8.6-10.3 [facility] Comment on above: Performed By: #### L [id number] ####[facility] ([facility])[address] [place] [address] Chloride [Moles/Vol] 99 mmol/L Normal 98-107 [facility] Comment on above: Performed By: #### L [id number] ####[facility] ([facility])[address] [place] [address] CO2 [Moles/Vol] 31 mmol/L Normal 21-31 [facility] Comment on above: Performed By: #### L [id number] ####[facility] ([facility])[address] [place] [address] Creatinine [Mass/Vol] 0.91 mg/dL Normal 0.70-1.30 [facility] Comment on above: Performed By: #### L [id number] ####[facility] ([facility])[address] [place] [address] GLOMERULAR FILTRATION RATE ML/MIN/1.73 SQ M.PREDICTED 87.5 mL/min/1.73m*2 Normal >60.0 [facility] Comment on above: Result Comment: The [facility]???s estimated glomerular filtration rate (eGFR) will no [...] of individuals. Performed By: #### L [id number] ####[facility] ([facility] [place] [address] Glucose [Mass/Vol] 139 mg/dL High 70-100 [facility] Comment on above: Performed By: #### L [id number] ####[facility] (BEAKER)[address] [place] [address] Potassium [Moles/Vol] 4.4 mmol/L Normal 3.5-5.1 [facility] Comment on above: Performed By: #### L [id number] ####[facility] (BEAKER)[address] [place] [address] Sodium [Moles/Vol] 138 mmol/L Normal 136-145 [facility] Comment on above: Performed By: #### L [id number] ####[facility] ([facility] [place] [address] Urea nitrogen [Mass/Vol] 16 mg/dL Normal 7-25 [facility] Comment on above: Performed By: #### L [id number] ####[facility] ([facility])[address] [place] [address] UREA NITROGEN/CREATININE (MASS RATIO) IN SER/PLAS 17.58 Normal [facility] Comment on above: Performed By: #### L [id number] ####[facility] ([facility])[address] [place] [address] CBC WITH AUTO DIFFERENTIALon 08-19-2022 Basophils (Bld) [#/Vol] 0.01 10*3/uL Normal 0.00-0.20 [facility] Comment on above: Performed By: #### L [id number] ####[facility] ([facility] [place] [address] Basophils/100 WBC (Bld) 0.2 % Normal 0.0-1.0 [facility] Comment on above: Performed By: #### L [id number] ####[facility] ([facility] [place] [address] Eosinophils (Bld) [#/Vol] 0.01 10*3/uL Normal 0.00-0.50 [facility] Comment on above: Performed By: #### L [id number] ####[facility] (BEAKER)[address] [place] [address] Eosinophils/100 WBC (Bld) 0.2 % Normal 0.0-6.0 [facility] Comment on above: Performed By: #### L [id number] ####[facility] (BEAKER)[address] [place] [address] ERYTHROCYTE DISTRIBUTION WIDTH (RATIO) STANDARD DEVIATION 43.2 Normal [facility] Comment on above: Performed By: #### L [id number] ####[facility] ([facility] [place] [address] Erythrocyte distribution width (RBC) [Ratio] 14.0 % Normal 11.5-15.0 [facility] Comment on above: Performed By: #### L [id number] ####[facility] ([facility])[address] [place] [address] ERYTHROCYTE MEAN CORPUSCULAR HEMOGLOBIN CONCENTRATION (G/DL) BY AUTOMATED 33.5 g/dL Normal 32.0-35.0 [facility] Comment on above: Performed By: #### L [id number] ####[facility] ([facility])[address] [place] [address] Hematocrit (Bld) [Volume fraction] 43.3 % Normal 39.0-55.0 [facility] Comment on above: Performed By: #### L [id number] ####[facility] ([facility] [place] [address] Hemoglobin (Bld) [Mass/Vol] 14.5 g/dL Normal 13.0-17.0 [facility] Comment on above: Performed By: #### L [id number] ####[facility] ([facility] [place] [address] Immature granulocytes (Bld) [#/Vol] 0.02 10*3/uL Normal 0.00-0.20 [facility] Comment on above: Performed By: #### L [id number] ####[facility] (BEAKER)[address] [place] [address] Immature granulocytes/100 WBC (Bld) 0.3 % Normal 0.0-1.0 [facility] Comment on above: Performed By: #### L [id number] ####[facility] (BEAKER)[address] [place] [address] Lymphocytes (Bld) [#/Vol] 0.40 10*3/uL Low 1.20-4.00 [facility] Comment on above: Performed By: #### L [id number] ####[facility] (BEAKER)[address] [place] [address] Lymphocytes/100 WBC (Bld) 6.7 % Low 20.0-45.0 [facility] Comment on above: Performed By: #### L [id number] ####[facility] (BEAKER)[address] [place] [address] MCH (RBC) [Entitic mass] 28.8 pg Normal 27.0-33.0 [facility] Comment on above: Performed By: #### L [id number] ####[facility] (BEAKER)[address] [place] [address] MCV (RBC) [Entitic vol] 85.9 fL Normal 82.0-98.0 [facility] Comment on above: Performed By: #### L [id number] ####[facility] (BEAKER)[address] [place] [address] Monocytes (Bld) [#/Vol] 0.46 10*3/uL Normal 0.10-1.00 [facility] Comment on above: Performed By: #### L [id number] ####[facility] (BEAKER)[address] [place] [address] Monocytes/100 WBC (Bld) 7.7 % Normal 5.0-12.0 [facility] Comment on above: Performed By: #### L [id number] ####[facility] (BEAKER)[address] [place] [address] Neutrophils (Bld) [#/Vol] 5.05 10*3/uL Normal 1.60-7.60 [facility] Comment on above: Performed By: #### L [id number] ####[facility] (BEAKER)[address] [place] [address] Neutrophils/100 WBC (Bld) 84.9 % High 40.0-72.0 [facility] Comment on above: Performed By: #### L [id number] ####[facility] ([facility])[address] [place] [address] NRBC (PER 100 WBCS) BY AUTOMATED COUNT 0.0 % Normal 0.0-0.0 [facility] Comment on above: Performed By: #### L [id number] ####[facility] ([facility])[address] [place] [address] PLATELETS (10*3/UL) IN BLOOD AUTOMATED COUNT 134 10*3/uL Low 150-400 [facility] Comment on above: Performed By: #### L [id number] ####[facility] ([facility])[address] [place] [address] RBC (Bld) [#/Vol] 5.04 10*6/uL Normal 4.20-5.70 [facility] Comment on above: Performed By: #### L [id number] ####[facility] ([facility])[address] [place] [address] WBC (Bld) [#/Vol] 5.95 10*3/uL Normal 4.00-10.60 [facility] Comment on above: Performed By: #### L [id number] ####[facility] ([facility])[address] [place] [address] MAGNESIUMon 08-19-2022 Magnesium [Mass/Vol] 1.6 mg/dL Low 1.9-2.7 [facility] Comment on above: Performed By: #### L [id number] #### [facility] ([facility]) [address] [place] [address] PHOSPHORUSon 08-19-2022 Magnesium [Mass/Vol] 4.7 mg/dL Normal 2.5-5.0 [facility] Comment on above: Performed By: #### L [id number] #### [facility] ([facility] [address] [place] [address] CBC AUTO DIFFon 08-18-2022 BASO # 0.0 103/ul Normal 0.0-0.1 [facility] Comment on above: Performed By: #### C VDTB #### [facility] [address] [place] [address] Dr. Miladys Samuel Basophils/100 WBC (Bld) 0.2 % Normal 0.2-2.0 [facility] Comment on above: Performed By: #### C VDTBH #### [facility] [address] [place] [address] Dr. Miladys Samuel EO # 0.1 103/ul Normal 0.0-0.7 [facility] Comment on above: Performed By: #### C VDTBH #### [facility] [address] [place] [address] Dr. Miladys Samuel Eosinophils/100 WBC (Bld) 1.2 % Normal 0.9-7.0 [facility] Comment on above: Performed By: #### C VDTBH #### [facility] [address] [place] [address] Dr. Miladys Samuel Erythrocyte distribution width (RBC) [Ratio] 13.5 % Normal 11.0-15.0 [facility] Comment on above: Performed By: #### C VDTBH #### [facility] [address] [place] [address] Dr. Miladys Samuel Hematocrit (Bld) [Volume fraction] 46.0 % Normal 42.0-54.0 [facility] Comment on above: Performed By: #### C VDTBH #### [facility] [address] [place] [address] Dr. Miladys Samuel Hemoglobin (Bld) [Mass/Vol] 15.3 g/dL Normal 14.0-18.0 [facility] Comment on above: Performed By: #### C VDTBH #### [facility] [address] [place] [address] Dr. Miladys Samuel IG # 0.02 10e3/ul Normal 0.00-0.03 [facility] Comment on above: Performed By: #### C VDTBH #### [facility] [address] [place] [address] Dr. Miladys Samuel IG % 0.2 % Normal 0.0-0.5 [facility] Comment on above: Performed By: #### C VDTBH #### [facility] [address] [address] [address] Miladys Samuel LYMPH # 0.7 103/ul Critically low 1.2-3.8 [facility] Comment on above: Performed By: #### C VDTBH #### [facility] [address] [address] [address] Miladys Samuel Lymphocytes/100 WBC (Bld) 8.0 % Critically low 20.5-60.0 [facility] Comment on above: Performed By: #### C VDTBH #### [facility] [address] [address] [address] Miladys Samuel MANUAL DIFF REQ NO Normal [facility] Comment on above: Performed By: #### C VDTBH #### [facility] [address] [address] [address] Miladys Samuel MCH (RBC) [Entitic mass] 27.9 pg Normal 25.9-34.0 [facility] Comment on above: Performed By: #### C VDTBH #### [facility] [address] [address] [address] Miladys Samuel MCHC (RBC) [Mass/Vol] 33.3 g/dL Normal 29.9-35.2 [facility] Comment on above: Performed By: #### C VDTBH #### [facility] [address] [address] [address] Miladys Samuel MCV (RBC) [Entitic vol] 83.9 fL Normal 80.0-94.0 [facility] Comment on above: Performed By: #### C VDTBH #### [facility] [address] [address] [address] Miladys Samuel MONO # 0.5 103/ul Normal 0.3-0.8 [facility] Comment on above: Performed By: #### C VDTBH #### [facility] [address] [place] [address] [address] Miladys Samuel Monocytes/100 WBC (Bld) 5.5 % Normal 1.7-12.0 [facility] Comment on above: Performed By: #### C VDTBH #### [facility] [address] [address] [address] Miladys Samuel NEUT # 7.1 103/ul Critically high 1.4-6.5 [facility] Comment on above: Performed By: #### C VDTBH #### [facility] [address] [place] [address] Dr. Miladys Samuel Neutrophils/100 WBC (Bld) 84.9 % Critically high 43.0-75.0 [facility] Comment on above: Performed By: #### C VDTBH #### [facility] [address] [place] [address] Dr. Miladys Samuel Platelet mean volume (Bld) [Entitic vol] 10.1 fL Normal 9.5-13.5 [facility] Comment on above: Performed By: #### C VDTBH #### [facility] [address] [place] [address] Dr. Miladys Samuel PLT 154 103/ul Normal 150-450 [facility] Comment on above: Performed By: #### C VDTBH #### [facility] [address] [place] [address] Dr. Miladys Samuel RBC 5.48 106/ul Normal 4.70-6.10 [facility] Comment on above: Performed By: #### C VDTBH #### [facility] [address] [place] [address] Dr. Miladys Samuel WBC 8.4 103/ul Normal 4.0-11.0 [facility] Comment on above: Performed By: #### C VDTBH #### [facility] [address] [place] [address] ABD/PELV W CONon 08-18-20 CT ABD/PELV W CON CT ABD/PELV W [...] MARY HOGAN Date: 2022-08-18 12:02 Normal [facility] EDNURSon 08-18-2022 EDNURS Pt here from [employer] for SBO. Pt has IV. Normal [facility] EDPROVon 08-18-2022 EDPROV [facility] [address] [facility] [id number] EMERGENCY DEPARTMENT ENCOUNTER CHIEF COMPLAINT Chief Complaint Patient presents with Abdominal Pain GI Problem HISTORY OF PRESENT ILLNESS 67 y/o male with a h/o CAD s/p CABG, DM, HTN, HLD, pancreatitis presents to the ED as a transfer from [facility] for evaluation of SBO. Pt reports [...] Sat Aug 18, 2022 1610 Sent by [facility] - SBO accepted by Dr. Pickard for general surgery [...] surg who will evaluate the pt [JS] 5307 Surg reports they will be admitting the pt [JS] ED Course User Index [JS] JUAN MIGUEL Ramos [WS] Leo Allred MD Diagnoses as of 08/18/222021 SBO (small bowel obstruction) ([facility]) CONSULTS: General surgery PROCEDURES: NG tube placement per RN DIFFERENTIAL DIAGNOSIS / MDM / DISPOSITION / PLAN This patient is a 67-year-old male who presented to the emergency department as a transfer from outside hospital for small bowel obstruction. This patient was accepted in transfer by general surgeon Dr. Pickard. Labs and imag (more content not included)... Normal [facility] EDPROV HPI Chief Complaint Patient presents with Abdominal Pain GI Problem Patient sent by [facility] for admission to general surgery for SBO. Pt accepted by Dr. Pickard Roc Coma Scale Score: 15 Patient History History [...] Sat Aug 18, 2022 1610 Sent by [facility] - SBO accepted by Dr. Pickard for general surgery admission. [WS] 0168 Reviewed records sent with patient from outside [...] surg who will evaluate the pt [JS] 5807 Surg reports they will be admitting the pt [JS] ED Course User Index [JS] JUAN MIGUEL Ramos [WS] Leo Allred MD Diagnoses as of 08/20/22 0958 SBO (small bowel obstruction) ([facility]) MDM Attestion Leo Allred MD 08/20/22 0959 Normal [facility] HPon 08-18-2022 ------ -- Attestation signed by Lazaro Pickard MD at 08/22/2022 1:27 PM Attending Physician Statement I have discussed the case, including pertinent history and exam findings with Dr. Covarrubias, certified surgical tech/first assistant and have personally seen the patient. I agree with the assessment, plan and orders as documented. [phone] pager [phone] phone -- [facility] General Surgery HISTORY & PHYSICAL Reason for Admission: SBO History of Present Illness: Elsa Espinoza is a 67 y.o. male w/ PMH of h/o CAD s/p CABG, DM, HTN, HLD, pancreatitis who presents to [facility] as a transfer from [facility] for evaluation of SBO. atient has [...] 18, hei (more content not included)... Normal [facility] LACTIC ACID WITH 4 HOUR REFL EXon 08-18-2022 LACTATE (MMOL/L) IN SER/PLAS 1.0 mmol/L Normal 0.5-2.2 [facility] Comment on above: Performed By: #### L [id number] #### [facility] ([facility]) [address] [place] [address] LIPASEon 08-18-2022 Lipase [Catalytic activity/Vol] 290.0 U/L Normal 73.0-393.0 [facility] Comment on above: Performed By: #### A MY #### [facility] [address] [address] [address] Miladys Samuel PROF 14(COMP METB)on 022 Albumin [Mass/Vol] 4.2 g/dL Normal 3.4-5.0 [facility] Comment on above: Performed By: #### C VDTB #### [facility] [address] [place], [place] [address] Dr. Miladys Samuel Albumin/Globulin [Mass ratio] 1.2 {ratio} Normal [facility] Comment on above: Performed By: #### C VDTBH #### [facility] [address] [address] [address] Miladys Samuel ALP [Catalytic activity/Vol] 82 U/L Normal 46-116 [facility] Comment on above: Performed By: #### C VDTBH #### [facility] [address] [address] [address] Miladys Samuel ALT [Catalytic activity/Vol] 75 U/L Critically high 16-63 [facility] Comment on above: Performed By: #### C VDTBH #### [facility] [address] [address] [address] Miladys Samuel Anion gap [Moles/Vol] 10.9 mmol/L Normal [facility] Comment on above: Performed By: #### C VDTBH #### [facility] [address] [place] [address] Dr. Miladys Samuel AST [Catalytic activity/Vol] 116 U/L Critically high 15-37 [facility] Comment on above: Performed By: #### C VDTBH #### [facility] [address] [address] [address] Miladys Samuel Bilirubin [Mass/Vol] 0.7 mg/dL Normal 0.2-1.0 [facility] Comment on above: Performed By: #### C VDTBH #### [facility] [address] [address] [address] Miladys Samuel Calcium [Mass/Vol] 9.5 mg/dL Normal 8.5-10.1 [facility] Comment on above: Performed By: #### C VDTBH #### [facility] [address] [address] [address] Miladys Samuel Chloride [Moles/Vol] 98 mmol/L Normal 98-107 [facility] Comment on above: Performed By: #### C VDTBH #### [facility] [address] [address] [address] Miladys Samuel CO2 [Moles/Vol] 31.4 mmol/L Normal 21.0-32.0 [facility] Comment on above: Performed By: #### C VDTBH #### [facility] [address] [place] [address] Dr. Miladys Samuel Creatinine [Mass/Vol] 1.04 mg/dL Normal 0.70-1.30 [facility] Comment on above: Performed By: #### C VDTBH #### [facility] [address] [place] [address] Dr. Miladys Samuel EGFR-AF [place] ISLANDER >60 Normal >=60 [facility] Comment on above: Performed By: #### C VDTBH #### [facility] [address] [place] [address] Dr. Miladys Samuel EGFR-NON AF [place]ER >60 Normal >=60 [facility] Comment on above: Performed By: #### C VDTBH #### [facility] [address] [place] [address] Dr. Miladys Samuel Globulin (S) [Mass/Vol] 3.5 g/dL Normal [facility] Comment on above: Performed By: #### C VDTBH #### [facility] [address] [place] [address] Dr. Miladys Samuel Glucose [Mass/Vol] 181 mg/dL Critically high 74-106 [facility] Comment on above: Performed By: #### C VDTBH #### [facility] [address] [place] [address] Dr. Miladys Samuel Potassium [Moles/Vol] 4.3 mmol/L Normal 3.5-5.1 [facility] Comment on above: Performed By: #### C VDTBH #### [facility] [address] [place] [address] Dr. Miladys Samuel Protein [Mass/Vol] 7.7 g/dL Normal 6.4-8.2 [facility] Comment on above: Performed By: #### C VDTBH #### [facility] [address] [place] [address] Dr. Miladys Samuel Sodium [Moles/Vol] 136 mmol/L Normal 136-145 [facility] Comment on above: Performed By: #### C VDTBH #### [facility] [address] [place], [place] [address] Dr. Miladys Samuel Urea nitrogen [Mass/Vol] 15.0 mg/dL Normal 7.0-18.0 [facility] Comment on above: Performed By: #### C VDTBH #### [facility] [address] [place], [place] [address] Dr. Miladys Samuel Urea nitrogen/Creatinine [Mass ratio] 14.4 mg/mg Normal [facility] Comment on above: Performed By: #### C VDTBH #### [facility] [address] [place], [place] [address] Dr. Miladys Samuel XR Knee Complete Left*on [...] by Justo Vidal on 02/08/2022 1442 Normal [facility] - Chemistry and C hemistry - challengeon 11-14-2021 Cholesterol [Mass/Vol] 118\S\118 below low threshold 140-200 [facility] y 250 DO Work Phone: Comment on above: Chol less than 200 m g/dl low risk Chol 201-239 mg/dl borderline risk Chol 240 mg/dl and greater high risk Cholesterol in LDL [Mass/Vol] 65\S\65 Normal 0-100 [facility] 250 DO Work Phone: Comment on above: LDL ATP III CLASSIFI CATION LDL less than 100 mg/dL Optimal LDL 100-129 mg/dL Near or above optimal LDL 130-159 mg/dL Borderline high LDL 160-189 mg/dL High LDL greater than 189 mg/dL Very high Laboratory - Microbiology an d Antimicrobial susceptibilityon 11-14-2021 SARS-CoV-2 (COVID-19) RNA FELY+probe Ql (Unsp spec) [facility] 250 DO Work Phone: No Panel Informationon 11-14 39.3\S\39.3 above high threshold 25.1-36.5 [facility] 250 DO Work Phone: Comment on above: PERFORMED BY:[facility] [place] [id number] MEDICAL DIRECTORJORDANA THACKER M.D. 1.0\S\1.0 Normal -[facility] 250 DO Work Phone: Comment on above: [...] valves: 3 - 4.5 11.5\S\11.5 Normal 9.0-12.9 [facility] 250 DO Work Phone: 0.0\S\0.0 Normal 0-0.5 [facility] 250 DO Work Phone: Comment on above: PERFORMED BY:[facility] [place], [place] [phone] MEDICAL DIRECTORJORDANA THACKER M.D. 0.2\S\0.2 Normal 0.0-0.45 [facility] 250 DO Work Phone: 0.4\S\0.4 Normal 0.0-0.8 [facility] 250 DO Work Phone: 0.7\S\0.7 below low threshold 1.00-4.8 -[facility] 250 DO Work Phone: 2.5\S\2.5 Normal 1.8-7.7 [facility] 250 DO Work Phone: 0.6\S\0.6 Normal . [facility] 250 DO Work Phone: [phone] 4.5\S\4.5 Normal . [facility] 250 DO Work Phone: [phone] 10.0\S\10.0 Normal . [facility] 250 DO Work Phone: [phone] 18.3\S\18.3 Normal . [facility] 250 DO Work Phone: [phone] 66.6\S\66.6 Normal . [facility] 250 DO Work Phone: [phone] 7.5\S\7.5 Normal 6.6-10.1 [facility] 250 DO Work Phone: [phone] 185\S\185 Normal 150-450 [facility] 250 DO Work Phone: [phone] 14.7\S\14.7 Normal 12.0-14.8 [facility] 250 DO Work Phone: [phone] 32.4\S\32.4 below low threshold 32.5-35.6 [facility] 250 DO Work Phone: [phone] 26.0\S\26.0 below low threshold 27.5-35.2 [facility] 250 DO Work Phone: [phone] 80.3\S\80.3 below low threshold 83.5-101 [facility] 250 DO Work Phone: [phone] 34.2\S\34.2 below low threshold 38.8-50.0 [facility] 250 DO Work Phone: [phone] 11.1\S\11.1 below low threshold 13.0-17.0 [facility] 250 DO Work Phone: [phone] 4.26\S\4.26 Normal 3.90-5.60 [facility] 250 DO Work Phone: [phone] 3.7\S\3.7 below low threshold 4.1-10.5 [facility] 250 DO Work Phone: [phone] 27.9\S\27.9 Normal 22.0-30.0 [facility] 250 DO Work Phone: [phone] 101\S\101 Normal 95-114 [facility] 250 DO Work Phone: 4.4\S\4.4 Normal 3.5-5.1 [facility] 250 DO Work Phone: 138\S\138 Normal 136-146 [facility] 250 DO Work Phone: [phone] 6\S\6 below low threshold 9-23 [facility] DO Work Phone: [phone] > 60 Normal [facility] DO Work Phone: [phone] Comment on above: GFR estimated refere nce range: According to KDOQI guidelines, <60 ml/min/1.73m2 is sufficient to diagnose a patient with chronic kidney disease. 0.99\S\0.99 Normal 0.64-1.27 [facility] 250 DO Work Phone: [phone] 3.3\S\3.3 Normal <5.0 [facility] DO Work Phone: [phone] Comment on above: PERFORMED BY:[address] [address] [address] [place], [place] [phone] MEDICAL DIRECTORJORDANA THACKER M.D. 17\S\17 Normal [facility] [address] DO Work Phone: [phone] 86\S\86 Normal 35-149 [facility] DO Work Phone: Comment on above: TRIG ATP III CLASSIF ICATION TRIG less than 150 mg/dL Normal TRIG 150-199 mg/dL Borderline high TRIG 200-500 mg/dL High TRIG greater than 500 mg/dL Very high Standard traceable to the Center for Disease Conrtrol and Prevention (CDC) test method. 36\S\36 Normal 29-71 [facility] 250 DO Work Phone: Comment on above: HDL CHOL ATP-III CLA SSIFICATION Cardiovascular Risk HDL > or equal to 60 mg/dL LOW HDL < 40 mg/dL HIGH Negative Normal Negative [facility] 250 DO Work Phone: Comment on above: This is a duplicate Daphnie SARS Antigen (ESTELA) result to be used for statistical tracking purpose only.PERFORMED BY:[address] [place], [place] [phone] MEDICAL DIRECTORJORDANA THACKER M.D. CT ABDOMEN AND PELVIS W ORAL CONTRASTon 11-09-2021 CT ABDOMEN AND PELVIS W ORAL CONTRAST [facility] Department of Radiology [address] [place] [address] Patient Name: ELSA ESPINOZA : 1955 Sex: M Age: Race: White Pt. Location: Patient Status: O Ordered Date: 11/07/2021 3:05:00 PM Completed Date: 11/09/2021 12:18 PM Requesting Provider: LAZARO PICKARD Attending Provider: LAZARO PICKARD Report Copy To: NIKUNJ MARI Signs & Symptoms: R10.31 Right lower quadrant pain I10 History: Tiffany needs to come early to drink Comments: [...] wall. Electronically signed: Cristal Fernandes. Transcribed by: [email or web address], User Resident: Electronically Signed by: CRISTAL FERNANDES @ 11/09/2021 01:09 PM Normal [facility] [place] [facility] CARDIAC STRESS/REST INJE CTIONon 11-06-2021 [facility] CARDIAC STRESS/REST INJECTION Patient Name: ELSA ESPINOZA STUDY: MYOCARDIAL PERFUSION STRESS TEST WITH EXERCISE CONVERTED TO LEXISCAN Performing facility: [facility], [address] [place] [address], [address], [address] Provider: Ivanna Chavarria DO, [facility] PCP: Dr. MARI Supervising provider: Ivnana Graves MD, [facility] INDICATION: AORTIC STENOSIS; ATHEROSCLEROSIS OF CABG OF [place] HEART WITHOUT ANGINA PECTORIS; MERIDA; ESSENTIAL HTN; HYPERLIPIDEMIA. HISTORY: Gender: M; Age: 66 y/o ; Height: 180.34 cm; Weight: 82.9698398 kg. HIGH CHOLESTEROL; DIABETES; HTN; MILD ; FATIGE. Denies smoking. S/P PTCA CABG on 2001. COMPARISON: No comparison. ACCESSION NUMBER(S): [id number]; [id number]; [id number] ORDERING CLINICIAN: LAURA BALDERAS TECHNIQUE: ONE DAY [...] Electronically signed by: AVERY LEMON MD Normal [facility] No Panel Informationon 11-06 Normal -[facility] 250 DO Work Phone: Office Visit (Cardiology)on 10-11-2021 Follow-up visit Diagnoses/Problems Assessed Dyspnea on exertion (786.09) (R06.00) 2 month progressive worsening with change in exercise capacity Comfortable at rest No pulmonary history Atherosclerosis of coronary artery bypass graft of iroquois heart without angina pectoris (414.05) (I25.810) 2001 CABG March 2017: PCI/PALMA to SVG- [id number] HONG-LAD patent Radial-dRCA patent SVG-Diag GUITAR REPAIR TECHNICIAN March [address] depression [...] Atherosclerosis of coronary artery bypass graft of iroquois heart without angina pectoris, Dyspnea on exertion [...] NTG sl as needed 2. Treadmill MPI (MERIAD, change in exercise capacity) 3. Return for [...] Atherosclerosis of coronary artery bypass graft of iroquois heart without angina pectoris (414.05) (I25.810) BMI 26.0-26.9,adult (V85.22) (Z68.26) Diabetes mellitus (250.00) (E11.9) Essential hypertension (401.9) (I10) Fatigue (780.79) (R53.83) GERD (gastroesophageal reflux disease) (530.81 (more content not included)... Normal [facility].on 022 Fall risk assessment a) No falls within the last year -[facility] 250 DO Work Phone: Tobacco use status CP b) No -[facility] 250 DO Work Phone: Basic Metabolic Panelon 12- Anion gap [Moles/Vol] 17 mmol/L Normal - [facility] [employer] Comment on above: Result Comment: Effe ctive 09/14/2019 reference range changed. Performed By: #### L IPD, CBCAD, HEP, TSH, VITD, BMP #### [facility] [address], [place] [id number] Calcium [Mass/Vol] 9.9 mg/dL Normal 8.6-10.2 [facility] [place] [employer] Comment on above: Performed By: #### L IPD, CBCAD, HEP, TSH, VITD, BMP #### [facility] [address] [place], [place] [id number] Chloride [Moles/Vol] 101 mmol/L Normal 98-107 [facility] Comment on above: Performed By: #### L IPD, CBCAD, HEP, TSH, VITD, BMP #### [facility] [address] [place], [place] [id number] CO2 [Moles/Vol] 28 mmol/L Normal 20-31 [facility] [facility] Comment on above: Performed By: #### L IPD, CBCAD, HEP, TSH, VITD, BMP #### [facility] [address] [place], [place] [id number] Creatinine [Mass/Vol] 0.9 mg/dL Normal 0.7-1.4 [facility] Comment on above: Performed By: #### L IPD, CBCAD, HEP, TSH, VITD, BMP #### [facility] [address], [place] [id number] eGFRAA 107 mL/min/1.73m2 Normal >60 [facility] Special[facility] Comment on above: Performed By: #### L IPD, CBCAD, HEP, TSH, VITD, BMP #### [facility] [address], [place] [id number] eGFRNAA 88 mL/min/1.73m2 Normal >60 [facility] Comment on above: Performed By: #### L IPD, CBCAD, HEP, TSH, VITD, BMP #### [facility] [address], [place] [id number] Glucose [Mass/Vol] 116 mg/dL High 65-99 [facility] [place] [employer] Comment on above: Result Comment: For FASTING Glucose --- ADA reference ranges: Normal 65-99 mg/dl Prediabetes 100-125 Diabetes >/= 126 Performed By: #### L IPD, CBCAD, HEP, TSH, VITD, BMP #### [facility] [address], [place] [id number] Potassium [Moles/Vol] 4.2 mmol/L Normal 3.5-5.5 [facility] Comment on above: Performed By: #### L IPD, CBCAD, HEP, TSH, VITD, BMP #### [facility] [address], [place] [id number] Sodium [Moles/Vol] 142 mmol/L Normal 135-146 [facility] Comment on above: Performed By: #### L IPD, CBCAD, HEP, TSH, VITD, BMP #### [facility] [address], [place] [id number] Urea nitrogen [Mass/Vol] 11 mg/dL Normal 7-25 [facility] Comment on above: Performed By: #### L IPD, CBCAD, HEP, TSH, VITD, BMP #### [facility] [address], [place] [id number] Complete Blood Count with Au to Diffon 08-25-2021 Basophils (Bld) [#/Vol] 0.02 10*3/uL Normal 0.00-0.20 [facility] Comment on above: Performed By: #### L IPD, CBCAD, HEP, TSH, VITD, BMP #### [facility] [address], [place] [id number] Basophils/100 WBC (Bld) 0.4 % Normal [facility] Comment on above: Performed By: #### L IPD, CBCAD, HEP, TSH, VITD, BMP #### [facility] [address], [place] [id number] Eosinophils (Bld) [#/Vol] 0.16 10*3/uL Normal 0.02-0.50 [facility] Comment on above: Performed By: #### L IPD, CBCAD, HEP, TSH, VITD, BMP #### [facility] [address], [place] [id number] Eosinophils/100 WBC (Bld) 3.4 % Normal [facility] Comment on above: Performed By: #### L IPD, CBCAD, HEP, TSH, VITD, BMP #### [facility] [address], [place] [id number] Erythrocyte distribution width (RBC) [Ratio] 13.7 % Normal 11.0-15.0 [facility] Comment on above: Performed By: #### L IPD, CBCAD, HEP, TSH, VITD, BMP #### [facility] [address], [place] [id number] Hematocrit (Bld) [Volume fraction] 42.5 % Normal 38.5-50.0 [facility] Comment on above: Performed By: #### L IPD, CBCAD, HEP, TSH, VITD, BMP #### [facility] [address], [place] [id number] Hemoglobin (Bld) [Mass/Vol] 13.7 g/dL Normal 13.0-17.1 [facility] Comment on above: Performed By: #### L IPD, CBCAD, HEP, TSH, VITD, BMP #### [facility] [address], [place] [id number] Lymphocytes (Bld) [#/Vol] 1.1 10*3/uL Normal 0.9-3.9 [facility] Comment on above: Performed By: #### L IPD, CBCAD, HEP, TSH, VITD, BMP #### [facility] [address], [place] [id number] Lymphocytes/100 WBC (Bld) 23.9 % Normal [facility] Comment on above: Performed By: #### L IPD, CBCAD, HEP, TSH, VITD, BMP #### [facility] [address], [place] [id number] MCH (RBC) [Entitic mass] 27.5 pg Normal 27.0-33.0 [facility] Comment on above: Performed By: #### L IPD, CBCAD, HEP, TSH, VITD, BMP #### [facility] [address], [place] [id number] MCHC (RBC) [Mass/Vol] 32.2 g/dL Normal 32.0-36.0 [facility] Comment on above: Performed By: #### L IPD, CBCAD, HEP, TSH, VITD, BMP #### [facility] [address], [place] [id number] MCV (RBC) [Entitic vol] 85 fL Normal 80-100 [facility] Comment on above: Performed By: #### L IPD, CBCAD, HEP, TSH, VITD, BMP #### [facility] [address], [place] [id number] Monocytes (Bld) [#/Vol] 0.5 10*3/uL Normal 0.2-0.9 [facility] Comment on above: Performed By: #### L IPD, CBCAD, HEP, TSH, VITD, BMP #### [facility] [address], [place] [id number] Monocytes/100 WBC (Bld) 10.7 % Normal [facility] Comment on above: Performed By: #### L IPD, CBCAD, HEP, TSH, VITD, BMP #### [facility] [address], [place] [id number] Neutrophils (Bld) [#/Vol] 2.9 10*3/uL Normal 1.5-7.8 [facility] Comment on above: Performed By: #### L IPD, CBCAD, HEP, TSH, VITD, BMP #### [facility] [address], [place] [id number] Neutrophils/100 WBC (Bld) 61.2 % Normal [facility] Comment on above: Performed By: #### L IPD, CBCAD, HEP, TSH, VITD, BMP #### [facility] [address], [place] [id number] Platelet mean volume (Bld) [Entitic vol] 10.30 fL Normal 7.50-12.50 [facility] Comment on above: Performed By: #### L IPD, CBCAD, HEP, TSH, VITD, BMP #### [facility] [address], [place] [id number] Platelets (Bld) [#/Vol] 157 10*3/uL Normal 140-400 [facility] [employer] Comment on above: Performed By: #### L IPD, CBCAD, HEP, TSH, VITD, BMP #### [facility] [address], [place] [id number] RBC (Bld) [#/Vol] 4.98 10*6/uL Normal 4.20-5.80 [facility] [employer] Comment on above: Performed By: #### L IPD, CBCAD, HEP, TSH, VITD, BMP #### [facility] [address], [place] [id number] RDW-SD 42.2 fL Normal 37.0-50.0 [facility] [employer] Comment on above: Performed By: #### L IPD, CBCAD, HEP, TSH, VITD, BMP #### [facility] [address], [place] [id number] WBC (Bld) [#/Vol] 4.8 10*3/uL Normal 3.8-11.0 [facility] [employer] Comment on above: Performed By: #### L IPD, CBCAD, HEP, TSH, VITD, BMP #### [facility] [address], [place] [id number] Hemoglobin A1Con 08-25-2021 EAG 208.73 Normal [facility] [employer] Comment on above: Performed By: #### A 1C #### [facility] [address], [place] [id number] HbA1c (Bld) [Mass fraction] 8.9 % High 4.0-6.0 [facility] [employer] Comment on above: Performed By: #### A 1C #### [facility] [address], [place] [id number] Hepatic Function Panelon Albumin [Mass/Vol] 4.7 g/dL Normal 3.6-5.1 [facility] [employer] Comment on above: Performed By: #### L IPD, CBCAD, HEP, TSH, VITD, BMP #### [facility] [address], [place] [id number] Albumin/Globulin [Mass ratio] 2.2 {ratio} Normal 1.0-2.5 [facility] [employer] Comment on above: Performed By: #### L IPD, CBCAD, HEP, TSH, VITD, BMP #### [facility] [address], [place] [id number] ALP [Catalytic activity/Vol] 60 U/L Normal 40-129 [facility] Comment on above: Performed By: #### L IPD, CBCAD, HEP, TSH, VITD, BMP #### [facility] [address], [place] [id number] ALT [Catalytic activity/Vol] 20 U/L Normal 9-46 [facility] Comment on above: Result Comment: 08/09 Female reference range changed. Performed By: #### L IPD, CBCAD, HEP, TSH, VITD, BMP #### [facility] [address], [place] [id number] AST [Catalytic activity/Vol] 24 U/L Normal 10-40 [facility] Comment on above: Performed By: #### L IPD, CBCAD, HEP, TSH, VITD, BMP #### [facility] [address], [place] [id number] Bilirubin [Mass/Vol] 0.48 mg/dL Normal 0.30-1.20 [facility] Comment on above: Performed By: #### L IPD, CBCAD, HEP, TSH, VITD, BMP #### [facility] [address], [place] [id number] DBIL <0.2 Normal [facility] Comment on above: Result Comment: Refe rence range change 07/26/2017. Prior reference range 0.1-0.3 mg/dL. Performed By: #### L IPD, CBCAD, HEP, TSH, VITD, BMP #### [facility] [address], [place] [id number] Globulin (S) [Mass/Vol] 2.1 g/dL Normal 1.9-3.7 [facility] Comment on above: Performed By: #### L IPD, CBCAD, HEP, TSH, VITD, BMP #### [facility] [address], [place] [id number] Protein [Mass/Vol] 6.8 g/dL Normal 6.1-8.1 [facility] Comment on above: Performed By: #### L IPD, CBCAD, HEP, TSH, VITD, BMP #### [facility] [address], [place] [id number] Lipid Panelon 08-25-2021 Cholesterol [Mass/Vol] 172 mg/dL Normal 125-200 [facility] Comment on above: Result Comment: Low risk < 200mg/dL Borderline risk 201-239 mg/dl High risk > or equal to 240 Performed By: #### L IPD, CBCAD, HEP, TSH, VITD, BMP #### [facility] [address], [place] [id number] Cholesterol in HDL [Mass/Vol] 47 mg/dL Normal >40 [facility] [employer] Comment on above: Result Comment: High Cardiovascular Risk HDL <40 mg/dL Low Cardiovascular Risk HDL > or equal to 60 mg/dl Performed By: #### L IPD, CBCAD, HEP, TSH, VITD, BMP #### [facility] [address], [place] [id number] Cholesterol in LDL [Mass/Vol] 79 mg/dL Normal [facility] Comment on above: Result Comment: LDL ATP III CLASSIFICATION LDL less than 100 mg/dl Optimal LDL 100-129 mg/dl Near or above optimal LDL 130-159 Borderline high LDL 160-189 High LDL greater than 189 mg/dl Very High Performed By: #### L IPD, CBCAD, HEP, TSH, VITD, BMP #### [facility] [address], [place] [id number] Cholesterol in VLDL [Mass/Vol] 46 mg/dL Normal [facility] [employer] Comment on above: Performed By: #### L IPD, CBCAD, HEP, TSH, VITD, BMP #### [facility] [address] [facility] [place] [id number] Cholesterol.total/C holesterol in HDL [Mass ratio] 4 {ratio} Normal [facility] Comment on above: Performed By: #### L IPD, CBCAD, HEP, TSH, VITD, BMP #### [facility] [address] [facility] [place] [id number] Triglyceride [Mass/Vol] 231 mg/dL High 30-150 [facility] [employer] Comment on above: Result Comment: TRIG ATPIII CLASSIFICATIONS TRIG less than 150 mg/dl Normal TRIG 150-199 mg/dl Borderline High TRIG 200-500 mg/dl High TRIG greather than 500 mg/dl Very High Performed By: #### L IPD, CBCAD, HEP, TSH, VITD, BMP #### [facility] [address], [place] [id number] Prostatic Specific Antigen, Totalon 08-25-2021 TPSA 1.270 ng/mL Normal <4.000 [facility] [employer] Comment on above: Result Comment: PSA Test Method: ECLIA/Alda e 601 Performed By: #### P SA #### [facility] [address], [place] [id number] TSHon 08-25-2021 TSH 1.520 uIU/mL Normal 0.400-4.500 [facility] [employer] Comment on above: Performed By: #### L IPD, CBCAD, HEP, TSH, VITD, BMP #### [facility] [address], [place] [id number] Vitamin D 25-OHon 08-25-2021 VIT D 25 OH 22 ng/ml Low >29 [facility] [employer] Comment on above: Result Comment: Anayeli min D Status Deficiency <20 ng/mL Insufficiency 20-29 ng/mL Optimal 30-100 ng/mL Possible Toxicity >=150 ng/mL Performed By: #### L IPD, CBCAD, HEP, TSH, VITD, BMP #### [facility] [address], [place] [id number] Echocardiogramon 05-03-[address], [address] [place] [address] TRANSTHORACIC ECHOCARDIOGRAM REPORT Patient Name: ELSA Hutchinson Physician: [id number] Leo ESPINOZA MD Study Date: 05/03/2021 Referring [id number] LEO CHAVARRIA Physician: MRN/PID: [id number] PCP: Nikunj Mari Accession/Order#: [id number] Department [facility] Location: Date of : 1955 Fellow: Gender: M Nurse: 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: Jamila Obrien RD, T Height: 180.34 cm CC Report to: Weight: 84.82 kg Study Type: Echocardiogram BSA: 2.05 m2 Blood Pressure: 156 /80 mmHg Diagnosis/ICD: I35.0-Nonrheumatic aortic (valve) stenosis Indication: CAD, Diabetes, HTN, Hyperlipidemia, MA and PTCA-2017, CABG Procedure/CPT: Echo Complete w Full [id number] Study Detail: The following Echo studies were [...] 0.6 m/s (0.6-0.9m/s) PV Max P.6 mmHg [id number] Leo Graves MD Electronically signed on 05/04/2021 at 6:20:39 PM Final Normal [facility] 04-18-2021 ALT [Catalytic activity/Vol] 24 U/L Normal 9-46 [facility] Comment on above: Result Comment: NO C OLLECTION DATE RECEIVED. WE HAVE USED THE DATE THE SPECIMEN WAS RECEIVED BY THIS LABORATORY THE COLLECTION DATE. IF THIS IS INCORRECT, PLEASE CONTACT CLIENT SERVICES. PHONE NUMBER: [phone] Performed By: #### 8 23, 822, 17981 #### [facility] [place] [address] [employer]: Ck Jarvis MD Argelia 04-18-2021 AST [Catalytic activity/Vol] 26 U/L Normal 10-35 [facility] Comment on above: Performed By: #### 8 23, 822, 56903 #### [facility] [place] [address] Gun Fertilizer: Ck Jarvis MD LIPID PANEL WITH REFLEX TO D IRECT LDLon 04-18-2021 Cholesterol [Mass/Vol] 151 mg/dL Normal <200 [facility] Comment on above: Order Comment: FASTI NG: UNKNOWN Performed By: #### 8 23, 822, 44681 #### [facility] [place] [address] Gun Fertilizer: Ck Jarvis MD Cholesterol in HDL [Mass/Vol] 40 mg/dL Normal > OR = 40 [facility] Comment on above: Order Comment: FASTI NG: UNKNOWN Performed By: #### 8 23, 822, 93514 #### [facility] [place] [address] Gun Fertilizer: Ck Jarvis MD Cholesterol in LDL [Mass/Vol] [...] LDL-C. Ramy HERNANDEZ et al. GENIA. 2013;310(19): 0788-4981 (http://[email or web address].[email or web address]/[email or web address]) Performed By: #### 8 23, 822, 79252 #### [place] [address] Gun Fertilizer: Ck Jarvis MD Cholesterol.total/C holesterol in HDL [Mass ratio] 3.8 {ratio} Normal <5.0 [facility] Comment on above: Order Comment: FASTI NG: UNKNOWN Performed By: #### 8 , 822, 04264 #### [facility] [address], [address] [place] [address] Gun Fertilizer: Ck Jarvis MD NON HDL CHOLESTEROL 111 mg/dL (calc) Normal <130 [facility] Comment on above: Order Comment: FASTI NG: UNKNOWN Result Comment: For patients with diabetes plus 1 major ASCVD risk factor, treating to a non-HDL-C goal of <100 mg/dL (LDL-C of <70 mg/dL) is considered a therapeutic option. Performed By: #### 8 , 822, 48898 #### [facility] [address], [address] [place] [address] Gun Fertilizer: Ck Jarvis MD Triglyceride [Mass/Vol] 216 mg/dL High <150 [facility] Comment on above: Order Comment: FASTI NG: UNKNOWN Result Comment: If a non-fasting specimen was collected, consider repeat triglyceride testing on a fasting specimen if clinically indicated. Yumiko et al. J. of Clin. Lipidol. 2015;9:129-169. Performed By: #### 8 , 822, 51034 #### [facility] [address], [address] [place] [address] Gun Fertilizer: Ck Jarvis MD RENALon 03-20-2021 RENAL [facility] Department of Radiology [address] [place] [address] Patient Name: ELSA ESPINOZA : 1955 Sex: M Age: Race: White Pt. Location: [facility] Patient Status: D Ordered Date: 03/01/2021 9:55:00 AM Completed Date: 03/20/2021 04:00 PM Requesting Provider: PERICO ADAM Attending Provider: PERICO ADAM Report Copy To: Signs & Symptoms: N13.30 Unspecified hydronephrosis I10 History: [place] [address] / per cigna/ passed med nec *er [...] redemonstrated. Electronically signed: Cristal Fernandes. Transcribed by: [email or web address], User Resident: Electronically Signed by: CRISTAL FERNANDES @ 03/21/2021 06:44 AM Normal [facility] *URINE CULTUREon 02-07-2021 *URINE CULTURE Clinical Report: (D) Specimen/Source: URINE/CLEAN VOID URINE Collected: 02/07/2021 20:35 Status: Final Last Updated: 02/10/2021 08:00 CULT RES (Final) <10,000 Cfu/Ml No Significant Growth Normal [facility] Comment on above: Performed By: #### 3 0339 #### [facility] [address] BASIC METABOLIC PANELon 06-0 Calcium [Mass/Vol] 9.4 mg/dL Normal 8.6-10.3 [facility] Comment on above: Performed By: #### 0 0071 #### [facility] [address] [facility] [place] [address], [facility] Chloride [Moles/Vol] 96 mmol/L Low 98-107 [facility] Comment on above: Performed By: #### 0 0071 #### [facility] [address] [place] [address], [facility] CO2 [Moles/Vol] 28 mmol/L Normal 21-31 [facility] Comment on above: Performed By: #### 0 0071 #### [facility] [address] [facility] [place] [address], [facility] Creatinine [Mass/Vol] 0.87 mg/dL Normal 0.70-1.30 [facility] Comment on above: Performed By: #### 0 0071 #### [facility] [address] [place] [address], [facility] GFR/1.73 sq M.predicted among blacks MDRD (S/P/Bld) [Vol rate/Area] mL/min/{1.73_m2} Normal >60 [facility] Comment on above: Performed By: #### 0 0071 #### [facility] [address] [facility] [place] [place] [address], [facility] GFR/1.73 sq M.predicted among non-blacks MDRD (S/P/Bld) [Vol rate/Area] mL/min/{1.73_m2} Normal >60 [facility] Comment on above: Performed By: #### 0 0071 #### [facility] [address] Glucose [Mass/Vol] 220 mg/dL High 70-100 [facility] Comment on above: Performed By: #### 0 0071 #### [facility] [address] Potassium [Moles/Vol] 4.1 mmol/L Normal 3.5-5.1 [facility] Comment on above: Performed By: #### 0 0071 #### [facility] [address] Sodium [Moles/Vol] 135 mmol/L Low 136-145 [facility] Comment on above: Performed By: #### 0 0071 #### [facility] [address] Urea nitrogen [Mass/Vol] 9 mg/dL Normal 7-25 [facility] Comment on above: Performed By: #### 0 1 #### [facility] [address] CBC W/DIFFon 02-07-2021 ABS IMM GRANS 0.0 10*3/uL Normal 0.0-0.2 [facility] Comment on above: Performed By: #### 5 3 #### [facility] [address] [place] [address], [facility] ABS NEUTROPHILS 3.1 10*3/uL Normal 1.6-7.6 [facility] Comment on above: Performed By: #### 5 102 #### [facility] [address] [place] [address], [facility] Basophils (Bld) [#/Vol] 0.0 10*3/uL Normal 0.0-0.2 [facility] Comment on above: Performed By: #### 5 0103 #### [facility] [address] [facility] [place] [address], [facility] Basophils/100 WBC (Bld) 0.4 % Normal 0.0-1.0 [facility] Comment on above: Performed By: #### 5 0103 #### [facility] [address] [facility] [place] [address], [facility] Eosinophils (Bld) [#/Vol] 0.1 10*3/uL Normal 0.0-0.5 [facility] Comment on above: Performed By: #### 5 0103 #### [facility] [address] [facility] [place] [address], [facility] Eosinophils/100 WBC (Bld) 2.2 % Normal 0.0-6.0 [facility] Comment on above: Performed By: #### 5 0103 #### [facility] [address] [facility] [address] Erythrocyte distribution width (RBC) [Ratio] 15.0 % Normal 11.5-15.0 [facility] Comment on above: Performed By: #### 5 0103 #### [facility] [address] [facility] [place] [place] [address], [facility] Hematocrit (Bld) [Volume fraction] 40.2 % Normal 39.0-50.0 [facility] Comment on above: Performed By: #### 5 0103 #### [facility] [address] [facility] [place] [place] [address], [facility] Hemoglobin (Bld) [Mass/Vol] 13.0 g/dL Normal 13.0-17.0 [facility] Comment on above: Performed By: #### 5 3 #### [facility] [address] [place] [address], [facility] IMMATURE GRANS 0.4 % Normal 0.0-1.0 [facility] Comment on above: Performed By: #### 5 0103 #### [facility] [address] [facility] [place] [address], [facility] Lymphocytes (Bld) [#/Vol] 0.9 10*3/uL Low 1.2-4.0 [facility] Comment on above: Performed By: #### 5 3 #### [facility] [address] [place] [address], [facility] Lymphocytes/100 WBC (Bld) 19.9 % Low 20.0-45.0 [facility] Comment on above: Performed By: #### 5 3 #### [facility] [address] [place] [address], [facility] MCH (RBC) [Entitic mass] 25.9 pg Low 27.0-33.0 [facility] Comment on above: Performed By: #### 5 102 #### [facility] [address] MCHC (RBC) [Mass/Vol] 32.3 g/dL Normal 32.0-35.0 [facility] Comment on above: Performed By: #### 5 3 #### [facility] [address] [facility] [place] [address], [facility] MCV (RBC) [Entitic vol] 80.2 fL Low 82.0-98.0 [facility] Comment on above: Performed By: #### 5 3 #### [facility] [address] [place] [address], [facility] Monocytes (Bld) [#/Vol] 0.5 10*3/uL Normal 0.1-1.0 [facility] Comment on above: Performed By: #### 5 3 #### [facility] [address] [facility] [place] [address], [facility] MONOS 10.3 % Normal 5.0-12.0 [facility] Comment on above: Performed By: #### 5 0103 #### [facility] [address] [facility] [place] [place] [address], [facility] Neutrophils/100 WBC (Bld) 66.8 % Normal 40.0-72.0 [facility] Comment on above: Performed By: #### 5 0103 #### [facility] [address] [place] [address], [facility] Nucleated RBC/100 WBC (Bld) [Ratio] 0 % Normal 0-0 [facility] Comment on above: Performed By: #### 5 0103 #### [facility] [address] [place] [address], [facility] PLAT CNT 147 10*3/uL Low 150-400 [facility] Comment on above: Performed By: #### 5 3 #### [facility] [address] [place] [address], [facility] RBC (Bld) [#/Vol] 5.01 10*6/uL Normal 4.20-5.70 [facility] Comment on above: Performed By: #### 5 0103 #### [facility] [address] [place] [address], [facility] WBC (Bld) [#/Vol] 4.58 10*3/uL Normal 4.00-10.60 [facility] Comment on above: Performed By: #### 5 102 #### [facility] [address] ABDOMEN AND PELVIS WO CON TRASTon 02-07-2021 CT ABDOMEN AND PELVIS WO CONTRAST [facility] Department of Radiology [address] [place] [address] Patient Name: ELSA ESPINOZA : 1955 Sex: M Age: Race: White Pt. Location: [facility] Patient Status: E Ordered Date: 02/07/2021 9:25:00 PM Completed Date: 02/07/2021 09:51 PM Requesting Provider: ASHLEE ARIMJO Attending Provider: ESE KELLER Report Copy To: [...] nephrolithiasis. Electronically signed: Shauna Green. Transcribed by: [email or web address], User Resident: Electronically Signed by: SHAUNA GREEN @ 02/07/2021 10:10 PM Normal [facility] Comment on above: Order Comment: Renal Stones URINALYSIS REFLEXon 02-08-20 Appearance (U) CLOUDY Abnormal CLEAR [facility] Comment on above: Order Comment: Crite farhan for reflexing a culture was not met. Please call the lab at [phone] within 24 hours of collection time if culture is needed Performed By: #### 3 0965 #### [facility] [address] [place] [address], [facility] Bilirubin Ql (U) Negative Normal NEGATIVE [facility] Comment on above: Order Comment: Crite farhan for reflexing a culture was not met. Please call the lab at 7668 within 24 hours of collection time if culture is needed Performed By: #### 3 0965 #### [facility] [address] [place] [address], [facility] Color (U) MARA Abnormal YELLOW [facility] Comment on above: Order Comment: Crite farhan for reflexing a culture was not met. Please call the lab at 7668 within 24 hours of collection time if culture is needed Performed By: #### 3 0965 #### [facility] [address] [place] [address], [facility] EPIS NONE SEEN Normal FEW,OCC,NON E SEEN [facility] Comment on above: Order Comment: Crite farhan for reflexing a culture was not met. Please call the lab at 7668 within 24 hours of collection time if culture is needed Performed By: #### 3 0965 #### [facility] [address] [place] [address], [place] Glucose Ql (U) >=500 Abnormal NEGATIVE [facility] Comment on above: Order Comment: Crite farhan for reflexing a culture was not met. Please call the lab at 7668 within 24 hours of collection time if culture is needed Performed By: #### 3 0965 #### [facility] [address] [place] [address], [facility] Hemoglobin Ql (U) LARGE Abnormal NEGATIVE [facility] Comment on above: Order Comment: Crite frahan for reflexing a culture was not met. Please call the lab at 7668 within 24 hours of collection time if culture is needed Performed By: #### 3 0965 #### [facility] [address] [place] [address], [facility] KETONE Negative Normal NEGATIVE [facility] Comment on above: Order Comment: Crite farhan for reflexing a culture was not met. Please call the lab at 7668 within 24 hours of collection time if culture is needed Performed By: #### 3 0965 #### [facility] [address] [place] [address], [facility] LEUK SUSU Negative Normal NEGATIVE [facility] Comment on above: Order Comment: Crite farhan for reflexing a culture was not met. Please call the lab at [phone] within 24 hours of collection time if culture is needed Performed By: #### 3 0965 #### [facility] [address] [facility] [place] [address], [facility] Nitrite Ql (U) Negative Normal NEGATIVE [facility] Comment on above: Order Comment: Crite farhan for reflexing a culture was not met. Please call the lab at 7668 within 24 hours of collection time if culture is needed Performed By: #### 3 0965 #### [facility] [address] [place] [id number], [facility] pH (U) 7.0 [pH] Normal 5.0-8.0 [facility] Comment on above: Order Comment: Crite farhan for reflexing a culture was not met. Please call the lab at 7668 within 24 hours of collection time if culture is needed Performed By: #### 3 0965 #### [facility] [address] [place] [address], [facility] Protein Ql (U) 30 mg/dL Abnormal NEGATIVE [facility] Comment on above: Order Comment: Crite farhan for reflexing a culture was not met. Please call the lab at 7668 within 24 hours of collection time if culture is needed Performed By: #### 3 0965 #### [facility] [address] RBC (U) [#/Vol] /uL Abnormal NONE SEEN [facility] Comment on above: Order Comment: Crite farhan for reflexing a culture was not met. Please call the lab at 7668 within 24 hours of collection time if culture is needed Performed By: #### 3 0965 #### [facility] [address] SPEC GRAV 1.023 High 1.015-1.020 [facility] Comment on above: Order Comment: Crite farhan for reflexing a culture was not met. Please call the lab at 7668 within 24 hours of collection time if culture is needed Performed By: #### 3 0965 #### [facility] [address] WBC UA NONE SEEN Normal NONE SEEN [facility] Comment on above: Order Comment: Crite farhan for reflexing a culture was not met. Please call the lab at [phone] within 24 hours of collection time if culture is needed Performed By: #### 3 0965 #### [facility] [address] *ENTERIC BACTERIAL DNA PANEL on 12-18-2020 *ENTERIC BACTERIAL DNA PANEL Clinical Report: (D) Specimen: STOOL Collected: 12/18/2020 11:45 Status: Final Last Updated: 12/19/2020 13:34 Shigella (Final) Negative Campy (Final) Negative Vibrio (Final) Negative ETEC (Final) Negative ShigaTox (Final) Negative SALM (Final) Negative Plesiom (Final) Negative Yersinia (Final) Negative Normal [facility] Comment on above: Performed By: #### 3 1598 #### [facility] [address] [facility] [place] [address], [facility] BASIC METABOLIC PANELon 04-1 Calcium [Mass/Vol] 8.5 mg/dL Low 8.6-10.3 [facility] Comment on above: Order Comment: No: D o not add to previous draw Performed By: #### 1 69, [address]61 #### [facility] [address] [place] [address], [place] Chloride [Moles/Vol] 102 mmol/L Normal 98-107 [facility] Comment on above: Order Comment: No: D o not add to previous draw Performed By: #### 1 69, 79550 #### [facility] [address] [place] [address], [place] CO2 [Moles/Vol] 29 mmol/L Normal 21-31 [facility] Comment on above: Order Comment: No: D o not add to previous draw Performed By: #### 1 69, 29327 #### [facility] [address] [place] [address], [place] Creatinine [Mass/Vol] 1.01 mg/dL Normal 0.70-1.30 [facility] Comment on above: Order Comment: No: D o not add to previous draw Performed By: #### 1 69, 03878 #### [facility] [address] [place] [address], [place] GFR/1.73 sq M.predicted among blacks MDRD (S/P/Bld) [Vol rate/Area] mL/min/{1.73_m2} Normal >60 [facility] Comment on above: Order Comment: No: D o not add to previous draw Performed By: #### 1 69, 85368 #### [facility] [address] [place] [address], [place] GFR/1.73 sq M.predicted among non-blacks MDRD (S/P/Bld) [Vol rate/Area] mL/min/{1.73_m2} Normal >60 [facility] Comment on above: Order Comment: No: D o not add to previous draw Performed By: #### 1 69, 58032 #### [facility] [address] [place] [address], [place] Glucose [Mass/Vol] 168 mg/dL High 70-100 [facility] Comment on above: Order Comment: No: D o not add to previous draw Performed By: #### 1 69, 73306 #### [facility] [address] [place] [address], [place] Potassium [Moles/Vol] 3.8 mmol/L Normal 3.5-5.1 [facility] Comment on above: Order Comment: No: D o not add to previous draw Performed By: #### 1 69, 66241 #### [facility] [address] [place] [address], [place] Sodium [Moles/Vol] 140 mmol/L Normal 136-145 [facility] Comment on above: Order Comment: No: D o not add to previous draw Performed By: #### 1 69, 76334 #### [facility] [address] [place] [address], [facility] Urea nitrogen [Mass/Vol] 19 mg/dL Normal 7-25 The [facility] Comment on above: Order Comment: No: D o not add to previous draw Performed By: #### 1 [id number], [id number] #### [facility] [address] [place] [address], [facility] CBC COMPLETE BLOOD COUNTon 0 - Erythrocyte distribution width (RBC) [Ratio] 15.0 % Normal 11.5-15.0 The [facility] Comment on above: Order Comment: No: D o not add to previous draw Performed By: #### 5 [id number] #### [facility] [address] [place] [address], [place] Hematocrit (Bld) [Volume fraction] 40.8 % Normal 39.0-50.0 The [facility] Comment on above: Order Comment: No: D o not add to previous draw Performed By: #### 5 [id number] #### [facility] [address] [address], [facility] Hemoglobin (Bld) [Mass/Vol] 12.7 g/dL Low 13.0-17.0 The [facility] Comment on above: Order Comment: No: D o not add to previous draw Performed By: #### 5 [id number] #### [facility] [address] [address], [facility] MCH (RBC) [Entitic mass] 25.4 pg Low 27.0-33.0 The [facility] Comment on above: Order Comment: No: D o not add to previous draw Performed By: #### 5 [id number] #### [facility] [address] [facility] [place] [address], [facility] MCHC (RBC) [Mass/Vol] 31.1 g/dL Low 32.0-35.0 The [facility] Comment on above: Order Comment: No: D o not add to previous draw Performed By: #### 5 [id number] #### [facility] [address] [facility] [place] [address], [facility] MCV (RBC) [Entitic vol] 81.6 fL Low 82.0-98.0 The [facility] Comment on above: Order Comment: No: D o not add to previous draw Performed By: #### 5 0608 #### [facility] [address] [place] [address], [facility] Nucleated RBC/100 WBC (Bld) [Ratio] 0 % Normal 0-0 The [facility] Comment on above: Order Comment: No: D o not add to previous draw Performed By: #### 5 0608 #### [facility] [address] [facility] [place] [address], [facility] PLAT CNT 130 10*3/uL Low 150-400 The [facility] Comment on above: Order Comment: No: D o not add to previous draw Performed By: #### 5 0608 #### [facility] [address] [place] [address], [facility] RBC (Bld) [#/Vol] 5.00 10*6/uL Normal 4.20-5.70 The [facility] Comment on above: Order Comment: No: D o not add to previous draw Performed By: #### 5 0608 #### [facility] [address] [address], [facility] WBC (Bld) [#/Vol] 4.18 10*3/uL Normal 4.00-10.60 The [facility] Comment on above: Order Comment: No: D o not add to previous draw Performed By: #### 5 0608 #### [facility] [address] MAGNESIUM BLOODon 12-18-2020 Magnesium [Mass/Vol] 1.8 mg/dL Low 1.9-2.7 The [facility] Comment on above: Order Comment: No: D o not add to previous draw Performed By: #### 1 0070, [id number] #### [facility] [address] POC GLUCOSE EDon 12-18-2020 Glucose [Mass/Vol] 174 mg/dL High 70-100 The [facility] Comment on above: Performed By: #### 0 0071 #### [facility] [address] Glucose [Mass/Vol] 134 mg/dL High 70-100 The [facility] Comment on above: Performed By: #### 0 0071 #### [facility] [address] POC SARS COV2 ANTIGEN NEGATI VEon 12-17-2020 POC SARS COV2 ANTIGEN NEG Negative Normal NEGATIVE The [facility] Comment on above: Result Comment: Nega tive [...] signs and symptoms consistent with COVID-19. [facility] [employer] COVID-19 Antigen test is a lateral flow [...] Accreditation. Performed By: #### 3 1944 #### [address] HOSPon 06-19-2017 HOSP Office Visit OPHT (BROOK) ELSA ESPINOZA ([id number]) 1955 [facility] Time Provider Kakrbsvokz78/11/17 1:00 PM JATIN RICHMOND II During your [...] about thefindings, diagnosis, and treatment options.Jatin Richmond, RONAL, ODReferring Provider: SELF [200]Allergies As of Date: 06/19/2017 Noted Allergy ReactionDILAUDID (HYDROMORPHONE (BULK)) 06/19/2017 14 - Other: See Comments Comments: Patient says he codedMARINOL (DRONABINOL) 06/19/2017 1 - Mental Status Change Comments: ConfusedDate Reviewed: 06/19/2017Reviewed by: Jatin Richmond II - Fully AssessedReason for Visit: Vision Loss [2068] Cmt: [place] Disability Exam Diabetes [34]Reason For Visit History [...] Presbyopia [H52.4]Order(s):VISUAL FIELD 30-2 OU (BOTH EYES) [[id number]] Order #: [id number]: 1 VISUAL FIELD WRIGHT OU (BOTH EYES) [[id number]] Order #: [id number]: 1 OCT OPTIC NERVE CIRRUS OU (BOTH EYES) [[id number]] Order #: [id number]: 1Prescriptions as of 06/19/2017 Sig: ATORVASTATIN 10 [...] JATIN RICHMOND II OD on 06/19/17 Normal [facility] PROGRESSon 06-19-2017 PROGRESS HNO ID: [id number] thor: Jatin Richmond IIService: (none)Author Type: OPTOMETRISTType: [...] and treatment options.Jatin Richmond, II, OD Normal [facility] Vital Signs Date Time Vital Sign Value Performing Clinician Facility 11-06-2023 10:45-0500 Body height 180.3 cm Leo Chavarria DO Work Phone: [facility] 11-06-2023 10:45-0500 Body mass index (BMI) [Ratio] 25.52 kg/m2 Leo Chavarria DO Work Phone: [facility] 11-06-2023 10:45-0500 Body weight 83.01 kg Leo Chavarria DO Work Phone: [facility] 11-06-2023 10:45-0500 Diastolic blood pressure 94 mm[Hg] Leo Chavarria DO Work Phone: [facility] 11-06-2023 10:45-0500 Heart rate 78 /min Leo Chavarria DO Work Phone: [facility] 11-06-2023 10:45-0500 Systolic blood pressure 160 mm[Hg] Leo Chavarria DO Work Phone: [facility] 11-06-2021 07:30-0500 58 1 Nikunj A Naderer Work Phone: [facility] Work Phone: Comment on above: [id number] 10-11-2021 09:12-0500 Body height 180.34 cm Nikunj A Naderer Work Phone: [facility] [address] DO Work Phone: 10-11-2021 09:12-0500 Body mass index (BMI) [Ratio] 25.38 kg/m2 Nikunj A Naderer Work Phone: [facility] [address] DO Work Phone: 10-11-2021 09:12-0500 Body surface area Derived from formula 2.03 m2 Nikunj A Naderer Work Phone: [facility] [facility] DO Work Phone: 10-11-2021 09:12-0500 Body weight 82.56 kg Nikunj A Naderer Work Phone: [facility] DO Work Phone: 10-11-2021 09:12-0500 Diastolic blood pressure 74 mm[Hg] Nikunj Mari Work Phone: [facility] [address] DO Work Phone: 10-11-2021 09:12-0500 Heart rate 65 /min Nikunj Varelar Work Phone: [facility] [facility] DO Work Phone: 10-11-2021 09:12-0500 Systolic blood pressure 134 mm[Hg] Nikunj Varelar Work Phone: [facility] DO Work Phone: Encounters Encounter Date Encounter Type Care Provider Facility Start: 12-26-2023 End: 12-26-2023 ambulatory NIKUNJ KAMALJIT Not Available Start: 12-12-2023 End: 12-12-2023 ambulatory [facility] Ambulatory Start: 11-18-2023 End: 11-18-2023 ambulatory Fred Chao Facility:[facility] Start: 11-06-2023 End: 11-06-2023 ambulatory [facility] Ambulatory Start: 11-06-2023 End: 11-06-2023 Office outpatient visit 25 minutes [facility] DO Work Phone: [facility] Comment on above: Echocardiogram abnor mal; Essential hypertension; Atherosclerosis of coronary artery bypass graft of iroquois heart without angina pectoris; History of PTCA; Mixed hyperlipidemia; S/P CABG (coronary artery bypass graft); Small bowel obstruction (CMS/[facility]); BMI 25.0-25.9,adult; Type 2 diabetes mellitus without complication, without long-term current use of insulin ([facility]) Start: 10-21-2023 End: 10-21-2023 ambulatory NISH POLLACK Not Available Start: 10-21-2023 End: 10-21-2023 Office outpatient new 30 minutes Nish Pollack SPARK PLUG TESTER-PRACTICE PHYSICIAN Work Phone: [facility] Comment on above: Seborrheic keratosis ; Lentigines; Nevus; Actinic keratosis; Common wart; Inflamed seborrheic keratosis Start: 01-08-2023 ambulatory Marta ZULUAGA Facility:[facility] Start: 01-04-2023 End: 01-05-2023 ambulatory Marta ZULUAGA Facility:CD:[id number] Start: 01-04-2023 End: 01-05-2023 Evaluation and management of inpatient SHAIKH Lincoln ROMAN Facility:[facility] Start: 11-03-2022 End: 11-04-[address] MONTY OCONNELL . Facility:[facility] Start: 08-27-2022 Rx Renewal Nikunj Mari Work Phone: [facility] DO Work Phone: Start: 08-19-2022 Evaluation and manag ement of inpatient [facility] Start: 08-18-2022 End: 08-20-2022 Evaluation and management of inpatient [facility] Start: 08-18-2022 End: 08-18-[address] NIKUNJ MARI Facility:[facility] Start: 11-20-2021 Chart Update Nikunj Mari Work Phone: [facility] [facility] DO Work Phone: Start: 11-15-2021 [facility], Provider: Leo Chavarria, Status: Pen, Time: 1:00 PM Nikunj Mari Work Phone: [facility] [facility] DO Work Phone: Start: 11-09-2021 Telephone encounter Nikunj hernandez Work Phone: [facility] [facility] DO Work Phone: Start: 11-06-2021 Chart Update Nikunj Mari Work Phone: [facility] DO Work Phone: Start: 11-06-2021 Patient encounter procedure Nikunj Mari Work Phone: [facility] Work Phone: Start: 10-25-2021 AUDIT Nikunj Varelar Work Phone: -[facility] DO Work Phone: Start: 03-20-2021 End: 03-21-2021 ambulatory PERICO ADAM Facility:[facility] Start: 03-09-2021 End: 04-03-2021 ambulatory PERICO HENNESSYJACEK Facility:[facility] Start: 02-07-2021 End: 02-08-2021 Emergency department patient visit ESE KELLER Facility:[facility] Start: 12-17-2020 End: 12-18-2020 Evaluation and management of inpatient NEHEMIAS LINCOLN Facility:[facility] Start: 09-12-2017 End: 09-13-2017 Ambulatory JATIN RICHMOND [facility] Start: 06-19-2017 End: 06-20-2017 Ambulatory [facility] Procedures Date Procedure Procedure Detail Performing Clinician Start: 12-12-2023 FOLLOW UP IN CARDIOLOGY LEO CHAVARRIA Start: 11-06-2023 Lipid panel LEO DUMONT Start: 11-04-2023 History of coronary artery bypass grafting S/P CABG (coronary artery bypass graft) Leo Chavarria DO Work Phone: Start: 11-04-2023 History of percutane ous transluminal coronary angioplasty History of PTCA Leo Chavarria DO Work Phone: Start: 10-21-2023 End: 10-21-2023 CRYOTHERAPY SKIN LESION Nish Pollack SPARK PLUG TESTER-PRACTICE PHYSICIAN Work Phone: Appendectomy Nikunj Daleyerer Work Phone: Cardiac catheterization Nikunj Fuentes Naderer Work Phone: Cholecystectomy Nikunj Ansari er Work Phone: Colonoscopy Nikunj Fuentes Naderer Work Phone: Comment on above: [id number] Mary Rodriguez kes; Coronary artery bypa ss graft Nikunj Varelar Work Phone: History of coronary artery bypass grafting S/P CABG (coronary artery bypass graft) Nikunj Mari Work Phone: Comment on above: 2002 x5; History of coronary artery bypass grafting S/P CABG (coronary artery bypass graft) Leo Chavarria DO Work Phone: History of percutane ous transluminal coronary angioplasty History of PTCA Nikunj Mari Work Phone: History of percutane ous transluminal coronary angioplasty History of PTCA Leo Chavarria DO Work Phone: Operation on colon Nikunj og Work Phone: Plan of Treatment Date Care Activity Detail Author Start: 07-31-2025 Glaucoma screening Diabetes: R etinopathy Screening [facility] Start: 10-22-2024 End: 10-22-2024 Patient encounter procedure 10/22/2024 10:25 AM EST Office Visit [facility] [address] [place] [address] Nish Pollack, SPARK PLUG TESTER-PRACTICE PHYSICIAN [address] [place] [address] [facility] Start: 10-22-2024 End: 10-22-2024 Patient encounter procedure 10/22/2024 9:10 AM EST Office Visit [address] [place] [address] Leo Chavarria, DO [address] [facility] [address] [place] [address] [facility] Start: 01-09-2024 End: 01-09-2024 Clinical Support 01/09/2024 8:30 AM EDT Clinical Support [address] [place] [address] [facility] Start: 01-08-2024 End: 01-08-2024 Patient encounter procedure 01/08/2024 7:00 AM EDT Office Visit [facility] [address] [place] [address] Nikunj Mari MD [address] [place] [address] [facility] Start: 11-06-2023 End: 11-06-2024 Lipid 1996 panel - Serum or Plasma Lipid Panel Lab Routine Mixed hyperlipidemia Expected: 11/06/2023 (Approximate), Expires: 11/06/2024 [facility] Service Area Work Phone: Comment on above: Expected: 11/06/2023 (Approximate), Expires: 11/06/2024 Start: 05-10-2023 Influenza vaccination Influenza Vacc ine (#1) [facility] Start: 04-04-2022 FUV, Provider: Leo Chavarria, Status: Pen, Time: 9:00 AM FUV, Provider: Leo Chavarria, Status: Pen, Time: 9:00 AM [facility] DO Work Phone: Start: 11-23-2021 Hemoglobin A1c measurement Diabetes: Hemoglobin A1C [facility] Start: 11-13-2021 FUV, Provider: Leo Chavarria, Status: Pen, Time: 10:20 AM FUV, Provider: Leo Chavarria, Status: Pen, Time: 10:20 AM [facility] DO Work Phone: Start: 11-06-2021 STRESS NUC, Provider : OMAR HHVI NUCLEAR 01,[id number], Status: Pen, Time: 7:30 AM STRESS NUC, Provider: OMAR HHVI NUCLEAR 01,[id number], Status: Pen, Time: 7:30 AM [facility] [facility] DO Work Phone: Start: 11-16-2018 Screening for malign ant neoplasm of colon [facility] Start: 09-09-2014 Pneumococcal Vaccine : 65+ Years (2 - PCV) Pneumococcal Vaccine: 65+ Years (2 - PCV) [facility] Start: 2006 Zoster Vaccines (1 o f 2) Zoster Vaccines (1 of 2) [facility] Start: 1978 DTaP/Tdap/Td Vaccine s (1 - Tdap) DTaP/Tdap/Td Vaccines (1 - Tdap) [facility] Start: 1975 Urine screening for protein Diabetes: Urine Protein Screening [facility] Start: 1974 Hepatitis C screening Hepatitis C Sc reening [facility] Start: 1966 Diabetic foot examination Diabetes: Foot Exam [facility] Start: 1966 Glaucoma screening Diabetes: R etinopathy Screening [facility] Start: 1962 Pneumococcal Vaccine : 65+ Years (1 - PCV) Pneumococcal Vaccine: 65+ Years (1 - PCV) [facility] Start: 1956 COVID-19 Vaccine (#1) COVID-19 Vacci ne (#1) [facility] Start: 1956 Hemoglobin A1c measurement Diabetes: Hemoglobin A1C [facility] Start: 1956 Lipid panel Lipid Panel [facility] Start: 1956 Medicare Annual Wellness Visit Medicare Annual Wellness Visit (AWV) [facility] Start: 1956 Screening for malign ant neoplasm of colon [facility] Immunizations Immunization Date Immunization Notes Care Provider Fa cility 06-05-2022 influenza virus vacc ine, unspecified formulation Nish Pollack SPARK PLUG TESTER-PRACTICE PHYSICIAN Work Phone: [facility] 06-15-2021 influenza, high dose seasonal, preservative-free Nikunj A Naderer Work Phone: [facility] 250 DO Work Phone: 07-31-2020 Influenza, injectabl e, Madin [place] Canine Kidney, preservative free, quadrivalent Nikunj A Naderer Work Phone: [facility] 250 DO Work Phone: 06-09-2020 influenza virus vacc ine, unspecified formulation Nikunj A Naderer Work Phone: [facility] 250 DO Work Phone: 07-06-2019 Influenza, injectabl e, Madin Harpster Canine Kidney, preservative free, quadrivalent Nikunj A Naderer Work Phone: [facility] 250 DO Work Phone: 06-09-2019 influenza virus vacc selvin, unspecified formulation Nikunj Fuentes Naderer Work Phone: [facility] 250 DO Work Phone: 06-09-2018 influenza virus vacc ine, unspecified formulation Nikunj Fuentes Naderer Work Phone: [facility] 250 DO Work Phone: 06-25-2017 influenza virus vacc selvin, unspecified formulation Nikunj Fuentes Naderer Work Phone: [place] [address] DO Work Phone: 06-09-2017 influenza, injectabl e, quadrivalent, preservative free Nikunj Fuentes Nadlayr Work Phone: [place] [address] DO Work Phone: 06-09-2016 influenza virus vacc selvin, unspecified formulation Nikunj Fuentes Nadlayr Work Phone: [facility] [place] DO Work Phone: 09-09-2013 pneumococcal polysaccharide vaccine, 23 valent Nikunj Varelar Work Phone: [place] [address] DO Work Phone: Payers Date Payer Category Payer Self-pay 2023 Unknown [id number] 2019 Medicare [id number] 2016 Unknown 2016 Unknown [id number] 1959 Medicare [id number] 1959 Unknown [id number] 1956 Unknown [id number] 2.16.8 [id number] 1956 Unknown [id number] 2.16.8 [id number] 1956 Unknown [id number] 2.16.8 [id number] 1956 Unknown [id number] 2.16.8 [id number] 1956 Unknown [id number] 2.16.84 [id number] 1956 Unknown [id number] 2.16.84 0.1.103854.3.579.2.593 1956 Unknown [id number] 2.16.84 0.1.129308.3.579.2.593 1956 Unknown [id number] 2.16.8 [id number] 1956 Unknown [id number] 2.16.8 [id number] 1956 Unknown [id number] 2.16.8 [id number] 1956 Unknown [id number] 2.16.8 [id number] 1956 Unknown [id number] 2.16.84 0.1.568879.3.579.2.1259 1956 Unknown [id number] 2.16.84 [id number] Private Health Insurance [id number] Unknown [id number] 2.16.8 [id number] Social History Date Type Detail Facility Start: 10-21-2023 End: 11-06-2023 No illicit drug use No illicit drug use -[place] [address] DO Work Phone: Comment on above: 1 cup of coffee miller y and 1-2 20oz pop; 1 beer every night; Start: 07-10-2023 End: 11-04-2023 Tobacco smoking status NHIS Never smoked tobacco [facility] Start: 10-21-2023 Alcohol intake Lifetime non-d barry (finding) [facility] Start: 10-21-2023 End: 11-06-2023 Tobacco use panel [facility] Start: 07-10-2023 Alcohol Comment caffeine: 1-2 cups per day [facility] Start: 1955 Sex Assigned At Not on file N [facility] Start: 11-06-2023 Alcohol intake Ex-drinker (finding) [facility] Work Phone: Start: 10-27-2023 End: 11-06-2023 Exposure to SARS-CoV-2 (event) Not sure [facility] Clinical Notes 12-19-2020 to 11-06-2023 Leo Chavarria, DO - 11/06/2023 10:30 AM ESTPatient InstructionsNatalibrooks Pollack, SPARK PLUG TESTER-PRACTICE PHYSICIAN - 10/21/2023 9:50 AM EST Note Date & Type Note Facility 11-06-2023 History of Present illness Narrative Subjective Elsa Espinoza is a 68 y.o. male Chief Complaint Annual Exam 68-year-old gentleman here for follow-up and doing well. He was recently evaluated at [place] for small bowel obstruction. He historically had [...] , Rfl: omega-3 fatty acids-fish oil (One-Per-Day [place]-3) 684-1,200 mg capsule, Take 1 capsule (1,200 [...] Atherosclerosis of coronary artery bypass graft of iroquois heart without angina pectoris 4. History of PTCA 5. Mixed hyperlipidemia 6. S/P CABG (coronary artery bypass graft) 7. Small bowel obstruction (CMS/HCC) 8. BMI 25.0-25.9,adult 9. Type 2 diabetes mellitus without complication, without long-term current use of insulin (CMS/HCC) Scribe Attestation By signing my name below, I, Anjali Tripp LPN , Scribe attest that this documentation has been prepared [...] discussion and plan. documented in this encounter [facility] Work Phone: 11-06-2023 Instructions Anjali Hicks LPN [...] instructions on exercise. documented in this encounter [facility] Work Phone: 10-21-2023 History of Present illness [...] Actinic keratosis (15) Left Preauricular Area, Left [place], Mid Frontal Scalp, Mid Lower Vermilion Lip (3), Mid Occipital Scalp (3), Mid Parietal Scalp (4), Right Inferior Buckner, Right Mid Buckner Erythematous scaly papules Patient was counseled regarding [...] limited to risks of scarring, darker or expressive art therapist pigmentary changes, recurrence, incomplete removal and infection. [...] skin lesion - Left Preauricular Area, Left [place], Mid Frontal Scalp, Mid Lower Vermilion Lip (3), Mid Occipital Scalp (3), Mid Parietal Scalp (4), Right Inferior Buckner, Right Mid Buckner 5. Common wart Left Palmar Middle 5th [...] limited to risks of scarring, darker or expressive art therapist pigmentary changes, recurrence, incomplete removal and infection. [...] year, skin check documented in this encounter [facility] 11-03-2022 Note CONSULTATION CONSULTATION DATE: 01/04/2023 REASON [...] as cholecystectomy. Had a prolonged course at [facility] by Dr. Pickard with temporary tracheostomy. In [...] He has had open heart surgery in 2001, as well as angioplasty with stenting in 2016. He does have type 2 diabetes, hypertension, [...] hospital course. CC: Nikunj Mari M.D. [facility] 08-20-2022 Note SW met with pt and h is at bedside. Pt states he is feeling well and hoping to go home today. He states he is independent has no dme or HHC needs at home. His will transport him home. Patient denies any discharge needs. [facility] 08-20-2022 Note Attestation signed by Georgi Harvey [...] DVT prophylaxis and plan for discharge [facility] General Surgery DAILY PROGRESS NOTE Subjective No [...] Ringer's, 100 mL/hr, Last Rate: 100 mL/hr (08/20/226) Imaging: XR abdomen 1 view Narrative: HISTORY: [...] DM, HTN, HLD, pancreatitis who presents to [facility] as a transfer from [facility] for evaluation of SBO. Advance to regular diet today Replete electrolytes to keep K>4 and Mg>2; Mg bolus given this morning Pain and antiemetic control Incentive spirometry Ambulate/OOB DVT ppx: Lovenox Possible discharge if tolerates regular diet well Alfonso Covarrubias MD General Surgery PGY1 Vince Patel [address] 08-19-2022 Note Attestation signed by Lazaro Pickard MD at 08/23/2022 12:10 PM Attending Physician Statement I have discussed the case, including pertinent history and exam findings with Dr. Covarrubias, certified surgical tech/first assistant and have personally seen the patient. I agree with the assessment, plan and orders as documented. [phone] pager [phone] phone [facility] General Surgery DAILY PROGRESS NOTE Subjective No [...] DM, HTN, HLD, pancreatitis who presents to [facility] as a transfer from [facility] for evaluation of SBO. Patient with abdominal pain and concern for SBO on CT. No distention noted. States that pain is improving. Continue NPO Continue NGT to LIS, possible clamping trial later today Continue IVF Pain and antiemetic control Replete electrolytes to keep K>4 and Mg>2 Incentive spirometry Ambulate/OOB DVT ppx: Lovenox Alfonso Covarrubias MD General Surgery Resident, PGY-4 I can be reached via [employer] 6a-6p [facility] 08-19-2022 Note You WILDER The [facility] 12-19-2020 Note MR#: [id number] I [facility] Pt. Name: Elsa Espinoza Admitted: 12/17/2020 Discharged: 12/18/2020 Date of : 1955 Physician: Lazaro Pickard M.D. DISCHARGE SUMMARY PRINCIPAL DIAGNOSIS: Small bowel obstruction. SECONDARY DIAGNOSES: Coronary artery disease, status post coronary artery bypass grafting in 2001, diabetes. HOSPITAL COURSE: The patient is a 65-year-old male, who presented to [place] [facility] for complaints of increased abdominal pain with nausea. CT abdomen and pelvis showed a high-grade partial versus complete bowel obstruction. He was transferred to [facility] Emergency Department for further evaluation by Dr. Pickard, who has done multiple abdominal surgeries on the patient. NG was placed at [place] and had 300 mL of bilious drainage [...] from me. Date Dict: 12/18/2020/02:27 P/Gloria Resendez, [facility] Date Trans: 12/18/2020 10:36 P/renetta [id number] cc: Nikunj Mari M.D. [address] [facility] [address] [facility] Evaluation note Diagnosis Seborrheic keratosis Lentigines Nevus Benign neoplasm of skin, site unspecified Actinic keratosis Common wart Other specified viral warts Inflamed seborrheic keratosis documented [facility] this encounter [facility] Diagnosis Echocardiogram abnormal Nonspecific (abnormal) findings on radiological and other examination of other intrathoracic organs Essential hypertension Unspecified essential hypertension Atherosclerosis of coronary artery bypass graft of iroquois heart without angina pectoris History of PTCA Postsurgical percutaneous transluminal coronary angioplasty status Mixed hyperlipidemia S/P CABG (coronary artery bypass graft) Postsurgical aortocoronary bypass status Small bowel obstruction (CMS/HCC) Unspecified intestinal obstruction BMI 25.0-25.9,adult Type 2 diabetes mellitus without complication, without long-term current use of insulin ([facility]) documented in this encounter [facility] Work Phone: Reason for referral (narrative)* Consultation (Routine) - Authorized Specialty Diagnoses / Procedures Referred By Isabel t Referred To Contact Cardiology Diagnoses Essential hypertension Procedures Follow Up In Cardiology Leo Chavarria, [address] [facility] [address], [place] [phone] Referral ID Status Reason Start Date Expiration Date V isits Requested Visits Authorized [id number] Authorized 11/06/2023 11/05/2024 1 1 * Consultation (Routine) - Authorized Specialty Diagnoses / Procedures Referred By Isabel wilks Referred To Contact Cardiology Diagnoses Atherosclerosis of coronary artery bypass graft of iroquois heart without angina pectoris Procedures Follow Up In Cardiology Leo Chavarria, [address] [place] [address] 2, [address] [address] Leo Chavarria, DO [address] [facility] [address], [address] [address] Referral ID Status Reason Start Date Expiration Date V isits Requested Visits Authorized [id number] Authorized 11/06/2023 11/05/2024 1 1 [facility] Work Phone: Summary Purpose Family History No [...] section and content) DATE CREATED AUTHOR 03/04/2018 [facility] DATE CREATED AUTHOR AUTHOR'S ORGANIZ ATION 07/09/2021 [facility] DATE CREATED AUTHOR AUTHOR'S ORGANIZ ATION 10/12/2021 [employer] DATE CREATED AUTHOR AUTHOR'S ORGANIZ ATION 11/13/2021 [facility] DATE CREATED AUTHOR AUTHOR'S ORGANIZ ATION 11/22/2021 [facility] DATE CREATED AUTHOR AUTHOR'S ORGANIZ ATION 02/09/2022 [facility] dical Specialist DATE CREATED AUTHOR AUTHOR'S ORGANIZ ATION 09/20/2022 [facility] DATE CREATED AUTHOR AUTHOR'S ORGANIZ ATION 01/11/2023 [facility] pital DATE CREATED AUTHOR AUTHOR'S ORGANIZ ATION 01/16/2023 [facility] DATE CREATED AUTHOR AUTHOR'S ORGANIZ ATION 11/22/2023 [facility] DATE CREATED AUTHOR AUTHOR'S ORGANIZ ATION 12/13/2023 [facility] DATE CREATED AUTHOR AUTHOR'S ORGANIZ ATION 12/13/2023 [facility] DATE CREATED AUTHOR AUTHOR'S ORGANIZ ATION 12/27/2023 [facility] dical Specialists EPIC (unrecognized sect ion and content) No Status Records FoundNo Status Records FoundNo Status Records FoundNo Status Records FoundNo Status Records FoundNo Status Records FoundNo Status Records FoundNo Status Records FoundNo Status Records FoundNo Status Records FoundNo Status Records FoundNo Status Records Found Care Teams (unrecognized sec tion and content) [employer] Relationship Specialty Start Date End Date Nikunj Mari MD [address] [place] [address] PCP - General Cardiology 01/18/23 [employer] Relationship Specialty Start Date End Date Nikunj [...] BE BASED ON THE PRIMARY CLINICAL RECORDS. [employer] [facility]. provides no warranty or guarantee of the accuracy or completeness of information in this document.
[2024-02-07 04:00] VITALS: BP 121/69; PULSE 81; TEMP 36.8; O2SAT 94
[2024-02-07 05:42] LABS: Hematocrit 40.9 % (42.0-54.0); Hemoglobin 13.2 g/dL (14.0-18.0); Mean Corpuscular HGB Conc 32.3 g/dL (29.9-35.2); Mean Corpuscular Hemoglobin 27.4 pg (25.9-34.0); Mean Platelet Volume 10.4 fL (9.5-13.5); Platelet Count 111 10^3/uL (150-450); Red Blood Count 4.81 10^6/uL (4.70-6.10); Red Cell Distribution Width 13.2 % (11.0-15.0); White Blood Count 6.2 10^3/uL (4.0-11.0)
[2024-02-07 06:01] LABS: Alanine Aminotransferase 39 U/L (16-63); Albumin Level 3.2 g/dL (3.4-5.0); Alkaline Phosphatase 64 U/L (46-116); Anion Gap 11.9; Aspartate Amino Transferase 33 U/L (15-37); BUN Creatinine Ratio 12.1; Bilirubin Total 0.8 mg/dL (0.2-1.0); Carbon Dioxide 28.8 mmol/L (21.0-32.0); Chloride 101 mmol/L (98-107); Estimated GFR (African America >60 (>=60); Estimated GFR (Non-African Ame >60 (>=60); Globulin 3.2 g/dL; Glucose 183 mg/dL (74-106); Potassium 4.7 mmol/L (3.5-5.1); Sodium 137 mmol/L (136-145); Total Protein 6.4 g/dL (6.4-8.2)
[2024-02-07 06:44] LABS: Segmented Neut Absolute Manual 4.03 10^3/uL (1.4-6.5)
[2024-02-07 06:45] LABS: Atypical Lymphocytes Abs Man 0.18; Band Neutrophils Absolute 0.9 10^3/uL (0.0-0.3); Eosinophils Absolute Manual 0.12 10^3/uL (0.00-0.70); Lymphocytes Absolute Manual 0.68 10^3/uL (1.20-3.80); Monocytes Absolute Manual 0.31 10^3/uL (0.30-0.80)
[2024-02-07] MEDS: DEXTROSE 5%-0.9% NACL 1,000 ML IV.SOLN 125 ML IV (06:51)
[2024-02-07 07:23] LABS: Glucometer 180 mg/dL (74-106)
[2024-02-07] MEDS: INSULIN ASPART 300 UNIT/3 ML PEN SUBQ ×2 (07:44→11:34)
[2024-02-07 07:47] VITALS: BP 151/79; PULSE 78; TEMP 36.8; O2SAT 94
--- NOTE | 2024-02-07 08:13 | PM.GSCN ---
History of Present Illness Consult details Consult date: 02/07/24 Reason for consult: abdominal pain Narrative: 68-year-old male presents with abdominal discomfort and nausea. CT scan revealed small bowel obstruction. Patient has extensive past surgical history. He had extensive abdominal surgery in [address] Umanzor for what sounds like a gallstone ileus requiring a right hemicolectomy and a prolonged hospital stay. He has also had an ostomy reversal after that. He has had SBOs that have resolved with conservative measures multiples times since 2012 and has not required any surgeries since then. He denies any current f/c/n/v. He states he is feeling much better since the NGT was placed and had 3 BMs over night. No more abdominal pain. Discussed with patient clamp trial and CLD. Informed him of staying active and sticking to a GO soft to full liquid diet for next week or so. Review of Systems ROS Status of ROS 10 or more systems reviewed and unremarkable except as noted in history and below [facility] Medical History (Updated 02/06/24 @ 22:20 by Franklin Madera MD) Small bowel obstruction ?K56.609 - Unspecified intestinal obstruction, unspecified as to partial versus complete obstruction (ICD-10) BPH (benign prostatic hyperplasia) ?N40.0 - Benign prostatic hyperplasia without lower urinary tract symptoms (ICD-10) GERD (gastroesophageal reflux disease) ?K21.9 - Gastro-esophageal reflux disease without esophagitis (ICD-10) Diabetic neuropathic arthropathy ?E11.610 - Type 2 diabetes mellitus with diabetic neuropathic arthropathy (ICD-10) Type 2 diabetes mellitus ?E11.9 - Type 2 diabetes mellitus without complications (ICD-10) Hypertension ?I10 - Essential (primary) hypertension (ICD-10) Surgical History H/O heart bypass surgery ?Z95.1 - Presence of aortocoronary bypass graft (ICD-10) History of bowel resection ?Z90.49 - Acquired absence of other specified parts of digestive tract (ICD-10) Hx of cholecystectomy ?Z90.49 - Acquired absence of other specified parts of digestive tract (ICD-10) Family History Father Family history of CHF (congestive heart failure) Family history of COPD (chronic obstructive pulmonary disease) Family history of cancer Family history of hypertension Grandfather Family history of diabetes mellitus Family history of myocardial infarction Mother Family history of hypertension Family history of stroke Social History Within the past year, how often did you have a drink containing alcohol: 4 or more times a week Within the past year, how many standard drinks containing alcohol did you have on a typical day: 1 or 2 Within the past year, how often did you have six or more drinks on one occasion: never Total score: 0 Score interpretation: Questions 2 and 3 are 0. It can be assumed that the patient's drinking is below the recommended limits. However, please confirm the accuracy of the patient's alcohol intake over the last few months. 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 Known occupational exposures/hazards: No Highest level of school completed/degree received: high school graduate Do you want help with school or training: No Are you now , , , , never or living with a partner: In a typical week, how many times do you talk on the telephone with family, friends, or neighbors: 3 or more times per week How often do you get together with friends or relatives: 3 or more times per week How often do you attend shinto or congregational services: never Do you belong to any clubs or organizations such as shinto groups unions, fraternal or athletic groups, or school groups: no Total score: 2 Score interpretation: A score of greater than or equal to 2 indicates the lowest level of social isolation. Little interest or pleasure in doing things: not at all Feeling down, depressed, or hopeless: not at all Feel stressed/tense/nervous/anxious/difficulty sleeping: not at all Due to disability, difficulty making decisions: No Do you think of yourself as: straight/heterosexual Gender Identity: male Meds Home Medications and Allergies Home Medications ?Medication ?Instructions ?Recorded ?Confirmed ?Type atorvastatin 10 mg tablet (Lipitor) 10 mg PO QPM 07/23/23 12/08/23 History ferrous sulfate 325 mg (65 mg 325 mg PO DAILY 07/23/23 12/08/23 History iron) tablet (FeroSul) gabapentin 300 mg capsule 300 mg PO Q12H 07/23/23 02/06/24 History isosorbide mononitrate 60 mg 60 mg PO DAILY 07/23/23 02/06/24 History tablet,extended release 24 hr metformin 1,000 mg tablet 1,000 mg PO BID 07/23/23 02/06/24 History metoprolol succinate 25 mg 25 mg PO DAILY 07/23/23 02/06/24 History tablet,extended release 24 hr pantoprazole 20 mg tablet,delayed 20 mg PO Q12H 07/23/23 02/06/24 History release polyethylene glycol 3350 17 gram 17 g PO DAILY 07/23/23 02/06/24 History oral powder packet (Miralax) ranolazine 500 mg tablet,extended 500 mg PO Q12H 07/23/23 02/06/24 History release,12 hr sucralfate 1 gram tablet (Carafate) 1 g PO ACHS 07/23/23 02/06/24 History tamsulosin 0.4 mg capsule 0.4 mg PO Q24H 07/23/23 02/06/24 History venlafaxine 150 mg 150 mg PO DAILY 07/23/23 02/06/24 History capsule,extended release 24 hr insulin degludec 200 unit/mL (3 40 unit subcut .QD 12/08/23 02/06/24 History mL) subcutaneous pen (Tresiba FlexTouch U-200 insulin) lisinopril 5 mg tablet 5 mg PO DAILY 12/08/23 02/06/24 History losartan 50 mg tablet 50 mg PO .QD 12/08/23 02/06/24 History naproxen 500 mg tablet 500 mg PO BID 12/08/23 02/06/24 History sitagliptin phosphate 100 mg 100 mg PO .QD 12/08/23 02/06/24 History tablet (Januvia) Allergies Allergy/AdvReac Type Severity Reaction Status Date / Time dronabinol [From Marinol] Allergy Severe Hallucinati Verified 02/06/24 19:43 ng hydromorphone [From Dilaudid] AdvReac Unknown Anaphylaxis Verified 02/06/24 19:43 Exam Constitutional Vital Signs, click to edit/add: Last Vital Signs Temp 98.2 F 02/07/24 07:47 Pulse 78 02/07/24 07:47 Resp 18 02/07/24 07:47 BP 151/79 H 02/07/24 07:47 Pulse Ox 94 L 02/07/24 07:47 O2 Del Method Room Air 02/07/24 07:47 Common normals: no apparent distress, average body habitus and oriented x3 HENMT Common normals: normocephalic Head and scalp: atraumatic Respiratory Common normals: normal respiratory effort and no retractions Cardio Common normals: no JVD, regular rate and regular rhythm GI Common normals: Normal to inspection, nondistended, normoactive bowel sounds present and non-tender Extremity Common normals: normal to inspection and full ROM Neuro Common normals: oriented x3 and moves all extremities Psych Appearance: grossly normal and well kempt Speech: normal speech Results Labs Labs: Abnormal lab results 02/06/24 02/06/24 02/07/24 Range/Units 19:44 21:14 04:55 Hgb 13.2 L (14.0-18.0) g/dL Hct 40.9 L (42.0-54.0) % Plt Count 133 L 111 L (150-450) 10^3/uL Neut % (Auto) 79.5 H (43.0-75.0) % Lymph % (Auto) 13.2 L (20.5-60.0) % Lymph # (Auto) 1.1 L (1.2-3.8) 10^3/uL Band Neutrophils % 14.0 H (0-5) % Lymphocytes % (Manual) 11.0 L (20.5-60.0) % Basophils % (Manual) 0.0 L (0.2-2.0) % Band Neutrophils # 0.9 H (0.0-0.3) 10^3/uL Lymphocytes # (Manual) 0.68 L (1.20-3.80) 10^3/uL Sodium 133 L (136-145) mmol/L Chloride 95 L (98-107) mmol/L Glucose 198 H 183 H (74-106) mg/dL Lactate 2.6 H* (0.4-2.0) mmol/L Calcium 8.0 L (8.5-10.1) mg/dL Albumin 3.2 L (3.4-5.0) g/dL Lipase 502.0 H 124.0 H (16.0-77.0) U/L Urine Ketones Trace A (NEGATIVE) mg/dL POC Glucose (74-106) mg/dL 02/07/24 Range/Units 07:21 Hgb (14.0-18.0) g/dL Hct (42.0-54.0) % Plt Count (150-450) 10^3/uL Neut % (Auto) (43.0-75.0) % Lymph % (Auto) (20.5-60.0) % Lymph # (Auto) (1.2-3.8) 10^3/uL Band Neutrophils % (0-5) % Lymphocytes % (Manual) (20.5-60.0) % Basophils % (Manual) (0.2-2.0) % Band Neutrophils # (0.0-0.3) 10^3/uL Lymphocytes # (Manual) (1.20-3.80) 10^3/uL Sodium (136-145) mmol/L Chloride (98-107) mmol/L Glucose (74-106) mg/dL Lactate (0.4-2.0) mmol/L Calcium (8.5-10.1) mg/dL Albumin (3.4-5.0) g/dL Lipase (16.0-77.0) U/L Urine Ketones (NEGATIVE) mg/dL POC Glucose 180 H (74-106) mg/dL Diabetes panel 02/06/24 02/07/24 Range/Units 19:44 04:55 Sodium 133 L 137 (136-145) mmol/L Potassium 4.0 4.7 (3.5-5.1) mmol/L Chloride 95 L 101 (98-107) mmol/L Carbon Dioxide 29.1 28.8 (21.0-32.0) mmol/L BUN 10.0 13.0 (7.0-18.0) mg/dL Creatinine 1.02 1.07 (0.70-1.30) mg/dL Glucose 198 H 183 H (74-106) mg/dL Calcium 9.2 8.0 L (8.5-10.1) mg/dL AST 31 33 (15-37) U/L ALT 32 39 (16-63) U/L Alkaline Phosphatase 69 64 (46-116) U/L Total Protein 7.4 6.4 (6.4-8.2) g/dL Albumin 4.0 3.2 L (3.4-5.0) g/dL Calcium panel 02/06/24 02/07/24 Range/Units 19:44 04:55 Calcium 9.2 8.0 L (8.5-10.1) mg/dL Albumin 4.0 3.2 L (3.4-5.0) g/dL Pituitary panel 02/06/24 02/07/24 Range/Units 19:44 04:55 Sodium 133 L 137 (136-145) mmol/L Potassium 4.0 4.7 (3.5-5.1) mmol/L Chloride 95 L 101 (98-107) mmol/L Carbon Dioxide 29.1 28.8 (21.0-32.0) mmol/L BUN 10.0 13.0 (7.0-18.0) mg/dL Creatinine 1.02 1.07 (0.70-1.30) mg/dL Glucose 198 H 183 H (74-106) mg/dL Calcium 9.2 8.0 L (8.5-10.1) mg/dL Adrenal panel 02/06/24 02/07/24 Range/Units 19:44 04:55 Sodium 133 L 137 (136-145) mmol/L Potassium 4.0 4.7 (3.5-5.1) mmol/L Chloride 95 L 101 (98-107) mmol/L Carbon Dioxide 29.1 28.8 (21.0-32.0) mmol/L BUN 10.0 13.0 (7.0-18.0) mg/dL Creatinine 1.02 1.07 (0.70-1.30) mg/dL Glucose 198 H 183 H (74-106) mg/dL Calcium 9.2 8.0 L (8.5-10.1) mg/dL Total Bilirubin 0.5 0.8 (0.2-1.0) mg/dL AST 31 33 (15-37) U/L ALT 32 39 (16-63) U/L Alkaline Phosphatase 69 64 (46-116) U/L Total Protein 7.4 6.4 (6.4-8.2) g/dL Albumin 4.0 3.2 L (3.4-5.0) g/dL All other labs normal. Imaging Abdomen CT scan report/results: image reviewed Assessment and Plan Assessment and Plan (1) Small bowel obstruction: Plan Clamp NGT, if tolerates adv to CLD Goal Mg 2.0 and K+ 4.0 Ok for d/c once tolerating adequate PO intake and electrolytes replaced Encouraged patient to stick to a FLD to gastric soft diet and start to incorporate miralax in his daily regimen. Stay active and mobile F/U with Dr. Umanzor in next couple weeks
[2024-02-07 08:47] LABS: Magnesium 1.4 mg/dL (1.8-2.4)
[2024-02-07] MEDS: LACTATED RINGER'S SOLUTION 1,000 ML 125 ML IV (09:34)
[2024-02-07 11:10] LABS: Glucometer 177 mg/dL (74-106)
[2024-02-07] MEDS: VENLAFAXINE HCL ER 150 MG CAPSULE PO (11:30)
[2024-02-07] MEDS: LOSARTAN POTASSIUM 50 MG TABLET 100 MG PO (11:31)
[2024-02-07] MEDS: METOPROLOL SUCCINATE 25 MG TAB.ER.24H PO (11:31)
[2024-02-07] MEDS: RANOLAZINE 500 MG TAB.ER.12H PO (11:31)
[2024-02-07] MEDS: TAMSULOSIN HCL 0.4 MG CAPSULE 0.400000000000000022 MG PO (11:32)
[2024-02-07] MEDS: GABAPENTIN 300 MG CAPSULE PO (11:32)
[2024-02-07] MEDS: OMEPRAZOLE 40 MG CAPSULE.DR PO (11:32)
--- NOTE | 2024-02-07 11:45 | P.HP_ITS ---
<Statement entered by Shaikh Peter MD - 02/07/24 13:06> This documentation has been reviewed and approved. Seen and examined. Case discussed with patient's nurse, case management and hospitalist nurse practitioner. Reviewed clinical documentation, treatment plan. Exam: Patient laying in bed, comfortable. NG tube in place and currently clamped Bilaterally. Normal respiratory rate. Nontender abdomen. Nondistended. Prior surgical scar. Assessment and plan: Small bowel obstruction Type 2 diabetes Coronary artery disease Hypertension Patient was admitted overnight for a small bowel obstruction. He was anticipated to require inpatient and hospital stay for minimum of 2 midnights for small bowel obstruction because of his prior history of extensive intra-abdo samir surgeries and possible surgical intervention if not improved conservatively. However he had 3 large bowel movements overnight and recovered quicker than expected. He was seen by general surgery earlier today. His NGT is clamped and he was started on clear liquid diet. If he is able to tolerate clear liquid diet without significant nausea, abdominal pain, we will discharge him home. 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 He notes onset of abdominal pain across the bilateral lower quadrants yesterday morning that became more diffuse in nature throughout the day. He denied nausea and vomiting on arrival to the ED but did experience 3 episodes of vomiting after arrival in the ER. His last bowel movement was a small BM early yesterday morning. The patient follows with Dr. Umanzor at [facility] as he performed his initial abdominal surgeries 9 years ago. The patient denies any chest pain, shortness of breath, dizziness, or black or bloody stool. Workup in the ED revealed hyperglycemia (198) and bandemia (14%) without leukocytosis. A lactic acid was elevated (2.6), and so was a lipase (502). A CT of the abdomen and pelvis revealed a right lower quadrant small bowel obstruction and no evidence of pancreatitis of the remaining pancreatic head. An NG tube was placed in the ED to [facility] and surgery was consulted. The patient was admitted as an inpatient last night to the hospitalist service with Dr. Ramirez, general surgeon, on consult. At the time of my exam the patient is sitting up in bed. He has already been seen by surgery this morning. The patient had 3 small bowel movements early this morning and his pain has resolved. Surgery has indicated that the NG tube can be clamped and if the patient tolerates this well he can begin to advance his diet. He is improved much quicker than the anticipated and if we are successful in advancing his diet today, he will likely be discharged later this afternoon. Opioid HPI Opioid Management Most Recent Opioid Data: Last Pain Scale 6 02/06/24 20:02 Last Pain Assessment 02/07/24 12:19 Last ORT Total Score 0 02/06/24 23:10 Last ORT Risk Category Low Risk 02/06/24 23:10 Review of Systems ROS Status of ROS 10 or more systems reviewed and unremark able except as noted in history and below [facility] Medical History (Updated 02/07/24 @ 12:09 by Kailey Figueroa NP) Depression ?F32.A - Depression, unspecified (ICD-10) CAD (coronary artery disease) ?I25.10 - Atherosclerotic heart disease of [place] coronary artery without angina pectoris (ICD-10) BPH (benign prostatic hyperplasia) ?N40.0 - Benign prostatic hyperplasia without lower urinary tract symptoms (ICD-10) GERD (gastroesophageal reflux disease) ?K21.9 - Gastro-esophageal reflux disease without esophagitis (ICD-10) Diabetic neuropathic arthropathy ?E11.610 - Type 2 diabetes mellitus with diabetic neuropathic arthropathy (ICD-10) Type 2 diabetes mellitus ?E11.9 - Type 2 diabetes mellitus without complications (ICD-10) Hypertension ?I10 - Essential (primary) hypertension (ICD-10) Surgical History Hx of cholecystectomy ?Z90.49 - Acquired absence of other specified parts of digestive tract (ICD- 10) H/O heart bypass surgery ?Z95.1 - Presence of aortocoronary bypass graft (ICD-10) History of bowel resection ?Z90.49 - Acquired absence of other specified parts of digestive tract (ICD- 10) Family History Father Family history of CHF (congestive heart failure) Family history of COPD (chronic obstructive pulmonary disease) Family history of cancer Family history of hypertension Grandfather Family history of diabetes mellitus Family history of myocardial infarction Mother Family history of hypertension Family history of stroke Social History Within the past year, how often did you have a drink containing alcohol: 4 or more times a week Within the past year, how many standard drinks containing alcohol did you have on a typical day: 1 or 2 Within the past year, how often did you have six or more drinks on one occasion: never Total score: 0 Score interpretation: Questions 2 and 3 are 0. It can be assumed that the patient's drinking is below the recommended limits. However, please confirm the accuracy of the patient's alcohol intake over the last few months. 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 Known occupational exposures/hazards: No Highest level of school completed/degree received: high school graduate Do you want help with school or training: No Are you now , , , , never or living with a partner: In a typical week, how many times do you talk on the telephone with family, friends, or neighbors: 3 or more times per week How often do you get together with friends or relatives: 3 or more times per week How often do you attend methodist or taoism services: never Do you belong to any clubs or organizations such as methodist groups unions, fraternal or athletic groups, or school groups: no Total score: 2 Score interpretation: A score of greater than or equal to 2 indicates the lowest level of social isolation. Little interest or pleasure in doing things: not at all Feeling down, depressed, or hopeless: not at all Feel stressed/tense/nervous/anxious/difficulty sleeping: not at all Due to disability, difficulty making decisions: No Do you think of yourself as: straight/heterosexual Gender Identity: male Meds Home Medications and Allergies Home Medications ?Medication ?Instructions ?Recorded ?Confirmed ?Type atorvastatin 10 mg tablet (Lipitor) 10 mg PO QPM 07/23/23 02/07/24 History gabapentin 300 mg capsule 300 mg PO Q12H 07/23/23 02/06/24 History isosorbide mononitrate 60 mg 60 mg PO DAILY 07/23/23 02/06/24 History tablet,extended release 24 hr metformin 1,000 mg tablet 1,000 mg PO BID 07/23/23 02/06/24 History metoprolol succinate 25 mg 25 mg PO DAILY 07/23/23 02/06/24 History tablet,extended release 24 hr polyethylene glycol 3350 17 gram 17 g PO DAILY 07/23/23 02/06/24 History oral powder packet (Miralax) ranolazine 500 mg tablet,extended 500 mg PO Q12H 07/23/23 02/06/24 History release,12 hr sucralfate 1 gram tablet (Carafate) 1 g PO ACHS 07/23/23 02/06/24 History tamsulosin 0.4 mg capsule 0.4 mg PO Q24H 07/23/23 02/06/24 History venlafaxine 150 mg 150 mg PO DAILY 07/23/23 02/06/24 History capsule,extended release 24 hr insulin degludec 200 unit/mL (3 40 unit subcut .QD 12/08/23 02/06/24 History mL) subcutaneous pen (Tresiba FlexTouch U-200 insulin) sitagliptin phosphate 100 mg 100 mg PO .QD 12/08/23 02/06/24 History tablet (Januvia) esomeprazole magnesium 40 mg 40 mg PO DAILY 02/07/24 02/07/24 History capsule,delayed release losartan 100 mg tablet 100 mg PO DAILY 02/07/24 02/07/24 History Allergies Allergy/AdvReac Type Severity Reaction Status Date / Time dronabinol [From Marinol] Allergy Severe Hallucinati Verified 02/06/24 19:43 ng hydromorphone [From Dilaudid] AdvReac Unknown Anaphylaxis Verified 02/06/24 19:43 Exam Constitutional Vital Signs, click to edit/add: Last Vital Signs Temp 98.2 F 02/07/24 07:47 Pulse 78 02/07/24 07:47 Resp 18 02/07/24 07:47 BP 151/79 H 02/07/24 07:47 Pulse Ox 94 L 02/07/24 07:47 O2 Del Method Room Air 02/07/24 07:47 Common normals: no apparent distress, oriented x3, alert and well nourished General appearance: cooperative Orientation/consciousness: Yes awake HENME Common normals: normocephalic, head/scalp atraumatic, hearing grossly normal bilaterally, external nose normal and moist oral mucous membranes Eye Common normals: PERRL, EOMs intact bilaterally, conjunctivae normal and no scleral icterus Alignment: alignment normal Eyelid: eyelids normal Neck & C-Spine Common normals: full ROM, supple and no JVD Chest Common normals: inspection of chest normal Chest: symmetrical chest wall rise Respiratory Common normals: normal respiratory effort, no retractions, no use of accessory muscles and clear to auscultation bilaterally Effort & inspection: able to speak in complete sentences Cardio Common normals: no JVD, regular rate, regular rhythm, S1 normal heart sound, S2 normal heart sound, no gallops, no clicks, no rub and peripheral pulses 2+ throughout Heart sounds: murmur (Aortic 3/6) GI Common normals: Normal to inspection, nondistended, normoactive bowel sounds present, soft to palpation, non-tender, no hepatosplenomegaly, no masses and no bruits Palpation: other (Tenderness completely resolved) Bladder/kidney exam: bladder normal to palpation Back & Pelvis Common normals: thoracic and lumbar spine normal to inspection Extremity Common normals: normal capillary refill and no pedal edema General: normal exam except as noted; no clubbing and no cyanosis Neuro [place] Coma Scale: GCS not evaluated Common normals: CN's II-XII intact bilaterally, moves all extremities, no focal motor deficits and no sensory deficits noted Speech: speech normal Motor exam: strength 5/5 throughout Psych Common normals: mental status grossly normal, thought process normal, affect normal and activity/motor behavior normal Results Labs Labs: Short CBC 02/06/24 02/07/24 Range/Units 19:44 04:55 WBC 8.0 6.2 (4.0-11.0) 10^3/uL Hgb 14.4 13.2 L (14.0-18.0) g/dL Hct 44.3 40.9 L (42.0-54.0) % Plt Count 133 L 111 L (150-450) 10^3/uL BMP 02/06/24 02/07/24 19:44 04:55 Sodium 133 L 137 Potassium 4.0 4.7 Chloride 95 L 101 Carbon Dioxide 29.1 28.8 BUN 10.0 13.0 Creatinine 1.02 1.07 Glucose 198 H 183 H Calcium 9.2 8.0 L Liver Function 02/06/24 02/07/24 Range/Units 19:44 04:55 Total Bilirubin 0.5 0.8 (0.2-1.0) mg/dL AST 31 33 (15-37) U/L ALT 32 39 (16-63) U/L Alkaline Phosphatase 69 64 (46-116) U/L Albumin 4.0 3.2 L (3.4-5.0) g/dL Urine 02/06/24 Range/Units 21:14 Urine Color Yellow (YELLOW) Urine Clarity Clear (CLEAR) Urine pH 5.5 (5.0-9.0) Ur Specific [place] 1.020 (1.005-1.025) Urine Protein Trace (NEG/TRACE) mg/dL Urine Glucose (UA) Negative (NEGATIVE) mg/dL Pulse Oximetry Attestation: I have reviewed the pertinent pulse oximetry results. Assessment and Plan Assessment and Plan (1) Small bowel obstruction: Assessment and Plan: Acute * Adm inpatient * We originally anticipated greater than a 2 midnight stay for medically necessary hospital care as the pt is NPO w/ an NGT to LIS for a SBO, specialty surgical care w/ possible intervention, IVF administration and close monitoring of the pt's symptoms and output * The pt is improving much quicker than expected and discharge is possible later today * NPO - NGT to LIS (placed in ED) * LR at 125/hr for hydration until pt is able to tolerate adequate PO fluid intake * Pt w/ pos BS and small BMs this morning x 3 * C/S General surgery - we appreciate Dr Ramirez's assistance with this pt's care * OK to clamp NGT now * Trial clear liquids and if tolerating, advance as tolerated to Full, soft at most. * If pt able to tolerate advancing his diet he will likely be discharged later today * Follow up outpatient with Dr Umanzor * CBC, CMP daily while admitted (2) Depression: Assessment and Plan: Chronic * Continue home Venlafaxine (3) CAD (coronary artery disease): Assessment and Plan: Chronic * Continue home BB, ARB, ranolazine (4) BPH (benign prostatic hyperplasia): Assessment and Plan: Chronic * Continue home tamsulosin (5) GERD (gastroesophageal reflux disease): Assessment and Plan: Chronic * Continue home PPI and carafate (6) Diabetic neuropathic arthropathy: Assessment and Plan: Chronic * Continue home gabapentin (7) Type 2 diabetes mellitus: Assessment and Plan: Chronic * Hold home Tresiba and Januvia for now * ACHS glucometer checks * Med SSI for glucose correction (8) Hypertension: Assessment and Plan: Chronic * Continue home Imdur, Losartan, Toprol
--- NOTE | 2024-02-07 12:11 | CM.NOTE ---
Rounds made with Dr. Green, pt had BM last night. Pt denies any abdominal pain or nausea. NG clamped. Will advance pt's diet and possible discharge this afternoon.
[2024-02-07 12:19] VITALS: BP 146/80; PULSE 71; TEMP 36.4; O2SAT 96
--- NOTE | 2024-02-07 13:12 | SWNOTE1 ---
Important Message from [employer] reviewed and discussed with patient. Pt. verbalized understanding and signed the form. Original given to patient and copy placed in patient?s chart. Pt's in room as well. Pt voices no discharge needs at this time. Pt voiced he is feeling better and has been tolerating diet. Pt is hoping for discharge home later today.
--- NOTE | 2024-02-10 15:31 | CM.DCFOLLOWU ---
Person spoke with: Pt's How are you feeling? He is doing better How is your pain? No pain Did you understand your discharge instructions? Yes Do you have any questions about your discharge instructions? No Were you given any prescriptions at discharge? Yes but won't pick up attendant because they already have Were you able to get your prescriptions filled? No Do you understand how to take your medications as ordered? Yes Do you have any questions about your follow up appointment and do you plan to keep your follow up appointment? We have appt scheduled with Dr. Umanzor Is there anything else that you would like to discuss? No Questions/Comments/Concerns/Other:
== END 2024-02-07 14:17 | disposition home or self-care (01) | DRG 390 ==
LOC: ER 22:20 → MS 23:09
PROVIDERS: Nurse Practitioner; Physician Assistant; Registered Nurse; Admitting Provider Family Medicine; Emergency Provider Emergency Medicine; PCP Family Medicine; Visit Provider Family Medicine
DX: K56.609 Unspecified intestinal obstruction, unspecified as to partial versus complete obstruction (principal); E11.610 Type 2 diabetes mellitus with diabetic neuropathic arthropathy; I25.10 Atherosclerotic heart disease of native coronary artery without angina pectoris; I10 Essential (primary) hypertension; F32.A Depression, unspecified; N40.0 Benign prostatic hyperplasia without lower urinary tract symptoms; K21.9 Gastro-esophageal reflux disease without esophagitis; Z90.49 Acquired absence of other specified parts of digestive tract; Z79.899 Other long term (current) drug therapy; Z95.1 Presence of aortocoronary bypass graft; Z79.84 Long term (current) use of oral hypoglycemic drugs; Z79.4 Long term (current) use of insulin
CPT/HCPCS: 36415; 74177; 80053; 81003; 82948; 83605; 83690; 83735; 85007; 85025; 85027; 96374; 96375; 96376; 99285; Q9967

== ENCOUNTER 2024-08-27 20:13 | Emergency (ER) | payer MEDICARE, OTHER, SELFPAY ==
[2024-08-27] VITALS (34 sets, daily range): BP systolic 140–178; BP diastolic 72–105; PULSE 68–87; TEMP 36.5; O2SAT 98–99; BMI 24.4
--- OUTSIDE RECORDS SUMMARY | 2024-08-27 20:17 | XMS_ITS | CCD ---
Author Organization [facility] Care Team Providers Care Supervisor Rice Milling Name Role Phone COOPERRIDER II, JATIN H Unavailable Unavailabl e COOPERRIDER II, JATIN H Unavailable Unavailabl e Nikunj Mari Unavailable Unavailable Unavailable PERICO ADAM Admitting Unavailable PERICO ADAM Attending Unavailable NIKUNJ MARI Referring Unavailable KAMALJIT, NIKUNJ Primary Care Unavailable PERICO ADAM Admitting Unavailable PERICO ADAM Attending Unavailable NIKUNJ MARI Referring Unavailable KAMALJIT, NIKUNJ Primary Care Unavailable ESE KELLER Admitting Unavailable NADEREBailey, NIKUNJ Primary Care Unavailable SELF, REFERRED Referring Unavailable ASHLEE ARMIJO Attending Unavailable NEHEMIAS LINCOLN Admitting Unavailable NADEREBailey, NIKUNJ Primary Care Unavailable VINCENT DIAZ Referring Unavailable PICKARDLAZARO Attending Unavailable PICKARD, LAZARO Attending Unavailable PICKARDLAZARO Admitting Unavailable PICKARD, LAZARO Referring Unavailable HOY ., DR MILLAN Consulting Unavailable NADEREBailey, DR NIKUNJ Fuentes Attending Unavailable NADEREBailey, DR NIKUNJ Fuentes Primary Care Unavailable NADERER, DR NIKUNJ Fuentes Admitting Unavailable NADERER, DR NIKUNJ Fuentes Consulting Unavailable GRECHNY ., JUAN MIGUEL MOCK Consulting Unavailabl e STRAWSERRYLAN Consulting Unavailable MARY RODRIGUEZ Consulting Unavailable DARAMOLGRISEL Fuentes Consulting Unavailable MARTA COLEMAN Consulting Unavailable JAMEY .NATO Consulting Unavailable SHAIKH ROMAN H Attending Unavailable SHAIKH ROMAN H Admitting Unavailable AMY, DR SHAUNA Avalos Consulting Unavailable NADEREBailey, DR NIKUNJ Fuentes Primary Care Unavailable MARKER ., DR NAIDU Consulting Unavailable NILL ., DR LOZANO Consulting Unavailable SHAIKH ROMAN H Consulting Unavailable CRISTAL MI Consulting Unavailable CHANO ALFARO Consulting Unavailab MONTY Canchola Consulting Unavailable MELISSA ., ROBBY Consulting Unavailable CLARIBEL, LYLY Consulting Unavailable SERGIO, CONSTANTINO Consulting Unavailable JESSE VO Consulting Unavailable KAMALJIT, DR NIKUNJ Fuentes Primary Care Unavailable TAIWO, DR DESTINY Doyle Attending Unavailabl e REINECK, DR DESTINY Doyle Consulting Unavailabl e TAIWO, DR DESTINY Doyle Admitting Unavailabl e MARY HOGAN Consulting Unavailable MARGARETH, Marta Avalos Attending Unavailable Nikunj Mari MD Primary Care Provider Kamaljit GARSIA, Nikunj Wilcox Primary Care Provider Fred Chao Attending Unavailable Fred Chao Admitting Unavailable Nikunj Mari Primary Care Unavailable NISH POLLACK Attending Unavailable KAMALJIT, NIKUNJ Attending Unavailable LEO CHAVARRIA Attending Unavailable NIKUNJ MARI Primary Care Unavailabl e DEON, LEO Linder Referring Unavailable KAMALJIT, NIKUNJ WILCOX Primary Care Unavailabl e DEON, LEO Linder Referring Unavailable NADNIKUNJ ZAMAN Primary Care Unavailabl Nikunj Harrison MD Primary Care Provider Nikunj Mari MD Unavailable Allergies Allergy Classification Reported Allergen(s) Allergy Type Date of Onset Reaction(s) Facility (2 sources) HYDROmorphone; Translations: [HYDROMORPHONE (BULK)] Drug Allergy 06-19-20 17 [facility] Repository (9 sources) tetrahydrocannabi nol; Translations: [DRONABINOL] Drug Allergy 08-27-20 14 Hallucinations , Unknown [facility] Repository (6 sources) dronabinol; Translations: [Marinol] Drug Allergy [facility] Work Phone: (11 sources) HYDROmorphone; Translations: [Dilaudid] Drug Allergy 06-19-20 17 Anaphylaxis, Unknown [facility] DO Work Phone: (2 sources) dronabinol Drug Allergy 10-04-19 14 [facility] Repository (3 sources) HYDROmorphone; Translations: [HYDROMORPHONE] Drug Allergy 12-21-19 16 [facility] Repository (1 source) HYDROmorphone Drug Allergy 12-28-19 16 [facility] Repository (2 sources) Angiotensin-conve rting enzyme inhibitor agent; Translations: [JACKI INHIBITORS] Drug Intolerance 11-06-19 24 [facility] Work Phone: (1 source) HYDROmorphone Drug Allergy 11-18-19 [facility] Repository Medications Current Medications Medication Drug [...] 0 Active atorvastatin 10 mg oral tablet (11 sources) HMG-CoA Reductase Inhibitor Start: 08-08-2023 atorvastatin [...] once miller y Vitamin D3 50 MCG (1999 UT) Oral Tablet Take 1 tablet daily Quantity: 0 Refills: 0 Ordered: 11-Oct-2021 DO Active docosahexaenoic acid 120 mg / eicosapentaenoic acid 180 mg oral capsule (4 sources) take 1 capsule by mouth twice daily omega-3 (Fish Oil) 1000 MG capsule omega-3 acid ethyl esters 1 gram capsule TAKE 1 CAPSULE BY MOUTH TWICE A DAY Active esomeprazole 40 mg delayed release oral capsule (2 sources) Proton Pump Inhibitor Start: take 1 capsule by mouth before mealtime esomeprazole (NexIUM) [address] capsule Indications: Iron deficiency anemia due to chronic blood loss , Gastroesophageal reflux disease without esophagitis Take 1 capsule (40 mg) by mouth in the morning. Take before meals. Do not open capsule.. 90 capsule 3 12/26/2023 Active ferrous sulfate 325 mg oral tablet (11 sources) Start: take 1 tablet by mouth once daily ferrous sulfate (FeroSul) 325 (65 Fe) MG tablet Indications: Iron deficiency anemia due to chronic blood loss Take 1 tablet (325 mg) by mouth Daily 90 tablet 3 12/26/2023 Active End: 10-21-2023 take 1 tablet by mouth once daily ferrous sulfate, 325 mg ferrous sulfate, tablet Take 1 tablet by mouth once daily. 0 Active folic acid 0.4 mg oral tablet (7 sources) take 1 tablet by mouth once daily folic acid (Folvite) 400 mcg tablet Take 1 tablet (0.4 mg) by mouth once daily. 0 Active gabapentin 300 mg oral capsule (13 sources) Anti-epileptic Agent Start: 08-21-2024 gabapentin (Neurontin) 300 MG capsule Indications: Diabetic polyneuropathy associated with type 2 diabetes mellitus (CMS/HCC) TAKE 1 CAPSULE TWICE A DAY 180 capsule 3 08/21/2024 Active Start: 07-06-2024 End: 08-21-2024 take 1 capsule by mouth in the morning gabapentin (Neurontin) 300 MG capsule Indications: Diabetic polyneuropathy associated with type 2 diabetes mellitus (CMS/HCC) Take 1 capsule (300 mg) by mouth in the morning and 1 capsule (300 mg) before bedtime. 180 capsule 2 07/06/2024 08/21/2024 Discontinued insulin degludec 100 unt/ml injectable solution (7 sources) Insulin Analog insulin degludec (Tresiba U-100 Insulin) 100 unit/mL injection Inject under the skin. As directed. 0 Active Tresiba 100 UNIT /ML Subcutaneous Solution as directed Quantity: 0 Refills: 0 Ordered: 11-Oct-2021 DO Active 3 ml insulin glargine 100 unt/ml pen injector (2 sources) Insulin Analog Start: 03-24-2024 insulin glargi ne (Basaglar KwikPen) 100 UNIT/ML pen Indications: Type 2 diabetes mellitus with hyperglycemia, with long-term current use of insulin (CMS/HCC) Inject 40 Units under the skin at bedtime 15 each 3 03/24/2024 Active 24 hr isosorbide mononitrate 60 mg extended release oral tablet (10 sources) Nitrate Vasodilator Start: 06-03-2024 End: 06-03-2025 take 1 tablet by mouth once daily isosorbide mononitrate ER (Imdur) 60 MG 24 hr tablet Indications: Coronary artery disease involving galena coronary artery of galena heart, unspecified whether angina present (CMS/HCC) Take 1 tablet (60 mg) by mouth Daily 90 tablet 3 06/03/2024 06/03/2025 Active Start: 11-09-2021 take 1 tablet by edil th once daily isosorbide mononitrate ER (Imdur) 60 mg 24 hr tablet Indications: Atherosclerosis of coronary artery bypass graft(s) without angina pectoris TAKE 1 TABLET BY MOUTH EVERY DAY 90 tablet 3 11/05/2023 Active Start: 10-11-2021 take 1 tablet by [...] 90 tablet 3 10/07/2023 Active losartan potassium 100 mg oral tablet (6 sources) Angiotensin 2 Receptor Michael Start: 12-26-2023 take 1 tablet by mouth once daily losartan (Cozaar) 100 MG tablet Indications: Benign essential hypertension (CMS/HCC) Take 1 tablet (100 mg) by mouth Daily 30 tablet 3 12/26/2023 Active Start: 11-06-2023 take 1 tablet by edil th once daily losartan (Cozaar) 50 mg tablet [...] Active metFORMIN hydrochloride 1000 mg oral tablet (11 sources) Biguanide Start: 08-08-2023 metFORMIN (Glucophage) 1000 [...] succinate 25 mg extended release oral tablet (9 sources) beta-Adrenergic Michael Start: 06-29-2024 metopr olol succinate XL (Toprol-XL) 25 MG 24 hr tablet Indications: Benign essential hypertension (CMS/HCC) TAKE 1 TABLET DAILY 90 tablet 3 06/29/2024 Active take 1 tablet by mouth once miller y Toprol XL 25 mg 24 hr tablet Take 1 tablet (25 mg) by mouth once daily. 0 Active multivit-min/ferrous fumarate (MULTI VITAMIN ORAL) (1 source) take 1 tablet by mouth once daily multivit-min/ferrous fumarate (MULTI VITAMIN ORAL) Take 1 tablet by mouth once daily. 0 Active nitroglycerin 0.4 mg sublingual tablet (7 sources) Nitrate Vasodilator Start: 2021 nitroglycerin (Nitrostat) 0.[address] 1 tablet (0.4 mg) under the tongue every 5 minutes if needed for chest pain (Report to the ER or call 911 after third dose.). 0 10/11/2021 Active omega-3 fatty acids-fish oil (One-Per-Day [place]-3) 684-1,200 mg capsule (1 source) omega-3 fatty ac ids-fish oil (One-Per-Day [place]-3) 684-1,200 mg capsule Take 1 capsule (1,200 [...] 2 tablets by mouth daily 0 Active polyethylene glycol 3350 69195 mg powder for oral solution (2 sources) Osmotic Laxative polyethylene gl ycol, PEG, 3350 (Glycolax) 17 GM/SCOOP powder Take 17 g by mouth Daily Active 12 hr ranolazine 500 mg extended release oral tablet (11 sources) Anti-anginal Start: End: 5 take 1 tablet by mouth every twelve hours in the morning ranolazine (Ranexa) 500 MG 12 hr tablet Indications: Coronary artery disease involving galena coronary artery of galena heart, unspecified whether angina present (CMS/HCC) Take 1 tablet (500 mg) by mouth in the morning and 1 tablet (500 mg) before bedtime. 180 tablet 3 06/03/2024 06/03/2025 Active take 1 tablet by mouth every twe lve hours Ranexa 500 mg 12 hr tablet Take 1 tablet (500 mg) by mouth every 12 hours. 0 Active SITagliptin 100 mg oral tablet (11 sources) Dipeptidyl Peptidase 4 Inhibitor Start: 06-29-2024 SITagliptin (Januvia ) 100 MG tablet Indications: Type 2 diabetes mellitus with hyperglycemia, without long-term current use of insulin (CMS/HCC) TAKE 1 TABLET DAILY 90 tablet 3 06/29/2024 Active take 1 tablet by mouth once miller y Januvia 100 mg tablet Take 1 tablet (100 mg) by mouth once daily. 0 Active sucralfate 1000 mg oral tablet (11 sources) Aluminum Complex take 1 tablet by mouth four times daily sucralfate (Carafate) 1 g tablet sucralfate 1 gram tablet TAKE 1 TABLET BY MOUTH FOUR TIMES A DAY Active take 1 tablet by edil th every twelve hours sucralfate (Carafate) 1 gram tablet Take 1 tablet (1 g) by mouth every 12 hours. 0 Active take 1 tablet by mouth once miller y Sucralfate 1 GM Oral Tablet TAKE 1 TABLET EVERY 12 HOURS DAILY. Quantity: 0 Refills: 0 Ordered: 11-Oct-2021 DO Active tamsulosin hydrochloride 0.4 mg oral capsule (13 sources) alpha-Adrenergic Michael Start: 08-21-2024 tamsu losin (Flomax) 0.4 MG 24 hr capsule Indications: BPH without urinary obstruction TAKE 1 CAPSULE DAILY 90 capsule 3 08/21/2024 Active Start: 08-16-2023 End: 08-21-2024 take 1 capsule by mouth once daily tamsulosin (Flomax) 0.4 MG 24 hr capsule Indications: BPH without urinary obstruction Take 1 capsule (0.4 mg) by mouth Daily 90 capsule 3 07/06/2024 08/21/2024 Discontinued 24 hr venlafaxine 150 mg extended release oral capsule (17 sources) Serotonin and Norepinephrine Reuptake Inhibitor Start: 08-21-2024 venlafaxine XR (Effexor XR) 150 MG 24 hr capsule Indications: Mild recurrent major depression (HCC) (CMS/HCC) TAKE 1 CAPSULE DAILY 90 capsule 3 08/21/2024 Active Start: 09-10-2023 venlafaxine XR (Effexor XR) 75 MG 24 hr capsule Indications: Mild recurrent major depression (HCC) (CMS/HCC) TAKE 1 CAPSULE DAILY 90 capsule 3 09/10/2023 Active Start: 08-16-2023 End: 08-21-2024 take 1 capsule by mouth once daily venlafaxine XR (Effexor XR) 150 MG 24 hr capsule Indications: Mild recurrent major depression (HCC) (CMS/HCC) Take 1 capsule (150 mg) by mouth Daily 90 capsule 3 07/06/2024 08/21/2024 Discontinued vit A/vit C/vit E/zinc/coppe r (PRESERVISION AREDS [...] 0 Refills: 0 Ordered: 11-Oct-2021 DO Active Cerritos 3 CAPS (6 sources) Cerritos 3 CAPS Maxwell e 1 capsule twice [...] Chronic Coronary atherosclerosis and other heart disease (4 sources) 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; Translations: [Old myocardial infarction] Onset: 3 12-26-2023 Chronic Deficiency and other anemia (1 source) Other pancytopenia; Translations: [OTHER PANCYTOPENIA] Onset: 3 Chronic Deficiency and other anemia (2 sources) Iron deficiency anemia due to blood loss; Translations: [Iron deficiency anemia secondary to blood loss (chronic)] Onset: 4 12-26-2023 Chronic Deficiency and other anemia (7 sources) Anemia; Translations: [Anemia, unspecified] Onset: 4 11-04-2023 Episodic Deficiency and other anemia (1 source) Iron deficiency anemia, unspecified; Translations: [IRON DEFICIENCY ANEMIA UNSPECIFIED] Onset: 3 Episodic Diabetes mellitus with complications (7 sources) Type 2 diabetes mellitus with diabetic neuropathy, unspecified; Translations: [Polyneuropathy due to type 2 diabetes mellitus] Onset: 3 07-06-2024 Chronic Diabetes mellitus without complication (11 sources) Diabetes mellitus; Translations: [Diabetes mellitus without mention of complication, type II or unspecified type, not stated as uncontrolled] Onset: 3 11-06-2023 Chronic Disorders of lipid metabolism (14 sources) Hyperlipidemia; Translations: [Other and unspecified hyperlipidemia] Onset: 3 11-06-2023 Chronic Esophageal disorders (10 sources) Gastroesophageal reflux disease; Translations: [Esophageal reflux] Onset: 3 11-04-2023 Chronic Essential hypertension (15 sources) Essential hypertension; Translations: [Unspecified essential hypertension] Onset: 3 08-21-2023 Chronic Gastrointestinal hemorrhage (7 sources) Gastrointestinal hemorrhage; Translations: [Hemorrhage of gastrointestinal tract, unspecified] Onset: 4 11-04-2023 Episodic Heart valve disorders (15 sources) Aortic valve stenosis; Translations: [Aortic valve disorders] Onset: 4 11-04-2023 Chronic Hyperplasia of prostate (6 sources) Benign prostatic hypertrophy without outflow obstruction; Translations: [Benign prostatic hyperplasia without lower urinary tract symptoms] Onset: 3 08-16-2023 Chronic Malaise and fatigue (7 sources) Fatigue; Translations: [Other malaise and fatigue] Onset: 4 11-04-2023 Episodic Mood disorders (6 sources) Recurrent major depressive episodes, mild ; Translations: [Major depressive disorder, recurrent, mild] Onset: 3 08-16-2023 Chronic Mood disorders (1 source) Mood disorders; Translations: [DEPRESSION UNSPECIFIED] Onset: 3 Nutritional deficiencies (2 sources) Vitamin D deficiency; Translations: [Vitamin D deficiency, unspecified] Onset: 4 12-26-2023 Chronic Other aftercare (1 source) buttermaker (current) use of aspirin; Translations: [DBA DEVELOPER 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 ASPIRIN] Onset: 3 Episodic Other aftercare (1 source) Other snf (current) drug therapy; Translations: [OTH DBA DEVELOPER CURRENT DRUG THERAPY] Onset: 3 Episodic Other aftercare (1 source) retirement (current) use of insulin; Translations: [FCI 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 INSULIN] Onset: 3 Episodic Other aftercare (1 source) retirement (current) use of oral hypoglycemic drugs; Translations: [FCI USE ORAL HYPOGLYCEMIC DX] Onset: 3 Episodic Other and unspecified benign neoplasm (2 sources) Benign neoplasm of soft tissue; Translations: [Melanocytic nevi, unspecified] 10-21-2023 Episodic Other hereditary and degenerative nervous system conditions (2 sources) Essential tremor; Translations: [Essential tremor] Onset: 4 12-26-2023 Chronic Other liver diseases (1 source) Abnormal levels [...] Translations: [Overweight] Onset: 4 11-06-2023 Episodic Other skin disorders [...] bilateral; Translations: [Hypermetropia, bilateral] Onset: 09-12-2017 Episodic Coronary atherosclerosis and other heart disease (5 sources) Presence of aortocoronary bypass graft; Translations: [Coronary angioplasty status] Onset: 01-10-2023 Episodic Intestinal obstruction without hernia (12 sources) Unspecified intestinal obstruction, unspecified as to partial versus complete obstruction; Translations: [Intestinal adhesions [bands], unspecified as to partial versus complete obstruction] Onset: 08-18-2022 Episodic Medical examination/evaluation (1 source) Encounter for general adult medical examination without abnormal findings; Translations: [Encounter for general adult medical examination without abnormal findings] Onset: 06-19-2017 Episodic Other nutritional; endocrine; and metabolic disorders (2 sources) Body mass index (BMI) 25.0-25.9, adult; Translations: [Body mass index (BMI) 25.0-25.9, adult] Onset: 11-06-2023 Episodic Other screening for suspected conditions (not mental disorders or infectious disease) (16 sources) Echocardiogram abnormal; Translations: [Nonspecific (abnormal) findings on radiological and other examination of other intrathoracic organs] Onset: 11-04-2023 11-06-2023 Episodic Unclassified (6 sources) Never smoked tobacco; Translations: [Never a smoker] Unclassified (1 source) Onset: 11-06-2023 11-06-2023 Results Test Name Value Interpretation Reference Range Facility LIPID PANEL, STANDARDon 0 Cholesterol [Mass/Vol] 149 mg/dL Normal <200 [facility] Comment on above: Order Comment: FASTI NG:YES FASTING: YES Performed By: #### 7 600 #### [facility] [address], [address] [place] [address] Real Estate Analyst: Ck Jarvis MD Cholesterol in HDL [Mass/Vol] 44 mg/dL Normal > OR = 40 [facility] Comment on above: Order Comment: FASTI NG:YES FASTING: YES Performed By: #### 7 600 #### [facility] [address], [address] [place] [address] Real Estate Analyst: Ck Jarvis MD Cholesterol in LDL [...] LDL-C. Ramy HERNANDEZ et al. GENIA. 2013;310(19): 8321-2329 (http://education.[place].Trainfox/faq/VXC413) Performed By: #### 7 600 #### [facility] [address], [address] [place] [address] Real Estate Analyst: Ck Jarvis MD Cholesterol.total/C holesterol in HDL [Mass ratio] 3.4 {ratio} Normal <5.0 [facility] Comment on above: Order Comment: FASTI NG:YES FASTING: YES Performed By: #### 7 600 #### [facility] [address], [address] [place] [address] Real Estate Analyst: Ck aJrvis MD NON HDL CHOLESTEROL 105 mg/dL (calc) Normal <130 [facility] Comment on above: Order Comment: FASTI NG:YES FASTING: YES Result Comment: For patients with diabetes plus 1 major ASCVD risk factor, treating to a non-HDL-C goal of <100 mg/dL (LDL-C of <70 mg/dL) is considered a therapeutic option. Your request to have a duplicate copy faxed has been acknowledged. Queued to: [phone] Performed By: #### 7 600 #### [facility] [address], [address] Real Estate Analyst: Ck Jarvis MD Triglyceride [Mass/Vol] 189 mg/dL High <150 [facility] Comment on above: Order Comment: FASTI NG:YES FASTING: YES Performed By: #### 7 600 #### [facility] [address], [address] Real Estate Analyst: Ck Jarvis MD XR shoulder RT min 2V*on XR shoulder RT min 2V* [facility] [address] [place] [address] XRay Report Signed Patient: Elsa Espinoza MR#: [id number] : 1955 Acct:[id number] Age/Sex: 68 / M ADM Date: 11/18/23 Loc: [facility] Room: Type: [facility] Attending Dr: Fred Chao DO Copies to: [...] PROCESS. Impression dictated by: Amaury Deshpande Jr., D.OElinor11/18/2023 4:35 PM Dictation Location: [place] [address] Transcribed By: [facility] 11/18/23 163 Dictated By: Amaury Deshpande Jr, DO 11/18/23 163 Signed By: 11/18/23 1635 [facility] No Panel Informationon 10-21 [facility] Consultation Noteon 01-11-20 Consultation Note [id number]:127 [facility] CBC AUTO DIFFon 01-05-2023 BASO # 0.0 103/ul Normal 0.0-0.1 [facility] Comment on above: Performed By: #### C VDTBH #### [facility] [address] [place] [address] Dr. Miladys Samuel Basophils/100 WBC (Bld) 0.6 % Normal 0.2-2.0 [facility] Comment on above: Performed By: #### C VDTBH #### [facility] [address] [place] [address] Dr. Miladys Samuel EO # 0.2 103/ul Normal 0.0-0.7 [facility] Comment on above: Performed By: #### C VDTBH #### [facility] [address] [place] [address] Dr. Miladys Samuel Eosinophils/100 WBC (Bld) 4.2 % Normal 0.9-7.0 [facility] Comment on above: Performed By: #### C VDTBH #### [facility] [address] [place] [address] Dr. Miladys Samuel Erythrocyte distribution width (RBC) [Ratio] 13.5 % Normal 11.0-15.0 [facility] Comment on above: Performed By: #### C VDTBH #### [facility] [address] [place] [address] Dr. Miladys Samuel Hematocrit (Bld) [Volume fraction] 40.0 % Critically low 42.0-54.0 [facility] Comment on above: Performed By: #### C VDTBH #### [facility] [address] [place] [address] Dr. Miladys Samuel Hemoglobin (Bld) [Mass/Vol] 12.9 g/dL Critically low 14.0-18.0 [facility] Comment on above: Performed By: #### C VDTBH #### [facility] [address] [place] [address] Dr. Miladys Samuel IG # 0.01 10e3/ul Normal 0.00-0.03 [facility] Comment on above: Performed By: #### C VDTBH #### [facility] [address] [place] [address] [address] Miladys Sameul IG % 0.3 % Normal 0.0-0.5 [facility] Comment on above: Performed By: #### C VDTBH #### [facility] [address] [place] [address] [address] Miladys Samuel LYMPH # 0.7 103/ul Critically low 1.2-3.8 [facility] Comment on above: Performed By: #### C VDTBH #### [facility] [address] [place] [address] [address] Miladys Samuel Lymphocytes/100 WBC (Bld) 19.5 % Critically low 20.5-60.0 [facility] Comment on above: Performed By: #### C VDTBH #### [facility] [address] [place] [address] Dr. Miladys Samuel MANUAL DIFF REQ NO Normal [facility] Comment on above: Performed By: #### C VDTBH #### [facility] [address] [place] [address] Dr. Miladys Samuel MCH (RBC) [Entitic mass] 27.6 pg Normal 25.9-34.0 [facility] Comment on above: Performed By: #### C VDTBH #### [facility] [address] [place] [address] Dr. Miladys Samuel MCHC (RBC) [Mass/Vol] 32.3 g/dL Normal 29.9-35.2 [facility] Comment on above: Performed By: #### C VDTBH #### [facility] [address] [place] [address] Dr. Miladys Samuel MCV (RBC) [Entitic vol] 85.7 fL Normal 80.0-94.0 [facility] Comment on above: Performed By: #### C VDTBH #### [facility] [address] [place] [address] Dr. Miladys Samuel MONO # 0.4 103/ul Normal 0.3-0.8 [facility] Comment on above: Performed By: #### C VDTB #### [facility] [address] [place] [address] [address] Miladys Samuel Monocytes/100 WBC (Bld) 10.3 % Normal 1.7-12.0 [facility] Comment on above: Performed By: #### C VDTBH #### [facility] [address] [address] [address] Miladys Samuel NEUT # 2.3 103/ul Normal 1.4-6.5 [facility] Comment on above: Performed By: #### C VDTBH #### [facility] [address] [place] [address] Dr. Miladys Samuel Neutrophils/100 WBC (Bld) 65.1 % Normal 43.0-75.0 [facility] Comment on above: Performed By: #### C VDTBH #### [facility] [address] [place] [address] Dr. Miladys Samuel Platelet mean volume (Bld) [Entitic vol] 10.1 fL Normal 9.5-13.5 [facility] Comment on above: Performed By: #### C VDTBH #### [facility] [address] [place] [address] Dr. Miladys Samuel PLT 103 103/ul Critically low 150-450 [facility] Comment on above: Performed By: #### C VDTBH #### [facility] [address] [place] [address] Dr. Miladys Samuel RBC 4.67 106/ul Critically low 4.70-6.10 [facility] Comment on above: Performed By: #### C VDTBH #### [facility] [address] [place] [address] Dr. Miladys Samuel WBC 3.6 103/ul Critically low 4.0-11.0 [facility] Comment on above: Performed By: #### C VDTBH #### [facility] [address] [place] [address] Dr. Miladys Samuel GLYCOHEMOGLOBIN A1Con 2022 ADA RECOMMENDATION SEE BELOW Normal [facility] Comment on above: Result Comment: ADA RECOMMENDED LIMIT 4.0 - 6.0 ADA THERAPEUTIC TARGET < 7.0 ACTION SUGGESTED > 7.0 Performed By: #### C VDTBH #### [facility] [address] [place] [address] Dr. Miladys Samuel Glucose [Mass/Vol] 194 mg/dL Normal [facility] Comment on above: Performed By: #### C VDTBH #### [facility] [address] [place] [address] Dr. Miladys Samuel HbA1c (Bld) [Mass fraction] 8.4 % Critically high 4.5-6.2 [facility] Comment on above: Performed By: #### C VDTBH #### [facility] [address] [place] [address] Dr. Miladys Samuel MAGNESIUMon 01-05-2023 Magnesium [Mass/Vol] 1.8 mg/dL Normal 1.8-2.4 [facility] Comment on above: Performed By: #### A MY #### [facility] [address] [place] [address] Dr. Miladys Samuel POINT OF CARE GLUCOSEon 12-09 Glucose [Mass/Vol] 253 mg/dL Critically high 74-106 [facility] Comment on above: Performed By: #### A MY #### [facility] [address] [place] [address] Dr. Miladys Samuel PROF CHEM 8 (BAS METB)on Anion gap [Moles/Vol] 9.1 mmol/L Normal [facility] Comment on above: Performed By: #### A MY #### [facility] [address] [place] [address] Dr. Miladys Samuel Calcium [Mass/Vol] 8.2 mg/dL Critically low 8.5-10.1 [facility] Comment on above: Performed By: #### A MY #### [facility] [address] [place] [address] Dr. Miladys Samuel Chloride [Moles/Vol] 106 mmol/L Normal 98-107 [facility] Comment on above: Performed By: #### A MY #### [facility] [address] [address] [address] Miladys Samuel CO2 [Moles/Vol] 30.1 mmol/L Normal 21.0-32.0 [facility] Comment on above: Performed By: #### A MY #### [facility] [address] [place] [address] Dr. Miladys Samuel Creatinine [Mass/Vol] 1.00 mg/dL Normal 0.70-1.30 [facility] Comment on above: Performed By: #### A MY #### [facility] [address] [place] [address] Dr. Miladys Samuel EGFR-AF MONTENEGRIN >60 Normal >=60 [facility] Comment on above: Performed By: #### A MY #### [facility] [address] [place] [address] Dr. Miladys Samuel EGFR-NON AF MONTENEGRIN >60 Normal >=60 [facility] Comment on above: Performed By: #### A MY #### [facility] [address] [place] [address] Dr. Miladys Samuel Glucose [Mass/Vol] 117 mg/dL Critically high 74-106 [facility] Comment on above: Performed By: #### A MY #### [facility] [address] [place] [address] Dr. Miladys Samuel Potassium [Moles/Vol] 4.2 mmol/L Normal 3.5-5.1 [facility] Comment on above: Performed By: #### A MY #### [facility] [address] [place] [address] Dr. Miladys Samuel Sodium [Moles/Vol] 141 mmol/L Normal 136-145 [facility] Comment on above: Performed By: #### A MY #### [facility] [address] [place] [address] Dr. Miladys Samuel Urea nitrogen [Mass/Vol] 9.0 mg/dL Normal 7.0-18.0 [facility] Comment on above: Performed By: #### A MY #### [facility] [address] [place] [address] Dr. Miladys Samuel Urea nitrogen/Creatinine [Mass ratio] 9.0 mg/mg Normal [facility] Comment on above: Performed By: #### A MY #### [facility] [address] [address] [address] Miladys Samuel XR ABD FLAT UP_PA [...] MONTY CHANEL Date: 2023-01-05 07:10 Normal [facility] CBC AUTO DIFFon 01-04-2023 BASO # 0.0 103/ul Normal 0.0-0.1 [facility] Comment on above: Performed By: #### L ACT #### [facility] [address] [place] [address] Dr. Miladys Samuel Basophils/100 WBC (Bld) 0.3 % Normal 0.2-2.0 [facility] Comment on above: Performed By: #### L ACT #### [facility] [address] [place] [address] Dr. Miladys Samuel EO # 0.1 103/ul Normal 0.0-0.7 [facility] Comment on above: Performed By: #### L ACT #### [facility] [address] [place] [address] Dr. Miladys Samuel Eosinophils/100 WBC (Bld) 0.9 % Normal 0.9-7.0 [facility] Comment on above: Performed By: #### L ACT #### [facility] [address] [place] [address] Dr. Miladys Samuel Erythrocyte distribution width (RBC) [Ratio] 13.7 % Normal 11.0-15.0 [facility] Comment on above: Performed By: #### L ACT #### [facility] [address] [place] [address] Dr. Miladys Samuel Hematocrit (Bld) [Volume fraction] 41.2 % Critically low 42.0-54.0 [facility] Comment on above: Performed By: #### L ACT #### [facility] [address] [place] [address] Dr. Miladys Samuel Hemoglobin (Bld) [Mass/Vol] 13.7 g/dL Critically low 14.0-18.0 [facility] Comment on above: Performed By: #### L ACT #### [facility] [address] [place] [address] Dr. Miladys Samuel IG # 0.02 10e3/ul Normal 0.00-0.03 [facility] Comment on above: Performed By: #### L ACT #### [facility] [address] [place] [address] Dr. Miladys Samuel IG % 0.3 % Normal 0.0-0.5 [facility] Comment on above: Performed By: #### L ACT #### [facility] [address] [address] [address] Miladys Samuel LYMPH # 0.6 103/ul Critically low 1.2-3.8 [facility] Comment on above: Performed By: #### L ACT #### [facility] [address] [address] [address] Miladys Samuel Lymphocytes/100 WBC (Bld) 9.9 % Critically low 20.5-60.0 [facility] Comment on above: Performed By: #### L ACT #### [facility] [address] [place] [address] Dr. Miladys Samuel MANUAL DIFF REQ NO Normal [facility] Comment on above: Performed By: #### L ACT #### [facility] [address] [place] [address] Dr. Miladys Samuel MCH (RBC) [Entitic mass] 28.0 pg Normal 25.9-34.0 [facility] Comment on above: Performed By: #### L ACT #### [facility] [address] [place] [address] Dr. Miladys Samuel MCHC (RBC) [Mass/Vol] 33.3 g/dL Normal 29.9-35.2 [facility] Comment on above: Performed By: #### L ACT #### [facility] [address] [place] [address] Dr. Miladys Samuel MCV (RBC) [Entitic vol] 84.1 fL Normal 80.0-94.0 [facility] Comment on above: Performed By: #### L ACT #### [facility] [address] [place] [address] Dr. Miladys Samuel MONO # 0.6 103/ul Normal 0.3-0.8 [facility] Comment on above: Performed By: #### L ACT #### [facility] [address] [place] [address] Dr. Miladys Samuel Monocytes/100 WBC (Bld) 9.3 % Normal 1.7-12.0 [facility] Comment on above: Performed By: #### L ACT #### [facility] [address] [address] [address] Miladys Samuel NEUT # 5.1 103/ul Normal 1.4-6.5 [facility] Comment on above: Performed By: #### L ACT #### [facility] [address] [address] [address] Miladys Samuel Neutrophils/100 WBC (Bld) 79.3 % Critically high 43.0-75.0 [facility] Comment on above: Performed By: #### L ACT #### [facility] [address] [address] [address] Miladys Samuel Platelet mean volume (Bld) [Entitic vol] 9.9 fL Normal 9.5-13.5 [facility] Comment on above: Performed By: #### L ACT #### [facility] [address] [address] [address] Miladys Samuel PLT 126 103/ul Critically low 150-450 [facility] Comment on above: Performed By: #### L ACT #### [facility] [address] [address] [address] Miladys Samuel RBC 4.90 106/ul Normal 4.70-6.10 [facility] Comment on above: Performed By: #### L ACT #### [facility] [address] [address] [address] Miladys Samuel WBC 6.5 103/ul Normal 4.0-11.0 [facility] Comment on above: Performed By: #### L ACT #### [facility] [address] [address] [address] Miladys Samuel MAGNESIUMon 01-04-2023 Magnesium [Mass/Vol] 2.6 mg/dL Critically high 1.8-2.4 [facility] Comment on above: Performed By: #### M G, BMP, PHOS ####[facility] [address] [address]Dr. Miladys Samuel PHOSPHORUSon 01-04-2023 Phosphate [Mass/Vol] 5.5 mg/dL Critically high 2.6-4.7 [facility] Comment on above: Performed By: #### OTTONIEL Blanco, PHOS ####[facility] [address] [address]Dr. Miladys Samuel POINT OF CARE GLUCOSEon 12-09 Glucose [Mass/Vol] 167 mg/dL Critically high 74-106 [facility] Comment on above: Performed By: #### P OCGLUC ####[facility] [address] [place], [place] [address]Dr. Cecilleearnest Samuel Glucose [Mass/Vol] 118 mg/dL Critically high 74-106 [facility] Comment on above: Performed By: #### P OCGLUC ####[facility] [address] [place], [place] [address]Dr. Miladys Samuel PROF CHEM 8 (BAS METB)on Anion gap [Moles/Vol] 15.7 mmol/L Normal [facility] Comment on above: Performed By: #### OTTONIEL Blanco PHOS ####[facility] [address] [place], [place] [address]Dr. Miladys Samuel Calcium [Mass/Vol] 8.8 mg/dL Normal 8.5-10.1 [facility] Comment on above: Performed By: #### OTTONIEL Blanco, PHOS ####[facility] [address] [place], [place] [address]Dr. Cecilleearnest Samuel Chloride [Moles/Vol] 99 mmol/L Normal 98-107 [facility] Comment on above: Performed By: #### OTTONIEL Blanco, PHOS ####[facility] [address] [place], [place] [address]Dr. Miladys Samuel CO2 [Moles/Vol] 28.8 mmol/L Normal 21.0-32.0 [facility] Comment on above: Performed By: #### OTTONIEL Blanco, PHOS ####[facility] [address] [place], [place] [address]Dr. Miladys Samuel Creatinine [Mass/Vol] 0.98 mg/dL Normal 0.70-1.30 [facility] Comment on above: Performed By: #### OTTONIEL Blanco, PHOS ####[facility] [address] [id number]. Miladys Samuel EGFR-AF MONTENEGRIN >60 Normal >=60 [facility] Comment on above: Performed By: #### OTTONIEL Blanco, PHOS ####[facility] [address] [id number]. Miladys Samuel EGFR-NON AF MONTENEGRIN >60 Normal >=60 [facility] Comment on above: Performed By: #### OTTONIEL Blanco, PHOS ####[facility] [address] [address]Dr. Miladys Samuel Glucose [Mass/Vol] 153 mg/dL Critically high 74-106 [facility] Comment on above: Performed By: #### OTTONIEL Blanco, PHOS ####[facility] [address] [address]Dr. Miladys Samuel Potassium [Moles/Vol] 4.5 mmol/L Normal 3.5-5.1 [facility] Comment on above: Performed By: #### OTTONIEL Blanco, PHOS ####[facility] [address] [address]Dr. Cecilleearnest Jimmie Sodium [Moles/Vol] 139 mmol/L Normal 136-145 [facility] Comment on above: Performed By: #### OTTONIEL Blanco, PHOS ####[facility] [address] [address]Dr. Miladys Samuel Urea nitrogen [Mass/Vol] 15.0 mg/dL Normal 7.0-18.0 [facility] Comment on above: Performed By: #### OTTONIEL Blanco, PHOS ####[facility] [address] [address]Dr. Cecilleearnest Jimmie Urea nitrogen/Creatinine [Mass ratio] 15.3 mg/mg Normal [facility] Comment on above: Performed By: #### OTTONIEL Blanco, PHOS ####[facility] [address] [address]Dr. Cecilleearnest Samuel XR ABD FLAT UP_PA Bird [...] SHAUNA REYES Date: 2023-01-04 08:37 Normal [facility] XR KUB 1 VIEWon 01-04-2023 [...] CRISTAL MI Date: 2023-01-04 00:40 Normal [facility] XR SMALL BOWELon 01-04-2023 XR [...] JESSE VO Date: 2023-01-04 17:36 Normal [facility] CBC AUTO DIFFon 01-03-2023 BASO # 0.0 103/ul Normal 0.0-0.1 [facility] Comment on above: Performed By: #### C BC ####[facility] [address] [address]Dr. Miladys Samuel Basophils/100 WBC (Bld) 0.1 % Critically low 0.2-2.0 [facility] Comment on above: Performed By: #### C BC ####[facility] [address] [place], [place] [address]Dr. Miladys Samuel EO # 0.0 103/ul Normal 0.0-0.7 [facility] Comment on above: Performed By: #### C BC ####[facility] [address] [place], [place] [address]Dr. Miladys Jimmie Eosinophils/100 WBC (Bld) 0.5 % Critically low 0.9-7.0 [facility] Comment on above: Performed By: #### C BC ####[facility] [address] [place], [place] [address]Dr. Miladys Samuel Erythrocyte distribution width (RBC) [Ratio] 13.3 % Normal 11.0-15.0 [facility] Comment on above: Performed By: #### C BC ####[facility] [address] [place], [place] [address]Dr. Miladys Samuel Hematocrit (Bld) [Volume fraction] 41.3 % Critically low 42.0-54.0 [facility] Comment on above: Performed By: #### C BC ####[facility] [address] [place], [place] [address]Dr. Miladys Samuel Hemoglobin (Bld) [Mass/Vol] 13.8 g/dL Critically low 14.0-18.0 [facility] Comment on above: Performed By: #### C BC ####[facility] [address] [place], [place] [address]Dr. Cecilleearnest Samuel IG # 0.03 10e3/ul Normal 0.00-0.03 [facility] Comment on above: Performed By: #### C BC ####[facility] [address] [place], [place] [address]Dr. Cecilleearnest Samuel IG % 0.4 % Normal 0.0-0.5 [facility] Comment on above: Performed By: #### C BC ####[facility] [address] [id number]. Miladys Jimmie LYMPH # 0.7 103/ul Critically low 1.2-3.8 [facility] Comment on above: Performed By: #### C BC ####[facility] [address] [id number]. Miladys Samuel Lymphocytes/100 WBC (Bld) 9.2 % Critically low 20.5-60.0 [facility] Comment on above: Performed By: #### C BC ####[facility] [address] [id number]. Miladys Samuel MANUAL DIFF REQ NO Normal [facility] Comment on above: Performed By: #### C BC ####[facility] [address] [id number]. Miladys Samuel MCH (RBC) [Entitic mass] 27.9 pg Normal 25.9-34.0 [facility] Comment on above: Performed By: #### C BC ####[facility] [address] [id number]. Cecilleearnest Samuel MCHC (RBC) [Mass/Vol] 33.4 g/dL Normal 29.9-35.2 [facility] Comment on above: Performed By: #### C BC ####[facility] [address] [id number]. Miladys Samuel MCV (RBC) [Entitic vol] 83.6 fL Normal 80.0-94.0 [facility] Comment on above: Performed By: #### C BC ####[facility] [address] [id number]. Miladys Samuel MONO # 0.4 103/ul Normal 0.3-0.8 [facility] Comment on above: Performed By: #### C BC ####[facility] [address] [id number]. Miladys Samuel Monocytes/100 WBC (Bld) 5.7 % Normal 1.7-12.0 [facility] Comment on above: Performed By: #### C BC ####[facility] [address] [address]Dr. Miladys Samuel NEUT # 6.5 103/ul Normal 1.4-6.5 [facility] Comment on above: Performed By: #### C BC ####[facility] [address] [id number]. Miladys Samuel Neutrophils/100 WBC (Bld) 84.1 % Critically high 43.0-75.0 [facility] Comment on above: Performed By: #### C BC ####[facility] [address] [address]Dr. Miladys Samuel Platelet mean volume (Bld) [Entitic vol] 9.9 fL Normal 9.5-13.5 [facility] Comment on above: Performed By: #### C BC ####[facility] [address] [address]Dr. Miladys Samuel PLT 130 103/ul Critically low 150-450 [facility] Comment on above: Performed By: #### C BC ####[facility] [address] [address]Dr. Miladys Samuel RBC 4.94 106/ul Normal 4.70-6.10 [facility] Comment on above: Performed By: #### C BC ####[facility] [address] [address]Dr. Miladys Samuel WBC 7.7 103/ul Normal 4.0-11.0 [facility] Comment on above: Performed By: #### C BC ####[facility] [id number]. Miladys Samuel CT ABD/PELV W CONon 01-04-20 [...] by: CONSTANTINO HILL Date: 2023-01-03 21:05 Normal [facility] LIPASEon 01-03-2023 Lipase [Catalytic activity/Vol] 80.0 U/L Normal 73.0-393.0 [facility] Comment on above: Performed By: #### C VDTBH #### [facility] [address] [place] [address] Dr. Miladys Samuel LIVER PROFILEon 01-03-2023 Albumin [Mass/Vol] 4.1 g/dL Normal 3.4-5.0 [facility] Comment on above: Performed By: #### C VDTBH #### [facility] [address] [place] [address] Dr. Miladys Samuel Albumin/Globulin [Mass ratio] 1.3 {ratio} Normal [facility] Comment on above: Performed By: #### C VDTBH #### [facility] [address] [place] [address] Dr. Miladys Samuel ALP [Catalytic activity/Vol] 61 U/L Normal 46-116 [facility] Comment on above: Performed By: #### C VDTBH #### [facility] [address] [place] [address] Dr. Miladys Samuel ALT [Catalytic activity/Vol] 35 U/L Normal 16-63 [facility] Comment on above: Performed By: #### C VDTBH #### [facility] [address] [place] [address] Dr. Miladys Samuel AST [Catalytic activity/Vol] 28 U/L Normal 15-37 [facility] Comment on above: Performed By: #### C VDTBH #### [facility] [address] [place] [address] Dr. Miladys Samuel BILI, CONJUGATED 0.1 mg/dL Normal 0.0-0.2 [facility] Comment on above: Performed By: #### C VDTBH #### [facility] [address] [place] [address] Dr. Miladys Samuel Bilirubin [Mass/Vol] 0.5 mg/dL Normal 0.2-1.0 [facility] Comment on above: Performed By: #### C VDTBH #### [facility] [address] [place] [address] Dr. Miladys Samuel Globulin (S) [Mass/Vol] 3.2 g/dL Normal [facility] Comment on above: Performed By: #### C VDTBH #### [facility] [address] [address] [address] Miladys Samuel Protein [Mass/Vol] 7.3 g/dL Normal 6.4-8.2 [facility] Comment on above: Performed By: #### C VDTBH #### [facility] [facility] [address] [place] [address] Dr. Miladys Samuel MAGNESIUMon 01-03-2023 Magnesium [Mass/Vol] 1.4 mg/dL Critically low 1.8-2.4 [facility] Comment on above: Performed By: #### M G ####[facility] [address] [place] [address]Dr. Miladys Samuel PROF CHEM 8 (BAS METB)on Anion gap [Moles/Vol] 12.9 mmol/L Normal [facility] Comment on above: Performed By: #### C VDTBH #### [facility] Laboratory [address] [place] [address] Dr. Miladys Samuel Calcium [Mass/Vol] 9.7 mg/dL Normal 8.5-10.1 [facility] Comment on above: Performed By: #### C VDTBH #### [facility] Laboratory [address] [place] [address] Dr. Miladys Samuel Chloride [Moles/Vol] 99 mmol/L Normal 98-107 [facility] Comment on above: Performed By: #### C VDTBH #### [facility] Laboratory [address] [place] [address] Dr. Miladys Samuel CO2 [Moles/Vol] 28.3 mmol/L Normal 21.0-32.0 [facility] Comment on above: Performed By: #### C VDTBH #### [facility] Laboratory [address] [place] [address] Dr. Miladys Samuel Creatinine [Mass/Vol] 1.10 mg/dL Normal 0.70-1.30 [facility] Comment on above: Performed By: #### C VDTBH #### [facility] Laboratory [address] [place] [address] Dr. Miladys Samuel EGFR-AF MONTENEGRIN >60 Normal >=60 [facility] Comment on above: Performed By: #### C VDTBH #### [facility] [address] [place] [address] Dr. Miladys Samuel EGFR-NON AF MONTENEGRIN >60 Normal >=60 [facility] Comment on above: Performed By: #### C VDTBH #### [facility] Laboratory [address] [place] [address] Dr. Miladys Samuel Glucose [Mass/Vol] 155 mg/dL Critically high 74-106 [facility] Comment on above: Performed By: #### C VDTBH #### [facility] Laboratory [address] [place] [address] Dr. Miladys Samuel Potassium [Moles/Vol] 4.2 mmol/L Normal 3.5-5.1 [facility] Comment on above: Performed By: #### C VDTBH #### [facility] Laboratory [address] [place] [address] Dr. Miladys Samuel Sodium [Moles/Vol] 136 mmol/L Normal 136-145 [facility] Comment on above: Performed By: #### C VDTBH #### [facility] [address] [place] [address] Dr. Miladys Samuel Urea nitrogen [Mass/Vol] 13.0 mg/dL Normal 7.0-18.0 [facility] Comment on above: Performed By: #### C VDTBH #### [facility] [address] [place] [address] Dr. Miladys Samuel Urea nitrogen/Creatinine [Mass ratio] 11.8 mg/mg Normal [facility] Comment on above: Performed By: #### C VDTBH #### [facility] Laboratory [address] [place] [address] Dr. Miladys Samuel PROTIMEon 01-03-2023 INR Coag (PPP) [Relative time] 1.04 {INR} Normal [facility] Comment on above: Performed By: #### P TT, PT #### [facility] [address] [place] [address] Dr. Miladys Samuel INR GUIDELINES SEE BELOW Normal [facility] Comment on above: Result Comment: BRITTA RED INR: 2.0 - 3.0 CONDITIONS NOT LISTED BELOW 2.5 - 3.5 FOR PROSTHETIC HEART VALVE REPLACEMENT 2.5 - 3.5 RECURRENT THROMBOSIS Performed By: #### P TT, PT #### [facility] [address] [place] [address] Dr. Miladys Samuel PT Coag (PPP) [Time] 11.0 s Normal 9.0-11.6 [facility] Comment on above: Performed By: #### P TT, PT #### [facility] Laboratory [address] [place] [address] Dr. Miladys Samuel PTTon 01-03-2023 aPTT Coag (Bld) [Time] 28.3 s Normal 22.3-36.2 [facility] Comment on above: Performed By: #### P TT, PT #### [facility] Laboratory [address] [place] [address] Dr. Miladys Samuel TROPONIN, HIGH SENSITIVITYon 01-03-2023 HSTROP 8.0 pg/mL Normal 4.0-76.1 [facility] Comment on above: Result Comment: CUT- OFF POINTS HAVE BEEN ESTABLISHED BASED ON THE FOURTH UNIVERSAL DEFINITIONS OF MYOCARDIAL INFARCTION. THE UPPER REFERENCE LIMIT (URL) OF TROPONIN, DEFINED THE 99TH PERCENTILE OF cTnI DISTRIBUTION IN A REFERENCE POPULATION, HAS BEEN CONFIRMED THE DECISION THRESHOLD FOR AK DIAGNOSIS. Performed By: #### C VDTBH #### [facility] Laboratory [address] [place] [address] Dr. Miladys Samuel AMYLASEon 11-04-2022 Amylase [Catalytic activity/Vol] 28 U/L Normal 25-115 [facility] Comment on above: Performed By: #### L IPA, NOHELIA #### [facility] [address] [place] [address] Dr. Miladys Samuel CBC AUTO DIFFon 11-04-2022 BASO # 0.0 103/ul Normal 0.0-0.1 [facility] Comment on above: Performed By: #### C VDTBH #### [facility] [address] [place] [address] Dr. Miladys Samuel Basophils/100 WBC (Bld) 0.2 % Normal 0.2-2.0 [facility] Comment on above: Performed By: #### C VDTBH #### [facility] [address] [place] [address] Dr. Miladys Sameul EO # 0.1 103/ul Normal 0.0-0.7 [facility] Comment on above: Performed By: #### C VDTBH #### [facility] [address] [place] [address] Dr. Miladys Samuel Eosinophils/100 WBC (Bld) 2.0 % Normal 0.9-7.0 [facility] Comment on above: Performed By: #### C VDTBH #### [facility] [address] [place] [address] Dr. Miladys Samuel Erythrocyte distribution width (RBC) [Ratio] 14.4 % Normal 11.0-15.0 [facility] Comment on above: Performed By: #### C VDTBH #### [facility] Laboratory [address] [place] [address] Dr. Miladys Samuel Hematocrit (Bld) [Volume fraction] 42.0 % Normal 42.0-54.0 [facility] Comment on above: Performed By: #### C VDTBH #### [facility] [address] [place] [address] Dr. Miladys Samuel Hemoglobin (Bld) [Mass/Vol] 14.0 g/dL Normal 14.0-18.0 [facility] Comment on above: Performed By: #### C VDTBH #### [facility] [address] [place] [address] Dr. Miladys Samuel IG # 0.03 10e3/ul Normal 0.00-0.03 [facility] Comment on above: Performed By: #### C VDTBH #### [facility] [address] [place] [address] Dr. Miladys Samuel IG % 0.5 % Normal 0.0-0.5 [facility] Comment on above: Performed By: #### C VDTBH #### [facility] Laboratory [address] [address] [address] Miladys Samuel LYMPH # 0.6 103/ul Critically low 1.2-3.8 [facility] Comment on above: Performed By: #### C VDTBH #### [facility] Laboratory [address] [place] [address] Dr. Miladys Samule Lymphocytes/100 WBC (Bld) 10.2 % Critically low 20.5-60.0 [facility] Comment on above: Performed By: #### C VDTBH #### [facility] [address] [address] [address] Miladys Samuel MANUAL DIFF REQ NO Normal [facility] Comment on above: Performed By: #### C VDTBH #### [facility] Laboratory [address] [place] [address] Dr. Miladys Samuel MCH (RBC) [Entitic mass] 27.8 pg Normal 25.9-34.0 [facility] Comment on above: Performed By: #### C VDTBH #### [facility] [address] [place] [address] Dr. Miladys Samuel MCHC (RBC) [Mass/Vol] 33.3 g/dL Normal 29.9-35.2 [facility] Comment on above: Performed By: #### C VDTBH #### [facility] [address] [place] [address] Dr. Miladys Samuel MCV (RBC) [Entitic vol] 83.3 fL Normal 80.0-94.0 [facility] Comment on above: Performed By: #### C VDTBH #### [facility] [address] [place] [address] Dr. Miladys Samuel MONO # 0.5 103/ul Normal 0.3-0.8 [facility] Comment on above: Performed By: #### C VDTBH #### [facility] [address] [place] [address] Dr. Miladys Samuel Monocytes/100 WBC (Bld) 8.0 % Normal 1.7-12.0 [facility] Comment on above: Performed By: #### C VDTBH #### [facility] Laboratory [address] [address] [address] Miladys Samuel NEUT # 4.8 103/ul Normal 1.4-6.5 [facility] Comment on above: Performed By: #### C VDTBH #### [facility] [address] [address] [address] Miladys Samuel Neutrophils/100 WBC (Bld) 79.1 % Critically high 43.0-75.0 [facility] Comment on above: Performed By: #### C VDTBH #### [facility] [address] [address] [address] Miladys Samuel Platelet mean volume (Bld) [Entitic vol] 9.8 fL Normal 9.5-13.5 [facility] Comment on above: Performed By: #### C VDTBH #### [facility] [address] [address] [address] Miladys Samuel PLT 111 103/ul Critically low 150-450 [facility] Comment on above: Performed By: #### C VDTBH #### [facility] [address] [address] [address] Miladys Sameul RBC 5.04 106/ul Normal 4.70-6.10 [facility] Comment on above: Performed By: #### C VDTBH #### [facility] [address] [address] [address] Miladys Samuel WBC 6.0 103/ul Normal 4.0-11.0 [facility] Comment on above: Performed By: #### C VDTBH #### [facility] [address] [address] [address] Miladys Samuel LIPASEon 11-04-2022 Lipase [Catalytic activity/Vol] 73.0 U/L Normal 73.0-393.0 [facility] Comment on above: Performed By: #### L IPA, NOHELIA ####[facility] [address] [place] [address]Dr. Miladys Samuel POINT OF CARE GLUCOSEon 10-11 Glucose [Mass/Vol] 222 mg/dL Critically high 74-106 [facility] Comment on above: Performed By: #### A MY #### [facility] [address] [address] [address] Miladys Samuel PROF 14(COMP METB)on 023 Albumin [Mass/Vol] 3.7 g/dL Normal 3.4-5.0 [facility] Comment on above: Performed By: #### C MP ####[facility] [address] [place] [address]DrElinor Samuel Albumin/Globulin [Mass ratio] 1.4 {ratio} Normal [facility] Comment on above: Performed By: #### C MP ####[facility] [address] [place] [address]Dr. Miladys Samuel ALP [Catalytic activity/Vol] 77 U/L Normal 46-116 [facility] Comment on above: Performed By: #### C MP ####[facility] [address] [place] [address]DrElinor Samuel ALT [Catalytic activity/Vol] 116 U/L Critically high 16-63 [facility] Comment on above: Performed By: #### C MP ####[facility] [address] [place] [address]DrElinor Samuel Anion gap [Moles/Vol] 14.1 mmol/L Normal [facility] Comment on above: Performed By: #### C MP ####[facility] [address] [place] [address]DrElinor Samuel AST [Catalytic activity/Vol] 54 U/L Critically high 15-37 [facility] Comment on above: Performed By: #### C MP ####[facility] [address] [place], [place] [address]DrElinor Samuel Bilirubin [Mass/Vol] 0.6 mg/dL Normal 0.2-1.0 [facility] Comment on above: Performed By: #### C MP ####[facility] [address] [place], [place] [address]DrElinor Samuel Calcium [Mass/Vol] 8.8 mg/dL Normal 8.5-10.1 [facility] Comment on above: Performed By: #### C MP ####[facility] [address] [place] [address]Dr. Miladys Samuel Chloride [Moles/Vol] 101 mmol/L Normal 98-107 [facility] Comment on above: Performed By: #### C MP ####[facility] [address] [place] [address]Dr. Miladys Samuel CO2 [Moles/Vol] 27.8 mmol/L Normal 21.0-32.0 [facility] Comment on above: Performed By: #### C MP ####[facility] [address] [place], [place] [address]Dr. Miladys Samuel Creatinine [Mass/Vol] 0.79 mg/dL Normal 0.70-1.30 [facility] Comment on above: Performed By: #### C MP ####[facility] [address] [place], [place] [address]Dr. Miladys Samuel EGFR-AF MONTENEGRIN >60 Normal >=60 [facility] Comment on above: Performed By: #### C MP ####[facility] [address] [place], [place] [address]Dr. Miladys Samuel EGFR-NON AF MONTENEGRIN >60 Normal >=60 [facility] Comment on above: Performed By: #### C MP ####[facility] [address] [place] [address]Dr. Miladys Samuel Globulin (S) [Mass/Vol] 2.7 g/dL Normal [facility] Comment on above: Performed By: #### C MP ####[facility] [address] [place] [address]Dr. Miladys Jimmie Glucose [Mass/Vol] 153 mg/dL Critically high 74-106 [facility] Comment on above: Performed By: #### C MP ####[facility] [address] [place] [address]Dr. Miladys Samuel Potassium [Moles/Vol] 3.9 mmol/L Normal 3.5-5.1 [facility] Comment on above: Performed By: #### C MP ####[facility] [address] [place], [place] [address]Pd. Miladys Samuel Protein [Mass/Vol] 6.4 g/dL Normal 6.4-8.2 [facility] Comment on above: Performed By: #### C MP ####[facility] [address] [place], [place] [address]Hw. Miladys Samuel Sodium [Moles/Vol] 139 mmol/L Normal 136-145 [facility] Comment on above: Performed By: #### C MP ####[facility] [address] [place], [place] [address]Bq. Miladys Samuel Urea nitrogen [Mass/Vol] 9.0 mg/dL Normal 7.0-18.0 [facility] Comment on above: Performed By: #### C MP ####[facility] [address] [place], [place] [address]Wi. Miladys Samuel Urea nitrogen/Creatinine [Mass ratio] 11.4 mg/mg Normal [facility] Comment on above: Performed By: #### C MP ####[facility] [address] [place], [place] [address]Ed. Miladys Samuel XR KUB 1 VIEWon 11-04-2022 [...] MARTA COLEMAN Date: 2022-11-04 02:22 Normal [facility] AMYLASEon 11-03-2022 Amylase [Catalytic activity/Vol] 31 U/L Normal 25-115 [facility] Comment on above: Performed By: #### A MY #### [facility] Laboratory [address] [place] [address] Dr. Miladys Samuel CBC AUTO DIFFon 11-03-2022 BASO # 0.0 103/ul Normal 0.0-0.1 [facility] Comment on above: Performed By: #### A MY #### [facility] Laboratory [address] [place] [address] Dr. Miladys Samuel Basophils/100 WBC (Bld) 0.2 % Normal 0.2-2.0 [facility] Comment on above: Performed By: #### A MY #### [facility] Laboratory [address] [place] [address] Dr. Miladys Samuel EO # 0.1 103/ul Normal 0.0-0.7 [facility] Comment on above: Performed By: #### A MY #### [facility] Laboratory [address] [place] [address] Dr. Miladys Samuel Eosinophils/100 WBC (Bld) 1.5 % Normal 0.9-7.0 [facility] Comment on above: Performed By: #### A MY #### [facility] Laboratory [address] [place] [address] Dr. Miladys Samuel Erythrocyte distribution width (RBC) [Ratio] 14.0 % Normal 11.0-15.0 [facility] Comment on above: Performed By: #### A MY #### [facility] Laboratory [address] [place] [address] Dr. Miladys Samuel Hematocrit (Bld) [Volume fraction] 40.0 % Critically low 42.0-54.0 [facility] Comment on above: Performed By: #### A MY #### [facility] Laboratory [address] [place] [address] Dr. Miladys Samuel Hemoglobin (Bld) [Mass/Vol] 13.4 g/dL Critically low 14.0-18.0 [facility] Comment on above: Performed By: #### A MY #### [facility] Laboratory [address] [place] [address] Dr. Miladys Samuel IG # 0.02 10e3/ul Normal 0.00-0.03 [facility] Comment on above: Performed By: #### A MY #### [facility] Laboratory [address] [place] [address] Dr. Miladys Samuel IG % 0.4 % Normal 0.0-0.5 [facility] Comment on above: Performed By: #### A MY #### [facility] Laboratory [address] [address] [address] Miladys Samuel LYMPH # 0.8 103/ul Critically low 1.2-3.8 [facility] Comment on above: Performed By: #### A MY #### [facility] Laboratory [address] [place] [address] Dr. Miladys Samuel Lymphocytes/100 WBC (Bld) 14.2 % Critically low 20.5-60.0 [facility] Comment on above: Performed By: #### A MY #### [facility] Laboratory [address] [place] [address] Dr. Miladys Samuel MANUAL DIFF REQ NO Normal [facility] Comment on above: Performed By: #### A MY #### [facility] Laboratory [address] [place] [address] Dr. Miladys Samuel MCH (RBC) [Entitic mass] 27.7 pg Normal 25.9-34.0 [facility] Comment on above: Performed By: #### A MY #### [facility] Laboratory [address] [place] [address] Dr. Miladys Samuel MCHC (RBC) [Mass/Vol] 33.5 g/dL Normal 29.9-35.2 [facility] Comment on above: Performed By: #### A MY #### [facility] Laboratory [address] [place] [address] Dr. Miladys Samuel MCV (RBC) [Entitic vol] 82.6 fL Normal 80.0-94.0 [facility] Comment on above: Performed By: #### A MY #### [facility] Laboratory [address] [place] [address] Dr. Miladys Samuel MONO # 0.6 103/ul Normal 0.3-0.8 [facility] Comment on above: Performed By: #### A MY #### [facility] Laboratory [address] [place] [address] Dr. Miladys Samuel Monocytes/100 WBC (Bld) 10.9 % Normal 1.7-12.0 [facility] Comment on above: Performed By: #### A MY #### [facility] Laboratory [address] [place] [address] Dr. Miladys Samuel NEUT # 3.9 103/ul Normal 1.4-6.5 [facility] Comment on above: Performed By: #### A MY #### [facility] Laboratory [address] [place] [address] Dr. Miladys Samuel Neutrophils/100 WBC (Bld) 72.8 % Normal 43.0-75.0 [facility] Comment on above: Performed By: #### A MY #### [facility] Laboratory [address] [place] [address] Dr. Miladys Samuel Platelet mean volume (Bld) [Entitic vol] 9.6 fL Normal 9.5-13.5 [facility] Comment on above: Performed By: #### A MY #### [facility] Laboratory [address] [place] [address] Dr. Miladys Samuel PLT 121 103/ul Critically low 150-450 [facility] Comment on above: Performed By: #### A MY #### [facility] Laboratory [address] [place] [address] Dr. Miladys Samuel RBC 4.84 106/ul Normal 4.70-6.10 [facility] Comment on above: Performed By: #### A MY #### [facility] Laboratory [address] [place] [address] Dr. Miladys Samuel WBC 5.3 103/ul Normal 4.0-11.0 [facility] Comment on above: Performed By: #### A MY #### [facility] Laboratory [address] [place] [address] Dr. Miladys Samuel ER URINE PROFILEon 3 Bilirubin Ql (U) Negative Normal NEGATIVE [facility] Comment on above: Performed By: #### KIRK RODRIGUEZICRO ####[facility] [address] [place] [address]Dr. Miladys Samuel Clarity (U) CLEAR Normal CLEAR [facility] Comment on above: Performed By: #### KIRK RODRIGUEZICRO ####[facility] [address] [place] [address]Dr. Miladys Samuel Color (U) YELLOW Normal YELLOW [facility] Comment on above: Performed By: #### Brooks FORRESTER UMICRO ####[facility] [address] [address]Dr. Miladys Samuel ERUAHD A micrscopic examina tion will be performed if indicated. Normal [facility] Comment on above: Performed By: #### SAMUEL RODRIGUEZRO ####[facility] [address] [place], [place] [address]Dr. Miladys Samuel Glucose Ql (U) Negative Normal NEGATIVE [facility] Comment on above: Performed By: #### Brooks FORRESTER UMICRO ####[facility] [address] [place], [place] [address]Dr. Miladys Samuel Hemoglobin Ql (U) LARGE Abnormal NEGATIVE [facility] Comment on above: Performed By: #### Brooks FORRESTER UMICRO ####[facility] [address] [place], [place] [address]Dr. Miladys Samuel Ketones Ql (U) TRACE Abnormal NEGATIVE [facility] Comment on above: Performed By: #### KIRK RODRIGUEZICRO ####[facility] [address] [place], [place] [address]Dr. Miladys Samuel LEUKOCYTES Negative Normal NEGATIVE [facility] Comment on above: Performed By: #### SAMUEL RODRIGUEZRO ####[facility] [address] [place], [place] [address]Dr. Miladys Samuel Nitrite Ql (U) Negative Normal NEGATIVE [facility] Comment on above: Performed By: #### SAMUEL RODRIGUEZRO ####[facility] [address] [place], [place] [address]Dr. Miladys Samuel pH (U) 6.0 [pH] Normal 5-9 [facility] Comment on above: Performed By: #### GUIDO RODRIGUEZ ####[facility] [address] [place] [address]Dr. Miladys Samuel SPEC GRAVITY 1.010 Normal 1.005-<=1.0 25 [facility] Comment on above: Performed By: #### GUIDO RODRIGUEZ ####[facility] [address] [place] [address]Dr. Miladys Samuel UA PROTEIN Negative Normal NEGATIVE/ TRACE [facility] Comment on above: Performed By: #### GUIDO RODRIGUEZ ####[facility] [address] [place] [address]Dr. Miladys Samuel UR MICRO IND INDICATED Normal [facility] Comment on above: Performed By: #### GUIDO RODRIGUEZ ####[facility] [address] [place] [address]Dr. Miladys Samuel Urobilinogen Qn (U) 0.2 {Kathie'U}/dL Normal 0.2 - 1. 0 [facility] Comment on above: Performed By: #### GUIDO RODRIGUEZ ####[facility] [address] [place] [address]Dr. Miladys Samuel LACTATE/LACTIC ACIDon 2022 Lactate [Moles/Vol] 1.9 mmol/L Normal 0.4-1.9 [facility] Comment on above: Performed By: #### A MY #### [facility] [address] [address] [address] Mialdys Samuel LIPASEon 11-03-2022 Lipase [Catalytic activity/Vol] 106.0 U/L Normal 73.0-393.0 [facility] Comment on above: Performed By: #### A MY #### [facility] [address] [address] [address] Miladys Samuel POINT OF CARE GLUCOSEon 10-11 Glucose [Mass/Vol] 190 mg/dL Critically high 74-106 [facility] Comment on above: Performed By: #### L ACT #### [facility] [address] [address] [address] Miladys Samuel Glucose [Mass/Vol] 115 mg/dL Critically high -106 [facility] Comment on above: Performed By: #### P OCGLUC ####[facility] [address] [place] [id number] Samuel Glucose [Mass/Vol] 134 mg/dL Critically high -106 [facility] Comment on above: Performed By: #### P OCGLUC #### [facility] [address] [address] [address] Miladys Samuel Glucose [Mass/Vol] 153 mg/dL Critically high -106 [facility] Comment on above: Performed By: #### P OCGLUC ####[facility] [address] [place] [address]Dr. Miladys Samuel PROF CHEM 8 (BAS METB)on Anion gap [Moles/Vol] 11.0 mmol/L Normal [facility] Comment on above: Performed By: #### B MP ####[facility] [address] [place] [address]DrElinor Samuel Calcium [Mass/Vol] 8.5 mg/dL Normal 8.5-10.1 [facility] Comment on above: Performed By: #### B MP ####[facility] [address] [place] [address]DrElinor Samuel Chloride [Moles/Vol] 101 mmol/L Normal 98-107 [facility] Comment on above: Performed By: #### B MP ####[facility] [address] [place] [id number] Samuel CO2 [Moles/Vol] 31.3 mmol/L Normal 21.0-32.0 [facility] Comment on above: Performed By: #### B MP ####[facility] [address] [place] [phone] Samuel Creatinine [Mass/Vol] 0.95 mg/dL Normal 0.70-1.30 [facility] Comment on above: Performed By: #### B MP ####[facility] [address] [place] [address]Dr. Miladys Samuel EGFR-AF MONTENEGRIN >60 Normal >=60 [facility] Comment on above: Performed By: #### B MP ####[facility] [address] [place] [id number]. Miladys Samuel EGFR-NON AF MONTENEGRIN >60 Normal >=60 [facility] Comment on above: Performed By: #### B MP ####[facility] [address] [place] [id number]. Miladys Samuel Glucose [Mass/Vol] 140 mg/dL Critically high 74-106 [facility] Comment on above: Performed By: #### B MP ####[facility] [address] [place] [address]Dr. Miladys Samuel Potassium [Moles/Vol] 4.3 mmol/L Normal 3.5-5.1 [facility] Comment on above: Performed By: #### B MP ####[facility] [address] [place] [phone]. Miladys Samuel Sodium [Moles/Vol] 139 mmol/L Normal 136-145 [facility] Comment on above: Performed By: #### B MP ####[facility] [address] [place] [phone]. Miladys Samuel Urea nitrogen [Mass/Vol] 12.0 mg/dL Normal 7.0-18.0 [facility] Comment on above: Performed By: #### B MP ####[facility] [address] [place] [address]Dr. Miladys Samuel Urea nitrogen/Creatinine [Mass ratio] 12.6 mg/mg Normal [facility] Comment on above: Performed By: #### B MP ####[facility] [address] [place] [address]Dr. Miladys Samuel URINE MICROSCOPIC ONLYon BACTERIA TRACE Abnormal NONE SEEN [facility] Comment on above: Performed By: #### E USAMA UMICRO ####[facility] [address] [place], [place] [address]Dr. Miladys Samuel Bacteria identified Cx Nom (U) NOT INDICATED Normal [facility] Comment on above: Performed By: #### SAMUEL RODRIGUEZRO ####[facility] [address] [place] [address]Dr. Miladys Samuel CAST NONE SEEN Normal NONE SEEN [facility] Comment on above: Performed By: #### SAMUEL RODRIGUEZRO ####[facility] [address] [place], [place] [address]Dr. Miladys Samuel Crystals LM Nom (Urine sed) NONE SEEN Normal NONE SEEN [facility] Comment on above: Performed By: #### SAMUEL RODRIGUEZRO ####[facility] [address] [place], [place] [address]Dr. Miladys Samuel Epithelial cells LM Ql (Urine sed) RARE Normal NONE SEEN /RARE [facility] Comment on above: Performed By: #### SAMUEL RODRIGUEZRO ####[facility] [address] [place], [place] [address]Dr. Miladys Samuel MUCOUS NONE SEEN Normal NONE SEEN [facility] Comment on above: Performed By: #### SAMUEL RODRIGUEZRO ####[facility] [address] [place], [place] [address]Dr. Miladys Samuel RBC 2-5 Abnormal 0-2 [facility] Comment on above: Performed By: #### GUIDO RODRIGUEZ ####[facility] [address] [place], [place] [address]Dr. Miladys Samuel WBC 0-2 Abnormal NONE SEEN [facility] Comment on above: Performed By: #### SAMUEL RODRIGUEZRO ####[facility] [address] [place], [place] [address]Dr. Miladys Samuel XR KUB 1 VIEWon 11-03-2022 [...] MARY RODRIGUEZ Date: 2022-11-02 22:41 Normal [facility] CBC AUTO DIFFon 11-02-2022 BASO # 0.0 103/ul Normal 0.0-0.1 [facility] Comment on above: Performed By: #### C VDTBH #### [facility] [address] [place] [address] Dr. Miladys Samuel Basophils/100 WBC (Bld) 0.3 % Normal 0.2-2.0 [facility] Comment on above: Performed By: #### C VDTBH #### [facility] [address] [place] [address] Dr. Miladys Samuel EO # 0.1 103/ul Normal 0.0-0.7 [facility] Comment on above: Performed By: #### C VDTBH #### [facility] [address] [place] [address] Dr. Miladys Samuel Eosinophils/100 WBC (Bld) 1.8 % Normal 0.9-7.0 [facility] Comment on above: Performed By: #### C VDTBH #### [facility] [address] [place] [address] Dr. Miladys Samuel Erythrocyte distribution width (RBC) [Ratio] 14.0 % Normal 11.0-15.0 [facility] Comment on above: Performed By: #### C VDTBH #### [facility] [address] [place] [address] Dr. Miladys Samuel Hematocrit (Bld) [Volume fraction] 44.1 % Normal 42.0-54.0 [facility] Comment on above: Performed By: #### C VDTBH #### [facility] [address] [place] [address] Dr. Miladys Samuel Hemoglobin (Bld) [Mass/Vol] 14.6 g/dL Normal 14.0-18.0 [facility] Comment on above: Performed By: #### C VDTBH #### [facility] [address] [place] [address] Dr. Miladys Samuel IG # 0.02 10e3/ul Normal 0.00-0.03 [facility] Comment on above: Performed By: #### C VDTBH #### [facility] [address] [place] [address] Dr. Miladys Samuel IG % 0.3 % Normal 0.0-0.5 [facility] Comment on above: Performed By: #### C VDTBH #### [facility] [address] [place] [address] Dr. Miladys Samuel LYMPH # 1.2 103/ul Normal 1.2-3.8 [facility] Comment on above: Performed By: #### C VDTBH #### [facility] [address] [place] [address] Dr. Miladys Samuel Lymphocytes/100 WBC (Bld) 16.1 % Critically low 20.5-60.0 [facility] Comment on above: Performed By: #### C VDTBH #### [facility] [address] [place] [address] Dr. Miladys Samuel MANUAL DIFF REQ NO Normal [facility] Comment on above: Performed By: #### C VDTBH #### [facility] [address] [place] [address] Dr. Miladys Samuel MCH (RBC) [Entitic mass] 27.3 pg Normal 25.9-34.0 [facility] Comment on above: Performed By: #### C VDTBH #### [facility] [address] [place] [address] Dr. Miladys Samuel MCHC (RBC) [Mass/Vol] 33.1 g/dL Normal 29.9-35.2 [facility] Comment on above: Performed By: #### C VDTBH #### [facility] [address] [place] [address] Dr. Miladys Samuel MCV (RBC) [Entitic vol] 82.4 fL Normal 80.0-94.0 [facility] Comment on above: Performed By: #### C VDTBH #### [facility] [address] [place] [address] Dr. Miladys Samuel MONO # 0.4 103/ul Normal 0.3-0.8 [facility] Comment on above: Performed By: #### C VDTBH #### [facility] [address] [place] [address] Dr. Miladys Samuel Monocytes/100 WBC (Bld) 5.3 % Normal 1.7-12.0 [facility] Comment on above: Performed By: #### C VDTBH #### [facility] [address] [place] [address] Dr. Miladys Samuel NEUT # 5.8 103/ul Normal 1.4-6.5 [facility] Comment on above: Performed By: #### C VDTBH #### [facility] [address] [place] [address] Dr. Miladys Samuel Neutrophils/100 WBC (Bld) 76.2 % Critically high 43.0-75.0 [facility] Comment on above: Performed By: #### C VDTBH #### [facility] [address] [place] [address] Dr. Miladys Samuel Platelet mean volume (Bld) [Entitic vol] 10.0 fL Normal 9.5-13.5 [facility] Comment on above: Performed By: #### C VDTBH #### [facility] [address] [place] [address] Dr. Miladys Samuel PLT 160 103/ul Normal 150-450 [facility] Comment on above: Performed By: #### C VDTBH #### [facility] [address] [place] [address] Dr. Miladys Samuel RBC 5.35 106/ul Normal 4.70-6.10 [facility] Comment on above: Performed By: #### C VDTBH #### [facility] [address] [place] [address] Dr. Miladys Samuel WBC 7.6 103/ul Normal 4.0-11.0 [facility] Comment on above: Performed By: #### C VDTBH #### [facility] [address] [address] [address] ABD/PELV W CONon [...] RYLAN YADAV Date: 2022-11-02 19:32 Normal [facility] Covid-19 PCR (CVDTBH)on 10-11 SARS-CoV-2 (COVID-19) RNA FELY+probe Ql (Unsp spec) Not detected Normal NOT DETECTED [facility] Comment on above: Result Comment: [...] for this test is supported by the [place] and [employer] Service's declaration that [...] used). Performed By: #### C VDTBH #### [facility] [address] [place] [address] Dr. Miladys Samuel LACTATE/LACTIC ACIDon 2022 Lactate [Moles/Vol] 3.1 mmol/L Critically high 0.4-1.9 [facility] Comment on above: Performed By: #### L ACT ####[facility] [address] [place] [address]Dr. Miladys Samuel Lactate [Moles/Vol] 3.0 mmol/L Critically high 0.4-1.9 [facility] Comment on above: Performed By: #### L ACT #### [facility] [address] [place] [address] Dr. Miladys Samuel LIPASEon 11-02-2022 Lipase [Catalytic activity/Vol] 573.0 U/L Critically high 73.0-393.0 [facility] Comment on above: Performed By: #### A MY #### [facility] [address] [place] [address] Dr. Miladys Samuel PROF 14(COMP METB)on 023 Albumin [Mass/Vol] 4.2 g/dL Normal 3.4-5.0 [facility] Comment on above: Performed By: #### A MY #### [facility] [address] [place] [address] Dr. Miladys Samuel Albumin/Globulin [Mass ratio] 1.3 {ratio} Normal [facility] Comment on above: Performed By: #### A MY #### [facility] [address] [place] [address] Dr. Miladys Samuel ALP [Catalytic activity/Vol] 65 U/L Normal 46-116 [facility] Comment on above: Performed By: #### A MY #### [facility] [address] [place] [address] Dr. Miladys Samuel ALT [Catalytic activity/Vol] 37 U/L Normal 16-63 [facility] Comment on above: Performed By: #### A MY #### [facility] [address] [place] [address] Dr. Miladys Samuel Anion gap [Moles/Vol] 12.6 mmol/L Normal [facility] Comment on above: Performed By: #### A MY #### [facility] [address] [place] [address] Dr. Miladys Samuel AST [Catalytic activity/Vol] 45 U/L Critically high 15-37 [facility] Comment on above: Performed By: #### A MY #### [facility] [address] [place] [address] Dr. Miladys Samuel Bilirubin [Mass/Vol] 0.5 mg/dL Normal 0.2-1.0 [facility] Comment on above: Performed By: #### A MY #### [facility] [address] [place] [address] Dr. Miladys Samuel Calcium [Mass/Vol] 9.5 mg/dL Normal 8.5-10.1 [facility] Comment on above: Performed By: #### A MY #### [facility] [address] [place] [address] Dr. Miladys Samuel Chloride [Moles/Vol] 98 mmol/L Normal 98-107 [facility] Comment on above: Performed By: #### A MY #### [facility] [address] [place] [address] Dr. Miladys Samuel CO2 [Moles/Vol] 29.9 mmol/L Normal 21.0-32.0 [facility] Comment on above: Performed By: #### A MY #### [facility] [address] [place] [address] Dr. Miladys Samuel Creatinine [Mass/Vol] 0.97 mg/dL Normal 0.70-1.30 [facility] Comment on above: Performed By: #### A MY #### [facility] [address] [place] [address] Dr. Miladys Samuel EGFR-AF MONTENEGRIN >60 Normal >=60 [facility] Comment on above: Performed By: #### A MY #### [facility] [address] [place] [address] Dr. Miladys Samuel EGFR-NON AF MONTENEGRIN >60 Normal >=60 [facility] Comment on above: Performed By: #### A MY #### [facility] [address] [place] [address] Dr. Miladys Samuel Globulin (S) [Mass/Vol] 3.2 g/dL Normal [facility] Comment on above: Performed By: #### A MY #### [facility] [address] [place] [address] Dr. Miladys Samuel Glucose [Mass/Vol] 154 mg/dL Critically high 74-106 [facility] Comment on above: Performed By: #### A MY #### [facility] [address] [place] [address] Dr. Miladys Samuel Potassium [Moles/Vol] 4.5 mmol/L Normal 3.5-5.1 [facility] Comment on above: Performed By: #### A MY #### [facility] [address] [place] [address] Dr. Miladys Samuel Protein [Mass/Vol] 7.4 g/dL Normal 6.4-8.2 [facility] Comment on above: Performed By: #### A MY #### [facility] [address] [address] [address] Miladys Samuel Sodium [Moles/Vol] 136 mmol/L Normal 136-145 [facility] Comment on above: Performed By: #### A MY #### [facility] [address] [address] [address] Miladys Samuel Urea nitrogen [Mass/Vol] 7.0 mg/dL Normal 7.0-18.0 [facility] Comment on above: Performed By: #### A MY #### [facility] [address] [address] [address] Miladys Samuel Urea nitrogen/Creatinine [Mass ratio] 7.2 mg/mg Normal [facility] Comment on above: Performed By: #### A MY #### [facility] [address] [address] [address] Miladys Samuel PROTIMEon 11-02-2022 INR Coag (PPP) [Relative time] 1.02 {INR} Normal [facility] Comment on above: Performed By: #### P TT, PT ####[facility] [address] [place], [place] [address]Dr. Miladys Samuel INR GUIDELINES SEE BELOW Normal [facility] Comment on above: Result Comment: BRITTA RED INR: 2.0 - 3.0 CONDITIONS NOT LISTED BELOW 2.5 - 3.5 FOR PROSTHETIC HEART VALVE REPLACEMENT 2.5 - 3.5 RECURRENT THROMBOSIS Performed By: #### P TT, PT ####[facility] [address] [place], [place] [address]DrElinor Samuel PT Coag (PPP) [Time] 10.8 s Normal 9.0-11.6 [facility] Comment on above: Performed By: #### P TT, PT ####[facility] [address] [place], [place] [address]DrElinor Samuel PTTon 11-02-2022 aPTT Coag (Bld) [Time] 24.6 s Normal 22.3-36.2 [facility] Comment on above: Performed By: #### P TT, PT ####[facility] [address] [place], [place] [address]HbElinor Samuel XR KUB 1 VIEWon 11-02-2022 XR KUB 1 VIEW EXAM: XR KUB 1 VIEW HISTORY: Enteric tube placement COMPARISON: Abdomen and pelvic CT earlier in the day TECHNIQUE: Single view FINDINGS: IMPRESSION: Bowel gas pattern no gross free peritoneal air. Contrast within the bladder, renal collecting system and stomach. No visualized enteric tube. Electronically authenticated by: MARY RODRIGUEZ Date: 2022-11-02 21:33 Normal [facility] 30on 08-20-2022 30 The patient is Moder ately Stable - Low risk of patient condition declining or worsening The patient's goals for the shift include comfort The clinical goals for the shift include comfort Over the shift, the patient did not make progress toward the following goals. Barriers to progression include pain. Recommendations to address these barriers include goo pain relief. Normal [facility] BASIC METABOLIC PANELon 08-09 Anion gap [Moles/Vol] 3 mmol/L Low 7-20 [facility] Comment on above: Performed By: #### L [id number] #### [facility] ([facility]) [address] [place] [address] Calcium [Mass/Vol] 8.0 mg/dL Low 8.6-10.3 [facility] Comment on above: Performed By: #### L [id number] #### [facility] ([facility] [address] [place] [address] Chloride [Moles/Vol] 101 mmol/L Normal 98-107 [facility] Comment on above: Performed By: #### L [id number] #### [facility] ([facility]) [address] [place] [address] CO2 [Moles/Vol] 33 mmol/L High 21-31 [facility] Comment on above: Performed By: #### L [id number] #### [facility] ([facility]) [address] [place] [address] Creatinine [Mass/Vol] 0.83 mg/dL Normal 0.70-1.30 [facility] Comment on above: Performed By: #### L [id number] #### [facility] ([facility]) [address] [place] [address] GLOMERULAR FILTRATION RATE ML/MIN/1.73 SQ M.PREDICTED 91.7 mL/min/1.73m*2 Normal >60.0 [facility] Comment on above: Result Comment: [facility]???s estimated glomerular filtration rate (eGFR) will no [...] group of individuals. Performed By: #### L [id number] #### [facility] ([facility]) [address] [place] [address] Glucose [Mass/Vol] 163 mg/dL High 70-100 [facility] Comment on above: Performed By: #### L [id number] #### [facility] ([facility]) [address] [place] [address] Potassium [Moles/Vol] 3.9 mmol/L Normal 3.5-5.1 [facility] Comment on above: Performed By: #### L [id number] #### [facility] ([facility]) [address] [place] [address] Sodium [Moles/Vol] 137 mmol/L Normal 136-145 [facility] Comment on above: Performed By: #### L [id number] #### [facility] ([facility]) [address] [place] [address] Urea nitrogen [Mass/Vol] 14 mg/dL Normal 7-25 [facility] Comment on above: Performed By: #### L [id number] #### [facility] ([facility]) [address] [place] [address] UREA NITROGEN/CREATININE (MASS RATIO) IN SER/PLAS 16.87 Normal [facility] Comment on above: Performed By: #### L [id number] #### [facility] ([facility]) [address] [place] [address] CBC WITH AUTO DIFFERENTIALon 08-20-2022 ERYTHROCYTE DISTRIBUTION WIDTH (RATIO) STANDARD DEVIATION 43.4 Normal [facility] Comment on above: Performed By: #### L [id number] #### [facility] ([facility]) [address] [place] [address] Erythrocyte distribution width (RBC) [Ratio] 13.6 % Normal 11.5-15.0 [facility] Comment on above: Performed By: #### L [id number] #### [facility] ([facility]) [address] [place] [address] ERYTHROCYTE MEAN CORPUSCULAR HEMOGLOBIN CONCENTRATION (G/DL) BY AUTOMATED 32.5 g/dL Normal 32.0-35.0 [facility] Comment on above: Performed By: #### L [id number] #### [facility] ([facility]) [address] [place] [address] Hematocrit (Bld) [Volume fraction] 36.0 % Low 39.0-55.0 [facility] Comment on above: Performed By: #### L [id number] #### [facility] ([facility]) [address] [place] [place] [address] Hemoglobin (Bld) [Mass/Vol] 11.7 g/dL Low 13.0-17.0 [facility] Comment on above: Performed By: #### L [id number] #### [facility] ([facility]) [address] [place] [address] MCH (RBC) [Entitic mass] 28.3 pg Normal 27.0-33.0 [facility] Comment on above: Performed By: #### L [id number] #### [facility] [address] [place] [address] MCV (RBC) [Entitic vol] 87.2 fL Normal 82.0-98.0 [facility] Comment on above: Performed By: #### L [id number] #### [facility] ([facility]) [address] [place] [address] NRBC (PER 100 WBCS) BY AUTOMATED COUNT 0.0 % Normal 0.0-0.0 [facility] Comment on above: Performed By: #### L [id number] #### [facility] ([facility]) [address] [place] [address] PLATELETS (10*3/UL) IN BLOOD AUTOMATED COUNT 98 10*3/uL Low 150-400 [facility] Comment on above: Performed By: #### L [id number] #### [facility] ([facility]) [address] [place] [address] RBC (Bld) [#/Vol] 4.13 10*6/uL Low 4.20-5.70 [facility] Comment on above: Performed By: #### L [id number] #### [facility] ([facility]) [address] [place] [address] WBC (Bld) [#/Vol] 3.69 10*3/uL Low 4.00-10.60 [facility] Comment on above: Performed By: #### L [id number] #### [facility] ([facility]) [address] [place] [address] DSon 08-20-2022 DS ------ -- Attestation signed by Lazaro Pickard MD at 09/03/2022 6:07 PM Attending Physician Statement I have discussed the case, including pertinent history and exam findings with Dr. Covarrubias, rn surgical pcu and have personally seen the patient. I agree with the assessment, plan and orders as documented. [phone] pager [phone] phone -- [facility] General Surgery DISCHARGE SUMMARY Admission Admitted 08/18/2022 for bowel obstruction Discharge Diagnosis SBO (small bowel obstruction) ([facility]) Discharge Disposition Home or Self Care Discharge [...] DM, HTN, HLD, pancreatitis who presents to [facility] as a transfer from [facility] for evaluation of SBO on 08/18. CT [...] 0.01 Platel (more content not included)... Normal [facility] MAGNESIUMon 08-20-2022 Magnesium [Mass/Vol] 1.9 mg/dL Normal 1.9-2.7 [facility] Comment on above: Performed By: #### L [id number] #### [facility] ([facility]) [address] [place] [address] MANUAL DIFFERENTIALon 2021 BASOPHILS (10*3/UL) IN BLOOD BY CALCULATION 0.01 10*3/uL Normal [facility] Comment on above: Performed By: #### L [id number] #### [facility] (BEAKER) [address] [place] [address] BASOPHILS/100 LEUKOCYTES IN BLOOD BY AUTOMATED COUNT 0.3 % Normal 0.0-1.0 [facility] Comment on above: Performed By: #### L [id number] #### [facility] ([facility]) [address] [place] [address] EOSINOPHILS (10*3/UL) IN BLOOD BY CALCULATION 0.13 10*3/uL Normal [facility] Comment on above: Performed By: #### L [id number] #### [facility] ([facility]) [address] [place] [address] EOSINOPHILS/100 LEUKOCYTES IN BLOOD BY AUTOMATED COUNT 3.5 % Normal 0.0-6.0 [facility] Comment on above: Performed By: #### L [id number] #### [facility] ([facility]) [address] [place] [address] IMMATURE GRANULOCYTES (10*3/UL) IN BLOOD BY CALCULATION 0.01 Normal [facility] Comment on above: Performed By: #### L [id number] #### [facility] ([facility]) [address] [place] [address] IMMATURE GRANULOCYTES/100 LEUKOCYTES IN BLOOD BY AUTOMATED COUNT 0.3 % Normal 0.0-1.0 [facility] Comment on above: Performed By: #### L [id number] #### [facility] ([facility]) [address] [place] [address] LYMPHOCYTES (10*3/UL) IN BLOOD BY CALCULATION 0.41 10*3/uL Low 1.20-4.00 [facility] Comment on above: Performed By: #### L [id number] #### [facility] ([facility]) [address] [place] [address] LYMPHOCYTES/100 LEUKOCYTES IN BLOOD BY AUTOMATED COUNT 11.1 % Low 20.0-45.0 [facility] Comment on above: Performed By: #### L [id number] #### [facility] ([facility]) [address] [place] [address] MONOCYTES (10*3/UL) IN BLOOD BY CALCUATION 0.44 10*3/uL Normal [facility] Comment on above: Performed By: #### L [id number] #### [facility] ([facility]) [address] [place] [address] MONOCYTES/100 LEUKOCYTES IN BLOOD BY AUTOMATED COUNT 11.9 % Normal 5.0-12.0 [facility] Comment on above: Performed By: #### L [id number] #### [facility] ([facility]) [address] [place] [address] NEUTROPHILS (10*3/UL) IN BLOOD BY CALCULATION 2.7 10*3/uL Normal 1.6-7.6 [facility] Comment on above: Performed By: #### L [id number] #### [facility] ([facility]) [address] [place] [address] NEUTROPHILS/100 LEUKOCYTES IN BLOOD BY AUTOMATED COUNT 72.9 % High 40.0-72.0 [facility] Comment on above: Performed By: #### L [id number] #### [facility] ([facility]) [address] [place] [address] PHOSPHORUSon 08-20-2022 Magnesium [Mass/Vol] 1.8 mg/dL Low 2.5-5.0 [facility] Comment on above: Performed By: #### L [id number] #### [facility] ([facility]) [address] [place] [address] 30on 08-19-2022 30 The patient is Moder [...] goals for the shift include comfort Normal [facility] 30 Problem: Pain - Adul t Goal: [...] barriers include monitor I&O, manage nausea. Normal [facility] BASIC METABOLIC PANELon 08-09 Anion gap [Moles/Vol] 8 mmol/L Normal 7-20 [facility] Comment on above: Performed By: #### L [id number] ####[facility] ([facility])[address] [facility] [address] Calcium [Mass/Vol] 8.9 mg/dL Normal 8.6-10.3 [facility] Comment on above: Performed By: #### L [id number] ####[facility] ([facility])[address] [place] [address] Chloride [Moles/Vol] 99 mmol/L Normal 98-107 [facility] Comment on above: Performed By: #### L [id number] ####[facility] ([facility])[address] [address] CO2 [Moles/Vol] 31 mmol/L Normal 21-31 [facility] Comment on above: Performed By: #### L [id number] ####[facility] [place] [address] Creatinine [Mass/Vol] 0.91 mg/dL Normal 0.70-1.30 [facility] Comment on above: Performed By: #### L [id number] ####[facility] ([facility])[address] [place] [address] GLOMERULAR FILTRATION RATE ML/MIN/1.73 SQ M.PREDICTED 87.5 mL/min/1.73m*2 Normal >60.0 [facility] Comment on above: Result Comment: [facility]???s estimated glomerular filtration rate (eGFR) will no [...] individuals. Performed By: #### L [id number] ####[facility] ([facility])[address] [place] [address] Glucose [Mass/Vol] 139 mg/dL High 70-100 [facility] Comment on above: Performed By: #### L [id number] ####[facility] ([facility])[address] [place] [address] Potassium [Moles/Vol] 4.4 mmol/L Normal 3.5-5.1 [facility] Comment on above: Performed By: #### L [id number] ####[facility] (BEAKER)[address] [place] [address] Sodium [Moles/Vol] 138 mmol/L Normal 136-145 [facility] Comment on above: Performed By: #### L [id number] ####[facility] [place] [address] Urea nitrogen [Mass/Vol] 16 mg/dL Normal 7-25 [facility] Comment on above: Performed By: #### L [id number] ####[facility] [place] [address] UREA NITROGEN/CREATININE (MASS RATIO) IN SER/PLAS 17.58 Normal [facility] Comment on above: Performed By: #### L [id number] ####[facility] ([facility])[address] [place] [address] CBC WITH AUTO DIFFERENTIALon 08-19-2022 Basophils (Bld) [#/Vol] 0.01 10*3/uL Normal 0.00-0.20 [facility] Comment on above: Performed By: #### L [id number] ####[facility] [place] [address] Basophils/100 WBC (Bld) 0.2 % Normal 0.0-1.0 [facility] Comment on above: Performed By: #### L [id number] ####[facility] [place] [address] Eosinophils (Bld) [#/Vol] 0.01 10*3/uL Normal 0.00-0.50 [facility] Comment on above: Performed By: #### L [id number] ####[facility] [place] [address] Eosinophils/100 WBC (Bld) 0.2 % Normal 0.0-6.0 [facility] Comment on above: Performed By: #### L [id number] ####[facility] [place] [address] ERYTHROCYTE DISTRIBUTION WIDTH (RATIO) STANDARD DEVIATION 43.2 Normal [facility] Comment on above: Performed By: #### L [id number] ####[facility] [place] [address] Erythrocyte distribution width (RBC) [Ratio] 14.0 % Normal 11.5-15.0 [facility] Comment on above: Performed By: #### L [id number] ####[facility] ([facility])[address] [place] [address] ERYTHROCYTE MEAN CORPUSCULAR HEMOGLOBIN CONCENTRATION (G/DL) BY AUTOMATED 33.5 g/dL Normal 32.0-35.0 [facility] Comment on above: Performed By: #### L [id number] ####[facility] ([facility])[address] [place] [address] Hematocrit (Bld) [Volume fraction] 43.3 % Normal 39.0-55.0 [facility] Comment on above: Performed By: #### L [id number] ####[facility] ([facility])[address] [place] [address] Hemoglobin (Bld) [Mass/Vol] 14.5 g/dL Normal 13.0-17.0 [facility] Comment on above: Performed By: #### L [id number] ####[facility] ([facility])[address] [place] [address] Immature granulocytes (Bld) [#/Vol] 0.02 10*3/uL Normal 0.00-0.20 [facility] Comment on above: Performed By: #### L [id number] ####[facility] ([facility] [place] [address] Immature granulocytes/100 WBC (Bld) 0.3 % Normal 0.0-1.0 [facility] Comment on above: Performed By: #### L [id number] ####[facility] (BEAKER)[address] [place] [address] Lymphocytes (Bld) [#/Vol] 0.40 10*3/uL Low 1.20-4.00 [facility] Comment on above: Performed By: #### L [id number] ####[facility] ([facility])[address] [place] [address] Lymphocytes/100 WBC (Bld) 6.7 % Low 20.0-45.0 [facility] Comment on above: Performed By: #### L [id number] ####[facility] (BEAKER)[address] [place] [address] MCH (RBC) [Entitic mass] 28.8 pg Normal 27.0-33.0 [facility] Comment on above: Performed By: #### L [id number] ####[facility] (BEAKER)[address] [place] [address] MCV (RBC) [Entitic vol] 85.9 fL Normal 82.0-98.0 [facility] Comment on above: Performed By: #### L [id number] ####[facility] (BEAKER)[address] [place] [address] Monocytes (Bld) [#/Vol] 0.46 10*3/uL Normal 0.10-1.00 [facility] Comment on above: Performed By: #### L [id number] ####[facility] (BEAKER)[address] [place] [address] Monocytes/100 WBC (Bld) 7.7 % Normal 5.0-12.0 [facility] Comment on above: Performed By: #### L [id number] ####[facility] (BEAKER)[address] [place] [address] Neutrophils (Bld) [#/Vol] 5.05 10*3/uL Normal 1.60-7.60 [facility] Comment on above: Performed By: #### L [id number] ####[facility] (BEAKER)[address] [place] [address] Neutrophils/100 WBC (Bld) 84.9 % High 40.0-72.0 [facility] Comment on above: Performed By: #### L [id number] ####[facility] (BEAKER)[address] [place] [address] NRBC (PER 100 WBCS) BY AUTOMATED COUNT 0.0 % Normal 0.0-0.0 [facility] Comment on above: Performed By: #### L [id number] ####[facility] ([facility])[address] [place] [address] PLATELETS (10*3/UL) IN BLOOD AUTOMATED COUNT 134 10*3/uL Low 150-400 [facility] Comment on above: Performed By: #### L [id number] ####[facility] ([facility])[address] [place] [address] RBC (Bld) [#/Vol] 5.04 10*6/uL Normal 4.20-5.70 [facility] Comment on above: Performed By: #### L [id number] ####[facility] ([facility])[address] [place] [address] WBC (Bld) [#/Vol] 5.95 10*3/uL Normal 4.00-10.60 [facility] Comment on above: Performed By: #### L [id number] ####[facility] ([facility])[address] [place] [address] MAGNESIUMon 08-19-2022 Magnesium [Mass/Vol] 1.6 mg/dL Low 1.9-2.7 [facility] Comment on above: Performed By: #### L [id number] #### [facility] ([facility]) [address] [place] [address] PHOSPHORUSon 08-19-2022 Magnesium [Mass/Vol] 4.7 mg/dL Normal 2.5-5.0 [facility] Comment on above: Performed By: #### L [id number] #### [facility] ([facility]) [address] [place] [address] CBC AUTO DIFFon 08-18-2022 BASO # 0.0 103/ul Normal 0.0-0.1 [facility] Comment on above: Performed By: #### C VDTB #### [facility] [address] [place] [address] Dr. Miladys Samuel Basophils/100 WBC (Bld) 0.2 % Normal 0.2-2.0 [facility] Comment on above: Performed By: #### C VDTBH #### [facility] [address] [place] [address] Dr. Miladys Samuel EO # 0.1 103/ul Normal 0.0-0.7 [facility] Comment on above: Performed By: #### C VDTBH #### [facility] [address] [place] [address] Dr. Miladys Samuel Eosinophils/100 WBC (Bld) 1.2 % Normal 0.9-7.0 [facility] Comment on above: Performed By: #### C VDTBH #### [facility] [address] [place] [address] Dr. Miladys Samuel Erythrocyte distribution width (RBC) [Ratio] 13.5 % Normal 11.0-15.0 [facility] Comment on above: Performed By: #### C VDTBH #### [facility] [address] [place] [address] Dr. Miladys Samuel Hematocrit (Bld) [Volume fraction] 46.0 % Normal 42.0-54.0 [facility] Comment on above: Performed By: #### C VDTBH #### [facility] [address] [place] [address] Dr. Miladys Samuel Hemoglobin (Bld) [Mass/Vol] 15.3 g/dL Normal 14.0-18.0 [facility] Comment on above: Performed By: #### C VDTBH #### [facility] [address] [place] [address] Dr. Miladys Samuel IG # 0.02 10e3/ul Normal 0.00-0.03 [facility] Comment on above: Performed By: #### C VDTBH #### [facility] [address] [place] [address] Dr. Miladys Samuel IG % 0.2 % Normal 0.0-0.5 [facility] Comment on above: Performed By: #### C VDTBH #### [facility] [address] [place] [address] [address] Miladys Samuel LYMPH # 0.7 103/ul Critically low 1.2-3.8 [facility] Comment on above: Performed By: #### C VDTBH #### [facility] [address] [address] [address] Miladys Samuel Lymphocytes/100 WBC (Bld) 8.0 % Critically low 20.5-60.0 [facility] Comment on above: Performed By: #### C VDTBH #### [facility] [address] [address] [address] Miladys Samuel MANUAL DIFF REQ NO Normal [facility] Comment on above: Performed By: #### C VDTBH #### [facility] [address] [address] [address] Miladys Samuel MCH (RBC) [Entitic mass] 27.9 pg Normal 25.9-34.0 [facility] Comment on above: Performed By: #### C VDTBH #### [facility] [address] [address] [address] Miladys Samuel MCHC (RBC) [Mass/Vol] 33.3 g/dL Normal 29.9-35.2 [facility] Comment on above: Performed By: #### C VDTBH #### [facility] [address] [address] [address] Miladys Samuel MCV (RBC) [Entitic vol] 83.9 fL Normal 80.0-94.0 [facility] Comment on above: Performed By: #### C VDTBH #### [facility] [address] [address] [address] Miladys Samuel MONO # 0.5 103/ul Normal 0.3-0.8 [facility] Comment on above: Performed By: #### C VDTBH #### [facility] [address] [address] [address] Miladys Samuel Monocytes/100 WBC (Bld) 5.5 % Normal 1.7-12.0 [facility] Comment on above: Performed By: #### C VDTBH #### [facility] [address] [place] [address] [address] Miladys Samuel NEUT # 7.1 103/ul Critically high 1.4-6.5 [facility] Comment on above: Performed By: #### C VDTBH #### [facility] [address] [place] [address] Dr. Miladys Samuel Neutrophils/100 WBC (Bld) 84.9 % Critically high 43.0-75.0 [facility] Comment on above: Performed By: #### C VDTBH #### [facility] [address] [place] [address] Dr. Miladys Samuel Platelet mean volume (Bld) [Entitic vol] 10.1 fL Normal 9.5-13.5 [facility] Comment on above: Performed By: #### C VDTBH #### [facility] [address] [place] [address] Dr. Miladys Samuel PLT 154 103/ul Normal 150-450 [facility] Comment on above: Performed By: #### C VDTBH #### [facility] [address] [place] [address] Dr. Miladys Samuel RBC 5.48 106/ul Normal 4.70-6.10 [facility] Comment on above: Performed By: #### C VDTBH #### [facility] [address] [place] [address] Dr. Miladys Samuel WBC 8.4 103/ul Normal 4.0-11.0 [facility] Comment on above: Performed By: #### C VDTBH #### [facility] [address] [place] [address] ABD/PELV W CONon [...] MARY HOGAN Date: 2022-08-18 12:02 Normal [facility] EDNURSon 08-18-2022 EDNURS Pt here from [place] for SBO. Pt has IV. Normal [facility] EDPROVon 08-18-2022 EDPROV [facility] [address] [facility] [address] EMERGENCY DEPARTMENT ENCOUNTER CHIEF COMPLAINT Chief Complaint Patient presents with Abdominal Pain GI Problem HISTORY OF PRESENT ILLNESS 67 y/o male with a h/o CAD s/p CABG, DM, HTN, HLD, pancreatitis presents to the ED as a transfer from [facility] for evaluation of SBO. Pt reports he [...] Sat Aug 18, 2022 1610 Sent by [facility] - SBO accepted by Dr. Pickard [...] surg who will evaluate the pt [JS] 6727 Surg reports they will be admitting the pt [JS] ED Course User Index [JS] JUAN MIGUEL Ramos [WS] Leo Allred MD Diagnoses as of 08/18/222021 SBO (small bowel obstruction) (CMS/[facility]) CONSULTS: General surgery PROCEDURES: NG tube placement per RN DIFFERENTIAL DIAGNOSIS / MDM / DISPOSITION / PLAN This patient is a 67-year-old male who presented to the emergency department as a transfer from outside hospital for small bowel obstruction. This patient was accepted in transfer by general surgeon Dr. Pickard. Labs and imag (more content not included)... Normal [facility] EDPROV HPI Chief Complaint Patient presents with Abdominal Pain GI Problem Patient [facility] for admission to general surgery for SBO. Pt accepted by Dr. Pickard [place] Pool Coma Scale Score: 15 Patient History History [...] Sat Aug 18, 2022 1610 Sent by [facility] - SBO accepted by Dr. Pickard for general surgery admission. [WS] [id number] Reviewed records sent with patient from outside [...] surg who will evaluate the pt [JS] 4187 Surg reports they will be admitting the pt [JS] ED Course User Index [JS] JUAN MIGUEL Ramos [WS] Leo Allred MD Diagnoses as of 08/20/22 0958 SBO (small bowel obstruction) ([facility]) MDM Attestion Leo Allred MD 08/20/22 0959 Normal [facility] HPon 08-18-2022 HP ------ -- Attestation signed by Lazaro Pcikard MD at 08/22/2022 1:27 PM Attending Physician Statement I have discussed the case, including pertinent history and exam findings with Dr. Covarrubias, rn surgical pcu and have personally seen the patient. I agree with the assessment, plan and orders as documented. [phone] pager [phone] phone -- [facility] General Surgery HISTORY & PHYSICAL Reason for Admission: SBO History of Present Illness: Elsa Espinoza is a 67 y.o. male w/ PMH of h/o CAD s/p CABG, DM, HTN, HLD, pancreatitis who presents to [facility] as a transfer from [facility] for evaluation of SBO. atient has a [...] 18, hei (more content not included)... Normal [facility] LACTIC ACID WITH 4 HOUR REFL EXon 08-18-2022 LACTATE (MMOL/L) IN SER/PLAS 1.0 mmol/L Normal 0.5-2.2 [facility] Comment on above: Performed By: #### L [id number] #### [facility] (BEAKER) [address] [place] [address] LIPASEon 08-18-2022 Lipase [Catalytic activity/Vol] 290.0 U/L Normal 73.0-393.0 [facility] Comment on above: Performed By: #### A MY #### [facility] [address] [address] [address] Miladys Samuel PROF 14(COMP METB)on 022 Albumin [Mass/Vol] 4.2 g/dL Normal 3.4-5.0 [facility] Comment on above: Performed By: #### C VDTBH #### [facility] [address] [address] [address] Miladys Samuel Albumin/Globulin [Mass ratio] 1.2 {ratio} Normal [facility] Comment on above: Performed By: #### C VDTBH #### [facility] [address] [address] [address] Miladys Samuel ALP [Catalytic activity/Vol] 82 U/L Normal 46-116 [facility] Comment on above: Performed By: #### C VDTBH #### [facility] [address] [address] [address] Miladys Samuel ALT [Catalytic activity/Vol] 75 U/L Critically high 16-63 [facility] Comment on above: Performed By: #### C VDTBH #### [facility] [address] [address] [address] Miladys Samuel Anion gap [Moles/Vol] 10.9 mmol/L Normal [facility] Comment on above: Performed By: #### C VDTBH #### [facility] [address] [address] [address] Miladys Samuel AST [Catalytic activity/Vol] 116 U/L Critically high 15-37 [facility] Comment on above: Performed By: #### C VDTBH #### [facility] [address] [address] [address] Miladys Samuel Bilirubin [Mass/Vol] 0.7 mg/dL Normal 0.2-1.0 [facility] Comment on above: Performed By: #### C VDTBH #### [facility] [address] [address] [address] Miladys Samuel Calcium [Mass/Vol] 9.5 mg/dL Normal 8.5-10.1 [facility] Comment on above: Performed By: #### C VDTBH #### [facility] [address] [address] [address] Miladys Samuel Chloride [Moles/Vol] 98 mmol/L Normal 98-107 [facility] Comment on above: Performed By: #### C VDTBH #### [facility] [address] [address] [address] Miladys Samuel CO2 [Moles/Vol] 31.4 mmol/L Normal 21.0-32.0 [facility] Comment on above: Performed By: #### C VDTBH #### [facility] [address] [place] [address] Dr. Miladys Samuel Creatinine [Mass/Vol] 1.04 mg/dL Normal 0.70-1.30 [facility] Comment on above: Performed By: #### C VDTBH #### [facility] [address] [address] [address] Miladys Samuel EGFR-AF MONTENEGRIN >60 Normal >=60 [facility] Comment on above: Performed By: #### C VDTBH #### [facility] [address] [place] [address] Dr. Miladys Samuel EGFR-NON AF MONTENEGRIN >60 Normal >=60 [facility] Comment on above: Performed By: #### C VDTBH #### [facility] [address] [place] [address] Dr. Miladys Samuel Globulin (S) [Mass/Vol] 3.5 g/dL Normal [facility] Comment on above: Performed By: #### C VDTBH #### [facility] [address] [place] [address] Dr. Miladys Samuel Glucose [Mass/Vol] 181 mg/dL Critically high 74-106 [facility] Comment on above: Performed By: #### C VDTBH #### [facility] [address] [place] [address] Dr. Miladys Samuel Potassium [Moles/Vol] 4.3 mmol/L Normal 3.5-5.1 [facility] Comment on above: Performed By: #### C VDTBH #### [facility] [address] [place] [address] Dr. Miladys Samuel Protein [Mass/Vol] 7.7 g/dL Normal 6.4-8.2 [facility] Comment on above: Performed By: #### C VDTBH #### [facility] [address] [place] [address] Dr. Miladys Samuel Sodium [Moles/Vol] 136 mmol/L Normal 136-145 [facility] Comment on above: Performed By: #### C VDTBH #### [facility] [address] [address] [address] Miladys Samuel Urea nitrogen [Mass/Vol] 15.0 mg/dL Normal 7.0-18.0 [facility] Comment on above: Performed By: #### C VDTBH #### [facility] [address] [place], [place] [address] Dr. Miladys Samuel Urea nitrogen/Creatinine [Mass ratio] 14.4 mg/mg Normal [facility] Comment on above: Performed By: #### C VDTBH #### [facility] [address] [place], [place] [address] Dr. Miladys Samuel XR Knee Complete Left*on [...] by Justo Vidal on 02/08/2022 1442 Normal [facility] Manager Clinical Applications Laboratory - Chemistry and C hemistry - challengeon 11-14-2021 Cholesterol [Mass/Vol] 118\S\118 below low threshold 140-200 [facility] 250 DO Work Phone: Comment on above: Chol less than 200 m g/dl low risk Chol 201-239 mg/dl borderline risk Chol 240 mg/dl and greater high risk Cholesterol in LDL [Mass/Vol] 65\S\65 Normal 0-100 [facility] 250 DO Work Phone: Comment on above: LDL ATP III CLASSIFI CATION LDL less than 100 mg/dL Optimal LDL 100-129 mg/dL Near or above optimal LDL 130-159 mg/dL Borderline high LDL 160-189 mg/dL High LDL greater than 189 mg/dL Very high Laboratory - Microbiology an d Antimicrobial susceptibilityon 11-14-2021 SARS-CoV-2 (COVID-19) RNA FELY+probe Ql (Unsp spec) [facility] 250 DO Work Phone: No Panel Informationon 11-14 39.3\S\39.3 above high threshold 25.1-36.5 -[facility] 250 DO Work Phone: Comment on above: PERFORMED BY:[facility] [phone] MEDICAL DIRECTORJORDANA THACKER M.D. 1.0\S\1.0 Normal -[facility] 250 DO Work Phone: Comment [...] valves: 3 - 4.5 11.5\S\11.5 Normal 9.0-12.9 [facility] 250 DO Work Phone: 0.0\S\0.0 Normal 0-0.5 [facility] 250 DO Work Phone: Comment on above: PERFORMED BY:[facility] [place], [place] [phone] MEDICAL DIRECTORJORDANA THACKER M.D. 0.2\S\0.2 Normal 0.0-0.45 [facility] [facility] 250 DO Work Phone: 0.4\S\0.4 Normal 0.0-0.8 [facility] 250 DO Work Phone: 0.7\S\0.7 below low threshold 1.00-4.8 -[facility] [facility] 250 DO Work Phone: 2.5\S\2.5 Normal 1.8-7.7 [facility] [facility] 250 DO Work Phone: 0.6\S\0.6 Normal . [facility] 250 DO Work Phone: [phone] 4.5\S\4.5 Normal . [facility] 250 DO Work Phone: [phone] 10.0\S\10.0 Normal . [facility] 250 DO Work Phone: [phone] 18.3\S\18.3 Normal . [facility] 250 DO Work Phone: [phone] 66.6\S\66.6 Normal . [facility] [facility] 250 DO Work Phone: [phone] 7.5\S\7.5 Normal 6.6-10.1 [facility] 250 DO Work Phone: [phone] 185\S\185 Normal 150-450 [facility] [facility] 250 DO Work Phone: [phone] 14.7\S\14.7 Normal 12.0-14.8 [facility] [facility] 250 DO Work Phone: [phone] 32.4\S\32.4 below low threshold 32.5-35.6 [facility] [facility] 250 DO Work Phone: [phone] 26.0\S\26.0 below low threshold 27.5-35.2 [facility] [facility] 250 DO Work Phone: [phone] 80.3\S\80.3 below low threshold 83.5-101 [facility] [facility] 250 DO Work Phone: [phone] 34.2\S\34.2 below low threshold 38.8-50.0 [facility] [facility] 250 DO Work Phone: [phone] 11.1\S\11.1 below low threshold 13.0-17.0 [facility] 250 DO Work Phone: [phone] 4.26\S\4.26 Normal 3.90-5.60 [facility] 250 DO Work Phone: [phone] 3.7\S\3.7 below low threshold 4.1-10.5 [facility] 250 DO Work Phone: [phone] 27.9\S\27.9 Normal 22.0-30.0 [facility] 250 DO Work Phone: [phone] 101\S\101 Normal 95-114 [facility] 250 DO Work Phone: [phone] 4.4\S\4.4 Normal 3.5-5.1 [facility] 250 DO Work Phone: [phone] 138\S\138 Normal 136-146 [facility] 250 DO Work Phone: [phone] 6\S\6 below low threshold 9-23 [facility] 250 DO Work Phone: [phone] > 60 Normal [facility] 250 DO Work Phone: [phone] Comment on above: GFR estimated refere nce range: According to KDOQI guidelines, <60 ml/min/1.73m2 is sufficient to diagnose a patient with chronic kidney disease. 0.99\S\0.99 Normal 0.64-1.27 [facility] 250 DO Work Phone: [phone] 3.3\S\3.3 Normal <5.0 [facility] 250 DO Work Phone: [phone] Comment on above: PERFORMED BY:[address] [address] [address] [place] [phone] MEDICAL DIRECTORJORDANA THACKER M.D. 17\S\17 Normal [facility] 250 DO Work Phone: [phone] 86\S\86 Normal 35-149 [facility] 250 DO Work Phone: [phone] Comment on above: TRIG ATP III CLASSIF ICATION TRIG less than 150 mg/dL Normal TRIG 150-199 mg/dL Borderline high TRIG 200-500 mg/dL High TRIG greater than 500 mg/dL Very high Standard traceable to the Center for Disease Conrtrol and Prevention (CDC) test method. 36\S\36 Normal 29-71 [facility] 250 DO Work Phone: Comment on above: HDL CHOL ATP-III CLA SSIFICATION Cardiovascular Risk HDL > or equal to 60 mg/dL LOW HDL < 40 mg/dL HIGH Negative Normal Negative [facility] 250 DO Work Phone: Comment on above: This is a duplicate Daphnie SARS Antigen (ESTELA) result to be used for statistical tracking purpose only.PERFORMED BY:[address] [address] [address] [place], [place] [phone] MEDICAL DIRECTORJORDANA THACKER M.D. CT ABDOMEN AND PELVIS W ORAL CONTRASTon 11-09-2021 CT ABDOMEN AND PELVIS W ORAL CONTRAST [facility] Department of Radiology [address] [place] [id number] Patient Name: ELSA ESPINOZA : 1955 Sex: M Age: Race: White Pt. Location: Patient Status: O Ordered Date: 11/07/2021 3:05:00 PM Completed Date: 11/09/2021 12:18 PM Requesting Provider: LAZARO PICKARD Attending Provider: LAZARO PICKARD Report Copy To: NIKUNJ MARI Signs & Symptoms: R10.31 Right lower quadrant pain I10 History: [place] needs to come early to drink Comments: [...] wall. Electronically signed: Cristal Fernandes. Transcribed by: [email or web address], User Resident: Electronically Signed by: CRISTAL FERNANDES @ 11/09/2021 01:[address] [facility] CARDIAC STRESS/REST INJE CTIONon 11-06-2021 [facility] CARDIAC STRESS/REST INJECTION Patient Name: ELSA ESPINOZA STUDY: MYOCARDIAL PERFUSION STRESS TEST WITH EXERCISE CONVERTED TO LEXISCAN Performing facility: [facility], [address] [place] [address], [address], [place], [place] [address] Provider: Ivanna Chavarria DO, [facility] PCP: Dr. MARI Supervising provider: Ivanna Graves MD, [facility] INDICATION: AORTIC STENOSIS; ATHEROSCLEROSIS OF CABG OF [place] HEART WITHOUT ANGINA PECTORIS; MERIDA; ESSENTIAL HTN; HYPERLIPIDEMIA. HISTORY: Gender: M; Age: 66 y/o ; Height: 180.34 cm; Weight: 82.8742881 kg. HIGH CHOLESTEROL; DIABETES; HTN; MILD ; FATIGE. Denies smoking. S/P PTCA CABG on 2001. COMPARISON: No comparison. 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 (414.05) (I25.810) 2001 CABG March 2017: PCI/PALMA to SVG- [id number] HONG-LAD patent Radial-dRCA patent 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 Normal [facility] Tobacco Screening.on 022 Fall risk assessment a) No falls within the last year -[facility] 250 DO Work Phone: Tobacco use status CPHS b) No -[facility] 250 DO Work Phone: Basic Metabolic Panelon 12- Anion gap [Moles/Vol] 17 mmol/L Normal - [facility] Manager Clinical Applications Comment on above: Result Comment: Effe ctive 09/14/2019 reference range changed. Performed By: #### L IPD, CBCAD, HEP, TSH, VITD, BMP #### [facility] [address] [place], [place] [phone] Calcium [Mass/Vol] 9.9 mg/dL Normal 8.6-10.2 [facility] Manager Clinical Applications Comment on above: Performed By: #### L IPD, CBCAD, HEP, TSH, VITD, BMP #### [facility] [address] [place], [place] [id number] Chloride [Moles/Vol] 101 mmol/L Normal 98-107 [facility] Manager Clinical Applications Comment on above: Performed By: #### L IPD, CBCAD, HEP, TSH, VITD, BMP #### [facility] [address] [place], [place] [id number] CO2 [Moles/Vol] 28 mmol/L Normal 20-31 [facility] Manager Clinical Applications Comment on above: Performed By: #### L IPD, CBCAD, HEP, TSH, VITD, BMP #### [facility] [address] [place], [place] [id number] Creatinine [Mass/Vol] 0.9 mg/dL Normal 0.7-1.4 [facility] Specialist Comment on above: Performed By: #### L IPD, CBCAD, HEP, TSH, VITD, BMP #### [facility] [address] [place], [place] [id number] eGFRAA 107 mL/min/1.73m2 Normal >60 [facility] Specialist Comment on above: Performed By: #### L IPD, CBCAD, HEP, TSH, VITD, BMP #### [facility] [address] [place], [place] [id number] eGFRNAA 88 mL/min/1.73m2 Normal >60 [facility] Specialist Comment on above: Performed By: #### L IPD, CBCAD, HEP, TSH, VITD, BMP #### [facility] [address] [place], [place] [id number] Glucose [Mass/Vol] 116 mg/dL High 65-99 Gamaliel [facility] [place] Manager Clinical Applications Comment on above: Result Comment: For FASTING Glucose --- ADA reference ranges: Normal 65-99 mg/dl Prediabetes 100-125 Diabetes >/= 126 Performed By: #### L IPD, CBCAD, HEP, TSH, VITD, BMP #### [facility] [address] [place], [place] [id number] Potassium [Moles/Vol] 4.2 mmol/L Normal 3.5-5.5 [facility] Specialist Comment on above: Performed By: #### L IPD, CBCAD, HEP, TSH, VITD, BMP #### [facility] [address] [place], [place] [id number] Sodium [Moles/Vol] 142 mmol/L Normal 135-146 [facility] Comment on above: Performed By: #### L IPD, CBCAD, HEP, TSH, VITD, BMP #### [facility] [address] [place], [place] [id number] Urea nitrogen [Mass/Vol] 11 mg/dL Normal 7-25 [facility] Specialist Comment on above: Performed By: #### L IPD, CBCAD, HEP, TSH, VITD, BMP #### [facility] [address] [place], [place] [id number] Complete Blood Count with Au to Diffon 08-25-2021 Basophils (Bld) [#/Vol] 0.02 10*3/uL Normal 0.00-0.20 [facility] Specialist Comment on above: Performed By: #### L IPD, CBCAD, HEP, TSH, VITD, BMP #### [facility] [address] [place], [place] [id number] Basophils/100 WBC (Bld) 0.4 % Normal [facility] Specialist Comment on above: Performed By: #### L IPD, CBCAD, HEP, TSH, VITD, BMP #### [facility] [address], [place] [id number] Eosinophils (Bld) [#/Vol] 0.16 10*3/uL Normal 0.02-0.50 [facility] Specialist Comment on above: Performed By: #### L IPD, CBCAD, HEP, TSH, VITD, BMP #### [facility] [address] [place], [place] [id number] Eosinophils/100 WBC (Bld) 3.4 % Normal [facility] Manager Clinical Applications Comment on above: Performed By: #### L IPD, CBCAD, HEP, TSH, VITD, BMP #### [facility] [address] [place], [place] [id number] Erythrocyte distribution width (RBC) [Ratio] 13.7 % Normal 11.0-15.0 [facility] Manager Clinical Applications Comment on above: Performed By: #### L IPD, CBCAD, HEP, TSH, VITD, BMP #### [facility] [address], [place] [id number] Hematocrit (Bld) [Volume fraction] 42.5 % Normal 38.5-50.0 [facility] Manager Clinical Applications Comment on above: Performed By: #### L IPD, CBCAD, HEP, TSH, VITD, BMP #### [facility] [address] [place], [place] [id number] Hemoglobin (Bld) [Mass/Vol] 13.7 g/dL Normal 13.0-17.1 [facility] Manager Clinical Applications Comment on above: Performed By: #### L IPD, CBCAD, HEP, TSH, VITD, BMP #### [facility] [address] [place], [place] [id number] Lymphocytes (Bld) [#/Vol] 1.1 10*3/uL Normal 0.9-3.9 [facility] Manager Clinical Applications Comment on above: Performed By: #### L IPD, CBCAD, HEP, TSH, VITD, BMP #### [facility] [address], [place] [id number] Lymphocytes/100 WBC (Bld) 23.9 % Normal [facility] Manager Clinical Applications Comment on above: Performed By: #### L IPD, CBCAD, HEP, TSH, VITD, BMP #### [facility] [address] [place], [place] [id number] MCH (RBC) [Entitic mass] 27.5 pg Normal 27.0-33.0 [facility] Manager Clinical Applications Comment on above: Performed By: #### L IPD, CBCAD, HEP, TSH, VITD, BMP #### [facility] [address] [place], [place] [id number] MCHC (RBC) [Mass/Vol] 32.2 g/dL Normal 32.0-36.0 [facility] Manager Clinical Applications Comment on above: Performed By: #### L IPD, CBCAD, HEP, TSH, VITD, BMP #### [facility] [address] [place], [place] [id number] MCV (RBC) [Entitic vol] 85 fL Normal 80-100 [facility] Specialist Comment on above: Performed By: #### L IPD, CBCAD, HEP, TSH, VITD, BMP #### [facility] [address] [place], [place] [id number] Monocytes (Bld) [#/Vol] 0.5 10*3/uL Normal 0.2-0.9 [facility] Specialist Comment on above: Performed By: #### L IPD, CBCAD, HEP, TSH, VITD, BMP #### [facility] [address], [place] [id number] Monocytes/100 WBC (Bld) 10.7 % Normal [facility] Specialist Comment on above: Performed By: #### L IPD, CBCAD, HEP, TSH, VITD, BMP #### [facility] [address] [place], [place] [id number] Neutrophils (Bld) [#/Vol] 2.9 10*3/uL Normal 1.5-7.8 [facility] Specialist Comment on above: Performed By: #### L IPD, CBCAD, HEP, TSH, VITD, BMP #### [facility] [address] [place], [place] [id number] Neutrophils/100 WBC (Bld) 61.2 % Normal [facility] Specialist Comment on above: Performed By: #### L IPD, CBCAD, HEP, TSH, VITD, BMP #### [facility] [address] [place], [place] [id number] Platelet mean volume (Bld) [Entitic vol] 10.30 fL Normal 7.50-12.50 [facility] Manager Clinical Applications Comment on above: Performed By: #### L IPD, CBCAD, HEP, TSH, VITD, BMP #### [facility] [address] [place], [place] [id number] Platelets (Bld) [#/Vol] 157 10*3/uL Normal 140-400 [facility] Manager Clinical Applications Comment on above: Performed By: #### L IPD, CBCAD, HEP, TSH, VITD, BMP #### [facility] [address] [place], [place] [id number] RBC (Bld) [#/Vol] 4.98 10*6/uL Normal 4.20-5.80 [facility] Manager Clinical Applications Comment on above: Performed By: #### L IPD, CBCAD, HEP, TSH, VITD, BMP #### [facility] [address] [place], [place] [id number] RDW-SD 42.2 fL Normal 37.0-50.0 [facility] Manager Clinical Applications Comment on above: Performed By: #### L IPD, CBCAD, HEP, TSH, VITD, BMP #### [facility] [address] [place], [place] [id number] WBC (Bld) [#/Vol] 4.8 10*3/uL Normal 3.8-11.0 Gamaliel [facility] [place] Manager Clinical Applications Comment on above: Performed By: #### L IPD, CBCAD, HEP, TSH, VITD, BMP #### [facility] [address] [place], [place] [id number] Hemoglobin A1Con 08-25-2021 EAG 208.73 Normal [facility] Manager Clinical Applications Comment on above: Performed By: #### A 1C #### [facility] [address] [place], [place] [id number] HbA1c (Bld) [Mass fraction] 8.9 % High 4.0-6.0 [facility] Manager Clinical Applications Comment on above: Performed By: #### A 1C #### [facility] [address] [place], [place] [id number] Hepatic Function Panelon Albumin [Mass/Vol] 4.7 g/dL Normal 3.6-5.1 Gamaliel rn [facility]imer Manager Clinical Applications Comment on above: Performed By: #### L IPD, CBCAD, HEP, TSH, VITD, BMP #### [facility] [address] [place], [place] [id number] Albumin/Globulin [Mass ratio] 2.2 {ratio} Normal 1.0-2.5 [facility] Manager Clinical Applications Comment on above: Performed By: #### L IPD, CBCAD, HEP, TSH, VITD, BMP #### [facility] [address] [place], [place] [id number] ALP [Catalytic activity/Vol] 60 U/L Normal 40-129 [facility] Specialist Comment on above: Performed By: #### L IPD, CBCAD, HEP, TSH, VITD, BMP #### [facility] [address] [place], [place] [id number] ALT [Catalytic activity/Vol] 20 U/L Normal 9-46 [facility] Specialist Comment on above: Result Comment: 08/09 Female reference range changed. Performed By: #### L IPD, CBCAD, HEP, TSH, VITD, BMP #### [facility] [address] [place], [place] [id number] AST [Catalytic activity/Vol] 24 U/L Normal 10-40 [facility] Specialist Comment on above: Performed By: #### L IPD, CBCAD, HEP, TSH, VITD, BMP #### [facility] [address] [place], [place] [id number] Bilirubin [Mass/Vol] 0.48 mg/dL Normal 0.30-1.20 [facility] Specialist Comment on above: Performed By: #### L IPD, CBCAD, HEP, TSH, VITD, BMP #### [facility] [address] [place], [place] [id number] DBIL <0.2 Normal [facility] Specialist Comment on above: Result Comment: Refe rence range change 07/26/2017. Prior reference range 0.1-0.3 mg/dL. Performed By: #### L IPD, CBCAD, HEP, TSH, VITD, BMP #### [facility] [address] [place], [place] [id number] Globulin (S) [Mass/Vol] 2.1 g/dL Normal 1.9-3.7 [facility] Specialist Comment on above: Performed By: #### L IPD, CBCAD, HEP, TSH, VITD, BMP #### [facility] [address] [place], [place] [id number] Protein [Mass/Vol] 6.8 g/dL Normal 6.1-8.1 [facility] Comment on above: Performed By: #### L IPD, CBCAD, HEP, TSH, VITD, BMP #### [facility] [address] [place], [place] [id number] Lipid Panelon 08-25-2021 Cholesterol [Mass/Vol] 172 mg/dL Normal 125-200 [facility] Specialist Comment on above: Result Comment: Low risk < 200mg/dL Borderline risk 201-239 mg/dl High risk > or equal to 240 Performed By: #### L IPD, CBCAD, HEP, TSH, VITD, BMP #### [facility] [address] [facility] [place] [id number] Cholesterol in HDL [Mass/Vol] 47 mg/dL Normal >40 [facility] Manager Clinical Applications Comment on above: Result Comment: High Cardiovascular Risk HDL <40 mg/dL Low Cardiovascular Risk HDL > or equal to 60 mg/dl Performed By: #### L IPD, CBCAD, HEP, TSH, VITD, BMP #### [facility] [address] [place], [place] [id number] Cholesterol in LDL [Mass/Vol] 79 mg/dL Normal [facility] Manager Clinical Applications Comment on above: Result Comment: LDL ATP III CLASSIFICATION LDL less than 100 mg/dl Optimal LDL 100-129 mg/dl Near or above optimal LDL 130-159 Borderline high LDL 160-189 High LDL greater than 189 mg/dl Very High Performed By: #### L IPD, CBCAD, HEP, TSH, VITD, BMP #### [facility] [address] [place], [place] [id number] Cholesterol in VLDL [Mass/Vol] 46 mg/dL Normal [facility] Manager Clinical Applications Comment on above: Performed By: #### L IPD, CBCAD, HEP, TSH, VITD, BMP #### [facility] [address] [place], [place] [id number] Cholesterol.total/C holesterol in HDL [Mass ratio] 4 {ratio} Normal [facility] Manager Clinical Applications Comment on above: Performed By: #### L IPD, CBCAD, HEP, TSH, VITD, BMP #### [facility] [address] [place], [place] [id number] Triglyceride [Mass/Vol] 231 mg/dL High 30-150 [facility] Manager Clinical Applications Comment on above: Result Comment: TRIG ATPIII CLASSIFICATIONS TRIG less than 150 mg/dl Normal TRIG 150-199 mg/dl Borderline High TRIG 200-500 mg/dl High TRIG greather than 500 mg/dl Very High Performed By: #### L IPD, CBCAD, HEP, TSH, VITD, BMP #### [facility] [address] [place], [place] [id number] Prostatic Specific Antigen, Totalon 08-25-2021 TPSA 1.270 ng/mL Normal <4.000 [facility] Specialist Comment on above: Result Comment: PSA Test Method: ECLIA/Alda e 601 Performed By: #### P SA #### [facility] [address] [place], [place] [id number] TSHon 08-25-2021 TSH 1.520 uIU/mL Normal 0.400-4.500 [facility] Manager Clinical Applications Comment on above: Performed By: #### L IPD, CBCAD, HEP, TSH, VITD, BMP #### [facility] [address] [place], [place] [id number] Vitamin D 25-OHon 08-25-2021 VIT D 25 OH 22 ng/ml Low >29 [facility] Specialist Comment on above: Result Comment: Anayeli min D Status Deficiency <20 ng/mL Insufficiency 20-29 ng/mL Optimal 30-100 ng/mL Possible Toxicity >=150 ng/mL Performed By: #### L IPD, CBCAD, HEP, TSH, VITD, BMP #### [facility] [address] [place], [place] [id number] Echocardiogramon 05-03-[address], [address] [place] [address] TRANSTHORACIC ECHOCARDIOGRAM REPORT Patient Name: ELSA Hutchinson Physician: [id number] Leo ESPINOZA MD Study Date: 05/03/2021 Referring [id number] LEO CHAVARRIA Physician: MRN/PID: [id number] PCP: Nikunj Mari Accession/Order#: [id number] Department [facility] Location: Date of : 1955 Fellow: Gender: M Nurse: Admit Date: Scanning Clerk: Jamila Obrien RD, T Height: 180.34 cm CC Report to: Weight: 84.82 kg Study Type: Echocardiogram BSA: 2.05 m2 Blood Pressure: 156 /80 mmHg Diagnosis/ICD: I35.0-Nonrheumatic aortic (valve) stenosis Indication: CAD, Diabetes, HTN, Hyperlipidemia, AK and PTCA-2017, CABG Procedure/CPT: Echo Complete w Full [id number] Study Detail: The following Echo studies were [...] 0.6 m/s (0.6-0.9m/s) PV Max P.6 mmHg [id number] Leo Graves MD Electronically signed on 05/04/2021 at 6:20:39 PM Final Normal [facility] 04-18-2021 ALT [Catalytic activity/Vol] 24 U/L Normal 9-46 [facility] Comment on above: Result Comment: NO C OLLECTION DATE RECEIVED. WE HAVE USED THE DATE THE SPECIMEN WAS RECEIVED BY THIS LABORATORY THE COLLECTION DATE. IF THIS IS INCORRECT, PLEASE CONTACT CLIENT SERVICES. PHONE NUMBER: [phone] Performed By: #### 8 23, 822, 63975 #### [facility] [address], [address] [place] [address] Real Estate Analyst: Ck Jarvis MD [place] 04-18-2021 AST [Catalytic activity/Vol] 26 U/L Normal 10-35 [facility] Comment on above: Performed By: #### 8 23, 822, 03334 #### [facility] [place] [address] Real Estate Analyst: Ck Jarvis MD LIPID PANEL WITH REFLEX TO D IRECT LDLon 04-18-2021 Cholesterol [Mass/Vol] 151 mg/dL Normal <200 [facility] Comment on above: Order Comment: FASTI NG: UNKNOWN Performed By: #### 8 23, 822, 65265 #### [facility] of [place] [address] Real Estate Analyst: Ck Jarvis MD Cholesterol in HDL [Mass/Vol] 40 mg/dL Normal > OR = 40 [facility] Comment on above: Order Comment: FASTI NG: UNKNOWN Performed By: #### 8 23, 822, 41037 #### [facility] [place] [address] Real Estate Analyst: Ck Jarvis MD Cholesterol in LDL [...] equation in the estimation of LDL-C. Ramy SS et al. GENIA. 2013;310(19): 6558-0741 (http://education.[place].Trainfox/faq/WYK101) Performed By: #### 8 23, 822, 93368 #### [facility] [place] [address] Real Estate Analyst: Ck Jarvis MD Cholesterol.total/C holesterol in HDL [Mass ratio] 3.8 {ratio} Normal <5.0 [facility] Comment on above: Order Comment: FASTI NG: UNKNOWN Performed By: #### 8 , 822, 95950 #### [facility] [address], [address] [place] [address] Real Estate Analyst: Ck Jarvis MD NON HDL CHOLESTEROL 111 mg/dL (calc) Normal <130 [facility] Comment on above: Order Comment: FASTI NG: UNKNOWN Result Comment: For patients with diabetes plus 1 major ASCVD risk factor, treating to a non-HDL-C goal of <100 mg/dL (LDL-C of <70 mg/dL) is considered a therapeutic option. Performed By: #### 8 , 822, 66730 #### [facility] [address], [address] [place] [address] Real Estate Analyst: Ck Jarvis MD Triglyceride [Mass/Vol] 216 mg/dL High <150 [facility] Comment on above: Order Comment: FASTI NG: UNKNOWN Result Comment: If a non-fasting specimen was collected, consider repeat triglyceride testing on a fasting specimen if clinically indicated. Yumiko et al. J. of Clin. Lipidol. 2015;9:129-169. Performed By: #### 8 , 822, 22157 #### [facility] [address], [address] [place], [place] [id number] Real Estate Analyst: Ck Jarvis MD RENALon 03-20-2021 RENAL [facility] Department of Radiology [address] [place] [id number] Patient Name: ELSA ESPINOZA : 1955 Sex: M Age: Race: White Pt. Location: [facility] Patient Status: D Ordered Date: 03/01/2021 9:55:00 AM Completed Date: 03/20/2021 04:00 PM Requesting Provider: PERICO ADAM Attending Provider: PERICO ADAM Report Copy To: Signs & Symptoms: N13.30 Unspecified hydronephrosis I10 History: [place] [id number] / per cigna/ passed med nec *er [...] redemonstrated. Electronically signed: Cristal Fernandes. Transcribed by: [email or web address], User Resident: Electronically Signed by: CRISTAL FERNANDES @ 03/21/2021 06:44 AM Normal [facility] *URINE CULTUREon 02-07-2021 *URINE CULTURE Clinical Report: (D) Specimen/Source: URINE/CLEAN VOID URINE Collected: 02/07/2021 20:35 Status: Final Last Updated: 02/10/2021 08:00 CULT RES (Final) <10,000 Cfu/Ml No Significant Growth Normal [facility] Comment on above: Performed By: #### 3 0339 #### [facility] [address] [facility] [address] BASIC METABOLIC PANELon 06-0 Calcium [Mass/Vol] 9.4 mg/dL Normal 8.6-10.3 [facility] Comment on above: Performed By: #### 0 0071 #### [facility] [address] [facility] [place] [address], [facility] Chloride [Moles/Vol] 96 mmol/L Low 98-107 [facility] Comment on above: Performed By: #### 0 0071 #### [facility] [address] [facility] [place] [address], [facility] CO2 [Moles/Vol] 28 mmol/L Normal 21-31 [facility] Comment on above: Performed By: #### 0 0071 #### [facility] [address] [facility] [place] [address], [facility] Creatinine [Mass/Vol] 0.87 mg/dL Normal 0.70-1.30 [facility] Comment on above: Performed By: #### 0 0071 #### [facility] [address] [facility] [place] [address], [facility] GFR/1.73 sq M.predicted among blacks MDRD (S/P/Bld) [Vol rate/Area] mL/min/{1.73_m2} Normal >60 [facility] Comment on above: Performed By: #### 0 0071 #### [facility] [address] [facility] [address], [facility] GFR/1.73 sq M.predicted among non-blacks MDRD (S/P/Bld) [Vol rate/Area] mL/min/{1.73_m2} Normal >60 [facility] Comment on above: Performed By: #### 0 0071 #### [facility] [address] Glucose [Mass/Vol] 220 mg/dL High 70-100 [facility] Comment on above: Performed By: #### 0 0071 #### [facility] [address] Potassium [Moles/Vol] 4.1 mmol/L Normal 3.5-5.1 [facility] Comment on above: Performed By: #### 0 1 #### [facility] [address] Sodium [Moles/Vol] 135 mmol/L Low 136-145 [facility] Comment on above: Performed By: #### 0 1 #### [facility] [address] Urea nitrogen [Mass/Vol] 9 mg/dL Normal 7-25 [facility] Comment on above: Performed By: #### 0 1 #### [facility] [address] CBC W/DIFFon 02-07-2021 ABS IMM GRANS 0.0 10*3/uL Normal 0.0-0.2 [facility] Comment on above: Performed By: #### 5 3 #### [facility] [address] ABS NEUTROPHILS 3.1 10*3/uL Normal 1.6-7.6 [facility] Comment on above: Performed By: #### 5 102 #### [facility] [address] Basophils (Bld) [#/Vol] 0.0 10*3/uL Normal 0.0-0.2 [facility] Comment on above: Performed By: #### 5 0103 #### [facility] [address] [place] [address], [facility] Basophils/100 WBC (Bld) 0.4 % Normal 0.0-1.0 [facility] Comment on above: Performed By: #### 5 0103 #### [facility] [address] [facility] [place] [address], [facility] Eosinophils (Bld) [#/Vol] 0.1 10*3/uL Normal 0.0-0.5 [facility] Comment on above: Performed By: #### 5 0103 #### [facility] [address] [place] [address], [facility] Eosinophils/100 WBC (Bld) 2.2 % Normal 0.0-6.0 [facility] Comment on above: Performed By: #### 5 0103 #### [facility] [address] Erythrocyte distribution width (RBC) [Ratio] 15.0 % Normal 11.5-15.0 [facility] Comment on above: Performed By: #### 5 0103 #### [facility] [address] [facility] Hematocrit (Bld) [Volume fraction] 40.2 % Normal 39.0-50.0 [facility] Comment on above: Performed By: #### 5 3 #### [facility] [address] [place] [address], [facility] Hemoglobin (Bld) [Mass/Vol] 13.0 g/dL Normal 13.0-17.0 [facility] Comment on above: Performed By: #### 5 3 #### [facility] [address] [facility] [place] [address], [facility] IMMATURE GRANS 0.4 % Normal 0.0-1.0 [facility] Comment on above: Performed By: #### 0103 #### [facility] [address] [place] [address], [facility] Lymphocytes (Bld) [#/Vol] 0.9 10*3/uL Low 1.2-4.0 [facility] Comment on above: Performed By: #### 3 #### [facility] [address] [facility] [place] [address], [facility] Lymphocytes/100 WBC (Bld) 19.9 % Low 20.0-45.0 [facility] Comment on above: Performed By: #### 3 #### [facility] [address] [facility] [place] [address], [facility] MCH (RBC) [Entitic mass] 25.9 pg Low 27.0-33.0 [facility] Comment on above: Performed By: #### 102 #### [facility] [address] [facility]. [address] MCHC (RBC) [Mass/Vol] 32.3 g/dL Normal 32.0-35.0 [facility] Comment on above: Performed By: #### 102 #### [facility] [address] [facility] [place] [address], [facility] MCV (RBC) [Entitic vol] 80.2 fL Low 82.0-98.0 [facility] Comment on above: Performed By: #### 5 3 #### [facility] [address] [facility] [place] [address], [facility] Monocytes (Bld) [#/Vol] 0.5 10*3/uL Normal 0.1-1.0 [facility] Comment on above: Performed By: #### 3 #### [facility] [address] [place] [address], [facility] MONOS 10.3 % Normal 5.0-12.0 [facility] Comment on above: Performed By: #### 102 #### [facility] [address] [place] [address], [facility] Neutrophils/100 WBC (Bld) 66.8 % Normal 40.0-72.0 [facility] Comment on above: Performed By: #### 5 0103 #### [facility] [address] [facility] [place] [address], [facility] Nucleated RBC/100 WBC (Bld) [Ratio] 0 % Normal 0-0 [facility] Comment on above: Performed By: #### 5 0103 #### [facility] [address] [facility] [place] [address], [facility] PLAT CNT 147 10*3/uL Low 150-400 [facility] Comment on above: Performed By: #### 5 0103 #### [facility] [address] [facility] [place] [address], [facility] RBC (Bld) [#/Vol] 5.01 10*6/uL Normal 4.20-5.70 [facility] Comment on above: Performed By: #### 5 0103 #### [facility] [address] [place] [address], [facility] WBC (Bld) [#/Vol] 4.58 10*3/uL Normal 4.00-10.60 [facility] Comment on above: Performed By: #### 5 3 #### [facility] [address] ABDOMEN AND PELVIS WO CON TRASTon 02-07-2021 CT ABDOMEN AND PELVIS WO CONTRAST [facility] Department of Radiology [address] [place] [address] Patient Name: ELSA ESPINOZA : 1955 Sex: M Age: Race: White Pt. Location: [facility] Patient Status: E Ordered Date: [...] nephrolithiasis. Electronically signed: Shauna Green. Transcribed by: [email or web address], User Resident: Electronically Signed by: SHAUNA GREEN @ 02/07/2021 10:10 PM Normal [facility] Comment on above: Order Comment: Renal Stones URINALYSIS REFLEXon 02-08-20 21 Appearance (U) CLOUDY Abnormal CLEAR [facility] Comment on above: Order Comment: Crite farhan for reflexing a culture was not met. Please call the lab at [phone] within 24 hours of collection time if culture is needed Performed By: #### 3 0965 #### [facility] [address] [place] [address], [facility] Bilirubin Ql (U) Negative Normal NEGATIVE [facility] Comment on above: Order Comment: Crite farhan for reflexing a culture was not met. Please call the lab at [phone] within 24 hours of collection time if culture is needed Performed By: #### 3 0965 #### [facility] [address] [place] [address], [facility] Color (U) MARA Abnormal YELLOW [facility] Comment on above: Order Comment: Crite farhan for reflexing a culture was not met. Please call the lab at 7668 within 24 hours of collection time if culture is needed Performed By: #### 3 0965 #### [facility] [address] [place] [id number], [facility] EPIS NONE SEEN Normal FEW,OCC,NON E SEEN [facility] Comment on above: Order Comment: Crite farhan for reflexing a culture was not met. Please call the lab at 7668 within 24 hours of collection time if culture is needed Performed By: #### 3 0965 #### [facility] [address] [place] [address], [place] Glucose Ql (U) >=500 Abnormal NEGATIVE [facility] Comment on above: Order Comment: Crite farhan for reflexing a culture was not met. Please call the lab at 7668 within 24 hours of collection time if culture is needed Performed By: #### 3 0965 #### [facility] [address] [place] [address], [facility] Hemoglobin Ql (U) LARGE Abnormal NEGATIVE [facility] Comment on above: Order Comment: Crite farhan for reflexing a culture was not met. Please call the lab at 7668 within 24 hours of collection time if culture is needed Performed By: #### 3 0965 #### [facility] [address] [place] [address], [facility] KETONE Negative Normal NEGATIVE [facility] Comment on above: Order Comment: Crite farhan for reflexing a culture was not met. Please call the lab at 7668 within 24 hours of collection time if culture is needed Performed By: #### 3 0965 #### [facility] [address] [place] [address], [facility] LEUK SUSU Negative Normal NEGATIVE [facility] Comment on above: Order Comment: Crite farhan for reflexing a culture was not met. Please call the lab at 7668 within 24 hours of collection time if culture is needed Performed By: #### 3 0965 #### [facility] [address] [facility] [address], [facility] Nitrite Ql (U) Negative Normal NEGATIVE [facility] Comment on above: Order Comment: Crite farhan for reflexing a culture was not met. Please call the lab at [phone] within 24 hours of collection time if culture is needed Performed By: #### 3 0965 #### [facility] [address] [place] [address], [facility] pH (U) 7.0 [pH] Normal 5.0-8.0 [facility] Comment on above: Order Comment: Crite farhan for reflexing a culture was not met. Please call the lab at 7668 within 24 hours of collection time if culture is needed Performed By: #### 3 0965 #### [facility] [address] [place] [address], [facility] Protein Ql (U) 30 mg/dL Abnormal NEGATIVE [facility] Comment on above: Order Comment: Crite farhan for reflexing a culture was not met. Please call the lab at 7668 within 24 hours of collection time if culture is needed Performed By: #### 3 0965 #### [facility] [address] RBC (U) [#/Vol] /uL Abnormal NONE SEEN [facility] Comment on above: Order Comment: Crite farhan for reflexing a culture was not met. Please call the lab at 7668 within 24 hours of collection time if culture is needed Performed By: #### 3 0965 #### [facility] [address] SPEC GRAV 1.023 High 1.015-1.020 [facility] Comment on above: Order Comment: Crite farhan for reflexing a culture was not met. Please call the lab at 7668 within 24 hours of collection time if culture is needed Performed By: #### 3 0965 #### [facility] [address] WBC UA NONE SEEN Normal NONE SEEN [facility] Comment on above: Order Comment: Crite farhan for reflexing a culture was not met. Please call the lab at [phone] within 24 hours of collection time if culture is needed Performed By: #### 3 0965 #### [facility] [address] *ENTERIC BACTERIAL DNA PANEL on 12-18-2020 *ENTERIC BACTERIAL DNA PANEL Clinical Report: (D) Specimen: STOOL Collected: 12/18/2020 11:45 Status: Final Last Updated: 12/19/2020 13:34 Shigella (Final) Negative Campy (Final) Negative Vibrio (Final) Negative ETEC (Final) Negative ShigaTox (Final) Negative SALM (Final) Negative Plesiom (Final) Negative Yersinia (Final) Negative Normal [facility] Comment on above: Performed By: #### 3 1598 #### [facility] [address] BASIC METABOLIC PANELon 04- Calcium [Mass/Vol] 8.5 mg/dL Low 8.6-10.3 [facility] Comment on above: Order Comment: No: D o not add to previous draw Performed By: #### 1 69, 99589 #### [facility] [address] [place] [address], [place] Chloride [Moles/Vol] 102 mmol/L Normal 98-107 [facility] Comment on above: Order Comment: No: D o not add to previous draw Performed By: #### 1 69, 84848 #### [facility] [address] [place] [address], [place] CO2 [Moles/Vol] 29 mmol/L Normal 21-31 [facility] Comment on above: Order Comment: No: D o not add to previous draw Performed By: #### 1 69, 40262 #### [facility] [address] [place] [address], [place] Creatinine [Mass/Vol] 1.01 mg/dL Normal 0.70-1.30 [facility] Comment on above: Order Comment: No: D o not add to previous draw Performed By: #### 1 69, 318[address] #### [facility] [address] [place] [address], [place] GFR/1.73 sq M.predicted among blacks MDRD (S/P/Bld) [Vol rate/Area] mL/min/{1.73_m2} Normal >60 [facility] Comment on above: Order Comment: No: D o not add to previous draw Performed By: #### 1 69, [id number] #### [facility] [address] [place] [address], [place] GFR/1.73 sq M.predicted among non-blacks MDRD (S/P/Bld) [Vol rate/Area] mL/min/{1.73_m2} Normal >60 [facility] Comment on above: Order Comment: No: D o not add to previous draw Performed By: #### 1 69, [id number] #### [facility] [address] [place] [address], [place] Glucose [Mass/Vol] 168 mg/dL High 70-100 [facility] Comment on above: Order Comment: No: D o not add to previous draw Performed By: #### 1 69, 82760 #### [facility] [address] [place] [address], [facility] Potassium [Moles/Vol] 3.8 mmol/L Normal 3.5-5.1 [facility] Comment on above: Order Comment: No: D o not add to previous draw Performed By: #### 1 69, #### [facility] [address] [place] [address], [place] Sodium [Moles/Vol] 140 mmol/L Normal 136-145 [facility] Comment on above: Order Comment: No: D o not add to previous draw Performed By: #### 1 69, [id number] #### [facility] [address] [place] [address], [facility] Urea nitrogen [Mass/Vol] 19 mg/dL Normal 7-25 [facility] Comment on above: Order Comment: No: D o not add to previous draw Performed By: #### 1 69, 43254 #### [facility] [address] [place] [id number], [facility] CBC COMPLETE BLOOD COUNTon 0 - Erythrocyte distribution width (RBC) [Ratio] 15.0 % Normal 11.5-15.0 [facility] Comment on above: Order Comment: No: D o not add to previous draw Performed By: #### 5 0608 #### [facility] [address] [place] [address], [facility] Hematocrit (Bld) [Volume fraction] 40.8 % Normal 39.0-50.0 [facility] Comment on above: Order Comment: No: D o not add to previous draw Performed By: #### 5 0608 #### [facility] [address] [address], [facility] Hemoglobin (Bld) [Mass/Vol] 12.7 g/dL Low 13.0-17.0 [facility] Comment on above: Order Comment: No: D o not add to previous draw Performed By: #### 5 0608 #### [facility] [address] [facility] [place] [address], [facility] MCH (RBC) [Entitic mass] 25.4 pg Low 27.0-33.0 [facility] Comment on above: Order Comment: No: D o not add to previous draw Performed By: #### 5 0608 #### [facility] [address] [facility] [place] [address], [facility] MCHC (RBC) [Mass/Vol] 31.1 g/dL Low 32.0-35.0 [facility] Comment on above: Order Comment: No: D o not add to previous draw Performed By: #### 5 0608 #### [facility] [address] [facility] [place] [address], [facility] MCV (RBC) [Entitic vol] 81.6 fL Low 82.0-98.0 [facility] Comment on above: Order Comment: No: D o not add to previous draw Performed By: #### 5 0608 #### [facility] [address] [facility] [place] [address], [facility] Nucleated RBC/100 WBC (Bld) [Ratio] 0 % Normal 0-0 [facility] Comment on above: Order Comment: No: D o not add to previous draw Performed By: #### 5 0608 #### [facility] [address] [facility] [place] [address], [facility] PLAT CNT 130 10*3/uL Low 150-400 [facility] Comment on above: Order Comment: No: D o not add to previous draw Performed By: #### 5 0608 #### [facility] [address] [place] [address], [facility] RBC (Bld) [#/Vol] 5.00 10*6/uL Normal 4.20-5.70 [facility] Comment on above: Order Comment: No: D o not add to previous draw Performed By: #### 5 0608 #### [facility] [address] [place] [id number], [facility] WBC (Bld) [#/Vol] 4.18 10*3/uL Normal 4.00-10.60 [facility] Comment on above: Order Comment: No: D o not add to previous draw Performed By: #### 5 0608 #### [facility] [address] MAGNESIUM BLOODon 12-18-2020 Magnesium [Mass/Vol] 1.8 mg/dL Low 1.9-2.7 [facility] Comment on above: Order Comment: No: D o not add to previous draw Performed By: #### 1 0070, [id number] #### [facility] [address] [facility] POC GLUCOSE EDon 12-18-2020 Glucose [Mass/Vol] 174 mg/dL High 70-100 [facility] Comment on above: Performed By: #### 0 0071 #### [facility] [address] [facility] [place] [address], [facility] Glucose [Mass/Vol] 134 mg/dL High 70-100 [facility] Comment on above: Performed By: #### 0 0071 #### [facility] [address] [facility] [address] POC SARS COV2 ANTIGEN NEGATI VEon 12-17-2020 POC SARS COV2 ANTIGEN NEG Negative Normal NEGATIVE [facility] Comment on above: Result Comment: Nega tive [...] signs and symptoms consistent with COVID-19. [facility] [employer] COVID-19 Antigen test is a lateral flow [...] Accreditation. Performed By: #### 3 1944 #### [address] HOSPon 06-19-2017 HOSP Office Visit OPHT (BROOK) ELSA ESPINOZA ([id number]) 1955 [facility] Time Provider Ndbampqvmc77/11/17 1:00 PM JATIN RICHMOND II During your [...] AssessedReason for Visit: Vision Loss [2068] Cmt: [place] Disability Exam Diabetes [34]Reason For Visit History [...] Presbyopia [H52.4]Order(s):VISUAL FIELD 30-2 OU (BOTH EYES) [[id number]] Order #: [id number]: 1 VISUAL FIELD WRIGHT OU (BOTH EYES) [[id number]] Order #: [id number]: 1 OCT OPTIC NERVE CIRRUS OU (BOTH EYES) [[id number]] Order #: [id number]: 1Prescriptions as of 06/19/2017 Sig: ATORVASTATIN 10 [...] JATIN RICHMOND II OD on 06/19/17 Normal [facility] PROGRESSon 06-19-2017 PROGRESS HNO ID: [id number] thor: Jatin Richmond IIService: (none)Author Type: OPTOMETRISTType: [...] and treatment options.Jatin Richmond, II, OD Normal [facility] Vital Signs Date Time Vital Sign Value Performing Clinician Facility 11-06-2023 10:45-0500 Body height 180.3 cm Leo Chavarria DO Work Phone: [facility] 11-06-2023 10:45-0500 Body mass index (BMI) [Ratio] 25.52 kg/m2 Leo Chavarria DO Work Phone: [facility] 11-06-2023 10:45-0500 Body weight 83.01 kg Leo Chavarria DO Work Phone: [facility] 11-06-2023 10:45-0500 Diastolic blood pressure 94 mm[Hg] Leo Chavarria DO Work Phone: [facility] 11-06-2023 10:45-0500 Heart rate 78 /min Leo Chavarria DO Work Phone: [facility] 11-06-2023 10:45-0500 Systolic blood pressure 160 mm[Hg] Leo Chavarria DO Work Phone: [facility] 11-06-2021 07:30-0500 58 1 Nikunj Fuentes Naderer Work Phone: [facility] Work Phone: Comment on above: [id number] 10-11-2021 09:12-0500 Body height 180.34 cm Nikunj Fuentes Naderer Work Phone: [facility] 250 DO Work Phone: 10-11-2021 09:12-0500 Body mass index (BMI) [Ratio] 25.38 kg/m2 Nikunj Fuentes Naderer Work Phone: [facility] 250 DO Work Phone: 10-11-2021 09:12-0500 Body surface area Derived from formula 2.03 m2 Nikunj Fuentes Naderer Work Phone: [facility] 250 DO Work Phone: 10-11-2021 09:12-0500 Body weight 82.56 kg Nikunj A Naderer Work Phone: [facility] 250 DO Work Phone: 10-11-2021 09:12-0500 Diastolic blood pressure 74 mm[Hg] Nikunj Mari Work Phone: [facility] 250 DO Work Phone: 10-11-2021 09:12-0500 Heart rate 65 /min Nikunj Mari Work Phone: [facility] 250 DO Work Phone: 10-11-2021 09:12-0500 Systolic blood pressure 134 mm[Hg] Nikunj Mari Work Phone: [facility] 250 DO Work Phone: Encounters Encounter Date Encounter Type Care Provider Facility Start: 08-20-2024 End: 08-21-2024 Refill Nikunj Mari MD Work Phone: [facility] Comment on above: Mild recurrent major depression (HCC) (CMS/HCC); BPH without urinary obstruction; Diabetic polyneuropathy associated with type 2 diabetes mellitus (CMS/HCC) Start: 07-06-2024 End: 07-06-2024 Refill Nikunj Mari MD Work Phone: [facility] Comment on above: Diabetic polyneuropa thy associated with type 2 diabetes mellitus (CMS/HCC) (Primary Dx); Mild recurrent major depression (HCC) (CMS/HCC); BPH without urinary obstruction Start: 02-14-2024 End: 02-14-2024 ambulatory [facility] Ambulatory Start: 12-26-2023 End: 12-26-2023 ambulatory NIKUNJ MARI Not Available Start: 12-12-2023 End: 12-12-2023 ambulatory [facility] Start: 11-18-2023 End: 11-18-2023 ambulatory Fred Chao Facility:[facility] Start: 11-06-2023 End: 11-06-2023 Office outpatient visit 25 minutes Leo Niyah Deon DO Work Phone: [facility] Comment on above: Echocardiogram abnor mal; Essential hypertension; 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; History of PTCA; Mixed hyperlipidemia; S/P CABG (coronary artery bypass graft); Small bowel obstruction ([facility] BMI 25.0-25.9,adult; Type 2 diabetes mellitus without complication, without long-term current use of insulin ([facility]) Start: 11-06-2023 End: 11-06-2023 ambulatory LEO CHAVARRIA [facility] Ambulatory Start: 10-21-2023 End: 10-21-2023 ambulatory NISH POLLACK Not Available Start: 10-21-2023 End: 10-21-2023 Office outpatient new 30 minutes Nish Pollack S[employer]IOR [employer] APPLICATIONS DEVELOPER-[employer] ARCHITECT Work Phone: [facility] Comment on above: Seborrheic keratosis ; Lentigines; Nevus; Actinic keratosis; Common wart; Inflamed seborrheic keratosis Start: 01-08-2023 ambulatory Marta ZULUAGA Facility:[facility] Start: 01-04-2023 End: 01-05-2023 ambulatory Marta ZULUAGA Facility:CD:[id number] Start: 01-04-2023 End: 01-05-2023 Evaluation and management of inpatient DE PAZ H ABEL Facility: Start: 11-03-2022 End: 11-04-[address] MONTY OCONNELL . Facility: Start: 08-27-2022 Rx Renewal Nikunj Mari Work Phone: [facility] 250 DO Work Phone: Start: 08-19-2022 Evaluation and manag ement of inpatient [facility] Start: 08-18-2022 End: 08-20-2022 Evaluation and management of inpatient [facility] Start: 08-18-2022 End: 08-18-[address] NIKUNJ MARI Facility: Start: 11-20-2021 Chart Update Nikunj Mari Work Phone: [facility] 250 DO Work Phone: Start: 11-15-2021 [facility], Provider: Leo Chavarria, Status: Pen, Time: 1:00 PM Nikunj A Naderer Work Phone: [facility] 250 DO Work Phone: Start: 11-09-2021 Telephone encounter Nikunj Daley erer Work Phone: [facility] 250 DO Work Phone: Start: 11-06-2021 Chart Update Nikunj Mari Work Phone: [facility] 250 DO Work Phone: Start: 11-06-2021 Patient encounter procedure Nikunj Varelar Work Phone: [facility] [place] Work Phone: Start: 10-25-2021 AUDIT Nikunj Mari Work Phone: [facility] 250 DO Work Phone: Start: 03-20-2021 End: 03-21-2021 ambulatory AHMED EL-ZAWAHRY Facility:[facility] Start: 03-09-2021 End: 04-03-2021 ambulatory AHMED EL-ZAWAHRY Facility:[facility] Start: 02-07-2021 End: 02-08-2021 Emergency department patient visit ESE KELLER Facility:[facility] Start: 12-17-2020 End: 12-18-2020 Evaluation and management of inpatient NEHEMIAS LINCOLN Facility:[facility] Start: 09-12-2017 End: 09-13-2017 Ambulatory JATIN RICHMOND [facility] Start: 06-19-2017 End: 06-20-2017 Ambulatory JATIN RICHMOND [facility] Procedures Date Procedure Procedure Detail Performing [...] End: 10-21-2023 CRYOTHERAPY SKIN LESION Nish Pollack SENIOR [employer]S DEVELOPER-[employer] ARCHITECT Work Phone: Start: 09-10-2016 Colonoscopy Nikunj clark MD Work Phone: Appendectomy Nikunj Fuentes Averybailey Work Phone: Cardiac catheterization Nikunj Mari Work Phone: Cholecystectomy Nikunj clark Work Phone: Colonoscopy Nikunj Alfredo Daleymary Work Phone: Comment on above: [id number] Mary Rodriguez kes; Coronary artery bypa ss graft Nikunj Fuentes Averybailey Work Phone: History of coronary artery bypass grafting S/P CABG (coronary artery bypass graft) Nikunj Daleylaybailey Work Phone: Comment on above: 2001 x5; History of coronary artery bypass grafting S/P CABG (coronary artery bypass graft) Leo Chavarria DO Work Phone: History of percutane ous transluminal coronary angioplasty History of PTCA Nikunj Mari Work Phone: History of percutane ous transluminal coronary angioplasty History of PTCA Leo Niyah Chavarria DO Work Phone: Operation on colon Nikunj Alfredo og Work Phone: Plan of Treatment Date Care Activity Detail Author Start: 09-10-2026 Screening for malign ant neoplasm of colon [facility] Start: 07-31-2025 Glaucoma screening Diabetes: R etinopathy Screening [facility] Start: 10-22-2024 End: 10-22-2024 Patient encounter procedure 10/22/2024 10:25 AM EST Office Visit [facility] [address] [place] [id number] Nish Pollack APRN-[employer] ARCHITECT [address] [place] [address] [facility] Start: 10-22-2024 End: 10-22-2024 Patient encounter procedure 10/22/2024 9:10 AM EST Office Visit [address] [phone] Leo Chavarria, DO [address] [facility] [address] [place], [place] [id number] [facility] Start: 08-22-2024 Urine screening for protein Diabetes: Urine Protein Screening [facility] Start: 05-10-2024 Influenza vaccination Influenza Vacc ine (#1) [facility] Start: 01-09-2024 End: 01-09-2024 Clinical Support 01/09/2024 8:30 AM EDT Clinical Support [address] [phone] [facility] Start: 01-08-2024 End: 01-08-2024 Patient encounter procedure 01/08/2024 7:00 AM EDT Office Visit [facility] [address] [place] [address] Nikunj Mari MD [address] [place] [address] [facility] Start: 11-21-2023 Hemoglobin A1c measurement Diabetes: Hemoglobin A1C [facility] Start: 11-06-2023 End: 11-06-2024 Lipid 1996 panel - Serum or Plasma Lipid Panel Lab Routine Mixed hyperlipidemia Expected: 11/06/2023 (Approximate), Expires: 11/06/2024 [facility] Service Area Work Phone: Comment on above: Expected: 11/06/2023 (Approximate), Expires: 11/06/2024 Start: 05-10-2023 Influenza vaccination Influenza Vacc ine (#1) [facility] Start: 04-04-2022 FUV, Provider: Leo Chavarria, Status: Pen, Time: 9:00 AM FUV, Provider: Leo Chavarria, Status: Pen, Time: 9:00 AM [facility] 250 DO Work Phone: Start: 11-23-2021 Hemoglobin A1c measurement Diabetes: Hemoglobin A1C [facility] Start: 11-13-2021 FUV, Provider: Leo Chavarria, Status: Pen, Time: 10:20 AM FUV, Provider: Leo Chavarria, Status: Pen, Time: 10:20 AM [facility] 250 DO Work Phone: Start: 11-06-2021 STRESS NUC, Provider : [place] HHVI NUCLEAR 01,[id number], Status: Pen, Time: 7:30 AM STRESS NUC, Provider: [place] HHVI NUCLEAR 01,[id number], Status: Pen, Time: 7:30 AM [facility] 250 DO Work Phone: Start: 11-16-2018 Screening for malign ant neoplasm of colon [facility] Start: 09-09-2014 Pneumococcal Vaccine : 65+ Years (2 - PCV) Pneumococcal Vaccine: 65+ Years (2 - PCV) [facility] Start: 09-09-2014 Pneumococcal Vaccine : 65+ Years (2 of 2 - PCV) Pneumococcal Vaccine: 65+ Years (2 of 2 - PCV) [facility] Start: 2006 Zoster Vaccines (1 o f 2) Zoster Vaccines (1 of 2) [facility] Start: 1978 DTaP/Tdap/Td Vaccine s (1 - Tdap) DTaP/Tdap/Td Vaccines (1 - Tdap) [facility] Start: 1975 Urine screening for protein Diabetes: Urine Protein Screening [facility] Start: 1974 Hepatitis C screening Hepatitis C [facility] Start: 1966 Diabetic foot examination Diabetes: Foot Exam [facility] Start: 1966 Glaucoma screening Diabetes: R etinopathy Screening [facility] Start: 1962 Pneumococcal Vaccine : 65+ Years (1 - PCV) Pneumococcal Vaccine: 65+ Years (1 - PCV) [facility] Start: 1956 COVID-19 Vaccine (#1) COVID-19 Vacci ne (#1) [facility] Start: 1956 Hemoglobin A1c measurement Diabetes: Hemoglobin A1C [facility] Start: 1956 Lipid panel Lipid Panel [facility] Start: 1956 Medicare Annual Wellness (AWV) Medicare Annual Wellness (AWV) [facility] Start: 1956 Medicare Annual Wellness Visit Medicare Annual Wellness Visit (AWV) [facility] Start: 1956 Screening for malign ant neoplasm of colon [facility] Immunizations Immunization Date Immunization Notes Care Provider Jonnathan root 06-05-2022 influenza virus vacc ine, unspecified formulation Nish Pollack SENIOR [employer] DEVELOPER-[employer] ARCHITECT Work Phone: [facility] 06-15-2021 influenza, high dose seasonal, preservative-free Nikunj A Naderer [facility] Work Phone: 07-31-2020 Influenza, injectabl e, Madin Oxford Canine Kidney, preservative free, quadrivalent Nikunj A Naderer Work Phone: [facility] Work Phone: 06-09-2020 influenza virus vacc ine, unspecified formulation Nikunj A Naderer [facility]: [facility] Work Phone: 07-06-2019 Influenza, injectabl e, Madin Kamla Canine Kidney, preservative free, quadrivalent Nikunj A Naderer Work Phone: [facility] 250 DO Work Phone: 06-09-2019 influenza virus vacc ine, unspecified formulation Nikunj A Naderer Work Phone: [facility] 250 DO Work Phone: 06-09-2018 influenza virus vacc ine, unspecified formulation Nikunj A Naderer Work Phone: [facility] 250 DO Work Phone: 06-25-2017 influenza virus vacc ine, unspecified formulation Nikunj A Naderer Work Phone: [place] [address] DO Work Phone: 06-09-2017 influenza, injectabl e, quadrivalent, preservative free Nikunj Mari Work Phone: [place] [address] DO Work Phone: 06-09-2016 influenza virus vacc ine, unspecified formulation Nikunj Mari Work Phone: [place] [address] DO Work Phone: 09-09-2013 pneumococcal polysaccharide vaccine, 23 valent Nikunj Mari Work Phone: [place] [address] DO Work Phone: Payers Date Payer Category Payer Self-pay 2023 Private Health Insurance [employer] [id number] 2023 Unknown [id number] 2019 Medicare [id number] 2016 Unknown 2016 Unknown [id number] 1959 Medicare [id number] 1959 Unknown [id number] 1956 Unknown [id number] [id number]. 647 1956 Unknown [id number] 2.16.840.1.947507.3.579.2. 647 1956 Unknown [id number] 2.16.840.1.285404.3.579.2. 647 1956 Unknown [id number] 2.16.840.1.877221.3.579.2. 647 1956 Unknown [id number] 2.16.840.1.325203.3.579.2. 593 1956 Unknown [id number] 2.16.840.1.911553.3.579.2. 593 1956 Unknown [id number] 2.16.840.1.865612.3.579.2. 593 1956 Unknown [id number] 2.16.840.1.893520.3.579.2. 727 1956 Unknown [id number] 2.16.840.1.742400.3.579.2. 727 1956 Unknown [id number] 2.16.840.1.364827.3.579.2. 1259 1956 Unknown [id number] 2.16.840.1.649667.3.579.2. 1259 1956 Unknown [id number] 2.16.840.1.585465.3.579.2. 1244 1956 Unknown [id number] 2.16.840.1.117851.3.579.2. 1244 1956 Unknown [id number] 2.16.840.1.348896.3.579.2. 1244 Private Health Insurance [id number] Unknown [id number] 2.16.840.1.424898.3.579.2. 531 Social History Date Type Detail Facility Start: 10-21-2023 End: 12-26-2023 No illicit drug use No illicit drug use -[facility] 250 DO Work Phone: Comment on above: 1 cup of coffee miller y and 1-2 20oz pop; 1 beer every night; Start: 07-10-2023 End: 11-04-2023 Tobacco smoking status NHIS Never smoked tobacco [facility] Start: 10-21-2023 End: 12-26-2023 Alcohol intake Lifetime non-drinker (finding) [facility] Start: 10-21-2023 End: 12-26-2023 Tobacco use panel [facility] Start: 07-10-2023 Alcohol Comment caffeine: 1-2 cups per day [facility] Start: 1955 Sex Assigned At Not on file [facility] Start: 11-06-2023 Alcohol intake Ex-drinker (finding) [facility] Work Phone: Start: 10-27-2023 End: 11-06-2023 Exposure to SARS-CoV-2 (event) Not sure [facility] Clinical Notes 12-19-2020 to 07-06-2024 Telephone Encounter - ETTA ESPINOZA - 07/06/2024 9:06 AM EDTTelephone Encounter - ETTA ESPINOZA - 07/06/2024 9:06 AM EDTLeo Chavarria DO - 11/06/2023 10:30 AM ESTPatient Instructions Note Date & Type Note Facility 07-06-2024 Telephone encounter Note Patient basaglar insulin is not covered patient request to go back on tresiba [facility] 07-06-2024 Miscellaneous Notes Patient basaglar insulin is not covered patient request to go back on tresiba documented in this encounter [facility] 11-06-2023 History of Present illness Narrative Subjective Elsa Espinoza is a 68 y.o. male Chief Complaint Annual Exam 68-year-old gentleman here for follow-up and doing well. He was recently evaluated at [facility] for small bowel obstruction. He historically had [...] , Rfl: omega-3 fatty acids-fish oil (One-Per-Day [place]-3) 684-1,200 mg capsule, Take 1 capsule (1,200 [...] 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 4. History of [...] discussion and plan. documented in this encounter [facility] Work Phone: 11-06-2023 Instructions Anjali Hicks [...] instructions on exercise. documented in this encounter [facility] Work Phone: 10-21-2023 History of Present [...] Actinic keratosis (15) Left Preauricular Area, Left Mormon, Mid Frontal Scalp, Mid Lower Vermilion Lip (3), Mid Occipital Scalp (3), Mid Parietal Scalp (4), Right Inferior [place], Right Mid [place] Erythematous scaly papules Patient was counseled regarding [...] limited to risks of scarring, darker or rebeamer pigmentary changes, recurrence, incomplete removal and infection. [...] skin lesion - Left Preauricular Area, Left Mormon, Mid Frontal Scalp, Mid Lower Vermilion Lip (3), Mid Occipital Scalp (3), Mid Parietal Scalp (4), Right Inferior [place], Right Mid [place] 5. Common wart Left [place] Middle 5th [...] limited to risks of scarring, darker or rebeamer pigmentary changes, recurrence, incomplete removal and infection. [...] year, skin check documented in this encounter [facility] 11-03-2022 Note CONSULTATION CONSULTATION DATE: 01/04/2023 REASON [...] as cholecystectomy. Had a prolonged course at [facility] by Dr. Pickard with temporary tracheostomy. In [...] hospital course. CC: Nikunj Mari M.D. [facility] 08-20-2022 Note SW met with pt and h is at bedside. Pt states he is feeling well and hoping to go home today. He states he is independent has no dme or HHC needs at home. His will transport him home. Patient denies any discharge needs. [facility] 08-20-2022 Note Attestation signed by Georgi Harvey [...] for DVT prophylaxis and plan for discharge [facility] DAILY PROGRESS NOTE Subjective [...] DM, HTN, HLD, pancreatitis who presents to [facility] as a transfer from [facility] for evaluation of SBO. Advance to regular diet today Replete electrolytes to keep K>4 and Mg>2; Mg bolus given this morning Pain and antiemetic control Incentive spirometry Ambulate/OOB DVT ppx: Lovenox Possible discharge if tolerates regular diet well Alfonso Covarrubias MD General Surgery PGY1 Vince Sweeney [address] 08-19-2022 Note Attestation signed by Lazaro Pickard MD at 08/23/2022 12:10 PM Attending Physician Statement I have discussed the case, including pertinent history and exam findings with Dr. Covarrubias, rn surgical pcu and have personally seen the patient. I agree with the assessment, plan and orders as documented. [phone] pager [phone] phone [facility] General Surgery DAILY PROGRESS NOTE Subjective [...] DM, HTN, HLD, pancreatitis who presents to [facility] as a transfer from [facility] for evaluation of SBO. Patient with abdominal pain and concern for SBO on CT. No distention noted. States that pain is improving. Continue NPO Continue NGT to LIS, possible clamping trial later today Continue IVF Pain and antiemetic control Replete electrolytes to keep K>4 and Mg>2 Incentive spirometry Ambulate/OOB DVT ppx: Lovenox Alfonso Dash, MD General Surgery Resident, PGY-2 I can be reached via [employer] [email or web address] [facility] 08-19-2022 Note [place] [facility] 12-19-2020 Note MR#: [id number] I [facility] Pt. Name: Elsa Espinoza Admitted: 12/17/2020 Discharged: 12/18/2020 Date of : 1955 Physician: Lazaro Pickard M.D. DISCHARGE SUMMARY PRINCIPAL DIAGNOSIS: Small bowel obstruction. SECONDARY DIAGNOSES: Coronary artery disease, status post coronary artery bypass grafting in 2001, diabetes. HOSPITAL COURSE: The patient is a 65-year-old male, who presented to [place] [facility] for complaints of increased abdominal pain with nausea. CT abdomen and pelvis showed a high-grade partial versus complete bowel obstruction. He was transferred to [facility]'s Emergency Department for further evaluation by Dr. Pickard, who has done multiple abdominal surgeries on the patient. NG was placed at [place] and had 300 mL of bilious drainage [...] the day of the encounter, performed the bogsg portion(s) of the service and participated in the management and confirm the resident's documentation. Please note there may be an additional personal documentation from me. Date Dict: 12/18/2020/02:27 P/Gloria Resendez CNP Date Trans: 12/18/2020 10:36 P/renetta [id number] cc: Nikunj Mari M.D. [address] [place] [address] [facility] Evaluation note Diagnosis Seborrheic keratosis Lentigines Nevus Benign neoplasm of skin, site unspecified Actinic keratosis Common wart Other specified viral warts Inflamed seborrheic keratosis documented in this encounter [facility] HealthcareEvaluation note* Diagnosis Echocardiogram abnormal Nonspecific (abnormal) findings on radiological and other examination of other intrathoracic organs Essential hypertension Unspecified essential hypertension 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 History of PTCA Postsurgical percutaneous transluminal coronary angioplasty status Mixed hyperlipidemia S/P CABG (coronary artery bypass graft) Postsurgical aortocoronary bypass status Small bowel obstruction (CMS/HCC) Unspecified intestinal obstruction BMI 25.0-25.9,adult Type 2 diabetes mellitus without complication, without long-term current use of insulin (CMS/HCC) documented in this encounter [facility] Work Phone: Evaluation note* Diagnosis Type 2 diabetes mellitus with hyperglycemia, with long-term current use of insulin (CMS/HCC)- Primary Benign essential hypertension (CMS/HCC) Essential hypertension, benign Iron deficiency anemia due to chronic blood loss Iron deficiency anemia secondary to blood loss (chronic) Gastroesophageal reflux disease without esophagitis Esophageal reflux Partial small bowel obstruction (CMS/HCC) Unspecified intestinal obstruction Mild recurrent major depression (HCC) (CMS/HCC) Major depressive disorder, recurrent episode, mild Diabetic polyneuropathy associated with type 2 diabetes mellitus (CMS/HCC)- Primary Mild recurrent major depression (HCC) (CMS/HCC) Major depressive disorder, recurrent episode, mild BPH without urinary obstruction documented in this encounter [facility] HealthcareEvaluation note* Diagnosis Type 2 diabetes mellitus with hyperglycemia, with long-term current use of insulin (CMS/HCC)- Primary Benign essential hypertension (CMS/HCC) Essential hypertension, benign Iron deficiency anemia due to chronic blood loss Iron deficiency anemia secondary to blood loss (chronic) Gastroesophageal reflux disease without esophagitis Esophageal reflux Partial small bowel obstruction (CMS/HCC) Unspecified intestinal obstruction Mild recurrent major depression (HCC) (CMS/HCC) Major depressive disorder, recurrent episode, mild Mild recurrent major depression (HCC) (CMS/HCC) Major depressive disorder, recurrent episode, mild BPH without urinary obstruction Diabetic polyneuropathy associated with type 2 diabetes mellitus (CMS/HCC) documented in this encounter [facility] HealthcareReason for referral (narrative)* Consultation (Routine) - Authorized Specialty Diagnoses / Procedures Referred By Contac t Referred To Contact Cardiology Diagnoses Essential hypertension Procedures Follow Up In Cardiology DeonLeo delgadillo, [address] [place] [address], [place] [phone] Referral ID Status Reason Start Date Expiration Date V isits Requested Visits Authorized [id number] Authorized 11/06/2023 11/05/2024 1 1 * Consultation (Routine) - Authorized Specialty Diagnoses / Procedures Referred By Contac t Referred To Contact Cardiology Diagnoses 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 Procedures Follow Up In Cardiology Leo Chavarria, [address] [place] [address] 2, [place] [phone] Leo Chavarria, [address] [place] [address], [place] [phone] Referral ID Status Reason Start Date Expiration Date V isits Requested Visits Authorized [id number] Authorized 11/06/2023 11/05/2024 1 1 [facility] Work Phone: Summary Purpose Family History Unknown Family Member Name Dates Details Family [...] section and content) DATE CREATED AUTHOR 03/04/2018 [facility] DATE CREATED AUTHOR AUTHOR'S ORGANIZ ATION 07/09/2021 [facility] DATE CREATED AUTHOR AUTHOR'S ORGANIZ ATION 10/12/2021 [facility] DATE CREATED AUTHOR AUTHOR'S ORGANIZ ATION 11/13/2021 [facility] DATE CREATED AUTHOR AUTHOR'S ORGANIZ ATION 11/22/2021 [facility] DATE CREATED AUTHOR AUTHOR'S ORGANIZ ATION 02/09/2022 [facility] DATE CREATED AUTHOR AUTHOR'S ORGANIZ ATION 09/20/2022 [facility] DATE CREATED AUTHOR AUTHOR'S ORGANIZ ATION 01/11/2023 [facility] DATE CREATED AUTHOR AUTHOR'S ORGANIZ ATION 01/16/2023 [facility] DATE CREATED AUTHOR AUTHOR'S ORGANIZ ATION 11/22/2023 [facility] DATE CREATED AUTHOR AUTHOR'S ORGANIZ ATION 12/13/2023 [facility] DATE CREATED AUTHOR AUTHOR'S ORGANIZ ATION 12/27/2023 [facility] EPIC DATE CREATED AUTHOR AUTHOR'S ORGANIZ ATION 03/16/2024 [facility] (unrecognized sect ion and content) No Status Records FoundNo Status Records FoundNo Status Records FoundNo Status Records FoundNo Status Records FoundNo Status Records FoundNo Status Records FoundNo Status Records FoundNo Status Records FoundNo Status Records FoundNo Status Records FoundNo Status Records Found Care Teams (unrecognized sec tion and content) Supervisor Rice Milling Relationship Specialty Start Date End Date Nikunj Mari MD [address] [place] [id number] PCP - General Cardiology 01/18/23 Supervisor Rice Milling Relationship Specialty Start Date End Date Nikunj Mari MD PCP - General 03/22/20 Supervisor Rice Milling Relationship Specialty Start Date End Date Nikunj Mari MD [address] [place] [address] PCP - General Cardiology 01/18/23 Nikunj Mrai MD [address] [place] [address] PCP - Medical [facility] 10/10/23 09/08/99 Reason for Visit (unrecogniz ed section and content) Reason Comments Annual Exam Reason Onset Date Comments Med Refill 07/06/2024 Reason Comments Med Refill FOR RECORDS PERTAINING TO PATIENTS WHO ARE [...] BE BASED ON THE PRIMARY CLINICAL RECORDS. [facility]. provides no warranty or guarantee of the accuracy or completeness of information in this document.
--- NOTE | 2024-08-27 20:26 | ECG_ITS ---
The [facility] Test Date: 2024-08-27 Pat Name: ELSA RUTHERFORD Department: Room: - Gender: Male It Support Manager: : 1955 Requested By: YOANA MARI Order Number: [id number] Reading MD: SHILOH PATTERSON Measurements Intervals [place] Rate: 72 P: 46 NV: 160 QRS: 25 QRSD: 106 T: 62 QT: 408 QTc: 432 Interpretive Statements 1100 Sinus rhythm 2420 RSR (QR) in lead V1/V2, consistent with right ventricular conduction delay 9130 borderline ECG Compared to ECG 07/23/2023 13:12:33 No significant changes Electronically Signed On 08-28-2024 7:00:29 EST by SHILOH PATTERSON
--- NOTE | 2024-08-27 20:27 | CT_ITS ---
[address] [address] Patient Name: ELSA RUTHERFORD MRN: [id number] date: 1955 Sex: M Assigned Patient Location: ER Current Patient Location: ER Accession/Order Number: [id number] Exam Date: 08/27/2024 21:20 Report Date: 08/27/2024 22:30 At the request of: NIGEL DIAZ Procedure: CT abdomen pelvis w con CT ABDOMEN/PELVIS WITH IV CONTRAST. INDICATION: Pain, vomiting, possible bowel obstruction. COMPARISON: 02/06/2024. TECHNIQUE: Contiguous axial images were obtained from the lung bases to the pelvic floor following the intravenous administration of contrast. Coronal and sagittal reformations are provided. FINDINGS: LOWER LUNGS: There is atelectasis in the lower lobes. LIVER/BILIARY TREE: Stable 1.7 cm right hepatic lobe cyst. No intrahepatic ductal dilatation. GALLBLADDER: Absent.. CBD: Normal CBD. SPLEEN: Normal in size. PANCREAS: No acute findings. No peripancreatic fluid or inflammation. No pancreatic duct dilatation. No discrete mass. ADRENALS: Normal. KIDNEYS: No hydronephrosis. There are nonobstructing bilateral renal stones measuring up to 1 cm. STOMACH AND BOWEL: Stomach is unremarkable. There are dilated small bowel loops measuring up to 5.4 cm with transitioning in the right anterior abdomen. No evidence of perforation. . Status post right hemicolectomy. PERITONEAL CAVITY: There is trace free fluid in the lower abdomen. No free air.. No fat stranding. ABDOMINAL WALL: No subcutaneous stranding. No subcutaneous fluid collection. LYMPH NODES: No mesenteric or retroperitoneal lymphadenopathy by CT criteria. ABDOMINAL AORTA: No aneurysm. PELVIS: No acute abnormality. MUSCULOSKELETAL: No acute osseous abnormality. CT/CT abdomen pelvis w con IMPRESSION: Findings are suggestive of a small bowel obstruction with transitioning in the right anterior abdomen.. Electronically authenticated by: OREN CAMERON Date: 08/27/2024 22:30
--- NOTE | 2024-08-27 20:28 | ED.ABDPAIN1 ---
HPI - Abdominal Pain General Chief Complaint: Abdominal Pain Stated Complaint: ABD PAIN Time Seen by Provider: 08/27/24 20:23 Source: patient Mode of arrival: walk-in Limitations: no limitations History of Present Illness HPI narrative: 69-year-old male presents for abdominal pain and nausea and vomiting. The symptoms began this morning and he is worried about having a bowel obstruction, he has had them before. He has had numerous abdominal surgeries and small bowel obstructions. He had a bowel obstruction in September of this year and the last time he had abdominal surgery was in 2014. His pain is moderate to severe and continuous. No hematemesis or fever. Related Data Home Medications ?Medication ?Instructions ?Recorded ?Confirmed atorvastatin 10 mg tablet (Lipitor) 10 mg PO QPM 07/23/23 08/27/24 gabapentin 300 mg capsule 300 mg PO Q12H 07/23/23 08/27/24 isosorbide mononitrate 60 mg 60 mg PO DAILY 07/23/23 08/27/24 tablet,extended release 24 hr metformin 1,000 mg tablet 1,000 mg PO BID 07/23/23 08/27/24 metoprolol succinate 25 mg 25 mg PO QPM 07/23/23 08/27/24 tablet,extended release 24 hr polyethylene glycol 3350 17 gram 17 g PO DAILY PRN constipation 07/23/23 08/27/24 oral powder packet (Miralax) ranolazine 500 mg tablet,extended 500 mg PO Q12H 07/23/23 08/27/24 release,12 hr sucralfate 1 gram tablet (Carafate) 1 g PO BID 07/23/23 08/27/24 tamsulosin 0.4 mg capsule 0.4 mg PO DAILY 07/23/23 08/27/24 venlafaxine 150 mg 150 mg PO DAILY 07/23/23 08/27/24 capsule,extended release 24 hr insulin degludec 200 unit/mL (3 40 unit subcut QPM 12/08/23 08/27/24 mL) subcutaneous pen (Tresiba FlexTouch U-200 insulin) sitagliptin phosphate 100 mg 100 mg PO DAILY 12/08/23 08/27/24 tablet (Januvia) acetaminophen 500 mg tablet 500 mg PO Q6H PRN fever or pain 02/07/24 08/27/24 (Tylenol Extra Strength) ascorbic acid (vitamin C) 500 mg 500 mg PO DAILY 02/07/24 08/27/24 tablet (C-500) aspirin 81 mg tablet,delayed 81 mg PO DAILY 02/07/24 08/27/24 release biotin 5 mg tablet 5 mg PO DAILY 02/07/24 08/27/24 cholecalciferol (vitamin D3) 125 125 mcg PO DAILY 02/07/24 08/27/24 mcg (5,000 unit) tablet (Vitamin D3) esomeprazole magnesium 40 mg 40 mg PO DAILY 02/07/24 08/27/24 capsule,delayed release ferrous sulfate 325 mg (65 mg 325 mg PO DAILY 02/07/24 08/27/24 iron) tablet (FeroSul) folic acid 400 mcg tablet 400 mcg PO DAILY 02/07/24 08/27/24 losartan 100 mg tablet 50 mg PO DAILY 02/07/24 08/27/24 magnesium 500 mg tablet 500 mg PO QPM 02/07/24 08/27/24 meclizine 25 mg chewable tablet 25 mg PO TID PRN dizziness 02/07/24 08/27/24 (Antivert) multivitamin with folic acid 400 1 tab PO QPM 02/07/24 08/27/24 mcg tablet (One Daily Multivitamin) nitroglycerin 0.4 mg sublingual 0.4 mg sublingual Q5M PRN chest 02/07/24 08/27/24 tablet pain omega 4-rio-rak-fish oil 1,200 mg 1 cap PO QPM 02/07/24 08/27/24 (144 mg-216 mg) capsule (Fish Oil) ondansetron HCl 4 mg tablet 4 mg PO Q6H PRN nausea and vomiting 02/07/24 08/27/24 venlafaxine 75 mg capsule,extended 75 mg PO QPM PRN anxiety 02/07/24 08/27/24 release 24 hr (Effexor XR) vit C 250 mg-vit E 90 mg-zinc 40 1 tab PO QPM 02/07/24 08/27/24 mg-copper 1 xm-daywiu-wtpaye capsule (PreserVision AREDS-2) vitamin B complex 1 tab PO DAILY 02/07/24 08/27/24 Allergies Allergy/AdvReac Type Severity Reaction Status Date / Time dronabinol (From Marinol) Allergy Severe Hallucinati Verified 08/27/24 20:19 ng hydromorphone (From Dilaudid) AdvReac Unknown Anaphylaxis Verified 08/27/24 20:19 Review of Systems ROS Narrative A ten point review of systems is negative except as noted above. PFSH PFS Medical History (Updated 08/27/24 @ 22:49 by Franklin Madera MD) Depression ?F32.A - Depression, unspecified (ICD-10) CAD (coronary artery disease) ?I25.10 - Atherosclerotic heart disease of [place] coronary artery without angina pectoris (ICD-10) BPH (benign prostatic hyperplasia) ?N40.0 - Benign prostatic hyperplasia without lower urinary tract symptoms (ICD-10) GERD (gastroesophageal reflux disease) ?K21.9 - Gastro-esophageal reflux disease without esophagitis (ICD-10) Diabetic neuropathic arthropathy ?E11.610 - Type 2 diabetes mellitus with diabetic neuropathic arthropathy (ICD-10) Type 2 diabetes mellitus ?E11.9 - Type 2 diabetes mellitus without complications (ICD-10) Hypertension ?I10 - Essential (primary) hypertension (ICD-10) Surgical History Hx of cholecystectomy ?Z90.49 - Acquired absence of other specified parts of digestive tract (ICD-10) H/O heart bypass surgery ?Z95.1 - Presence of aortocoronary bypass graft (ICD-10) History of bowel resection ?Z90.49 - Acquired absence of other specified parts of digestive tract (ICD-10) Family History Father Family history of CHF (congestive heart failure) Family history of COPD (chronic obstructive pulmonary disease) Family history of cancer Family history of hypertension Grandfather Family history of diabetes mellitus Family history of myocardial infarction Mother Family history of hypertension Family history of stroke Social History Within the past year, how often did you have a drink containing alcohol: 4 or more times a week Within the past year, how many standard drinks containing alcohol did you have on a typical day: 1 or 2 Within the past year, how often did you have six or more drinks on one occasion: never Total score: 0 Score interpretation: Questions 2 and 3 are 0. It can be assumed that the patient's drinking is below the recommended limits. However, please confirm the accuracy of the patient's alcohol intake over the last few months. 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 Known occupational exposures/hazards: No Highest level of school completed/degree received: high school graduate Do you want help with school or training: No Are you now , , , , never or living with a partner: In a typical week, how many times do you talk on the telephone with family, friends, or neighbors: 3 or more times per week How often do you get together with friends or relatives: 3 or more times per week How often do you attend mandaen or holiness services: never Do you belong to any clubs or organizations such as mandaen groups unions, fraternal or athletic groups, or school groups: no Total score: 2 Score interpretation: A score of greater than or equal to 2 indicates the lowest level of social isolation. Little interest or pleasure in doing things: not at all Feeling down, depressed, or hopeless: not at all Feel stressed/tense/nervous/anxious/difficulty sleeping: not at all Due to disability, difficulty making decisions: No Do you think of yourself as: straight/heterosexual Gender Identity: male Exam Narrative Exam Narrative: Nurses note and vital signs reviewed and patient is not hypoxic. General: The patient appears well and in no apparent distress. Patient is resting comfortably on cart. Skin: Warm, dry, no pallor noted. There is no rash noted. Head: Normocephalic, atraumatic Eye: Normal conjunctiva, no drainage Ears, Nose, Mouth, and Throat: oral mucosa is moist. Nares patent. Cardiovascular: Regular Rate and Rhythm Respiratory: Patient is in no distress, no accessory muscle use, lungs are clear to auscultation, no wheezing, rales or rhonchi Back: non-tender GI: Soft and nondistended. Numerous healed surgical scars present. He has diffuse tenderness Musculoskeletal: The patient has no evidence of calf tenderness, no pitting edema, symmetrical pulses noted bilaterally Neurological: A&O, normal speech Psychiatric: Cooperative Constitutional Vital Signs, click to edit/add: Last Vital Signs Temp 97.7 F 08/27/24 20:15 Pulse 75 08/27/24 22:00 Resp 14 08/27/24 22:00 BP 178/96 H 08/27/24 22:00 Pulse Ox 99 08/27/24 20:57 O2 Del Method Room Air 08/27/24 20:57 Course Vital Signs Vital signs: Vital Signs Temperature 97.7 F 08/27/24 20:15 Pulse Rate 72 08/27/24 20:15 Respiratory Rate 15 08/27/24 20:15 Blood Pressure 172/105 H 08/27/24 20:15 Pulse Oximetry 98 08/27/24 20:15 Oxygen Delivery Method Room Air 08/27/24 20:15 Temperature 97.7 F 08/27/24 20:15 Pulse Rate 75 08/27/24 22:00 Respiratory Rate 14 08/27/24 22:00 Blood Pressure 178/96 H 08/27/24 22:00 Pulse Oximetry 99 08/27/24 20:57 Oxygen Delivery Method Room Air 08/27/24 20:57 MDM - Abdominal Pain MDM Narrative Medical decision making narrative: Small bowel obstruction is identified on his CAT scan. NG tube inserted and he was given IV morphine and Zofran for nausea and pain. We do not have general surgery coverage here and the patient is requesting transfer to [facility] and he has seen Dr. Umanzor there previously. Tonight I spoke to Dr. Cruz who accepts the patient and the patient is stable and agreeable for transfer. Treatment diagnosis and disposition were discussed thoroughly. Differential Diagnosis Differential diagnosis: Likely abdominal pain, constipation, diverticulitis, gastroenteritis, pancreatitis, small bowel obstruction and other (Colitis) Lab Data Attestation: I reviewed the patient's lab results. Labs: Lab Results 08/27/24 Range/Units 20:40 WBC 8.3 (4.0-11.0) 10^3/uL RBC 5.17 (4.70-6.10) 10^6/uL Hgb 13.8 L (14.0-18.0) g/dL Hct 42.1 (42.0-54.0) % MCV 81.4 (80.0-94.0) fL MCH 26.7 (25.9-34.0) pg MCHC 32.8 (29.9-35.2) g/dL RDW 13.2 (11.0-15.0) % Plt Count 178 (150-450) 10^3/uL MPV 10.1 (9.5-13.5) fL Neut % (Auto) 81.1 H (43.0-75.0) % Lymph % (Auto) 10.3 L (20.5-60.0) % [place] % (Auto) 6.5 (1.7-12.0) % Eos % (Auto) 1.7 (0.9-7.0) % Baso % (Auto) 0.2 (0.2-2.0) % Neut # (Auto) 6.7 H (1.4-6.5) 10^3/uL Lymph # (Auto) 0.9 L (1.2-3.8) 10^3/uL [place] # (Auto) 0.5 (0.3-0.8) 10^3/uL Eos # (Auto) 0.1 (0.0-0.7) 10^3/uL Baso # (Auto) 0.0 (0.0-0.1) 10^3/uL Abs Immat Gran (auto) 0.02 (0.00-0.03) 10^3/uL Imm/Tot Granulo (auto) 0.2 (0.0-0.5) % Sodium 136 (136-145) mmol/L Potassium 4.2 (3.5-5.1) mmol/L Chloride 100 (98-107) mmol/L Carbon Dioxide 27.6 (21.0-32.0) mmol/L Anion Gap 12.6 BUN 9.0 (7.0-18.0) mg/dL Creatinine 1.11 (0.70-1.30) mg/dL Est GFR ( Amer) >60 (>=60 mL/min/1.73m^2) Est GFR (Non-Af Amer) >60 (>=60 mL/min/1.73m^2) BUN/Creatinine Ratio 8.1 Glucose 273 H (74-106) mg/dL Calcium 9.7 (8.5-10.1) mg/dL Total Bilirubin 0.6 (0.2-1.0) mg/dL Direct Bilirubin 0.1 (0.0-0.2) mg/dL AST 21 (15-37) U/L ALT 26 (16-63) U/L Alkaline Phosphatase 68 (46-116) U/L Total Protein 7.3 (6.4-8.2) g/dL Albumin 3.9 (3.4-5.0) g/dL Globulin 3.4 g/dL Albumin/Globulin Ratio 1.1 Amylase 60 (25-115) U/L Lipase 104.0 H (16.0-77.0) U/L Imaging Data CT scan - abdomen: Radiologist's impression: ITS Impressions Abdomen/Pelvis CT 08/27/24 20:27 IMPRESSION: Findings are suggestive of a small bowel obstruction with transitioning in the right anterior abdomen.. Electronically authenticated by: OREN CAMERON Date: 08/27/2024 22:30 Discharge Plan Discharge Chief Complaint: Abdominal Pain Clinical Impression: Small bowel obstruction Patient Disposition: [facility] Time of Disposition Decision: 22:49 Discharge Location: [facility] Condition: Fair Mode of Transportation: EMS
[2024-08-27] MEDS: MORPHINE SULFATE 4 MG/ML VIAL IV ×2 (20:50→22:42)
[2024-08-27] MEDS: 0.9 % SODIUM CHLORIDE 1,000 ML 1000 ML IV (20:51)
[2024-08-27] MEDS: ONDANSETRON PF 4 MG/2 ML VIAL IV ×2 (20:52→22:43)
[2024-08-27 20:55] LABS: Basophils Percent Auto 0.2 % (0.2-2.0); Eosinophils Absolute Auto 0.1 10^3/uL (0.0-0.7); Eosinophils Percent Auto 1.7 % (0.9-7.0); Hematocrit 42.1 % (42.0-54.0); Hemoglobin 13.8 g/dL (14.0-18.0); Immature Granulocytes Abs Auto 0.02 10^3/uL (0.00-0.03); Immature Granulocytes Pct Auto 0.2 % (0.0-0.5); Lymphocytes Absolute Auto 0.9 10^3/uL (1.2-3.8); Lymphocytes Percent Auto 10.3 % (20.5-60.0); Mean Corpuscular HGB Conc 32.8 g/dL (29.9-35.2); Mean Corpuscular Hemoglobin 26.7 pg (25.9-34.0); Mean Corpuscular Volume 81.4 fL (80.0-94.0); Mean Platelet Volume 10.1 fL (9.5-13.5); Monocytes Absolute Auto 0.5 10^3/uL (0.3-0.8); Monocytes Percent Auto 6.5 % (1.7-12.0); Neutrophils Absolute Auto 6.7 10^3/uL (1.4-6.5); Neutrophils Percent Auto 81.1 % (43.0-75.0); Platelet Count 178 10^3/uL (150-450); Red Blood Count 5.17 10^6/uL (4.70-6.10); Red Cell Distribution Width 13.2 % (11.0-15.0); White Blood Count 8.3 10^3/uL (4.0-11.0)
[2024-08-27 21:12] LABS: Anion Gap 12.6; BUN Creatinine Ratio 8.1; Calcium 9.7 mg/dL (8.5-10.1); Carbon Dioxide 27.6 mmol/L (21.0-32.0); Chloride 100 mmol/L (98-107); Estimated GFR (African America >60 (>=60 mL/min/1.73m^2); Estimated GFR (Non-African Ame >60 (>=60 mL/min/1.73m^2); Glucose 273 mg/dL (74-106); Potassium 4.2 mmol/L (3.5-5.1); Sodium 136 mmol/L (136-145)
[2024-08-27 21:14] LABS: Alanine Aminotransferase 26 U/L (16-63); Albumin Globulin Ratio 1.1; Albumin Level 3.9 g/dL (3.4-5.0); Alkaline Phosphatase 68 U/L (46-116); Amylase 60 U/L (25-115); Aspartate Amino Transferase 21 U/L (15-37); Bilirubin Direct 0.1 mg/dL (0.0-0.2); Bilirubin Total 0.6 mg/dL (0.2-1.0); Globulin 3.4 g/dL; Total Protein 7.3 g/dL (6.4-8.2)
--- NOTE | 2024-08-27 23:09 | PC.NURSE ---
At 2300, a # 18 FR NG inserted to L nare x one attempt. Yellow GI contents aspirated. Attached to LIWS at 80 mm/hg. 300 ml yellow colored fluid out immediately. Pt was well tolerated by pt.
[2024-08-28] VITALS (13 sets, daily range): BP systolic 131–146; BP diastolic 71–80; PULSE 72–118
[2024-08-28] MEDS: ONDANSETRON PF 4 MG/2 ML VIAL IV ×2 (00:49→02:01)
--- NOTE | 2024-08-28 01:08 | PC.NURSE ---
Report called to Bert at [facility].
== END 2024-08-28 02:13 | disposition short-term general hospital (02) ==
PROVIDERS: Emergency Provider Emergency Medicine; PCP Family Medicine
DX: K56.609 Unspecified intestinal obstruction, unspecified as to partial versus complete obstruction (principal); Z90.49 Acquired absence of other specified parts of digestive tract; Z95.1 Presence of aortocoronary bypass graft
CPT/HCPCS: 36415; 74177; 80048; 80076; 81001; 82150; 83690; 85025; 93005; 96361; 96374; 96375; 96376; 99285; J2270; J2405; Q9967